=== PATIENT | male | born 1960 | race Caucasian/White ===

== ENCOUNTER 2018-02-16 19:20 | Inpatient (IN) | payer BC ==
[~2018-02-16] VITALS: Ht 188 cm; Wt 116.3 kg
[2018-02-16 20:30] VITALS: BP 100/55; RESP 18
[2018-02-16 20:45] VITALS: BP 111/67; RESP 18
[2018-02-16 21:15] VITALS: Ht 188 cm; Wt 116.3 kg
--- NOTE | 2018-02-16 22:09 | HP ---
Date/Time of Note Date/Time of Note DATE: 02/16/18 TIME: 22:09 Assessment/Plan VTE Prophylaxis Pharmacological prophylaxis: heparin Assessment/Plan Hospital Course This is a 57-year-old male being admitted to the [facility] floor for: #1 left lower extremity cellulitis: Vancomycin IV per pharmacy, at the transfer facility patient did have a white blood cell count of 17.8. Will check an ESR level. #2 left great toe metatarsal wound: Wound does not appear to be draining. At the current time will obtain x-rays. Consider podiatry consultation. #3 diabetes mellitus: We will check a hemoglobin A1c, insulin sliding scale #4 obesity: We will check hemoglobin A1c, lipid panel, TSH #5 DVT GI prophylaxis: Heparin, no GI prophylaxis indicated Further treatment strategy will be implemented as per the clinical course. HPI/ROS Admit Date/Time Admit Date/Time Feb 16, 2018 at 20:38 Hx of Present Illness Chief complaint: Left foot swelling redness times 4 days This is a 57-year-old male who was transferred from an outside facility with complaints of left foot swelling and redness times 4 days. Please note and H&P was not provided in the transfer documentation nor was there any imaging studies provided. Patient reports that for the last 4 days approximately he has noticed left foot swelling and redness. He denies any fevers. He also reports that he has a wound on his left foot below his great toe which has been going on for approximately 1 month. He denies any drainage from the wound. He reports that he takes basaglar insulin as needed and not on a daily basis. Pertinent laboratory findings from transfer facility: White blood cell count 17.8, BUN 27/creatinine 1.58 Allergies: Ceftriaxone Medications: See ANGELINA BENSON Const: As per HPI Eyes : No pain discharge or redness or change in visual acuity ENT: No pain, sore throat, congestion, congestion, dysphagia or discharge Respiratory: No shortness of breath, cough, sputum, wheezing, or pleuritic pain Cardiovascular: No chest pain, palpitation, PND, or edema GI : no change in appetite, abdominal pain, nausea, vomiting, diarrhea, constipation, or change in the color his stool Genitourinary: No dysuria, hematuria, flank pain , discharge or CVA tenderness Musculoskeletal: As per HPI Skin: As per HPI Neuro: No headache, dizziness, syncope, seizure, focal weakness Endocrine: No polyuria, polydipsia, temperature intolerance Psych: No hallucination, depression, anxiety or suicidal ideation PMH/Family/Social Past Medical History Diabetes mellitus Coded Allergies: ceftriaxone (Verified Allergy, Mild, 02/16/18) Past Surgical History Right second toe amputation Family History Significant Family History: no pertinent family hx Social History Alcohol Use: none Smoking Status: Never smoker Drug Use: none Exam/Review of Systems Exam Exam General: Patient is currently lying in bed in no acute distress HEENT: Atraumatic, normocephalic. The pupils are equal, round and reactive. Extraocular motor are intact Neck: Supple with full range of motion. No rigidity or meningismus Chest: Nontender Lungs: Clear to auscultation bilaterally no crackles rales or wheezing Heart: Normal S1-S2, Regular rhythm and rate. No murmur, S3, or S4 Abdomen: Soft , nontender, nondistended , bowel sounds are present. No guarding no rebound tenderness , No masses or organomegaly. No costovertebral temporal angle mass Extremities: Normal to inspection, no edema no cyanosis, right second toe amputation,left great toe metatarsal wound, not draining nontender Skin: Left foot swelling erythema and redness noted of the anterior foot, lines of demarcation drawn from transfer facility, left great toe metatarsal wound, not draining nontender Neurologic: Normal mental status, speech normal, cranial nerves II through XII are intact, motor and sensory are intact, no focal weakness GREGOR LO Feb 16, 2018 22:09
[2018-02-16] MEDS ORDERED: GLUCAGON 1 MG INJ IM PRN (22:30)
[2018-02-16] MEDS ORDERED: DEXTROSE 50% 50 ML SYRINGE IV PRN ×2 (22:30)
[2018-02-16] MEDS ORDERED: DOCUSATE SODIUM 100 MG CAP PO PRN (22:30)
[2018-02-16] MEDS ORDERED: GLUCOSE GEL 15 GRAM TUBE PO PRN ×2 (22:30)
[2018-02-16] MEDS ORDERED: VANCOMYCIN IV PER PHARMACY XX SCH (22:30)
[2018-02-16] MEDS ORDERED: GLUCOSE GEL 15 GRAM TUBE BUCCAL PRN (22:30)
[2018-02-16] MEDS ORDERED: NACL 0.9% 3 ML SYG IV SCH (22:30)
[2018-02-16] MEDS ORDERED: BISACODYL (EC) 5 MG TAB PO PRN (22:30)
[2018-02-16] MEDS ORDERED: ONDANSETRON 4 MG INJ IV PRN (22:30)
[2018-02-16] MEDS: HEPARIN 5,000 UNIT/1 ML VIAL SC SCH (22:48)
[2018-02-16] MEDS: HYDROCODONE/APAP (5/325) TAB PO PRN (22:49)
--- NOTE | 2018-02-16 23:38 | NUR ---
VANCO PER RX PROTOCOL: DAY #1 S/O: 57 YO MALE W/ DM, (R) FOOT CELLULITIS AFEB SCR/BUN = 1.82/35 WBC = 10.2 A/P: SCR ELEVATED: VANCO 2GM LD X 1 DOSE TONIGHT. NO FURTHER VANCO 2/2 ELEVATED SCR. RANDOM VANCO LEVEL WHEN APPROPRIATE TO CHECK VANCO CLEARANCE. WILL CONTINUE TO FOLLOW.
[2018-02-17] MEDS ORDERED: VANCOMYCIN 2 GM in SOD CHLORIDE 0.9% 500 ML IVPB SCH (01:00)
[2018-02-17 01:20] VITALS: BP 99/64; PULSE 73; RESP 18
[2018-02-17 02:00] VITALS: BP 101/66; PULSE 71; RESP 18
[2018-02-17] MEDS ORDERED: ACCU-CHEK XX SCH (02:00)
[2018-02-17] MEDS ORDERED: PENDING SANTYL ORDER FOR WOUND CARE XX PRN (04:30)
[2018-02-17] MEDS ORDERED: COLLAGENASE 5 GM (UD JAR) TOP PRN (05:00)
[2018-02-17] MEDS: HEPARIN 5,000 UNIT/1 ML VIAL SC SCH ×2 (06:09→20:38)
[2018-02-17 07:52] VITALS: BP 118/56; PULSE 98; RESP 18
[2018-02-17] MEDS: INSULIN ASPART [NOVOLOG] 3 ML PEN SC SCH ×4 (08:06→20:34)
--- NOTE | 2018-02-17 08:48 | PN ---
Date/Time of Note Date/Time of Note DATE: 02/17/18 TIME: 08:48 Assessment/Plan VTE Prophylaxis Risk score (from Ns)>0 risk: 3 SCD applied (from Ns): Yes Pharmacological prophylaxis: LMWH Lines/Catheters IV Catheter Type (from Nrs): Saline Lock Urinary Cath still in place: No Assessment/Plan Assessment/Plan 1. Left lower extremity cellulitis - Continue on Vancomycin IV and monitor for improvement 2. Left great toe metatarsal wound - Not draining but states noticed clear discharge - Xray results noted 3. Diabetes Mellitus - A1 noted - started on lantus qhs and will adjust as needed - ISS and accuchecks 4. ALESSANDRO on CKD - Will start on IVF and avoid nephrotoxic agents - Renal US negative for chronic disease or obstruction - If no improvement, will consult nephrology 5. Disposition - Continue monitoring for improvement of ALESSANDRO. Will continue on antibiotics for foot wound Result Diagram: 02/17/18 0532 02/17/18 0532 Results 24hrs Laboratory Tests Test 02/16/18 22:25 02/17/18 04:50 02/17/18 05:32 02/17/18 08:03 White Blood 10.2 9.8 Count Red Blood Count 3.74 L 3.64 L Hemoglobin 11.6 L 11.3 L Hematocrit 33.8 L 33.1 L Mean Corpuscular 90.4 90.9 Volume Mean Corpuscular 31.0 31.0 Hemoglobin Mean Corpuscular 34.3 34.1 Hemoglobin Jenniffer nt Red Cell 12.3 12.3 Distribution Width Platelet Count 306 301 Mean Platelet 9.7 9.7 Volume Immature 0.400 0.500 H Granulocytes % Neutrophils % 91.3 H 92.9 H Lymphocytes % 4.7 L 3.2 L Monocytes % 2.8 1.6 Eosinophils % 0.7 1.7 Basophils % 0.1 0.1 Nucleated Red 0.0 0.0 Blood Cells % Immature 0.040 H 0.050 H Granulocytes # Neutrophils # 9.3 H 9.1 H Lymphocytes # 0.5 L 0.3 L Monocytes # 0.3 0.2 L Eosinophils # 0.1 0.2 Basophils # 0.0 0.0 Nucleated Red 0.0 0.0 Blood Cells # Erythrocyte 70 H Sedimentation Rate Sodium Level 138 137 Potassium Level 3.9 3.9 Chloride Level 106 108 Carbon Dioxide 16 L 16 L Level Anion Gap 16 H 13 Blood Urea 35 H 44 H Nitrogen Creatinine 1.82 H 1.96 H Est Glomerular 39 L 35 L Filtrat Rate mL/min Glucose Level 252 H 308 H Calcium Level 8.9 8.2 L Urine Color SUSAN Urine Clarity CLOUDY A Urine pH 5.0 Urine Specific 1.019 [place] Urine Ketones NEGATIVE Urine Nitrite NEGATIVE Urine Bilirubin NEGATIVE Urine 2+ H Urobilinogen Urine Leukocyte 1+ H Esterase Urine 1 Microscopic RBC Urine 13 H Microscopic WBC Urine Squamous FEW Epithelial Cells Urine Bacteria FEW A Urine Hemoglobin NEGATIVE Urine Glucose 1+ H Urine Total 2+ H Protein Hemoglobin A1c 9.4 H Magnesium Level 1.6 L Total Bilirubin 0.3 Direct Bilirubin 0.00 Indirect 0.3 Bilirubin Aspartate Amino 56 H Transf (AST/SGOT ) Alanine 91 H Aminotransferase (ALT/SGPT) Alkaline 151 H Phosphatase Total Protein 6.0 L Albumin 2.9 L Globulin 3.10 Albumin/Globulin 0.93 Ratio Triglycerides 143 Level Cholesterol 130 Level LDL Cholesterol, 82 Calculated HDL Cholesterol 19 L Cholesterol/HDL 6.8 Ratio Thyroid 0.432 L Stimulating Hormone (TSH) Bedside Glucose 284 H Subjective 24 Hr Interval Summary Free Text/Dictation Patient states pain is well controlled. Discussed renal function and denies having previous history of renal failure. Exam/Review of Systems Vital Signs Vitals Vital Signs Date Temp Pulse Resp B/P (MAP) Pulse Ox O2 O2 Flow FiO2 Time Delivery Rate 02/17/18 99.0 98 18 118/56 95 07:52 (76) Intake and Output 02/16/18 02/16/18 02/17/18 1515:00 23:00 07:00 IntakeIntake Total 120 ml BalanceBalance 120 ml Exam General: No acute distress. awake and answering questions appropriately Neck: Supple Chest: Nontender Lungs: Clear to auscultation bilaterally no crackles rales or wheezing Heart: Normal S1-S2, Regular rhythm and rate. No murmur, S3, or S4 Abdomen: Soft , nontender, nondistended , bowel sounds are present. No guarding no rebound tenderness Extremities: edema left lower extremity Skin: left foot swelling, left great toe metatarsal wound, not draining nontender Medications Medications Current Medications IV Flush (NS 3 ml) 3 ml PER PROTOCOL IV ; Start 02/16/18 at 22:30 Ondansetron HCl (Zofran Inj) 4 mg Q6H PRN IV NAUSEA AND/OR VOMITING; Start 02/16/18 at 22:30 Acetaminophen (Tylenol Tab) 650 mg Q6H PRN PO PAIN LEVEL 1-3 OR FEVER; Start 02/16/18 at 22:30 Acetaminophen/ Hydrocodone Bitart ([place] (5/325)) 1 tab Q6H PRN PO MODERATE PAIN LEVEL 4-6 Last administered on 02/16/18at 22:49; Admin Dose 1 TAB; Start 02/16/18 at 22:30 Docusate Sodium (Colace) 100 mg Q12H PRN PO CONSTIPATION; Start 02/16/18 at 22:30 Bisacodyl (Dulcolax) 5 mg DAILY PRN PO CONSTIPATION; Start 02/16/18 at 22:30 Heparin Sodium (Porcine) (Heparin (5000 Units/1ml)) 5,000 unit Q8 SC Last administered on 02/17/18at 06:09; Admin Dose 5,000 UNIT; Start 02/16/18 at 22:30 Vancomycin HCl (Vanco Iv Per Pharmacy) VANCOMYCIN PER PHARMACY PER PROTOCOL XX ; Start 02/16/18 at 22:30 Diagnostic Test (Pha) (Accu-Chek) 1 ea 02 XX ; Start 02/17/18 at 02:00 Insulin Aspart (Novolog Insulin Pen) NOVOLOG *MILD* ALGORITHM WITH MEALS BEDTIME SC Last administered on 02/17/18at 08:06; Admin Dose 4 UNIT; Start 02/17/18 at 08:00 Miscellaneous Information 1 ea NOTE XX ; Start 02/16/18 at 22:30 Glucose (Glutose) 15 gm Q15M PRN PO DECREASED GLUCOSE; Start 02/16/18 at 22:30 Glucose (Glutose) 22.5 gm Q15M PRN PO DECREASED GLUCOSE; Start 02/16/18 at 22:30 Dextrose (D50w Syringe) 25 ml Q15M PRN IV DECREASED GLUCOSE; Start 02/16/18 at 22:30 Dextrose (D50w Syringe) 50 ml Q15M PRN IV DECREASED GLUCOSE; Start 02/16/18 at 22:30 Glucagon (Glucagen) 1 mg Q15M PRN IM DECREASED GLUCOSE; Start 02/16/18 at 22:30 Glucose (Glutose) 15 gm Q15M PRN BUCCAL DECREASED GLUCOSE; Start 12/24/18 at 22:30 Influenza Virus Vaccine Quadrival (Fluzone) 0.5 ml ONCE ONCE IM* ; Start 02/17/18 at 09:00; Stop 02/17/18 at 09:01 Miscellaneous Information (Pending Santyl Order For Wound Care) This patient zimmerman... PRN PRN XX Stage 3/4 wound ; Start 02/17/18 at 04:30 Collagenase (Santyl) 1 applic DAILY TOP ; Start 02/17/18 at 09:00 Collagenase (Santyl) 1 applic PRN PRN TOP WHEN SOILED; Start 02/17/18 at 05:00 Magnesium Oxide (Mag-Ox 400) 400 mg ONCE ONCE PO ; Start 02/17/18 at 09:00; Stop 02/17/18 at 09:01; Status UNKATIE SANTIAGO MD Feb 17, 2018 08:48
[2018-02-17] MEDS ORDERED: MAGNESIUM OXIDE 400 MG TAB PO ONE (09:00)
[2018-02-17] MEDS: COLLAGENASE 5 GM (UD JAR) TOP SCH (09:28)
[2018-02-17] MEDS: SOD CHLORIDE 0.9% 1,000 ML IV SCH ×2 (09:30→20:17)
[2018-02-17 14:32] VITALS: BP 90/57; PULSE 109; RESP 16
--- NOTE | 2018-02-17 15:44 | CONS ---
Date/Time of Note Date/Time of Note DATE: 02/17/18 TIME: 15:44 Assessment/Plan Assessment/Plan Additional Assessment/Plan 1) Left foot diabetic ulcer 2) Cellulitis 3) DM2 with peripheral neuropathy 4) LLE edema 5) Obesity Plan: Consent was obtained and performed excisional debridement of skin/subQ/m uscle/fascia tissue of the left diabetic foot ulcer using a scalpel blade, potato picker and scissors. Less than 20cm2 area of debridement was performed. Necrotic tissue, fibrotic tissue, hyperkeratotic tissue was removed. 2mL of purulence was expressed. Copious irrigation at the ulcer site. Wound cultures were obtained. Recommend daily dakins irrigation then apply 4x4 betadine gauze, kerlix and jennifer wrap. Continue with IV abx per recommendations. Recommend offloading with pillows. Non-invasive arterial studies reviewed. X-rays reviewed no soft tissue emphysema appreciated. Medical decisions, treatment, and plan coordinated with Dr. Perez. Consultation Date/Type/Reason Admit Date/Time Feb 16, 2018 at 20:38 Hx of Present Illness 57 y/o diabetic M patient presents to the floor with left foot ulceration which has been present for over a month but has worsened in the past 6 days. Patient had attempted to manage it himself but noticed it was not improving. He noticed increased swelling, redness, and drainage. Patient relates the wound caused by ill fitting shoes. Patient denies f/c/n/v no chest pain or shortness of breath. ROS Const: As per HPI Eyes : No pain discharge or redness or change in visual acuity ENT: No pain, sore throat, congestion, congestion, dysphagia or discharge Respiratory: No shortness of breath, cough, sputum, wheezing, or pleuritic pain Cardiovascular: No chest pain, palpitation, PND, or edema GI : no change in appetite, abdominal pain, nausea, vomiting, diarrhea, constipation, or change in the color his stool Genitourinary: No dysuria, hematuria, flank pain , discharge or CVA tenderness Musculoskeletal: As per HPI Skin: As per HPI Neuro: No headache, dizziness, syncope, seizure, focal weakness Endocrine: No polyuria, polydipsia, temperature intolerance Psych: No hallucination, depression, anxiety or suicidal ideation Past Medical History DM Medications Current Medications IV Flush (NS 3 ml) 3 ml PER PROTOCOL IV ; Start 02/16/18 at 22:30 Ondansetron HCl (Zofran Inj) 4 mg Q6H PRN IV NAUSEA AND/OR VOMITING; Start 02/16/18 at 22:30 Acetaminophen (Tylenol Tab) 650 mg Q6H PRN PO PAIN LEVEL 1-3 OR FEVER; Start 02/16/18 at 22:30 Acetaminophen/ Hydrocodone Bitart ([place] (5/325)) 1 tab Q6H PRN PO MODERATE PAIN LEVEL 4-6 Last administered on 02/16/18at 22:49; Admin Dose 1 TAB; Start 02/16/18 at 22:30 Docusate Sodium (Colace) 100 mg Q12H PRN PO CONSTIPATION; Start 02/16/18 at 22:30 Bisacodyl (Dulcolax) 5 mg DAILY PRN PO CONSTIPATION; Start 02/16/18 at 22:30 Vancomycin HCl (Vanco Iv Per Pharmacy) VANCOMYCIN PER PHARMACY PER PROTOCOL XX ; Start 02/16/18 at 22:30 Insulin Aspart (Novolog Insulin Pen) NOVOLOG *MILD* ALGORITHM WITH MEALS BEDTIME SC Last administered on 02/17/18at 12:13; Admin Dose 7 UNIT; Start 02/17/18 at 08:00 Miscellaneous Information 1 ea NOTE XX ; Start 02/16/18 at 22:30 Glucose (Glutose) 15 gm Q15M PRN PO DECREASED GLUCOSE; Start 02/16/18 at 22:30 Glucose (Glutose) 22.5 gm Q15M PRN PO DECREASED GLUCOSE; Start 02/16/18 at 22:30 Dextrose (D50w Syringe) 25 ml Q15M PRN IV DECREASED GLUCOSE; Start 02/16/18 at 22:30 Dextrose (D50w Syringe) 50 ml Q15M PRN IV DECREASED GLUCOSE; Start 02/16/18 at 22:30 Glucagon (Glucagen) 1 mg Q15M PRN IM DECREASED GLUCOSE; Start 02/16/18 at 22:30 Glucose (Glutose) 15 gm Q15M PRN BUCCAL DECREASED GLUCOSE; Start 02/16/18 at 22:30 Miscellaneous Information (Pending Santyl Order For Wound Care) This patient zimmerman... PRN PRN XX Stage 3/4 wound ; Start 02/17/18 at 04:30 Collagenase (Santyl) 1 applic DAILY TOP Last administered on 02/17/18at 09:28; Admin Dose 1 APPLIC; Start 02/17/18 at 09:00 Collagenase (Santyl) 1 applic PRN PRN TOP WHEN SOILED; Start 02/17/18 at 05:00 Heparin Sodium (Porcine) (Heparin (5000 Units/1ml)) 5,000 unit Q12 SC ; Start 02/17/18 at 21:00 Sodium Chloride 1,000 ml @ 100 mls/hr Q10H IV Last administered on 02/17/18at 09:30; Admin Dose 100 MLS/HR; Start 02/17/18 at 09:00 Insulin Glargine (Lantus) 23 units QHS SC ; Start 02/17/18 at 21:00 Allergies: Coded Allergies: ceftriaxone (Verified Allergy, Mild, 02/16/18) Past Surgical History right 2nd digit amputation Family History Significant Family History: no pertinent family hx Social History Alcohol Use: none Smoking Status: Never smoker Drug Use: none Exam/Review of Systems Vital Signs Vitals Vital Signs Date Temp Pulse Resp B/P (MAP) Pulse Ox O2 O2 Flow FiO2 Time Delivery Rate 02/17/18 99.3 109 16 90/57 (68) 97 14:32 Intake and Output 02/16/18 02/16/18 02/17/18 1515:00 23:00 07:00 IntakeIntake Total 120 ml BalanceBalance 120 ml Exam DP/PT pulses palpable Absent protective sensations 2+ pitting edema to left lower extremity Left 1st MPJ ulceration with necrotic wound base and maceration and hyperkeratotic tissue noted. Measuring 2 x 2 x 1.5cm. There is purulence expressed at the ulcer site. The wound probes to joint capsule and laterally. There is surrounding erythema. Left medial 2nd digit site appreciated a partial thickness wound measuring 0.4 x 0.4 x 0.1 with surrounding HPK and maceration appreciated. 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 Arterial studies IMPRESSION: 1. No sonographic evidence for hemodynamically significant arterial stenosis or occlusion in the bilateral lower extremities. 2. Left dorsalis pedis artery was not evaluated due to overlying bandage. 3. Normal bilateral ankle brachial indices. Medications Medications Current Medications IV Flush (NS 3 ml) 3 ml PER PROTOCOL IV ; Start 02/16/18 at 22:30 Ondansetron HCl (Zofran Inj) 4 mg Q6H PRN IV NAUSEA AND/OR VOMITING; Start 02/16/18 at 22:30 Acetaminophen (Tylenol Tab) 650 mg Q6H PRN PO PAIN LEVEL 1-3 OR FEVER; Start 02/16/18 at 22:30 Acetaminophen/ Hydrocodone Bitart ([place] (5/325)) 1 tab Q6H PRN PO MODERATE PAIN LEVEL 4-6 Last administered on 02/16/18at 22:49; Admin Dose 1 TAB; Start 02/16/18 at 22:30 Docusate Sodium (Colace) 100 mg Q12H PRN PO CONSTIPATION; Start 02/16/18 at 22:30 Bisacodyl (Dulcolax) 5 mg DAILY PRN PO CONSTIPATION; Start 02/16/18 at 22:30 Vancomycin HCl (Vanco Iv Per Pharmacy) VANCOMYCIN PER PHARMACY PER PROTOCOL XX ; Start 02/16/18 at 22:30 Insulin Aspart (Novolog Insulin Pen) NOVOLOG *MILD* ALGORITHM WITH MEALS BEDTIME SC Last administered on 02/17/18at 12:13; Admin Dose 7 UNIT; Start 02/17/18 at 08:00 Miscellaneous Information 1 ea NOTE XX ; Start 02/16/18 at 22:30 Glucose (Glutose) 15 gm Q15M PRN PO DECREASED GLUCOSE; Start 02/16/18 at 22:30 Glucose (Glutose) 22.5 gm Q15M PRN PO DECREASED GLUCOSE; Start 02/16/18 at 22:30 Dextrose (D50w Syringe) 25 ml Q15M PRN IV DECREASED GLUCOSE; Start 02/16/18 at 22:30 Dextrose (D50w Syringe) 50 ml Q15M PRN IV DECREASED GLUCOSE; Start 02/16/18 at 22:30 Glucagon (Glucagen) 1 mg Q15M PRN IM DECREASED GLUCOSE; Start 02/16/18 at 22:30 Glucose (Glutose) 15 gm Q15M PRN BUCCAL DECREASED GLUCOSE; Start 02/16/18 at 22:30 Miscellaneous Information (Pending Santyl Order For Wound Care) This patient h a... PRN PRN XX Stage 3/4 wound ; Start 02/17/18 at 04:30 Collagenase (Santyl) 1 applic DAILY TOP Last administered on 02/17/18at 09:28; Admin Dose 1 APPLIC; Start 02/17/18 at 09:00 Collagenase (Santyl) 1 applic PRN PRN TOP WHEN SOILED; Start 02/17/18 at 05:00 Heparin Sodium (Porcine) (Heparin (5000 Units/1ml)) 5,000 unit Q12 SC ; Start 02/17/18 at 21:00 Sodium Chloride 1,000 ml @ 100 mls/hr Q10H IV Last administered on 02/17/18at 09:30; Admin Dose 100 MLS/HR; Start 02/17/18 at 09:00 Insulin Glargine (Lantus) 23 units QHS SC ; Start 02/17/18 at 21:00 NIMISHA HENNING DPM Feb 17, 2018 15:44
--- NOTE | 2018-02-17 16:02 | NUR ---
RN Notes: Patient remains alert and oriented, noted with temp running 99.3 and pulse >90 also blood sugar >350 Dr. Rodriguez aware. No acute distress noted, denies pain/discomfort, no sob noted. Dr. Botson came and explained to pt regarding planned for wound debridement on his left foot, pt verbalized understanding and signed consent. MD did left foot wound debridement, tolerated well, wound culture send and wound care ordered. covered with gauze with Betadine Kerlix dressing and jennifer wrap. Unable to adm. FLU Vaccine this time due to temp >99.0. Hourly rounding done, call light within reach, bed alarm on. Will continue to monitor until the end of the shift.
[2018-02-17] MEDS: GUAIFENESIN 20 MG/ML 5ML CUP PO PRN (18:13)
[2018-02-17 19:33] VITALS: BP 101/50; PULSE 114; RESP 18
[2018-02-17] MEDS: ACETAMINOPHEN 325 MG TAB PO PRN (20:16)
[2018-02-17] MEDS ORDERED: INSULIN GLARGINE [LANTus] (100 UNITS/ML) SYG SC SCH (21:00)
[2018-02-18 02:00] VITALS: BP 117/64; PULSE 99; RESP 20
[2018-02-18] MEDS: GUAIFENESIN 20 MG/ML 5ML CUP PO PRN (02:43)
[2018-02-18] MEDS: SOD CHLORIDE 0.9% 1,000 ML IV SCH (06:14)
--- NOTE | 2018-02-18 07:39 | NUR ---
1915 Pt received aaox4, oriented to oncoming nurse and [facility] safety protocol including active bed alarm & hourly rounding. Pt verbalized understanding, denied further needs at this time. Pt denies the presence of pain. 2100 All scheduled medications administered w/o difficulty, bloodsugar 368 Dr. Eason contacted and made aware, orders to administer a total of 5 units of novolog in addition to 25 units of scheduled lantus. Nursing will continue to monitor. 0000 Pt resting comfortably in bed, denies needs at this time. 0230 BS 306 [id number] No significant changes throughout the night, Pt resting comfortably in bed utilizes urinal. No BM. Vitals signs stable, will endorse to morning shift for continuity of care.
[2018-02-18 07:52] VITALS: BP 125/84; PULSE 103; RESP 16
[2018-02-18] MEDS: INSULIN ASPART [NOVOLOG] 3 ML PEN SC SCH ×4 (07:56→20:16)
--- NOTE | 2018-02-18 08:35 | PN ---
Date/Time of Note Date/Time of Note DATE: 02/18/18 TIME: 08:35 Assessment/Plan VTE Prophylaxis Risk score (from Ns)>0 risk: 3 SCD applied (from Ns): Yes Pharmacological prophylaxis: LMWH Lines/Catheters IV Catheter Type (from Nrsg): Peripheral IV Urinary Cath still in place: No Assessment/Plan Assessment/Plan 1. Left lower extremity cellulitis - ID consultation placed for antibiotic recommendations - Continue on broad spectrum antibiotics at this time. 2. Left great toe metatarsal wound s/p debridement 02/17 - Podiatry on board and appreciate consultation. Continue offloading left foot while in bed. - Cultures sent given presence of purulent drainage - Xray results noted 3. Diabetes Mellitus - A1 noted - started on Lantus qhs and will adjust as needed - ISS and accuchecks 4. ALESSANDRO on CKD- improving - will avoid nephrotoxic agents and monitor renal function - Renal US negative for chronic disease or obstruction 5. Disposition - Will need to await final cultures to determine which antibiotics needed at time of discharge Result Diagram: 02/17/18 0532 02/18/18 0519 Results 24hrs Laboratory Tests Test 02/17/18 12:09 02/17/18 17:11 02/17/18 20:27 02/18/18 02:46 Bedside Glucose 382 H 310 H 368 H 306 H Test 02/18/18 05:19 02/18/18 07:54 Sodium Level 139 Potassium Level 3.8 Chloride Level 113 H Carbon Dioxide 16 L Level Anion Gap 10 Blood Urea 37 H Nitrogen Creatinine 1.43 H Est Glomerular 51 L Filtrat Rate mL/min Glucose Level 285 H Calcium Level 8.1 L Magnesium Level 1.8 Total Bilirubin 0.2 Direct Bilirubin 0.00 Indirect 0.2 Bilirubin Aspartate Amino 30 Transf (AST/SGOT ) Alanine 78 H Aminotransferase (ALT/SGPT) Alkaline 184 H Phosphatase Total Protein 5.9 L Albumin 2.9 L Globulin 3.00 Albumin/Globulin 0.96 Ratio Random 8.0 Vancomycin Level Bedside Glucose 296 H Subjective 24 Hr Interval Summary Free Text/Dictation Patient complaining of nonproductive cough and current antitussive not helping. Tolerating debridement of left foot yesterday. Discussed needing better control of DM. States takes insulin at home and will need to obtain med rec. Exam/Review of Systems Vital Signs Vitals Vital Signs Date Temp Pulse Resp B/P (MAP) Pulse Ox O2 O2 Flow FiO2 Time Delivery Rate 02/18/18 98.7 103 16 125/84 93 07:52 (98) Intake and Output 02/17/18 02/17/18 02/18/18 1414:59 22:59 06:59 IntakeIntake Total 60 ml 2400 ml 200 ml OutputOutput Total 300 ml 1800 ml 1150 ml BalanceBalance -240 ml 600 ml -950 ml Exam General: No acute distress. awake and answering questions appropriately Neck: Supple Lungs: Clear to auscultation bilaterally no crackles rales or wheezing Heart: Normal S1-S2, Regular rhythm and rate. No murmur, S3, or S4 Abdomen: Soft , nontender, nondistended , bowel sounds are present. No guarding no rebound tenderness Extremities: edema left lower extremity with warmth. wrapped in kerlix with no discharge or drainage appreciated Medications Medications Current Medications IV Flush (NS 3 ml) 3 ml PER PROTOCOL IV ; Start 02/16/18 at 22:30 Ondansetron HCl (Zofran Inj) 4 mg Q6H PRN IV NAUSEA AND/OR VOMITING; Start 02/16/18 at 22:30 Acetaminophen (Tylenol Tab) 650 mg Q6H PRN PO PAIN LEVEL 1-3 OR FEVER Last administered on 02/17/18at 20:16; Admin Dose 650 MG; Start 02/16/18 at 22:30 Acetaminophen/ Hydrocodone Bitart ([place] (5/325)) 1 tab Q6H PRN PO MODERATE PAIN LEVEL 4-6 Last administered on 02/16/18at 22:49; Admin Dose 1 TAB; Start 02/16/18 at 22:30 Docusate Sodium (Colace) 100 mg Q12H PRN PO CONSTIPATION; Start 02/16/18 at 22:30 Bisacodyl (Dulcolax) 5 mg DAILY PRN PO CONSTIPATION; Start 02/16/18 at 22:30 Vancomycin HCl (Vanco Iv Per Pharmacy) VANCOMYCIN PER PHARMACY PER PROTOCOL XX ; Start 02/16/18 at 22:30 Insulin Aspart (Novolog Insulin Pen) NOVOLOG *MILD* ALGORITHM WITH MEALS BEDTIME SC Last administered on 02/18/18at 07:56; Admin Dose 4 UNIT; Start 02/17/18 at 08:00 Miscellaneous Information 1 ea NOTE XX ; Start 02/16/18 at 22:30 Glucose (Glutose) 15 gm Q15M PRN PO DECREASED GLUCOSE; Start 02/16/18 at 22:30 Glucose (Glutose) 22.5 gm Q15M PRN PO DECREASED GLUCOSE; Start 02/16/18 at 22:30 Dextrose (D50w Syringe) 25 ml Q15M PRN IV DECREASED GLUCOSE; Start 02/16/18 at 22:30 Dextrose (D50w Syringe) 50 ml Q15M PRN IV DECREASED GLUCOSE; Start 02/16/18 at 22:30 Glucagon (Glucagen) 1 mg Q15M PRN IM DECREASED GLUCOSE; Start 02/16/18 at 22:30 Glucose (Glutose) 15 gm Q15M PRN BUCCAL DECREASED GLUCOSE; Start 02/16/18 at 22:30 Miscellaneous Information (Pending Santyl Order For Wound Care) This patient zimmerman... PRN PRN XX Stage 3/4 wound ; Start 02/17/18 at 04:30 Collagenase (Santyl) 1 applic DAILY TOP Last administered on 02/17/18at 09:28; Admin Dose 1 APPLIC; Start 02/17/18 at 09:00 Collagenase (Santyl) 1 applic PRN PRN TOP WHEN SOILED; Start 02/17/18 at 05:00 Heparin Sodium (Porcine) (Heparin (5000 Units/1ml)) 5,000 unit Q12 SC Last administered on 02/17/18at 20:38; Admin Dose 5,000 UNIT; Start 02/17/18 at 21:00 Sodium Chloride 1,000 ml @ 100 mls/hr Q10H IV Last administered on 02/18/18at 06:14; Admin Dose 100 MLS/HR; Start 02/17/18 at 09:00 Insulin Glargine (Lantus) 23 units QHS SC Last administered on 02/17/18at 20:30; Admin Dose 23 UNITS; Start 02/17/18 at 21:00 Sodium Hypochlorite (Dakin'S (Dilute 40)) 1 applic DAILY IRR ; Start 02/18/18 at 09:00 Guaifenesin (Robitussin Liquid Cup) 100 mg Q4H PRN PO COUGH Last administered on 02/18/18at 02:43; Admin Dose 100 MG; Start 02/17/18 at 18:00 KATIE RUTLEDGE MD Feb 18, 2018 08:35
[2018-02-18] MEDS ORDERED: LEVOFLOXACIN 750MG/D5W (PMX) 150 ML IVPB SCH (09:00)
[2018-02-18] MEDS: HEPARIN 5,000 UNIT/1 ML VIAL SC SCH ×2 (09:05→20:17)
[2018-02-18] MEDS: COLLAGENASE 5 GM (UD JAR) TOP SCH (09:05)
--- NOTE | 2018-02-18 10:59 | NUR ---
RX NOTE RE: VANCOMYCIN DAY#3 OF VANCOMYCIN PER RX BUN/SCR: 37/1.43 TMAX: 98.8 ALLERGIES: ROCEPHIN VANCO RANDOM: 8 RENAL FUNCTION IMPROVING. DOSE VANCOMYCIN 1GM IV Q12HR. PHARMACY TO FOLLOW
[2018-02-18] MEDS: VANCOMYCIN 1 GM 250 ML IVPB SCH ×2 (11:11→22:52)
[2018-02-18] MEDS: SODIUM HYPOCHLORITE (1/40) 1 APPLIC BTL IRR SCH (11:11)
--- NOTE | 2018-02-18 12:57 | CONS ---
DATE OF ADMISSION: 02/16/2018 DATE OF CONSULTATION: 02/18/2018 TYPE OF CONSULTATION: Infectious disease. REASON FOR CONSULTATION: Antibiotic management. HISTORY OF PRESENT ILLNESS: You Park is a 57-year-old male admitted on 2017 with left lower extremity cellulitis and diabetic foot wound and is being seen for antibiotic ma nagement. The patient was transferred from an outside hospital with complaints of left foot swelling and redness 4 days prior to admission. He reports that for the last 4 days prior to admission he no ticed left foot swelling and redness. Denies fevers. He also reports that he has a wound on his lef t foot below his great toe which has been going on for approximately 1 month. He denies any drainage from the wound. He takes insulin as needed, not on a daily basis. On admission, his white count wa s 10.2, H and H 11.6 and 33.8, platelet count of 306,000. On 02/17/2018, his white count was 9.8. H is MRSA screening is in process. An x-ray of the foot shows soft tissue injury, underlying 1st metat arsal of the left foot medially; otherwise unremarkable images of the left foot. There is no sonogra phic evidence for hemodynamically significant arterial stenosis. Left dorsalis pedis artery was not evaluated due to overlying bandage. The patient was seen by Dr. Boston and he noted left foot sanjeev betic ulcer, cellulitis, diabetes with peripheral neuropathy, left lower extremity edema, obesity. T he patient had debridement of skin and subcutaneous tissue, muscle, fascia of the left diabetic foot. Necrotic tissue and fibrotic tissue and hyperkeratotic tissue were removed. A 2 mL of purulence wa s expressed. Copious irrigation at the ulcer site. Wound cultures were obtained. We recommended da camille Dakin's irrigation and 4 x 4 Betadine gauze, Kerlix and Adrien wrap to the wound. PAST MEDICAL HISTORY: Operations as outlined. FAMILY HISTORY: Noncontributory. SOCIAL HISTORY: He does not smoke, drink or abuse drugs. ALLERGIES: CEFTRIAXONE. PAST SURGICAL HISTORY: Right 2nd toe amputation. MEDICATIONS: Per chart. REVIEW OF SYSTEMS: Noncontributory. PHYSICAL EXAMINATION: GENERAL: The patient is awake, responsive, lying in bed in no acute distress. VITAL SIGNS: Stable. He is afebrile. SKIN: Without generalized rash. HEENT: Within normal limits. NECK: Supple. LYMPH NODES: None palpable. CHEST: Decreased breath sounds at the bases. HEART: Without murmur or gallop. ABDOMEN: Soft, nontender without organosplenomegaly or masses. EXTREMITIES: There is a right 2nd toe amputation, left great toe metatarsal wound not draining or te nder at the present time. RECTAL AND GENITAL: Deferred. NEUROLOGIC: No focal neurological abnormality. IMPRESSION AND PLAN: The patient is with diabetic foot ulcer. Continue on vancomycin and Levaquin. I will dictate my findings to the hospitalist and to Dr. Boston and Dr. Perez. Dictated By: MANE LEE MD, JD/LUCIEN Conf#: [id number] DID#: [id number] CC: KATIE RUTLEDGE MD; ALEX FARLEY MD;*EndCC*
--- NOTE | 2018-02-18 14:30 | PN ---
Date/Time of Note Date/Time of Note DATE: 02/18/18 TIME: 14:29 Assessment/Plan VTE Prophylaxis Risk score (from Nsg)>0 risk: 5 SCD applied (from Nsg): Yes Pharmacological prophylaxis: heparin Lines/Catheters IV Catheter Type (from Nrsg): Peripheral IV Urinary Cath still in place: No Assessment/Plan Hospital Course 57 y/o diabetic M patient presents to the floor with left foot ulceration which has been present for over a month but has worsened in the past 6 days. Patient had attempted to manage it himself but noticed it was not improving. He noticed increased swelling, redness, and drainage. Patient relates the wound caused by ill fitting shoes. Patient denies f/c/n/v no chest pain or shortness of breath. Assessment/Plan 1) Left foot diabetic ulcer 2) Cellulitis 3) DM2 with peripheral neuropathy 4) LLE edema 5) Obesity Plan: excisional debridement of skin/subQ/muscle/fascia tissue of the left diabetic foot ulcer using a scalpel blade, rock picker and scissors. Less than 20cm2 area of debridement was performed. Fibrotic tissue, hyperkeratotic tissue was removed. scant purulence noted. Copious irrigation at the ulcer site. Wound cultures sh owing mixed gram neg organisms. Recommend daily dakins irrigation then apply 4x4 betadine gauze, kerlix and jennifer wrap. Continue with IV abx per recommendations. Recommend offloading with pillows. X-rays reviewed no soft tissue emphysema appreciated. MRI reviewed with soft tissue swelling and no d efined abscess formation. Concern for cyanotic appearance of left hallux. Repeat non-invasive studies as they could not visualize the DP artery and recommend vascular consult. Medical decisions, treatment, and plan coordinated with Dr. Perez. Result Diagram: 02/17/18 0532 02/18/18 0519 Results 24hrs Laboratory Tests Test 02/17/18 17:11 02/17/18 20:27 02/18/18 02:46 02/18/18 05:19 Bedside Glucose 310 H 368 H 306 H Erythrocyte 63 H Sedimentation Rate Sodium Level 139 Potassium Level 3.8 Chloride Level 113 H Carbon Dioxide 16 L Level Anion Gap 10 Blood Urea 37 H Nitrogen Creatinine 1.43 H Est Glomerular 51 L Filtrat Rate mL/min Glucose Level 285 H Calcium Level 8.1 L Magnesium Level 1.8 Total Bilirubin 0.2 Direct Bilirubin 0.00 Indirect 0.2 Bilirubin Aspartate Amino 30 Transf (AST/SGOT ) Alanine 78 H Aminotransferase (ALT/SGPT) Alkaline 184 H Phosphatase C-Reactive 20.8 H Protein Total Protein 5.9 L Albumin 2.9 L Globulin 3.00 Albumin/Globulin 0.96 Ratio Random 8.0 Vancomycin Level Test 02/18/18 07:54 02/18/18 12:55 Bedside Glucose 296 H 341 H Subjective 24 Hr Interval Summary Free Text/Dictation No acute events overnight. Exam/Review of Systems Vital Signs Vitals Vital Signs Date Temp Pulse Resp B/P (MAP) Pulse Ox O2 O2 Flow FiO2 Time Delivery Rate 02/18/18 98.7 103 16 125/84 93 07:52 (98) Intake and Output 02/17/18 02/17/18 02/18/18 1515:00 23:00 07:00 IntakeIntake Total 60 ml 2400 ml 200 ml OutputOutput Total 300 ml 1800 ml 1150 ml BalanceBalance -240 ml 600 ml -950 ml Exam DP/PT pulses palpable Absent protective sensations 2+ pitting edema to left lower extremity Left 1st MPJ ulceration with necrotic wound base and maceration and hyperkeratotic tissue noted. Measuring 2 x 2 x 1.5cm. There is purulence expressed at the ulcer site. The wound probes to joint capsule and laterally. There is surrounding erythema. There is cyanosis noted to the L hallux Left medial 2nd digit site appreciated a partial thickness wound measuring 0.4 x 0.4 x 0.1 with surrounding HPK and maceration appreciated. 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 MRI L foot IMPRESSION: 1. Focal soft tissue ulceration along the plantar medial aspect of the hallux sesamoid articulation with associated soft tissue sinus tract that terminates and fluid at the base of the medial sesamoid. There is no MR evidence of organizing soft tissue abscess. The fluid collection abuts the plantar medial c ortex of the medial sesamoid however there is no MR evidence of osteomyelitis. 2. Near circumferential significant soft tissue inflammation about the forefoot predominating on the plantar medial aspect of the level of the first MTP joint. 3. Mild marrow edema signal of the medial head of the first metatarsal. Findings are likely related to degenerative changes and are associated with mild thickening of the medial capsule ligament. Non-invasive arterial studies IMPRESSION: 1. No sonographic evidence for hemodynamically significant arterial stenosis or occlusion in the bilateral lower extremities. 2. Left dorsalis pedis artery was not evaluated due to overlying bandage. 3. Normal bilateral ankle brachial indices. Foot X-ray IMPRESSION: 1. Soft tissue injury overlying the first metatarsal phalangeal joint medially. 2. Otherwise unremarkable images of the left foot. Medications Medications Current Medications IV Flush (NS 3 ml) 3 ml PER PROTOCOL IV ; Start 02/16/18 at 22:30 Ondansetron HCl (Zofran Inj) 4 mg Q6H PRN IV NAUSEA AND/OR VOMITING; Start 02/16/18 at 22:30 Acetaminophen (Tylenol Tab) 650 mg Q6H PRN PO PAIN LEVEL 1-3 OR FEVER Last administered on 02/17/18at 20:16; Admin Dose 650 MG; Start 02/16/18 at 22:30 Acetaminophen/ Hydrocodone Bitart ([place] (5/325)) 1 tab Q6H PRN PO MODERATE PAIN LEVEL 4-6 Last administered on 02/16/18at 22:49; Admin Dose 1 TAB; Start 02/16/18 at 22:30 Docusate Sodium (Colace) 100 mg Q12H PRN PO CONSTIPATION; Start 02/16/18 at 22:30 Bisacodyl (Dulcolax) 5 mg DAILY PRN PO CONSTIPATION; Start 02/16/18 at 22:30 Vancomycin HCl (Vanco Iv Per Pharmacy) VANCOMYCIN PER PHARMACY PER PROTOCOL XX ; Start 02/16/18 at 22:30 Insulin Aspart (Novolog Insulin Pen) NOVOLOG *MILD* ALGORITHM WITH MEALS BEDTIME SC Last administered on 02/18/18at 12:57; Admin Dose 5 UNIT; Start 02/17/18 at 08:00 Miscellaneous Information 1 ea NOTE XX ; Start 02/16/18 at 22:30 Glucose (Glutose) 15 gm Q15M PRN PO DECREASED GLUCOSE; Start 02/16/18 at 22:30 Glucose (Glutose) 22.5 gm Q15M PRN PO DECREASED GLUCOSE; Start 02/16/18 at 22:30 Dextrose (D50w Syringe) 25 ml Q15M PRN IV DECREASED GLUCOSE; Start 02/16/18 at 22:30 Dextrose (D50w Syringe) 50 ml Q15M PRN IV DECREASED GLUCOSE; Start 02/16/18 at 22:30 Glucagon (Glucagen) 1 mg Q15M PRN IM DECREASED GLUCOSE; Start 02/16/18 at 22:30 Glucose (Glutose) 15 gm Q15M PRN BUCCAL DECREASED GLUCOSE; Start 02/16/18 at 22:30 Miscellaneous Information (Pending Santyl Order For Wound Care) This patient zimmerman... PRN PRN XX Stage 3/4 wound ; Start 02/17/18 at 04:30 Collagenase (Santyl) 1 applic DAILY TOP Last administered on 02/18/18at 09:05; Admin Dose 1 APPLIC; Start 02/17/18 at 09:00 Collagenase (Santyl) 1 applic PRN PRN TOP WHEN SOILED; Start 02/17/18 at 05:00 Heparin Sodium (Porcine) (Heparin (5000 Units/1ml)) 5,000 unit Q12 SC Last administered on 02/18/18at 09:05; Admin Dose 5,000 UNIT; Start 02/17/18 at 21:00 Sodium Hypochlorite (Dakin'S (Dilute )) 1 applic DAILY IRR Last ad ministered on 02/18/18at 11:11; Admin Dose 1 APPLIC; Start 02/18/18 at 09:00 Levofloxacin/ Dextrose 150 ml @ 100 mls/hr Q48H IVPB Last administered on 02/18/18at 09:05; Admin Dose 100 MLS/HR; Start 02/18/18 at 09:00 Vancomycin HCl 250 ml @ 125 mls/hr Q12H IVPB Last administered on 02/18/18at 1 1:11; Admin Dose 125 MLS/HR; Start 02/18/18 at 11:00 Guaifenesin/ Dextromethorphan (Robitussin Dm Liquid Cup) 10 ml Q4H PRN PO cough; Start 02/18/18 at 12:00 Insulin Glargine (Lantus) 40 units QHS SC ; Start 02/18/18 at 21:00 NIMISHA HENNING DPM Feb 18, 2018 14:30
[2018-02-18 14:38] VITALS: BP 109/58; PULSE 97; RESP 16
--- NOTE | 2018-02-18 15:59 | NUR ---
WOUND CARE CONSULTATION NOTE: Patient is being followed by DPM, Dr. Mick Boston for diabetic foot wounds. Please follow treatment recommendations per MD. coach tour driver signing off on this case. Please contact the Wound Care Dept for any additional encounters Thank you Suzette Martinez, RN, MSN, CCRN, [facility]
[2018-02-18] MEDS: GUAIFENESIN/DM 5ML CUP PO PRN ×2 (17:30→22:39)
--- NOTE | 2018-02-18 19:06 | NUR ---
END OF SHIFT NOTE Left foot dressing changed by Dr. Boston. Clean, dry and intact. Left foot raised on leg elevator. Blood glucose high during shift. Lantus adjusted per MD. Urinal at bedside. Denied pain. PT tomorrow to eval pt ambulation status. Bed in lowest position and call light wtihin reach.
[2018-02-18] MEDS: ACETAMINOPHEN 325 MG TAB PO PRN (20:06)
[2018-02-18 20:13] VITALS: BP 138/75; PULSE 118; RESP 17
[2018-02-18] MEDS ORDERED: INSULIN GLARGINE [LANTus] (100 UNITS/ML) SYG SC SCH (21:00)
[2018-02-18] MEDS ORDERED: LEVALBUTEROL (NEB) 1.25 MG/0.5 ML AMP HHN PRN (21:00)
[2018-02-18 22:44] VITALS: PULSE 102
[2018-02-19 02:00] VITALS: BP 140/75; PULSE 104; RESP 20
[2018-02-19] MEDS: LEVALBUTEROL (NEB) 1.25 MG/0.5 ML AMP HHN SCH ×6 (02:11→21:34)
[2018-02-19] MEDS: INSULIN ASPART [NOVOLOG] 3 ML PEN SC SCH ×5 (02:47→21:06)
[2018-02-19] MEDS: GUAIFENESIN/DM 5ML CUP PO PRN ×2 (02:48→23:28)
[2018-02-19] MEDS: HEPARIN 5,000 UNIT/1 ML VIAL SC SCH ×2 (08:25→21:07)
[2018-02-19] MEDS: POLYETHYLENE GLYCOL 17 GM PACKET PO SCH (08:25)
[2018-02-19] MEDS: DOCUSATE SODIUM 100 MG CAP PO SCH ×2 (08:26→21:12)
--- NOTE | 2018-02-19 08:33 | NUR ---
191 Pt received aaox4. Pt oriented to night coordinator nurse and reminded of [facility] safety protocols including an active bed alarm and hourly rounding. Pt verbalized understanding. 1952 RN notified of T 101.9 & pulse rate of 118. Cooling measures activated. 2014 Tylenol administered for fever. Blood sugar 396. Novolog coverage administered per protocol as well as long acting Lantus. Dr. Eason notified @ 2014; Due to recent increase in Lantus no further orders for coverage given by doctor. Additionally, nurse noted difficulty breathing and shortness of breath, and intermittent coughing upon assessment. Upon questioning, pt verbalized having chest tightness and nonproductive cough. Breath sounds diminished throughout. Dr. Eason notified increased pulse rate, elevated temperature, and difficulty breathing sp02 96% on RA @ 2014 orders received for xopenex Q4 PRN and stat chest Xray. 2241 Rt assessed pt. Xopenex order edited to scheduled Q4 as per order. 02 2L via N/C prn ordered. 0 Pt reports chest tightness relief. Incentive spirometer given to pt and educated on how and when to use it. Achieved 2500 on meter. 0200 No BM since 02/13 colace prn and dulcolax prn administered pt educated on purpose. Dr. Eason made aware. Ordered recieved for 200mg colace BID and miralax 17gm once daily. 0230 Blood sugar 320, Dr Eason made aware orders given to administer 6 units novolog now. Administered novolog and robitussin for cough. 0400 Pt stable denies pain at this time nursing will continue to monitor. 0700 No further changes throughout the night. Nursing will endorse to day shift for continued monitoring and to ensure continuity of care. 0700 No significant changes throughout the night. Nursing will endorse to night coordinator for continued monitoring and to ensure continuity of care.
[2018-02-19] MEDS: COLLAGENASE 5 GM (UD JAR) TOP SCH ×2 (08:36→09:00)
--- NOTE | 2018-02-19 08:42 | PN ---
Date/Time of Note Date/Time of Note DATE: 02/19/18 TIME: 08:42 Assessment/Plan VTE Prophylaxis Risk score (from Ns)>0 risk: 6 SCD applied (from Ns): Yes Pharmacological prophylaxis: LMWH Lines/Catheters IV Catheter Type (from Nrs): Peripheral IV Urinary Cath still in place: No Assessment/Plan Assessment/Plan 1. Left lower extremity cellulitis - Continue current antibiotics and supportive care. Still with warmth but no new rash or lesion appreciated 2. Left great toe metatarsal wound s/p debridement 02/17 - Podiatry on board and appreciate consultation. Continue offloading left foot while in bed. - Cultures noted and awaiting sensitivities. Discussed with ID plan of care and may need short course of antibiotics after discharge. Will discuss with podia try - Xray results noted 3. Diabetes Mellitus - A1 noted - Continued on Lantus 60 units which is his home dose - Unsure names of 3 PO diabetic medications that he is on at home - ISS and accuchecks 4. ALESSANDRO on CKD- resolving - will avoid nephrotoxic agents and monitor renal function - Renal US negative for chronic disease or obstruction 5. Disposition - Patient febrile last night and will need to remain afebrile for 24 hours prior to discharge - Awaiting final culture results and sensitivities Result Diagram: 02/19/18 0609 02/19/18 0609 Results 24hrs Laboratory Tests Test 02/18/18 12:55 02/18/18 17:26 02/18/18 20:09 02/19/18 02:27 Bedside Glucose 341 H 313 H 396 H 320 H Test 02/19/18 06:09 02/19/18 07:57 White Blood 12.9 #H Count Red Blood Count 3.37 L Hemoglobin 10.4 L Hematocrit 30.6 L Mean Corpuscular 90.8 Volume Mean Corpuscular 30.9 Hemoglobin Mean Corpuscular 34.0 Hemoglobin Jenniffer nt Red Cell 12.5 Distribution Width Platelet Count 326 Mean Platelet 9.8 Volume Immature 0.500 H Granulocytes % Neutrophils % 80.9 H Lymphocytes % 9.8 L Monocytes % 6.3 Eosinophils % 2.3 Basophils % 0.2 Nucleated Red 0.0 Blood Cells % Immature 0.070 H Granulocytes # Neutrophils # 10.4 H Lymphocytes # 1.3 Monocytes # 0.8 Eosinophils # 0.3 Basophils # 0.0 Nucleated Red 0.0 Blood Cells # Sodium Level 139 Potassium Level 3.8 Chloride Level 111 H Carbon Dioxide 13 L Level Anion Gap 15 H Blood Urea 27 H Nitrogen Creatinine 1.17 Glucose Level 327 H Calcium Level 8.4 Phosphorus Level 2.6 Magnesium Level 1.7 Albumin 2.9 L Bedside Glucose 294 H Subjective 24 Hr Interval Summary Free Text/Dictation Patient states he's feeling better and denies any new issues. States he takes 3 medications at home for his diabetes in addition to Lantus 60units at night but unsure names. No acute overnight events. Exam/Review of Systems Vital Signs Vitals Vital Signs Date Temp Pulse Resp B/P (MAP) Pulse Ox O2 O2 Flow FiO2 Time Delivery Rate 02/19/18 102 20 100 Nasal 2.0 05:27 Cannula 02/19/18 98.5 140/75 02:00 (96) 02/18/18 21 22:56 Intake and Output 02/18/18 02/18/18 02/19/18 1515:00 23:00 07:00 IntakeIntake Total 1160 ml 500 ml 480 ml OutputOutput Total 300 ml 1345 ml 1600 ml BalanceBalance 860 ml -845 ml -1120 ml Exam General: No acute distress. awake and answering questions appropriately Neck: Supple Lungs: Clear to auscultation bilaterally no crackles rales or wheezing Heart: Normal S1-S2, Regular rhythm and rate. No murmur, S3, or S4 Abdomen: Soft , nontender, nondistended , bowel sounds are present. No guarding no rebound tenderness Extremities: warmth left leg below knee. L ankle to foot wrapped in kerlix with no discharge or drainage appreciated Medications Medications Current Medications IV Flush (NS 3 ml) 3 ml PER PROTOCOL IV ; Start 02/16/18 at 22:30 Ondansetron HCl (Zofran Inj) 4 mg Q6H PRN IV NAUSEA AND/OR VOMITING; Start 02/16/18 at 22:30 Acetaminophen (Tylenol Tab) 650 mg Q6H PRN PO PAIN LEVEL 1-3 OR FEVER Last administered on 02/18/18at 20:06; Admin Dose 650 MG; Start 02/16/18 at 22:30 Acetaminophen/ Hydrocodone Bitart ([place] (5/325)) 1 tab Q6H PRN PO MODERATE PAIN LEVEL 4-6 Last administered on 02/16/18at 22:49; Admin Dose 1 TAB; Start 02/16/18 at 22:30 Docusate Sodium (Colace) 100 mg Q12H PRN PO CONSTIPATION Last administered on 02/19/18at 02:22; Admin Dose 100 MG; Start 02/16/18 at 22:30 Bisacodyl (Dulcolax) 5 mg DAILY PRN PO CONSTIPATION Last administered on at 02:23; Admin Dose 5 MG; Start 02/16/18 at 22:30 Vancomycin HCl (Vanco Iv Per Pharmacy) VANCOMYCIN PER PHARMACY PER PROTOCOL XX ; Start 02/16/18 at 22:30 Insulin Aspart (Novolog Insulin Pen) NOVOLOG *MILD* ALGORITHM WITH MEALS BEDTIME SC Last administered on 02/19/18at 08:22; Admin Dose 4 UNIT; Start 02/17/18 at 08:00 Miscellaneous Information 1 ea NOTE XX ; Start 02/16/18 at 22:30 Glucose (Glutose) 15 gm Q15M PRN PO DECREASED GLUCOSE; Start 02/16/18 at 22:30 Glucose (Glutose) 22.5 gm Q15M PRN PO DECREASED GLUCOSE; Start 02/16/18 at 22:30 Dextrose (D50w Syringe) 25 ml Q15M PRN IV DECREASED GLUCOSE; Start 02/16/18 at 22:30 Dextrose (D50w Syringe) 50 ml Q15M PRN IV DECREASED GLUCOSE; Start 02/16/18 at 22:30 Glucagon (Glucagen) 1 mg Q15M PRN IM DECREASED GLUCOSE; Start 02/16/18 at 22:30 Glucose (Glutose) 15 gm Q15M PRN BUCCAL DECREASED GLUCOSE; Start 02/16/18 at 22:30 Miscellaneous Information (Pending Santyl Order For Wound Care) This patient zimmerman... PRN PRN XX Stage 3/4 wound ; Start 02/17/18 at 04:30 Collagenase (Santyl) 1 applic DAILY TOP Last administered on 02/19/18at 08:36; Admin Dose 1 APPLIC; Start 02/17/18 at 09:00 Collagenase (Santyl) 1 applic PRN PRN TOP WHEN SOILED; Start 02/17/18 at 05:00 Heparin Sodium (Porcine) (Heparin (5000 Units/1ml)) 5,000 unit Q12 SC Last administered on 02/19/18 08:25; Admin Dose 5,000 UNIT; Start 02/17/18 at 21:00 Sodium Hypochlorite (Dakin'S (Dilute 140)) 1 applic DAILY IRR Last administered on 02/18/18 11:11; Admin Dose 1 APPLIC; Start 02/18/18 at 09:00 Vancomycin HCl 250 ml @ 125 mls/hr Q12H IVPB Last administered on 02/18/18 22:52; Admin Dose 125 MLS/HR; Start 02/18/18 at 11:00 Guaifenesin/ Dextromethorphan (Robitussin Dm Liquid Cup) 10 ml Q4H PRN PO cough Last administered on 02/19/18 02:48; Admin Dose 10 ML; Start 02/18/18 at 12:00 Insulin Glargine (Lantus) 40 units QHS SC Last administered on 02/18/18 20:16; Admin Dose 40 UNITS; Start 02/18/18 at 21:00 Levofloxacin/ Dextrose 150 ml @ 100 mls/hr Q48H IVPB ; Start 02/20/18 at 09:00 Levalbuterol (Xopenex Neb) 1.25 mg Q4H RESP THERAPY HHN Last administered on 02/19/18 05:24; Admin Dose 1.25 MG; Start 02/19/18 at 01:00 Docusate Sodium (Colace) 200 mg BID PO Last administered on 02/19/18 08:26; Admin Dose 200 MG; Start 02/19/18 at 09:00 Polyethylene Glycol (Miralax) 17 gm DAILY PO Last administered on 02/19/18 08:25; Admin Dose 17 GM; Start 02/19/18 at 09:00 KATIE RUTLEDGE MD Feb 19, 2018 08:42
[2018-02-19 08:47] VITALS: BP 135/76; PULSE 105; RESP 18
[2018-02-19] MEDS: SODIUM HYPOCHLORITE (1/40) 1 APPLIC BTL IRR SCH (10:23)
[2018-02-19] MEDS ORDERED: LEVOFLOXACIN 750MG/D5W (PMX) 150 ML IVPB SCH ×2 (11:00→13:00)
[2018-02-19] MEDS: VANCOMYCIN 1 GM 250 ML IVPB SCH (11:51)
--- NOTE | 2018-02-19 12:14 | NUR ---
PT Evaluation note: S: HPI per MD note:57 y/o diabetic M patient presents to the floor with left foot ulceration which has been present for over a month but has worsened in the past 6 days. Patient had attempted to manage it himself but noticed it was not improving. He noticed increased swelling, redness, and drainage. Patient relates the wound caused by ill fitting shoes. Patient denies f/c/n/v no chest pain or shortness of breath. O: PREC: WBAT LLE, fall prec. PLOF: Patient was independent in all ADL and ambulation without AD, lives alone in apt unit, 1st floor with no steps to enter, pt doesn't owned any DME, no family members/friends to assist pt at home when needed. order received for PT consult, Cleared by RN in [facility] to proceed, Pt agreeable to participate, minor c/o L foot pain only with weight bearing CLOF: Patient educ that he can do heel weight bearing LLE if unable to tolerate weight on whole foot. Patient SBA for bed mobility, min on transfers and ambulation using FWW, only tolerated about 20 feet gait distance limited by pain. Steady balance with walker. Cleared to ambulate with nursing to restroom using FWW and with assist for balance and safety. A: Patient ruthie benefit from HHPT f/u with HH aide/support VERSUS no further therapy needed upon DC - pending progress, will update as pt progresses. P: Cont PT and progress as able.
--- NOTE | 2018-02-19 12:40 | NUR ---
Accucheck done- 475, patient denied experiencing any s/s of hyperglycemia. Accucheck reassessed, 415. reactor technician available at the bedside to draw scheduled labs ordered and stat glucose ordered to be done at that time. Dr Rodriguez informed and as per Md she will order an additional 20units of Lantus to be given now. Primary RN Anastasia informed. Patient left resting comfortably in bed, call wright within reach.
[2018-02-19] MEDS ORDERED: INSULIN GLARGINE [LANTus] (100 UNITS/ML) SYG SC STA (13:02)
[2018-02-19] MEDS: ACETAMINOPHEN 325 MG TAB PO PRN ×2 (14:27→23:22)
--- NOTE | 2018-02-19 14:57 | CONS ---
Date/Time of Note Date/Time of Note DATE: 02/19/18 TIME: 14:56 Assessment/Plan Assessment/Plan Hospital Course Patient is awake in no distress, T-max 101.9 WBC 12.9 platelets 326 neutrophils 80.9. ESR 74 BUN 27 creatinine 1.17 Microbiology: Blood culture negative MRSA swab negative, wound culture growing multiple bacteria, final sensitivities pending Antimicrobials: Levofloxacin vancomycin Physical examination this is a obese well-developed middle-aged man who is awake in no distress. Head atraumatic normocephalic. Neck is supple. Chest rise symmetrical breath sounds clear. Heart: S1-S2. Abdomen obese soft bowel sounds present. Extremities with left foot swelling, dressing intact Assessment: 1. Systemic inflammatory response syndrome 2. Left foot cellulitis, status post I&D 3. Uncontrolled diabetes 4. Obesity 5. Allergy: Rocephin Plan: We will change levofloxacin to meropenem, continue vancomycin, await for final cultures and follow podiatry recommendations. Anticipate treating patients with IV antibiotics after discharge for at least [address] [place] Result Diagram: 02/19/18 0609 02/19/18 1225 Results 24hrs Laboratory Tests Test 02/18/18 17:26 02/18/18 20:09 02/19/18 02:27 02/19/18 06:09 Bedside Glucose 313 H 396 H 320 H White Blood 12.9 #H Count Red Blood Count 3.37 L Hemoglobin 10.4 L Hematocrit 30.6 L Mean Corpuscular 90.8 Volume Mean Corpuscular 30.9 Hemoglobin Mean Corpuscular 34.0 Hemoglobin Jenniffer nt Red Cell 12.5 Distribution Width Platelet Count 326 Mean Platelet 9.8 Volume Immature 0.500 H Granulocytes % Neutrophils % 80.9 H Lymphocytes % 9.8 L Monocytes % 6.3 Eosinophils % 2.3 Basophils % 0.2 Nucleated Red 0.0 Blood Cells % Immature 0.070 H Granulocytes # Neutrophils # 10.4 H Lymphocytes # 1.3 Monocytes # 0.8 Eosinophils # 0.3 Basophils # 0.0 Nucleated Red 0.0 Blood Cells # Sodium Level 139 Potassium Level 3.8 Chloride Level 111 H Carbon Dioxide 13 L Level Anion Gap 15 H Blood Urea 27 H Nitrogen Creatinine 1.17 Glucose Level 327 H Calcium Level 8.4 Phosphorus Level 2.6 Magnesium Level 1.7 Albumin 2.9 L Test 02/19/18 07:57 12/27/18 12:17 02/19/18 12:24 02/19/18 12:25 Bedside Glucose 294 H 415 *H Erythrocyte 74 H Sedimentation Rate Lactic Acid 1.2 Level C-Reactive 22.0 H Protein Glucose Level 443 *H Test 02/19/18 13:55 Bedside Glucose 474 *H Consultation Date/Type/Reason Admit Date/Time Feb 16, 2018 at 20:38 Initial Consult Date Type of Consult ID Exam/Review of Systems Vital Signs Vitals Vital Signs Date Temp Pulse Resp B/P (MAP) Pulse Ox O2 O2 Flow FiO2 Time Delivery Rate 02/19/18 2.0 14:49 02/19/18 101.1 14:27 02/19/18 96 18 98 21 13:50 02/19/18 135/76 08:47 (95) 02/19/18 Nasal 05:27 Cannula Intake and Output 02/18/18 02/18/18 02/19/18 1515:00 23:00 07:00 IntakeIntake Total 1160 ml 500 ml 480 ml OutputOutput Total 300 ml 1345 ml 1600 ml BalanceBalance 860 ml -845 ml -1120 ml Medications Medications Current Medications IV Flush (NS 3 ml) 3 ml PER PROTOCOL IV ; Start 02/16/18 at 22:30 Ondansetron HCl (Zofran Inj) 4 mg Q6H PRN IV NAUSEA AND/OR VOMITING; Start 02/16/18 at 22:30 Acetaminophen (Tylenol Tab) 650 mg Q6H PRN PO PAIN LEVEL 1-3 OR FEVER Last administered on 02/19/18at 14:27; Admin Dose 650 MG; Start 02/16/18 at 22:30 Acetaminophen/ Hydrocodone Bitart ([place] (5/325)) 1 tab Q6H PRN PO MODERATE PAIN LEVEL 4-6 Last administered on 02/16/18at 22:49; Admin Dose 1 TAB; Start 02/16/18 at 22:30 Docusate Sodium (Colace) 100 mg Q12H PRN PO CONSTIPATION Last administered on 02/19/18at 02:22; Admin Dose 100 MG; Start 02/16/18 at 22:30 Bisacodyl (Dulcolax) 5 mg DAILY PRN PO CONSTIPATION Last administered on 02/19/18at 02:23; Admin Dose 5 MG; Start 02/16/18 at 22:30 Vancomycin HCl (Vanco Iv Per Pharmacy) VANCOMYCIN PER PHARMACY PER PROTOCOL XX ; Start 02/16/18 at 22:30 Insulin Aspart (Novolog Insulin Pen) NOVOLOG *MILD* ALGORITHM WITH MEALS BEDTIME SC Last administered on 02/19/18at 12:47; Admin Dose 7 UNIT; Start 02/17/18 at 08:00 Miscellaneous Information 1 ea NOTE XX ; Start 02/16/18 at 22:30 Glucose (Glutose) 15 gm Q15M PRN PO DECREASED GLUCOSE; Start 02/16/18 at 22:30 Glucose (Glutose) 22.5 gm Q15M PRN PO DECREASED GLUCOSE; Start 02/16/18 at 22:30 Dextrose (D50w Syringe) 25 ml Q15M PRN IV DECREASED GLUCOSE; Start 02/16/18 at 22:30 Dextrose (D50w Syringe) 50 ml Q15M PRN IV DECREASED GLUCOSE; Start 02/16/18 at 22:30 Glucagon (Glucagen) 1 mg Q15M PRN IM DECREASED GLUCOSE; Start 02/16/18 at 22:30 Glucose (Glutose) 15 gm Q15M PRN BUCCAL DECREASED GLUCOSE; Start 02/16/18 at 22:30 Miscellaneous Information (Pending Santyl Order For Wound Care) This patient zimmerman... PRN PRN XX Stage 3/4 wound ; Start 02/17/18 at 04:30 Collagenase (Santyl) 1 applic DAILY TOP Last administered on 02/18/18at 09:05; Admin Dose 1 APPLIC; Start 02/17/18 at 09:00 Collagenase (Santyl) 1 applic PRN PRN TOP WHEN SOILED; Start 02/17/18 at 05:00 Heparin Sodium (Porcine) (Heparin (5000 Units/1ml)) 5,000 unit Q12 SC Last administered on 02/19/18at 08:25; Admin Dose 5,000 UNIT; Start 02/17/18 at 21:00 Sodium Hypochlorite (Dakin'S (Dilute )) 1 applic DAILY IRR Last administered on 02/19/18at 10:23; Admin Dose 1 APPLIC; Start 02/18/18 at 09:00 Vancomycin HCl 250 ml @ 125 mls/hr Q12H IVPB Last administered on 02/19/18at 11:51; Admin Dose 125 MLS/HR; Start 02/18/18 at 11:00 Guaifenesin/ Dextromethorphan (Robitussin Dm Liquid Cup) 10 ml Q4H PRN PO cough Last administered on 02/19/18at 02:48; Admin Dose 10 ML; Start 02/18/18 at 12:00 Levalbuterol (Xopenex Neb) 1.25 mg Q4H RESP THERAPY HHN Last administered on 02/19/18at 13:50; Admin Dose 1.25 MG; Start 02/19/18 at 01:00 Docusate Sodium (Colace) 200 mg BID PO Last administered on 02/19/18at 08:26; Admin Dose 200 MG; Start 02/19/18 at 09:00 Polyethylene Glycol (Miralax) 17 gm DAILY PO Last administered on 02/19/18at 08:25; Admin Dose 17 GM; Start 02/19/18 at 09:00 Insulin Glargine (Lantus) 60 units QHS SC ; Start 02/19/18 at 21:00 Levofloxacin/ Dextrose 150 ml @ 100 mls/hr Q24H IVPB Last administered on 02/19/18at 14:28; Admin Dose 100 MLS/HR; Start 02/19/18 at 13:00 Miscellaneous Information (*Rx Drug Level Order Reminder*) VANCOMYCIN TROUGH AT 2200 ONCE ONCE XX ; Start 02/19/18 at 22:00; Stop 02/19/18 at 22:01 KITTY DUMONT NP Feb 19, 2018 14:57
[2018-02-19 15:02] VITALS: BP 136/65; PULSE 117; RESP 18
--- NOTE | 2018-02-19 15:18 | NUR ---
Pharmacy called to verify the documented allergy of Ceftriaxone, I spoke with the patient and according to him he has no allergies and does not know why that was placed. I spoke with pharmacy and allergy removed as per pt and pharmacy request.
[2018-02-19] MEDS: MEROPENEM 1 GM/50ML(PMX) 50 ML IVPB SCH ×2 (16:12→21:14)
[2018-02-19] MEDS ORDERED: LACTULOSE 30ML CUP PO ONE (16:30)
--- NOTE | 2018-02-19 18:44 | NUR ---
EOSS: Tylenol administered for temp 101.1. Temp decreased to 100.6 after 30 mins. Blood cultures and chest xray performed on 02/18. MD Rodriguez notified of temp. Urine culture ordered. Blood sugar >400 at lunch and at dinner. Blood sugars were verified with a second accucheck and by lab draw. Dr. Rodriguez notified both times, lantus 20 units ordered after lunch, no new orders after high BG at dinner time. Pt did not require Nasal cannula during shift, saturations were >97% on RA. Dressing change was done per MD order. Pt tolerated well. Pt educated on diabetic foot ulcers and proper care of feet with neuropathy. Allevyn applied to both heels. Pt encouraged to float heels, sit higher in bed so feet aren't touching bottom bed rail, and turn q2. Pt verbalized understanding of the rationale. Pt had a bowel movement. Pt walked in room with PT. pt cleared to walk to bathroom w/ staff member and walker. Pt continued to receive IV abx. Bed alarm on, call light within reach, pt denies further needs at this time.
[2018-02-19] MEDS ORDERED: LACTULOSE 30ML CUP PO PRN (19:00)
[2018-02-19 19:34] VITALS: BP 122/58; PULSE 114; RESP 18
[2018-02-19] MEDS: INSULIN GLARGINE [LANTus] (100 UNITS/ML) SYG SC SCH (21:05)
--- NOTE | 2018-02-19 21:37 | PN ---
Date/Time of Note Date/Time of Note DATE: 02/19/18 TIME: 21:34 Assessment/Plan VTE Prophylaxis Risk score (from Nsg)>0 risk: 4 Pharmacological prophylaxis: heparin Lines/Catheters IV Catheter Type (from Nrsg): Peripheral IV Urinary Cath still in place: No Assessment/Plan Hospital Course 57 y/o diabetic M patient presents to the floor with left foot ulceration which has been present for over a month but has worsened in the past 6 days. Patient had attempted to manage it himself but noticed it was not improving. He noticed increased swelling, redness, and drainage. Patient relates the wound caused by ill fitting shoes. Patient denies f/c/n/v no chest pain or shortness of breath. Assessment/Plan 1) Left foot diabetic ulcer 2) Cellulitis 3) abscess L foot 4) DM2 with peripheral neuropathy 5) LLE edema 6) Obesity Plan: Further incision and driange performed at medial left foot wound site and dorsal lateral L hallux site. 3-4mL of purulence was expressed. Copious dakins and betadine irrigation was used at the incision sites. Betadine 1/4inch packing placed into the wound sites. Recommend TID dressing changes. Wound cultures showing mixed gram neg organisms and enterococcus. Continue with IV abx per recommendations. Recommend offloading with pillows. CT scan ordered of left lower extremity. Concern for cyanotic appearance of left hallux. Repeat non-invasive arterial exams showed normal triphasic flow throughout the left lower extremity arterial system. The left posterior tibial artery brachial index is 1.2 and left dorsalis pedis ankle brachial index is 1.2. Medical decisions, treatment, and plan coordinated with Dr. Perez. Result Diagram: 02/19/18 0609 02/19/18 1811 Results 24hrs Laboratory Tests Test 02/19/18 02:27 02/19/18 06:09 02/19/18 07:57 02/19/18 12:17 Bedside Glucose 320 H 294 H 415 *H White Blood 12.9 #H Count Red Blood Count 3.37 L Hemoglobin 10.4 L Hematocrit 30.6 L Mean Corpuscular 90.8 Volume Mean Corpuscular 30.9 Hemoglobin Mean Corpuscular 34.0 Hemoglobin Jenniffer nt Red Cell 12.5 Distribution Width Platelet Count 326 Mean Platelet 9.8 Volume Immature 0.500 H Granulocytes % Neutrophils % 80.9 H Lymphocytes % 9.8 L Monocytes % 6.3 Eosinophils % 2.3 Basophils % 0.2 Nucleated Red 0.0 Blood Cells % Immature 0.070 H Granulocytes # Neutrophils # 10.4 H Lymphocytes # 1.3 Monocytes # 0.8 Eosinophils # 0.3 Basophils # 0.0 Nucleated Red 0.0 Blood Cells # Sodium Level 139 Potassium Level 3.8 Chloride Level 111 H Carbon Dioxide 13 L Level Anion Gap 15 H Blood Urea 27 H Nitrogen Creatinine 1.17 Glucose Level 327 H Calcium Level 8.4 Phosphorus Level 2.6 Magnesium Level 1.7 Albumin 2.9 L Test 02/19/18 12:24 02/19/18 12:25 02/19/18 13:55 02/19/18 17:27 Erythrocyte 74 H Sedimentation Rate Lactic Acid 1.2 Level C-Reactive 22.0 H Protein Glucose Level 443 *H Bedside Glucose 474 *H 422 *H Test 02/19/18 17:34 02/19/18 18:11 02/19/18 21:00 Bedside Glucose 411 *H 340 H Glucose Level 411 *H Subjective 24 Hr Interval Summary Free Text/Dictation Patient noted to spike fevers and there is elevated white count. Exam/Review of Systems Vital Signs Vitals Vital Signs Date Temp Pulse Resp B/P (MAP) Pulse Ox O2 O2 Flow FiO2 Time Delivery Rate 02/19/18 99.1 114 18 122/58 95 19:34 (79) 02/19/18 21 17:48 02/19/18 Room Air 15:02 02/19/18 2.0 14:49 Intake and Output 02/18/18 02/18/18 02/19/18 1515:00 23:00 07:00 IntakeIntake Total 1160 ml 500 ml 480 ml OutputOutput Total 300 ml 1345 ml 1600 ml BalanceBalance 860 ml -845 ml -1120 ml Exam Epidermalysis noted to the left medial forefoot region Medial ankle and leg erythema noted with increased warmth DP/PT pulses palpable Absent protective sensations 2+ pitting edema to left lower extremity Left 1st MPJ ulceration with necrotic wound base and maceration and hyperkeratotic tissue noted. Measuring 2 x 2 x 1.5cm. There is purulence expressed at the ulcer site. The wound probes to joint capsule and laterally. There is surrounding erythema. There is cyanosis noted to the L hallux Left medial 2nd digit site appreciated a partial thickness wound measuring 0.4 x 0.4 x 0.1 with surrounding HPK and maceration appreciated. 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 MRI L foot IMPRESSION: 1. Focal soft tissue ulceration along the plantar medial aspect of the hallux sesamoid articulation with associated soft tissue sinus tract that terminates and fluid at the base of the medial sesamoid. There is no MR evidence of organizing soft tissue abscess. The fluid collection abuts the plantar medial cortex of the medial sesamoid however there is no MR evidence of osteomyelitis. 2. Near circumferential significant soft tissue inflammation about the forefoot predominating on the plantar medial aspect of the level of the first MTP joint. 3. Mild marrow edema signal of the medial head of the first metatarsal. Findings are likely related to degenerative changes and are associated with mild thickening of the medial capsule ligament. Non-invasive arterial studies IMPRESSION: 1. No sonographic evidence for hemodynamically significant arterial stenosis or occlusion in the bilateral lower extremities. 2. Left dorsalis pedis artery was not evaluated due to overlying bandage. 3. Normal bilateral ankle brachial indices. There is normal triphasic flow throughout the left lower extremity arterial system. The left posterior tibial artery brachial index is 1.2 and left dorsalis pedis ankle brachial index is 1.2. Foot X-ray IMPRESSION: 1. Soft tissue injury overlying the first metatarsal phalangeal joint medially. 2. Otherwise unremarkable images of the left foot. Medications Medications Current Medications IV Flush (NS 3 ml) 3 ml PER PROTOCOL IV ; Start 02/16/18 at 22:30 Ondansetron HCl (Zofran Inj) 4 mg Q6H PRN IV NAUSEA AND/OR VOMITING; Start 02/16/18 at 22:30 Acetaminophen (Tylenol Tab) 650 mg Q6H PRN PO PAIN LEVEL 1-3 OR FEVER Last administered on 02/19/18at 14:27; Admin Dose 650 MG; Start 02/16/18 at 22:30 Acetaminophen/ Hydrocodone Bitart ([place] (5/325)) 1 tab Q6H PRN PO MODERATE PAIN LEVEL 4-6 Last administered on 02/16/18at 22:49; Admin Dose 1 TAB; Start 02/16/18 at 22:30 Docusate Sodium (Colace) 100 mg Q12H PRN PO CONSTIPATION Last administered on 02/19/18at 02:22; Admin Dose 100 MG; Start 02/16/18 at 22:30 Bisacodyl (Dulcolax) 5 mg DAILY PRN PO CONSTIPATION Last administered on 02/19/18at 02:23; Admin Dose 5 MG; Start 02/16/18 at 22:30 Vancomycin HCl (Vanco Iv Per Pharmacy) VANCOMYCIN PER PHARMACY PER PROTOCOL XX ; Start 02/16/18 at 22:30 Insulin Aspart (Novolog Insulin Pen) NOVOLOG *MILD* ALGORITHM WITH MEALS BEDTIME SC Last administered on 02/19/18at 21:06; Admin Dose 4 UNIT; Start at 08:00 Miscellaneous Information 1 ea NOTE XX ; Start 02/16/18 at 22:30 Glucose (Glutose) 15 gm Q15M PRN PO DECREASED GLUCOSE; Start 02/16/18 at 22:30 Glucose (Glutose) 22.5 gm Q15M PRN PO DECREASED GLUCOSE; Start 02/16/18 at 22:30 Dextrose (D50w Syringe) 25 ml Q15M PRN IV DECREASED GLUCOSE; Start 02/16/18 at 22:30 Dextrose (D50w Syringe) 50 ml Q15M PRN IV DECREASED GLUCOSE; Start 02/16/18 at 22:30 Glucagon (Glucagen) 1 mg Q15M PRN IM DECREASED GLUCOSE; Start 02/16/18 at 22:3 0 Glucose (Glutose) 15 gm Q15M PRN BUCCAL DECREASED GLUCOSE; Start 02/16/18 at 22:30 Miscellaneous Information (Pending Santyl Order For Wound Care) This patient zimmerman... PRN PRN XX Stage 3/4 wound ; Start 02/17/18 at 04:30 Collagenase (Santyl) 1 applic DAILY TOP Last administered on 02/18/18at 09:05; Admin Dose 1 APPLIC; Start 02/17/18 at 09:00 Collagenase (Santyl) 1 applic PRN PRN TOP WHEN SOILED; Start 02/17/18 at 05:00 Heparin Sodium (Porcine) (Heparin (5000 Units/1ml)) 5,000 unit Q12 SC Last administered on 02/19/18at 21:07; Admin Dose 5,000 UNIT; Start 02/17/18 at 21:00 Sodium Hypochlorite (Dakin'S (Dilute )) 1 applic DAILY IRR Last administered on 02/19/18 10:23; Admin Dose 1 APPLIC; Start 02/18/18 at 09:00 Vancomycin HCl 250 ml @ 125 mls/hr Q12H IVPB Last administered on 02/19/18 11:51; Admin Dose 125 MLS/HR; Start 02/18/18 at 11:00 Guaifenesin/ Dextromethorphan (Robitussin Dm Liquid Cup) 10 ml Q4H PRN PO cough Last administered on 02/19/18 02:48; Admin Dose 10 ML; Start 02/18/18 at 12:00 Levalbuterol (Xopenex Neb) 1.25 mg Q4H RESP THERAPY HHN Last administered on 02/19/18 17:48; Admin Dose 1.25 MG; Start 02/19/18 at 01:00 Docusate Sodium (Colace) 200 mg BID PO Last administered on 02/19/18 21:12; Admin Dose 200 MG; Start 02/19/18 at 09:00 Polyethylene Glycol (Miralax) 17 gm DAILY PO Last administered on 02/19/18 08:25; Admin Dose 17 GM; Start 02/19/18 at 09:00 Insulin Glargine (Lantus) 60 units QHS SC Last administered on 02/19/18 21:05; Admin Dose 60 UNITS; Start 02/19/18 at 21:00 Miscellaneous Information (*Rx Drug Level Order Reminder*) VANCOMYCIN TROUGH AT 2200 ONCE ONCE XX ; Start 02/19/18 at 22:00; Stop 02/19/18 at 22:01 Meropenem/Sodium Chloride 50 ml @ 100 mls/hr Q12 IVPB Last administered on 02/19/18 21:14; Admin Dose 100 MLS/HR; Start 02/19/18 at 15:00 Lactulose (Enulose) 20 gm ONCE PRN PO constipation; Start 02/19/18 at 19:00; Stop 02/20/18 at 18:59 NIMISHA HENNING DPM Feb 19, 2018 21:36
[2018-02-19] MEDS: VANCOMYCIN 1.25 GM in SOD CHLORIDE 0.9% 250 ML IVPB SCH (23:35)
[2018-02-20] VITALS (19 sets, daily range): BP systolic 118–160; BP diastolic 60–130; PULSE 86–102; RESP 18–25
[2018-02-20] MEDS: LEVALBUTEROL (NEB) 1.25 MG/0.5 ML AMP HHN SCH ×6 (01:22→20:07)
--- NOTE | 2018-02-20 03:39 | NUR ---
Patient's BG 316. Dr. Eason notified, ordered to give 2 units of novolog x1.
[2018-02-20] MEDS ORDERED: INSULIN ASPART [NOVOLOG] 3 ML PEN SC ONE (04:00)
--- NOTE | 2018-02-20 06:37 | NUR ---
1915 Pt received aaox4. 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 Pt verbalized understanding and denies further needs at this time. Nursing will continue to monitor. 1999 Dr. Boston arrived to debride L foot wound. As per Dr. Boston wound dressing order <Irrigate with dakins, pack with 1/4 idoform, cover with betadine 4x4 dressings and kerlix to be change 3 TIMES DAILY starting on 02/20/[address] scan L Leg ordered. Dr Boston aware of elevated WBC, elevated heart rate, and temperature x3 days. Pt denies pain, states he "can't really feel debridement." 2100 Scheduled medications administered w/o difficulty including 60 units Lantus and 4 units coverage as per sliding scale protocol for blood sugar of 340 Dr kristel, no further orders. 2300 T 100.6 tylenol and cooling measures administered. Robitussin administered for cough as per pt request. 0[address] Eason ordered 1x order 2 units novolog for BS 216. Administered. 0400 [address] complete 0600 No significant change, nursing will continue to monitor and endorse to morning shift including temperature monitoring to ensure pt safety and continuity of care.
[2018-02-20] MEDS: INSULIN ASPART [NOVOLOG] 3 ML PEN SC SCH ×4 (08:00→22:03)
--- NOTE | 2018-02-20 08:00 | NUR ---
DR HENNING ROUNDED AND HAD EXPLAINED TO PATIENT PLAN FOR LEFT FOOT WOUND I&D TODAY.MAINTAINED ON NPO
[2018-02-20] MEDS ORDERED: LEVOFLOXACIN 750MG/D5W (PMX) 150 ML IVPB SCH (09:00)
[2018-02-20] MEDS: POLYETHYLENE GLYCOL 17 GM PACKET PO SCH (09:00)
[2018-02-20] MEDS: COLLAGENASE 5 GM (UD JAR) TOP SCH (09:00)
[2018-02-20] MEDS: DOCUSATE SODIUM 100 MG CAP PO SCH ×2 (09:00→21:45)
[2018-02-20] MEDS: HEPARIN 5,000 UNIT/1 ML VIAL SC SCH ×2 (09:00→22:02)
[2018-02-20] MEDS: MEROPENEM 1 GM/50ML(PMX) 50 ML IVPB SCH ×2 (09:04→21:45)
[2018-02-20] MEDS: SODIUM HYPOCHLORITE (1/40) 1 APPLIC BTL IRR SCH (09:08)
[2018-02-20] MEDS: ACETAMINOPHEN 325 MG TAB PO PRN (09:29)
--- NOTE | 2018-02-20 09:30 | NUR ---
DRESSING CHANGE DONE ON LEFT FOOT WOUND .VERIFIED WITH DR HENNING GRADER MEAT THAT HE SCHEDULED THE PATIENT FOR I& D OF LEFT FOOT TODAY AFTER 5 PM AND TO HOLD HEPARIN DUE AT 0900.PATIENT IS AWARE .
--- NOTE | 2018-02-20 09:42 | NUR ---
PT NOTE Therapy day number 2 Subjective Denies pain Pain Scale FACES Pain Intensity 0 (0-10) Patient Stated Goal for Pain Relief 0 (0-10) Pain Level Comment no c/o pain pre-tx Pre Treatment Vital Signs Stable Yes Exercise Assessment Label Bilat Lower Extremity Exercise Type Active ROM Additional Exercise Comments BLE heel slides, ankle PF/DF/sup/pron, Hip ER/IR, bed mobility tr with BR Exercise Start Time 09:42 Exercise End Time 10:12 Total Exercise Time 30 min (8-127) Post Treatment Pain Intensity 0 0-10 Total Treament Time 30 min (8-127) Total Minutes 30 Total Units 2 PT Technical Record Comment PT NOTE S: Pt agreeable to limited PT in bed only with max encouragement, stating he is fatigued 2/2 NPO. Cleared for PT per FERNANDA Morris. O: Pt received semifowler in bed, alert and appropriate. Performed thera ex and bed mobility per tech record above with ModA, VC/TC for hand placement and sequencing. Pt positioned for comfort post-tc with call light and needs in reach, bed alarm armed, in no apparent acute distress. A: Pt nathan limited tx fairly, limited by fatigue P: Cont POC
[2018-02-20] MEDS: VANCOMYCIN 1.25 GM in SOD CHLORIDE 0.9% 250 ML IVPB SCH ×2 (11:09→23:18)
--- NOTE | 2018-02-20 12:24 | NUR ---
Vancomycin per Rx Vancomycin trough = 9.6 SCr 1.17 Change Vancomycin to 1.25 gm IV q12h
--- NOTE | 2018-02-20 13:05 | NUR ---
SS Note: Consult SW received order to meet with pt. Per order, pt left truck parked at [facility]. He is worried of the cost he is incurring everyday. Also patients states is in [place] but does not want her to know he is in the hospital. SW met with pt at bedside to provide support, assess above mentioned concerns, and link pt to appropriate resources as needed. The patient is a 57-year-old male who was transferred from [facility]. Pt awake, alert, and oriented x4. Pt very pleasant and appeared to be coping appropriately at the time of interview. Pt reported he is but . Pt has 6 adult children. Pt reported he is having financial issues with his family and has not spoken to them for about 1 year. Pt stated he does not want family including his to know he is hospitalized. Pt does not wish to assign anyone as a surrogate decision maker/spokesperson at this time. Pt confirmed address on facesheet and stated he lives with a friend. 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 Normally, pt drives and is independent with all ADL's. Denied use of DME. Pt has [employer] insurance and stated he has a PCP. Pt requesting assistance with transportation back to [place]. From a social work standpoint pt can be provided a taxi voucher to facility where he was transferred from Address: [address] [place] [id number]. Taxi voucher to be provided at d/c. SW contacted [facility] and spoke with their security regarding assistance with parking. Security instructed for pt to press lost ticket on machine and will only cost him $10. SW relayed information to pt and he verbalized understanding. SW assessed for other needs, which were denied at this time. SW remains available for f/u as needed.
--- NOTE | 2018-02-20 15:03 | CONS ---
Date/Time of Note Date/Time of Note DATE: 02/20/18 TIME: 15:02 Assessment/Plan Assessment/Plan Hospital Course Patient is still with low-grade fevers. T-max 99.9 this morning he is sleeping in no distress WBC 12.9 platelets 310 neutrophils 80.8 BUN 23 creatinine 1.17 Microbiology: Wound culture growing multiple bacteria, final sensitivities pending Antimicrobials: Merrem vancomycin Physical examination this is a obese well-developed middle-aged man who is awake in no distress. Head atraumatic normocephalic. Neck is supple. Chest rise symmetrical breath sounds clear. Heart: S1-S2. Abdomen obese soft bowel sounds present. Extremities with left foot swelling, dressing intact Assessment: 1. Systemic inflammatory response syndrome 2. Left foot cellulitis/abscess, status post I&D 3. Uncontrolled diabetes 4. Obesity 5. Allergy: Rocephin Plan: Remains stable, continue antibiotics, await for final cultures, wound care per podiatry recommendations. Anticipate treating patients with IV antibiotics after discharge for at least [address] Boston Result Diagram: 02/20/18 0500 02/20/18 0500 Results 24hrs Laboratory Tests Test 02/19/18 17:27 02/19/18 17:34 02/19/18 18:11 02/19/18 21:00 Bedside Glucose 422 *H 411 *H 340 H Glucose Level 411 *H Test 02/19/18 22:10 02/20/18 02:25 02/20/18 03:36 02/20/18 05:00 Lactic Acid 1.0 Level Vancomycin Level 9.6 L Trough Bedside Glucose 300 H 316 H White Blood 12.9 H Count Red Blood Count 3.19 L Hemoglobin 9.8 L Hematocrit 28.6 L Mean Corpuscular 89.7 Volume Mean Corpuscular 30.7 Hemoglobin Mean Corpuscular 34.3 Hemoglobin Jenniffer nt Red Cell 12.2 Distribution Width Platelet Count 310 Mean Platelet 9.5 Volume Immature 0.700 H Granulocytes % Neutrophils % 80.8 H Lymphocytes % 9.0 L Monocytes % 7.2 Eosinophils % 2.2 Basophils % 0.1 Nucleated Red 0.0 Blood Cells % Immature 0.090 H Granulocytes # Neutrophils # 10.5 H Lymphocytes # 1.2 Monocytes # 0.9 Eosinophils # 0.3 Basophils # 0.0 Nucleated Red 0.0 Blood Cells # Erythrocyte 102 H Sedimentation Rate Sodium Level 137 Potassium Level 3.6 Chloride Level 111 H Carbon Dioxide 16 L Level Anion Gap 10 # Blood Urea 23 H Nitrogen Creatinine 1.17 Glucose Level 276 #H Calcium Level 8.8 Phosphorus Level 2.5 Magnesium Level 1.8 C-Reactive 23.6 H Protein Albumin 2.8 L Test 02/20/18 08:08 02/20/18 11:47 Bedside Glucose 264 H 247 H Consultation Date/Type/Reason Admit Date/Time Feb 16, 2018 at 20:38 Initial Consult Date Type of Consult ID Exam/Review of Systems Vital Signs Vitals Vital Signs Date Temp Pulse Resp B/P (MAP) Pulse Ox O2 O2 Flow FiO2 Time Delivery Rate 02/20/18 99.3 96 18 137/75 95 Room Air 14:15 (95) 02/20/18 21 08:03 02/19/18 2.0 21:00 Intake and Output 02/19/18 02/19/18 02/20/18 1414:59 22:59 06:59 IntakeIntake Total 970 ml 740 ml OutputOutput Total 850 ml 150 ml BalanceBalance 120 ml 590 ml Medications Medications Current Medications IV Flush (NS 3 ml) 3 ml PER PROTOCOL IV ; Start 02/16/18 at 22:30 Ondansetron HCl (Zofran Inj) 4 mg Q6H PRN IV NAUSEA AND/OR VOMITING; Start 02/16/18 at 22:30 Acetaminophen (Tylenol Tab) 650 mg Q6H PRN PO PAIN LEVEL 1-3 OR FEVER Last administered on 02/20/18at 09:29; Admin Dose 650 MG; Start 02/16/18 at 22:30 Acetaminophen/ Hydrocodone Bitart ([place] (5/325)) 1 tab Q6H PRN PO MODERATE PAIN LEVEL 4-6 Last administered on 02/16/18at 22:49; Admin Dose 1 TAB; Start 02/16/18 at 22:30 Docusate Sodium (Colace) 100 mg Q12H PRN PO CONSTIPATION Last administered on 02/19/18at 02:22; Admin Dose 100 MG; Start 02/16/18 at 22:30 Bisacodyl (Dulcolax) 5 mg DAILY PRN PO CONSTIPATION Last administered on 02/19/18at 02:23; Admin Dose 5 MG; Start 02/16/18 at 22:30 Vancomycin HCl (Vanco Iv Per Pharmacy) VANCOMYCIN PER PHARMACY PER PROTOCOL XX ; Start 02/16/18 at 22:30 Insulin Aspart (Novolog Insulin Pen) NOVOLOG *MILD* ALGORITHM WITH MEALS BEDTIME SC Last administered on 02/20/18at 11:49; Admin Dose 3 UNIT; Start 02/17/18 at 08:00 Miscellaneous Information 1 ea NOTE XX ; Start 02/16/18 at 22:30 Glucose (Glutose) 15 gm Q15M PRN PO DECREASED GLUCOSE; Start 02/16/18 at 22:30 Glucose (Glutose) 22.5 gm Q15M PRN PO DECREASED GLUCOSE; Start 02/16/18 at 22:30 Dextrose (D50w Syringe) 25 ml Q15M PRN IV DECREASED GLUCOSE; Start 02/16/18 at 22:30 Dextrose (D50w Syringe) 50 ml Q15M PRN IV DECREASED GLUCOSE; Start 02/16/18 at 22:30 Glucagon (Glucagen) 1 mg Q15M PRN IM DECREASED GLUCOSE; Start 02/16/18 at 22:30 Glucose (Glutose) 15 gm Q15M PRN BUCCAL DECREASED GLUCOSE; Start 02/16/18 at 22:30 Miscellaneous Information (Pending Santyl Order For Wound Care) This patient zimmerman... PRN PRN XX Stage 3/4 wound ; Start 02/17/18 at 04:30 Collagenase (Santyl) 1 applic DAILY TOP Last administered on 02/18/18at 09:05; Admin Dose 1 APPLIC; Start 02/17/18 at 09:00 Collagenase (Santyl) 1 applic PRN PRN TOP WHEN SOILED; Start 02/17/18 at 05:00 Heparin Sodium (Porcine) (Heparin (5000 Units/1ml)) 5,000 unit Q12 SC Last administered on 02/19/18at 21:07; Admin Dose 5,000 UNIT; Start 02/17/18 at 21:00 Sodium Hypochlorite (Dakin'S (Dilute 1/40)) 1 applic DAILY IRR Last administered on 02/20/18at 09:08; Admin Dose 1 APPLIC; Start 02/18/18 at 09:00 Guaifenesin/ Dextromethorphan (Robitussin Dm Liquid Cup) 10 ml Q4H PRN PO cough Last administered on 02/19/18at 23:28; Admin Dose 10 ML; Start 02/18/18 at 12:00 Levalbuterol (Xopenex Neb) 1.25 mg Q4H RESP THERAPY HHN Last administered on 02/20/18 08:03; Admin Dose 1.25 MG; Start 02/19/18 at 01:00 Docusate Sodium (Colace) 200 mg BID PO Last administered on 02/19/18at 21:12; Admin Dose 200 MG; Start 02/19/18 at 09:00 Polyethylene Glycol (Miralax) 17 gm DAILY PO Last administered on 02/19/18 08:25; Admin Dose 17 GM; Start 02/19/18 at 09:00 Insulin Glargine (Lantus) 60 units QHS SC Last administered on 02/19/18at 21:05; Admin Dose 60 UNITS; Start 02/19/18 at 21:00 Meropenem/Sodium Chloride 50 ml @ 100 mls/hr Q12 IVPB Last administered on 09:04; Admin Dose 100 MLS/HR; Start 02/19/18 at 15:00 Lactulose (Enulose) 20 gm ONCE PRN PO constipation; Start 02/19/18 at 19:00; Stop 02/20/18 at 18:59 Vancomycin HCl 1.25 gm/Sodium Chloride 250 ml @ 83.333 mls/ hr Q12H IVPB Last administered on 02/20/18 11:09; Admin Dose 83.333 MLS/HR; Start 02/19/18 at 23:00 KITTY DUMONT NP Feb 20, 2018 15:03
--- NOTE | 2018-02-20 15:29 | NUR ---
Nutrition Notes Open wound - Recommend vitamin C 500mg daily, zinc 220mg daily X 10days, MVI daily. Will be sending Seth BID. Thank you!
[2018-02-20] MEDS: ASCORBIC ACID 500 MG TAB PO SCH (16:00)
[2018-02-20] MEDS: MULTIVITAMINS THERAPEUTIC TAB PO SCH (16:00)
[2018-02-20] MEDS: ZINC SULFATE 220 MG CAP PO SCH (16:00)
--- NOTE | 2018-02-20 16:13 | PN ---
Date/Time of Note Date/Time of Note DATE: 02/20/18 TIME: 16:04 Assessment/Plan VTE Prophylaxis Risk score (from Ns)>0 risk: 3 SCD applied (from Ns): Yes Pharmacological prophylaxis: LMWH Lines/Catheters IV Catheter Type (from Nrs): Saline Lock Urinary Cath still in place: No Assessment/Plan Assessment/Plan 1. Left great toe metatarsal wound s/p debridement 02/17 - Podiatry on board and appreciate consultation. Continue offloading left foot while in bed. - Cultures noted. ID on board and appreciate recommendations. Will need to continue on 2 weeks of IV antibiotics after discharge. - Xray results noted 2. Diabetes Mellitus - A1 noted - Continued on Lantus 60 units which is his home dose - on 3 PO medications at home as well - ISS and accuchecks 3. ALESSANDRO- resolved - Renal function appears at baseline - will avoid nephrotoxic agents - Renal US negative for chronic disease or obstruction 4. Sepsis secondary diabetic foot ulcer - Patient last fever was 2100 last night. Will need to remain afebrile for at least 24 hours prior to discharge - ID on board and appreciate recommendations - WBC still elevated 5. Disposition - Patient febrile again last night with Tmax 100.6 and will need to remain afebrile for 24 hours prior to discharge - Will consult CM for assistance with home IV antibiotic arrangements Result Diagram: 02/20/18 0500 02/20/18 0500 Results 24hrs Laboratory Tests Test 02/19/18 17:27 02/19/18 17:34 02/19/18 18:11 02/19/18 21:00 Bedside Glucose 422 *H 411 *H 340 H Glucose Level 411 *H Test 02/19/18 22:10 02/20/18 02:25 02/20/18 03:36 02/20/18 05:00 Lactic Acid 1.0 Level Vancomycin Level 9.6 L Trough Bedside Glucose 300 H 316 H White Blood 12.9 H Count Red Blood Count 3.19 L Hemoglobin 9.8 L Hematocrit 28.6 L Mean Corpuscular 89.7 Volume Mean Corpuscular 30.7 Hemoglobin Mean Corpuscular 34.3 Hemoglobin Jenniffer nt Red Cell 12.2 Distribution Width Platelet Count 310 Mean Platelet 9.5 Volume Immature 0.700 H Granulocytes % Neutrophils % 80.8 H Lymphocytes % 9.0 L Monocytes % 7.2 Eosinophils % 2.2 Basophils % 0.1 Nucleated Red 0.0 Blood Cells % Immature 0.090 H Granulocytes # Neutrophils # 10.5 H Lymphocytes # 1.2 Monocytes # 0.9 Eosinophils # 0.3 Basophils # 0.0 Nucleated Red 0.0 Blood Cells # Erythrocyte 102 H Sedimentation Rate Sodium Level 137 Potassium Level 3.6 Chloride Level 111 H Carbon Dioxide 16 L Level Anion Gap 10 # Blood Urea 23 H Nitrogen Creatinine 1.17 Glucose Level 276 #H Calcium Level 8.8 Phosphorus Level 2.5 Magnesium Level 1.8 C-Reactive 23.6 H Protein Albumin 2.8 L Test 02/20/18 08:08 02/20/18 11:47 Bedside Glucose 264 H 247 H Subjective 24 Hr Interval Summary Free Text/Dictation Patient states he's feeling okay and denies any fevers this am. No acute overnight events. Exam/Review of Systems Vital Signs Vitals Vital Signs Date Temp Pulse Resp B/P (MAP) Pulse Ox O2 O2 Flow FiO2 Time Delivery Rate 02/20/18 99.3 96 18 137/75 95 Room Air 14:15 (95) 02/20/18 21 08:03 02/19/18 2.0 21:00 Intake and Output 02/19/18 02/19/18 02/20/18 1515:00 23:00 07:00 IntakeIntake Total 970 ml 740 ml OutputOutput Total 850 ml 150 ml BalanceBalance 120 ml 590 ml Exam General: No acute distress. awake and answering questions appropriately Neck: Supple Lungs: Clear to auscultation bilaterally no crackles rales or wheezing Heart: Normal S1-S2, Regular rhythm and rate. No murmur, S3, or S4 Abdomen: Soft , nontender, nondistended , bowel sounds are present. No guarding no rebound tenderness Extremities: left foot with serosanguineous drainage on dressing, mild swelling of toes. Medications Medications Current Medications IV Flush (NS 3 ml) 3 ml PER PROTOCOL IV ; Start 02/16/18 at 22:30 Ondansetron HCl (Zofran Inj) 4 mg Q6H PRN IV NAUSEA AND/OR VOMITING; Start 02/16/18 at 22:30 Acetaminophen (Tylenol Tab) 650 mg Q6H PRN PO PAIN LEVEL 1-3 OR FEVER Last administered on 02/20/18at 09:29; Admin Dose 650 MG; Start 02/16/18 at 22:30 Acetaminophen/ Hydrocodone Bitart ([place] (5/325)) 1 tab Q6H PRN PO MODERATE PAIN LEVEL 4-6 Last administered on 02/16/18at 22:49; Admin Dose 1 TAB; Start 02/16/18 at 22:30 Docusate Sodium (Colace) 100 mg Q12H PRN PO CONSTIPATION Last administered on 02/19/18at 02:22; Admin Dose 100 MG; Start 02/16/18 at 22:30 Bisacodyl (Dulcolax) 5 mg DAILY PRN PO CONSTIPATION Last administered on 02/19/18at 02:23; Admin Dose 5 MG; Start 02/16/18 at 22:30 Vancomycin HCl (Vanco Iv Per Pharmacy) VANCOMYCIN PER PHARMACY PER PROTOCOL XX ; Start 02/16/18 at 22:30 Insulin Aspart (Novolog Insulin Pen) NOVOLOG *MILD* ALGORITHM WITH MEALS BEDTIM E SC Last administered on 02/20/18at 11:49; Admin Dose 3 UNIT; Start 02/17/18 at 08:00 Miscellaneous Information 1 ea NOTE XX ; Start 02/16/18 at 22:30 Glucose (Glutose) 15 gm Q15M PRN PO DECREASED GLUCOSE; Start 02/16/18 at 22:30 Glucose (Glutose) 22.5 gm Q15M PRN PO DECREASED GLUCOSE; Start 02/16/18 at 22:30 Dextrose (D50w Syringe) 25 ml Q15M PRN IV DECREASED GLUCOSE; Start 02/16/18 at 22:30 Dextrose (D50w Syringe) 50 ml Q15M PRN IV DECREASED GLUCOSE; Start 02/16/18 at 22:30 Glucagon (Glucagen) 1 mg Q15M PRN IM DECREASED GLUCOSE; Start 02/16/18 at 22:30 Glucose (Glutose) 15 gm Q15M PRN BUCCAL DECREASED GLUCOSE; Start 02/16/18 at 22:30 Miscellaneous Information (Pending Santyl Order For Wound Care) This patient zimmerman... PRN PRN XX Stage 3/4 wound ; Start 02/17/18 at 04:30 Collagenase (Santyl) 1 applic DAILY TOP Last administered on 02/18/18at 09:05; Admin Dose 1 APPLIC; Start 02/17/18 at 09:00 Collagenase (Santyl) 1 applic PRN PRN TOP WHEN SOILED; Start 02/17/18 at 05:00 Heparin Sodium (Porcine) (Heparin (5000 Units/1ml)) 5,000 unit Q12 SC Last administered on 02/19/18 21:07; Admin Dose 5,000 UNIT; Start 02/17/18 at 21:00 Sodium Hypochlorite (Dakin'S (Dilute 40)) 1 applic DAILY IRR Last administered on 02/20/18 09:08; Admin Dose 1 APPLIC; Start 02/18/18 at 09:00 Guaifenesin/ Dextromethorphan (Robitussin Dm Liquid Cup) 10 ml Q4H PRN PO cough Last administered on 02/19/18 23:28; Admin Dose 10 ML; Start 02/18/18 at 12:00 Levalbuterol (Xopenex Neb) 1.25 mg Q4H RESP THERAPY HHN Last administered on 02/20/18 08:03; Admin Dose 1.25 MG; Start 02/19/18 at 01:00 Docusate Sodium (Colace) 200 mg BID PO Last administered on 02/19/18 21:12; Admin Dose 200 MG; Start 02/19/18 at 09:00 Polyethylene Glycol (Miralax) 17 gm DAILY PO Last administered on 02/19/18 08:25; Admin Dose 17 GM; Start 02/19/18 at 09:00 Insulin Glargine (Lantus) 60 units QHS SC Last administered on 02/19/18 21:05; Admin Dose 60 UNITS; Start 02/19/18 at 21:00 Meropenem/Sodium Chloride 50 ml @ 100 mls/hr Q12 IVPB Last administered on 02/20/18 09:04; Admin Dose 100 MLS/HR; Start 02/19/18 at 15:00 Lactulose (Enulose) 20 gm ONCE PRN PO constipation; Start 02/19/18 at 19:00; Stop 02/20/18 at 18:59 Vancomycin HCl 1.25 gm/Sodium Chloride 250 ml @ 83.333 mls/ hr Q12H IVPB Last administered on 02/20/18 11:09; Admin Dose 83.333 MLS/HR; Start 02/19/18 at 23:00 KATIE RUTLEDGE MD Feb 20, 2018 16:13
--- NOTE | 2018-02-20 16:42 | PREAC ---
Date/Time of Note Date/Time of Note DATE: 02/20/18 TIME: 16:42 Anesthesia Eval and Record Evaluation Time Pre-Procedure Interview DATE: 02/20/18 TIME: 16:42 Age 57 Sex male NPO: 8 hrs Preoperative diagnosis Left great toe metatarsal wound Planned procedure left foot wound debridement Past Medical History Past Medical History: Includes Endo: Diabetes Renal: CKD GI: Obesity Heme: Anemia Surgery & Anesthesia Issues No known issue Meds Anticoagulation: No Beta Celeste within 24 hr: No Reason Beta Celeste not given: Pt. not on B-Celeste Current Medications IV Flush (NS 3 ml) 3 ml PER PROTOCOL IV ; Start 02/16/18 at 22:30 Ondansetron HCl (Zofran Inj) 4 mg Q6H PRN IV NAUSEA AND/OR VOMITING; Start 02/16/18 at 22:30 Acetaminophen (Tylenol Tab) 650 mg Q6H PRN PO PAIN LEVEL 1-3 OR FEVER Last administered on 02/20/18at 09:29; Admin Dose 650 MG; Start 02/16/18 at 22:30 Acetaminophen/ Hydrocodone Bitart ([place] (5/325)) 1 tab Q6H PRN PO MODERATE PAIN LEVEL 4-6 Last administered on 02/16/18at 22:49; Admin Dose 1 TAB; Start 02/16/18 at 22:30 Docusate Sodium (Colace) 100 mg Q12H PRN PO CONSTIPATION Last administered on 02/19/18at 02:22; Admin Dose 100 MG; Start 02/16/18 at 22:30 Bisacodyl (Dulcolax) 5 mg DAILY PRN PO CONSTIPATION Last administered on 02/19/18at 02:23; Admin Dose 5 MG; Start 02/16/18 at 22:30 Vancomycin HCl (Vanco Iv Per Pharmacy) VANCOMYCIN PER PHARMACY PER PROTOCOL XX ; Start 02/16/18 at 22:30 Insulin Aspart (Novolog Insulin Pen) NOVOLOG *MILD* ALGORITHM WITH MEALS BEDTIME SC Last administered on 02/20/18at 11:49; Admin Dose 3 UNIT; Start 02/17/18 at 08:00 Miscellaneous Information 1 ea NOTE XX ; Start 02/16/18 at 22:30 Glucose (Glutose) 15 gm Q15M PRN PO DECREASED GLUCOSE; Start 02/16/18 at 22:30 Glucose (Glutose) 22.5 gm Q15M PRN PO DECREASED GLUCOSE; Start 02/16/18 at 22:30 Dextrose (D50w Syringe) 25 ml Q15M PRN IV DECREASED GLUCOSE; Start 02/16/18 at 22:30 Dextrose (D50w Syringe) 50 ml Q15M PRN IV DECREASED GLUCOSE; Start 02/16/18 at 22:30 Glucagon (Glucagen) 1 mg Q15M PRN IM DECREASED GLUCOSE; Start 02/16/18 at 22:30 Glucose (Glutose) 15 gm Q15M PRN BUCCAL DECREASED GLUCOSE; Start 02/16/18 at 22:30 Miscellaneous Information (Pending Santyl Order For Wound Care) This patient zimmerman. .. PRN PRN XX Stage 3/4 wound ; Start 02/17/18 at 04:30 Collagenase (Santyl) 1 applic DAILY TOP Last administered on 02/18/18at 09:05; Admin Dose 1 APPLIC; Start 02/17/18 at 09:00 Collagenase (Santyl) 1 applic PRN PRN TOP WHEN SOILED; Start 02/17/18 at 05:00 Heparin Sodium (Porcine) (Heparin (5000 Units/1ml)) 5,000 unit Q12 SC Last administered on 02/19/18at 21:07; Admin Dose 5,000 UNIT; Start 02/17/18 at 21:00 Sodium Hypochlorite (Dakin'S (Dilute 1/40)) 1 applic DAILY IRR Last adminis tered on 02/20/18at 09:08; Admin Dose 1 APPLIC; Start 02/18/18 at 09:00 Guaifenesin/ Dextromethorphan (Robitussin Dm Liquid Cup) 10 ml Q4H PRN PO cough Last administered on 02/19/18at 23:28; Admin Dose 10 ML; Start 02/18/18 at 12:00 Levalbuterol (Xopenex Neb) 1.25 mg Q4H RESP THERAPY HHN Last administered on 02/20/18at 08:03; Admin Dose 1.25 MG; Start 02/19/18 at 01:00 Docusate Sodium (Colace) 200 mg BID PO Last administered on 02/19/18at 21:12; Admin Dose 200 MG; Start 02/19/18 at 09:00 Polyethylene Glycol (Miralax) 17 gm DAILY PO Last administered on 02/19/18at 08:25; Admin Dose 17 GM; Start 02/19/18 at 09:00 Insulin Glargine (Lantus) 60 units QHS SC Last administered on 02/19/18at 21:05; Admin Dose 60 UNITS; Start 02/19/18 at 21:00 Meropenem/Sodium Chloride 50 ml @ 100 mls/hr Q12 IVPB Last administered on 02/20/18at 09:04; Admin Dose 100 MLS/HR; Start 02/19/18 at 15:00 Lactulose (Enulose) 20 gm ONCE PRN PO constipation; Start 02/19/18 at 19:00; Stop 02/20/18 at 18:59 Vancomycin HCl 1.25 gm/Sodium Chloride 250 ml @ 83.333 mls/ hr Q12H IVPB Last administered on 02/20/18at 11:09; Admin Dose 83.333 MLS/HR; Start 02/19/18 at 23:00 Ascorbic Acid (Vitamin C) 500 mg DAILY PO ; Start 02/20/18 at 16:00 Zinc Sulfate (Zinc Sulfate) 220 mg DAILY PO ; Start 02/20/18 at 16:00; Stop 03/03/18 at 15:59 Multivitamins Therapeutic (Theragran) 1 tab DAILY PO ; Start 02/20/18 at 16:00 Meds reviewed: Yes Allergies Coded Allergies: No Known Allergy (Unverified , 02/19/18) Allergies Reviewed: Yes Labs/Studies Labs Reviewed: Reviewed by anesthesiologist Result Diagram: 02/20/18 0500 02/20/18 0500 Laboratory Tests 02/20/18 05:00 test: N/A Pre-procedure Exam Last vitals Vital Signs Date Temp Pulse Resp B/P (MAP) Pulse Ox O2 O2 Flow FiO2 Time Delivery Rate 02/20/18 99.3 96 18 137/75 95 Room Air 14:15 (95) 02/20/18 21 08:03 02/19/18 2.0 21:00 Airway: Adequate mouth opening, Adequate thyromental dist Mallampati: Mallampati II Teeth: Normal Lung: Normal Heart: Normal ASA Physical Status ASA physical status: 3 Emergency: None Planned Anesthetic General/MAC: Mask (vs. ), LMA Planned Pain Management Parenteral pain med, Local by surgeon Pre-operative Attestations Prior to commencing anesthesia and surgery, the patient was re-evaluated, there was verification of: *The patient's identity *The results of appropriate recent lab work and preoperative vital signs *The above evaluation not changing prior to induction *Anesthetic plan, risk benefits, alternative and complications discussed with patient/family; questions answered; patient/family understands, accepts and wishes to proceed. JENNIFER BROUSSARD MD Feb 20, 2018 16:42
--- NOTE | 2018-02-20 16:55 | PN ---
Date/Time of Note Date/Time of Note DATE: 02/20/18 TIME: 16:55 Assessment/Plan VTE Prophylaxis Risk score (from Nsg)>0 risk: 3 SCD applied (from Nsg): Yes Pharmacological prophylaxis: heparin Lines/Catheters IV Catheter Type (from Nrsg): Saline Lock Urinary Cath still in place: No Assessment/Plan Hospital Course 57 y/o diabetic M patient presents to the floor with left foot ulceration which has been present for over a month but has worsened in the past 6 days. Patient had attempted to manage it himself but noticed it was not improving. He noticed increased swelling, redness, and drainage. Patient relates the wound caused by ill fitting shoes. Patient denies f/c/n/v no chest pain or shortness of breath. Assessment/Plan 1) Left foot diabetic ulcer 2) Cellulitis 3) abscess L foot 4) DM2 with peripheral neuropathy 5) LLE edema 6) Obesity Plan: OR debridement scheduled today. Copious dakins and betadine irrigation was used at the incision sites. Betadine 1/4inch packing placed into the wound sites. Recommend BID dressing changes. Wound cultures showing mixed gram neg organisms and enterococcus. Continue with IV abx per recommendations. Recommend offloading with pillows. CT scan ordered of left lower extremity. Concern for cyanotic appearance of left hallux. Repeat non-invasive arterial exams showed normal triphasic flow throughout the left lower extremity arterial system. The left posterior tibial artery brachial index is 1.2 and left dorsalis pedis ankle brachial index is 1.2. Medical decisions, treatment, and plan coordinated with Dr. Perez. Result Diagram: 02/20/18 0500 02/20/18 0500 Results 24hrs Laboratory Tests Test 02/19/18 17:27 02/19/18 17:34 02/19/18 18:11 02/19/18 21:00 Bedside Glucose 422 *H 411 *H 340 H Glucose Level 411 *H Test 02/19/18 22:10 02/20/18 02:25 02/20/18 03:36 02/20/18 05:00 Lactic Acid 1.0 Level Vancomycin Level 9.6 L Trough Bedside Glucose 300 H 316 H White Blood 12.9 H Count Red Blood Count 3.19 L Hemoglobin 9.8 L Hematocrit 28.6 L Mean Corpuscular 89.7 Volume Mean Corpuscular 30.7 Hemoglobin Mean Corpuscular 34.3 Hemoglobin Jenniffer nt Red Cell 12.2 Distribution Width Platelet Count 310 Mean Platelet 9.5 Volume Immature 0.700 H Granulocytes % Neutrophils % 80.8 H Lymphocytes % 9.0 L Monocytes % 7.2 Eosinophils % 2.2 Basophils % 0.1 Nucleated Red 0.0 Blood Cells % Immature 0.090 H Granulocytes # Neutrophils # 10.5 H Lymphocytes # 1.2 Monocytes # 0.9 Eosinophils # 0.3 Basophils # 0.0 Nucleated Red 0.0 Blood Cells # Erythrocyte 102 H Sedimentation Rate Sodium Level 137 Potassium Level 3.6 Chloride Level 111 H Carbon Dioxide 16 L Level Anion Gap 10 # Blood Urea 23 H Nitrogen Creatinine 1.17 Glucose Level 276 #H Calcium Level 8.8 Phosphorus Level 2.5 Magnesium Level 1.8 C-Reactive 23.6 H Protein Albumin 2.8 L Test 02/20/18 08:08 02/20/18 11:47 Bedside Glucose 264 H 247 H Subjective 24 Hr Interval Summary Free Text/Dictation No acute events overnight. Exam/Review of Systems Vital Signs Vitals Vital Signs Date Temp Pulse Resp B/P (MAP) Pulse Ox O2 O2 Flow FiO2 Time Delivery Rate 02/20/18 99.3 96 18 137/75 95 Room Air 14:15 (95) 02/20/18 21 08:03 02/19/18 2.0 21:00 Intake and Output 02/19/18 02/19/18 02/20/18 1515:00 23:00 07:00 IntakeIntake Total 970 ml 740 ml OutputOutput Total 850 ml 150 ml BalanceBalance 120 ml 590 ml Exam Epidermalysis noted to the left medial forefoot region Medial ankle and leg erythema noted with increased warmth DP/PT pulses palpable Absent protective sensations 2+ pitting edema to left lower extremity Left 1st MPJ ulceration with necrotic wound base and maceration and hyperkeratotic tissue noted. Measuring 2 x 2 x 1.5cm. There is purulence expressed at the ulcer site. The wound probes to joint capsule and laterally. There is surrounding erythema. There is cyanosis noted to the L hallux Left medial 2nd digit site appreciated a partial thickness wound measuring 0.4 x 0.4 x 0.1 with surrounding HPK and maceration appreciated. 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 MRI L foot IMPRESSION: 1. Focal soft tissue ulceration along the plantar medial aspect of the hallux sesamoid articulation with associated soft tissue sinus tract that terminates and fluid at the base of the medial sesamoid. There is no MR evidence of organizing soft tissue abscess. The fluid collection abuts the plantar medial cortex of the medial sesamoid however there is no MR evidence of osteomyelitis. 2. Near circumferential significant soft tissue inflammation about the forefoot predominating on the plantar medial aspect of the level of the first MTP joint. 3. Mild marrow edema signal of the medial head of the first metatarsal. Findings are likely related to degenerative changes and are associated with mild thickening of the medial capsule ligament. Non-invasive arterial studies IMPRESSION: 1. No sonographic evidence for hemodynamically significant arterial stenosis or occlusion in the bilateral lower extremities. 2. Left dorsalis pedis artery was not evaluated due to overlying bandage. 3. Normal bilateral ankle brachial indices. There is normal triphasic flow throughout the left lower extremity arterial system. The left posterior tibial artery brachial index is 1.2 and left dorsalis pedis ankle brachial index is 1.2. Foot X-ray IMPRESSION: 1. Soft tissue injury overlying the first metatarsal phalangeal joint medially. 2. Otherwise unremarkable images of the left foot. CT IMPRESSION: Redemonstration of left foot cellulitis with more focal soft tissue thickening noted adjacent to the first digit. No discrete collections are identified. Soft tissue gas and postsurgical packing material is noted surrounding the left first digit. Suggestion of subtle sclerosis involving the adjacent sesamoid bone medially raising the possibility for new osteitis/osteomyelitis and should be correlated with repeat MRI as warranted. Incidental note is also made of a subacute appearing fracture through the posterior medial tibial plateau. Findings are superimposed on the background of tricompartmental joint osteoarthrosis. Medications Medications Current Medications IV Flush (NS 3 ml) 3 ml PER PROTOCOL IV ; Start 02/16/18 at 22:30 Ondansetron HCl (Zofran Inj) 4 mg Q6H PRN IV NAUSEA AND/OR VOMITING; Start 02/16/18 at 22:30 Acetaminophen (Tylenol Tab) 650 mg Q6H PRN PO PAIN LEVEL 1-3 OR FEVER Last administered on 02/20/18at 09:29; Admin Dose 650 MG; Start 02/16/18 at 22:30 Acetaminophen/ Hydrocodone Bitart ([place] (5/325)) 1 tab Q6H PRN PO MODERATE PAIN LEVEL 4-6 Last administered on 02/16/18at 22:49; Admin Dose 1 TAB; Start 02/16/18 at 22:30 Docusate Sodium (Colace) 100 mg Q12H PRN PO CONSTIPATION Last administered on 02/19/18at 02:22; Admin Dose 100 MG; Start 02/16/18 at 22:30 Bisacodyl (Dulcolax) 5 mg DAILY PRN PO CONSTIPATION Last administered on 02/19/18at 02:23; Admin Dose 5 MG; Start 02/16/18 at 22:30 Vancomycin HCl (Vanco Iv Per Pharmacy) VANCOMYCIN PER PHARMACY PER PROTOCOL XX ; Start 02/16/18 at 22:30 Insulin Aspart (Novolog Insulin Pen) NOVOLOG *MILD* ALGORITHM WITH MEALS BEDTIME SC Last administered on 02/20/18at 11:49; Admin Dose 3 UNIT; Start 02/17/18 at 08:00 Miscellaneous Information 1 ea NOTE XX ; Start 02/16/18 at 22:30 Glucose (Glutose) 15 gm Q15M PRN PO DECREASED GLUCOSE; Start 02/16/18 at 22:30 Glucose (Glutose) 22.5 gm Q15M PRN PO DECREASED GLUCOSE; Start 02/16/18 at 22:30 Dextrose (D50w Syringe) 25 ml Q15M PRN IV DECREASED GLUCOSE; Start 02/16/18 at 22:30 Dextrose (D50w Syringe) 50 ml Q15M PRN IV DECREASED GLUCOSE; Start 02/16/18 at 22:30 Glucagon (Glucagen) 1 mg Q15M PRN IM DECREASED GLUCOSE; Start 02/16/18 at 22:30 Glucose (Glutose) 15 gm Q15M PRN BUCCAL DECREASED GLUCOSE; Start 02/16/18 at 22:30 Miscellaneous Information (Pending Santyl Order For Wound Care) This patient zimmerman... PRN PRN XX Stage 3/4 wound ; Start 02/17/18 at 04:30 Collagenase (Santyl) 1 applic DAILY TOP Last administered on 02/18/18at 09:05; Admin Dose 1 APPLIC; Start 02/17/18 at 09:00 Collagenase (Santyl) 1 applic PRN PRN TOP WHEN SOILED; Start 02/17/18 at 05:00 Heparin Sodium (Porcine) (Heparin (5000 Units/1ml)) 5,000 unit Q12 SC Last administered on 02/19/18 21:07; Admin Dose 5,000 UNIT; Start 02/17/18 at 21:00 Sodium Hypochlorite (Dakin'S (Dilute )) 1 applic DAILY IRR Last administered on 02/20/18 09:08; Admin Dose 1 APPLIC; Start 02/18/18 at 09:00 Guaifenesin/ Dextromethorphan (Robitussin Dm Liquid Cup) 10 ml Q4H PRN PO cough Last administered on 02/19/18 23:28; Admin Dose 10 ML; Start 02/18/18 at 12:00 Levalbuterol (Xopenex Neb) 1.25 mg Q4H RESP THERAPY HHN Last administered on 02/20/18 08:03; Admin Dose 1.25 MG; Start 02/19/18 at 01:00 Docusate Sodium (Colace) 200 mg BID PO Last administered on 02/19/18 21:12; Admin Dose 200 MG; Start 02/19/18 at 09:00 Polyethylene Glycol (Miralax) 17 gm DAILY PO Last administered on 02/19/18 08:25; Admin Dose 17 GM; Start 02/19/18 at 09:00 Insulin Glargine (Lantus) 60 units QHS SC Last administered on 02/19/18 21: 05; Admin Dose 60 UNITS; Start 02/19/18 at 21:00 Meropenem/Sodium Chloride 50 ml @ 100 mls/hr Q12 IVPB Last administered on 02/20/18at 09:04; Admin Dose 100 MLS/HR; Start 02/19/18 at 15:00 Lactulose (Enulose) 20 gm ONCE PRN PO constipation; Start 02/19/18 at 19:00; Stop 02/20/18 at 18:59 Vancomycin HCl 1.25 gm/Sodium Chloride 250 ml @ 83.333 mls/ hr Q12H IVPB Last administered on 02/20/18 11:09; Admin Dose 83.333 MLS/HR; Start 02/19/18 at 23:00 Ascorbic Acid (Vitamin C) 500 mg DAILY PO ; Start 02/20/18 at 16:00 Zinc Sulfate (Zinc Sulfate) 220 mg DAILY PO ; Start 02/20/18 at 16:00; Stop 03/03/18 at 15:59 Multivitamins Therapeutic (Theragran) 1 tab DAILY PO ; Start 02/20/18 at 16:00 NIMISHA HENNING DPM Feb 20, 2018 16:55
--- NOTE | 2018-02-20 17:06 | NUR ---
PATIENT LEFT TO PREOP.VS RECORDED
[2018-02-20] MEDS ORDERED: BACITRACIN 50000 UNITS INJ ONE (17:11)
[2018-02-20] MEDS ORDERED: POLYMYXIN B 500000 UNIT INJ ONE (17:14)
[2018-02-20] MEDS ORDERED: LIDOCAINE 2% (SDV) 5 ML INJ ONE (17:28)
[2018-02-20] MEDS ORDERED: FENTAnyl 50 MCG/ML VIAL ONE (17:28)
[2018-02-20] MEDS ORDERED: PROPOFOL 20 ML ONE (17:28)
[2018-02-20] MEDS ORDERED: MIDAZOLAM 1 MG/ML 2 ML INJ ONE (17:28)
[2018-02-20] MEDS ORDERED: LIDOCAINE 1% (MPF) 30 ML INJ ONE (17:35)
[2018-02-20] MEDS ORDERED: POLYMYXIN/BACITRACIN 1L IRRIG ONE (17:44)
[2018-02-20] MEDS ORDERED: PROCHLORPERAZINE 10 MG INJ IV PRN (18:00)
[2018-02-20] MEDS ORDERED: DIPHENHYDRAMINE 50 MG INJ IV PRN (18:00)
[2018-02-20] MEDS ORDERED: FENTAnyl 50 MCG/ML VIAL IV PRN (18:00)
[2018-02-20] MEDS ORDERED: ONDANSETRON 4 MG INJ IV PRN (18:00)
[2018-02-20] MEDS ORDERED: HYDROmorphONE 1 MG/5 ML IV SYRINGE IV PRN ×2 (18:00)
[2018-02-20] MEDS ORDERED: MEPERIDINE 25 MG INJ IV PRN (18:00)
--- NOTE | 2018-02-20 18:19 | HPN ---
Date/Time of Note Date/Time of Note DATE: 02/20/18 TIME: 18:19 Interval H&P Admission Note Pt. seen H&P reviewed: No system changes NIMISHA HENNING DPM Feb 20, 2018 18:19
--- NOTE | 2018-02-20 18:21 | NUR ---
PACU PT AWAKE ALERT ROOM AIR NO C/O PAIN OR RESP DISTRESS VS STABLE RT HAND 20 BON IV ACCESS SITE CLEAR LT FOOT DSSG DRY INTACT
--- NOTE | 2018-02-20 18:24 | SIPON ---
Date/Time of Note Date/Time of Note DATE: 02/20/18 TIME: 18:24 Operative Report Preoperative Diagnosis 1) Left foot diabetic ulcer 2) Cellulitis 3) abscess L foot 4) DM2 with peripheral neuropathy 5) LLE edema Postoperative Diagnosis 1) Left foot diabetic ulcer 2) Cellulitis 3) abscess L foot 4) DM2 with peripheral neuropathy 5) LLE edema Operation/Procedure Performed Left foot wound debridement Surgeon see signature line behavioral health assistant none Anesthesia: moderate sedation Estimated blood loss: 0 - 10 ml's Transfusion Required none Specimen left foot wound culture Grafts/Implants none Complications none NIMISHA HENNING DPM Feb 20, 2018 18:24
--- NOTE | 2018-02-20 18:27 | PAC ---
Date/Time of Note Date/Time of Note DATE: 02/20/18 TIME: 18:26 Post-Anesthesia Notes Post-Anesthesia Note Last documented vital signs Vital Signs Date Temp Pulse Resp B/P (MAP) Pulse Ox O2 O2 Flow FiO2 Time Delivery Rate 02/20/18 99.2 18:22 02/20/18 95 18 119/72 97 Room Air 17:05 (88) 02/20/18 21 08:03 02/19/18 2.0 21:00 Activity: WNL Respiratory function: WNL Cardiovascular function: WNL Mental status: Baseline Pain reasonably controlled: Yes Hydration appropriate: Yes Nausea/Vomiting absent: Yes Comments BP: 138/80 HR: 93 RR: 18 T: 99.2 SaO2: 96% JENNIFER GAVIN MD Feb 20, 2018 18:27
--- NOTE | 2018-02-20 18:36 | OPR ---
Date/Time of Note Date/Time of Note DATE: 02/20/18 TIME: 18:36 Operative Report Preoperative Diagnosis 1) Left foot diabetic ulcer 2) Cellulitis 3) abscess L foot 4) DM2 with peripheral neuropathy 5) LLE edema Postoperative Diagnosis 1) Left foot diabetic ulcer 2) Cellulitis 3) abscess L foot 4) DM2 with peripheral neuropathy 5) LLE edema Operation/Procedure Performed Left foot excisional debridement Surgeon see signature line Acute Care Registered Nurse none Anesthesia Type: moderate sedation Estimated Blood Loss: 0 - 10 ml's Transfusion none Specimen left foot wound culture Grafts/Implants none Complications none Indications 57 y/o diabetic male patient with an infected ulcer which was presented to the floors for worsening presentation. Bedsides debridement were performed but no significant improvement. Discussed with the patient that OR excisional debridement and irrigation would be necessary. Patient is amenable to the procedure. All of the patient's questions and concerns were addressed no promises or guarantees were given. Procedure Description Patient was brought into the OR and placed on the OR table in the supine position. The left lower extremity was scrubbed, prepped, and draped in the usual aseptic manner. A formal timeout was conducted. Attention was then directed to the left foot where two previous incision sites were made to address the ulcer site. The medial aspect of the 1st MPJ ulcer incision was extended and the wound was dilated and 2-3mL of purulence was expressed. The ulcer site was 5 x 2 x 2.0cm, excisional debridement of skin/subQ/muscle/tendon/fascia using a pickup and scissor. Necrotic tissue, purulence, and fibrotic tissue was removed. Next attention was directed to the dorsal lateral aspect of the hallux where the previous incision site was extended distally and proximally. The wound site was dilated and excisional debridement of skin/subQ/muscle/tendon/fascia using a pickup and scissor. Necrotic tissue, purulence, and fibrotic tissue was removed. 20cm2 of area was debrided. Approximately total of 2-3ml of purulence was r emoved. Copious pulse irrigation was used with antibiotic infused saline. Wound cultures were obtained. Wound sites were dressed with quarter inch iodoform packing, betadine gauze, kerlix and dry sterile dressings. Patient was transferred to the PACU with vital signs stable and neurovascular status intact. NIMISHA HENNING DPM Feb 20, 2018 18:36
--- NOTE | 2018-02-20 19:08 | NUR ---
IN FROM PACU,FULLY AWAKE,NOTED WITH POST OP DRESSING ON LEFT FOOT CDI . ELEVATED LEFT FOOT WITH PILLOW AND APPLIED WARM BLANKET ON LEFT FOOT .VS CHECKED AND RECORDED
[2018-02-20] MEDS: INSULIN GLARGINE [LANTus] (100 UNITS/ML) SYG SC SCH (22:03)
[2018-02-21] MEDS: LEVALBUTEROL (NEB) 1.25 MG/0.5 ML AMP HHN SCH ×7 (01:00→20:05)
[2018-02-21 02:00] VITALS: BP 124/68; PULSE 106; RESP 17
--- NOTE | 2018-02-21 06:00 | NUR ---
RECEIVED PT S/P OF LEFT FOOT DEBRIDEMENT. VS MONITORED. DENIES PAIN. NO ACUTE DISTRESS NOTED. DINNER GIVEN. BS CHECKED. ALL DUE MEDS GIVEN. NEEDS ATTENDED. KEEP LEFT FOOT ELEVATED ON PILLOW, COVERED WITH WARM BLANKET. DRESSING ON LEFT FOOT IS DRY AND INTACT. PT SLEPT WELL DURING THE SHIFT. HOURLY ROUND MADE. CALL LIGHT AND TABLE ARE WITHIN REACH.
[2018-02-21 07:35] VITALS: BP 114/60; PULSE 91; RESP 16
[2018-02-21] MEDS: INSULIN ASPART [NOVOLOG] 3 ML PEN SC SCH ×5 (07:59→20:35)
[2018-02-21] MEDS: MEROPENEM 1 GM/50ML(PMX) 50 ML IVPB SCH ×2 (08:51→20:40)
[2018-02-21] MEDS: MULTIVITAMINS THERAPEUTIC TAB PO SCH (08:52)
[2018-02-21] MEDS: ASCORBIC ACID 500 MG TAB PO SCH (08:52)
[2018-02-21] MEDS: ZINC SULFATE 220 MG CAP PO SCH (08:52)
--- NOTE | 2018-02-21 08:56 | PN ---
Date/Time of Note Date/Time of Note DATE: 02/21/18 TIME: 08:56 Assessment/Plan VTE Prophylaxis Risk score (from Ns)>0 risk: 4 SCD applied (from Ns): Yes Pharmacological prophylaxis: LMWH Lines/Catheters IV Catheter Type (from Nrs): Peripheral IV Urinary Cath still in place: No Assessment/Plan Assessment/Plan 1. Left great toe metatarsal wound s/p debridement 02/17 and 02/20 - Podiatry on board and appreciate consultation. Continue offloading left foot while in bed. - Cultures noted. ID on board and appreciate recommendations. Will need to continue on IV antibiotics after discharge. CT scan concerning for early developing OM and will obtain MRI to determine length of antibiotics - Xray results noted - wound cx noted 2. Diabetes Mellitus - A1 noted - Continued on Lantus 60 units which is his home dose - started on Glipizide BID and will monitor for improvement in control. Will add Novolog 5 with meals as well. - on 3 PO medications at home as well - ISS and accuchecks 3. ALESSANDRO- resolved - Renal function appears at baseline - will avoid nephrotoxic agents - Renal US negative for chronic disease or obstruction 4. Sepsis secondary diabetic foot ulcer - Remains afebrile and will need to assess for early OM seen on CT scan - ID on board and appreciate recommendations - WBC still elevated 5. Disposition - MRI pending to assess for early osteo seen on CT scan to determine duration of antibiotics Result Diagram: 02/21/18 0533 02/21/18 0533 Results 24hrs Laboratory Tests Test 02/20/18 11:47 02/20/18 17:23 02/20/18 21:44 02/21/18 02:12 Bedside Glucose 247 H 189 248 H 221 H Test 02/21/18 05:33 02/21/18 07:58 White Blood 12.1 H Count Red Blood Count 3.21 L Hemoglobin 9.9 L Hematocrit 28.7 L Mean Corpuscular 89.4 Volume Mean Corpuscular 30.8 Hemoglobin Mean Corpuscular 34.5 Hemoglobin Jenniffer nt Red Cell 12.4 Distribution Width Platelet Count 376 # Mean Platelet 9.4 Volume Immature 1.000 H Granulocytes % Neutrophils % 74.5 Lymphocytes % 14.5 L Monocytes % 6.8 Eosinophils % 3.0 Basophils % 0.2 Nucleated Red 0.0 Blood Cells % Immature 0.120 H Granulocytes # Neutrophils # 9.0 H Lymphocytes # 1.8 Monocytes # 0.8 Eosinophils # 0.4 Basophils # 0.0 Nucleated Red 0.0 Blood Cells # Sodium Level 140 Potassium Level 3.9 Chloride Level 112 H Carbon Dioxide 18 L Level Anion Gap 10 Blood Urea 25 H Nitrogen Creatinine 1.12 Glucose Level 208 Calcium Level 8.7 Phosphorus Level 2.3 L Magnesium Level 1.8 Albumin 2.7 L Bedside Glucose 205 Subjective 24 Hr Interval Summary Free Text/Dictation Patient underwent surgical intervention yesterday and states hes doing well today. Denies any fevers or new issues. Exam/Review of Systems Vital Signs Vitals Vital Signs Date Temp Pulse Resp B/P (MAP) Pulse Ox O2 O2 Flow FiO2 Time Delivery Rate 02/21/18 98.3 91 16 114/60 97 Room Air 07:35 (78) 02/21/18 21 05:15 02/19/18 2.0 21:00 Intake and Output 02/20/18 02/20/18 02/21/18 1515:00 23:00 07:00 IntakeIntake Total 300 ml 350 ml 1250 ml OutputOutput Total 1350 ml 5 ml 900 ml BalanceBalance -1050 ml 345 ml 350 ml Exam General: No acute distress. awake and answering questions appropriately Neck: Supple Lungs: Clear to auscultation bilaterally no crackles rales or wheezing Heart: Normal S1-S2, Regular rhythm and rate. No murmur, S3, or S4 Abdomen: Soft , nontender, nondistended , bowel sounds are present. No guarding no rebound tenderness Extremities: left foot dressing in place, no discharge appreciated. Medications Medications Current Medications IV Flush (NS 3 ml) 3 ml PER PROTOCOL IV ; Start 02/16/18 at 22:30 Ondansetron HCl (Zofran Inj) 4 mg Q6H PRN IV NAUSEA AND/OR VOMITING; Start 02/16/18 at 22:30 Acetaminophen (Tylenol Tab) 650 mg Q6H PRN PO PAIN LEVEL 1-3 OR FEVER Last administered on 02/20/18at 09:29; Admin Dose 650 MG; Start 02/16/18 at 22:30 Acetaminophen/ Hydrocodone Bitart ([place] (5/325)) 1 tab Q6H PRN PO MODERATE PAIN LEVEL 4-6 Last administered on 02/16/18at 22:49; Admin Dose 1 TAB; Start 02/16/18 at 22:30 Docusate Sodium (Colace) 100 mg Q12H PRN PO CONSTIPATION Last administered on 02/19/18at 02:22; Admin Dose 100 MG; Start 02/16/18 at 22:30 Bisacodyl (Dulcolax) 5 mg DAILY PRN PO CONSTIPATION Last administered on at 02:23; Admin Dose 5 MG; Start 02/16/18 at 22:30 Vancomycin HCl (Vanco Iv Per Pharmacy) VANCOMYCIN PER PHARMACY PER PROTOCOL XX ; Start 02/16/18 at 22:30 Insulin Aspart (Novolog Insulin Pen) NOVOLOG *MILD* ALGORITHM WITH MEALS BEDTIME SC Last administered on 02/21/18at 07:59; Admin Dose 2 UNIT; Start 02/17/18 at 08:00 Miscellaneous Information 1 ea NOTE XX ; Start 02/16/18 at 22:30 Glucose (Glutose) 15 gm Q15M PRN PO DECREASED GLUCOSE; Start 02/16/18 at 22:30 Glucose (Glutose) 22.5 gm Q15M PRN PO DECREASED GLUCOSE; Start 02/16/18 at 22:30 Dextrose (D50w Syringe) 25 ml Q15M PRN IV DECREASED GLUCOSE; Start 02/16/18 at 22:30 Dextrose (D50w Syringe) 50 ml Q15M PRN IV DECREASED GLUCOSE; Start 02/16/18 at 22:30 Glucagon (Glucagen) 1 mg Q15M PRN IM DECREASED GLUCOSE; Start 02/16/18 at 22:30 Glucose (Glutose) 15 gm Q15M PRN BUCCAL DECREASED GLUCOSE; Start 02/16/18 at 22:30 Miscellaneous Information (Pending Santyl Order For Wound Care) This patient zimmerman... PRN PRN XX Stage 3/4 wound ; Start 02/17/18 at 04:30 Collagenase (Santyl) 1 applic DAILY TOP Last administered on 02/18/18at 09:05; Admin Dose 1 APPLIC; Start 02/17/18 at 09:00 Collagenase (Santyl) 1 applic PRN PRN TOP WHEN SOILED; Start 02/17/18 at 05:00 Heparin Sodium (Porcine) (Heparin (5000 Units/1ml)) 5,000 unit Q12 SC Last administered on 02/20/18at 22:02; Admin Dose 5,000 UNIT; Start 02/17/18 at 21:00 Sodium Hypochlorite ([place]'S (Dilute 40)) 1 applic DAILY IRR Last administered on 02/20/18 09:08; Admin Dose 1 APPLIC; Start 02/18/18 at 09:00 Guaifenesin/ Dextromethorphan (Robitussin Dm Liquid Cup) 10 ml Q4H PRN PO cough Last administered on 02/19/18 23:28; Admin Dose 10 ML; Start 02/18/18 at 12:00 Levalbuterol (Xopenex Neb) 1.25 mg Q4H RESP THERAPY HHN Last administered on 05:14; Admin Dose 1.25 MG; Start 02/19/18 at 01:00 Docusate Sodium (Colace) 200 mg BID PO Last administered on 02/20/18 21:45; Admin Dose 200 MG; Start 02/19/18 at 09:00 Polyethylene Glycol (Miralax) 17 gm DAILY PO Last administered on 02/19/18 08:25; Admin Dose 17 GM; Start 02/19/18 at 09:00 Insulin Glargine (Lantus) 60 units QHS SC Last administered on 02/20/18 22:03; Admin Dose 60 UNITS; Start 02/19/18 at 21:00 Meropenem/Sodium Chloride 50 ml @ 100 mls/hr Q12 IVPB Last administered on 02/20/18 21:45; Admin Dose 100 MLS/HR; Start 02/19/18 at 15:00 Vancomycin HCl 1.25 gm/Sodium Chloride 250 ml @ 83.333 mls/ hr Q12H IVPB Last administered on 02/20/18 23:18; Admin Dose 83.333 MLS/HR; Start 02/19/18 at 23:00 Ascorbic Acid (Vitamin C) 500 mg DAILY PO ; Start 02/20/18 at 16:00 Zinc Sulfate (Zinc Sulfate) 220 mg DAILY PO ; Start 02/20/18 at 16:00; Stop 03/03/18 at 15:59 Multivitamins Therapeutic (Theragran) 1 tab DAILY PO ; Start 02/20/18 at 16:00 KATIE RUTLEDGE MD Feb 21, 2018 08:56
[2018-02-21] MEDS: HEPARIN 5,000 UNIT/1 ML VIAL SC SCH ×2 (08:58→20:38)
[2018-02-21] MEDS: DOCUSATE SODIUM 100 MG CAP PO SCH ×3 (09:00→20:40)
[2018-02-21] MEDS: POLYETHYLENE GLYCOL 17 GM PACKET PO SCH ×2 (09:00→15:59)
[2018-02-21] MEDS ORDERED: POTASSIUM PHOSPHATE 20 MEQ in SOD CHLORIDE 0.9% 250 ML IVPB ONE (09:00)
[2018-02-21] MEDS: SODIUM HYPOCHLORITE (1/40) 1 APPLIC BTL IRR SCH (09:04)
[2018-02-21] MEDS: COLLAGENASE 5 GM (UD JAR) TOP SCH (09:04)
[2018-02-21] MEDS: VANCOMYCIN 1.25 GM in SOD CHLORIDE 0.9% 250 ML IVPB SCH ×2 (10:32→22:37)
--- NOTE | 2018-02-21 12:28 | NUR ---
unable to give k-phos due to still vancomycin running.will give later as soon as erikao.finished
[2018-02-21 14:02] VITALS: BP 145/80; PULSE 91; RESP 16
--- NOTE | 2018-02-21 14:39 | NUR ---
patient went down to mri via [facility] with stable condition.
[2018-02-21] MEDS: GUAIFENESIN/DM 5ML CUP PO PRN (15:55)
--- NOTE | 2018-02-21 15:56 | CONS ---
Date/Time of Note Date/Time of Note DATE: 02/21/18 TIME: 15:56 Assessment/Plan Assessment/Plan Hospital Course ID PROGRESS NOTE CURRENT ABX: DAY # => Vanco IV + Merrem 02/21/18 0533 02/21/18 0533 24H INTERVAL SUMMARY * Resting comfortable, awakens, No new issues, VSS, NAD, no complaints * POD#1 -> s/p 02/20/18 I&D Left Foot MICRO * 02/20/18 left foot I&D WOUND CULTURE Preliminary Organism 1 GRAM NEGATIVE RAFITA QUANTITY SCANT GROWTH * 02/19/18 uRINE CX (-) * 02/18/18 BCX (-) * 02/17/18 LEFT FOOT WOUND CX WOUND CULTURE Final Organism 1 ESCHERICHIA COLI QUANTITY 2+ Organism 2 PROTEUS MIRABILIS QUANTITY 2+ Organism 3 ENTEROCOCCUS SPECIES QUANTITY ISOLATED FROM BROTH ONLY Organism 4 KLEBSIELLA PNEUMONIAE QUANTITY 1+ E COLI P. MIRAB ENT SPS M.I.C. RX M.I.C. RX M.I.C. RX --------- --- --------- --- --------- --- AMPICILLIN >=32 R >=32 R <=2 S CEFAZOLIN R CEFOTAXIME S S CIPROFLOXACIN <=0.25 S <=0.25 S GENTAMICIN <=1 S <=1 S LEVOFLOXACIN <=0.12 S <=0.12 S PENICILLIN-G 8 S VANCOMYCIN 2 S TOBRAMYCIN <=1 S <=1 S TRIMETHOPRIM/SULFAMETHOXAZOLE >=320 R <=20 S PIPERACILLIN/TAZOBACTAM K PNEUMO M.I.C. RX --------- --- AMPICILLIN CEFAZOLIN I CEFOTAXIME S CIPROFLOXACIN <=0.25 S GENTAMICIN <=1 S LEVOFLOXACIN <=0.12 S PENICILLIN-G VANCOMYCIN TOBRAMYCIN <=1 S TRIMETHOPRIM/SULFAMETHOXAZOLE <=20 S PIPERACILLIN/TAZOBACTAM <=4 S PHYSICAL EXAMINATION: GENERAL: Afebrile, VSS, HEENT: AT, NC, anicteric NECK: Supple, trach CHEST: Equal chest rise bilaterally, without dyspnea on observation HEART: Pulse RRR ABDOMEN: Soft / NT EXTREMITIES: Warm, dry left foot DSG C/D/I SKIN: No rash, no diaphoresis ID ASSESSMENT 57 yo M admit with: 1. Systemic inflammatory response syndrome 2. Left foot cellulitis/abscess, status post I&D 3. Uncontrolled diabetes 4. Obesity (-)MRSA Nares ABX ALLERGIES: ?Ceftriaxone ? INVASIVES: PIV CURRENT ABX: DAY ===> Vanco IV + Merrem s/p ID RECOMMENDATIONS/PLAN: Continue current ABX f/u on final ID pending Result Diagram: 02/21/18 0533 02/21/18 0533 Results 24hrs Laboratory Tests Test 02/20/18 17:23 02/20/18 21:44 02/21/18 02:12 02/21/18 05:31 Bedside Glucose 189 248 H 221 H Erythrocyte 71 H Sedimentation Rate C-Reactive 19.9 H Protein Test 02/21/18 05:33 02/21/18 07:58 02/21/18 12:23 White Blood 12.1 H Count Red Blood Count 3.21 L Hemoglobin 9.9 L Hematocrit 28.7 L Mean Corpuscular 89.4 Volume Mean Corpuscular 30.8 Hemoglobin Mean Corpuscular 34.5 Hemoglobin Jenniffer nt Red Cell 12.4 Distribution Width Platelet Count 376 # Mean Platelet 9.4 Volume Immature 1.000 H Granulocytes % Neutrophils % 74.5 Lymphocytes % 14.5 L Monocytes % 6.8 Eosinophils % 3.0 Basophils % 0.2 Nucleated Red 0.0 Blood Cells % Immature 0.120 H Granulocytes # Neutrophils # 9.0 H Lymphocytes # 1.8 Monocytes # 0.8 Eosinophils # 0.4 Basophils # 0.0 Nucleated Red 0.0 Blood Cells # Sodium Level 140 Potassium Level 3.9 Chloride Level 112 H Carbon Dioxide 18 L Level Anion Gap 10 Blood Urea 25 H Nitrogen Creatinine 1.12 Glucose Level 208 Calcium Level 8.7 Phosphorus Level 2.3 L Magnesium Level 1.8 Albumin 2.7 L Bedside Glucose 205 263 H Consultation Date/Type/Reason Admit Date/Time Feb 16, 2018 at 20:38 Initial Consult Date Exam/Review of Systems Vital Signs Vitals Vital Signs Date Temp Pulse Resp B/P (MAP) Pulse Ox O2 O2 Flow FiO2 Time Delivery Rate 02/21/18 97.9 91 16 145/80 96 Room Air 14:02 (101) 02/21/18 21 09:12 02/19/18 2.0 21:00 Intake and Output 02/20/18 02/20/18 02/21/18 1515:00 23:00 07:00 IntakeIntake Total 300 ml 350 ml 1250 ml OutputOutput Total 1350 ml 5 ml 900 ml BalanceBalance -1050 ml 345 ml 350 ml Medications Medications Current Medications IV Flush (NS 3 ml) 3 ml PER PROTOCOL IV ; Start 02/16/18 at 22:30 Ondansetron HCl (Zofran Inj) 4 mg Q6H PRN IV NAUSEA AND/OR VOMITING; Start 02/16/18 at 22:30 Acetaminophen (Tylenol Tab) 650 mg Q6H PRN PO PAIN LEVEL 1-3 OR FEVER Last administered on 02/20/18at 09:29; Admin Dose 650 MG; Start 02/16/18 at 22:30 Acetaminophen/ Hydrocodone Bitart ([place] (5/325)) 1 tab Q6H PRN PO MODERATE PAIN LEVEL 4-6 Last administered on 02/16/18at 22:49; Admin Dose 1 TAB; Start 02/16/18 at 22:30 Docusate Sodium (Colace) 100 mg Q12H PRN PO CONSTIPATION Last administered on 02/19/18at 02:22; Admin Dose 100 MG; Start 02/16/18 at 22:30 Bisacodyl (Dulcolax) 5 mg DAILY PRN PO CONSTIPATION Last administered on 02/19/18at 02:23; Admin Dose 5 MG; Start 02/16/18 at 22:30 Vancomycin HCl (Vanco Iv Per Pharmacy) VANCOMYCIN PER PHARMACY PER PROTOCOL XX ; Start 02/16/18 at 22:30 Insulin Aspart (Novolog Insulin Pen) NOVOLOG *MILD* ALGORITHM WITH MEALS BEDTIME SC Last administered on 02/21/18at 12:25; Admin Dose 4 UNIT; Start 02/17/18 at 08:00 Miscellaneous Information 1 ea NOTE XX ; Start 02/16/18 at 22:30 Glucose (Glutose) 15 gm Q15M PRN PO DECREASED GLUCOSE; Start 02/16/18 at 22:30 Glucose (Glutose) 22.5 gm Q15M PRN PO DECREASED GLUCOSE; Start 02/16/18 at 22:30 Dextrose (D50w Syringe) 25 ml Q15M PRN IV DECREASED GLUCOSE; Start 02/16/18 at 22:30 Dextrose (D50w Syringe) 50 ml Q15M PRN IV DECREASED GLUCOSE; Start 02/16/18 at 22:30 Glucagon (Glucagen) 1 mg Q15M PRN IM DECREASED GLUCOSE; Start 02/16/18 at 2 2:30 Glucose (Glutose) 15 gm Q15M PRN BUCCAL DECREASED GLUCOSE; Start 02/16/18 at 22:30 Miscellaneous Information (Pending Santyl Order For Wound Care) This patient zimmerman... PRN PRN XX Stage 3/4 wound ; Start 02/17/18 at 04:30 Collagenase (Santyl) 1 applic DAILY TOP Last administered on 02/21/18at 09:04; Admin Dose 1 APPLIC; Start 02/17/18 at 09:00 Collagenase (Santyl) 1 applic PRN PRN TOP WHEN SOILED; Start 02/17/18 at 05:00 Heparin Sodium (Porcine) (Heparin (5000 Units/1ml)) 5,000 unit Q12 SC Last administered on 02/21/18at 08:58; Admin Dose 5,000 UNIT; Start 02/17/18 at 21:00 Sodium Hypochlorite (Dakin'S (Dilute 1/40)) 1 applic DAILY IRR Last administered on 02/21/18at 09:04; Admin Dose 1 APPLIC; Start 02/18/18 at 09:00 Guaifenesin/ Dextromethorphan (Robitussin Dm Liquid Cup) 10 ml Q4H PRN PO cough Last administered on 02/21/18at 15:55; Admin Dose 10 ML; Start 02/18/18 at 12:00 Levalbuterol (Xopenex Neb) 1.25 mg Q4H RESP THERAPY HHN Last administered on 02/21/18at 09:06; Admin Dose 1.25 MG; Start 02/19/18 at 01:00 Docusate Sodium (Colace) 200 mg BID PO Last administered on 02/20/18at 21:45; Admin Dose 200 MG; Start 02/19/18 at 09:00 Polyethylene Glycol (Miralax) 17 gm DAILY PO Last administered on 02/19/18at 08:25; Admin Dose 17 GM; Start 02/19/18 at 09:00 Insulin Glargine (Lantus) 60 units QHS SC Last administered on 02/20/18at 22:03; Admin Dose 60 UNITS; Start 02/19/18 at 21:00 Meropenem/Sodium Chloride 50 ml @ 100 mls/hr Q12 IVPB Last administered on 02/21/18at 08:51; Admin Dose 100 MLS/HR; Start 02/19/18 at 15:00 Vancomycin HCl 1.25 gm/Sodium Chloride 250 ml @ 83.333 mls/ hr Q12H IVPB Last administered on 02/21/18at 10:32; Admin Dose 83.333 MLS/HR; Start 02/19/18 at 23:00 Ascorbic Acid (Vitamin C) 500 mg DAILY PO Last administered on 02/21/18 08:52; Admin Dose 500 MG; Start 02/20/18 at 16:00 Zinc Sulfate (Zinc Sulfate) 220 mg DAILY PO Last administered on 02/21/18 08:52; Admin Dose 220 MG; Start 02/20/18 at 16:00; Stop 03/03/18 at 15:59 Multivitamins Therapeutic (Theragran) 1 tab DAILY PO Last administered on 02/21/18at 08:52; Admin Dose 1 TAB; Start 02/20/18 at 16:00 Miscellaneous Information (*Rx Drug Level Order Reminder*) VANC TROUGH @ 1,000 ONCE ONCE XX ; Start 02/22/18 at 10:00; Stop 02/22/18 at 10:01 Glipizide (Glucotrol) 5 mg AC BREAKFAST DINNER PO ; Start 02/21/18 at 17:35 Insulin Aspart (Novolog Insulin Pen) 5 unit WITH MEALS SC ; Start 02/21/18 at 17:35 VENU NORIEGA NP Feb 21, 2018 15:56
--- NOTE | 2018-02-21 15:57 | NUR ---
patient came from the mri with stable condition.patient refused to take stool softner as ordered.
[2018-02-21] MEDS: glipiZIDE 5 MG TAB PO SCH (17:25)
--- NOTE | 2018-02-21 17:57 | PN ---
Date/Time of Note Date/Time of Note DATE: 02/21/18 TIME: 17:57 Assessment/Plan VTE Prophylaxis Risk score (from Nsg)>0 risk: 1 SCD applied (from Nsg): Yes Pharmacological prophylaxis: heparin Lines/Catheters IV Catheter Type (from Nrsg): Saline Lock Urinary Cath still in place: No Assessment/Plan Hospital Course 57 y/o diabetic M patient presents to the floor with left foot ulceration which has been present for over a month but has worsened in the past 6 days. Patient had attempted to manage it himself but noticed it was not improving. He noticed increased swelling, redness, and drainage. Patient relates the wound caused by ill fitting shoes. Patient denies f/c/n/v no chest pain or shortness of breath. Assessment/Plan 1) Left foot diabetic ulcer s/p excisional debridement (DOS: 02/20/18) 2) Cellulitis 3) abscess L foot 4) DM2 with peripheral neuropathy 5) LLE edema 6) Obesity Plan: Excisional debridement of subQ/tendon/adipose tissue. Copious dakins and betadine irrigation was used at the incision sites. Betadine 1/4inch packing placed into the wound sites. Recommend BID dressing changes. Wound cultures showing mixed gram neg organisms and enterococcus. Intra op Cx showing gram neg rods. Continue with IV abx per recommendations. Recommend offloading with pillows. Continue with warm blankets to the foot. Medical decisions, treatment, and plan coordinated with Dr. Peerz. Result Diagram: 02/21/18 0533 02/21/18 0533 Results 24hrs Laboratory Tests Test 02/20/18 21:44 02/21/18 02:12 02/21/18 05:31 02/21/18 05:33 Bedside Glucose 248 H 221 H Erythrocyte 71 H Sedimentation Rate C-Reactive 19.9 H Protein White Blood 12.1 H Count Red Blood Count 3.21 L Hemoglobin 9.9 L Hematocrit 28.7 L Mean Corpuscular 89.4 Volume Mean Corpuscular 30.8 Hemoglobin Mean Corpuscular 34.5 Hemoglobin Jenniffer nt Red Cell 12.4 Distribution Width Platelet Count 376 # Mean Platelet 9.4 Volume Immature 1.000 H Granulocytes % Neutrophils % 74.5 Lymphocytes % 14.5 L Monocytes % 6.8 Eosinophils % 3.0 Basophils % 0.2 Nucleated Red 0.0 Blood Cells % Immature 0.120 H Granulocytes # Neutrophils # 9.0 H Lymphocytes # 1.8 Monocytes # 0.8 Eosinophils # 0.4 Basophils # 0.0 Nucleated Red 0.0 Blood Cells # Sodium Level 140 Potassium Level 3.9 Chloride Level 112 H Carbon Dioxide 18 L Level Anion Gap 10 Blood Urea 25 H Nitrogen Creatinine 1.12 Glucose Level 208 Calcium Level 8.7 Phosphorus Level 2.3 L Magnesium Level 1.8 Albumin 2.7 L Test 02/21/18 07:58 02/21/18 12:23 02/21/18 17:24 Bedside Glucose 205 263 H 278 H Subjective 24 Hr Interval Summary Free Text/Dictation No acute events overnight Exam/Review of Systems Vital Signs Vitals Vital Signs Date Temp Pulse Resp B/P (MAP) Pulse Ox O2 O2 Flow FiO2 Time Delivery Rate 02/21/18 86 20 96 21 16:28 02/21/18 97.9 145/80 Room Air 14:02 (101) 02/19/18 2.0 21:00 Intake and Output 02/20/18 02/20/18 02/21/18 1515:00 23:00 07:00 IntakeIntake Total 300 ml 350 ml 1250 ml OutputOutput Total 1350 ml 5 ml 900 ml BalanceBalance -1050 ml 345 ml 350 ml Exam Epidermalysis noted to the left medial forefoot region Medial ankle and leg erythema noted with increased warmth DP/PT pulses palpable Absent protective sensations 2+ pitting edema to left lower extremity Left 1st MPJ ulceration with fibro granular wound base Measuring 5 x 2 x 2.0cm. Dorsal lateral hallux ulcer measuring 3.2 x 1.1 x 2.0cm. The wounds communicate with each other No purulence appreciated at the ulcer site. The wound probes to joint capsule and laterally. There is surrounding erythema. There is cyanosis noted to the L hallux Left medial 2nd digit site appreciated a partial thickness wound showing signs of epithelialization Right foot 2nd digit amputation appreciated Muscle strength 5/5 in all compartments of the foot. MRI L foot IMPRESSION: 1. Focal soft tissue ulceration along the plantar medial aspect of the hallux sesamoid articulation with associated soft tissue sinus tract that terminates and fluid at the base of the medial sesamoid. There is no MR evidence of orga nizing soft tissue abscess. The fluid collection abuts the plantar medial cortex of the medial sesamoid however there is no MR evidence of osteomyelitis. 2. Near circumferential significant soft tissue inflammation about the forefoot predominating on the plantar medial aspect of the level of the first MTP joint. 3. Mild marrow edema signal of the medial head of the first metatarsal. Findings are likely related to degenerative changes and are associated with mild thickening of the medial capsule ligament. Non-invasive arterial studies IMPRESSION: 1. No sonographic evidence for hemodynamically significant arterial stenosis or occlusion in the bilateral lower extremities. 2. Left dorsalis pedis artery was not evaluated due to overlying bandage. 3. Normal bilateral ankle brachial indices. There is normal triphasic flow throughout the left lower extremity arterial system. The left posterior tibial artery brachial index is 1.2 and left dorsalis pedis ankle brachial index is 1.2. Foot X-ray IMPRESSION: 1. Soft tissue injury overlying the first metatarsal phalangeal joint medially. 2. Otherwise unremarkable images of the left foot. CT IMPRESSION: Redemonstration of left foot cellulitis with more focal soft tissue thickening noted adjacent to the first digit. No discrete collections are identified. Soft tissue gas and postsurgical packing material is noted surrounding the left first digit. Suggestion of subtle sclerosis involving the adjacent sesamoid bone medially raising the possibility for new osteitis/osteomyelitis and should be correlated with repeat MRI as warranted. Incidental note is also made of a subacute appearing fracture through the posterior medial tibial plateau. Findings are superimposed on the background of tricompartmental joint osteoarthrosis. Medications Medications Current Medications IV Flush (NS 3 ml) 3 ml PER PROTOCOL IV ; Start 02/16/18 at 22:30 Ondansetron HCl (Zofran Inj) 4 mg Q6H PRN IV NAUSEA AND/OR VOMITING; Start 02/16/18 at 22:30 Acetaminophen (Tylenol Tab) 650 mg Q6H PRN PO PAIN LEVEL 1-3 OR FEVER Last administered on 02/20/18at 09:29; Admin Dose 650 MG; Start 02/16/18 at 22:30 Acetaminophen/ Hydrocodone Bitart ([place] (5/325)) 1 tab Q6H PRN PO MODERATE PAIN LEVEL 4-6 Last administered on 02/16/18at 22:49; Admin Dose 1 TAB; Start 02/16/18 at 22:30 Docusate Sodium (Colace) 100 mg Q12H PRN PO CONSTIPATION Last administered on 02/19/18at 02:22; Admin Dose 100 MG; Start 02/16/18 at 22:30 Bisacodyl (Dulcolax) 5 mg DAILY PRN PO CONSTIPATION Last administered on 02/19/18at 02:23; Admin Dose 5 MG; Start 02/16/18 at 22:30 Vancomycin HCl (Vanco Iv Per Pharmacy) VANCOMYCIN PER PHARMACY PER PROTOCOL XX ; Start 02/16/18 at 22:30 Insulin Aspart (Novolog Insulin Pen) NOVOLOG *MILD* ALGORITHM WITH MEALS BEDTIME SC Last administered on 02/21/18at 17:26; Admin Dose 4 UNIT; Start at 08:00 Miscellaneous Information 1 ea NOTE XX ; Start 02/16/18 at 22:30 Glucose (Glutose) 15 gm Q15M PRN PO DECREASED GLUCOSE; Start 02/16/18 at 22:30 Glucose (Glutose) 22.5 gm Q15M PRN PO DECREASED GLUCOSE; Start 02/16/18 at 22:30 Dextrose (D50w Syringe) 25 ml Q15M PRN IV DECREASED GLUCOSE; Start 02/16/18 at 22:30 Dextrose (D50w Syringe) 50 ml Q15M PRN IV DECREASED GLUCOSE; Start 02/16/18 at 22:30 Glucagon (Glucagen) 1 mg Q15M PRN IM DECREASED GLUCOSE; Start 02/16/18 at 22:3 0 Glucose (Glutose) 15 gm Q15M PRN BUCCAL DECREASED GLUCOSE; Start 02/16/18 at 22:30 Miscellaneous Information (Pending Santyl Order For Wound Care) This patient zimmerman... PRN PRN XX Stage 3/4 wound ; Start 02/17/18 at 04:30 Collagenase (Santyl) 1 applic DAILY TOP Last administered on 02/21/18at 09:04; Admin Dose 1 APPLIC; Start 02/17/18 at 09:00 Collagenase (Santyl) 1 applic PRN PRN TOP WHEN SOILED; Start 02/17/18 at 05:00 Heparin Sodium (Porcine) (Heparin (5000 Units/1ml)) 5,000 unit Q12 SC Last administered on 02/21/18at 08:58; Admin Dose 5,000 UNIT; Start 02/17/18 at 21:00 Sodium Hypochlorite (Dakin'S (Dilute )) 1 applic DAILY IRR Last administered on 02/21/18 09:04; Admin Dose 1 APPLIC; Start 02/18/18 at 09:00 Guaifenesin/ Dextromethorphan (Robitussin Dm Liquid Cup) 10 ml Q4H PRN PO cough Last administered on 02/21/18 15:55; Admin Dose 10 ML; Start 02/18/18 at 12: 00 Levalbuterol (Xopenex Neb) 1.25 mg Q4H RESP THERAPY HHN Last administered on 02/21/18 16:27; Admin Dose 1.25 MG; Start 02/19/18 at 01:00 Docusate Sodium (Colace) 200 mg BID PO Last administered on 02/20/18 21:45; Admin Dose 200 MG; Start 02/19/18 at 09:00 Polyethylene Glycol (Miralax) 17 gm DAILY PO Last administered on 02/19/18 08:25; Admin Dose 17 GM; Start 02/19/18 at 09:00 Insulin Glargine (Lantus) 60 units QHS SC Last administered on 02/20/18 22:03; Admin Dose 60 UNITS; Start 02/19/18 at 21:00 Meropenem/Sodium Chloride 50 ml @ 100 mls/hr Q12 IVPB Last administered on 02/21/18 08:51; Admin Dose 100 MLS/HR; Start 02/19/18 at 15:00 Vancomycin HCl 1.25 gm/Sodium Chloride 250 ml @ 83.333 mls/ hr Q12H IVPB Last administered on 02/21/18 10:32; Admin Dose 83.333 MLS/HR; Start 02/19/18 at 23:00 Ascorbic Acid (Vitamin C) 500 mg DAILY PO Last administered on 02/21/18 08:52; Admin Dose 500 MG; Start 02/20/18 at 16:00 Zinc Sulfate (Zinc Sulfate) 220 mg DAILY PO Last administered on 02/21/18 08:52; Admin Dose 220 MG; Start 02/20/18 at 16:00; Stop 03/03/18 at 15:59 Multivitamins Therapeutic (Theragran) 1 tab DAILY PO Last administered on 02/21/18 08:52; Admin Dose 1 TAB; Start 02/20/18 at 16:00 Miscellaneous Information (*Rx Drug Level Order Reminder*) VANC TROUGH @ 1,000 ONCE ONCE XX ; Start 02/22/18 at 10:00; Stop 02/22/18 at 10:01 Glipizide (Glucotrol) 5 mg AC BREAKFAST DINNER PO Last administered on 02/21/18at 17:25; Admin Dose 5 MG; Start 02/21/18 at 17:35 Insulin Aspart (Novolog Insulin Pen) 5 unit WITH MEALS SC Last administered on 02/21/18at 17:27; Admin Dose 5 UNIT; Start 02/21/18 at 17:35 NIMISHA HENNING DPM Feb 21, 2018 17:57
--- NOTE | 2018-02-21 18:41 | NUR ---
all needs met.no acute events. came and did the dressing change today .call light within reach.bed alarm on.he is resting comfortably in bed.
[2018-02-21 20:00] VITALS: BP 151/76; PULSE 90; RESP 18
[2018-02-21] MEDS: INSULIN GLARGINE [LANTus] (100 UNITS/ML) SYG SC SCH (20:40)
--- NOTE | 2018-02-21 21:00 | NUR ---
pt denies pain, due meds given as ordered. attempted to schedule pt's wound care and pt verbalized not wanting to have wound care tonight since pt reports it was done twice today. explained this RN needs to do the wound care tomorrow compensation director and attempted to schedule wound care between 0400 to 0630. pt refused the said times, states "its too early" and wants his wound care at around 0900. blood sugar at hs was 271, lantus 60 units and novolog insulin per SS was given. pt was given string cheese for hs snack. blood sugar improved to 118 at 0230. pt stable with needs attended to and anticpated. will continue to monitor and will endorse to next shift.
[2018-02-22] MEDS: LEVALBUTEROL (NEB) 1.25 MG/0.5 ML AMP HHN SCH ×6 (01:10→20:24)
[2018-02-22 02:00] VITALS: BP 123/58; PULSE 96; RESP 18
[2018-02-22] MEDS: glipiZIDE 5 MG TAB PO SCH ×2 (07:50→17:35)
[2018-02-22] MEDS: INSULIN ASPART [NOVOLOG] 3 ML PEN SC SCH ×7 (07:52→21:00)
[2018-02-22] MEDS: MEROPENEM 1 GM/50ML(PMX) 50 ML IVPB SCH ×2 (08:36→20:45)
[2018-02-22] MEDS: ZINC SULFATE 220 MG CAP PO SCH (08:36)
[2018-02-22] MEDS: ASCORBIC ACID 500 MG TAB PO SCH (08:36)
[2018-02-22] MEDS: DOCUSATE SODIUM 100 MG CAP PO SCH ×2 (08:36→20:45)
[2018-02-22] MEDS: MULTIVITAMINS THERAPEUTIC TAB PO SCH (08:36)
[2018-02-22] MEDS: POLYETHYLENE GLYCOL 17 GM PACKET PO SCH (08:36)
[2018-02-22] MEDS: HEPARIN 5,000 UNIT/1 ML VIAL SC SCH ×2 (08:37→20:46)
[2018-02-22 08:42] VITALS: BP 143/77; PULSE 91; RESP 17
[2018-02-22] MEDS: SODIUM HYPOCHLORITE (1/40) 1 APPLIC BTL IRR SCH ×2 (08:49→21:00)
--- NOTE | 2018-02-22 08:59 | PN ---
Date/Time of Note Date/Time of Note DATE: 02/22/18 TIME: 08:59 Assessment/Plan VTE Prophylaxis Risk score (from Ns)>0 risk: 2 SCD applied (from Ns): Yes Pharmacological prophylaxis: LMWH Lines/Catheters IV Catheter Type (from Nrs): Saline Lock Urinary Cath still in place: No Assessment/Plan Assessment/Plan 1. Left great toe metatarsal wound s/p debridement 02/17 and 02/20 - Podiatry on board and appreciate consultation. Continue offloading left foot while in bed. BID dressing changes - Cultures noted. ID on board and appreciate recommendations. Will need to continue on IV antibiotics after discharge. - Repeat MRI negative for OM - Xray results noted - wound cx noted 2. Diabetes Mellitus - A1 noted - Continued on Lantus 60 units which is his home dose. - Novolog and Glipizide on board as well - on 3 PO medications at home as well - ISS and accuchecks 3. ALESSANDRO- resolved - Renal function appears at baseline - will avoid nephrotoxic agents - Renal US negative for chronic disease or obstruction 4. Sepsis secondary diabetic foot ulcer - Remains afebrile and will need to assess for early OM seen on CT scan - ID on board and appreciate recommendations - WBC trending down and remains afebrile 5. Disposition - Awaiting final antibiotic recommendations from ID and clearance for d/c from podiatry - Patient worried about going home with IV antibiotics since lives alone Result Diagram: 02/22/18 0438 02/22/18 0438 Results 24hrs Laboratory Tests Test 02/21/18 12:23 02/21/18 17:24 02/21/18 20:33 02/22/18 02:40 Bedside Glucose 263 H 278 H 271 H 118 Test 02/22/18 04:38 02/22/18 07:48 White Blood 11.5 H Count Red Blood Count 3.16 L Hemoglobin 9.6 L Hematocrit 28.2 L Mean Corpuscular 89.2 Volume Mean Corpuscular 30.4 Hemoglobin Mean Corpuscular 34.0 Hemoglobin Jenniffer nt Red Cell 12.3 Distribution Width Platelet Count 385 Mean Platelet 9.3 Volume Immature 1.800 H Granulocytes % Neutrophils % 70.9 Lymphocytes % 18.8 Monocytes % 5.6 Eosinophils % 2.6 Basophils % 0.3 Nucleated Red 0.0 Blood Cells % Immature 0.210 H Granulocytes # Neutrophils # 8.2 H Lymphocytes # 2.2 Monocytes # 0.6 Eosinophils # 0.3 Basophils # 0.0 Nucleated Red 0.0 Blood Cells # Sodium Level 137 Potassium Level 3.8 Chloride Level 114 H Carbon Dioxide 19 L Level Anion Gap 4 L Blood Urea 25 H Nitrogen Creatinine 1.02 Glucose Level 100 # Calcium Level 8.7 Phosphorus Level 3.0 Magnesium Level 1.9 Albumin 2.6 L Bedside Glucose 109 Subjective 24 Hr Interval Summary Free Text/Dictation Patients feeling better and denies any new issues. Asking about wound closure and instructed to discuss with podiatry. Exam/Review of Systems Vital Signs Vitals Vital Signs Date Temp Pulse Resp B/P (MAP) Pulse Ox O2 O2 Flow FiO2 Time Delivery Rate 02/22/18 99.5 91 17 143/77 93 Room Air 08:42 (99) 02/22/18 21 04:55 02/19/18 2.0 21:00 Intake and Output 02/21/18 02/21/18 02/22/18 1414:59 22:59 06:59 IntakeIntake Total 850 ml 664.5455 ml 250 ml OutputOutput Total 750 ml 300 ml 700 ml BalanceBalance 100 ml 364.5455 ml -450 ml Exam General: No acute distress. awake and answering questions appropriately Neck: Supple Lungs: Clear to auscultation bilaterally no crackles rales or wheezing Heart: Normal S1-S2, Regular rhythm and rate. No murmur, S3, or S4 Abdomen: Soft , nontender, nondistended , bowel sounds are present. No guarding no rebound tenderness Extremities: left foot dressing in place, no discharge appreciated. Medications Medications Current Medications IV Flush (NS 3 ml) 3 ml PER PROTOCOL IV ; Start 02/16/18 at 22:30 Ondansetron HCl (Zofran Inj) 4 mg Q6H PRN IV NAUSEA AND/OR VOMITING; Start 02/16/18 at 22:30 Acetaminophen (Tylenol Tab) 650 mg Q6H PRN PO PAIN LEVEL 1-3 OR FEVER Last administered on 02/20/18at 09:29; Admin Dose 650 MG; Start 02/16/18 at 22:30 Acetaminophen/ Hydrocodone Bitart ([place] (5/325)) 1 tab Q6H PRN PO MODERATE PAIN LEVEL 4-6 Last administered on 02/16/18at 22:49; Admin Dose 1 TAB; Start 02/16/18 at 22:30 Docusate Sodium (Colace) 100 mg Q12H PRN PO CONSTIPATION Last administered on 02/19/18at 02:22; Admin Dose 100 MG; Start 02/16/18 at 22:30 Bisacodyl (Dulcolax) 5 mg DAILY PRN PO CONSTIPATION Last administered on 02/19/18at 02:23; Admin Dose 5 MG; Start 02/16/18 at 22:30 Vancomycin HCl (Vanco Iv Per Pharmacy) VANCOMYCIN PER PHARMACY PER PROTOCOL XX ; Start 02/16/18 at 22:30 Insulin Aspart (Novolog Insulin Pen) NOVOLOG *MILD* ALGORITHM WITH MEALS BEDTIME SC Last administered on 02/21/18at 20:35; Admin Dose 3 UNIT; Start 02/17/18 at 08:00 Miscellaneous Information 1 ea NOTE XX ; Start 02/16/18 at 22:30 Glucose (Glutose) 15 gm Q15M PRN PO DECREASED GLUCOSE; Start 02/16/18 at 22:30 Glucose (Glutose) 22.5 gm Q15M PRN PO DECREASED GLUCOSE; Start 02/16/18 at 22:30 Dextrose (D50w Syringe) 25 ml Q15M PRN IV DECREASED GLUCOSE; Start 02/16/18 at 22:30 Dextrose (D50w Syringe) 50 ml Q15M PRN IV DECREASED GLUCOSE; Start 02/16/18 at 22:30 Glucagon (Glucagen) 1 mg Q15M PRN IM DECREASED GLUCOSE; Start 02/16/18 at 22:30 Glucose (Glutose) 15 gm Q15M PRN BUCCAL DECREASED GLUCOSE; Start 02/16/18 at 22:30 Miscellaneous Information (Pending Santyl Order For Wound Care) This patient zimmerman... PRN PRN XX Stage 3/4 wound ; Start 02/17/18 at 04:30 Collagenase (Santyl) 1 applic DAILY TOP Last administered on 02/21/18at 09:04; Admin Dose 1 APPLIC; Start 02/17/18 at 09:00 Collagenase (Santyl) 1 applic PRN PRN TOP WHEN SOILED; Start 02/17/18 at 05:00 Heparin Sodium (Porcine) (Heparin (5000 Units/1ml)) 5,000 unit Q12 SC Last administered on 02/22/18at 08:37; Admin Dose 5,000 UNIT; Start 02/17/18 at 21:00 Sodium Hypochlorite (Dakin'S (Dilute 40)) 1 applic DAILY IRR Last administered on 02/22/18 08:49; Admin Dose 1 APPLIC; Start 02/18/18 at 09:00 Guaifenesin/ Dextromethorphan (Robitussin Dm Liquid Cup) 10 ml Q4H PRN PO cough Last administered on 02/21/18 15:55; Admin Dose 10 ML; Start 02/18/18 at 12:00 Levalbuterol (Xopenex Neb) 1.25 mg Q4H RESP THERAPY HHN Last administered on 02/22/18 04:55; Admin Dose 1.25 MG; Start 02/19/18 at 01:00 Docusate Sodium (Colace) 200 mg BID PO Last administered on 02/22/18 08:36; Admin Dose 200 MG; Start 02/19/18 at 09:00 Polyethylene Glycol (Miralax) 17 gm DAILY PO Last administered on 02/22/18 08:36; Admin Dose 17 GM; Start 02/19/18 at 09:00 Insulin Glargine (Lantus) 60 units QHS SC Last administered on 02/21/18 20:40; Admin Dose 60 UNITS; Start 02/19/18 at 21:00 Meropenem/Sodium Chloride 50 ml @ 100 mls/hr Q12 IVPB Last administered on 02/22/18 08:36; Admin Dose 100 MLS/HR; Start 02/19/18 at 15:00 Vancomycin HCl 1.25 gm/Sodium Chloride 250 ml @ 83.333 mls/ hr Q12H IVPB Last administered on 02/21/18 22:37; Admin Dose 83.333 MLS/HR; Start 02/19/18 at 23:00 Ascorbic Acid (Vitamin C) 500 mg DAILY PO Last administered on 02/22/18 08:36; Admin Dose 500 MG; Start 02/20/18 at 16:00 Zinc Sulfate (Zinc Sulfate) 220 mg DAILY PO Last administered on 02/22/18 08:36; Admin Dose 220 MG; Start 02/20/18 at 16:00; Stop 03/03/18 at 15:59 Multivitamins Therapeutic (Theragran) 1 tab DAILY PO Last administered on 02/22/18at 08:36; Admin Dose 1 TAB; Start 02/20/18 at 16:00 Miscellaneous Information (*Rx Drug Level Order Reminder*) VANC TROUGH @ 1,000 ONCE ONCE XX ; Start 02/22/18 at 10:00; Stop 02/22/18 at 10:01 Glipizide (Glucotrol) 5 mg AC BREAKFAST DINNER PO Last administered on 02/22/18at 07:50; Admin Dose 5 MG; Start 02/21/18 at 17:35 Insulin Aspart (Novolog Insulin Pen) 5 unit WITH MEALS SC Last administered on 02/22/18at 07:52; Admin Dose 5 UNIT; Start 02/21/18 at 17:35 KATIE RUTLEDGE MD Feb 22, 2018 08:59
[2018-02-22] MEDS: COLLAGENASE 5 GM (UD JAR) TOP SCH (09:00)
[2018-02-22] MEDS: VANCOMYCIN 1.25 GM in SOD CHLORIDE 0.9% 250 ML IVPB SCH ×2 (11:40→23:10)
--- NOTE | 2018-02-22 15:09 | CONS ---
Date/Time of Note Date/Time of Note DATE: 02/22/18 TIME: 15:00 Assessment/Plan Assessment/Plan Hospital Course ID PROGRESS NOTE CURRENT ABX: DAY # => Vanco IV + Merrem 02/22/188 02/22/18 0438 24H INTERVAL SUMMARY * Resting comfortable, awakens, No new issues, VSS, NAD, no complaints * POD#2 -> s/p 02/20/18 I&D Left Foot -- (-)AFB, (-)Fungal to date * 02/20/18 WOUND CULTURE Preliminary Organism 1 ESCHERICHIA COLI QUANTITY SCANT GROWTH E COLI M.I.C. RX --------- --- AMPICILLIN >=32 R CEFAZOLIN R CEFOTAXIME S CIPROFLOXAC <=0.25 S GENTAMICIN <=1 S LEVOFLOXACIN <=0.12 S TOBRAMYCIN <=1 S TRIMETHOPRIM/SULFAMETHOXAZOLE >=320 R MICRO * 02/20/18 left foot I&D see above * 02/19/18 uRINE CX (-) * 02/18/18 BCX (-) * 02/17/18 LEFT FOOT WOUND CX WOUND CULTURE Final Organism 1 ESCHERICHIA COLI QUANTITY 2+ Organism 2 PROTEUS MIRABILIS QUANTITY 2+ Organism 3 ENTEROCOCCUS SPECIES QUANTITY ISOLATED FROM BROTH ONLY Organism 4 KLEBSIELLA PNEUMONIAE QUANTITY 1+ E COLI P. MIRAB ENT SPS M.I.C. RX M.I.C. RX M.I.C. RX --------- --- --------- --- --------- --- AMPICILLIN >=32 R >=32 R <=2 S CEFAZOLIN R CEFOTAXIME S S CIPROFLOXACIN <=0.25 S <=0.25 S GENTAMICIN <=1 S <=1 S LEVOFLOXACIN <=0.12 S <=0.12 S PENICILLIN-G 8 S VANCOMYCIN 2 S TOBRAMYCIN <=1 S <=1 S TRIMETHOPRIM/SULFAMETHOXAZOLE >=320 R <=20 S PIPERACILLIN/TAZOBACTAM K PNEUMO M.I.C. RX --------- --- AMPICILLIN CEFAZOLIN I CEFOTAXIME S CIPROFLOXACIN <=0.25 S GENTAMICIN <=1 S LEVOFLOXACIN <=0.12 S PENICILLIN-G VANCOMYCIN TOBRAMYCIN <=1 S TRIMETHOPRIM/SULFAMETHOXAZOLE <=20 S PIPERACILLIN/TAZOBACTAM <=4 S ------- PHYSICAL EXAMINATION: GENERAL: Afebrile, VSS, HEENT: AT, NC, anicteric NECK: Supple, trach CHEST: Equal chest rise bilaterally, without dyspnea on observation HEART: Pulse RRR ABDOMEN: Soft / NT EXTREMITIES: Warm, dry left foot DSG C/D/I SKIN: No rash, no diaphoresis ID ASSESSMENT 57 yo M admit with: 1. Systemic inflammatory response syndrome 2. Left foot cellulitis/abscess, status post I&D * no MR evidence of osteomyelitis. 3. Uncontrolled diabetes 4. Obesity (-)MRSA Nares ABX ALLERGIES: ?Ceftriaxone ? INVASIVES: PIV CURRENT ABX: DAY ===> Vanco IV + Merrem s/p ID RECOMMENDATIONS/PLAN: Continue current ABX IV FINAL Micro growing E.Coli sensitive to Quinolones Await final recommendations from DPM -- does DPM recommend PO ABX switch? Result Diagram: 02/22/18 0438 02/22/18 0438 Results 24hrs Laboratory Tests Test 02/21/18 17:24 02/21/18 20:33 02/22/18 02:40 02/22/18 04:38 Bedside Glucose 278 H 271 H 118 White Blood 11.5 H Count Red Blood Count 3.16 L Hemoglobin 9.6 L Hematocrit 28.2 L Mean Corpuscular 89.2 Volume Mean Corpuscular 30.4 Hemoglobin Mean Corpuscular 34.0 Hemoglobin Jenniffer nt Red Cell 12.3 Distribution Width Platelet Count 385 Mean Platelet 9.3 Volume Immature 1.800 H Granulocytes % Neutrophils % 70.9 Lymphocytes % 18.8 Monocytes % 5.6 Eosinophils % 2.6 Basophils % 0.3 Nucleated Red 0.0 Blood Cells % Immature 0.210 H Granulocytes # Neutrophils # 8.2 H Lymphocytes # 2.2 Monocytes # 0.6 Eosinophils # 0.3 Basophils # 0.0 Nucleated Red 0.0 Blood Cells # Sodium Level 137 Potassium Level 3.8 Chloride Level 114 H Carbon Dioxide 19 L Level Anion Gap 4 L Blood Urea 25 H Nitrogen Creatinine 1.02 Glucose Level 100 # Calcium Level 8.7 Phosphorus Level 3.0 Magnesium Level 1.9 Albumin 2.6 L Test 02/22/18 07:48 02/22/18 09:57 02/22/18 11:44 Bedside Glucose 109 160 Vancomycin Level 14.4 Trough Consultation Date/Type/Reason Admit Date/Time Feb 16, 2018 at 20:38 Initial Consult Date Exam/Review of Systems Vital Signs Vitals Vital Signs Date Temp Pulse Resp B/P (MAP) Pulse Ox O2 O2 Flow FiO2 Time Delivery Rate 02/22/18 88 18 95 21 12:45 02/22/18 99.5 143/77 Room Air 08:42 (99) 02/19/18 2.0 21:00 Intake and Output 02/21/18 02/21/18 02/22/18 1515:00 23:00 07:00 IntakeIntake Total 850 ml 664.5455 ml 250 ml OutputOutput Total 750 ml 300 ml 700 ml BalanceBalance 100 ml 364.5455 ml -450 ml Medications Medications Current Medications IV Flush (NS 3 ml) 3 ml PER PROTOCOL IV ; Start 02/16/18 at 22:30 Ondansetron HCl (Zofran Inj) 4 mg Q6H PRN IV NAUSEA AND/OR VOMITING; Start 02/16/18 at 22:30 Acetaminophen (Tylenol Tab) 650 mg Q6H PRN PO PAIN LEVEL 1-3 OR FEVER Last administered on 02/20/18at 09:29; Admin Dose 650 MG; Start 02/16/18 at 22:30 Acetaminophen/ Hydrocodone Bitart ([place] (5/325)) 1 tab Q6H PRN PO MODERATE PAIN LEVEL 4-6 Last administered on 02/16/18at 22:49; Admin Dose 1 TAB; Start 02/16/18 at 22:30 Docusate Sodium (Colace) 100 mg Q12H PRN PO CONSTIPATION Last administered on 02/19/18at 02:22; Admin Dose 100 MG; Start 02/16/18 at 22:30 Bisacodyl (Dulcolax) 5 mg DAILY PRN PO CONSTIPATION Last administered on 02/19/18at 02:23; Admin Dose 5 MG; Start 02/16/18 at 22:30 Vancomycin HCl (Vanco Iv Per Pharmacy) VANCOMYCIN PER PHARMACY PER PROTOCOL XX ; Start 02/16/18 at 22:30 Insulin Aspart (Novolog Insulin Pen) NOVOLOG *MILD* ALGORITHM WITH MEALS BEDTIME SC Last administered on 02/22/18at 11:48; Admin Dose 1 UNIT; Start 02/17/18 at 08:00 Miscellaneous Information 1 ea NOTE XX ; Start 02/16/18 at 22:30 Glucose (Glutose) 15 gm Q15M PRN PO DECREASED GLUCOSE; Start 02/16/18 at 22:30 Glucose (Glutose) 22.5 gm Q15M PRN PO DECREASED GLUCOSE; Start 02/16/18 at 22:30 Dextrose (D50w Syringe) 25 ml Q15M PRN IV DECREASED GLUCOSE; Start 02/16/18 at 22:30 Dextrose (D50w Syringe) 50 ml Q15M PRN IV DECREASED GLUCOSE; Start 02/16/18 at 22:30 Glucagon (Glucagen) 1 mg Q15M PRN IM DECREASED GLUCOSE; Start 02/16/18 at 22:30 Glucose (Glutose) 15 gm Q15M PRN BUCCAL DECREASED GLUCOSE; Start 02/16/18 at 22:30 Miscellaneous Information (Pending Santyl Order For Wound Care) This patient zimmerman... PRN PRN XX Stage 3/4 wound ; Start 02/17/18 at 04:30 Collagenase (Santyl) 1 applic DAILY TOP Last administered on 02/21/18at 09:04; Admin Dose 1 APPLIC; Start 02/17/18 at 09:00 Collagenase (Santyl) 1 applic PRN PRN TOP WHEN SOILED; Start 02/17/18 at 05:00 Heparin Sodium (Porcine) (Heparin (5000 Units/1ml)) 5,000 unit Q12 SC Last administered on 02/22/18at 08:37; Admin Dose 5,000 UNIT; Start 02/17/18 at 21:00 Sodium Hypochlorite (Dakin'S (Dilute 40)) 1 applic DAILY IRR Last administered on 02/22/18at 08:49; Admin Dose 1 APPLIC; Start 02/18/18 at 09:00 Guaifenesin/ Dextromethorphan (Robitussin Dm Liquid Cup) 10 ml Q4H PRN PO cough Last administered on 02/21/18 15:55; Admin Dose 10 ML; Start 02/18/18 at 12:00 Levalbuterol (Xopenex Neb) 1.25 mg Q4H RESP THERAPY HHN Last administered on 02/22/18 12:43; Admin Dose 1.25 MG; Start 02/19/18 at 01:00 Docusate Sodium (Colace) 200 mg BID PO Last administered on 02/22/18 08:36; Admin Dose 200 MG; Start 02/19/18 at 09:00 Polyethylene Glycol (Miralax) 17 gm DAILY PO Last administered on 02/22/18 0 8:36; Admin Dose 17 GM; Start 02/19/18 at 09:00 Insulin Glargine (Lantus) 60 units QHS SC Last administered on 02/21/18 20:40; Admin Dose 60 UNITS; Start 02/19/18 at 21:00 Meropenem/Sodium Chloride 50 ml @ 100 mls/hr Q12 IVPB Last administered on 02/22/18 08:36; Admin Dose 100 MLS/HR; Start 02/19/18 at 15:00 Vancomycin HCl 1.25 gm/Sodium Chloride 250 ml @ 83.333 mls/ hr Q12H IVPB Last administered on 02/22/18 11:40; Admin Dose 83.333 MLS/HR; Start 02/19/18 at 23:00 Ascorbic Acid (Vitamin C) 500 mg DAILY PO Last administered on 02/22/18 08:36; Admin Dose 500 MG; Start 02/20/18 at 16:00 Zinc Sulfate (Zinc Sulfate) 220 mg DAILY PO Last administered on 02/22/18 08:36; Admin Dose 220 MG; Start 02/20/18 at 16:00; Stop 03/03/18 at 15:59 Multivitamins Therapeutic (Theragran) 1 tab DAILY PO Last administered on 02/22/18 08:36; Admin Dose 1 TAB; Start 02/20/18 at 16:00 Glipizide (Glucotrol) 5 mg AC BREAKFAST DINNER PO Last administered on 02/22/18 07:50; Admin Dose 5 MG; Start 02/21/18 at 17:35 Insulin Aspart (Novolog Insulin Pen) 5 unit WITH MEALS SC Last administered on 12/30/18at 11:48; Admin Dose 5 UNIT; Start 02/21/18 at 17:35 VENU NORIEGA NP Feb 22, 2018 15:09
[2018-02-22 15:13] VITALS: BP 144/78; PULSE 98; RESP 17
--- NOTE | 2018-02-22 18:45 | NUR ---
all needs met.no acute events.call light within reach.bed alarm on.he is resting comfortably in bed.
[2018-02-22 20:00] VITALS: BP 110/65; PULSE 97; RESP 21
[2018-02-22] MEDS: GUAIFENESIN/DM 5ML CUP PO PRN (20:44)
[2018-02-22] MEDS: INSULIN GLARGINE [LANTus] (100 UNITS/ML) SYG SC SCH (20:58)
[2018-02-23] MEDS: LEVALBUTEROL (NEB) 1.25 MG/0.5 ML AMP HHN SCH ×6 (00:27→20:59)
[2018-02-23 01:43] VITALS: BP 133/73; PULSE 87; RESP 20
--- NOTE | 2018-02-23 06:47 | NUR ---
End of shift Report: Awake on bed in comfortable position. NO sob. No resp distress. AFEBRILE. s/p Left foot wound debridement, dressing changed as ordered. dry and intact. Left ft elevated with pillows with warm blanket. Denies pain/discomfort. On cont ATB Therapy well-nathan, No A/R noted. No s/sx hypo/hyperglycemia. Lantus 60 units SC given as ordered. Novolog SC per sliding scale give. Provided 1 yogurt to pt as requested. NO acute events overnight. Needs attended and anticipated. Call light within reach. Will continue to monitor pt. Will endorse accordingly.
[2018-02-23 08:00] VITALS: BP 133/69; PULSE 100; RESP 18
[2018-02-23] MEDS: INSULIN ASPART [NOVOLOG] 3 ML PEN SC SCH ×7 (08:00→20:57)
[2018-02-23] MEDS: HEPARIN 5,000 UNIT/1 ML VIAL SC SCH ×2 (08:11→20:54)
[2018-02-23] MEDS: ZINC SULFATE 220 MG CAP PO SCH (08:11)
[2018-02-23] MEDS: POLYETHYLENE GLYCOL 17 GM PACKET PO SCH (08:12)
[2018-02-23] MEDS: MEROPENEM 1 GM/50ML(PMX) 50 ML IVPB SCH ×2 (08:12→20:48)
[2018-02-23] MEDS: MULTIVITAMINS THERAPEUTIC TAB PO SCH (08:12)
[2018-02-23] MEDS: DOCUSATE SODIUM 100 MG CAP PO SCH ×2 (08:12→20:48)
[2018-02-23] MEDS: ASCORBIC ACID 500 MG TAB PO SCH (08:12)
[2018-02-23] MEDS: COLLAGENASE 5 GM (UD JAR) TOP SCH (08:12)
[2018-02-23] MEDS: glipiZIDE 5 MG TAB PO SCH ×2 (08:15→17:17)
[2018-02-23] MEDS: SODIUM HYPOCHLORITE (1/40) 1 APPLIC BTL IRR SCH ×2 (08:26→23:42)
[2018-02-23] MEDS: VANCOMYCIN 1.25 GM in SOD CHLORIDE 0.9% 250 ML IVPB SCH ×2 (12:28→22:41)
--- NOTE | 2018-02-23 12:31 | CONS ---
Date/Time of Note Date/Time of Note DATE: 02/23/18 TIME: 12:25 Assessment/Plan Assessment/Plan Hospital Course ID PROGRESS NOTE CURRENT ABX: DAY # => Vanco IV + Merrem 02/23/18 0512 02/23/18 0512 24H INTERVAL SUMMARY * Resting comfortable, awakens, No new issues, VSS, NAD, no complaints * POD#3 -> s/p 02/20/18 I&D Left Foot -- (-)AFB, (-)Fungal to date * 02/20/18 WOUND CULTURE Preliminary Organism 1 ESCHERICHIA COLI QUANTITY SCANT GROWTH Organism 2 GRAM NEGATIVE RAFITA QUANTITY SCANT GROWTH E COLI M.I.C. RX --------- --- AMPICILLIN >=32 R CEFAZOLIN R CEFOTAXIME S CIPROFLOXACIN <=0.25 S GENTAMICIN <=1 S LEVOFLOXACIN <=0.12 S TOBRAMYCIN <=1 S TRIMETHOPRIM/SULFAMETHOXAZOLE >=320 R MICRO * 02/20/18 left foot I&D see above * 02/19/18 uRINE CX (-) * 02/18/18 BCX (-) * 02/17/18 LEFT FOOT WOUND CX WOUND CULTURE Final Organism 1 ESCHERICHIA COLI QUANTITY 2+ Organism 2 PROTEUS MIRABILIS QUANTITY 2+ Organism 3 ENTEROCOCCUS SPECIES QUANTITY ISOLATED FROM BROTH ONLY Organism 4 KLEBSIELLA PNEUMONIAE QUANTITY 1+ E COLI P. MIRAB ENT SPS M.I.C. RX M.I.C. RX M.I.C. RX --------- --- --------- --- --------- --- AMPICILLIN >=32 R >=32 R <=2 S CEFAZOLIN R CEFOTAXIME S S CIPROFLOXACIN <=0.25 S <=0.25 S GENTAMICIN <=1 S <=1 S LEVOFLOXACIN <=0.12 S <=0.12 S PENICILLIN-G 8 S VANCOMYCIN 2 S TOBRAMYCIN <=1 S <=1 S TRIMETHOPRIM/SULFAMETHOXAZOLE >=320 R <=20 S PIPERACILLIN/TAZOBACTAM K PNEUMO M.I.C. RX --------- --- AMPICILLIN CEFAZOLIN I CEFOTAXIME S CIPROFLOXACIN <=0.25 S GENTAMICIN <=1 S LEVOFLOXACIN <=0.12 S PENICILLIN-G VANCOMYCIN TOBRAMYCIN <=1 S TRIMETHOPRIM/SULFAMETHOXAZOLE <=20 S PIPERACILLIN/TAZOBACTAM <=4 S PHYSICAL EXAMINATION: GENERAL: Afebrile, VSS, HEENT: AT, NC, anicteric NECK: Supple, trach CHEST: Equal chest rise bilaterally, without dyspnea on observation HEART: Pulse RRR ABDOMEN: Soft / NT EXTREMITIES: Warm, dry left foot DSG C/D/I SKIN: No rash, no diaphoresis ID ASSESSMENT 57 yo M admit with: 1. Systemic inflammatory response syndrome 2. Left foot cellulitis/abscess, * No MR evidence of osteomyelitis. * status post I&D POD#3 -> s/p 02/20/18 I&D Left Foot -- (-)AFB, (-)Fungal to date * 02/20/18 WOUND CULTURE Preliminary Organism 1 ESCHERICHIA COLI QUANTITY SCANT GROWTH Organism 2 GRAM NEGATIVE RAFITA QUANTITY SCANT GROWTH 3. Uncontrolled diabetes 4. Obesity (-)MRSA Nares ABX ALLERGIES: ?Ceftriaxone ? INVASIVES: PIV CURRENT ABX: DAY ===> Vanco IV + Merrem s/p ID RECOMMENDATIONS/PLAN: Continue current ABX IV -- 02/20/18 WOUND CULTURE Preliminary Organism 1 ESCHERICHIA COLI QUANTITY SCANT GROWTH Organism 2 GRAM NEGATIVE RAFITA QUANTITY SCANT GROWTH Await final recommendations from DPM -- does DPM recommend PO ABX switch? * Anticipate home with IV Ertapenem pending confirmation of final wound Cx I&D sensitivities Result Diagram: 02/23/18 0502/23/1812 Results 24hrs Laboratory Tests Test 02/22/18 17:34 02/22/18 20:49 02/23/18 02:18 02/23/18 05:12 Bedside Glucose 167 234 H 140 White Blood 11.5 H Count Red Blood Count 3.36 L Hemoglobin 10.3 L Hematocrit 29.9 L Mean Corpuscular 89.0 Volume Mean Corpuscular 30.7 Hemoglobin Mean Corpuscular 34.4 Hemoglobin Jenniffer nt Red Cell 12.2 Distribution Width Platelet Count 412 Mean Platelet 9.3 Volume Immature 2.300 H Granulocytes % Neutrophils % 66.1 Segmented 77 Neutrophils % (Manual) Band Neutrophils 3 % (Manual) Lymphocytes % 22.3 Lymphocytes % 13 L (Manual) Reactive 1 H Lymphocytes % (Manual) Monocytes % 6.4 Monocytes % 2 (Manual) Eosinophils % 2.5 Eosinophils % 1 (Manual) Basophils % 0.4 Basophils % 1 (Manual) Myelocytes % 2 H (Manual) Nucleated Red 0.0 Blood Cells % Immature 0.260 H Granulocytes # Neutrophils # 7.6 H Neutrophils # 8.9 H (Manual) Band Neutrophils 0.3 # Lymphocytes 1.4 (Manual) Lymphocytes # 2.6 Reactive 0.1 H Lymphocytes # Monocytes # 0.7 Monocytes # 0.2 L (Manual) Eosinophils # 0.3 Basophils # 0.1 Basophils # 0.1 H (Manual) Myelocytes # 0.2 H Nucleated Red 0.0 Blood Cells # Platelet NORMAL Estimate Giant Platelets 2 H Anisocytosis 1+ Sodium Level 137 Potassium Level 3.7 Chloride Level 111 H Carbon Dioxide 20 L Level Anion Gap 6 Blood Urea 24 H Nitrogen Creatinine 1.00 Glucose Level 113 Calcium Level 8.6 Phosphorus Level 3.3 Magnesium Level 2.0 Albumin 2.7 L Test 02/23/18 07:50 Bedside Glucose 109 Consultation Date/Type/Reason Admit Date/Time Feb 16, 2018 at 20:38 Initial Consult Date Exam/Review of Systems Vital Signs Vitals Vital Signs Date Temp Pulse Resp B/P (MAP) Pulse Ox O2 O2 Flow FiO2 Time Delivery Rate 02/23/18 94 20 96 21 09:20 02/23/18 98.6 133/69 08:00 (90) 02/22/18 Room Air 15:13 02/19/18 2.0 21:00 Intake and Output 02/22/18 02/22/18 02/23/18 1515:00 23:00 07:00 IntakeIntake Total 800 ml 150 ml 490 ml OutputOutput Total 1300 ml 700 ml BalanceBalance -500 ml 150 ml -210 ml Medications Medications Current Medications IV Flush (NS 3 ml) 3 ml PER PROTOCOL IV ; Start 02/16/18 at 22:30 Ondansetron HCl (Zofran Inj) 4 mg Q6H PRN IV NAUSEA AND/OR VOMITING; Start 02/16/18 at 22:30 Acetaminophen (Tylenol Tab) 650 mg Q6H PRN PO PAIN LEVEL 1-3 OR FEVER Last administered on 02/20/18at 09:29; Admin Dose 650 MG; Start 02/16/18 at 22:30 Acetaminophen/ Hydrocodone Bitart ([place] (5/325)) 1 tab Q6H PRN PO MODERATE PAIN LEVEL 4-6 Last administered on 02/16/18at 22:49; Admin Dose 1 TAB; Start 02/16/18 at 22:30 Docusate Sodium (Colace) 100 mg Q12H PRN PO CONSTIPATION Last administered on 02/19/18at 02:22; Admin Dose 100 MG; Start 02/16/18 at 22:30 Bisacodyl (Dulcolax) 5 mg DAILY PRN PO CONSTIPATION Last administered on 02/19at 02:23; Admin Dose 5 MG; Start 02/16/18 at 22:30 Vancomycin HCl (Vanco Iv Per Pharmacy) VANCOMYCIN PER PHARMACY PER PROTOCOL XX ; Start 02/16/18 at 22:30 Insulin Aspart (Novolog Insulin Pen) NOVOLOG *MILD* ALGORITHM WITH MEALS BEDTIME SC Last administered on 02/22/18at 21:00; Admin Dose 2 UNIT; Start 02/17/18 at 08:00 Miscellaneous Information 1 ea NOTE XX ; Start 02/16/18 at 22:30 Glucose (Glutose) 15 gm Q15M PRN PO DECREASED GLUCOSE; Start 02/16/18 at 22:30 Glucose (Glutose) 22.5 gm Q15M PRN PO DECREASED GLUCOSE; Start 02/16/18 at 22:30 Dextrose (D50w Syringe) 25 ml Q15M PRN IV DECREASED GLUCOSE; Start 02/16/18 at 22:30 Dextrose (D50w Syringe) 50 ml Q15M PRN IV DECREASED GLUCOSE; Start 02/16/18 at 22:30 Glucagon (Glucagen) 1 mg Q15M PRN IM DECREASED GLUCOSE; Start 02/16/18 at 22:30 Glucose (Glutose) 15 gm Q15M PRN BUCCAL DECREASED GLUCOSE; Start 02/16/18 at 22:30 Miscellaneous Information (Pending Santyl Order For Wound Care) This patient zimmerman... PRN PRN XX Stage 3/4 wound ; Start 02/17/18 at 04:30 Collagenase (Santyl) 1 applic DAILY TOP Last administered on 02/23/18 08:12; Admin Dose 1 APPLIC; Start 02/17/18 at 09:00 Collagenase (Santyl) 1 applic PRN PRN TOP WHEN SOILED; Start 02/17/18 at 05:00 Heparin Sodium (Porcine) (Heparin (5000 Units/1ml)) 5,000 unit Q12 SC Last administered on 02/23/18 08:11; Admin Dose 5,000 UNIT; Start 02/17/18 at 2 1:00 Guaifenesin/ Dextromethorphan (Robitussin Dm Liquid Cup) 10 ml Q4H PRN PO cough Last administered on 02/22/18 20:44; Admin Dose 10 ML; Start 02/18/18 at 12:00 Levalbuterol (Xopenex Neb) 1.25 mg Q4H RESP THERAPY HHN Last administered on 02/23/18 09:20; Admin Dose 1.25 MG; Start 02/19/18 at 01:00 Docusate Sodium (Colace) 200 mg BID PO Last administered on 02/23/18 08:12; Admin Dose 200 MG; Start 02/19/18 at 09:00 Polyethylene Glycol (Miralax) 17 gm DAILY PO Last administered on 02/23/18 08:12; Admin Dose 17 GM; Start 02/19/18 at 09:00 Insulin Glargine (Lantus) 60 units QHS SC Last administered on 02/22/18 20:58; Admin Dose 60 UNITS; Start 02/19/18 at 21:00 Meropenem/Sodium Chloride 50 ml @ 100 mls/hr Q12 IVPB Last administered on 02/23/18 08:12; Admin Dose 100 MLS/HR; Start 02/19/18 at 15:00 Vancomycin HCl 1.25 gm/Sodium Chloride 250 ml @ 83.333 mls/ hr Q12H IVPB Last administered on 02/22/18 23:10; Admin Dose 83.333 MLS/HR; Start 02/19/18 at 23:00 Ascorbic Acid (Vitamin C) 500 mg DAILY PO Last administered on 02/23/18 08:12; Admin Dose 500 MG; Start 02/20/18 at 16:00 Zinc Sulfate (Zinc Sulfate) 220 mg DAILY PO Last administered on 02/23/18 08:11; Admin Dose 220 MG; Start 02/20/18 at 16:00; Stop 03/03/18 at 15:59 Multivitamins Therapeutic (Theragran) 1 tab DAILY PO Last administered on 02/23/18 08:12; Admin Dose 1 TAB; Start 02/20/18 at 16:00 Glipizide (Glucotrol) 5 mg AC BREAKFAST DINNER PO Last administered on 02/23/18 08:15; Admin Dose 5 MG; Start 02/21/18 at 17:35 Insulin Aspart (Novolog Insulin Pen) 5 unit WITH MEALS SC Last administered on 02/23/18 08:23; Admin Dose 5 UNIT; Start 02/21/18 at 17:35 Sodium Hypochlorite (Dakin'S (Dilute )) 1 applic BID IRR Last administered on 02/23/18 08:26; Admin Dose 1 APPLIC; Start 02/22/18 at 21:00 VENU NORIEGA NP Feb 23, 2018 12:31
--- NOTE | 2018-02-23 13:01 | PN ---
Date/Time of Note Date/Time of Note DATE: 02/23/18 TIME: 13:00 Objective Vitals Vital Signs Date Temp Pulse Resp B/P (MAP) Pulse Ox O2 O2 Flow FiO2 Time Delivery Rate 02/23/18 94 20 96 21 09:20 02/23/18 98.6 133/69 08:00 (90) 02/22/18 Room Air 15:13 02/19/18 2.0 21:00 Intake and Output 02/22/18 02/22/18 02/23/18 1414:59 22:59 06:59 IntakeIntake Total 550 ml 400 ml 490 ml OutputOutput Total 1300 ml 700 ml BalanceBalance -750 ml 400 ml -210 ml Results Result Diagram: 02/23/18 0512 02/23/18 0512 Medications Medications Current Medications IV Flush (NS 3 ml) 3 ml PER PROTOCOL IV ; Start 02/16/18 at 22:30 Ondansetron HCl (Zofran Inj) 4 mg Q6H PRN IV NAUSEA AND/OR VOMITING; Start 02/16/18 at 22:30 Acetaminophen (Tylenol Tab) 650 mg Q6H PRN PO PAIN LEVEL 1-3 OR FEVER Last administered on 02/20/18at 09:29; Admin Dose 650 MG; Start 02/16/18 at 22:30 Acetaminophen/ Hydrocodone Bitart ([place] (5/325)) 1 tab Q6H PRN PO MODERATE PAIN LEVEL 4-6 Last administered on 02/16/18at 22:49; Admin Dose 1 TAB; Start 02/16/18 at 22:30 Docusate Sodium (Colace) 100 mg Q12H PRN PO CONSTIPATION Last administered on 02/19/18at 02:22; Admin Dose 100 MG; Start 02/16/18 at 22:30 Bisacodyl (Dulcolax) 5 mg DAILY PRN PO CONSTIPATION Last administered on 02/19/18at 02:23; Admin Dose 5 MG; Start 02/16/18 at 22:30 Vancomycin HCl (Vanco Iv Per Pharmacy) VANCOMYCIN PER PHARMACY PER PROTOCOL XX ; Start 02/16/18 at 22:30 Insulin Aspart (Novolog Insulin Pen) NOVOLOG *MILD* ALGORITHM WITH MEALS BEDTIME SC Last administered on 02/23/18at 12:30; Admin Dose 1 UNIT; Start 02/17/18 at 08:00 Miscellaneous Information 1 ea NOTE XX ; Start 02/16/18 at 22:30 Glucose (Glutose) 15 gm Q15M PRN PO DECREASED GLUCOSE; Start 02/16/18 at 22:30 Glucose (Glutose) 22.5 gm Q15M PRN PO DECREASED GLUCOSE; Start 02/16/18 at 22:30 Dextrose (D50w Syringe) 25 ml Q15M PRN IV DECREASED GLUCOSE; Start 02/16/18 at 22:30 Dextrose (D50w Syringe) 50 ml Q15M PRN IV DECREASED GLUCOSE; Start 02/16/18 at 22:30 Glucagon (Glucagen) 1 mg Q15M PRN IM DECREASED GLUCOSE; Start 02/16/18 at 22:30 Glucose (Glutose) 15 gm Q15M PRN BUCCAL DECREASED GLUCOSE; Start 02/16/18 at 22:30 Miscellaneous Information (Pending Santyl Order For Wound Care) This patient zimmerman... PRN PRN XX Stage 3/4 wound ; Start 02/17/18 at 04:30 Collagenase (Santyl) 1 applic DAILY TOP Last administered on 02/23/18at 08:12; Admin Dose 1 APPLIC; Start 02/17/18 at 09:00 Collagenase (Santyl) 1 applic PRN PRN TOP WHEN SOILED; Start 02/17/18 at 05:00 Heparin Sodium (Porcine) (Heparin (5000 Units/1ml)) 5,000 unit Q12 SC Last administered on 02/23/18at 08:11; Admin Dose 5,000 UNIT; Start 02/17/18 at 21:00 Guaifenesin/ Dextromethorphan (Robitussin Dm Liquid Cup) 10 ml Q4H PRN PO cough Last administered on 02/22/18at 20:44; Admin Dose 10 ML; Start 02/18/18 at 12:00 Levalbuterol (Xopenex Neb) 1.25 mg Q4H RESP THERAPY HHN Last administered on 02/23/18at 09:20; Admin Dose 1.25 MG; Start 02/19/18 at 01:00 Docusate Sodium (Colace) 200 mg BID PO Last administered on 02/23/18at 08:12; Admin Dose 200 MG; Start 02/19/18 at 09:00 Polyethylene Glycol (Miralax) 17 gm DAILY PO Last administered on 02/23/18 08:12; Admin Dose 17 GM; Start 02/19/18 at 09:00 Insulin Glargine (Lantus) 60 units QHS SC Last administered on 02/22/18 20:58; Admin Dose 60 UNITS; Start 02/19/18 at 21:00 Meropenem/Sodium Chloride 50 ml @ 100 mls/hr Q12 IVPB Last administered on 02/23/18 08:12; Admin Dose 100 MLS/HR; Start 02/19/18 at 15:00 Vancomycin HCl 1.25 gm/Sodium Chloride 250 ml @ 83.333 mls/ hr Q12H IVPB Last administered on 02/23/18 12:28; Admin Dose 83.333 MLS/HR; Start 02/19/18 at 23:00 Ascorbic Acid (Vitamin C) 500 mg DAILY PO Last administered on 02/23/18 08:12; Admin Dose 500 MG; Start 02/20/18 at 16:00 Zinc Sulfate (Zinc Sulfate) 220 mg DAILY PO Last administered on 02/23/18 08:11; Admin Dose 220 MG; Start 02/20/18 at 16:00; Stop 03/03/18 at 15:59 Multivitamins Therapeutic (Theragran) 1 tab DAILY PO Last administered on 02/23/18 08:12; Admin Dose 1 TAB; Start 02/20/18 at 16:00 Glipizide (Glucotrol) 5 mg AC BREAKFAST DINNER PO Last administered on 02/23/18 08:15; Admin Dose 5 MG; Start 02/21/18 at 17:35 Insulin Aspart (Novolog Insulin Pen) 5 unit WITH MEALS SC Last administered on 02/23/18 12:29; Admin Dose 5 UNIT; Start 02/21/18 at 17:35 Sodium Hypochlorite (Dakin'S (Dilute 140)) 1 applic BID IRR Last administered on 02/23/18 08:26; Admin Dose 1 APPLIC; Start 02/22/18 at 21:00 VTE Prophylaxis Risk score (from Nsg)>0 risk: 1 SCD applied (from Nsg): Yes Lines/Catheters IV Catheter Type: Juarez in Place: No Assessment/Plan Hospital Course Subjective Patient at baseline, no acute complaints, some leg pain but patient states he feels well Objective Physical exam General: Patient is laying in bed and answers questions appropriately Mentation: Patient is alert and oriented 4, Head: Normocephalic atraumatic Eyes: EOMI, pupils reactive to light Neck: Supple, nontender, midline Respiratory: Clear to auscultation bilaterally Cardiovascular: regular rate, no obvious murmurs Gastrointestinal: non-tender to palpation, bowel sounds heard. 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: Moves all extremities spontaneously Skin: Left foot bandaged, CDI Assessment/Plan 1. Left great toe metatarsal wound s/p debridement 02/17 and 02/20 - Podiatry on board and appreciate consultation. Continue offloading left foot while in bed. BID dressing changes - Cultures noted. ID on board and appreciate recommendations. Will need to continue on IV antibiotics after discharge. - Repeat MRI negative for OM - Xray results noted - wound cx noted 2. Diabetes Mellitus - A1 noted - Continued on Lantus 60 units which is his home dose. - Novolog and Glipizide on board as well - on 3 PO medications at home as well - ISS and accuchecks 3. ALESSANDRO- resolved - Renal function appears at baseline - will avoid nephrotoxic agents - Renal US negative for chronic disease or obstruction 4. Sepsis secondary diabetic foot ulcer - Remains afebrile and will need to assess for early OM seen on CT scan - ID on board and appreciate recommendations - WBC trending down and remains afebrile 5. Disposition - Awaiting final antibiotic recommendations from ID and clearance for d/c from p odiatry - Patient worried about going home with IV antibiotics since lives alone, ID to use a single daily dose abx so we can get nursing to do it. JANELL YOO Feb 23, 2018 13:00
[2018-02-23 14:00] VITALS: BP 129/70; PULSE 86; RESP 18
--- NOTE | 2018-02-23 14:54 | NUR ---
PT NOTE Therapy day number 3 Subjective Denies pain Pain Scale FACES Pain Intensity 0 (0-10) Patient Stated Goal for Pain Relief 0 (0-10) Pain Level Comment denies pain Pre Treatment Vital Signs Stable Yes Exercise Assessment Label Bilat Lower Extremity Exercise Type Active ROM Additional Exercise Comments BLE heels slides,AP Exercise Start Time 13:55 Exercise End Time 14:05 Total Exercise Time 10 min (8-127) Transfer Training Start Time 14:05 Supine to Sit Supervised Transfer Sit to Stand Ability Stand by Assist Bed Mobility Sit to Supine Supervised Sitting Tolerance 15 min Additional Mobility Comments FWW STS, pt will benefit from post-op shoe for OOB Transfer Training End Time 14:20 Total Transfer Training Time 15 min (8-127) Gait Training Start Time 14:20 Gait Assist Levels Stand by Assist Assistive Devices Front Wheel Walker Ambulation Distance 200 feet Additional Gait Comments antalgic, steady step to, flexed/increased up trap activ/improved w/ VC Gait Training End Time 14:33 Total Gait Training Treatment Time 13 min (8-127) Weight Bearing Assessment Label Left Lower Extremity Weight Bearing Status Weight Bearing as Nathan Static Sitting Balance Good Dynamic Sitting Balance Good Standing Static Balance Fair plus Dynamic Standing Balance Fair plus Additional Balance Assessments Comments with FWW Safety Judgement Fair Activity Tolerance Fair Equipment Present IV pump Post Treatment Pain Intensity 0 0-10 Additional Post Treatment Comment See Below Total Treament Time 38 min (8-127) Total Minutes 38 Total Units 3 PT Technical Record Comment PT NOTE S: Pt agreeable to PT, cleared for PT per FERNANDA Valenzuela O: Pt received semifowler in bed, alert and oriented, in no apparent distress. Performed thera ex , transfer tr and gait trainng per tech record above with supervised to SBA using FWW. Pt c/o "little "dizzy with sup>sit and sit to stand, resolved with BTB. Pt ed for sitting up during meals to maintain tolerance for upright positioning. Discussed post-op shoe for LLE with FERNANDA Valeznuela and COLBY Jones, COLBY Jones ordered from central supply. Pt BTB and postioned for comfort post-tx with call light and needs in reach, bed alarm armed, pt with LLE wedge for elevation. Pt ed for LLE elevated throughout day and during PM. A: Pt nathan tx fairly, limited by fatigue, denies pain with gait tr. P: Cont POC
--- NOTE | 2018-02-23 18:29 | NUR ---
POD #3 left foot incision/ debridement w/ routine wound dressing changed done. On antibiotic tx IVPB for left foot wound infection no ad verse side effects fluids encouraged. Chem blood sugar check ranges 109-198 no s/s of hypo/hyperglycemia, no sob , no acute distress and VS within range. Will continue POC.
[2018-02-23 20:00] VITALS: BP 125/74; PULSE 90; RESP 18
[2018-02-23] MEDS: INSULIN GLARGINE [LANTus] (100 UNITS/ML) SYG SC SCH (20:56)
[2018-02-24] MEDS: LEVALBUTEROL (NEB) 1.25 MG/0.5 ML AMP HHN SCH ×6 (00:36→20:43)
[2018-02-24 01:30] VITALS: BP 130/79; PULSE 95; RESP 20
--- NOTE | 2018-02-24 06:21 | NUR ---
End of shift Report: Sleeping on bed. Afebrile. No sob. No resp distress. Breathing treatment as ordered nathan well. S/P left ft wound debridement (02-20-18), dressing done as ordered, dry and intact. Denies pain. Lantus 60 units SQ administered last night, Novolog 2 unit SC given per sliding scale. Needs attended and anticipated. Awaiting final recommendation from ID, awaiting final wound culture and sensitivity and clearance for DC from podiatry.Call light within reach. Will endorse accordingly.
[2018-02-24] MEDS: COLLAGENASE 5 GM (UD JAR) TOP SCH (08:10)
[2018-02-24] MEDS: ZINC SULFATE 220 MG CAP PO SCH (08:10)
[2018-02-24] MEDS: ASCORBIC ACID 500 MG TAB PO SCH (08:10)
[2018-02-24] MEDS: DOCUSATE SODIUM 100 MG CAP PO SCH ×2 (08:10→20:47)
[2018-02-24] MEDS: MEROPENEM 1 GM/50ML(PMX) 50 ML IVPB SCH ×3 (08:11→20:47)
[2018-02-24] MEDS: POLYETHYLENE GLYCOL 17 GM PACKET PO SCH ×2 (08:11→08:24)
[2018-02-24] MEDS: glipiZIDE 5 MG TAB PO SCH ×2 (08:11→17:18)
[2018-02-24] MEDS: MULTIVITAMINS THERAPEUTIC TAB PO SCH (08:11)
[2018-02-24] MEDS: INSULIN ASPART [NOVOLOG] 3 ML PEN SC SCH ×7 (08:12→21:21)
[2018-02-24] MEDS: HEPARIN 5,000 UNIT/1 ML VIAL SC SCH ×2 (08:13→21:18)
[2018-02-24] MEDS: SODIUM HYPOCHLORITE (1/40) 1 APPLIC BTL IRR SCH ×2 (08:15→21:22)
[2018-02-24 08:26] VITALS: BP 123/75; PULSE 89; RESP 19
[2018-02-24] MEDS: VANCOMYCIN 1.25 GM in SOD CHLORIDE 0.9% 250 ML IVPB SCH ×2 (11:43→23:22)
[2018-02-24] MEDS: ACETAMINOPHEN 325 MG TAB PO PRN (12:03)
--- NOTE | 2018-02-24 12:51 | PN ---
Date/Time of Note Date/Time of Note DATE: 02/24/18 TIME: 12:51 Objective Vitals Vital Signs Date Temp Pulse Resp B/P (MAP) Pulse Ox O2 O2 Flow FiO2 Time Delivery Rate 02/24/18 98.0 12:03 02/24/18 92 18 97 21 09:33 02/24/18 123/75 08:26 (91) 02/22/18 Room Air 15:13 Intake and Output 02/23/18 02/23/18 02/24/18 1414:59 22:59 06:59 IntakeIntake Total 400 ml 820 ml 1050 ml OutputOutput Total 300 ml 300 ml 2500 ml BalanceBalance 100 ml 520 ml -1450 ml Results Result Diagram: 02/24/18 0630 02/24/18 0630 Medications Medications Current Medications IV Flush (NS 3 ml) 3 ml PER PROTOCOL IV ; Start 02/16/18 at 22:30 Ondansetron HCl (Zofran Inj) 4 mg Q6H PRN IV NAUSEA AND/OR VOMITING; Start 02/16/18 at 22:30 Acetaminophen (Tylenol Tab) 650 mg Q6H PRN PO PAIN LEVEL 1-3 OR FEVER Last adm inistered on 02/24/18at 12:03; Admin Dose 650 MG; Start 02/16/18 at 22:30 Acetaminophen/ Hydrocodone Bitart ([place] (5/325)) 1 tab Q6H PRN PO MODERATE PAIN LEVEL 4-6 Last administered on 02/16/18at 22:49; Admin Dose 1 TAB; Start 02/16/18 at 22:30 Docusate Sodium (Colace) 100 mg Q12H PRN PO CONSTIPATION Last administered on 02/19/18at 02:22; Admin Dose 100 MG; Start 02/16/18 at 22:30 Bisacodyl (Dulcolax) 5 mg DAILY PRN PO CONSTIPATION Last administered on 02/19/18at 02:23; Admin Dose 5 MG; Start 02/16/18 at 22:30 Vancomycin HCl (Vanco Iv Per Pharmacy) VANCOMYCIN PER PHARMACY PER PROTOCOL XX ; Start 02/16/18 at 22:30 Insulin Aspart (Novolog Insulin Pen) NOVOLOG *MILD* ALGORITHM WITH MEALS BEDTIME SC Last administered on 02/24/18at 11:54; Admin Dose 3 UNIT; Start 02/17/18 at 08:00 Miscellaneous Information 1 ea NOTE XX ; Start 02/16/18 at 22:30 Glucose (Glutose) 15 gm Q15M PRN PO DECREASED GLUCOSE; Start 02/16/18 at 22:30 Glucose (Glutose) 22.5 gm Q15M PRN PO DECREASED GLUCOSE; Start 02/16/18 at 22:30 Dextrose (D50w Syringe) 25 ml Q15M PRN IV DECREASED GLUCOSE; Start 02/16/18 at 22:30 Dextrose (D50w Syringe) 50 ml Q15M PRN IV DECREASED GLUCOSE; Start 02/16/18 at 22:30 Glucagon (Glucagen) 1 mg Q15M PRN IM DECREASED GLUCOSE; Start 02/16/18 at 22:30 Glucose (Glutose) 15 gm Q15M PRN BUCCAL DECREASED GLUCOSE; Start 02/16/18 at 22:30 Miscellaneous Information (Pending Santyl Order For Wound Care) This patient zimmerman... PRN PRN XX Stage 3/4 wound ; Start 02/17/18 at 04:30 Collagenase (Santyl) 1 applic DAILY TOP Last administered on 02/24/18 08:10; Admin Dose 1 APPLIC; Start 02/17/18 at 09:00 Collagenase (Santyl) 1 applic PRN PRN TOP WHEN SOILED; Start 02/17/18 at 05:00 Heparin Sodium (Porcine) (Heparin (5000 Units/1ml)) 5,000 unit Q12 SC Last administered on 02/24/18 08:13; Admin Dose 5,000 UNIT; Start 02/17/18 at 21:00 Guaifenesin/ Dextromethorphan (Robitussin Dm Liquid Cup) 10 ml Q4H PRN PO cough Last administered on 02/22/18at 20:44; Admin Dose 10 ML; Start 02/18/18 at 12:00 Levalbuterol (Xopenex Neb) 1.25 mg Q4H RESP THERAPY HHN Last administered on 02/24/18 09:32; Admin Dose 1.25 MG; Start 02/19/18 at 01:00 Docusate Sodium (Colace) 200 mg BID PO Last administered on 02/24/18 08:10; Admin Dose 200 MG; Start 02/19/18 at 09:00 Polyethylene Glycol (Miralax) 17 gm DAILY PO Last administered on 02/23/18 08:12; Admin Dose 17 GM; Start 02/19/18 at 09:00 Insulin Glargine (Lantus) 60 units QHS SC Last administered on 02/23/18 20:56; Admin Dose 60 UNITS; Start 02/19/18 at 21:00 Meropenem/Sodium Chloride 50 ml @ 100 mls/hr Q12 IVPB Last administered on 02/24/18 10:02; Admin Dose 100 MLS/HR; Start 02/19/18 at 15:00 Vancomycin HCl 1.25 gm/Sodium Chloride 250 ml @ 83.333 mls/ hr Q12H IVPB Last administered on 02/24/18 11:43; Admin Dose 83.333 MLS/HR; Start 02/19/18 at 23:00 Ascorbic Acid (Vitamin C) 500 mg DAILY PO Last administered on 02/24/18 08:10; Admin Dose 500 MG; Start 02/20/18 at 16:00 Zinc Sulfate (Zinc Sulfate) 220 mg DAILY PO Last administered on 02/24/18 08:10; Admin Dose 220 MG; Start 02/20/18 at 16:00; Stop 03/03/18 at 15:59 Multivitamins Therapeutic (Theragran) 1 tab DAILY PO Last administered on 08:11; Admin Dose 1 TAB; Start 02/20/18 at 16:00 Glipizide (Glucotrol) 5 mg AC BREAKFAST DINNER PO Last administered on 02/24/18 08:11; Admin Dose 5 MG; Start 02/21/18 at 17:35 Sodium Hypochlorite (Dakin'S (Dilute )) 1 applic BID IRR Last administered on 02/24/18 08:15; Admin Dose 1 APPLIC; Start 02/22/18 at 21:00 Insulin Aspart (Novolog Insulin Pen) 7 unit WITH MEALS SC Last administered on 02/24/18 11:53; Admin Dose 7 UNIT; Start 02/24/18 at 11:30 VTE Prophylaxis Risk score (from Nsg)>0 risk: 3 SCD applied (from Nsg): Yes Lines/Catheters IV Catheter Type: Juarez in Place: No Assessment/Plan Hospital Course Subjective Patient at baseline, no acute complaints, some leg pain but patient states he feels well Objective Physical exam General: Patient is laying in bed and answers questions appropriately Mentation: Patient is alert and oriented 4, Head: Normocephalic atraumatic Eyes: EOMI, pupils reactive to light Neck: Supple, nontender, midline Respiratory: Clear to auscultation bilaterally Cardiovascular: regular rate, no obvious murmurs Gastrointestinal: non-tender to palpation, bowel sounds heard. 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: Moves all extremities spontaneously Skin: Left foot bandaged, CDI Assessment/Plan 1. Left great toe metatarsal wound s/p debridement 02/17 and 02/20 - Podiatry on board and appreciate consultation. Continue offloading left foot while in bed. BID dressing changes - Cultures noted. ID on board and appreciate recommendations. Will need to continue on IV antibiotics after discharge. - Repeat MRI negative for OM - Xray results noted - wound cx noted 2. Diabetes Mellitus - A1 noted - Continued on Lantus 60 units which is his home dose. - Novolog and Glipizide on board as well - on 3 PO medications at home as well - ISS and accuchecks 3. ALESSANDRO- resolved - Renal function appears at baseline - will avoid nephrotoxic agents - Renal US negative for chronic disease or obstruction 4. Sepsis secondary diabetic foot ulcer - Remains afebrile and will need to assess for early OM seen on CT scan - ID on board and appreciate recommendations - WBC trending down and remains afebrile 5. Disposition - Awaiting final antibiotic recommendations from ID and clearance for d/c from podiatry - Patient worried about going home with IV antibiotics since lives alone, ID to use a single daily dose abx so we can get nursing to do it. JANELL YOO Feb 24, 2018 12:51
--- NOTE | 2018-02-24 14:40 | NUR ---
PT NOTE [facility] Patient: You Santana : 1960 Age/Sex: 57/M Unit#: [id number] Room/Bed: 225A User: Lauren Delgadillo PTA Date: 02/24/18 14:15 Type: PT Technical Record Therapy day number 4 Subjective Denies pain Pain Scale NUMERIC Pain Intensity 0 (0-10) Patient Stated Goal for Pain Relief 0 (0-10) Pain Level Comment denied pain Transfer Training Start Time 14:15 Supine to Sit Supervised Transfer Sit to Stand Ability Supervised Additional Mobility Comments HOB elevated, STS with FWW, left sitting in shower room Transfer Training End Time 14:25 Total Transfer Training Time 10 min (8-127) Patient uses wheelchair Not Applicable Gait Training Start Time 14:26 Gait Assist Levels Stand by Assist Assistive Devices Front Wheel Walker Ambulation Distance 200 feet Additional Gait Comments reciprocal gait, slight antalgic, VCs for forward gaze Gait Training End Time 14:40 Total Gait Training Treatment Time 14 min (8-127) Weight Bearing Assessment Label Left Lower Extremity Weight Bearing Status Weight Bearing as Leann Static Sitting Balance Good Dynamic Sitting Balance Good Standing Static Balance Good Dynamic Standing Balance Fair plus Additional Balance Assessments Comments with FWW Safety Judgement Fair Activity Tolerance Good Equipment Present IV pump Additional Equipment Present post op shoe Post Treatment Pain Intensity 0 0-10 Additional Post Treatment Comment see PT note Total Treament Time 24 min (8-127) Total Minutes 24 Total Units 2 PT Technical Record Comment PT NOTE S: "I want to take a shower." Agreed to skilled PT. Informed RN of pt request; RECEIVING TELLER notified. Cleared by FERNANDA Henderson. O: Receieved awake in L sidelying. See tech record for assist levels. Transfered to EOB with HOB elevated, used BR. Dep A to miguel post op shoe. STS with FWW. Gait training with FWW, reciprocal gait, slight antalgic, downward gaze with VCs to encourage fwd gaze, no LOB. Assisted to bench in shower room; informed RECEIVING TELLER pt ready for shower. Left in shower room with RECEIVING TELLER at side. A: Pt leann tx well. No complaints of pain throughout. Improved STS transfer assist level. P: Continue with POC.
[2018-02-24 15:02] VITALS: BP 113/55; PULSE 89; RESP 18
[2018-02-24] MEDS: GUAIFENESIN/DM 5ML CUP PO PRN (16:34)
--- NOTE | 2018-02-24 18:24 | CONS ---
Date/Time of Note Date/Time of Note DATE: 02/24/18 TIME: 18:16 Assessment/Plan Assessment/Plan Hospital Course ID PROGRESS NOTE CURRENT ABX: DAY # => Vanco IV + Merrem 02/24/18 0630 02/24/18 0630 24H INTERVAL SUMMARY * Resting comfortable, awakens, No new issues, VSS, NAD, no complaints * POD#4-> s/p 02/20/18 I&D Left Foot -- (-)AFB, (-)Fungal to date * 02/20/18 WOUND CULTURE WOUND CULTURE Final Organism 1 ESCHERICHIA COLI QUANTITY SCANT GROWTH Organism 2 PROTEUS MIRABILIS QUANTITY SCANT GROWTH E COLI P. MIRAB M.I.C. RX M.I.C. RX --------- --- --------- --- AMPICILLIN >=32 R >=32 R CEFAZOLIN R I CEFOTAXIME S S CIPROFLOXACIN <=0.25 S <=0.25 S GENTAMICIN <=1 S <=1 S LEVOFLOXACIN <=0.12 S <=0.12 S TOBRAMYCIN <=1 S <=1 S TRIMETHOPRIM/SULFAMETHOXAZOLE >=320 R <=20 S MICRO * 02/20/18 left foot I&D see above * 02/19/18 uRINE CX (-) * 02/18/18 BCX (-) * 02/17/18 LEFT FOOT WOUND CX WOUND CULTURE Final Organism 1 ESCHERICHIA COLI QUANTITY 2+ Organism 2 PROTEUS MIRABILIS QUANTITY 2+ Organism 3 ENTEROCOCCUS SPECIES QUANTITY ISOLATED FROM BROTH ONLY Organism 4 KLEBSIELLA PNEUMONIAE QUANTITY 1+ E COLI P. MIRAB ENT SPS M.I.C. RX M.I.C. RX M.I.C. RX --------- --- --------- --- --------- --- AMPICILLIN >=32 R >=32 R <=2 S CEFAZOLIN R CEFOTAXIME S S CIPROFLOXACIN <=0.25 S <=0.25 S GENTAMICIN <=1 S <=1 S LEVOFLOXACIN <=0.12 S <=0.12 S PENICILLIN-G 8 S VANCOMYCIN 2 S TOBRAMYCIN <=1 S <=1 S TRIMETHOPRIM/SULFAMETHOXAZOLE >=320 R <=20 S PIPERACILLIN/TAZOBACTAM K PNEUMO M.I.C. RX --------- --- AMPICILLIN CEFAZOLIN I CEFOTAXIME S CIPROFLOXACIN <=0.25 S GENTAMICIN <=1 S LEVOFLOXACIN <=0.12 S PENICILLIN-G VANCOMYCIN TOBRAMYCIN <=1 S TRIMETHOPRIM/SULFAMETHOXAZOLE <=20 S PIPERACILLIN/TAZOBACTAM <=4 S PHYSICAL EXAMINATION: GENERAL: Afebrile, VSS, HEENT: AT, NC, anicteric NECK: Supple, trach CHEST: Equal chest rise bilaterally, without dyspnea on observation HEART: Pulse RRR ABDOMEN: Soft / NT EXTREMITIES: Warm, dry left foot DSG C/D/I SKIN: No rash, no diaphoresis ID ASSESSMENT 57 yo M admit with: 1. Systemic inflammatory response syndrome 2. Left foot cellulitis/abscess, * No MR evidence of osteomyelitis. * status post I&D POD#4-> s/p 02/20/18 I&D Left Foot -- (-)AFB, (-)Fungal to date * 02/20/18 WOUND CULTURE WOUND CULTURE Final Organism 1 ESCHERICHIA COLI QUANTITY SCANT GROWTH Organism 2 PROTEUS MIRABILIS QUANTITY SCANT GROWTH 3. Uncontrolled diabetes 4. Obesity (-)MRSA Nares ABX ALLERGIES: ?Ceftriaxone ? INVASIVES: PIV CURRENT ABX: DAY ===> Vanco IV + Merrem s/p ID RECOMMENDATIONS/PLAN: 1. DC Vanco IV -- DC Merrem when cleared for DC 2. Start Ertapenem to be decided by primary per DC plan - Give single dose Ertapenem tomorrow prior to DC home FINAL DISCHARGE TO IV ABX RECOMMENDATIONS * May DC home to wound care and Ertapenem 1 GM IVPB daily until last day 03/12/18 -- to complete 21 days from debridement * Must follow up with OP APC Result Diagram: 02/24/18 0630 02/24/18 0630 Results 24hrs Laboratory Tests Test 02/23/18 20:47 02/24/18 02:15 02/24/18 06:30 02/24/18 07:54 Bedside Glucose 239 H 280 H 195 White Blood Count 11.4 H Red Blood Count 3.28 L Hemoglobin 10.1 L Hematocrit 29.7 L Mean Corpuscular 90.5 Volume Mean Corpuscular 30.8 Hemoglobin Mean Corpuscular 34.0 Hemoglobin Concent Red Cell Distribution 12.1 Width Platelet Count 436 H Mean Platelet Volume 9.3 Immature Granulocytes 3.500 H % Neutrophils % 65.0 Lymphocytes % 21.4 Monocytes % 6.2 Eosinophils % 3.4 Basophils % 0.5 Nucleated Red Blood 0.0 Cells % Immature Granulocytes 0.400 H # Neutrophils # 7.4 Lymphocytes # 2.4 Monocytes # 0.7 Eosinophils # 0.4 Basophils # 0.1 Nucleated Red Blood 0.0 Cells # Sodium Level 135 Potassium Level 3.8 Chloride Level 109 Carbon Dioxide Level 19 L Anion Gap 7 Blood Urea Nitrogen 28 H Creatinine 0.95 Est Glomerular Filtrat > 60 Rate mL/min Glucose Level 200 Calcium Level 8.7 Phosphorus Level 3.6 Magnesium Level 2.0 Test 02/24/18 11:47 02/24/18 17:16 Bedside Glucose 245 H 223 H Consultation Date/Type/Reason Admit Date/Time Feb 16, 2018 at 20:38 Initial Consult Date Exam/Review of Systems Vital Signs Vitals Vital Signs Date Temp Pulse Resp B/P (MAP) Pulse Ox O2 O2 Flow FiO2 Time Delivery Rate 02/24/18 85 20 93 21 17:45 02/24/18 98.2 113/55 15:02 (74) 02/22/18 Room Air 15:13 Intake and Output 02/23/18 02/23/18 02/24/18 1515:00 23:00 07:00 IntakeIntake Total 400 ml 820 ml 1050 ml OutputOutput Total 300 ml 300 ml 2500 ml BalanceBalance 100 ml 520 ml -1450 ml Medications Medications Current Medications IV Flush (NS 3 ml) 3 ml PER PROTOCOL IV ; Start 02/16/18 at 22:30 Ondansetron HCl (Zofran Inj) 4 mg Q6H PRN IV NAUSEA AND/OR VOMITING; Start 02/16/18 at 22:30 Acetaminophen (Tylenol Tab) 650 mg Q6H PRN PO PAIN LEVEL 1-3 OR FEVER Last administered on 02/24/18 12:03; Admin Dose 650 MG; Start 02/16/18 at 22:30 Acetaminophen/ Hydrocodone Bitart ([place] (5/325)) 1 tab Q6H PRN PO MODERATE PAIN LEVEL 4-6 Last administered on 02/16/18at 22:49; Admin Dose 1 TAB; Start 02/16/18 at 22:30 Docusate Sodium (Colace) 100 mg Q12H PRN PO CONSTIPATION Last administered on 02/19/18at 02:22; Admin Dose 100 MG; Start 02/16/18 at 22:30 Bisacodyl (Dulcolax) 5 mg DAILY PRN PO CONSTIPATION Last administered on 02/19/18at 02:23; Admin Dose 5 MG; Start 02/16/18 at 22:30 Vancomycin HCl (Vanco Iv Per Pharmacy) VANCOMYCIN PER PHARMACY PER PROTOCOL XX ; Start 02/16/18 at 22:30 Insulin Aspart (Novolog Insulin Pen) NOVOLOG *MILD* ALGORITHM WITH MEALS BEDTIME SC Last administered on 02/24/18 17:20; Admin Dose 3 UNIT; Start 02/17/18 at 08:00 Miscellaneous Information 1 ea NOTE XX ; Start 02/16/18 at 22:30 Glucose (Glutose) 15 gm Q15M PRN PO DECREASED GLUCOSE; Start 02/16/18 at 22:30 Glucose (Glutose) 22.5 gm Q15M PRN PO DECREASED GLUCOSE; Start 02/16/18 at 22:30 Dextrose (D50w Syringe) 25 ml Q15M PRN IV DECREASED GLUCOSE; Start 02/16/18 at 22:30 Dextrose (D50w Syringe) 50 ml Q15M PRN IV DECREASED GLUCOSE; Start 02/16/18 at 22:30 Glucagon (Glucagen) 1 mg Q15M PRN IM DECREASED GLUCOSE; Start 02/16/18 at 22:30 Glucose (Glutose) 15 gm Q15M PRN BUCCAL DECREASED GLUCOSE; Start 02/16/18 at 22:30 Miscellaneous Information (Pending Santyl Order For Wound Care) This patient zimmerman... PRN PRN XX Stage 3/4 wound ; Start 02/17/18 at 04:30 Collagenase (Santyl) 1 applic DAILY TOP Last administered on 02/24/18 08:10; Admin Dose 1 APPLIC; Start 02/17/18 at 09:00 Collagenase (Santyl) 1 applic PRN PRN TOP WHEN SOILED; Start 02/17/18 at 05:00 Heparin Sodium (Porcine) (Heparin (5000 Units/1ml)) 5,000 unit Q12 SC Last administered on 02/24/18 08:13; Admin Dose 5,000 UNIT; Start 02/17/18 at 21:00 Guaifenesin/ Dextromethorphan (Robitussin Dm Liquid Cup) 10 ml Q4H PRN PO cough Last administered on 02/24/18 16:34; Admin Dose 10 ML; Start 02/18/18 at 12:00 Levalbuterol (Xopenex Neb) 1.25 mg Q4H RESP THERAPY HHN Last administered on 02/24/18 17:41; Admin Dose 1.25 MG; Start 02/19/18 at 01:00 Docusate Sodium (Colace) 200 mg BID PO Last administered on 02/24/18 08:10; Admin Dose 200 MG; Start 02/19/18 at 09:00 Polyethylene Glycol (Miralax) 17 gm DAILY PO Last administered on 02/23/18 08:12; Admin Dose 17 GM; Start 02/19/18 at 09:00 Insulin Glargine (Lantus) 60 units QHS SC Last administered on 02/23/18 20:56; Admin Dose 60 UNITS; Start 02/19/18 at 21:00 Meropenem/Sodium Chloride 50 ml @ 100 mls/hr Q12 IVPB Last administered on 02/24/18 10:02; Admin Dose 100 MLS/HR; Start 02/19/18 at 15:00 Vancomycin HCl 1.25 gm/Sodium Chloride 250 ml @ 83.333 mls/ hr Q12H IVPB Last administered on 02/24/18 11:43; Admin Dose 83.333 MLS/HR; Start 02/19/18 at 23:00 Ascorbic Acid (Vitamin C) 500 mg DAILY PO Last administered on 02/24/18 08:10; Admin Dose 500 MG; Start 02/20/18 at 16:00 Zinc Sulfate (Zinc Sulfate) 220 mg DAILY PO Last administered on 02/24/18 08:10; Admin Dose 220 MG; Start 12/28/18 at 16:00; Stop 03/03/18 at 15:59 Multivitamins Therapeutic (Theragran) 1 tab DAILY PO Last administered on 02/24/18at 08:11; Admin Dose 1 TAB; Start 02/20/18 at 16:00 Glipizide (Glucotrol) 5 mg AC BREAKFAST DINNER PO Last administered on 02/24/18 17:18; Admin Dose 5 MG; Start 02/21/18 at 17:35 Sodium Hypochlorite (Dakin'S (Dilute )) 1 applic BID IRR Last administered on 02/24/18at 08:15; Admin Dose 1 APPLIC; Start 02/22/18 at 21:00 Insulin Aspart (Novolog Insulin Pen) 7 unit WITH MEALS SC Last administered on 02/24/18 17:20; Admin Dose 7 UNIT; Start 02/24/18 at 11:30 VENU NORIEGA NP Feb 24, 2018 18:24
--- NOTE | 2018-02-24 18:47 | NUR ---
NURSE NOTES: patient alert and oriented x 4, able to make needs known remained stable throughout the shift with no acute changes noted. No SOB or distress. Medicated with Robitussin for cough PRN as ordered, breathing treatment provided by RT as scheduled. Performed blood sugar checks as scheduled. All due medications were given, tolerated well. Wound care treatment done as ordered. Assessed and reassessed for pain, medicated with Tylenol for mild pain, stated relief. Safety precaution observed, hourly rounding done, bed alarm and bed brakes on for safety. call light and telephone within reach at all times. will continue to monitor. Will endorse accordingly to next shift for continuity of care.
[2018-02-24 20:00] VITALS: BP 108/56; PULSE 94; RESP 18
--- NOTE | 2018-02-24 20:00 | NUR ---
DR. WAITE CAME AND DID THE LEFT FOOT DRESSING CHANGE DONE . PATIENT TOLERATED WELL . DENIES ANY PAIN / DISCOMFORT . WILL CONTINUE TO MONITOR .
[2018-02-24] MEDS: INSULIN GLARGINE [LANTus] (100 UNITS/ML) SYG SC SCH (21:18)
[2018-02-25] MEDS: LEVALBUTEROL (NEB) 1.25 MG/0.5 ML AMP HHN SCH ×6 (00:20→20:18)
[2018-02-25 02:00] VITALS: BP 122/66; PULSE 93; RESP 19
[2018-02-25] MEDS: INSULIN ASPART [NOVOLOG] 3 ML PEN SC SCH ×7 (08:04→20:39)
[2018-02-25] MEDS: HEPARIN 5,000 UNIT/1 ML VIAL SC SCH ×2 (08:06→20:38)
[2018-02-25] MEDS: DOCUSATE SODIUM 100 MG CAP PO SCH ×2 (08:10→20:47)
[2018-02-25] MEDS: ASCORBIC ACID 500 MG TAB PO SCH (08:10)
[2018-02-25] MEDS: ZINC SULFATE 220 MG CAP PO SCH (08:11)
[2018-02-25] MEDS: MULTIVITAMINS THERAPEUTIC TAB PO SCH (08:11)
[2018-02-25] MEDS: glipiZIDE 5 MG TAB PO SCH ×2 (08:11→17:15)
[2018-02-25] MEDS: SODIUM HYPOCHLORITE (1/40) 1 APPLIC BTL IRR SCH ×2 (08:11→20:37)
[2018-02-25] MEDS: POLYETHYLENE GLYCOL 17 GM PACKET PO SCH (08:11)
[2018-02-25] MEDS: COLLAGENASE 5 GM (UD JAR) TOP SCH (08:11)
[2018-02-25] MEDS: MEROPENEM 1 GM/50ML(PMX) 50 ML IVPB SCH (08:12)
[2018-02-25 08:13] VITALS: BP 106/53; PULSE 77; RESP 18
[2018-02-25] MEDS ORDERED: LIDOCAINE 1% (MPF) 5 ML VIAL SC ONE (09:00)
--- NOTE | 2018-02-25 10:00 | CONS ---
Date/Time of Note Date/Time of Note DATE: 02/25/18 TIME: 09:53 Consult Date/Type/Reason Admit Date/Time Feb 16, 2018 at 20:38 Initial Consult Date Type of Consultation: Podiatry Reason for Consultation 1) Left foot diabetic ulcer 2) Cellulitis 3) DM2 with peripheral neuropathy 4) LLE edema 5) Obesity Subjective Pt s/p debridement- has opening packing of ulceration. Ecoli/ Proteus. No pain reported. On Ertapenem. Color toe improving. Objective Vital Signs Date Temp Pulse Resp B/P (MAP) Pulse Ox O2 O2 Flow FiO2 Time Delivery Rate 02/25/18 98.4 77 18 106/53 95 Room Air 08:13 (70) 02/24/18 21 20:44 Intake and Output 02/24/18 02/24/18 02/25/18 1515:00 23:00 07:00 IntakeIntake Total 540 ml 490 ml 250 ml OutputOutput Total 400 ml 1275 ml BalanceBalance 540 ml 90 ml -1025 ml Results/Medications Result Diagram: 02/25/18 0550 02/25/18 0550 Results 24 hrs Laboratory Tests Test 02/24/18 11:47 02/24/18 17:16 02/24/18 21:15 02/25/18 05:50 Bedside Glucose 245 H 223 H 271 H White Blood Count 11.4 H Red Blood Count 3.38 L Hemoglobin 10.3 L Hematocrit 30.3 L Mean Corpuscular Volume 89.6 Mean Corpuscular 30.5 Hemoglobin Mean Corpuscular 34.0 Hemoglobin Concent Red Cell Distribution 12.0 Width Platelet Count 483 H Mean Platelet Volume 9.5 Immature Granulocytes % 3.700 H Neutrophils % 65.9 Lymphocytes % 20.0 Monocytes % 6.3 Eosinophils % 3.6 Basophils % 0.5 Nucleated Red Blood 0.0 Cells % Immature Granulocytes # 0.420 H Neutrophils # 7.5 Lymphocytes # 2.3 Monocytes # 0.7 Eosinophils # 0.4 Basophils # 0.1 Nucleated Red Blood 0.0 Cells # Sodium Level 138 Potassium Level 4.3 Chloride Level 108 Carbon Dioxide Level 19 L Anion Gap 11 Blood Urea Nitrogen 30 H Creatinine 1.07 Est Glomerular Filtrat > 60 Rate mL/min Glucose Level 266 H Calcium Level 9.0 Phosphorus Level 3.7 Magnesium Level 2.0 Test 02/25/18 07:59 Bedside Glucose 220 Medications Current Medications IV Flush (NS 3 ml) 3 ml PER PROTOCOL IV ; Start 02/16/18 at 22:30 Ondansetron HCl (Zofran Inj) 4 mg Q6H PRN IV NAUSEA AND/OR VOMITING; Start 02/16/18 at 22:30 Acetaminophen (Tylenol Tab) 650 mg Q6H PRN PO PAIN LEVEL 1-3 OR FEVER Last administered on 02/24/18at 12:03; Admin Dose 650 MG; Start 02/16/18 at 22:30 Acetaminophen/ Hydrocodone Bitart ([place] (5/325)) 1 tab Q6H PRN PO MODERATE PAIN LEVEL 4-6 Last administered on 02/16/18at 22:49; Admin Dose 1 TAB; Start 02/16/18 at 22:30 Docusate Sodium (Colace) 100 mg Q12H PRN PO CONSTIPATION Last administered on 02/19/18at 02:22; Admin Dose 100 MG; Start 02/16/18 at 22:30 Bisacodyl (Dulcolax) 5 mg DAILY PRN PO CONSTIPATION Last administered on 02/19/18at 02:23; Admin Dose 5 MG; Start 02/16/18 at 22:30 Vancomycin HCl (Vanco Iv Per Pharmacy) VANCOMYCIN PER PHARMACY PER PROTOCOL XX ; Start 02/16/18 at 22:30 Insulin Aspart (Novolog Insulin Pen) NOVOLOG *MILD* ALGORITHM WITH MEALS BEDTIME SC Last administered on 02/25/18 08:05; Admin Dose 2 UNIT; Start 02/17/18 at 08:00 Miscellaneous Information 1 ea NOTE XX ; Start 02/16/18 at 22:30 Glucose (Glutose) 15 gm Q15M PRN PO DECREASED GLUCOSE; Start 02/16/18 at 22:30 Glucose (Glutose) 22.5 gm Q15M PRN PO DECREASED GLUCOSE; Start 02/16/18 at 22:30 Dextrose (D50w Syringe) 25 ml Q15M PRN IV DECREASED GLUCOSE; Start 02/16/18 at 22:30 Dextrose (D50w Syringe) 50 ml Q15M PRN IV DECREASED GLUCOSE; Start 02/16/18 at 22:30 Glucagon (Glucagen) 1 mg Q15M PRN IM DECREASED GLUCOSE; Start 02/16/18 at 22:30 Glucose (Glutose) 15 gm Q15M PRN BUCCAL DECREASED GLUCOSE; Start 02/16/18 at 22:30 Miscellaneous Information (Pending Santyl Order For Wound Care) This patient zimmerman... PRN PRN XX Stage 3/4 wound ; Start 02/17/18 at 04:30 Collagenase (Santyl) 1 applic DAILY TOP Last administered on 02/25/18 08:11; Admin Dose 1 APPLIC; Start 02/17/18 at 09:00 Collagenase (Santyl) 1 applic PRN PRN TOP WHEN SOILED; Start 02/17/18 at 05:00 Heparin Sodium (Porcine) (Heparin (5000 Units/1ml)) 5,000 unit Q12 SC Last a dministered on 02/25/18 08:06; Admin Dose 5,000 UNIT; Start 02/17/18 at 21:00 Guaifenesin/ Dextromethorphan (Robitussin Dm Liquid Cup) 10 ml Q4H PRN PO cough Last administered on 02/24/18 16:34; Admin Dose 10 ML; Start 02/18/18 at 12:00 Levalbuterol (Xopenex Neb) 1.25 mg Q4H RESP THERAPY HHN Last administered on 02/24/18 20:43; Admin Dose 1.25 MG; Start 02/19/18 at 01:00 Docusate Sodium (Colace) 200 mg BID PO Last administered on 02/25/18 08:10; Admin Dose 200 MG; Start 02/19/18 at 09:00 Polyethylene Glycol (Miralax) 17 gm DAILY PO Last administered on 02/23/18at 08:12; Admin Dose 17 GM; Start 02/19/18 at 09:00 Insulin Glargine (Lantus) 60 units QHS SC Last administered on 02/24/18 21:18; Admin Dose 60 UNITS; Start 02/19/18 at 21:00 Meropenem/Sodium Chloride 50 ml @ 100 mls/hr Q12 IVPB Last administered on 02/25/18 08:12; Admin Dose 100 MLS/HR; Start 02/19/18 at 15:00 Vancomycin HCl 1.25 gm/Sodium Chloride 250 ml @ 83.333 mls/ hr Q12H IVPB Last administered on 02/24/18 23:22; Admin Dose 83.333 MLS/HR; Start 02/19/18 at 23:00 Ascorbic Acid (Vitamin C) 500 mg DAILY PO Last administered on 02/25/18 08:10; Admin Dose 500 MG; Start 02/20/18 at 16:00 Zinc Sulfate (Zinc Sulfate) 220 mg DAILY PO Last administered on 02/25/18 08:11; Admin Dose 220 MG; Start 02/20/18 at 16:00; Stop 03/03/18 at 15:59 Multivitamins Therapeutic (Theragran) 1 tab DAILY PO Last administered on 02/25/18 08:11; Admin Dose 1 TAB; Start 02/20/18 at 16:00 Glipizide (Glucotrol) 5 mg AC BREAKFAST DINNER PO Last administered on 02/25/18 08:11; Admin Dose 5 MG; Start 02/21/18 at 17:35 Sodium Hypochlorite (Dakin'S (Dilute )) 1 applic BID IRR Last administered on 02/25/18 08:11; Admin Dose 1 APPLIC; Start 02/22/18 at 21:00 Insulin Aspart (Novolog Insulin Pen) 7 unit WITH MEALS SC Last administered on 02/25/18 08:04; Admin Dose 7 UNIT; Start 02/24/18 at 11:30 Assessment/Plan Chief Complaint/Hosp Course 1) Left foot diabetic ulcer 2) Cellulitis 3) DM2 with peripheral neuropathy 4) LLE edema 5) Obesity Additional Assessment/Plan Improved appearance but purulence still present from plantar wound. Copious wound irrigation with saline. Cont. open packing. May need NPWT once acute infection resolved. Appreciate ID recs. Pt education on followup care and tight glycemic control. RACHELLE WAITE DPM Feb 25, 2018 10:00
[2018-02-25] MEDS: VANCOMYCIN 1.25 GM in SOD CHLORIDE 0.9% 250 ML IVPB SCH ×2 (11:17→11:37)
--- NOTE | 2018-02-25 11:32 | NUR ---
CM NOTES CM CONSULT FOR HOME HEALTH WOUND CARE AND ABX IV . CALLED [facility] SPOKE TO JAIRO ALVAREZ . ORDER, PROGRESS NOTES, WOUND EVAL AND FACE SHEET FAXED TO [facility] # [phone] . . CM TO F/U
--- NOTE | 2018-02-25 12:56 | PN ---
Date/Time of Note Date/Time of Note DATE: 02/25/18 TIME: 12:54 Objective Vitals Vital Signs Date Temp Pulse Resp B/P (MAP) Pulse Ox O2 O2 Flow FiO2 Time Delivery Rate 02/25/18 82 18 95 21 12:47 02/25/18 98.4 106/53 Room Air 08:13 (70) Intake and Output 02/24/18 02/24/18 02/25/18 1515:00 23:00 07:00 IntakeIntake Total 540 ml 490 ml 250 ml OutputOutput Total 400 ml 1275 ml BalanceBalance 540 ml 90 ml -1025 ml Results Result Diagram: 02/25/18 0550 02/25/18 0550 Medications Medications Current Medications IV Flush (NS 3 ml) 3 ml PER PROTOCOL IV ; Start 02/16/18 at 22:30 Ondansetron HCl (Zofran Inj) 4 mg Q6H PRN IV NAUSEA AND/OR VOMITING; Start 02/16/18 at 22:30 Acetaminophen (Tylenol Tab) 650 mg Q6H PRN PO PAIN LEVEL 1-3 OR FEVER Last administered on 02/24/18at 12:03; Admin Dose 650 MG; Start 02/16/18 at 22:30 Acetaminophen/ Hydrocodone Bitart ([place] (5/325)) 1 tab Q6H PRN PO MODERATE PAIN LEVEL 4-6 Last administered on 02/16/18at 22:49; Admin Dose 1 TAB; Start 02/16/18 at 22:30 Docusate Sodium (Colace) 100 mg Q12H PRN PO CONSTIPATION Last administered on 02/19/18at 02:22; Admin Dose 100 MG; Start 02/16/18 at 22:30 Bisacodyl (Dulcolax) 5 mg DAILY PRN PO CONSTIPATION Last administered on 02/19/18at 02:23; Admin Dose 5 MG; Start 02/16/18 at 22:30 Vancomycin HCl (Vanco Iv Per Pharmacy) VANCOMYCIN PER PHARMACY PER PROTOCOL XX ; Start 02/16/18 at 22:30 Insulin Aspart (Novolog Insulin Pen) NOVOLOG *MILD* ALGORITHM WITH MEALS BEDTIME SC Last administered on 02/25/18at 12:02; Admin Dose 2 UNIT; Start 02/17/18 at 08:00 Miscellaneous Information 1 ea NOTE XX ; Start 12/24/18 at 22:30 Glucose (Glutose) 15 gm Q15M PRN PO DECREASED GLUCOSE; Start 02/16/18 at 22:30 Glucose (Glutose) 22.5 gm Q15M PRN PO DECREASED GLUCOSE; Start 02/16/18 at 22:30 Dextrose (D50w Syringe) 25 ml Q15M PRN IV DECREASED GLUCOSE; Start 02/16/18 at 22:30 Dextrose (D50w Syringe) 50 ml Q15M PRN IV DECREASED GLUCOSE; Start 02/16/18 at 22:30 Glucagon (Glucagen) 1 mg Q15M PRN IM DECREASED GLUCOSE; Start 02/16/18 at 22:30 Glucose (Glutose) 15 gm Q15M PRN BUCCAL DECREASED GLUCOSE; Start 02/16/18 at 22:30 Miscellaneous Information (Pending Santyl Order For Wound Care) This patient zimmerman... PRN PRN XX Stage 3/4 wound ; Start 02/17/18 at 04:30 Collagenase (Santyl) 1 applic DAILY TOP Last administered on 02/25/18 08:11; Admin Dose 1 APPLIC; Start 02/17/18 at 09:00 Collagenase (Santyl) 1 applic PRN PRN TOP WHEN SOILED; Start 02/17/18 at 05:00 Heparin Sodium (Porcine) (Heparin (5000 Units/1ml)) 5,000 unit Q12 SC Last administered on 02/25/18 08:06; Admin Dose 5,000 UNIT; Start 02/17/18 at 21:00 Guaifenesin/ Dextromethorphan (Robitussin Dm Liquid Cup) 10 ml Q4H PRN PO cough Last administered on 02/24/18 16:34; Admin Dose 10 ML; Start 02/18/18 at 12:00 Levalbuterol (Xopenex Neb) 1.25 mg Q4H RESP THERAPY HHN Last administered on 02/25/18 12:47; Admin Dose 1.25 MG; Start 02/19/18 at 01:00 Docusate Sodium (Colace) 200 mg BID PO Last administered on 02/25/18 08:10; Admin Dose 200 MG; Start 02/19/18 at 09:00 Polyethylene Glycol (Miralax) 17 gm DAILY PO Last administered on 02/23/18at 08:12; Admin Dose 17 GM; Start 02/19/18 at 09:00 Insulin Glargine (Lantus) 60 units QHS SC Last administered on 02/24/18 21:18; Admin Dose 60 UNITS; Start 02/19/18 at 21:00 Meropenem/Sodium Chloride 50 ml @ 100 mls/hr Q12 IVPB Last administered on 02/25/18 08:12; Admin Dose 100 MLS/HR; Start 02/19/18 at 15:00 Vancomycin HCl 1.25 gm/Sodium Chloride 250 ml @ 83.333 mls/ hr Q12H IVPB Last administered on 02/25/18 11:37; Admin Dose 83.333 MLS/HR; Start 02/19/18 at 23:00 Ascorbic Acid (Vitamin C) 500 mg DAILY PO Last administered on 02/25/18 08:10; Admin Dose 500 MG; Start 02/20/18 at 16:00 Zinc Sulfate (Zinc Sulfate) 220 mg DAILY PO Last administered on 02/25/18 08:11; Admin Dose 220 MG; Start 02/20/18 at 16:00; Stop 03/03/18 at 15:59 Multivitamins Therapeutic (Theragran) 1 tab DAILY PO Last administered on 02/25/18 08:11; Admin Dose 1 TAB; Start 02/20/18 at 16:00 Glipizide (Glucotrol) 5 mg AC BREAKFAST DINNER PO Last administered on 02/25/18 08:11; Admin Dose 5 MG; Start 02/21/18 at 17:35 Sodium Hypochlorite (Dakin'S (Dilute 40)) 1 applic BID IRR Last administered on 02/25/18 08:11; Admin Dose 1 APPLIC; Start 02/22/18 at 21:00 Insulin Aspart (Novolog Insulin Pen) 7 unit WITH MEALS SC Last administered on 02/25/18 12:01; Admin Dose 7 UNIT; Start 02/24/18 at 11:30 VTE Prophylaxis Risk score (from Nsg)>0 risk: 3 SCD applied (from Nsg): Yes Lines/Catheters IV Catheter Type: Juarez in Place: No Assessment/Plan Hospital Course Subjective Patient at baseline, no acute complaints, some leg pain but patient states he feels well Objective Physical exam General: Patient is laying in bed and answers questions appropriately Mentation: Patient is alert and oriented 4, Head: Normocephalic atraumatic Eyes: EOMI, pupils reactive to light Neck: Supple, nontender, midline Respiratory: Clear to auscultation bilaterally Cardiovascular: regular rate, no obvious murmurs Gastrointestinal: non-tender to palpation, bowel sounds heard. 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: Moves all extremities spontaneously Skin: Left foot bandaged, CDI Assessment/Plan 1. Left great toe metatarsal wound s/p debridement 02/17 and 02/20 - Podiatry on board and appreciate consultation. Continue offloading left foot while in bed. BID dressing changes - Cultures noted. ID on board and appreciate recommendations. Will need to continue on IV antibiotics after discharge. - Repeat MRI negative for OM - Xray results noted - wound cx noted 2. Diabetes Mellitus - A1 noted - Continued on Lantus 60 units which is his home dose. - Novolog and Glipizide on board as well - on 3 PO medications at home as well - ISS and accuchecks 3. ALESSANDRO- resolved - Renal function appears at baseline - will avoid nephrotoxic agents - Renal US negative for chronic disease or obstruction 4. Sepsis secondary diabetic foot ulcer - Remains afebrile and will need to assess for early OM seen on CT scan - ID on board and appreciate recommendations - WBC trending down and remains afebrile 5. Disposition - pending approval of wound care/ IV abx/HHPT/FWW/PICC line placed before DC, likely tomorrow JANELL YOO Feb 25, 2018 12:56
--- NOTE | 2018-02-25 14:20 | PN ---
Date/Time of Note Date/Time of Note DATE: 02/25/18 TIME: 14:20 Assessment/Plan VTE Prophylaxis Risk score (from Nsg)>0 risk: 3 SCD applied (from Nsg): Yes Pharmacological prophylaxis: heparin Lines/Catheters IV Catheter Type (from Nrsg): Urinary Cath still in place: No Assessment/Plan Hospital Course 57 y/o diabetic M patient presents to the floor with left foot ulceration which has been present for over a month but has worsened in the past 6 days. Patient had attempted to manage it himself but noticed it was not improving. He noticed increased swelling, redness, and drainage. Patient relates the wound caused by ill fitting shoes. Patient denies f/c/n/v no chest pain or shortness of breath. Assessment/Plan 1) Left foot diabetic ulcer s/p excisional debridement (DOS: 02/20/18) 2) Cellulitis 3) abscess L foot 4) DM2 with peripheral neuropathy 5) LLE edema 6) Obesity Plan: Copious dakins and betadine irrigation was used at the incision sites. Betadine 1/4inch packing placed into the wound sites. Recommend BID dressing changes. Wound cultures showing mixed gram neg organisms and enterococcus. Intra op Cx showing e. coli and proteus mirabilis. Continue with IV abx per recommendations. Recommend offloading with pillows. Continue with warm blankets to the foot. Recommend PICC line abx and will need daily dressing changes with home health or SNF placement. Medical decisions, treatment, and plan coordinated with Dr. Perez. Result Diagram: 02/25/18 0550 02/25/18 0550 Results 24hrs Laboratory Tests Test 02/24/18 17:16 02/24/18 21:15 02/25/18 05:47 02/25/18 05:50 Bedside Glucose 223 H 271 H Erythrocyte 73 H Sedimentation Rate C-Reactive Protein 6.1 H White Blood Count 11.4 H Red Blood Count 3.38 L Hemoglobin 10.3 L Hematocrit 30.3 L Mean Corpuscular Volume 89.6 Mean Corpuscular 30.5 Hemoglobin Mean Corpuscular 34.0 Hemoglobin Concent Red Cell Distribution 12.0 Width Platelet Count 483 H Mean Platelet Volume 9.5 Immature Granulocytes % 3.700 H Neutrophils % 65.9 Lymphocytes % 20.0 Monocytes % 6.3 Eosinophils % 3.6 Basophils % 0.5 Nucleated Red Blood 0.0 Cells % Immature Granulocytes # 0.420 H Neutrophils # 7.5 Lymphocytes # 2.3 Monocytes # 0.7 Eosinophils # 0.4 Basophils # 0.1 Nucleated Red Blood 0.0 Cells # Sodium Level 138 Potassium Level 4.3 Chloride Level 108 Carbon Dioxide Level 19 L Anion Gap 11 Blood Urea Nitrogen 30 H Creatinine 1.07 Est Glomerular Filtrat > 60 Rate mL/min Glucose Level 266 H Calcium Level 9.0 Phosphorus Level 3.7 Magnesium Level 2.0 Test 02/25/18 07:59 02/25/18 11:57 Bedside Glucose 220 219 Subjective 24 Hr Interval Summary Free Text/Dictation No acute events overnight Exam/Review of Systems Vital Signs Vitals Vital Signs Date Temp Pulse Resp B/P (MAP) Pulse Ox O2 O2 Flow FiO2 Time Delivery Rate 02/25/18 82 18 95 21 12:47 02/25/18 98.4 106/53 Room Air 08:13 (70) Intake and Output 02/24/18 02/24/18 02/25/18 1515:00 23:00 07:00 IntakeIntake Total 540 ml 490 ml 250 ml OutputOutput Total 400 ml 1275 ml BalanceBalance 540 ml 90 ml -1025 ml Exam decreased epidermalysis noted to the left forefoot region Medial ankle and leg erythema decreased DP/PT pulses palpable Absent protective sensations 2+ pitting edema to left lower extremity Left 1st MPJ ulceration with fibro granular wound base Measuring 5 x 2 x 2.0cm. Dorsal lateral hallux ulcer measuring 3.2 x 1.1 x 2.0cm. The wounds communicate with each other minimal purulence appreciated at the ulcer site. The wound probes to joint capsule, tibial sesamoid and laterally. There is surrounding erythema. There is no cyanosis noted to the L hallux Left medial 2nd digit site appreciated a partial thickness wound showing signs of epithelialization Right foot 2nd digit amputation appreciated Muscle strength 5/5 in all compartments of the foot. MRI L foot IMPRESSION: 1. Focal soft tissue ulceration along the plantar medial aspect of the hallux sesamoid articulation with associated soft tissue sinus tract that terminates and fluid at the base of the medial sesamoid. There is no MR evidence of organizing soft tissue abscess. The fluid collection abuts the plantar medial cortex of the medial sesamoid however there is no MR evidence of osteomyelitis. 2. Near circumferential significant soft tissue inflammation about the forefoot predominating on the plantar medial aspect of the level of the first MTP joint. 3. Mild marrow edema signal of the medial head of the first metatarsal. Findings are likely related to degenerative changes and are associated with mild thickening of the medial capsule ligament. Non-invasive arterial studies IMPRESSION: 1. No sonographic evidence for hemodynamically significant arterial stenosis or occlusion in the bilateral lower extremities. 2. Left dorsalis pedis artery was not evaluated due to overlying bandage. 3. Normal bilateral ankle brachial indices. There is normal triphasic flow throughout the left lower extremity arterial system. The left posterior tibial artery brachial index is 1.2 and left dorsalis pedis ankle brachial index is 1.2. Foot X-ray IMPRESSION: 1. Soft tissue injury overlying the first metatarsal phalangeal joint medially. 2. Otherwise unremarkable images of the left foot. CT IMPRESSION: Redemonstration of left foot cellulitis with more focal soft tissue thickening noted adjacent to the first digit. No discrete collections are identified. Soft tissue gas and postsurgical packing material is noted surrounding the left first digit. Suggestion of subtle sclerosis involving the adjacent sesamoid bone medially raising the possibility for new osteitis/osteomyelitis and should be correlated with repeat MRI as warranted. Incidental note is also made of a subacute appearing fracture through the posterior medial tibial plateau. Findings are superimposed on the background of tricompartmental joint osteoarthrosis. Medications Medications Current Medications IV Flush (NS 3 ml) 3 ml PER PROTOCOL IV ; Start 02/16/18 at 22:30 Ondansetron HCl (Zofran Inj) 4 mg Q6H PRN IV NAUSEA AND/OR VOMITING; Start 02/16/18 at 22:30 Acetaminophen (Tylenol Tab) 650 mg Q6H PRN PO PAIN LEVEL 1-3 OR FEVER Last administered on 02/24/18at 12:03; Admin Dose 650 MG; Start 02/16/18 at 22:30 Acetaminophen/ Hydrocodone Bitart ([place] (5/325)) 1 tab Q6H PRN PO MODERATE PAIN LEVEL 4-6 Last administered on 02/16/18at 22:49; Admin Dose 1 TAB; Start 02/16/18 at 22:30 Docusate Sodium (Colace) 100 mg Q12H PRN PO CONSTIPATION Last administered on 02/19/18at 02:22; Admin Dose 100 MG; Start 02/16/18 at 22:30 Bisacodyl (Dulcolax) 5 mg DAILY PRN PO CONSTIPATION Last administered on 02/19/18at 02:23; Admin Dose 5 MG; Start 02/16/18 at 22:30 Vancomycin HCl (Vanco Iv Per Pharmacy) VANCOMYCIN PER PHARMACY PER PROTOCOL XX ; Start 02/16/18 at 22:30 Insulin Aspart (Novolog Insulin Pen) NOVOLOG *MILD* ALGORITHM WITH MEALS BEDTIME SC Last administered on 02/25/18 12:02; Admin Dose 2 UNIT; Start 02/17/18 at 08:00 Miscellaneous Information 1 ea NOTE XX ; Start 02/16/18 at 22:30 Glucose (Glutose) 15 gm Q15M PRN PO DECREASED GLUCOSE; Start 02/16/18 at 22:30 Glucose (Glutose) 22.5 gm Q15M PRN PO DECREASED GLUCOSE; Start 02/16/18 at 22:30 Dextrose (D50w Syringe) 25 ml Q15M PRN IV DECREASED GLUCOSE; Start 02/16/18 at 22:30 Dextrose (D50w Syringe) 50 ml Q15M PRN IV DECREASED GLUCOSE; Start 02/16/18 at 22:30 Glucagon (Glucagen) 1 mg Q15M PRN IM DECREASED GLUCOSE; Start 02/16/18 at 22:30 Glucose (Glutose) 15 gm Q15M PRN BUCCAL DECREASED GLUCOSE; Start 02/16/18 at 22:30 Miscellaneous Information (Pending Santyl Order For Wound Care) This patient zimmerman... PRN PRN XX Stage 3/4 wound ; Start 02/17/18 at 04:30 Collagenase (Santyl) 1 applic DAILY TOP Last administered on 02/25/18 08:11; Admin Dose 1 APPLIC; Start 02/17/18 at 09:00 Collagenase (Santyl) 1 applic PRN PRN TOP WHEN SOILED; Start 02/17/18 at 05:00 Heparin Sodium (Porcine) (Heparin (5000 Units/1ml)) 5,000 unit Q12 SC Last administered on 02/25/18 08:06; Admin Dose 5,000 UNIT; Start 02/17/18 at 21:00 Guaifenesin/ Dextromethorphan (Robitussin Dm Liquid Cup) 10 ml Q4H PRN PO cough Last administered on 02/24/18 16:34; Admin Dose 10 ML; Start 02/18/18 at 12:00 Levalbuterol (Xopenex Neb) 1.25 mg Q4H RESP THERAPY HHN Last administered on 02/25/18 12:47; Admin Dose 1.25 MG; Start 02/19/18 at 01:00 Docusate Sodium (Colace) 200 mg BID PO Last administered on 02/25/18 08:10; Admin Dose 200 MG; Start 02/19/18 at 09:00 Polyethylene Glycol (Miralax) 17 gm DAILY PO Last administered on 02/23/18 08:12; Admin Dose 17 GM; Start 02/19/18 at 09:00 Insulin Glargine (Lantus) 60 units QHS SC Last administered on 02/24/18 21:18; Admin Dose 60 UNITS; Start 02/19/18 at 21:00 Meropenem/Sodium Chloride 50 ml @ 100 mls/hr Q12 IVPB Last administered on 02/25/18 08:12; Admin Dose 100 MLS/HR; Start 02/19/18 at 15:00 Vancomycin HCl 1.25 gm/Sodium Chloride 250 ml @ 83.333 mls/ hr Q12H IVPB Last administered on 02/25/18 11:37; Admin Dose 83.333 MLS/HR; Start 02/19/18 at 23:00 Ascorbic Acid (Vitamin C) 500 mg DAILY PO Last administered on 02/25/18 08:10; Admin Dose 500 MG; Start 02/20/18 at 16:00 Zinc Sulfate (Zinc Sulfate) 220 mg DAILY PO Last administered on 02/25/18 08:11; Admin Dose 220 MG; Start 02/20/18 at 16:00; Stop 03/03/18 at 15:59 Multivitamins Therapeutic (Theragran) 1 tab DAILY PO Last administered on 02/25/18 08:11; Admin Dose 1 TAB; Start 02/20/18 at 16:00 Glipizide (Glucotrol) 5 mg AC BREAKFAST DINNER PO Last administered on 02/25/18 08:11; Admin Dose 5 MG; Start 02/21/18 at 17:35 Sodium Hypochlorite (Dakin'S (Dilute )) 1 applic BID IRR Last administered on 1/2/19at 08:11; Admin Dose 1 APPLIC; Start 02/22/18 at 21:00 Insulin Aspart (Novolog Insulin Pen) 7 unit WITH MEALS SC Last administered on 02/25/18at 12:01; Admin Dose 7 UNIT; Start 02/24/18 at 11:30 NIMISHA HENNING DPM Feb 25, 2018 14:20
--- NOTE | 2018-02-25 14:39 | NUR ---
[facility] Patient: Yuo Santana : 1960 Age/Sex: 57/M Unit#: [id number] Room/Bed: [facility] User: Olu Jackman PTA Date: 02/25/18 10:00 Type: PT Technical Record Therapy day number 5 Subjective Current complaint of pain Pain Scale NUMERIC Pain Intensity 5 (0-10) Patient Stated Goal for Pain Relief 0 (0-10) Pain Level Comment L FOOT Pre Treatment Vital Signs Stable Yes Exercise Assessment Label Bilat Lower Extremity Exercise Type Active ROM Additional Exercise Comments ALL PLANES Exercise Start Time 09:50 Exercise End Time 10:00 Total Exercise Time 10 min (8-127) Weight Bearing Assessment Label Left Lower Extremity Weight Bearing Status Weight Bearing as Leann Post Treatment Pain Intensity 5 0-10 Total Treament Time 10 min (8-127) Total Minutes 10 Total Units 1 PT Technical Record Comment PT notes: patient only agreed to theraex in supine due to increase fatigability today;will follow up next treatment schedule.
[2018-02-25 14:44] VITALS: BP 110/60; PULSE 78; RESP 18
--- NOTE | 2018-02-25 15:21 | CONS ---
Date/Time of Note Date/Time of Note DATE: 02/25/18 TIME: 15:17 Assessment/Plan Assessment/Plan Hospital Course No acute changes patient is alert feels better looks comfortable, no fevers overnight WBC 11.4 platelets 483 no shift no bands BUN 30 creatinine 1.07 Microbiology: Cultures of the fluid growing E. coli Proteus mirabilis and enterococcus and Klebsiella pneumoniae Antimicrobials: Vancomycin meropenem Physical examination this is a obese well-developed middle-aged man who is awake in no distress. Head atraumatic normocephalic. Neck is supple. Chest rise symmetrical breath sounds clear. Heart: S1-S2. Abdomen obese soft bowel sounds present. Extremities with left foot dressing intact Assessment: 1. Systemic inflammatory response syndrome 2. Left foot cellulitis/abscess, status post I&D 3. Uncontrolled diabetes 4. Obesity 5. Allergy: Rocephin Plan: Patient is doing better, fevers resolving, we will will change antibiotics to oral Levaquin and daptomycin for enterococcal coverage, continue local wound care per podiatry, consider PICC line placement Result Diagram: 02/25/18 0550 02/25/18 0550 Results 24hrs Laboratory Tests Test 02/24/18 17:16 02/24/18 21:15 02/25/18 05:47 02/25/18 05:50 Bedside Glucose 223 H 271 H Erythrocyte 73 H Sedimentation Rate C-Reactive Protein 6.1 H White Blood Count 11.4 H Red Blood Count 3.38 L Hemoglobin 10.3 L Hematocrit 30.3 L Mean Corpuscular Volume 89.6 Mean Corpuscular 30.5 Hemoglobin Mean Corpuscular 34.0 Hemoglobin Concent Red Cell Distribution 12.0 Width Platelet Count 483 H Mean Platelet Volume 9.5 Immature Granulocytes % 3.700 H Neutrophils % 65.9 Lymphocytes % 20.0 Monocytes % 6.3 Eosinophils % 3.6 Basophils % 0.5 Nucleated Red Blood 0.0 Cells % Immature Granulocytes # 0.420 H Neutrophils # 7.5 Lymphocytes # 2.3 Monocytes # 0.7 Eosinophils # 0.4 Basophils # 0.1 Nucleated Red Blood 0.0 Cells # Sodium Level 138 Potassium Level 4.3 Chloride Level 108 Carbon Dioxide Level 19 L Anion Gap 11 Blood Urea Nitrogen 30 H Creatinine 1.07 Est Glomerular Filtrat > 60 Rate mL/min Glucose Level 266 H Calcium Level 9.0 Phosphorus Level 3.7 Magnesium Level 2.0 Test 02/25/18 07:59 02/25/18 11:57 Bedside Glucose 220 219 Consultation Date/Type/Reason Admit Date/Time Feb 16, 2018 at 20:38 Initial Consult Date Type of Consult ID Exam/Review of Systems Vital Signs Vitals Vital Signs Date Temp Pulse Resp B/P (MAP) Pulse Ox O2 O2 Flow FiO2 Time Delivery Rate 02/25/18 98.2 78 18 110/60 95 Room Air 14:44 (77) 02/25/18 21 12:47 Intake and Output 02/24/18 02/24/18 02/25/18 1414:59 22:59 06:59 IntakeIntake Total 540 ml 490 ml 250 ml OutputOutput Total 400 ml 1275 ml BalanceBalance 540 ml 90 ml -1025 ml Medications Medications Current Medications IV Flush (NS 3 ml) 3 ml PER PROTOCOL IV ; Start 02/16/18 at 22:30 Ondansetron HCl (Zofran Inj) 4 mg Q6H PRN IV NAUSEA AND/OR VOMITING; Start 02/16/18 at 22:30 Acetaminophen (Tylenol Tab) 650 mg Q6H PRN PO PAIN LEVEL 1-3 OR FEVER Last a dministered on 02/24/18at 12:03; Admin Dose 650 MG; Start 02/16/18 at 22:30 Acetaminophen/ Hydrocodone Bitart ([place] (5/325)) 1 tab Q6H PRN PO MODERATE PAIN LEVEL 4-6 Last administered on 02/16/18at 22:49; Admin Dose 1 TAB; Start 02/16/18 at 22:30 Docusate Sodium (Colace) 100 mg Q12H PRN PO CONSTIPATION Last administered on 02/19/18at 02:22; Admin Dose 100 MG; Start 02/16/18 at 22:30 Bisacodyl (Dulcolax) 5 mg DAILY PRN PO CONSTIPATION Last administered on 02/19/18at 02:23; Admin Dose 5 MG; Start 02/16/18 at 22:30 Vancomycin HCl (Vanco Iv Per Pharmacy) VANCOMYCIN PER PHARMACY PER PROTOCOL XX ; Start 02/16/18 at 22:30 Insulin Aspart (Novolog Insulin Pen) NOVOLOG *MILD* ALGORITHM WITH MEALS BEDTIME SC Last administered on 02/25/18at 12:02; Admin Dose 2 UNIT; Start 02/17/18 at 08:00 Miscellaneous Information 1 ea NOTE XX ; Start 02/16/18 at 22:30 Glucose (Glutose) 15 gm Q15M PRN PO DECREASED GLUCOSE; Start 02/16/18 at 22:30 Glucose (Glutose) 22.5 gm Q15M PRN PO DECREASED GLUCOSE; Start 02/16/18 at 22:30 Dextrose (D50w Syringe) 25 ml Q15M PRN IV DECREASED GLUCOSE; Start 02/16/18 at 22:30 Dextrose (D50w Syringe) 50 ml Q15M PRN IV DECREASED GLUCOSE; Start 02/16/18 at 22:30 Glucagon (Glucagen) 1 mg Q15M PRN IM DECREASED GLUCOSE; Start 02/16/18 at 22:30 Glucose (Glutose) 15 gm Q15M PRN BUCCAL DECREASED GLUCOSE; Start 02/16/18 at 22:30 Miscellaneous Information (Pending Santyl Order For Wound Care) This patient zimmerman... PRN PRN XX Stage 3/4 wound ; Start 02/17/18 at 04:30 Collagenase (Santyl) 1 applic DAILY TOP Last administered on 02/25/18 08:11; Admin Dose 1 APPLIC; Start 02/17/18 at 09:00 Collagenase (Santyl) 1 applic PRN PRN TOP WHEN SOILED; Start 02/17/18 at 05:00 Heparin Sodium (Porcine) (Heparin (5000 Units/1ml)) 5,000 unit Q12 SC Last administered on 02/25/18 08:06; Admin Dose 5,000 UNIT; Start 02/17/18 at 21:00 Guaifenesin/ Dextromethorphan (Robitussin Dm Liquid Cup) 10 ml Q4H PRN PO cough Last administered on 02/24/18 16:34; Admin Dose 10 ML; Start 02/18/18 at 12:00 Levalbuterol (Xopenex Neb) 1.25 mg Q4H RESP THERAPY HHN Last administered on 02/25/18 12:47; Admin Dose 1.25 MG; Start 02/19/18 at 01:00 Docusate Sodium (Colace) 200 mg BID PO Last administered on 02/25/18 08:10; Admin Dose 200 MG; Start 02/19/18 at 09:00 Polyethylene Glycol (Miralax) 17 gm DAILY PO Last administered on 02/23/18 08:12; Admin Dose 17 GM; Start 02/19/18 at 09:00 Insulin Glargine (Lantus) 60 units QHS SC Last administered on 02/24/18 21:18; Admin Dose 60 UNITS; Start 02/19/18 at 21:00 Meropenem/Sodium Chloride 50 ml @ 100 mls/hr Q12 IVPB Last administered on 02/25/18 08:12; Admin Dose 100 MLS/HR; Start 02/19/18 at 15:00 Vancomycin HCl 1.25 gm/Sodium Chloride 250 ml @ 83.333 mls/ hr Q12H IVPB Last administered on 02/25/18 11:37; Admin Dose 83.333 MLS/HR; Start 02/19/18 at 23:00 Ascorbic Acid (Vitamin C) 500 mg DAILY PO Last administered on 02/25/18 08:10; Admin Dose 500 MG; Start 02/20/18 at 16:00 Zinc Sulfate (Zinc Sulfate) 220 mg DAILY PO Last administered on 02/25/18 08:11; Admin Dose 220 MG; Start 02/20/18 at 16:00; Stop 03/03/18 at 15:59 Multivitamins Therapeutic (Theragran) 1 tab DAILY PO Last administered on 08:11; Admin Dose 1 TAB; Start 02/20/18 at 16:00 Glipizide (Glucotrol) 5 mg AC BREAKFAST DINNER PO Last administered on 02/25/18 08:11; Admin Dose 5 MG; Start 02/21/18 at 17:35 Sodium Hypochlorite (Dakin'S (Dilute )) 1 applic BID IRR Last administered on 02/25/18 08:11; Admin Dose 1 APPLIC; Start 02/22/18 at 21:00 Insulin Aspart (Novolog Insulin Pen) 7 unit WITH MEALS SC Last administered on 02/25/18 12:01; Admin Dose 7 UNIT; Start 02/24/18 at 11:30 KITTY DUMONT NP Feb 25, 2018 15:21
--- NOTE | 2018-02-25 16:45 | NUR ---
PICC Insertion. Received order in the Radiology Department for peripherally inserted central catheter (PICC) insertion at bedside. Orders verified and history reviewed. Patient awake, alert, oriented x 4. States he has had a PICC in the past at another facility. Procedure reviewed, patient agreed to proceed. Signed consent on chart for PICC. Mid-COMPA circumference 36.5cm. LUE prepped with chlorhexidene, then maximum barrier drape applied. Xylocaine 1% given SC at the intended insertion site. Left brachial vein accessed with 21G needle. 5 FR double lumen Arrow Power PICC, Lot#[id number], Product #[id number], inserted into brachial vein after trimming catheter down to 46cm, using U/S guidance and sterile technique. Brisk blood return from both ports. CXR performed; tip verbally confirmed by in lower 1/3 SVC with 43cm internal and 3cm out. All wires removed and accounted for. Sterile dressing applied. Patient tolerated procedure well.
--- NOTE | 2018-02-25 17:43 | NUR ---
NURSE NOTES: patient alert and oriented x 4, able to make needs known remained stable throughout the shift with no acute changes noted. No SOB or distress. Performed blood sugar checks as scheduled. All due medications were given, tolerated well. seen and examined by Dr. Ludy MD did the wound care treatment. Assessed for pain, denies any pain or discomforts. PICC line inserted, patient tolerated well. No bleeding noted. Safety precautions observed, hourly rounding done, bed alarm and bed brakes on for safety. call light and telephone within reach at all times. will continue to monitor. Will endorse accordingly to next shift for continuity of care.
[2018-02-25] MEDS: DAPTOMYCIN 700 MG in SOD CHLORIDE 0.9% 100 ML IVPB SCH (17:55)
[2018-02-25] MEDS: HYDROCODONE/APAP (5/325) TAB PO PRN (19:13)
[2018-02-25 20:00] VITALS: BP 129/68; PULSE 84; RESP 20
[2018-02-25] MEDS: INSULIN GLARGINE [LANTus] (100 UNITS/ML) SYG SC SCH (20:38)
[2018-02-26] MEDS: LEVALBUTEROL (NEB) 1.25 MG/0.5 ML AMP HHN SCH ×5 (01:52→16:52)
[2018-02-26 02:00] VITALS: BP 118/61; PULSE 82; RESP 18
[2018-02-26] MEDS ORDERED: LEVOFLOXACIN 750 MG TABLET PO SCH (06:00)
--- NOTE | 2018-02-26 06:19 | NUR ---
Pt VS are stable and pt afebrile. Pt denied having pain during shift. No acute changes or s/s of respiratory distress during shift. BG checked ACHS and BG is WNL. Dressings changed as ordered. Hourly rounding provided. Fall precautions observed with call light within reach. Pt planned to get d/c with HH; will endorse continuity of care to oncoming nurse. Addendum: 02/26/18 at 0641 by PRADEEP PAN RN PICC line is patent with brisk blood return.
[2018-02-26 07:35] VITALS: BP 105/56; PULSE 79; RESP 16
[2018-02-26] MEDS: INSULIN ASPART [NOVOLOG] 3 ML PEN SC SCH ×6 (08:01→17:36)
[2018-02-26] MEDS: glipiZIDE 5 MG TAB PO SCH ×2 (08:02→17:34)
[2018-02-26] MEDS: COLLAGENASE 5 GM (UD JAR) TOP SCH (09:00)
[2018-02-26] MEDS: DOCUSATE SODIUM 100 MG CAP PO SCH (09:00)
[2018-02-26] MEDS: POLYETHYLENE GLYCOL 17 GM PACKET PO SCH (09:00)
[2018-02-26] MEDS: SODIUM HYPOCHLORITE (1/40) 1 APPLIC BTL IRR SCH (09:25)
[2018-02-26] MEDS: MULTIVITAMINS THERAPEUTIC TAB PO SCH (09:25)
[2018-02-26] MEDS: ASCORBIC ACID 500 MG TAB PO SCH (09:25)
[2018-02-26] MEDS: ZINC SULFATE 220 MG CAP PO SCH (09:25)
[2018-02-26] MEDS: HEPARIN 5,000 UNIT/1 ML VIAL SC SCH (09:30)
--- NOTE | 2018-02-26 10:00 | NUR ---
Notified rn case manager hospice regarding the new antibiotics orders and home health.she said''ok i am working with that''notified her regarding the patient's truck park in [place] where.she spoke with the patient regarding this and patient has to arrange the transportation for the truck.
[2018-02-26] MEDS: ACETAMINOPHEN 325 MG TAB PO PRN (10:18)
--- NOTE | 2018-02-26 10:45 | NUR ---
PT NOTE FERNANDA [place] cleared pt for PT. Attempted to see pt however pt refused. Educated pt on benefits and importance of PT and despite max encouragement from this therapist, pt continued to refuse. Stated, "I'm waiting for the nurse assistant maintenance manager. I don't want to do anything right now. I don't want to walk." Will f/u if time permits
[2018-02-26] MEDS ORDERED: ZINC220C5 PO (10:50)
[2018-02-26] MEDS ORDERED: MULTI PO (10:50)
[2018-02-26] MEDS ORDERED: DOCU-216 PO (10:50)
[2018-02-26] MEDS ORDERED: ASC500 PO (10:50)
[2018-02-26] MEDS ORDERED: LEVO750T25 PO (10:50)
--- NOTE | 2018-02-26 11:03 | PDOCDIS ---
Discharge Instructions CONDITION [id number] Patient Condition: [id number] Stable HOME CARE INSTRUCTIONS: [id number] Special Diet: Cykjn1n [facility] ACTIVITY: [id number] Activity Restrictions: [id number] Avoid heavy lifting Keep Limb Elevated Taxaj3At Bathing Restrictions: [id number] Shower FOLLOW UP/APPOINTMENTS Follow-up Plan 1. Please follow up with Dr. Mick Boston, at the [facility] clinic within 1 week 2. Please do not put pressure on your left foot 3. Take all medications as directed 4. Continue all other home medications for diabetes JANELL YOO Feb 26, 2018 11:03
--- NOTE | 2018-02-26 11:07 | DS ---
Date/Time of Note Date/Time of Note DATE: 02/26/18 TIME: 11:06 Discharge Summary Admission/Discharge Info Admit Date/Time Feb 16, 2018 at 20:38 Discharge Date/Time Hospital Course Patient is a male with a past medical history significant for diabetes mellitus and diabetic foot ulcer who originally presented to [facility] for foot wound and subsequently underwent debridement by podiatry. Patient did well however infectious disease also saw patient and patient was monitored on IV antibiotics. Patient is stable at this time and although has difficulty ambulating since there is no weight supposed to be on his left foot, patient refuses alf facility and states that he would like to go home with home health instead. Patient will be arranged with home health IV antibiotics as well as oral antibiotics per ID recommendations, as well as home health wound care per podiatry recommendations,, as well as home health physical therapy. Patient will also be provided with a front wheel walker. Patient will be given prescription for his antibiotics and PICC line was placed for his IV antibiotics as well. Patient is to continue his current regimen at home for his diabetes and to follow-up with his primary care provider in order to more adeq uately adjust his insulin and patient will also make an appointment with podiatry within 1 week, information including phone number for the office of podiatry was given to patient at bedside before discharge. Discharge diagnosis Left great toe metatarsal wound, status post debridement Diabetes mellitus Acute kidney injury, resolved Sepsis Diabetic foot ulcer Home Meds Active Scripts Multivitamins* (Theragran*) 1 Tab Tab, 1 TAB PO DAILY for 30 Days, #30 TAB Prov:JANELL YOO 02/26/18 Ascorbic Acid (Vitamin C) 500 Mg Tab, 500 MG PO DAILY for 30 Days, #30 TAB Prov:JANELL YOO 02/26/18 Zinc Sulfate* (Zinc Sulfate*) 220 Mg Cap, 220 MG PO DAILY for 30 Days, #30 CAP Prov:JANELL YOO 02/26/18 Levofloxacin* (Levaquin*) 750 Mg Tablet, 750 MG PO DAILY for 14 Days, #14 TAB Prov:JANELL YOO 02/26/18 Follow-up Plan 1. Please follow up with Dr. Mick Boston, at the [facility] clinic within 1 week 2. Please do not put pressure on your left foot 3. Take all medications as directed 4. Continue all other home medications for diabetes Primary Care Provider Not On Staff Doctor Time spent on discharge: > 30 minutes Pending Labs Laboratory Tests Test 02/25/18 11:57 02/25/18 17:08 02/25/18 20:35 02/26/18 06:54 Bedside 219 143 180 Glucose mg/dL (70-220) mg/dL (70-220) mg/dL (70-220) Erythrocyte 75 Sedimentation mm/Hr (0-20) Rate Test 02/26/18 06:57 02/26/18 07:59 White Blood 9.9 Count 10^3/ul (4.8-10 .8) Red Blood 3.35 Count 10^6/ul (4.70-6 .10) Hemoglobin 10.2 g/dl (14.0-18.0 ) Hematocrit 30.6 % (42.0-52.0) Mean 91.3 Corpuscular fl (82.0-101.0) Volume Mean 30.4 Corpuscular pg (29.0-33.0) Hemoglobin Mean 33.3 Corpuscular g/dl (32.0-37.0 Hemoglobin Conc ) ent Red Cell 11.9 Distribution % (11.5-14.5) Width Platelet Count 473 10^3/UL (140-41 5) Mean Platelet 9.3 Volume fl (7.4-10.4) Immature 2.800 Granulocytes % % (0.001-0.429) Neutrophils % 65.1 % (39.0-77.0) Lymphocytes % 21.3 % (15.0-51.0) Monocytes % 6.6 % (0.0-11.0) Eosinophils % 3.5 % (0.0-7.0) Basophils % 0.7 % (0.0-2.0) Nucleated Red 0.0 Blood Cells % /100WBC (0.0-0. 0) Immature 0.280 Granulocytes # 10^3/ul (0.0-0. 031) Neutrophils # 6.4 10^3/ul (1.6-7. 5) Lymphocytes # 2.1 10^3/ul (0.8-2. 9) Monocytes # 0.7 10^3/ul (0.3-0. 9) Eosinophils # 0.3 10^3/ul (0.0-0. 5) Basophils # 0.1 10^3/ul (0.0-0. 1) Nucleated Red 0.0 Blood Cells # 10^3/ul (0.0-0. 0) Sodium Level 139 mmol/L (135-144 ) Potassium 3.8 Level mmol/L (3.5-5.1 ) Chloride Level 106 mmol/L (97-110) Carbon Dioxide 21 Level mmol/L (21-31) Anion Gap 12 (5-13) Blood Urea 31 mg/dl (7-20) Nitrogen Creatinine 0.91 mg/dl (0.61-1.2 4) Est Glomerular > 60 Filtrat mL/min (>60) Rate mL/min Glucose Level 148 mg/dl (70-220) Calcium Level 9.2 mg/dl (8.4-10.2 ) Magnesium 2.0 Level mg/dl (1.7-2.5) Total 0.0 Bilirubin mg/dl (0.2-1.3) Direct 0.00 Bilirubin mg/dl (0.00-0.2 0) Indirect 0.0 Bilirubin mg/dl (0-1.1) Aspartate Amino 43 IU/L (15-46) Transf (AST/SGO T) Alanine 91 IU/L (13-69) Aminotransferas e (ALT/SGPT) Alkaline 176 Phosphatase IU/L (42-121) Creatine 40 Kinase IU/L (23-200) C-Reactive 4.7 Protein mg/dl (0.0-0.9) Total Protein 6.5 g/dl (6.1-8.1) Albumin 3.0 g/dl (3.3-4.9) Globulin 3.50 g/dl (1.3-3.2) Albumin/Globuli 0.85 n Ratio Bedside 141 Glucose mg/dL (70-220) JANELL YOO Feb 26, 2018 11:07
--- NOTE | 2018-02-26 13:31 | NUR ---
RD Notes: Received consult for pt in regards to pt's concerns that they are not getting enough food on their meal trays. Visited pt's room, pt asleep, attempted to wake pt, but they did not respond. Pt's current diet order is Carbohydrate control (double portions of protein and vegetables OK'd).Noted that pt has d/c orders, but if pt remains at the hospital till tomorrow, will attempt to revisit pt tomorrow.
--- NOTE | 2018-02-26 14:03 | PN ---
Date/Time of Note Date/Time of Note DATE: 02/26/18 TIME: 14:03 Assessment/Plan VTE Prophylaxis Risk score (from Nsg)>0 risk: 1 SCD applied (from Nsg): Yes Pharmacological prophylaxis: heparin Lines/Catheters IV Catheter Type (from Nrsg): PICC Line Central line still needed: Yes Urinary Cath still in place: No Assessment/Plan Hospital Course 57 y/o diabetic M patient presents to the floor with left foot ulceration which has been present for over a month but has worsened in the past 6 days. Patient had attempted to manage it himself but noticed it was not improving. He noticed increased swelling, redness, and drainage. Patient relates the wound caused by ill fitting shoes. Patient denies f/c/n/v no chest pain or shortness of breath. Assessment/Plan 1) Left foot diabetic ulcer s/p excisional debridement (DOS: 02/20/18) 2) Cellulitis - improved 3) abscess L foot - improved 4) DM2 with peripheral neuropathy 5) LLE edema 6) Obesity Plan: Copious dakins and betadine irrigation at the incision sites. Betadine 1/4inch packing placed into the wound sites. Recommend BID dressing changes. Wound cultures showing polymicrobial. Intra op Cx showing e. coli and proteus mirabilis. Continue with IV abx per recommendations. Recommend offloading with pillows. Continue with warm blankets to the foot. Recommend PICC line abx and will need daily dressing changes with home health or SNF placement. Recommend non weight bearing to left foot with use of walker. Medical decisions, treatment, and plan coordinated with Dr. Perez. Result Diagram: 02/26/18 0657 02/26/18 0657 Results 24hrs Laboratory Tests Test 02/25/18 17:08 02/25/18 20:35 02/26/18 06:54 02/26/18 06:57 Bedside Glucose 143 180 Erythrocyte 75 H Sedimentation Rate White Blood Count 9.9 Red Blood Count 3.35 L Hemoglobin 10.2 L Hematocrit 30.6 L Mean Corpuscular Volume 91.3 Mean Corpuscular 30.4 Hemoglobin Mean Corpuscular 33.3 Hemoglobin Concent Red Cell Distribution 11.9 Width Platelet Count 473 H Mean Platelet Volume 9.3 Immature Granulocytes % 2.800 H Neutrophils % 65.1 Lymphocytes % 21.3 Monocytes % 6.6 Eosinophils % 3.5 Basophils % 0.7 Nucleated Red Blood 0.0 Cells % Immature Granulocytes # 0.280 H Neutrophils # 6.4 Lymphocytes # 2.1 Monocytes # 0.7 Eosinophils # 0.3 Basophils # 0.1 Nucleated Red Blood 0.0 Cells # Sodium Level 139 Potassium Level 3.8 Chloride Level 106 Carbon Dioxide Level 21 Anion Gap 12 Blood Urea Nitrogen 31 H Creatinine 0.91 Est Glomerular Filtrat > 60 Rate mL/min Glucose Level 148 # Calcium Level 9.2 Magnesium Level 2.0 Total Bilirubin 0.0 L Direct Bilirubin 0.00 Indirect Bilirubin 0.0 Aspartate Amino 43 Transf (AST/SGOT) Alanine 91 H Aminotransferase (ALT/SG PT) Alkaline Phosphatase 176 H Creatine Kinase 40 C-Reactive Protein 4.7 H Total Protein 6.5 Albumin 3.0 L Globulin 3.50 H Albumin/Globulin Ratio 0.85 Test 02/26/18 07:59 02/26/18 12:00 Bedside Glucose 141 261 H Subjective 24 Hr Interval Summary Free Text/Dictation No acute events overnight Exam/Review of Systems Vital Signs Vitals Vital Signs Date Temp Pulse Resp B/P (MAP) Pulse Ox O2 O2 Flow FiO2 Time Delivery Rate 02/26/18 82 18 96 21 12:48 02/26/18 98.1 105/56 Room Air 07:35 (72) Intake and Output 02/25/18 02/25/18 02/26/18 1515:00 23:00 07:00 IntakeIntake Total 3680 ml 400 ml OutputOutput Total 1150 ml 900 ml 600 ml BalanceBalance 2530 ml -500 ml -600 ml Exam decreased epidermalysis noted to the left forefoot region Medial ankle and leg erythema decreased DP/PT pulses palpable Absent protective sensations 2+ pitting edema to left lower extremity Left 1st MPJ ulceration with fibro granular wound base Measuring 5 x 2 x 2.0cm. Dorsal lateral hallux ulcer measuring 3.2 x 1.1 x 2.0cm. The wounds communicate with each other minimal purulence appreciated at the ulcer site. The wound probes to joint capsule, tibial sesamoid and laterally. There is surrounding erythema. There is no cyanosis noted to the L hallux Left medial 2nd digit site appreciated a partial thickness wound showing signs of epithelialization Right foot 2nd digit amputation appreciated Muscle strength 5/5 in all compartments of the foot. MRI L foot IMPRESSION: 1. Focal soft tissue ulceration along the plantar medial aspect of the hallux sesamoid articulation with associated soft tissue sinus tract that terminates and fluid at the base of the medial sesamoid. There is no MR evidence of organizing soft tissue abscess. The fluid collection abuts the plantar medial cortex of the medial sesamoid however there is no MR evidence of osteomyelitis. 2. Near circumferential significant soft tissue inflammation about the forefoot predominating on the plantar medial aspect of the level of the first MTP joint. 3. Mild marrow edema signal of the medial head of the first metatarsal. Findin gs are likely related to degenerative changes and are associated with mild thickening of the medial capsule ligament. Non-invasive arterial studies IMPRESSION: 1. No sonographic evidence for hemodynamically significant arterial stenosis or occlusion in the bilateral lower extremities. 2. Left dorsalis pedis artery was not evaluated due to overlying bandage. 3. Normal bilateral ankle brachial indices. There is normal triphasic flow throughout the left lower extremity arterial system. The left posterior tibial artery brachial index is 1.2 and left dorsalis pedis ankle brachial index is 1.2. Foot X-ray IMPRESSION: 1. Soft tissue injury overlying the first metatarsal phalangeal joint medially. 2. Otherwise unremarkable images of the left foot. CT IMPRESSION: Redemonstration of left foot cellulitis with more focal soft tissue thickening noted adjacent to the first digit. No discrete collections are identified. Soft tissue gas and postsurgical packing material is noted surrounding the left first digit. Suggestion of subtle sclerosis involving the adjacent sesamoid bone medially raising the possibility for new osteitis/osteomyelitis and should be correlated with repeat MRI as warranted. Incidental note is also made of a subacute appearing fracture through the posterior medial tibial plateau. Findings are superimposed on the background of tricompartmental joint osteoarthrosis. Medications Medications Current Medications IV Flush (NS 3 ml) 3 ml PER PROTOCOL IV ; Start 02/16/18 at 22:30 Ondansetron HCl (Zofran Inj) 4 mg Q6H PRN IV NAUSEA AND/OR VOMITING; Start 02/16/18 at 22:30 Acetaminophen (Tylenol Tab) 650 mg Q6H PRN PO PAIN LEVEL 1-3 OR FEVER Last administered on 02/26/18at 10:18; Admin Dose 650 MG; Start 02/16/18 at 22:30 Acetaminophen/ Hydrocodone Bitart ([place] (5/325)) 1 tab Q6H PRN PO MODERATE PA IN LEVEL 4-6 Last administered on 02/25/18 19:13; Admin Dose 1 TAB; Start 02/16/18 at 22:30 Docusate Sodium (Colace) 100 mg Q12H PRN PO CONSTIPATION Last administered on 02/19/18 02:22; Admin Dose 100 MG; Start 02/16/18 at 22:30 Bisacodyl (Dulcolax) 5 mg DAILY PRN PO CONSTIPATION Last administered on 02/19/18at 02:23; Admin Dose 5 MG; Start 02/16/18 at 22:30 Insulin Aspart (Novolog Insulin Pen) NOVOLOG *MILD* ALGORITHM WITH MEALS BEDTIME SC Last administered on 02/26/18 12:06; Admin Dose 4 UNIT; Start 02/17/18 at 08:00 Miscellaneous Information 1 ea NOTE XX ; Start 02/16/18 at 22:30 Glucose (Glutose) 15 gm Q15M PRN PO DECREASED GLUCOSE; Start 02/16/18 at 22:30 Glucose (Glutose) 22.5 gm Q15M PRN PO DECREASED GLUCOSE; Start 02/16/18 at 22:30 Dextrose (D50w Syringe) 25 ml Q15M PRN IV DECREASED GLUCOSE; Start 02/16/18 at 22:30 Dextrose (D50w Syringe) 50 ml Q15M PRN IV DECREASED GLUCOSE; Start 02/16/18 at 22:30 Glucagon (Glucagen) 1 mg Q15M PRN IM DECREASED GLUCOSE; Start 02/16/18 at 22:30 Glucose (Glutose) 15 gm Q15M PRN BUCCAL DECREASED GLUCOSE; Start 02/16/18 at 22:30 Miscellaneous Information (Pending Santyl Order For Wound Care) This patient zimmerman... PRN PRN XX Stage 3/4 wound ; Start 02/17/18 at 04:30 Collagenase (Santyl) 1 applic DAILY TOP Last administered on 02/25/18 08:11; Admin Dose 1 APPLIC; Start 02/17/18 at 09:00 Collagenase (Santyl) 1 applic PRN PRN TOP WHEN SOILED; Start 02/17/18 at 05:00 Heparin Sodium (Porcine) (Heparin (5000 Units/1ml)) 5,000 unit Q12 SC Last administered on 02/26/18 09:30; Admin Dose 5,000 UNIT; Start 02/17/18 at 21:00 Guaifenesin/ Dextromethorphan (Robitussin Dm Liquid Cup) 10 ml Q4H PRN PO cough Last administered on 02/24/18 16:34; Admin Dose 10 ML; Start 02/18/18 at 12:00 Levalbuterol (Xopenex Neb) 1.25 mg Q4H RESP THERAPY HHN Last administered on 02/26/18 12:48; Admin Dose 1.25 MG; Start 02/19/18 at 01:00 Docusate Sodium (Colace) 200 mg BID PO Last administered on 02/25/18 08:10; Admin Dose 200 MG; Start 02/19/18 at 09:00 Polyethylene Glycol (Miralax) 17 gm DAILY PO Last administered on 02/23/18 08:12; Admin Dose 17 GM; Start 02/19/18 at 09:00 Insulin Glargine (Lantus) 60 units QHS SC Last administered on 02/25/18 20:38; Admin Dose 60 UNITS; Start 02/19/18 at 21:00 Ascorbic Acid (Vitamin C) 500 mg DAILY PO Last administered on 02/26/18 09:25; Admin Dose 500 MG; Start 02/20/18 at 16:00 Zinc Sulfate (Zinc Sulfate) 220 mg DAILY PO Last administered on 02/26/18 09:25; Admin Dose 220 MG; Start 02/20/18 at 16:00; Stop 03/03/18 at 15:59 Multivitamins Therapeutic (Theragran) 1 tab DAILY PO Last administered on 02/26/18 09:25; Admin Dose 1 TAB; Start 02/20/18 at 16:00 Glipizide (Glucotrol) 5 mg AC BREAKFAST DINNER PO Last administered on 02/26/18 08:02; Admin Dose 5 MG; Start 02/21/18 at 17:35 Sodium Hypochlorite (Dakin'S (Dilute )) 1 applic BID IRR Last administered on 02/26/18 09:25; Admin Dose 1 APPLIC; Start 02/22/18 at 21:00 Insulin Aspart (Novolog Insulin Pen) 7 unit WITH MEALS SC Last administered on 02/26/18 12:06; Admin Dose 7 UNIT; Start 02/24/18 at 11:30 Daptomycin 700 mg/ Sodium Chloride 100 ml @ 200 mls/hr Q24H IVPB Last administered on 02/25/18at 17:55; Admin Dose 200 MLS/HR; Start 02/25/18 at 18:00 Levofloxacin (Levaquin) 750 mg DAILY@06 PO Last administered on 02/26/18at 05:24; Admin Dose 750 MG; Start 02/26/18 at 06:00 IV Flush (NS 10 ml) 10 ml PRN PRN IV IV PROTOCOL; Start 02/25/18 at 17:30 NIMISHA HENNING DPM Feb 26, 2018 14:03
[2018-02-26 14:20] VITALS: BP 109/55; PULSE 89; RESP 16
--- NOTE | 2018-02-26 14:46 | NUR ---
JAIRO NOTE HOME HEALTH REFERRAL. ROCAEL FROM [facility] ARRANGED IV ABX AND HOME HEALTH WITH [facility], PHARMACIST FROM [facility] CALLED CONFIRMED DC. ANEESH MEDINA WILL START CARE TOMORROW FOR IV ABX, HOME HEALTH PT, WOUND CARE [facility] # [phone] DWIGHT TORREZ Addendum: 02/26/18 at 1602 by DWIGHT BAUM CM FWW GIVEN TO PATIENT. Addendum: 02/27/18 at 1322 by DWIGHT BAUM CM JAIRO NOTES 13:00 PM RECEIVED A CALL FROM PATIENT CONCERNED ABOUT WHAT TIME HIS IV MEDICATION WILL ARRIVED TO HIS HOME AND ALSO THE NURSE. CALLED [facility] STATED THAT THE [employer]OOF[employer]ER IS ON THE WAY TO HIS HOUSE AND [facility] WILL CALL HIM PRIOR TO VISIT. CALLED PATIENT BACK, INFORMED OF ABOVE NOTES , VERBALIZED UNDERSTANDING. DWIGHT GILL X [phone]
--- NOTE | 2018-02-26 15:10 | CONS ---
Date/Time of Note Date/Time of Note DATE: 02/26/18 TIME: 15:09 Assessment/Plan Assessment/Plan Hospital Course No acute changes, looks comfortable, no fevers Microbiology: Cultures of the fluid growing E. coli Proteus mirabilis and enterococcus and Klebsiella pneumoniae Antimicrobials: Daptomycin, oral Levaquin Physical examination this is a obese well-developed middle-aged man who is awake in no distress. Head atraumatic normocephalic. Neck is supple. Chest rise symmetrical breath sounds clear. Heart: S1-S2. Abdomen obese soft bowel sounds present. Extremities with left foot dressing intact Assessment: 1. Systemic inflammatory response syndrome 2. Left foot cellulitis/abscess, status post I&D 3. Uncontrolled diabetes 4. Obesity 5. Allergy: Rocephin Plan: Patient is doing better, continue antibiotics for another 2 weeks, follow podiatry recommendations Result Diagram: 02/26/18 0657 02/26/18 0657 Results 24hrs Laboratory Tests Test 02/25/18 17:08 02/25/18 20:35 02/26/18 06:54 02/26/18 06:57 Bedside Glucose 143 180 Erythrocyte 75 H Sedimentation Rate White Blood Count 9.9 Red Blood Count 3.35 L Hemoglobin 10.2 L Hematocrit 30.6 L Mean Corpuscular Volume 91.3 Mean Corpuscular 30.4 Hemoglobin Mean Corpuscular 33.3 Hemoglobin Concent Red Cell Distribution 11.9 Width Platelet Count 473 H Mean Platelet Volume 9.3 Immature Granulocytes % 2.800 H Neutrophils % 65.1 Lymphocytes % 21.3 Monocytes % 6.6 Eosinophils % 3.5 Basophils % 0.7 Nucleated Red Blood 0.0 Cells % Immature Granulocytes # 0.280 H Neutrophils # 6.4 Lymphocytes # 2.1 Monocytes # 0.7 Eosinophils # 0.3 Basophils # 0.1 Nucleated Red Blood 0.0 Cells # Sodium Level 139 Potassium Level 3.8 Chloride Level 106 Carbon Dioxide Level 21 Anion Gap 12 Blood Urea Nitrogen 31 H Creatinine 0.91 Est Glomerular Filtrat > 60 Rate mL/min Glucose Level 148 # Calcium Level 9.2 Magnesium Level 2.0 Total Bilirubin 0.0 L Direct Bilirubin 0.00 Indirect Bilirubin 0.0 Aspartate Amino 43 Transf (AST/SGOT) Alanine 91 H Aminotransferase (ALT/SG PT) Alkaline Phosphatase 176 H Creatine Kinase 40 C-Reactive Protein 4.7 H Total Protein 6.5 Albumin 3.0 L Globulin 3.50 H Albumin/Globulin Ratio 0.85 Test 02/26/18 07:59 02/26/18 12:00 Bedside Glucose 141 261 H Consultation Date/Type/Reason Admit Date/Time Feb 16, 2018 at 20:38 Initial Consult Date Type of Consult ID Exam/Review of Systems Vital Signs Vitals Vital Signs Date Temp Pulse Resp B/P (MAP) Pulse Ox O2 O2 Flow FiO2 Time Delivery Rate 02/26/18 98.2 89 16 109/55 97 Room Air 14:20 (73) 02/26/18 21 12:48 Intake and Output 02/25/18 02/25/18 02/26/18 1515:00 23:00 07:00 IntakeIntake Total 3680 ml 400 ml OutputOutput Total 1150 ml 900 ml 600 ml BalanceBalance 2530 ml -500 ml -600 ml Medications Medications Current Medications IV Flush (NS 3 ml) 3 ml PER PROTOCOL IV ; Start 02/16/18 at 22:30 Ondansetron HCl (Zofran Inj) 4 mg Q6H PRN IV NAUSEA AND/OR VOMITING; Start 02/16/18 at 22:30 Acetaminophen (Tylenol Tab) 650 mg Q6H PRN PO PAIN LEVEL 1-3 OR FEVER Last administered on 02/26/18 10:18; Admin Dose 650 MG; Start 02/16/18 at 22:30 Acetaminophen/ Hydrocodone Bitart ([place] (5/325)) 1 tab Q6H PRN PO MODERATE PAIN LEVEL 4-6 Last administered on 02/25/18at 19:13; Admin Dose 1 TAB; Start 02/16/18 at 22:30 Docusate Sodium (Colace) 100 mg Q12H PRN PO CONSTIPATION Last administered on 02/19/18at 02:22; Admin Dose 100 MG; Start 02/16/18 at 22:30 Bisacodyl (Dulcolax) 5 mg DAILY PRN PO CONSTIPATION Last administered on 02/19/18at 02:23; Admin Dose 5 MG; Start 02/16/18 at 22:30 Insulin Aspart (Novolog Insulin Pen) NOVOLOG *MILD* ALGORITHM WITH MEALS BEDTIME SC Last administered on 02/26/18 12:06; Admin Dose 4 UNIT; Start 02/17/18 at 08:00 Miscellaneous Information 1 ea NOTE XX ; Start 02/16/18 at 22:30 Glucose (Glutose) 15 gm Q15M PRN PO DECREASED GLUCOSE; Start 02/16/18 at 22:30 Glucose (Glutose) 22.5 gm Q15M PRN PO DECREASED GLUCOSE; Start 02/16/18 at 22:30 Dextrose (D50w Syringe) 25 ml Q15M PRN IV DECREASED GLUCOSE; Start 02/16/18 at 22:30 Dextrose (D50w Syringe) 50 ml Q15M PRN IV DECREASED GLUCOSE; Start 02/16/18 at 22:30 Glucagon (Glucagen) 1 mg Q15M PRN IM DECREASED GLUCOSE; Start 02/16/18 at 22:30 Glucose (Glutose) 15 gm Q15M PRN BUCCAL DECREASED GLUCOSE; Start 02/16/18 at 22:30 Miscellaneous Information (Pending Santyl Order For Wound Care) This patient zimmerman... PRN PRN XX Stage 3/4 wound ; Start 02/17/18 at 04:30 Collagenase (Santyl) 1 applic DAILY TOP Last administered on 02/25/18 08:11; Admin Dose 1 APPLIC; Start 02/17/18 at 09:00 Collagenase (Santyl) 1 applic PRN PRN TOP WHEN SOILED; Start 02/17/18 at 05:00 Heparin Sodium (Porcine) (Heparin (5000 Units/1ml)) 5,000 unit Q12 SC Last administered on 02/26/18 09:30; Admin Dose 5,000 UNIT; Start 02/17/18 at 21:00 Guaifenesin/ Dextromethorphan (Robitussin Dm Liquid Cup) 10 ml Q4H PRN PO cough Last administered on 02/24/18 16:34; Admin Dose 10 ML; Start 02/18/18 at 12:00 Levalbuterol (Xopenex Neb) 1.25 mg Q4H RESP THERAPY HHN Last administered on 02/26/18 12:48; Admin Dose 1.25 MG; Start 02/19/18 at 01:00 Docusate Sodium (Colace) 200 mg BID PO Last administered on 02/25/18 08:10; Admin Dose 200 MG; Start 02/19/18 at 09:00 Polyethylene Glycol (Miralax) 17 gm DAILY PO Last administered on 02/23/18at 08:12; Admin Dose 17 GM; Start 02/19/18 at 09:00 Insulin Glargine (Lantus) 60 units QHS SC Last administered on 02/25/18 20:38; Admin Dose 60 UNITS; Start 02/19/18 at 21:00 Ascorbic Acid (Vitamin C) 500 mg DAILY PO Last administered on 02/26/18 09:25; Admin Dose 500 MG; Start 02/20/18 at 16:00 Zinc Sulfate (Zinc Sulfate) 220 mg DAILY PO Last administered on 02/26/18 09:25; Admin Dose 220 MG; Start 02/20/18 at 16:00; Stop 03/03/18 at 15:59 Multivitamins Therapeutic (Theragran) 1 tab DAILY PO Last administered on 02/26/18 09:25; Admin Dose 1 TAB; Start 02/20/18 at 16:00 Glipizide (Glucotrol) 5 mg AC BREAKFAST DINNER PO Last administered on 02/26/18 08:02; Admin Dose 5 MG; Start 02/21/18 at 17:35 Sodium Hypochlorite (Dakin'S (Dilute )) 1 applic BID IRR Last administered on 02/26/18 09:25; Admin Dose 1 APPLIC; Start 02/22/18 at 21:00 Insulin Aspart (Novolog Insulin Pen) 7 unit WITH MEALS SC Last administered on 02/26/18 12:06; Admin Dose 7 UNIT; Start 02/24/18 at 11:30 Daptomycin 700 mg/ Sodium Chloride 100 ml @ 200 mls/hr Q24H IVPB Last administered on 02/25/18 17:55; Admin Dose 200 MLS/HR; Start 02/25/18 at 18:00 Levofloxacin (Levaquin) 750 mg DAILY@06 PO Last administered on 02/26/18 05:24; Admin Dose 750 MG; Start 02/26/18 at 06:00 IV Flush (NS 10 ml) 10 ml PRN PRN IV IV PROTOCOL; Start 02/25/18 at 17:30 KITTY DUMONT NP Feb 26, 2018 15:10
--- NOTE | 2018-02-26 16:00 | NUR ---
rn field case manager said that patient can go home any time today after the antibiotics dose .home health arranged for iv antibiotics,picc line care,and wound care as ordered.
--- NOTE | 2018-02-26 16:39 | NUR ---
said that ''i spoke with the patient regarding his home medication including the diabetics tablets,he can continue those meds at home''notified the patient regarding this .he said''ok i have those medication at home,i don't remember the name,i will continue to take''
--- NOTE | 2018-02-26 16:47 | NUR ---
patient received the fww as ordered.
[2018-02-26] MEDS: DAPTOMYCIN 700 MG in SOD CHLORIDE 0.9% 100 ML IVPB SCH (17:12)
--- NOTE | 2018-02-26 17:54 | NUR ---
gave all the prescription,health summary and discharge instruction as ordered.patient verbalized understanding.dc'd the hep lock.keep the picc line for iv antibitics.flushed the lines with normal saline.good blood return.gave extra dressing supplied for wound care at home(home health arranged).patient is eating dinner and getting last dose of antibiotics at this time.arranged the taxi woucher as reqested.
--- NOTE | 2018-02-26 18:50 | NUR ---
ARRANGED THE TAXI AND PATIENT LEFT THE FLOOR WITH STABLE CONDITION VIA WHEEL CHAIR.HE TOOK HIS ALL THE BELONGINS INCLUDING THE NEW WALKER.
== END 2018-02-26 18:47 | disposition home health service (06) | DRG 981 ==
LOC: PP2 20:38
PROVIDERS: ADMIT Internal Medicine; ATTEND Internal Medicine
PROC: 0KBW0ZZ Excision of Left Foot Muscle, Open Approach (ICD-10-PCS; 2018-02-17)
PROC: 0Y9N0ZZ Drainage of Left Foot, Open Approach (ICD-10-PCS; 2018-02-19)
PROC: 0LBW0ZZ Excision of Left Foot Tendon, Open Approach (ICD-10-PCS; 2018-02-20)
PROC: 0KBW0ZZ Excision of Left Foot Muscle, Open Approach (ICD-10-PCS; principal; 2018-02-20 17:00)
PROC: 02HV33Z Insertion of Infusion Device into Superior Vena Cava, Percutaneous Approach (ICD-10-PCS; 2018-02-25)
DX: E11.621 Type 2 diabetes mellitus with foot ulcer (principal); A41.9 Sepsis, unspecified organism; L03.116 Cellulitis of left lower limb; L02.612 Cutaneous abscess of left foot; N17.9 Acute kidney failure, unspecified; I12.9 Hypertensive chronic kidney disease with stage 1 through stage 4 chronic kidney disease, or unspecified chronic kidney disease; E11.22 Type 2 diabetes mellitus with diabetic chronic kidney disease; N18.9 Chronic kidney disease, unspecified; E11.42 Type 2 diabetes mellitus with diabetic polyneuropathy; E11.65 Type 2 diabetes mellitus with hyperglycemia; E66.9 Obesity, unspecified; Z68.32 Body mass index [BMI] 32.0-32.9, adult
CPT/HCPCS: 36569; 71045; 73700; 73718; 76775; 76937; 80048; 80053; 80061; 80069; 80202; 81001; 82550; 82947; 82962; 83036; 83605; 83735; 84100; 84443; 85025; 85651; 86140; 87040; 87070; 87081; 87086; 87102; 87116; 90686; 93922; 94640; 94664; 97110; 97116; 97161; 97530; J1644; J1815; J1956; J2185; J2250; J3010; J3370; J7030; J7040; J7050

== ENCOUNTER 2018-04-29 13:52 | Inpatient (IN) | payer BC ==
[~2018-04-29] VITALS: Ht 188 cm; Wt 108.6 kg
[~2018-04-29 13:52] MED LIST: ASC500 PO; LEVO750T25 PO; MULTI PO; ZINC220C5 PO
[2018-04-29] MEDS ORDERED: CEFEPIME 2GM/50 ML (PMX) 50 ML IVPB STA (15:51)
[2018-04-29] MEDS ORDERED: VANCOMYCIN 1 GM (PMX) 250 ML IVPB ONE (16:00)
[2018-04-29] MEDS ORDERED: FLUC200T52 PO (16:05)
[2018-04-29] MEDS ORDERED: LEVO750T8 PO (16:05)
[2018-04-29] MEDS ORDERED: INSU100I33 SC (16:06)
[2018-04-29] MEDS ORDERED: SIMV20TA PO (16:06)
[2018-04-29] MEDS ORDERED: IBUP-1544 PO (16:07)
[2018-04-29] MEDS ORDERED: GLIP10TA14 PO (16:07)
[2018-04-29] MEDS ORDERED: LISI-471 PO (16:08)
[2018-04-29] MEDS ORDERED: SOD CHLORIDE 0.9% 1,000 ML IV STA (18:11)
[2018-04-29] MEDS ORDERED: SOD CHLORIDE 0.9% 1,000 ML IV SCH (18:17)
--- NOTE | 2018-04-29 18:17 | ERD ---
ER Documentation Chief Complaint Chief Complaint L foot diabetic wound x2.5mo worsening; stated fever at home HPI This is a 57-year-old male who was sent by his wound care nurse because of increasing erythema to his left foot. The patient is a diabetic and has severe loss of tissue due to coalescing ulcers to the bottom of his foot in between his toes with multiple packings. He said his dorsum of the foot started to get red yesterday and the nurse came back out today and it spread several inches beyond the black line that she had drawn to louise the erythema. He said the nurse said he had a fever by touching his forehead but he was afebrile here and did not receive any Tylenol or Motrin. He says the foot does not really hurt. No GI symptoms or other. ROS All systems reviewed and are negative except as per history of present illness. Medications Home Meds Reported Medications Lisinopril* (Lisinopril*) 20 Mg Tablet, 20 MG PO DAILY, #30 TAB 04/29/18 Glipizide* (Glipizide*) 10 Mg Tablet, 10 MG PO AC BREAKFAST DINNER, TAB 04/29/18 Ibuprofen* (Ibuprofen*) 800 Mg Tablet, 800 MG PO Q6H PRN for PAIN, TAB 04/29/18 Insulin Glargine,Hum.rec.anlog (Kayla Feliciano U-100) 100 Unit/1 Ml Insuln.pen, UNIT SC SLIDING SCALE, EA 04/29/18 Simvastatin* (Zocor*) 20 Mg Tablet, 20 MG PO QHS, #30 TAB 04/29/18 Fluconazole* (Fluconazole*) 200 Mg Tablet, 400 MG PO DAILY, TAB 04/29/18 Levofloxacin* (Levofloxacin*) 750 Mg Tablet, 750 MG PO DAILY, TAB 04/29/18 Discontinued Scripts Multivitamins* (Theragran*) 1 Tab Tab, 1 TAB PO DAILY for 30 Days, #30 TAB Prov:JANELL YOO 02/26/18 Ascorbic Acid (Vitamin C) 500 Mg Tab, 500 MG PO DAILY for 30 Days, #30 TAB Prov:JAENLL YOO 02/26/18 Zinc Sulfate* (Zinc Sulfate*) 220 Mg Cap, 220 MG PO DAILY for 30 Days, #30 CAP Prov:JANELL YOO 02/26/18 Levofloxacin* (Levaquin*) 750 Mg Tablet, 750 MG PO DAILY for 14 Days, #14 TAB Prov:JANELL YOO 02/26/18 Allergies Allergies: Coded Allergies: No Known Allergy (Unverified , 04/29/18) PMhx/Soc History of Surgery: Yes (2014, amputation right 2nd toe ) Anesthesia Reaction: No Hx 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 Disorder: No Hx Respiratory Disorders: No Hx Cardiac Disorders: Yes Hx Psychiatric Problems: No Hx Miscellaneous Medical Probl: Yes (DM) Hx Alcohol Use: No Hx Substance Use: No Hx Tobacco Use: No Smoking Status: Never smoker FmHx Family History: No coronary disease Physical Exam Vitals Vital Signs Date Temp Pulse Resp B/P (MAP) Pulse Ox O2 O2 Flow FiO2 Time Delivery Rate 04/29/18 98.0 92 16 146/68 100 14:06 (94) Physical Exam Const: Well-developed, well-nourished Head: Atraumatic, normocephalic Eyes: Normal Conjunctiva, PERRLA, EOMI, normal sclera, no nystagmus ENT: Normal External Ears, Nose and Mouth, moist mucus membranes. Neck: Full range of motion. No meningismus, no lymphadenopathy. Resp: Clear to auscultation bilaterally, no wheezing, rhonchi, rales Cardio: Regular rate and rhythm, no murmurs, S1 S2 present Abd: Soft, non tender x 4, non distended. Normal bowel sounds, no guarding or rebound, no pulsitile abdominal masses or bruits Skin: No petechiae or rashes, no ecchymosis , no maculopapular rash Back: No midline or flank tenderness Ext: No cyanosis, or edema, FROM x 4, the right foot has severe loss of tissue to the bottom of the foot at the metatarsal phalanges there is multiple packings around the great toe and the pad of the foot as well as the plantar surface there is a slight malodorous nose there is a erythema to the dorsum of the foot with some mild swelling neurovascularly intact x 4 Neur: Awake and alert, STR 5/5 x 4, sensation intact x 4, no focal findings, cerebellum intact Psych: Normal Mood and Affect Result Diagram: 04/29/18 1615 04/29/18 1615 Results 24 hrs Laboratory Tests Test 04/29/18 16:15 White Blood Count 18.3 10^3/ul Red Blood Count 3.90 10^6/ul Hemoglobin 11.0 g/dl Hematocrit 33.7 % Mean Corpuscular Volume 86.4 fl Mean Corpuscular Hemoglobin 28.2 pg Mean Corpuscular Hemoglobin Concent 32.6 g/dl Red Cell Distribution Width 13.9 % Platelet Count 417 10^3/UL Mean Platelet Volume 9.2 fl Immature Granulocytes % 0.700 % Neutrophils % 83.4 % Lymphocytes % 8.9 % Monocytes % 5.8 % Eosinophils % 0.9 % Basophils % 0.3 % Nucleated Red Blood Cells % 0.0 /100WBC Immature Granulocytes # 0.120 10^3/ul Neutrophils # 15.2 10^3/ul Lymphocytes # 1.6 10^3/ul Monocytes # 1.1 10^3/ul Eosinophils # 0.2 10^3/ul Basophils # 0.1 10^3/ul Nucleated Red Blood Cells # 0.0 10^3/ul Sodium Level 140 mmol/L Potassium Level 4.7 mmol/L Chloride Level 119 mmol/L Carbon Dioxide Level 7 mmol/L Anion Gap 14 Blood Urea Nitrogen 85 mg/dl Creatinine 2.23 mg/dl Est Glomerular Filtrat Rate mL/min 31 mL/min Glucose Level 206 mg/dl Calcium Level 10.3 mg/dl Total Bilirubin 0.0 mg/dl Direct Bilirubin 0.00 mg/dl Indirect Bilirubin 0.0 mg/dl Aspartate Amino Transf (AST/SGOT) 12 IU/L Alanine Aminotransferase (ALT/SGPT) 17 IU/L Alkaline Phosphatase 79 IU/L Total Protein 8.0 g/dl Albumin 3.8 g/dl Globulin 4.20 g/dl Albumin/Globulin Ratio 0.90 Current Medications Medications Dose Sig/Zheng Start Time Status Last (Trade) Ordered Route PRN Stop Time Admin Dose Reason Admin Cefepime HCl 50 ml @ ONCE STAT 04/29/18 DC 04/29/18 100 mls/hr IVPB 15:51 04/29/18 16:14 16:20 Vancomycin 250 ml @ ONCE ONCE 04/29/18 DC 04/29/18 HCl 125 mls/hr IVPB 16:00 04/29/18 16:14 17:59 Procedures/MDM Ordering MD: TREMAYNE CUNHA DO Location: E/R Room/Bed: PROCEDURE: XR Left Foot. CLINICAL INDICATION: osteo wound infection TECHNIQUE: AP, lateral and oblique views of the left foot was obtained. The images were reviewed on a PACS workstation. COMPARISON: DR GONZALEZ 02/17/2018 FINDINGS: Extensive erosive changes of the great toe distal and proximal phalanges. There are also erosive changes centered at the second and possibly third MTP joints involving the bases of the proximal phalanges and distal metatarsal heads. Prominent forefoot soft tissue swelling with air. No acute abnormality of the remainder of the foot. IMPRESSION: Findings consistent with osteomyelitis at the great toe proximal and distal phalanges, the second proximal phalanx and distal metatarsal, and possibly the third proximal phalanx and distal metatarsal. RPTAT: XX Physician Jaylin Date Time Electronically viewed and signed by Cleopatra Borden Physician on 04/29/2018 16:43 RF/ CC: TREMAYNE CUNHA DO [id number] Patient has osteomyelitis on his x-ray had blood cultures then was given vancomycin and cefepime IV. Also has severe prerenal azotemia with elevated white blood count with acidosis, blood sugars 206. The patient is clinically very well-appearing does not reflec t these laboratory evaluations. Will admit to panel he will need to be admitted for osteomyelitis and IV fluids and correction of his electrolytes. He does not meet sepsis criteria Departure Diagnosis: Primary Impression: Osteomyelitis Osteomyelitis type: unspecified type Osteomyelitis location: foot Laterality: left Qualified Codes: M86.9 - Osteomyelitis, unspecified Additional Impression: RTA (renal tubular acidosis) Condition: Stable TREMAYNE CUNHA DO Apr 29, 2018 18:17
[2018-04-29] MEDS ORDERED: ONDANSETRON 4 MG INJ IV PRN (18:30)
[2018-04-29] MEDS ORDERED: ACETAMINOPHEN 325 MG TAB PO PRN (18:30)
--- NOTE | 2018-04-29 18:58 | HP ---
Date/Time of Note Date/Time of Note DATE: 04/29/18 TIME: 18:43 Assessment/Plan VTE Prophylaxis Pharmacological prophylaxis: heparin Lines/Catheters IV Catheter Type (from Nrs): Saline Lock Assessment/Plan Hospital Course 57 yo male with DMII, PAD recently treated with 2 months of abx for OM who presents again with continued OM and inflamation of foot concerning for abscess. Also with ALESSANDRO and severe metabolic acidosis ALESSANDRO with metabolic acidosis: - Presumably related to ibuprofen use with RTA type 1. Urine lytes - Trend with fluids - Hold NSAIDs - Renal consult - Bicarbonate administration - Fluid challenge OM of foot and concern for SSTI: - MRI of foot - Has just completed course of dapto/levaquin/fluconazole. Will defer further abx to ID who has been consulted - Podiatry consulted for surgical management DMII: - Basal/bolus insulin Result Diagram: 04/29/18 1615 04/29/18 1615 Results 24hrs Laboratory Tests Test 04/29/18 16:15 White Blood Count 18.3 #H Red Blood Count 3.90 L Hemoglobin 11.0 L Hematocrit 33.7 L Mean Corpuscular Volume 86.4 Mean Corpuscular Hemoglobin 28.2 L Mean Corpuscular Hemoglobin Concent 32.6 Red Cell Distribution Width 13.9 Platelet Count 417 H Mean Platelet Volume 9.2 Immature Granulocytes % 0.700 H Neutrophils % 83.4 H Lymphocytes % 8.9 L Monocytes % 5.8 Eosinophils % 0.9 Basophils % 0.3 Nucleated Red Blood Cells % 0.0 Immature Granulocytes # 0.120 H Neutrophils # 15.2 H Lymphocytes # 1.6 Monocytes # 1.1 H Eosinophils # 0.2 Basophils # 0.1 Nucleated Red Blood Cells # 0.0 Sodium Level 140 Potassium Level 4.7 Chloride Level 119 H Carbon Dioxide Level 7 *L Anion Gap 14 H Blood Urea Nitrogen 85 H Creatinine 2.23 H Est Glomerular Filtrat Rate mL/min 31 L Glucose Level 206 Calcium Level 10.3 H Total Bilirubin 0.0 L Direct Bilirubin 0.00 Indirect Bilirubin 0.0 Aspartate Amino Transf (AST/SGOT) 12 L Alanine Aminotransferase (ALT/SGPT) 17 Alkaline Phosphatase 79 Total Protein 8.0 Albumin 3.8 Globulin 4.20 H Albumin/Globulin Ratio 0.90 HPI/ROS Admit Date/Time Admit Date/Time Hx of Present Illness 57 yo male with h/o DMII and PAD with h/o OM with inflammed L foot Patient recently admitted for OM of affected foot. Underwent debridement. Discharge to complete 6 weeks of IV abx (dapto) and levaquin PO. Seen in [facility] and continued on levaquin and fluconazole. Continues on these now. Over past two days foot has become acutely painful and inflamed for which he presents today. Found to be in renal failure. Admits to taking NSAIDs everyday at least once. Normal urine amount. No LUTS. ROS Constitutional: no complaints, improved Eyes: no complaints ENT: no complaints Respiratory: no complaints Cardiovascular: no complaints Gastrointestinal: no complaints Genitourinary: no complaints Musculoskeletal: no complaints Skin: no complaints Neurologic: no complaints Endocrine: no complaints Lymphatic: no complaints Psychological: no complaints, nl mood/affect Immunologic: no complaints PMH/Family/Social Past Medical History Medical History: diabetes Medications Current Medications Sodium Chloride 1,000 ml @ 1,000 mls/hr Q1H STAT IV Last administered on 04/29/18at 18:25; Admin Dose 1,000 MLS/HR; Start 04/29/18 at 18:11; Stop 04/29/18 at 19:10 Sodium Chloride 1,000 ml @ 80 mls/hr [id number] IV ; Start 04/29/18 at 18:17; Stop 04/30/18 at 06:46 Ondansetron HCl (Zofran Inj) 4 mg BRIDGE ORDER PRN IV NAUSEA/VOMITING; Start 04/29/18 at 18:30; Stop 04/30/18 at 18:29 Acetaminophen (Tylenol Tab) 650 mg ER BRIDGE PRN PO .MILD PAIN 1-3 OR TEMP; Start 04/29/18 at 18:30; Stop 04/30/18 at 18:29 Coded Allergies: No Known Allergy (Unverified , 04/29/18) Past Surgical History Past Surgical Hx: no surgical history Family History Significant Family History: no pertinent family hx Social History Alcohol Use: none Smoking Status: Never smoker Drug Use: none Exam/Review of Systems Vital Signs Vitals Vital Signs Date Temp Pulse Resp B/P (MAP) Pulse Ox O2 O2 Flow FiO2 Time Delivery Rate 04/29/18 98.0 92 16 146/68 100 14:06 (94) Exam Exam Well appearing, no distress RRR CTAB Soft nt nd L foot swollen, tender, inflamed. Large ulceration over lateral side of great toe. Macerated toes TRU LANIER MD Apr 29, 2018 18:58
[2018-04-29] MEDS ORDERED: NACL 0.9% 3 ML SYG IV SCH (19:00)
[2018-04-29] MEDS ORDERED: NA BICARBONATE 8.4% 50 ML SYG IV ONE (19:00)
[2018-04-29] MEDS ORDERED: VANCOMYCIN IV PER PHARMACY XX SCH (19:30)
[2018-04-29] MEDS: VANCOMYCIN 1 GM 250 ML IVPB ONE ×2 (19:30→22:27)
[2018-04-29 20:54] VITALS: BP 125/68; PULSE 88; RESP 20
[2018-04-29 21:00] VITALS: Ht 188 cm; Wt 108.6 kg
[2018-04-29] MEDS: HYDROCODONE/APAP (5/325) TAB PO PRN (21:03)
--- NOTE | 2018-04-29 21:52 | CONS ---
Assessment/Plan Assessment/Plan Assessment/Plan (Daily) Left foot diabetic ulcer Left foot osteomyelitis Left foot cellulitis DM2 with peripheral neuropathy ALESSNADRO Plan: Consent was obtained for bedside excisional debridement of left foot skin/subQ/muscle/fascia of diabetic ulcer sites using a scalpel and pickup/scissors. Biofilm, fibrotic tissue, and purulence was removed from the ulcer sites. Greater than 20cm2 of area was debrided. Wound Cultures obtained. Copious irrigation of wound sites. Betadine 4x4 gauze, kerlix and jennifer wrap dressings to ulceration sites, and betadine 4x4 gauze in between toes. Offload heels with pillows. X-rays reviewed with noted signs of osteomyelitis, recommend ID consult for abx recommendations. Previous cultures showed VRE, e.coli and yuliana albicans. IV abx and antifungal therapy initiated. Non invasive arterial studies and MRI pending. Patient will likely need further OR debridement and will coordinate a time. Continue with daily dressing changes. Consultation Date/Type/Reason Admit Date/Time Date/Time of Note DATE: 04/29/18 TIME: 21:52 Hx of Present Illness 57 y/o diabetic male who was being followed in outpatient wound clinic had completed his course of IV daptomycin/levofloxacin and oral fluconazole, presents to the floor with worsening ulceration of the left foot. Patient noted in past 2 days there was increased drainage, swelling, and redness to the left foot ulceration sites. Patient had felt fevers, but in the ER was afebrile. Patient reports 3/10 dull pain to the left foot and is non-radiating. Patient has been seen by his home health nurse who had recommended to report to the emergency room. ROS Constitutional: no complaints, improved Eyes: no complaints ENT: no complaints Respiratory: no complaints Cardiovascular: no complaints Gastrointestinal: no complaints Genitourinary: no complaints Musculoskeletal: no complaints Skin: no complaints Neurologic: no complaints Endocrine: no complaints Lymphatic: no complaints Psychological: no complaints, nl mood/affect Immunologic: no complaints Past Medical History Medical History: diabetes Home Meds Reported Medications Lisinopril* (Lisinopril*) 20 Mg Tablet, 20 MG PO DAILY, #30 TAB 04/29/18 Glipizide* (Glipizide*) 10 Mg Tablet, 10 MG PO AC BREAKFAST DINNER, TAB 04/29/18 Ibuprofen* (Ibuprofen*) 800 Mg Tablet, 800 MG PO Q6H PRN for PAIN, TAB 04/29/18 Insulin Glargine,Hum.rec.anlog (Drewaglpao Mader[place]ith U-100) 100 Unit/1 Ml Insuln.pen, UNIT SC SLIDING SCALE, EA 04/29/18 Simvastatin* (Zocor*) 20 Mg Tablet, 20 MG PO QHS, #30 TAB 04/29/18 Fluconazole* (Fluconazole*) 200 Mg Tablet, 400 MG PO DAILY, TAB 04/29/18 Levofloxacin* (Levofloxacin*) 750 Mg Tablet, 750 MG PO DAILY, TAB 04/29/18 Discontinued Scripts Multivitamins* (Theragran*) 1 Tab Tab, 1 TAB PO DAILY for 30 Days, #30 TAB Prov:JANELL YOO 02/26/18 Ascorbic Acid (Vitamin C) 500 Mg Tab, 500 MG PO DAILY for 30 Days, #30 TAB Prov:JANELL YOO 02/26/18 Zinc Sulfate* (Zinc Sulfate*) 220 Mg Cap, 220 MG PO DAILY for 30 Days, #30 CAP Prov:JANELL YOO 02/26/18 Levofloxacin* (Levaquin*) 750 Mg Tablet, 750 MG PO DAILY for 14 Days, #14 TAB Prov:JANELL YOO 02/26/18 Medications Current Medications Sodium Chloride 1,000 ml @ 80 mls/hr [id number] IV ; Start 04/29/18 at 18:17; Stop 04/30/18 at 06:46 Ondansetron HCl (Zofran Inj) 4 mg BRIDGE ORDER PRN IV NAUSEA/VOMITING; Start 04/29/18 at 18:30; Stop 04/30/18 at 18:29 Acetaminophen (Tylenol Tab) 650 mg ER BRIDGE PRN PO .MILD PAIN 1-3 OR TEMP; Start 04/29/18 at 18:30; Stop 04/30/18 at 18:29 IV Flush (NS 3 ml) 3 ml PER PROTOCOL IV ; Start 04/29/18 at 19:00 Acetaminophen/ Hydrocodone Bitart ([place] (5/325)) 2 tab Q6H PRN PO .SEVERE PAIN 7-10 Last administered on 04/29/18at 21:03; Admin Dose 2 TAB; Start 04/29/18 at 19:00 Heparin Sodium (Porcine) (Heparin (5000 Units/1ml)) 5,000 unit Q12 SC ; Start 04/29/18 at 21:00 Vancomycin HCl (Vanco Iv Per Pharmacy) VANCOMYCIN PER PHARMACY PER PROTOCOL XX ; Start 04/29/18 at 19:30 Vancomycin HCl 1.75 gm/Sodium Chloride 500 ml @ 125 mls/hr Q24H IVPB ; Start 04/30/18 at 16:00 Allergies: Coded Allergies: No Known Allergy (Unverified , 04/29/18) Past Surgical History Previous foot debridements Family History Significant Family History: no pertinent family hx Social History Alcohol Use: none Smoking Status: Never smoker Drug Use: none Exam/Review of Systems Exam Vitals Vital Signs Date Temp Pulse Resp B/P (MAP) Pulse Ox O2 O2 Flow FiO2 Time Delivery Rate 04/29/18 97.6 88 20 125/68 100 20:54 (87) 04/29/18 Room Air 18:43 Exam DP/PT pulses palpable Absent protective sensations Left plantar hallux ulceration mixed fibrotic and granular wound base 4 x 2 x 1.5cm which probes to bone and communicates with dorsal hallux ulceration site 2 x 1 x 1.5cm. There is surrounding erythema and maceration noted to the forefoot area. Purulent drainage appreciated to the left hallux ulceration sites There are ulcerations between the lesser digits on the medial and lateral aspects of digits 2-4 mixed fibrotic and granular wound base 0.2 x 0.2 x 0.2cm and interdigital maceration appreciated. There is deep tissue injury noted to the left 5th digit with maceration noted. Ulceration noted to the medial aspect of the 5th digit 0.4 x 0.3 x 0.1cm Muscle strength 5/5 in all compartments of the foot. Foot X-ray IMPRESSION: Findings consistent with osteomyelitis at the great toe proximal and distal phalanges, the second proximal phalanx and distal metatarsal, and possibly the third proximal phalanx and distal metatarsal. Results Result Diagram: 04/29/18 1615 04/29/18 1615 Results 24hrs Laboratory Tests Test 04/29/18 16:15 04/29/18 20:09 White Blood Count 18.3 #H Red Blood Count 3.90 L Hemoglobin 11.0 L Hematocrit 33.7 L Mean Corpuscular Volume 86.4 Mean Corpuscular Hemoglobin 28.2 L Mean Corpuscular Hemoglobin Concent 32.6 Red Cell Distribution Width 13.9 Platelet Count 417 H Mean Platelet Volume 9.2 Immature Granulocytes % 0.700 H Neutrophils % 83.4 H Lymphocytes % 8.9 L Monocytes % 5.8 Eosinophils % 0.9 Basophils % 0.3 Nucleated Red Blood Cells % 0.0 Immature Granulocytes # 0.120 H Neutrophils # 15.2 H Lymphocytes # 1.6 Monocytes # 1.1 H Eosinophils # 0.2 Basophils # 0.1 Nucleated Red Blood Cells # 0.0 Erythrocyte Sedimentation Rate 90 H Sodium Level 140 Potassium Level 4.7 Chloride Level 119 H Carbon Dioxide Level 7 *L Anion Gap 14 H Blood Urea Nitrogen 85 H Creatinine 2.23 H Est Glomerular Filtrat Rate mL/min 31 L Glucose Level 206 Calcium Level 10.3 H Total Bilirubin 0.0 L Direct Bilirubin 0.00 Indirect Bilirubin 0.0 Aspartate Amino Transf (AST/SGOT) 12 L Alanine Aminotransferase (ALT/SGPT) 17 Alkaline Phosphatase 79 C-Reactive Protein 15.7 H Total Protein 8.0 Albumin 3.8 Globulin 4.20 H Albumin/Globulin Ratio 0.90 Bedside Glucose 144 Medications Medication Current Medications Sodium Chloride 1,000 ml @ 80 mls/hr [id number] IV ; Start 04/29/18 at 18:17; Stop 04/30/18 at 06:46 Ondansetron HCl (Zofran Inj) 4 mg BRIDGE ORDER PRN IV NAUSEA/VOMITING; Start 04/29/18 at 18:30; Stop 04/30/18 at 18:29 Acetaminophen (Tylenol Tab) 650 mg ER BRIDGE PRN PO .MILD PAIN 1-3 OR TEMP; Start 04/29/18 at 18:30; Stop 04/30/18 at 18:29 IV Flush (NS 3 ml) 3 ml PER PROTOCOL IV ; Start 04/29/18 at 19:00 Acetaminophen/ Hydrocodone Bitart ([place] (5/325)) 2 tab Q6H PRN PO .SEVERE PAIN 7-10 Last administered on 04/29/18at 21:03; Admin Dose 2 TAB; Start 04/29/18 at 19:00 Heparin Sodium (Porcine) (Heparin (5000 Units/1ml)) 5,000 unit Q12 SC ; Start 04/29/18 at 21:00 Vancomycin HCl (Vanco Iv Per Pharmacy) VANCOMYCIN PER PHARMACY PER PROTOCOL XX ; Start 04/29/18 at 19:30 Vancomycin HCl 1.75 gm/Sodium Chloride 500 ml @ 125 mls/hr Q24H IVPB ; Start 04/30/18 at 16:00 NIMISHA HENNING DPM Apr 29, 2018 21:52
[2018-04-29] MEDS: HEPARIN 5,000 UNIT/1 ML VIAL SC SCH (22:26)
[2018-04-29] MEDS: LEVOFLOXACIN 500MG/D5W (PMX) 100 ML IVPB SCH (22:48)
[2018-04-29] MEDS: FLUCONAZOLE 200 MG TAB PO SCH (23:38)
[2018-04-30 02:54] VITALS: BP 109/64; PULSE 78; RESP 20
[2018-04-30] MEDS ORDERED: VANCOMYCIN HCL 1.25 GM in SOD CHLORIDE 0.9% 250 ML IVPB SCH (04:00)
[2018-04-30] MEDS: ONDANSETRON 4 MG INJ IV PRN ×3 (05:06→17:19)
[2018-04-30 08:00] VITALS: BP 111/61; PULSE 77; RESP 20
[2018-04-30] MEDS: FLUCONAZOLE 200 MG TAB PO SCH (08:20)
[2018-04-30] MEDS: HEPARIN 5,000 UNIT/1 ML VIAL SC SCH ×2 (08:22→20:12)
--- NOTE | 2018-04-30 10:05 | CONS ---
DATE OF ADMISSION: 04/29/2018 DATE OF CONSULTATION: 04/30/2018 TYPE OF CONSULTATION: Nephrology. REASON FOR CONSULTATION: Acute kidney injury. PHYSICIAN REQUESTING CONSULTATION: Dr. Mancini. HISTORY OF PRESENT ILLNESS: This is a 57-year-old male with a past medical history of diabetes, hist ory of peripheral vascular disease, history of chronic kidney disease with previous baseline creatini ne around 1 to 1.2 mg/dL, who presents to [facility] for evaluation of the inflamma tion and pain of his left foot. The patient recently underwent debridement of his left foot. The pa omid was on IV antibiotic therapy. He was then followed up by the Am[facility] Prevention [facility]. The patient, however, states over the last couple days, he has been having increased pain in his lower ex tremities. The patient has been taking multiple NSAIDs daily for pain control. As a result of worse charlene pain, patient came to the emergency room for evaluation. Upon arrival, patient had laboratory d sohail drawn, which showed a white count 18.3, hemoglobin 11, BUN 85, creatinine 2.23. The patient was given IV fluids, IV antibiotics and admitted to med/surg for evaluation. In terms of the patient's renal history, the patient has had previous baseline creatinines ranging fr om 1.0 to 1.4 mg/dL. On admission, the patient has creatinine of 2.23 mg/dL, which is improved to 1. 88 mg/dL. The patient states that his urinary output has been adequate. He denies any rashes, froth y urine, any hematuria. PAST MEDICAL HISTORY: History of diabetes, history of chronic kidney disease. PAST SURGICAL HISTORY: Status post amputation of right toe. FAMILY HISTORY: No family history of kidney disease. SOCIAL HISTORY: He does not drink, smoke or do drugs. MEDICATIONS: The patient's medications have been reviewed. REVIEW OF SYSTEMS: A 14-point review of systems was conducted. Pertinent positives stated in HPI, o therwise negative. PHYSICAL EXAMINATION: VITAL SIGNS: Blood pressure is 111/61, respirations 20, pulse 77, temperature 98.8. HEENT: Head is normocephalic. NECK: Supple. HEART: Regular rate. LUNGS: Show diminished breath sounds at the base. ABDOMEN: Soft, nontender to palpation. No rebound or guarding. EXTREMITIES: Negative for clubbing, cyanosis. Positive edema and swelling in the left leg with dres sing clean, dry, and intact. DERMATOLOGIC: No rashes. MUSCULOSKELETAL: No joint effusion. NEUROLOGIC: No focal deficit. MEDICATIONS: The patient's medications have been reviewed. LABORATORY DATA: Shows sodium 142, potassium 4.0, chloride 124, bicarbonate 8, BUN 83, creatinine 1. 88. Hemoglobin A1c is 9.2. White count 10.5, hemoglobin 10.2, platelet count is 386. Urinalysis sh ows proteinuria and positive pyuria, no hematuria. IMAGING STUDIES: Reviewed. ASSESSMENT AND PLAN: This is a 57-year-old male who presents with: 1. Nonoliguric acute kidney injury with previous baseline creatinine of around 1.0 to 1.5 mg/dL. Et iology of current acute kidney injury is multifactorial, possibly due to acute tubular necrosis due t o NSAID use, hemodynamics, other possibilities such as interstitial nephritis is a consideration. Pl an at this point is to do a full evaluation. We will repeat a UA with microanalysis, check urine tamera ctrolytes. We would recommend to continue gentle IV hydration. Agree with bicarbonate drip. We wou ld otherwise continue current treatment plans, supportive care, renally dose all medicines. 2. Hyperchloremic metabolic acidosis. Etiology is possibly multifactorial secondary to acute kidney injury, possible renal tubular acidosis in the setting of NSAID use is a consideration, i.e., RTA ty pe 1. The possibility of a proximal RTA is also a consideration. Plan is to do a full evaluation. We will check a UA with microanalysis. Check urinary pH. We will check a urinary anion gap. Agree with bicarbonate drip. We will monitor closely. 3. Anemia. Continue to monitor hemoglobin and hematocrit levels. 4. Mineral bone disorder, monitor calcium and phosphorus levels. 5. Osteomyelitis of the patient's foot. Continue current medical management, continue antibiotic th erapy. Follow up with podiatry. 6. Diabetes. Continue current insulin regimen. Thank you, Dr. Mancini, for this interesting consult. It will be a pleasure to follow the patient wi th you throughout the hospital course. Dictated By: JACQUI DURÁN DO NR/NTS Conf#: [id number] DID#: [id number] CC: TRU MANCINI MD; KATHERINE DYER MD; JACQUI DURÁN DO;*EndCC*
[2018-04-30] MEDS: SODIUM BICARBONATE (IV ADD) 150 MEQ in DEXTROSE 5% 1,000 ML IV SCH ×4 (11:06→23:50)
--- NOTE | 2018-04-30 11:54 | PN ---
Date/Time of Note Date/Time of Note DATE: 04/30/18 TIME: 11:33 Assessment/Plan VTE [place]axis [place] [facility] [place]: 8 [place] [facility] [place] Yes Pharmacological prophylaxis: heparin Lines/Catheters IV Catheter Type (from [facility]): Peripheral IV Urinary Cath still in place: No Assessment/Plan Assessment/Plan 1. Left foot infection with osteomyelitis, s/p bedside debridement, arranging for surgical debridement, on antibiotics with vancomycin, levaquin and diflucan, follow up with mill helper 2. Nonoliguric acute kidney injury with previous baseline creatinine of around 1.0 to 1.5 mg/dL. Etiology of current acute kidney injury is multifactorial, prob ATN, IVF, follow up with nephrology 3. Hyperchloremic metabolic acidosis. Etiology is possibly multifactorial secondary to acute kidney injury, possible renal tubular acidosis in the setting of NSAID use is a consideration, follow up with nephrology 4. Anemia. chronic, continue to monitor hemoglobin and hematocrit levels. 5. Diabetes. Continue current insulin regimen. 6. DVT prophylaxis: heparin Result Diagram: 04/30/18 0448 04/30/18 0448 Results 24hrs Laboratory Tests Test 04/29/18 16:05 04/29/18 16:15 04/29/18 20:09 04/30/18 04:48 Hemoglobin A1c 9.0 H 9.2 H White Blood Count 18.3 #H 10.5 # Red Blood Count 3.90 L 3.67 L Hemoglobin 11.0 L 10.2 L Hematocrit 33.7 L 31.4 L Mean Corpuscular 86.4 85.6 Volume Mean Corpuscular 28.2 L 27.8 L Hemoglobin Mean Corpuscular 32.6 32.5 Hemoglobin Concent Red Cell 13.9 13.9 Distribution Width Platelet Count 417 H 386 Mean Platelet 9.2 9.5 Volume Immature 0.700 H 0.400 Granulocytes % Neutrophils % 83.4 H 87.4 H Lymphocytes % 8.9 L 7.5 L Monocytes % 5.8 2.2 Eosinophils % 0.9 2.3 Basophils % 0.3 0.2 Nucleated Red 0.0 0.0 Blood Cells % Immature 0.120 H 0.040 H Granulocytes # Neutrophils # 15.2 H 9.2 H Lymphocytes # 1.6 0.8 Monocytes # 1.1 H 0.2 L Eosinophils # 0.2 0.2 Basophils # 0.1 0.0 Nucleated Red 0.0 0.0 Blood Cells # Erythrocyte 90 H Sedimentation Rate Sodium Level 140 142 Potassium Level 4.7 4.0 Chloride Level 119 H 124 H Carbon Dioxide 7 *L 8 *L Level Anion Gap 14 H 10 Blood Urea 85 H 83 H Nitrogen Creatinine 2.23 H 1.88 H Est Glomerular 31 L 37 L Filtrat Rate mL/min Glucose Level 206 99 # Calcium Level 10.3 H 9.9 Total Bilirubin 0.0 L 0.0 L Direct Bilirubin 0.00 0.00 Indirect Bilirubin 0.0 0.0 Aspartate Amino 12 L 16 Transf (AST/SGOT) Alanine 17 19 Aminotransferase ( ALT/SGPT) Alkaline 79 70 Phosphatase C-Reactive Protein 15.7 H Total Protein 8.0 6.9 # Albumin 3.8 3.2 L Globulin 4.20 H 3.70 H Albumin/Globulin 0.90 0.86 Ratio Bedside Glucose 144 Test 04/30/18 07:30 04/30/18 07:53 04/30/18 08:53 Urine Color YELLOW Urine Clarity CLEAR Urine pH 6.0 Urine Specific 1.015 [place] Urine Ketones NEGATIVE Urine Nitrite NEGATIVE Urine Bilirubin NEGATIVE Urine Urobilinogen NEGATIVE Urine Leukocyte NEGATIVE Esterase Urine Microscopic 0 RBC Urine Microscopic 1 WBC Urine Bacteria FEW A Urine Hemoglobin NEGATIVE Urine Random 77.28 Creatinine Urine Random 51 Sodium Urine Random 50.9 Potassium Urine Glucose NEGATIVE Urine Total 68.0 H Protein Bedside Glucose 86 Blood Gas Specimen Blood arterial Source Arterial Blood 04/30/2018 9:10:06 Date Drawn AM Arterial Blood pH 7.231 *L (Temp corrected) Arterial Blood 18.8 L pCO2 (Temp correct) Arterial Blood pO2 113.9 H (Temp corrected) Arterial Blood 7.7 *L HCO3 Arterial Blood -17.8 L Base Excess Arterial Blood 97.4 Oxygen Saturation Yang Test ACCEPTAB Arterial Blood Gas Left Radial Puncture Site Arterial 0.2 Blood Carboxyhemog lobin Arterial Blood 0.4 Methemoglobin Blood Gas A-a O2 13.3 Differential Oxyhemoglobin 96.8 Percent Blood Gas 37.0 Temperature Blood Gas Modality ROOM AIR FiO2 21.0 Blood Gas Critical CSILVEO RN Value Read Back Blood Gas Notified TM Whom Blood Gas Notified 04/30/2018 9:19:38 Time AM Subjective 24 Hr Interval Summary Free Text/Dictation left foot pain, afebrile Exam/Review of Systems Exam Vitals Vital Signs Date Temp Pulse Resp B/P (MAP) Pulse Ox O2 O2 Flow FiO2 Time Delivery Rate 04/30/18 98.8 77 20 111/61 96 08:00 (78) 04/29/18 Room Air 18:43 Intake and Output 04/29/18 04/29/18 04/30/18 1515:00 23:00 07:00 IntakeIntake Total 300 ml 480 ml BalanceBalance 300 ml 480 ml Constitutional: alert, oriented, well developed Psych: no complaints, nl mood/affect Head: normocephalic, atraumatic Eyes: nl conjunctiva, EOMI, nl lids ENMT: nl external ears & nose, nl lips & teeth, nl nasal mucosa & septum Neck: supple, non-tender Respiratory: clear to auscultation, normal air movement; No congested cough, No crackles/rales, No diminished breath sounds, No intercostal retraction, No labored breathing, No respirations, No tactile fremitus, No wheezing, No other Cardiovascular: regular rate and rhythm, nl pulses; No bruits, No diastolic murmur, No edema, No gallop, No irregular rhythm, No jugular venous distention (JVD), No murmurs/extra sounds, No rub, No systolic murmur, No S3, No S4, No other Gastrointestinal: soft, nl liver, spleen, non-tender; No ascites, No bowel sounds, No distended, No firm, No hepatomegaly, No mass, No rebound or guarding, No splenomegaly, No surgical scars, No tender, No other Extremities: other (left foot wounds) 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: ORDER BOOKER II-XII intact, nl mental status, nl speech, nl strength Results Results 24hrs Laboratory Tests Test 04/29/18 16:05 04/29/18 16:15 04/29/18 20:09 04/30/18 04:48 Hemoglobin A1c 9.0 H 9.2 H White Blood Count 18.3 #H 10.5 # Red Blood Count 3.90 L 3.67 L Hemoglobin 11.0 L 10.2 L Hematocrit 33.7 L 31.4 L Mean Corpuscular 86.4 85.6 Volume Mean Corpuscular 28.2 L 27.8 L Hemoglobin Mean Corpuscular 32.6 32.5 Hemoglobin Concent Red Cell 13.9 13.9 Distribution Width Platelet Count 417 H 386 Mean Platelet 9.2 9.5 Volume Immature 0.700 H 0.400 Granulocytes % Neutrophils % 83.4 H 87.4 H Lymphocytes % 8.9 L 7.5 L Monocytes % 5.8 2.2 Eosinophils % 0.9 2.3 Basophils % 0.3 0.2 Nucleated Red 0.0 0.0 Blood Cells % Immature 0.120 H 0.040 H Granulocytes # Neutrophils # 15.2 H 9.2 H Lymphocytes # 1.6 0.8 Monocytes # 1.1 H 0.2 L Eosinophils # 0.2 0.2 Basophils # 0.1 0.0 Nucleated Red 0.0 0.0 Blood Cells # Erythrocyte 90 H Sedimentation Rate Sodium Level 140 142 Potassium Level 4.7 4.0 Chloride Level 119 H 124 H Carbon Dioxide 7 *L 8 *L Level Anion Gap 14 H 10 Blood Urea 85 H 83 H Nitrogen Creatinine 2.23 H 1.88 H Est Glomerular 31 L 37 L Filtrat Rate mL/min Glucose Level 206 99 # Calcium Level 10.3 H 9.9 Total Bilirubin 0.0 L 0.0 L Direct Bilirubin 0.00 0.00 Indirect Bilirubin 0.0 0.0 Aspartate Amino 12 L 16 Transf (AST/SGOT) Alanine 17 19 Aminotransferase ( ALT/SGPT) Alkaline 79 70 Phosphatase C-Reactive Protein 15.7 H Total Protein 8.0 6.9 # Albumin 3.8 3.2 L Globulin 4.20 H 3.70 H Albumin/Globulin 0.90 0.86 Ratio Bedside Glucose 144 Test 04/30/18 07:30 04/30/18 07:53 04/30/18 08:53 Urine Color YELLOW Urine Clarity CLEAR Urine pH 6.0 Urine Specific 1.015 [place] Urine Ketones NEGATIVE Urine Nitrite NEGATIVE Urine Bilirubin NEGATIVE Urine Urobilinogen NEGATIVE Urine Leukocyte NEGATIVE Esterase Urine Microscopic 0 RBC Urine Microscopic 1 WBC Urine Bacteria FEW A Urine Hemoglobin NEGATIVE Urine Random 77.28 Creatinine Urine Random 51 Sodium Urine Random 50.9 Potassium Urine Glucose NEGATIVE Urine Total 68.0 H Protein Bedside Glucose 86 Blood Gas Specimen Blood arterial Source Arterial Blood 04/30/2018 9:10:06 Date Drawn AM Arterial Blood pH 7.231 *L (Temp corrected) Arterial Blood 18.8 L pCO2 (Temp correct) Arterial Blood pO2 113.9 H (Temp corrected) Arterial Blood 7.7 *L HCO3 Arterial Blood -17.8 L Base Excess Arterial Blood 97.4 Oxygen Saturation Yang Test ACCEPTAB Arterial Blood Gas Left Radial Puncture Site Arterial 0.2 Blood Carboxyhemog lobin Arterial Blood 0.4 Methemoglobin Blood Gas A-a O2 13.3 Differential Oxyhemoglobin 96.8 Percent Blood Gas 37.0 Temperature Blood Gas Modality ROOM AIR FiO2 21.0 Blood Gas Critical CSILVEO RN Value Read Back Blood Gas Notified TM Whom Blood Gas Notified 04/30/2018 9:19:38 Time AM Medications Medication Current Medications IV Flush (NS 3 ml) 3 ml PER PROTOCOL IV ; Start 04/29/18 at 19:00 Acetaminophen/ Hydrocodone Bitart ([place] (5/325)) 2 tab Q6H PRN PO .SEVERE PAIN 7-10 Last administered on 04/29/18 21:03; Admin Dose 2 TAB; Start 04/29/18 at 19:00 Heparin Sodium (Porcine) (Heparin (5000 Units/1ml)) 5,000 unit Q12 SC Last administered on 04/30/18 08:22; Admin Dose 5,000 UNIT; Start 04/29/18 at 21:00 Fluconazole (Diflucan) 200 mg DAILY PO Last administered on 04/30/18 08:20; Admin Dose 200 MG; Start 04/29/18 at 22:00 Levofloxacin/ Dextrose 100 ml @ 100 mls/hr Q24H IVPB Last administered on 04/29/18 22:48; Admin Dose 100 MLS/HR; Start 04/29/18 at 22:00 Ondansetron HCl (Zofran Inj) 4 mg Q4H PRN IV NAUSEA AND/OR VOMITING Last administered on 04/30/18 05:06; Admin Dose 4 MG; Start 04/30/18 at 05:00 Sodium Bicarbonate 150 meq/Dextrose 1,000 ml @ 150 mls/hr Q6H40M IV Last administered on 04/30/18 11:06; Admin Dose 150 MLS/HR; Start 04/30/18 at 10:30 Insulin Glargine (Lantus) 16 units DAILY@2000 SC ; Start 04/30/18 at 20:00 Insulin Aspart (Novolog Insulin Pen) 5 unit WITH MEALS SC ; Start 04/30/18 at 11:30 Insulin Aspart (Novolog Insulin Pen) NOVOLOG *MILD* ALGORITHM WITH MEALS BEDT AMY MS ; Start 04/30/18 at 12:00 KATHERINE DYER MD Apr 30, 2018 11:44
[2018-04-30] MEDS: INSULIN ASPART [NOVOLOG] 3 ML PEN SC SCH ×5 (12:44→20:11)
[2018-04-30 14:00] VITALS: BP 120/64; PULSE 84; RESP 20
[2018-04-30] MEDS: SODIUM HYPOCHLORITE (1/40) 1 APPLIC BTL IRR SCH (15:02)
--- NOTE | 2018-04-30 15:12 | CONS ---
DATE OF ADMISSION: 04/29/2018 DATE OF CONSULTATION: 04/30/2018 TYPE OF CONSULTATION: Infectious disease. REQUESTING PHYSICIAN: Jaiden Mancini MD Thank you Dr. Mancini for this consultation. HISTORY OF PRESENT ILLNESS: This is a well-nourished, well-developed, middle- aged man with a history of left foot diabetic ulceration and osteomyelitis with wound culture on 04/02/2018 grew E. coli, VRE and Elisabeth albicans. The patient was seen by our service on previous admission and was discharged on antibiotics. He was readmitted with worsening wound on his left foot and being seen by Dr. Boston in podiatry consultation. VITAL SIGNS: The patient came with a temperature of 98, pulse 92, respirations 16, blood pressure 146/68, saturation 100%. LABORATORY DATA: WBC 18.3, H and H of 11 and 33.7, platelets 417, neutrophils 83.4. Sodium 140, CO2 of 7, BUN 85, creatinine 2.23. Hemoglobin A1c of 9. C- reactive protein 15.7. MICROBIOLOGY: No cultures done. DIAGNOSTIC DATA: X-ray of the foot revealed osteomyelitis at the great toe, proximal and distal phalanges. Extremity arterial study revealed no evidence of significant arterial stenosis in the right lower extremity. ANTIMICROBIALS: The patient was started on: 1. Levofloxacin. 2. Fluconazole. 3. Vancomycin. 4. He also got a dose of cefepime. His white blood cell count today went down to 10.5, neutrophils went up to 87.4. BUN 83, creatinine 1.88, carbon dioxide 8. PAST MEDICAL HISTORY: Significant for chronic left diabetic foot ulceration with history of right 2nd toe amputation and diabetic neuropathy, history of chronic kidney disease, status post acute renal failure, history of sepsis related diabetic foot ulceration. ALLERGIES: ROCEPHIN. SOCIAL HISTORY: No smoking, alcohol or illicits. REVIEW OF SYSTEMS: As per history of present illness. PHYSICAL EXAMINATION: GENERAL: This is a well-developed, well-nourished, middle-aged man who is awake, in no distress. HEENT: Head is atraumatic, normocephalic. NECK: Supple. CHEST: Rise symmetrical. Breath sounds diminished to bases. HEART: S1, S2. ABDOMEN: Soft. Bowel tones are present. EXTREMITIES: With left foot dressing intact. DIAGNOSTIC IMPRESSION: This is an obese, well developed, middle-aged man with uncontrolled diabetes, who was admitted with worsening wound on his left foot and osteomyelitis. We will start him on daptomycin to cover vancomycin-resistant Enterococcus. Continue levofloxacin and fluconazole. Follow podiatry recommendations and consider PICC line placement for long-term IV antibiotics. The patient is also supposed to have MRI of the foot that is pending. I discussed with Dr. Terry Lee. Dictated By: KITTY DUMONT SHERIFF DETECTIVE for TERRY LEE MD NI/NTS Conf#: [id number] DID#: [id number] CC: JACQUI DURÁN DO; JAIDEN MANCINI MD; KATHERINE DYER MD;*EndCC* MTDD
[2018-04-30] MEDS ORDERED: VANCOMYCIN HCL 1.75 GM in SOD CHLORIDE 0.9% 500 ML IVPB SCH (16:00)
[2018-04-30] MEDS: DAPTOMYCIN 650 MG in SOD CHLORIDE 0.9% 100 ML IVPB SCH (16:27)
--- NOTE | 2018-04-30 19:45 | CONS ---
Assessment/Plan Assessment/Plan Assessment/Plan (Daily) Left foot diabetic ulcer Left foot osteomyelitis Left foot cellulitis DTI left foot DM2 with peripheral neuropathy ALESSANDRO Plan: Wound Cultures obtained. Copious irrigation of wound sites. Betadine 4x4 gauze, and 1/4in iodoform packing, kerlix and jennifer wrap dressings to ulceration sites, and betadine 4x4 gauze in between toes. Offload heels with pillows. X- rays reviewed with noted signs of osteomyelitis. IV abx and antifungal therapy per ID recommendations. Previous cultures showed VRE, e.coli and yuliana albicans. Non invasive arterial studies reviewed and recommend vascular evaluation. MRI images reviewed and appreciate signs of osteomyelitis, per nurse tech patient was unable to tolerate complete MRI exam and no sagittal views are available. Patient will need further OR debridement and will coordinate a time. Continue with daily dressing changes. Consultation Date/Type/Reason Admit Date/Time Apr 29, 2018 at 18:18 Initial Consult Date Date/Time of Note DATE: 04/30/18 TIME: 19:45 24 HR Interval Summary Free Text/Dictation No acute events overnight. Exam/Review of Systems Exam Vitals Vital Signs Date Temp Pulse Resp B/P (MAP) Pulse Ox O2 O2 Flow FiO2 Time Delivery Rate 04/30/18 97.8 84 20 120/64 98 14:00 (82) 04/29/18 Room Air 18:43 Intake and Output 04/29/18 04/29/18 04/30/18 1515:00 23:00 07:00 IntakeIntake Total 300 ml 480 ml BalanceBalance 300 ml 480 ml Exam DP/PT pulses palpable Absent protective sensations Left plantar hallux ulceration mixed fibrotic and granular wound base 4 x 2 x 1.5cm which probes to bone and communicates with dorsal hallux ulceration site 2 x 1 x 1.5cm. There is surrounding erythema and maceration noted to the forefoot area. Purulent drainage appreciated to the left hallux ulceration sites There are ulcerations between the lesser digits on the medial and lateral as pects of digits 2-4 mixed fibrotic and granular wound base 0.2 x 0.2 x 0.2cm and interdigital maceration appreciated. There is deep tissue injury noted to the left 5th digit with maceration noted. Ulceration noted to the medial aspect of the 5th digit 0.4 x 0.3 x 0.1cm Muscle strength 5/5 in all compartments of the foot. Foot X-ray IMPRESSION: Findings consistent with osteomyelitis at the great toe proximal and distal phalanges, the second proximal phalanx and distal metatarsal, and possibly the third proximal phalanx and distal metatarsal. Non invasive arterial studies IMPRESSION: No evidence of a significant arterial stenosis in the right lower extremity. Change from triphasic to monophasic waveforms in the left popliteal artery cons istent with a significant stenosis between the distal left superficial femoral artery and popliteal artery. Results Result Diagram: 04/30/18 0448 04/30/18 0448 Results 24hrs Laboratory Tests Test 04/29/18 20:09 04/30/18 04:48 04/30/18 07:30 04/30/18 07:53 Bedside Glucose 144 86 White Blood Count 10.5 # Red Blood Count 3.67 L Hemoglobin 10.2 L Hematocrit 31.4 L Mean Corpuscular 85.6 Volume Mean Corpuscular 27.8 L Hemoglobin Mean Corpuscular 32.5 Hemoglobin Concent Red Cell 13.9 Distribution Width Platelet Count 386 Mean Platelet 9.5 Volume Immature 0.400 Granulocytes % Neutrophils % 87.4 H Lymphocytes % 7.5 L Monocytes % 2.2 Eosinophils % 2.3 Basophils % 0.2 Nucleated Red 0.0 Blood Cells % Immature 0.040 H Granulocytes # Neutrophils # 9.2 H Lymphocytes # 0.8 Monocytes # 0.2 L Eosinophils # 0.2 Basophils # 0.0 Nucleated Red 0.0 Blood Cells # Sodium Level 142 Potassium Level 4.0 Chloride Level 124 H Carbon Dioxide 8 *L Level Anion Gap 10 Blood Urea 83 H Nitrogen Creatinine 1.88 H Est Glomerular 37 L Filtrat Rate mL/min Glucose Level 99 # Hemoglobin A1c 9.2 H Calcium Level 9.9 Total Bilirubin 0.0 L Direct Bilirubin 0.00 Indirect Bilirubin 0.0 Aspartate Amino 16 Transf (AST/SGOT) Alanine 19 Aminotransferase ( ALT/SGPT) Alkaline 70 Phosphatase Total Protein 6.9 # Albumin 3.2 L Globulin 3.70 H Albumin/Globulin 0.86 Ratio Urine Color YELLOW Urine Clarity CLEAR Urine pH 6.0 Urine Specific 1.015 [place] Urine Ketones NEGATIVE Urine Nitrite NEGATIVE Urine Bilirubin NEGATIVE Urine Urobilinogen NEGATIVE Urine Leukocyte NEGATIVE Esterase Urine Microscopic 0 RBC Urine Microscopic 1 WBC Urine Bacteria FEW A Urine Hemoglobin NEGATIVE Urine Random 77.28 Creatinine Urine Random 51 Sodium Urine Random 50.9 Potassium Urine Glucose NEGATIVE Urine Total 68.0 H Protein Test 04/30/18 08:53 04/30/18 12:18 04/30/18 14:43 04/30/18 17:16 Blood Gas Specimen Blood arterial Source Arterial Blood 04/30/2018 9:10:06 Date Drawn AM Arterial Blood pH 7.231 *L (Temp corrected) Arterial Blood 18.8 L pCO2 (Temp correct) Arterial Blood pO2 113.9 H (Temp corrected) Arterial Blood 7.7 *L HCO3 Arterial Blood -17.8 L Base Excess Arterial Blood 97.4 Oxygen Saturation Yang Test ACCEPTAB Arterial Blood Gas Left Radial Puncture Site Arterial 0.2 Blood Carboxyhemog lobin Arterial Blood 0.4 Methemoglobin Blood Gas A-a O2 13.3 Differential Oxyhemoglobin 96.8 Percent Blood Gas 37.0 Temperature Blood Gas Modality ROOM AIR FiO2 21.0 Blood Gas Critical CSILVEO RN Value Read Back Blood Gas Notified TM Whom Blood Gas Notified 04/30/2018 9:19:38 Time AM Bedside Glucose 153 205 Erythrocyte 72 H Sedimentation Rate C-Reactive Protein 19.6 H Medications Medication Current Medications IV Flush (NS 3 ml) 3 ml PER PROTOCOL IV ; Start 04/29/18 at 19:00 Acetaminophen/ Hydrocodone Bitart ([place] (5/325)) 2 tab Q6H PRN PO .SEVERE PAIN 7-10 Last administered on 04/29/18 21:03; Admin Dose 2 TAB; Start 04/29/18 at 19:00 Heparin Sodium (Porcine) (Heparin (5000 Units/1ml)) 5,000 unit Q12 SC Last administered on 04/30/18 08:22; Admin Dose 5,000 UNIT; Start 04/29/18 at 21:00 Fluconazole (Diflucan) 200 mg DAILY PO Last administered on 04/30/18 08:20; Admin Dose 200 MG; Start 04/29/18 at 22:00 Levofloxacin/ Dextrose 100 ml @ 100 mls/hr Q24H IVPB Last administered on 04/29/18 22:48; Admin Dose 100 MLS/HR; Start 04/29/18 at 22:00 Ondansetron HCl (Zofran Inj) 4 mg Q4H PRN IV NAUSEA AND/OR VOMITING Last administered on 04/30/18 17:19; Admin Dose 4 MG; Start 04/30/18 at 05:00 Sodium Bicarbonate 150 meq/Dextrose 1,000 ml @ 150 mls/hr Q6H40M IV Last administered on 04/30/18 18:53; Admin Dose 150 MLS/HR; Start 04/30/18 at 10:30 Insulin Glargine (Lantus) 16 units DAILY@2000 SC ; Start 04/30/18 at 20:00 Insulin Aspart (Novolog Insulin Pen) 5 unit WITH MEALS SC Last administered on 04/30/18 17:21; Admin Dose 5 UNIT; Start 04/30/18 at 11:30 Insulin Aspart (Novolog Insulin Pen) NOVOLOG *MILD* ALGORITHM WITH MEALS BEDTIME SC Last administered on 04/30/18 17:21; Admin Dose 2 UNIT; Start 04/30/18 at 12:00 Sodium Hypochlorite (Dakin'S (Dilute 140)) 1 applic DAILY IRR Last administered on 04/30/18 15:02; Admin Dose 1 APPLIC; Start 04/30/18 at 15:00 Daptomycin 650 mg/ Sodium Chloride 100 ml @ 200 mls/hr Q24H IVPB Last administered on 04/30/18 16:27; Admin Dose 200 MLS/HR; Start 04/30/18 at 16:00 NIMISHA HENNING DPM Apr 30, 2018 19:45
[2018-04-30] MEDS: HYDROCODONE/APAP (5/325) TAB PO PRN (19:53)
[2018-04-30] MEDS: INSULIN GLARGINE [LANTus] (100 UNITS/ML) SYG SC SCH (20:10)
[2018-04-30 20:21] VITALS: BP 128/75; PULSE 102; RESP 18
[2018-04-30] MEDS: ALBUTEROL/IPRATROPIUM (NEB) 3 ML AMP HHN PRN (20:23)
[2018-04-30] MEDS: LEVOFLOXACIN 500MG/D5W (PMX) 100 ML IVPB SCH (23:12)
[2018-05-01] VITALS (16 sets, daily range): BP systolic 93–132; BP diastolic 54–75; PULSE 84–99; RESP 12–22
[2018-05-01] MEDS: INSULIN ASPART [NOVOLOG] 3 ML PEN SC SCH ×4 (07:35→21:09)
[2018-05-01] MEDS: HEPARIN 5,000 UNIT/1 ML VIAL SC SCH ×2 (08:52→20:59)
[2018-05-01] MEDS: FLUCONAZOLE 200 MG TAB PO SCH (08:57)
[2018-05-01] MEDS: Insulin NOVOLOG SS MILD Algorithm (NPO/TPN/ENTERAL FEEDS) SC SCH ×2 (08:58→13:05)
[2018-05-01] MEDS: SODIUM HYPOCHLORITE (1/40) 1 APPLIC BTL IRR SCH (09:00)
[2018-05-01] MEDS ORDERED: INSULIN ASPART [NOVOLOG] 3 ML PEN SC SCH (09:00)
[2018-05-01] MEDS: SODIUM BICARBONATE (IV ADD) 150 MEQ in DEXTROSE 5% 1,000 ML IV SCH ×3 (09:33→19:01)
[2018-05-01] MEDS: ALBUTEROL/IPRATROPIUM (NEB) 3 ML AMP HHN PRN (09:37)
--- NOTE | 2018-05-01 09:47 | PN ---
DATE: 05/01/2018 SUBJECTIVE: The patient is stable, no events overnight. OBJECTIVE: VITAL SIGNS: Blood pressure is 129/64, respiration 18, pulse 89, temperature 98.5. HEENT: Head is normocephalic. NECK: Supple. HEART: Regular rate. LUNGS: Show diminished breath sounds at base. ABDOMEN: Soft, nontender to palpation without rebound or guarding. EXTREMITIES: Negative for clubbing, cyanosis. Trace edema. DERMATOLOGIC: No rashes. MUSCULOSKELETAL: No joint effusions. NEUROLOGIC: No change in exam. MEDICATIONS: Reviewed. LABORATORY DATA: Shows sodium 143, potassium 3.3, chloride 117, BUN 50, creatinine 1.32, bicarbonate 15, white count 10.5, hemoglobin 10.2, platelet count is 386. Urinalysis was bland. The patient zimmerman s a FENa rate of 1%, protein creatinine ratio approximately 800 mg per gram of creatinine. The patie nt's urinary pH is 6.0. ASSESSMENT AND PLAN: 1. Nonoliguric acute kidney injury with previous baseline creatinine of 1.0 to 1.5 mg/dL. Etiology of acute kidney injury was multifactorial, likely secondary to hemodynamics, possible NSAID use. The patient's urinalysis was reviewed -- bland, no active sediment. The patient has nonglomerular prote inuria. FENa greater than 1%. The patient's renal function has been improving with IV fluids. At t his point, will continue current IV fluids. We will continue current treatment plans, supportive car e, renally dose all meds. 2. Hyperchloremic metabolic acidosis. Etiology is multifactorial, likely secondary to acute kidney injury, with possible RTA secondary to NSAID use. The patient's evaluation is ongoing. Urinary anio n gap has been ordered and pending. The patient's bicarbonate levels have improved on bicarbonate dr tavares. Will continue. Anticipate possible change to Bicitra therapy. We will monitor closely. 3. Anemia. Monitor hemoglobin and hematocrit levels. 4. Mineral bone disorder, monitor calcium and phosphorus levels. 5. Osteomyelitis. Continue current medical management. Follow up with podiatry, antibiotic therapy . 6. Diabetes. Continue current insulin regimen. Dictated By: JACQUI CAIN/LUCIEN Conf#: [id number] DID#: [id number]
[2018-05-01] MEDS: ONDANSETRON 4 MG INJ IV PRN (11:42)
[2018-05-01] MEDS: HYDROCODONE/APAP (5/325) TAB PO PRN (11:42)
--- NOTE | 2018-05-01 12:33 | PN ---
Date/Time of Note Date/Time of Note DATE: 05/01/18 TIME: 12:07 Assessment/Plan VTE [place] [facility] [place]: 8 SCD applied (from Ns): Yes Pharmacological prophylaxis: heparin Lines/Catheters IV C[facility]ter Type (from [facility] Peripheral IV Urinary Cath still in place: No Assessment/Plan Assessment/Plan 1. Left foot infection with osteomyelitis, s/p bedside debridement, on antibiotics with vancomycin, levaquin and diflucan, arranging for surgical debridement today 2. Nonoliguric acute kidney injury with previous baseline creatinine of around 1.0 to 1.5 mg/dL. Etiology of current acute kidney injury is multifactorial, prob ATN, IVF, follow up with nephrology 3. Hyperchloremic metabolic acidosis. Etiology is possibly multifactorial secondary to acute kidney injury, possible renal tubular acidosis in the setting of NSAID use is a consideration, follow up with nephrology 4. Anemia. chronic, continue to monitor hemoglobin and hematocrit levels. 5. Diabetes. Continue current insulin regimen. 6. DVT prophylaxis: heparin 7. Hypokalemia, KCL 8. Epigastric pain and nausea, protonix and zofran prn Result Diagram: 04/30/18 0448 05/01/18 0506 Results 24hrs Laboratory Tests Test 04/30/18 12:18 04/30/18 14:43 04/30/18 17:16 04/30/18 20:08 Bedside Glucose 153 205 205 Erythrocyte 72 H Sedimentation Rate C-Reactive Protein 19.6 H Test 05/01/18 01:00 05/01/18 02:32 05/01/18 05:06 05/01/18 08:55 Urine Color YELLOW Urine Clarity CLEAR Urine pH 6.0 Urine Specific [place] 1.016 Urine Ketones NEGATIVE Urine Nitrite NEGATIVE Urine Bilirubin NEGATIVE Urine Urobilinogen NEGATIVE Urine Leukocyte Esterase NEGATIVE Urine Hemoglobin NEGATIVE Urine Glucose NEGATIVE Urine Total Protein NEGATIVE Bedside Glucose 244 H 206 Sodium Level 143 Potassium Level 3.3 L Chloride Level 117 H Carbon Dioxide Level 15 L Anion Gap 11 Blood Urea Nitrogen 50 #H Creatinine 1.32 H Est Glomerular Filtrat 56 L Rate mL/min Glucose Level 204 # Calcium Level 9.5 Subjective 24 Hr Interval Summary Free Text/Dictation epigastric pain and nausea Exam/Review of Systems Exam Vitals Vital Signs Date Temp Pulse Resp B/P (MAP) Pulse Ox O2 O2 Flow FiO2 Time Delivery Rate 05/01/18 69 16 97 21 09:39 05/01/18 98.5 129/64 08:10 (85) 04/29/18 Room Air 18:43 Intake and Output 04/30/18 04/30/18 05/01/18 1515:00 23:00 07:00 IntakeIntake Total 950 ml 1570 ml OutputOutput Total 750 ml 550 ml 825 ml BalanceBalance 200 ml 1020 ml -825 ml Constitutional: alert, oriented, well developed Psych: no complaints, nl mood/affect Head: normocephalic, atraumatic Eyes: nl conjunctiva, EOMI, nl lids ENMT: nl external ears & nose, nl lips & teeth, nl nasal mucosa & septum Neck: supple, non-tender Respiratory: clear to auscultation, normal air movement; No congested cough, No crackles/rales, No diminished breath sounds, No intercostal retraction, No labored breathing, No respirations, No tactile fremitus, No wheezing, No other Cardiovascular: regular rate and rhythm, nl pulses; No bruits, No diastolic murmur, No edema, No gallop, No irregular rhythm, No jugular venous distention (JVD), No murmurs/extra sounds, No rub, No systolic murmur, No S3, No S4, No other Gastrointestinal: soft, nl liver, spleen, non-tender; No ascites, No bowel sounds, No distended, No firm, No hepatomegaly, No mass, No rebound or guarding, No splenomegaly, No surgical scars, No tender, No other Extremities: other (left foot wound) 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: MORTGAGE LOAN COORDINATOR II-XII intact, nl mental status, nl speech, nl strength Results Results 24hrs Laboratory Tests Test 04/30/18 12:18 04/30/18 14:43 04/30/18 17:16 04/30/18 20:08 Bedside Glucose 153 205 205 Erythrocyte 72 H Sedimentation Rate C-Reactive Protein 19.6 H Test 05/01/18 01:00 05/01/18 02:32 05/01/18 05:06 05/01/18 08:55 Urine Color YELLOW Urine Clarity CLEAR Urine pH 6.0 Urine Specific [place] 1.016 Urine Ketones NEGATIVE Urine Nitrite NEGATIVE Urine Bilirubin NEGATIVE Urine Urobilinogen NEGATIVE Urine Leukocyte Esterase NEGATIVE Urine Hemoglobin NEGATIVE Urine Glucose NEGATIVE Urine Total Protein NEGATIVE Bedside Glucose 244 H 206 Sodium Level 143 Potassium Level 3.3 L Chloride Level 117 H Carbon Dioxide Level 15 L Anion Gap 11 Blood Urea Nitrogen 50 #H Creatinine 1.32 H Est Glomerular Filtrat 56 L Rate mL/min Glucose Level 204 # Calcium Level 9.5 Medications Medication Current Medications IV Flush (NS 3 ml) 3 ml PER PROTOCOL IV ; Start 04/29/18 at 19:00 Acetaminophen/ Hydrocodone Bitart ([place] (5/325)) 2 tab Q6H PRN PO .SEVERE PAIN 7-10 Last administered on 05/01/18 11:42; Admin Dose 2 TAB; Start 04/29/18 at 19:00 Heparin Sodium (Porcine) (Heparin (5000 Units/1ml)) 5,000 unit Q12 SC Last administered on 04/30/18 20:12; Admin Dose 5,000 UNIT; Start 04/29/18 at 21:00 Fluconazole (Diflucan) 200 mg DAILY PO Last administered on 05/01/18 08:57; Admin Dose 200 MG; Start 04/29/18 at 22:00 Levofloxacin/ Dextrose 100 ml @ 100 mls/hr Q24H IVPB Last administered on 23:12; Admin Dose 100 MLS/HR; Start 04/29/18 at 22:00 Ondansetron HCl (Zofran Inj) 4 mg Q4H PRN IV NAUSEA AND/OR VOMITING Last administered on 05/01/18 11:42; Admin Dose 4 MG; Start 04/30/18 at 05:00 Sodium Bicarbonate 150 meq/Dextrose 1,000 ml @ 150 mls/hr Q6H40M IV Last administered on 05/01/18 09:33; Admin Dose 150 MLS/HR; Start 04/30/18 at 10:30 Insulin Glargine (Lantus) 16 units DAILY@2000 SC Last administered on 04/30/18 20:10; Admin Dose 16 UNITS; Start 04/30/18 at 20:00 Insulin Aspart (Novolog Insulin Pen) 5 unit WITH MEALS SC Last administered on 04/30/18 17:21; Admin Dose 5 UNIT; Start 04/30/18 at 11:30 Sodium Hypochlorite (Dakin'S (Dilute )) 1 applic DAILY IRR Last ad ministered on 05/01/18 09:00; Admin Dose 1 APPLIC; Start 04/30/18 at 15:00 Daptomycin 650 mg/ Sodium Chloride 100 ml @ 200 mls/hr Q24H IVPB Last administered on 04/30/18 16:27; Admin Dose 200 MLS/HR; Start 04/30/18 at 16:00 Albuterol/ Ipratropium (Duoneb) 3 ml Q4H RESP THERAPY PRN HHN SHORTNESS OF BREATH Last administered on 05/01/18 09:37; Admin Dose 3 ML; Start 04/30/18 at 20:00 Insulin Aspart (Novolog Insulin Pen) (Adult SC Insulin - Mild Algorithm)... Q4 SC Last administered on 05/01/18 08:58; Admin Dose 2 UNIT; Start 05/01/18 at 09:00 KATHERINE DYER MD May 01, 2018 12:17
[2018-05-01] MEDS: PANTOPRAZOLE 40 MG INJ IV SCH (13:03)
[2018-05-01] MEDS ORDERED: POTASSIUM CHLORIDE 100 ML IVPB ONE (14:00)
--- NOTE | 2018-05-01 14:00 | CONS ---
Assessment/Plan Assessment/Plan Assessment/Plan (Daily) Left foot diabetic ulcer Left foot osteomyelitis Left foot cellulitis DTI left foot DM2 with peripheral neuropathy ALESSANDRO Plan: Addressed all of patient's questions and concerns regarding OR debridement this afternoon. Patient to be kept NPO and consent prepared. Wound Cultures obtained. Copious irrigation of wound sites. Betadine 4x4 gauze, and 1/4in iodoform packing, kerlix and jennifer wrap dressings to ulceration sites, and betadine 4x4 gauze in between toes. Offload heels with pillows. X-rays reviewed with noted signs of osteomyelitis. IV abx and antifungal therapy per ID recommendations. Previous cultures showed VRE, e.coli and yuliana albicans. Non invasive arterial studies reviewed and recommend vascular evaluation. MRI images reviewed and appreciate signs of osteomyelitis, per geotechnical intern patient was unable to tolerate complete MRI exam and no sagittal views are available. Patient will need further OR debridement and will coordinate a time. Continue with daily dressing changes. Consultation Date/Type/Reason Admit Date/Time Apr 29, 2018 at 18:18 Initial Consult Date Date/Time of Note DATE: 05/01/18 TIME: 14:00 24 HR Interval Summary Free Text/Dictation No acute events overnight. Exam/Review of Systems Exam Vitals Vital Signs Date Temp Pulse Resp B/P (MAP) Pulse Ox O2 O2 Flow FiO2 Time Delivery Rate 05/01/18 69 16 97 21 09:39 05/01/18 98.5 129/64 08:10 (85) 04/29/18 Room Air 18:43 Intake and Output 04/30/18 04/30/18 05/01/18 1414:59 22:59 06:59 IntakeIntake Total 950 ml 1570 ml OutputOutput Total 750 ml 550 ml 825 ml BalanceBalance 200 ml 1020 ml -825 ml Exam Dressings clean dry and intact no strikethrough appreciated, no proximal streaking Foot X-ray IMPRESSION: Findings consistent with osteomyelitis at the great toe proximal and distal phalanges, the second proximal phalanx and distal metatarsal, and possibly the third proximal phalanx and distal metatarsal. Non invasive arterial studies IMPRESSION: No evidence of a significant arterial stenosis in the right lower extremity. Change from triphasic to monophasic waveforms in the left popliteal artery consistent with a significant stenosis between the distal left superficial femor al artery and popliteal artery. Results Result Diagram: 04/30/18 0448 05/01/18 0506 Results 24hrs Laboratory Tests Test 04/30/18 14:43 04/30/18 17:16 04/30/18 20:08 05/01/18 01:00 Erythrocyte 72 H Sedimentation Rate C-Reactive Protein 19.6 H Bedside Glucose 205 205 Urine Color YELLOW Urine Clarity CLEAR Urine pH 6.0 Urine Specific [place] 1.016 Urine Ketones NEGATIVE Urine Nitrite NEGATIVE Urine Bilirubin NEGATIVE Urine Urobilinogen NEGATIVE Urine Leukocyte Esterase NEGATIVE Urine Hemoglobin NEGATIVE Urine Glucose NEGATIVE Urine Total Protein NEGATIVE Test 05/01/18 02:32 05/01/18 05:06 05/01/18 08:55 05/01/18 13:02 Bedside Glucose 244 H 206 258 H Sodium Level 143 Potassium Level 3.3 L Chloride Level 117 H Carbon Dioxide Level 15 L Anion Gap 11 Blood Urea Nitrogen 50 #H Creatinine 1.32 H Est Glomerular Filtrat 56 L Rate mL/min Glucose Level 204 # Calcium Level 9.5 Medications Medication Current Medications IV Flush (NS 3 ml) 3 ml PER PROTOCOL IV ; Start 04/29/18 at 19:00 Acetaminophen/ Hydrocodone Bitart ([place] (5/325)) 2 tab Q6H PRN PO .SEVERE PAIN 7-10 Last administered on 05/01/18 11:42; Admin Dose 2 TAB; Start 04/29/18 at 19:00 Heparin Sodium (Porcine) (Heparin (5000 Units/1ml)) 5,000 unit Q12 SC Last administered on 04/30/18 20:12; Admin Dose 5,000 UNIT; Start 04/29/18 at 21:00 Fluconazole (Diflucan) 200 mg DAILY PO Last administered on 05/01/18 08:57; Admin Dose 200 MG; Start 04/29/18 at 22:00 Levofloxacin/ Dextrose 100 ml @ 100 mls/hr Q24H IVPB Last administered on 04/30/18 23:12; Admin Dose 100 MLS/HR; Start 04/29/18 at 22:00 Ondansetron HCl (Zofran Inj) 4 mg Q4H PRN IV NAUSEA AND/OR VOMITING Last administered on 05/01/18 11:42; Admin Dose 4 MG; Start 04/30/18 at 05:00 Sodium Bicarbonate 150 meq/Dextrose 1,000 ml @ 150 mls/hr Q6H40M IV Last administered on 05/01/18 09:33; Admin Dose 150 MLS/HR; Start 04/30/18 at 10:30 Insulin Glargine (Lantus) 16 units DAILY@2000 SC Last administered on 04/30/18 20:10; Admin Dose 16 UNITS; Start 04/30/18 at 20:00 Insulin Aspart (Novolog Insulin Pen) 5 unit WITH MEALS SC Last administered on 04/30/18 17:21; Admin Dose 5 UNIT; Start 04/30/18 at 11:30 Sodium Hypochlorite (Dakin'S (Dilute )) 1 applic DAILY IRR Last administered on 05/01/18 09:00; Admin Dose 1 APPLIC; Start 04/30/18 at 15:00 Daptomycin 650 mg/ Sodium Chloride 100 ml @ 200 mls/hr Q24H IVPB Last administered on 04/30/18 16:27; Admin Dose 200 MLS/HR; Start 04/30/18 at 16:00 Albuterol/ Ipratropium (Duoneb) 3 ml Q4H RESP THERAPY PRN HHN SHORTNESS OF BREATH Last administered on 05/01/18 09:37; Admin Dose 3 ML; Start 04/30/18 at 20:00 Insulin Aspart (Novolog Insulin Pen) (Adult SC Insulin - Mild Algorithm)... Q4 SC Last administered on 05/01/18 13:05; Admin Dose 3 UNIT; Start 05/01/18 at 09:00 Potassium Chloride 100 ml @ 50 mls/hr ONCE ONCE IVPB ; Start 05/01/18 at 14:00; Stop 05/01/18 at 15:59 Pantoprazole (Protonix Iv) 40 mg DAILY@06 IV Last administered on 05/01/18 13:03; Admin Dose 40 MG; Start 05/01/18 at 13:00 NIMISHA HENNING DPM May 01, 2018 14:00
--- NOTE | 2018-05-01 14:51 | CONS ---
Assessment/Plan Assessment/Plan Hospital Course (Demo Recall) No acute changes overnight patient is alert looks comfortable afebrile. ESR today 80 no CBC, BUN 50 creatinine 1.32 Microbiology: Blood cultures remain negative. Wound culture growing gram-ne gative rods preliminary, previously grew VRE Elisabeth albicans and E. coli Antimicrobials: Daptomycin, Levaquin, fluconazole PHYSICAL EXAMINATION: GENERAL: This is a well-developed, well-nourished, middle-aged man who is awake, in no distress. HEENT: Head is atraumatic, normocephalic. NECK: Supple. CHEST: Rise symmetrical. Breath sounds diminished to bases. HEART: S1, S2. ABDOMEN: Soft. Bowel tones are present. EXTREMITIES: With left foot dressing intact. Assessment: 1. 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 Diabetes 3. Obesity 4. Acute possibly on chronic kidney disease Plan: Patient remains stable, continue on current antibiotics, continue local wound care per podiatry recommendations Consultation Date/Type/Reason Admit Date/Time Apr 29, 2018 at 18:18 Initial Consult Date Type of Consult id Date/Time of Note DATE: 05/01/18 TIME: 14:51 Exam/Review of Systems Exam Vitals Vital Signs Date Temp Pulse Resp B/P (MAP) Pulse Ox O2 O2 Flow FiO2 Time Delivery Rate 05/01/18 69 16 97 21 09:39 05/01/18 98.5 129/64 08:10 (85) 04/29/18 Room Air 18:43 Intake and Output 04/30/18 04/30/18 05/01/18 1414:59 22:59 06:59 IntakeIntake Total 950 ml 1570 ml OutputOutput Total 750 ml 550 ml 825 ml BalanceBalance 200 ml 1020 ml -825 ml Results Result Diagram: 04/30/18 0448 05/01/18 0506 Results 24hrs Laboratory Tests Test 04/30/18 17:16 04/30/18 20:08 05/01/18 01:00 05/01/18 02:32 Bedside Glucose 205 205 244 H Urine Color YELLOW Urine Clarity CLEAR Urine pH 6.0 Urine Specific [place] 1.016 Urine Ketones NEGATIVE Urine Nitrite NEGATIVE Urine Bilirubin NEGATIVE Urine Urobilinogen NEGATIVE Urine Leukocyte Esterase NEGATIVE Urine Hemoglobin NEGATIVE Urine Glucose NEGATIVE Urine Total Protein NEGATIVE Test 05/01/18 05:06 05/01/18 08:55 05/01/18 13:02 Erythrocyte 80.0 H Sedimentation Rate Sodium Level 143 Potassium Level 3.3 L Chloride Level 117 H Carbon Dioxide Level 15 L Anion Gap 11 Blood Urea Nitrogen 50 #H Creatinine 1.32 H Est Glomerular Filtrat 56 L Rate mL/min Glucose Level 204 # Calcium Level 9.5 Bedside Glucose 206 258 H Medications Medication Current Medications IV Flush (NS 3 ml) 3 ml PER PROTOCOL IV ; Start 04/29/18 at 19:00 Acetaminophen/ Hydrocodone Bitart ([place] (5/325)) 2 tab Q6H PRN PO .SEVERE PAIN 7-10 Last administered on 05/01/18 11:42; Admin Dose 2 TAB; Start 04/29/18 at 19:00 Heparin Sodium (Porcine) (Heparin (5000 Units/1ml)) 5,000 unit Q12 SC Last administered on 04/30/18 20:12; Admin Dose 5,000 UNIT; Start 04/29/18 at 21:00 Fluconazole (Diflucan) 200 mg DAILY PO Last administered on 05/01/18 08:57; Admin Dose 200 MG; Start 04/29/18 at 22:00 Levofloxacin/ Dextrose 100 ml @ 100 mls/hr Q24H IVPB Last administered on 04/30/18 23:12; Admin Dose 100 MLS/HR; Start 04/29/18 at 22:00 Ondansetron HCl (Zofran Inj) 4 mg Q4H PRN IV NAUSEA AND/OR VOMITING Last administered on 05/01/18 11:42; Admin Dose 4 MG; Start 04/30/18 at 05:00 Sodium Bicarbonate 150 meq/Dextrose 1,000 ml @ 150 mls/hr Q6H40M IV Last administered on 05/01/18 09:33; Admin Dose 150 MLS/HR; Start 04/30/18 at 10:30 Insulin Glargine (Lantus) 16 units DAILY@2000 SC Last administered on 04/30/18 20:10; Admin Dose 16 UNITS; Start 04/30/18 at 20:00 Insulin Aspart (Novolog Insulin Pen) 5 unit WITH MEALS SC Last administered on 04/30/18 17:21; Admin Dose 5 UNIT; Start 04/30/18 at 11:30 Sodium Hypochlorite (Dakin'S (Dilute 1/40)) 1 applic DAILY IRR Last administered on 05/01/18 09:00; Admin Dose 1 APPLIC; Start 04/30/18 at 15:00 Daptomycin 650 mg/ Sodium Chloride 100 ml @ 200 mls/hr Q24H IVPB Last administered on 04/30/18 16:27; Admin Dose 200 MLS/HR; Start 04/30/18 at 16:00 Albuterol/ Ipratropium (Duoneb) 3 ml Q4H RESP THERAPY PRN HHN SHORTNESS OF BREATH Last administered on 05/01/18 09:37; Admin Dose 3 ML; Start 04/30/18 at 20:00 Insulin Aspart (Novolog Insulin Pen) (Adult SC Insulin - Mild Algorithm)... Q4 SC Last administered on 05/01/18 13:05; Admin Dose 3 UNIT; Start 05/01/18 at 09:00 Potassium Chloride 100 ml @ 50 mls/hr ONCE ONCE IVPB Last administered on 05/01/18 14:09; Admin Dose 50 MLS/HR; Start 05/01/18 at 14:00; Stop 05/01/18 at 15:59 Pantoprazole (Protonix Iv) 40 mg DAILY@06 IV Last administered on 05/01/18 13:03; Admin Dose 40 MG; Start 05/01/18 at 13:00 KITYT DUMONT NP May 01, 2018 14:51
[2018-05-01] MEDS ORDERED: SODIUM CL BACTERIOSTATIC 30 ML INJ ONE (15:37)
[2018-05-01] MEDS ORDERED: LIDOCAINE 1% (MPF) 30 ML INJ ONE (15:37)
[2018-05-01] MEDS ORDERED: POLYMYXIN B 500000 UNIT INJ ONE (15:37)
[2018-05-01] MEDS ORDERED: GENTAMICIN 80 MG INJ ONE (15:38)
[2018-05-01] MEDS ORDERED: BACITRACIN 50000 UNITS INJ ONE (15:40)
--- NOTE | 2018-05-01 15:50 | HPN ---
Date/Time of Note Date/Time of Note DATE: 05/01/18 TIME: 15:50 Interval H&P Admission Note Pt. seen H&P reviewed: No system changes NIMISHA HENNING DPM May 01, 2018 15:50
[2018-05-01] MEDS: DAPTOMYCIN 650 MG in SOD CHLORIDE 0.9% 100 ML IVPB SCH (16:00)
--- NOTE | 2018-05-01 16:07 | PREAC ---
Date/Time of Note Date/Time of Note DATE: 05/01/18 TIME: 16:06 Anesthesia Eval and Record Evaluation Time Pre-Procedure Interview DATE: 05/01/18 TIME: 16:06 Age 57 Sex male NPO: 8 hrs Preoperative diagnosis left foot debridement Planned procedure Left diabetic foot ulcer and osteomyelitis Past Medical History Past Medical History: Includes Cardio: Other (peripheral arterial disease) Endo: Diabetes Renal: ALESSANDRO, CKD GI: Obesity Heme: Anemia Surgery & Anesthesia Issues No known issue Meds Anticoagulation: No Beta Celeste within 24 hr: No Reason Beta Celeste not given: Pt. not on B-Celeste Reported Medications Lisinopril* (Lisinopril*) 20 Mg Tablet, 20 MG PO DAILY, #30 TAB 04/29/18 Glipizide* (Glipizide*) 10 Mg Tablet, 10 MG PO AC BREAKFAST DINNER, TAB 04/29/18 Ibuprofen* (Ibuprofen*) 800 Mg Tablet, 800 MG PO Q6H PRN for PAIN, TAB 04/29/18 Insulin Glargine,Hum.rec.anlog (Kayla Feliciano U-100) 100 Unit/1 Ml Insuln.pen, UNIT SC SLIDING SCALE, EA 04/29/18 Simvastatin* (Zocor*) 20 Mg Tablet, 20 MG PO QHS, #30 TAB 04/29/18 Fluconazole* (Fluconazole*) 200 Mg Tablet, 400 MG PO DAILY, TAB 04/29/18 Levofloxacin* (Levofloxacin*) 750 Mg Tablet, 750 MG PO DAILY, TAB 04/29/18 Discontinued Scripts Multivitamins* (Theragran*) 1 Tab Tab, 1 TAB PO DAILY for 30 Days, #30 TAB Prov:JANELL YOO 02/26/18 Ascorbic Acid (Vitamin C) 500 Mg Tab, 500 MG PO DAILY for 30 Days, #30 TAB Prov:JANELL YOO 02/26/18 Zinc Sulfate* (Zinc Sulfate*) 220 Mg Cap, 220 MG PO DAILY for 30 Days, #30 CAP Prov:JANELL YOO 02/26/18 Levofloxacin* (Levaquin*) 750 Mg Tablet, 750 MG PO DAILY for 14 Days, #14 TAB Prov:JANELL YOO 02/26/18 Current Medications IV Flush (NS 3 ml) 3 ml PER PROTOCOL IV ; Start 04/29/18 at 19:00 Acetaminophen/ Hydrocodone Bitart ([place] (5/325)) 2 tab Q6H PRN PO .SEVERE PAIN 7-10 Last administered on 05/01/18 11:42; Admin Dose 2 TAB; Start 04/29/18 at 19:00 Heparin Sodium (Porcine) (Heparin (5000 Units/1ml)) 5,000 unit Q12 SC Last administered on 04/30/18 20:12; Admin Dose 5,000 UNIT; Start 04/29/18 at 21:00 Fluconazole (Diflucan) 200 mg DAILY PO Last administered on 05/01/18 08:57; Admin Dose 200 MG; Start 04/29/18 at 22:00 Levofloxacin/ Dextrose 100 ml @ 100 mls/hr Q24H IVPB Last administered on 04/30/18 23:12; Admin Dose 100 MLS/HR; Start 04/29/18 at 22:00 Ondansetron HCl (Zofran Inj) 4 mg Q4H PRN IV NAUSEA AND/OR VOMITING Last administered on 05/01/18 11:42; Admin Dose 4 MG; Start 04/30/18 at 05:00 Sodium Bicarbonate 150 meq/Dextrose 1,000 ml @ 150 mls/hr Q6H40M IV Last administered on 05/01/18 09:33; Admin Dose 150 MLS/HR; Start 04/30/18 at 10:30 Insulin Glargine (Lantus) 16 units DAILY@2000 SC Last administered on 04/30/18 20:10; Admin Dose 16 UNITS; Start 04/30/18 at 20:00 Insulin Aspart (Novolog Insulin Pen) 5 unit WITH MEALS SC Last administered on 04/30/18 17:21; Admin Dose 5 UNIT; Start 04/30/18 at 11:30 Sodium Hypochlorite (Dakin'S (Dilute 40)) 1 applic DAILY IRR Last adminis tered on 05/01/18 09:00; Admin Dose 1 APPLIC; Start 04/30/18 at 15:00 Daptomycin 650 mg/ Sodium Chloride 100 ml @ 200 mls/hr Q24H IVPB Last administered on 04/30/18 16:27; Admin Dose 200 MLS/HR; Start 04/30/18 at 16:00 Albuterol/ Ipratropium (Duoneb) 3 ml Q4H RESP THERAPY PRN HHN SHORTNESS OF BREATH Last administered on 05/01/18at 09:37; Admin Dose 3 ML; Start 04/30/18 at 20:00 Insulin Aspart (Novolog Insulin Pen) (Adult SC Insulin - Mild Algorithm)... Q4 SC Last administered on 05/01/18at 13:05; Admin Dose 3 UNIT; Start 05/01/18 at 09:00 Pantoprazole (Protonix Iv) 40 mg DAILY@06 IV Last administered on 05/01/18at 13:03; Admin Dose 40 MG; Start 05/01/18 at 13:00 Meds reviewed: Yes Allergies Coded Allergies: No Known Allergy (Unverified , 04/29/18) Allergies Reviewed: Yes Labs/Studies Labs Reviewed: Reviewed by anesthesiologist Result Diagram: 04/30/18 0448 05/01/18 0506 Laboratory Tests 05/01/18 05:06 test: N/A Pre-procedure Exam Last vitals Vital Signs Date Temp Pulse Resp B/P (MAP) Pulse Ox O2 O2 Flow FiO2 Time Delivery Rate 05/01/18 69 16 97 21 09:39 05/01/18 98.5 129/64 08:10 (85) 04/29/18 Room Air 18:43 Airway: Adequate mouth opening, Adequate thyromental dist Mallampati: Mallampati II Teeth: Normal Lung: Normal Heart: Normal ASA Physical Status ASA physical status: 3 Emergency: None Planned Anesthetic General/MAC: Mask (vs. ), LMA Planned Pain Management Parenteral pain med Pre-operative Attestations Prior to commencing anesthesia and surgery, the patient was re-evaluated, there was verification of: *The patient's identity *The results of appropriate recent lab work and preoperative vital signs *The above evaluation not changing prior to induction *Anesthetic plan, risk benefits, alternative and complications discussed with patient/family; questions answered; patient/family understands, accepts and wishes to proceed. JENNIFER BROUSSARD MD May 01, 2018 16:07
[2018-05-01] MEDS ORDERED: PROPOFOL 20 ML ONE (16:19)
[2018-05-01] MEDS ORDERED: LIDOCAINE 2% (SDV) 5 ML INJ ONE (16:19)
[2018-05-01] MEDS ORDERED: MIDAZOLAM 1 MG/ML 2 ML INJ ONE (16:21)
[2018-05-01] MEDS ORDERED: FENTAnyl 50 MCG/ML VIAL ONE (16:21)
[2018-05-01] MEDS ORDERED: METOCLOPRAMIDE 10 MG INJ ONE (16:22)
[2018-05-01] MEDS ORDERED: DIPHENHYDRAMINE 50 MG INJ IV PRN (16:30)
[2018-05-01] MEDS ORDERED: LABETALOL HCL 20MG INJ IV PRN (16:30)
[2018-05-01] MEDS ORDERED: ONDANSETRON 4 MG INJ IV PRN (16:30)
[2018-05-01] MEDS ORDERED: HYDROmorphONE 1 MG/5 ML IV SYRINGE IV PRN (16:30)
[2018-05-01] MEDS ORDERED: MEPERIDINE 25 MG INJ IV PRN (16:30)
[2018-05-01] MEDS ORDERED: hydrALAzine 20 MG INJ IV PRN (16:30)
[2018-05-01] MEDS ORDERED: PROCHLORPERAZINE 10 MG INJ IV PRN (16:30)
[2018-05-01] MEDS ORDERED: FENTAnyl 50 MCG/ML VIAL IV PRN (16:30)
[2018-05-01] MEDS ORDERED: EPHEDrine SULFATE 50 MG/5 ML SYG IV PRN (16:30)
[2018-05-01] MEDS ORDERED: PHENYLephrine (100 MCG/ML) 5ML SYG ONE ×2 (16:50→17:20)
[2018-05-01] MEDS ORDERED: ONDANSETRON 4 MG INJ ONE (16:58)
[2018-05-01] MEDS ORDERED: FAMOTIDINE 20 MG INJ ONE (16:59)
--- NOTE | 2018-05-01 18:05 | SIPON ---
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
--- NOTE | 2018-05-01 18:09 | OPR ---
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 Patient had failed conservative therapy and local wound care and is now opting for surgical intervention. Discussed with the patient that he is at risk of digit amputations due to the severity of the ulcerations. Addressed all of patient's questions and concerns no promises or guarantees were given. Procedure Description Patient was brought into the OR and placed on the OR table in the supine position. The left lower extremity was scrubbed, prepped, and draped in the usual aseptic manner. A formal time out was conducted. Attention was directed to the ulceration sites of the left foot: Left plantar hallux ulceration mixed fibrotic and granular wound base 4 x 2 x 1.5cm which probes to bone and communicates with dorsal hallux ulceration site 2 x 1 x 1.5cm. There is surrounding erythema and maceration noted to the forefoot area. Purulent drainage appreciated to the left hallux ulceration sites approximately 2-3mL There are ulcerations between the lesser digits on the medial and lateral aspects of digits 2-4 mixed fibrotic and granular wound base 0.2 x 0.2 x 0.2cm and interdigital maceration appreciated. There is deep tissue injury noted to the left 5th digit with maceration noted and necrotic changes. Ulceration noted to the medial aspect of the 5th digit 0.4 x 0.3 x 0.1cm which is fibrotic and probes to bone. Excisional debridement of skin/subQ/muscle fascia was performed at each ulceration site with curette and scalpel. Necrotic, fibrotic, and biofilm tissue was removed. A firm tissue was noted to the left hallux site and was sent for pathology specimen. There was also copious antibiotic saline infuse pulse lavage irrigation. Post lavage cultures were obtained. Less then 20cm2 of are was debrided. Polymixin and bacitracin antibiotic powder was placed into the wound sites with a gentamicin antibiotic cement spacer. Iodoform packing was placed into the wound sites and 4x4 betadine gauze, kerlix and jennifer wrap was applied to the left foot. Patient was transferred to the PACU with vital signs stable and neurovascular status intact. MICK HENNING DPM May 01, 2018 18:09
--- NOTE | 2018-05-01 18:09 | PAC ---
Date/Time of Note Date/Time of Note DATE: 05/01/18 TIME: 18:08 Post-Anesthesia Notes Post-Anesthesia Note Last documented vital signs Vital Signs Date Temp Pulse Resp B/P (MAP) Pulse Ox O2 O2 Flow FiO2 Time Delivery Rate 05/01/18 98 90 18 103/66 100 17:54 (78) 05/01/18 98.0 17:43 05/01/18 21 09:39 Activity: WNL Respiratory function: WNL Cardiovascular function: WNL Mental status: Baseline Pain reasonably controlled: Yes Hydration appropriate: Yes Nausea/Vomiting absent: Yes JENNIFER BROUSSARD MD May 01, 2018 18:09
[2018-05-01] MEDS: INSULIN GLARGINE [LANTus] (100 UNITS/ML) SYG SC SCH (20:12)
[2018-05-01] MEDS: LEVOFLOXACIN 500MG/D5W (PMX) 100 ML IVPB SCH (21:38)
[2018-05-02] MEDS: SODIUM BICARBONATE (IV ADD) 150 MEQ in DEXTROSE 5% 1,000 ML IV SCH (00:33)
[2018-05-02 02:22] VITALS: BP 121/52; PULSE 102; RESP 18
[2018-05-02] MEDS: PANTOPRAZOLE 40 MG INJ IV SCH (06:15)
[2018-05-02 08:29] VITALS: BP 123/71; PULSE 101; RESP 18
[2018-05-02] MEDS ORDERED: POTASSIUM CHLORIDE (SR) 20 MEQ TAB PO STA ×2 (08:44→15:16)
[2018-05-02] MEDS: SODIUM HYPOCHLORITE (1/40) 1 APPLIC BTL IRR SCH (08:45)
[2018-05-02] MEDS: ONDANSETRON 4 MG INJ IV PRN (08:49)
[2018-05-02] MEDS: FLUCONAZOLE 200 MG TAB PO SCH (08:49)
[2018-05-02] MEDS: HEPARIN 5,000 UNIT/1 ML VIAL SC SCH ×2 (08:52→20:35)
[2018-05-02] MEDS: INSULIN ASPART [NOVOLOG] 3 ML PEN SC SCH ×7 (08:54→20:34)
[2018-05-02] MEDS ORDERED: MAGNESIUM SULFATE 2 GM/50 ML 50 ML IVPB ONE (09:00)
--- NOTE | 2018-05-02 11:35 | PN ---
DATE: 05/02/2018 SUBJECTIVE: The patient is stable. No events overnight. No fevers, chills, nausea, vomiting. OBJECTIVE: VITAL SIGNS: Blood pressure is 123/71, respiration 18, pulse 101, temperature 98.3. HEENT: Head is normocephalic. NECK: Supple. HEART: Regular rate. LUNGS: Show diminished breath sounds at the base. ABDOMEN: Soft, nontender to palpation without rebound or guarding. EXTREMITIES: Negative for clubbing, cyanosis, no edema. DERMATOLOGIC: No rashes. MUSCULOSKELETAL: Negative. MUSCULOSKELETAL: Positive wounds. NEUROLOGIC: No change in exam. MEDICATIONS: Reviewed. LABORATORY DATA: Shows sodium 141, potassium 3.1, BUN 29, creatinine 1.15, glucose 292, magnesium 1. 5. White count 14.2, hemoglobin 8.9, platelet count is 332. ASSESSMENT AND PLAN: 1. Nonoliguric acute kidney injury with previous baseline creatinine of 1.0 to 1.5 mg/dL. Etiology of acute kidney injury is multifactorial, likely secondary to hemodynamics. The patient's renal func tion has improved with IV fluids. At this point, will discontinue IV hydration, monitor renal functi on closely. 2. Hyperchloremic metabolic acidosis. Etiology may be multifactorial secondary to acute kidney inju ry, possible RTA. The patient is currently on bicarbonate drip. Will discontinue. Monitor bicarbon ate levels. 3. Anemia. Monitor H and H levels. 4. Mineral bone disorder. Monitor calcium and phosphorus levels. 5. Osteomyelitis. Continue current medical management. Follow up with podiatry. 6. Diabetes. Continue current insulin regimen. 7. Hypokalemia, hypomagnesemia. Continue to monitor and replete. Dictated By: JACQUI DURÁN DO NR/NTS Conf#: [id number] DID#: [id number] CC: TRU LANIER MD;*End*
[2018-05-02 14:52] VITALS: BP 110/55; PULSE 98; RESP 20
--- NOTE | 2018-05-02 15:18 | PN ---
Date/Time of Note Date/Time of Note DATE: 05/02/18 TIME: 15:14 Assessment/Plan VTE Prophylaxis Risk score (from [facility] [place]0 risk: 8 SCD applied (from [facility] [place] Yes Pharmacological prophylaxis: heparin Lines/Catheters IV Catheter Type (from [facility]): Peripheral IV Urinary Cath still in place: No Assessment/Plan Problems: (1) Osteomyelitis Status: Acute Comment: Is status post debridement and on antibiotics. Going to be a difficult situation as he is already gone through 2-month course of antibiotics and promptly needed to be admitted. I suspect he will need a much more formalized surgical debridement. Qualifiers: Osteomyelitis type: unspecified type Osteomyelitis location: foot Late rality: left Qualified Codes: M86.9 - Osteomyelitis, unspecified (2) Diabetes mellitus type 2 in obese Status: Chronic Comment: His diabetic control is inadequate. I will try and tighten this up to help with the patient's overall status (3) Acute hypokalemia Status: Acute Comment: Replace (4) Hypomagnesemia Status: Acute Comment: Replace (5) Acute kidney injury (nontraumatic) Status: Resolved Comment: Back to baseline (6) Essential hypertension Status: Chronic Comment: Adequate control (7) Hyperlipidemia associated with type 2 diabetes mellitus Status: Chronic Comment: On statin therapy Result Diagram: 05/02/18 0527 05/02/18526 Results 24hrs Laboratory Tests Test 05/01/18 16:07 05/01/18 17:46 05/01/18 20:09 05/01/18 21:05 Bedside Glucose 225 H 209 181 196 Test 05/02/18 05:27 05/02/18 08:44 05/02/18 11:47 White Blood Count 14.2 #H Red Blood Count 3.14 L Hemoglobin 8.9 L Hematocrit 26.6 L Mean Corpuscular Volume 84.7 Mean Corpuscular 28.3 L Hemoglobin Mean Corpuscular 33.5 Hemoglobin Concent Red Cell Distribution 14.0 Width Platelet Count 332 Mean Platelet Volume 9.5 Immature Granulocytes % 0.500 H Neutrophils % 83.8 H Lymphocytes % 8.7 L Monocytes % 6.3 Eosinophils % 0.5 Basophils % 0.2 Nucleated Red Blood 0.0 Cells % Immature Granulocytes # 0.070 H Neutrophils # 11.9 H Lymphocytes # 1.2 Monocytes # 0.9 Eosinophils # 0.1 Basophils # 0.0 Nucleated Red Blood 0.0 Cells # Sodium Level 141 Potassium Level 3.1 L Chloride Level 109 Carbon Dioxide Level 21 Anion Gap 11 Blood Urea Nitrogen 29 #H Creatinine 1.15 Est Glomerular Filtrat > 60 Rate mL/min Glucose Level 292 H Calcium Level 8.8 Phosphorus Level 3.1 Magnesium Level 1.5 L Creatine Kinase 341 H Bedside Glucose 334 H 293 H Subjective 24 Hr Interval Summary Free Text/Dictation She reports he has a little bit of shortness of breath and a cough Constitutional: no complaints Respiratory: cough Cardiovascular: no complaints Gastrointestinal: no complaints Genitourinary: no complaints Exam/Review of Systems Exam Vitals Vital Signs Date Temp Pulse Resp B/P (MAP) Pulse Ox O2 O2 Flow FiO2 Time Delivery Rate 05/02/18 98.3 98 20 110/55 97 Room Air 14:52 (73) 05/01/18 8.0 18:09 05/01/18 21 09:39 Intake and Output 05/01/18 05/01/18 05/02/18 1414:59 22:59 06:59 IntakeIntake Total 1200 ml 2350 ml OutputOutput Total 10 ml 1600 ml BalanceBalance 1190 ml 750 ml Constitutional: alert, oriented Respiratory: clear to auscultation, normal air movement Cardiovascular: regular rate and rhythm, nl pulses Gastrointestinal: soft, nl liver, spleen, non-tender Results Results 24hrs Laboratory Tests Test 05/01/18 16:07 05/01/18 17:46 05/01/18 20:09 05/01/18 21:05 Bedside Glucose 225 H 209 181 196 Test 05/02/18 05:27 05/02/18 08:44 05/02/18 11:47 White Blood Count 14.2 #H Red Blood Count 3.14 L Hemoglobin 8.9 L Hematocrit 26.6 L Mean Corpuscular Volume 84.7 Mean Corpuscular 28.3 L Hemoglobin Mean Corpuscular 33.5 Hemoglobin Concent Red Cell Distribution 14.0 Width Platelet Count 332 Mean Platelet Volume 9.5 Immature Granulocytes % 0.500 H Neutrophils % 83.8 H Lymphocytes % 8.7 L Monocytes % 6.3 Eosinophils % 0.5 Basophils % 0.2 Nucleated Red Blood 0.0 Cells % Immature Granulocytes # 0.070 H Neutrophils # 11.9 H Lymphocytes # 1.2 Monocytes # 0.9 Eosinophils # 0.1 Basophils # 0.0 Nucleated Red Blood 0.0 Cells # Sodium Level 141 Potassium Level 3.1 L Chloride Level 109 Carbon Dioxide Level 21 Anion Gap 11 Blood Urea Nitrogen 29 #H Creatinine 1.15 Est Glomerular Filtrat > 60 Rate mL/min Glucose Level 292 H Calcium Level 8.8 Phosphorus Level 3.1 Magnesium Level 1.5 L Creatine Kinase 341 H Bedside Glucose 334 H 293 H Medications Medication Current Medications IV Flush (NS 3 ml) 3 ml PER PROTOCOL IV ; Start 04/29/18 at 19:00 Acetaminophen/ Hydrocodone Bitart ([place] (5/325)) 2 tab Q6H PRN PO .SEVERE PAIN 7-10 Last administered on 05/01/18 11:42; Admin Dose 2 TAB; Start 04/29/18 at 19:00 Heparin Sodium (Porcine) (Heparin (5000 Units/1ml)) 5,000 unit Q12 SC Last administered on 05/02/18 08:52; Admin Dose 5,000 UNIT; Start 04/29/18 at 21:00 Fluconazole (Diflucan) 200 mg DAILY PO Last administered on 05/02/18 08:49; Admin Dose 200 MG; Start 04/29/18 at 22:00 Levofloxacin/ Dextrose 100 ml @ 100 mls/hr Q24H IVPB Last administered on 05/01/18 21:38; Admin Dose 100 MLS/HR; Start 04/29/18 at 22:00 Ondansetron HCl (Zofran Inj) 4 mg Q4H PRN IV NAUSEA AND/OR VOMITING Last administered on 05/02/18 08:49; Admin Dose 4 MG; Start 04/30/18 at 05:00 Insulin Glargine (Lantus) 16 units DAILY@2000 SC Last administered on 05/01/18 20:12; Admin Dose 16 UNITS; Start 04/30/18 at 20:00 Insulin Aspart (Novolog Insulin Pen) 5 unit WITH MEALS SC Last administered on 05/02/18 11:48; Admin Dose 5 UNIT; Start 04/30/18 at 11:30 Sodium Hypochlorite (Dakin'S (Dilute )) 1 applic DAILY IRR Last administered on 05/01/18 09:00; Admin Dose 1 APPLIC; Start 04/30/18 at 15:00 Daptomycin 650 mg/ Sodium Chloride 100 ml @ 200 mls/hr Q24H IVPB Last administered on 04/30/18 16:27; Admin Dose 200 MLS/HR; Start 04/30/18 at 16:00 Albuterol/ Ipratropium (Duoneb) 3 ml Q4H RESP THERAPY PRN HHN SHORTNESS OF BREATH Last administered on 05/01/18 09:37; Admin Dose 3 ML; Start 04/30/18 at 20:00 Pantoprazole (Protonix Iv) 40 mg DAILY@06 IV Last administered on 05/02/18 06:15; Admin Dose 40 MG; Start 05/01/18 at 13:00 Insulin Aspart (Novolog Insulin Pen) NOVOLOG *MILD* ALGORITHM WITH MEALS BEDTIME SC Last administered on 05/02/18 11:49; Admin Dose 4 UNIT; Start 05/01/18 at 21:00 MARIAH WALKER MD May 02, 2018 15:18
[2018-05-02] MEDS ORDERED: MAGNESIUM SULFATE 3 GM in DEXTROSE 5% 100 ML IVPB ONE (16:00)
[2018-05-02] MEDS: DAPTOMYCIN 650 MG in SOD CHLORIDE 0.9% 100 ML IVPB SCH (16:33)
--- NOTE | 2018-05-02 16:57 | CONS ---
Consultation Date/Type/Reason Admit Date/Time Apr 29, 2018 at 18:18 Initial Consult Date SUBJECTIVE: Pt is awake, alert, afebrile. VS: stable T: 98.3 LABS: REviewed. WBC- 14.2 -Increased. Microbiology: Blood cultures remain negative. Wound culture growing gram- negative rods preliminary, previously grew VRE Elisabeth albicans and E. coli Lt foot wound culture: GRAM STAIN Final POLYMORPH. LEUKOCYTE 1+ GRAM POSITIVE COCCI 1+ GRAM POSITIVE RODS 1+ GRAM NEGATIVE RODS 1+ WOUND CULTURE Preliminary Organism 1 ESCHERICHIA COLI QUANTITY 2+ Organism 2 ENTEROCOCCUS SPECIES QUANTITY 3+ Organism 3 DIPTHEROIDS QUANTITY 3+ E COLI M.I.C. RX --------- --- AMPICILLIN 4 S CEFAZOLIN R CEFOTAXIME S CIPROFLOXACIN >=4 R GENTAMICIN <=1 S LEVOFLOXACIN >=8 R TOBRAMYCIN <=1 S TRIMETHOPRIM/SULFAMETHOXAZOLE <=20 S BLOOD CULTURE Preliminary NO GROWTH AFTER 3 DAYS Antimicrobials: Daptomycin, Levaquin, fluconazole PHYSICAL EXAMINATION: GENERAL: This is a well-developed, well-nourished, middle-aged man who is awake, in no distress. HEENT: Head is atraumatic, normocephalic. NECK: Supple. CHEST: Rise symmetrical. Breath sounds diminished to bases. HEART: S1, S2. ABDOMEN: Soft. Bowel tones are present. EXTREMITIES: With left foot dressing intact. Assessment: 1. 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 Diabetes 3. Obesity 4. Acute possibly on chronic kidney disease Plan: Patient is stable. S/P Left foot excisional debridement and Application of antibiotic spacer yesterday. Will D/C Levaquin and start Rocephin IV. Continue local wound care per podiatry recommendations. Date/Time of Note DATE: 05/02/18 TIME: 16:52 Exam/Review of Systems Exam Vitals Vital Signs Date Temp Pulse Resp B/P (MAP) Pulse Ox O2 O2 Flow FiO2 Time Delivery Rate 05/02/18 98.3 98 20 110/55 97 Room Air 14:52 (73) 05/01/18 8.0 18:09 05/01/18 21 09:39 Intake and Output 05/01/18 05/01/18 05/02/18 1515:00 23:00 07:00 IntakeIntake Total 1200 ml 2350 ml OutputOutput Total 10 ml 1600 ml BalanceBalance 1190 ml 750 ml Results Result Diagram: 05/02/18 0505/02/18526 Results 24hrs Laboratory Tests Test 05/01/18 17:46 05/01/18 20:09 05/01/18 21:05 05/02/18 05:27 Bedside Glucose 209 181 196 White Blood Count 14.2 #H Red Blood Count 3.14 L Hemoglobin 8.9 L Hematocrit 26.6 L Mean Corpuscular Volume 84.7 Mean Corpuscular 28.3 L Hemoglobin Mean Corpuscular 33.5 Hemoglobin Concent Red Cell Distribution 14.0 Width Platelet Count 332 Mean Platelet Volume 9.5 Immature Granulocytes % 0.500 H Neutrophils % 83.8 H Lymphocytes % 8.7 L Monocytes % 6.3 Eosinophils % 0.5 Basophils % 0.2 Nucleated Red Blood 0.0 Cells % Immature Granulocytes # 0.070 H Neutrophils # 11.9 H Lymphocytes # 1.2 Monocytes # 0.9 Eosinophils # 0.1 Basophils # 0.0 Nucleated Red Blood 0.0 Cells # Sodium Level 141 Potassium Level 3.1 L Chloride Level 109 Carbon Dioxide Level 21 Anion Gap 11 Blood Urea Nitrogen 29 #H Creatinine 1.15 Est Glomerular Filtrat > 60 Rate mL/min Glucose Level 292 H Calcium Level 8.8 Phosphorus Level 3.1 Magnesium Level 1.5 L Creatine Kinase 341 H Test 05/02/18 08:44 05/02/18 11:47 05/02/18 15:40 Bedside Glucose 334 H 293 H C-Reactive Protein 26.6 H Medications Medication Current Medications IV Flush (NS 3 ml) 3 ml PER PROTOCOL IV ; Start 04/29/18 at 19:00 Acetaminophen/ Hydrocodone Bitart ([place] (5/325)) 2 tab Q6H PRN PO .SEVERE PAIN 7-10 Last administered on 05/01/18at 11:42; Admin Dose 2 TAB; Start 04/29/18 at 19:00 Heparin Sodium (Porcine) (Heparin (5000 Units/1ml)) 5,000 unit Q12 SC Last administered on 05/02/18at 08:52; Admin Dose 5,000 UNIT; Start 04/29/18 at 21:00 Fluconazole (Diflucan) 200 mg DAILY PO Last administered on 05/02/18at 08:49; Admin Dose 200 MG; Start 04/29/18 at 22:00 Levofloxacin/ Dextrose 100 ml @ 100 mls/hr Q24H IVPB Last administered on 05/01/18 21:38; Admin Dose 100 MLS/HR; Start 04/29/18 at 22:00 Ondansetron HCl (Zofran Inj) 4 mg Q4H PRN IV NAUSEA AND/OR VOMITING Last administered on 05/02/18 08:49; Admin Dose 4 MG; Start 04/30/18 at 05:00 Insulin Glargine (Lantus) 16 units DAILY@2000 SC Last administered on 05/01/18 20:12; Admin Dose 16 UNITS; Start 04/30/18 at 20:00 Insulin Aspart (Novolog Insulin Pen) 5 unit WITH MEALS SC Last administered on 05/02/18 11:48; Admin Dose 5 UNIT; Start 04/30/18 at 11:30 Sodium Hypochlorite (Dakin'S (Dilute )) 1 applic DAILY IRR Last administered on 05/01/18 09:00; Admin Dose 1 APPLIC; Start 04/30/18 at 15:00 Daptomycin 650 mg/ Sodium Chloride 100 ml @ 200 mls/hr Q24H IVPB Last administered on 05/02/18 16:33; Admin Dose 200 MLS/HR; Start 04/30/18 at 16:00 Albuterol/ Ipratropium (Duoneb) 3 ml Q4H RESP THERAPY PRN HHN SHORTNESS OF BREATH Last administered on 05/01/18 09:37; Admin Dose 3 ML; Start 04/30/18 at 20:00 Pantoprazole (Protonix Iv) 40 mg DAILY@06 IV Last administered on 05/02/18 06:15; Admin Dose 40 MG; Start 05/01/18 at 13:00 Insulin Aspart (Novolog Insulin Pen) NOVOLOG *MILD* ALGORITHM WITH MEALS BEDTIME SC Last administered on 05/02/18 11:49; Admin Dose 4 UNIT; Start 05/01/18 at 21:00 Magnesium Sulfate 3 gm/Dextrose 106 ml @ 35.333 mls/ hr ONCE ONCE IVPB ; Start 05/02/18 at 16:00; Stop 05/02/18 at 18:59 SARAI JOHN May 02, 2018 16:57
[2018-05-02] MEDS: CEFTRIAXONE 1 GM/50 ML (PMX) 50 ML IVPB SCH (17:36)
--- NOTE | 2018-05-02 18:28 | CONS ---
Assessment/Plan Assessment/Plan Assessment/Plan (Daily) Left foot diabetic ulcer Left foot osteomyelitis Left foot cellulitis DTI left foot DM2 with peripheral neuropathy ALESSANDRO Plan: Dressings were changed and to be keep clean dry and intact. Intra op cultures and pathology pending. Currently showing e.coli, enteroccocus species, and corynebacterium. Offload heels with pillows. X-rays and MRI reviewed with noted signs of osteomyelitis. IV abx and antifungal therapy per ID recommendations. Previous cultures showed VRE, e.coli and yuliana albicans. Non invasive arterial studies reviewed and recommend vascular evaluation. Per photonics engineering technologist patient was unable to tolerate complete MRI exam and no sagittal views are available. Discussed with patient possibility of TMA if wounds do not improve. Also discussed further IV PICC line abx and outpatient HBO therapy. Patient wants to pursue abx, local wound care and HBO therapy. Consultation Date/Type/Reason Admit Date/Time Apr 29, 2018 at 18:18 Initial Consult Date Date/Time of Note DATE: 05/02/18 TIME: 18:28 24 HR Interval Summary Free Text/Dictation No acute events overnight. Exam/Review of Systems Exam Vitals Vital Signs Date Temp Pulse Resp B/P (MAP) Pulse Ox O2 O2 Flow FiO2 Time Delivery Rate 05/02/18 98.3 98 20 110/55 97 Room Air 14:52 (73) 05/01/18 8.0 18:09 05/01/18 21 09:39 Intake and Output 05/01/18 05/01/18 05/02/18 1515:00 23:00 07:00 IntakeIntake Total 1200 ml 2350 ml OutputOutput Total 10 ml 1600 ml BalanceBalance 1190 ml 750 ml Exam DP/PT pulses palpable Absent protective sensations Left plantar hallux ulceration mixed fibrotic and granular wound base 4 x 2 x 1.5cm which probes to bone and communicates with dorsal hallux ulceration site 2 x 1 x 1.5cm. There is surrounding erythema and maceration noted to the forefoot area. Purulent drainage appreciated to the left hallux ulceration sites There are ulcerations between the lesser digits on the medial and lateral aspects of digits 2-4 mixed fibrotic and granular wound base 0.2 x 0.2 x 0.2cm and interdigital maceration appreciated. There is deep tissue injury noted to the left 5th digit with maceration noted. Ulceration noted to the medial aspect of the 5th digit 0.4 x 0.3 x 0.1cm Muscle strength 5/5 in all compartments of the foot. Foot X-ray IMPRESSION: Findings consistent with osteomyelitis at the great toe proximal and distal phalanges, the second proximal phalanx and distal metatarsal, and possibly the third proximal phalanx and distal metatarsal. Non invasive arterial studies IMPRESSION: No evidence of a significant arterial stenosis in the right lower extremity. Change from triphasic to monophasic waveforms in the left popliteal artery consistent with a significant stenosis between the distal left superficial femoral artery and popliteal artery. Results Result Diagram: 05/02/1852605/02/18526 Results 24hrs Laboratory Tests Test 05/01/18 20:09 05/01/18 21:05 05/02/18 05:27 05/02/18 08:44 Bedside Glucose 181 196 334 H White Blood Count 14.2 #H Red Blood Count 3.14 L Hemoglobin 8.9 L Hematocrit 26.6 L Mean Corpuscular Volume 84.7 Mean Corpuscular 28.3 L Hemoglobin Mean Corpuscular 33.5 Hemoglobin Concent Red Cell Distribution 14.0 Width Platelet Count 332 Mean Platelet Volume 9.5 Immature Granulocytes % 0.500 H Neutrophils % 83.8 H Lymphocytes % 8.7 L Monocytes % 6.3 Eosinophils % 0.5 Basophils % 0.2 Nucleated Red Blood 0.0 Cells % Immature Granulocytes # 0.070 H Neutrophils # 11.9 H Lymphocytes # 1.2 Monocytes # 0.9 Eosinophils # 0.1 Basophils # 0.0 Nucleated Red Blood 0.0 Cells # Sodium Level 141 Potassium Level 3.1 L Chloride Level 109 Carbon Dioxide Level 21 Anion Gap 11 Blood Urea Nitrogen 29 #H Creatinine 1.15 Est Glomerular Filtrat > 60 Rate mL/min Glucose Level 292 H Calcium Level 8.8 Phosphorus Level 3.1 Magnesium Level 1.5 L Creatine Kinase 341 H Test 05/02/18 11:47 05/02/18 15:40 05/02/18 17:27 Bedside Glucose 293 H 301 H Erythrocyte 85 H Sedimentation Rate C-Reactive Protein 26.6 H Medications Medication Current Medications IV Flush (NS 3 ml) 3 ml PER PROTOCOL IV ; Start 04/29/18 at 19:00 Acetaminophen/ Hydrocodone Bitart ([place] (5/325)) 2 tab Q6H PRN PO .SEVERE PAIN 7-10 Last administered on 05/01/18 11:42; Admin Dose 2 TAB; Start 04/29/18 at 19:00 Heparin Sodium (Porcine) (Heparin (5000 Units/1ml)) 5,000 unit Q12 SC Last administered on 05/02/18 08:52; Admin Dose 5,000 UNIT; Start 04/29/18 at 21:00 Fluconazole (Diflucan) 200 mg DAILY PO Last administered on 05/02/18 08:49; Admin Dose 200 MG; Start 04/29/18 at 22:00 Levofloxacin/ Dextrose 100 ml @ 100 mls/hr Q24H IVPB Last administered on 05/01/18 21:38; Admin Dose 100 MLS/HR; Start 04/29/18 at 22:00 Ondansetron HCl (Zofran Inj) 4 mg Q4H PRN IV NAUSEA AND/OR VOMITING Last admini stered on 05/02/18 08:49; Admin Dose 4 MG; Start 04/30/18 at 05:00 Insulin Glargine (Lantus) 16 units DAILY@2000 SC Last administered on 05/01/18 20:12; Admin Dose 16 UNITS; Start 04/30/18 at 20:00 Insulin Aspart (Novolog Insulin Pen) 5 unit WITH MEALS SC Last administered on 05/02/18 11:48; Admin Dose 5 UNIT; Start 04/30/18 at 11:30 Sodium Hypochlorite (Dakin'S (Dilute 40)) 1 applic DAILY IRR Last administered on 05/01/18 09:00; Admin Dose 1 APPLIC; Start 04/30/18 at 15:00 Daptomycin 650 mg/ Sodium Chloride 100 ml @ 200 mls/hr Q24H IVPB Last administered on 04/30/18 16:27; Admin Dose 200 MLS/HR; Start 04/30/18 at 16:00 Albuterol/ Ipratropium (Duoneb) 3 ml Q4H RESP THERAPY PRN HHN SHORTNESS OF BREATH Last administered on 05/01/18 09:37; Admin Dose 3 ML; Start 04/30/18 at 20:00 Pantoprazole (Protonix Iv) 40 mg DAILY@06 IV Last administered on 05/02/18 06:15; Admin Dose 40 MG; Start 05/01/18 at 13:00 Insulin Aspart (Novolog Insulin Pen) NOVOLOG *MILD* ALGORITHM WITH MEALS BEDTIME SC Last administered on 05/02/18at 11:49; Admin Dose 4 UNIT; Start 05/01/18 at 21:00 Potassium Chloride (Klor-Con 20) 40 meq ONCE STAT PO ; Start 05/02/18 at 15:16; Stop 05/02/18 at 15:17; Status UNV Magnesium Sulfate 3 gm/Dextrose 106 ml @ 35.333 mls/ hr ONCE ONCE IVPB ; Start 05/02/18 at 15:30; Stop 05/02/18 at 18:29; Status UNV NIMISHA HENNING DPM May 02, 2018 18:28
[2018-05-02 20:00] VITALS: BP 141/63; PULSE 100; RESP 18
[2018-05-02] MEDS ORDERED: DOCUSATE SODIUM 100 MG CAP PO ONE (20:26)
[2018-05-02] MEDS ORDERED: POLYETHYLENE GLYCOL 17 GM PACKET ONE (20:26)
[2018-05-02] MEDS: INSULIN GLARGINE [LANTus] (100 UNITS/ML) SYG SC SCH (20:34)
[2018-05-02] MEDS: ZYVOX 600 MG TAB PO SCH (20:35)
[2018-05-02] MEDS: DOCUSATE SODIUM 100 MG CAP PO SCH (20:35)
[2018-05-02] MEDS: POLYETHYLENE GLYCOL 17 GM PACKET PO SCH (20:35)
[2018-05-03 02:00] VITALS: BP 106/53; PULSE 63; RESP 18
[2018-05-03] MEDS ORDERED: INSULIN ASPART [NOVOLOG] 3 ML PEN SC ONE ×2 (04:00→21:30)
[2018-05-03] MEDS: PANTOPRAZOLE 40 MG INJ IV SCH (05:43)
[2018-05-03] MEDS: SODIUM HYPOCHLORITE (1/40) 1 APPLIC BTL IRR SCH (07:54)
[2018-05-03] MEDS: INSULIN ASPART [NOVOLOG] 3 ML PEN SC SCH ×7 (07:57→20:48)
[2018-05-03] MEDS: HEPARIN 5,000 UNIT/1 ML VIAL SC SCH ×2 (07:58→20:47)
[2018-05-03] MEDS: FLUCONAZOLE 200 MG TAB PO SCH (08:00)
[2018-05-03] MEDS: DOCUSATE SODIUM 100 MG CAP PO SCH ×2 (08:00→20:45)
[2018-05-03] MEDS: POLYETHYLENE GLYCOL 17 GM PACKET PO SCH (08:00)
[2018-05-03] MEDS: ZYVOX 600 MG TAB PO SCH ×2 (08:00→20:48)
[2018-05-03 08:34] VITALS: BP 129/68; PULSE 90; RESP 17
[2018-05-03] MEDS ORDERED: NEUTRA-PHOS 250 MG PACKET PO ONE (09:30)
--- NOTE | 2018-05-03 09:55 | PN ---
DATE: 05/03/2018 SUBJECTIVE: The patient is stable. No events overnight. OBJECTIVE: VITAL SIGNS: Blood pressure is 129/68, pulse 90, respirations 17, temperature 99.3. HEENT: Head is normocephalic. NECK: Supple. HEART: Regular rate. LUNGS: Show diminished breath sounds at the base. ABDOMEN: Soft, nontender to palpation without rebound or guarding. EXTREMITIES: Negative for clubbing, cyanosis, edema. DERMATOLOGIC: No rashes. MUSCULOSKELETAL: No joint effusion. NEUROLOGIC: No change in exam. MEDICATIONS: Reviewed. LABORATORY DATA: Shows a BMP within normal limits. Phosphorus 2.3. ASSESSMENT AND PLAN: 1. Nonoliguric acute kidney injury with previous baseline creatinine of 1.0 mg/dL. Etiology of acut e kidney injury is secondary to hemodynamics, NSAID use. The patient's renal function has improved, currently at baseline. Continue current treatment plan, supportive care, renally dose all meds. 2. Hyperchloremic metabolic acidosis. Etiology is secondary to acute kidney injury. The patient is status post bicarbonate drip. Will continue to monitor. 3. Anemia. Monitor hemoglobin and hematocrit levels. 4. Mineral bone disorder. Monitor calcium and phosphorus levels. 5. Osteomyelitis. Continue current medical management. Follow up podiatry. 6. Diabetes. Continue current insulin regimen. 7. Hypokalemia, hypomagnesemia, improved. 8. Hypophosphatemia. Will replete with sodium phosphate. Dictated By: JACQUI DURÁN DO NR/NTS Conf#: [id number] DID#: [id number] CC: TRU LANIER MD;*EndCC*
--- NOTE | 2018-05-03 12:56 | CONS ---
Consultation Date/Type/Reason Admit Date/Time Apr 29, 2018 at 18:18 Initial Consult Date SUBJECTIVE: Pt is awake, alert, afebrile. VS: stable T: 98.3 LABS: REviewed. WBC- 14.4 -Increased. CK is 341 today Microbiology: Blood cultures remain negative. Wound culture growing gram- negative rods preliminary, previously grew VRE Elisabeth albicans and E. coli Lt foot wound culture: GRAM STAIN Final POLYMORPH. LEUKOCYTE 1+ GRAM POSITIVE COCCI 1+ GRAM POSITIVE RODS 1+ GRAM NEGATIVE RODS 1+ WOUND CULTURE Preliminary Organism 1 ESCHERICHIA COLI QUANTITY 2+ Organism 2 ENTEROCOCCUS SPECIES QUANTITY 3+ Organism 3 DIPTHEROIDS QUANTITY 3+ E COLI M.I.C. RX --------- --- AMPICILLIN 4 S CEFAZOLIN R CEFOTAXIME S CIPROFLOXACIN >=4 R GENTAMICIN <=1 S LEVOFLOXACIN >=8 R TOBRAMYCIN <=1 S TRIMETHOPRIM/SULFAMETHOXAZOLE <=20 S BLOOD CULTURE Preliminary NO GROWTH AFTER 3 DAYS Antimicrobials: Daptomycin, Rocephin, fluconazole PHYSICAL EXAMINATION: GENERAL: This is a well-developed, well-nourished, middle-aged man who is awake, in no distress. HEENT: Head is atraumatic, normocephalic. NECK: Supple. CHEST: Rise symmetrical. Breath sounds diminished to bases. HEART: S1, S2. ABDOMEN: Soft. Bowel tones are present. EXTREMITIES: With left foot dressing intact. Assessment: 1. 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 Diabetes 3. Obesity 4. Acute possibly on chronic kidney disease Plan: Patient is stable. S/P Left foot excisional debridement and Application of antibiotic spacer yesterday. D/C Dapto and start IV Zyvox due to elevated Creati ne Kinase 341. Continue local wound care per podiatry recommendations. Date/Time of Note DATE: 05/03/18 TIME: 12:51 Exam/Review of Systems Exam Vitals Vital Signs Date Temp Pulse Resp B/P (MAP) Pulse Ox O2 O2 Flow FiO2 Time Delivery Rate 05/03/18 99.3 90 17 129/68 98 Room Air 08:34 (88) 05/01/18 8.0 18:09 05/01/18 21 09:39 Intake and Output 05/02/18 05/02/18 05/03/18 1515:00 23:00 07:00 IntakeIntake Total 920 ml 515.333 ml OutputOutput Total 700 ml 725 ml 1000 ml BalanceBalance 220 ml -209.667 ml -1000 ml Results Result Diagram: 05/03/1852605/03/18526 Results 24hrs Laboratory Tests Test 05/02/18 15:40 05/02/18 17:27 05/02/18 20:31 05/03/18 02:03 Erythrocyte 85 H Sedimentation Rate C-Reactive Protein 26.6 H Bedside Glucose 301 H 300 H 305 H Test 05/03/18 04:11 05/03/18 05:27 05/03/18 05:42 05/03/18 07:54 Bedside Glucose 296 H 293 H 271 H White Blood Count 14.4 H Red Blood Count 3.00 L Hemoglobin 8.5 L Hematocrit 25.7 L Mean Corpuscular 85.7 Volume Mean Corpuscular 28.3 L Hemoglobin Mean Corpuscular 33.1 Hemoglobin Concent Red Cell 13.5 Distribution Width Platelet Count 312 Mean Platelet Volume 9.1 Immature 0.800 H Granulocytes % Neutrophils % 80.8 H Lymphocytes % 10.5 L Monocytes % 6.1 Eosinophils % 1.5 Basophils % 0.3 Nucleated Red Blood 0.0 Cells % Immature 0.110 H Granulocytes # Neutrophils # 11.7 H Lymphocytes # 1.5 Monocytes # 0.9 Eosinophils # 0.2 Basophils # 0.0 Nucleated Red Blood 0.0 Cells # Sodium Level 139 Potassium Level 3.6 Chloride Level 107 Carbon Dioxide Level 22 Anion Gap 10 Blood Urea Nitrogen 20 Creatinine 0.98 Est Glomerular > 60 Filtrat Rate mL/min Glucose Level 292 H Calcium Level 8.7 Phosphorus Level 2.3 L Magnesium Level 2.4 Test 05/03/18 11:28 Bedside Glucose 321 H Medications Medication Current Medications IV Flush (NS 3 ml) 3 ml PER PROTOCOL IV ; Start 04/29/18 at 19:00 Acetaminophen/ Hydrocodone Bitart ([place] (5/325)) 2 tab Q6H PRN PO .SEVERE PAIN 7-10 Last administered on 05/01/18at 11:42; Admin Dose 2 TAB; Start 04/29/18 at 19:00 Heparin Sodium (Porcine) (Heparin (5000 Units/1ml)) 5,000 unit Q12 SC Last administered on 05/03/18at 07:58; Admin Dose 5,000 UNIT; Start 04/29/18 at 21:00 Fluconazole (Diflucan) 200 mg DAILY PO Last administered on 05/03/18 08:00; Admin Dose 200 MG; Start 04/29/18 at 22:00 Ondansetron HCl (Zofran Inj) 4 mg Q4H PRN IV NAUSEA AND/OR VOMITING Last administered on 05/02/18 08:49; Admin Dose 4 MG; Start 04/30/18 at 05:00 Insulin Glargine (Lantus) 16 units DAILY@2000 SC Last administered on 05/02/18 20:34; Admin Dose 16 UNITS; Start 04/30/18 at 20:00 Insulin Aspart (Novolog Insulin Pen) 5 unit WITH MEALS SC Last administered on 05/03/18 12:19; Admin Dose 5 UNIT; Start 04/30/18 at 11:30 Sodium Hypochlorite (Dakin'S (Dilute 40)) 1 applic DAILY IRR Last adm inistered on 05/01/18 09:00; Admin Dose 1 APPLIC; Start 04/30/18 at 15:00 Albuterol/ Ipratropium (Duoneb) 3 ml Q4H RESP THERAPY PRN HHN SHORTNESS OF BREATH Last administered on 05/01/18 09:37; Admin Dose 3 ML; Start 04/30/18 at 20:00 Pantoprazole (Protonix Iv) 40 mg DAILY@06 IV Last administered on 05/03/18 05:43; Admin Dose 40 MG; Start 05/01/18 at 13:00 Insulin Aspart (Novolog Insulin Pen) NOVOLOG *MILD* ALGORITHM WITH MEALS BEDTIME SC Last administered on 05/03/18 12:19; Admin Dose 5 UNIT; Start 05/01/18 at 21:00 Ceftriaxone Sodium 50 ml @ 100 mls/hr Q24H IVPB Last administered on 05/02/18 17:36; Admin Dose 100 MLS/HR; Start 05/02/18 at 17:30 Linezolid (Zyvox) 600 mg BID PO Last administered on 05/03/18 08:00; Admin Dose 600 MG; Start 05/02/18 at 21:00 Docusate Sodium (Colace) 100 mg BID PO Last administered on 05/03/18 08:00; Admin Dose 100 MG; Start 05/02/18 at 21:00 Polyethylene Glycol (Miralax) 17 gm DAILY PO Last administered on 05/03/18at 08:00; Admin Dose 17 GM; Start 05/02/18 at 20:30 SARAI JOHN May 03, 2018 12:56
--- NOTE | 2018-05-03 14:05 | PN ---
Date/Time of Note Date/Time of Note DATE: 05/03/18 TIME: 14:03 Assessment/Plan VTE Prophylaxis Risk score (from [facility])>0 risk: 9 SCD applied (from [facility]): Yes Pharmacological prophylaxis: heparin Lines/Catheters IV Catheter Type (from [facility]): [place] Urinary Cath still in place: No Assessment/Plan Problems: (1) Osteomyelitis Status: Acute Comment: He is receiving a PICC line in preparation for home IV antibiotic therapy Qualifiers: Osteomyelitis type: unspecified type Osteomyelitis location: foot Laterality: left Qualified Codes: M86.9 - Osteomyelitis, unspecified (2) Diabetes mellitus type 2 in obese Status: Chronic Comment: His control needs some work. This would actually be an appropriate place to use metformin. This will not be an issue with his electrolytes based on the information available (3) Hyperlipidemia associated with type 2 diabetes mellitus Status: Chronic Comment: Continue with statin (4) Essential hypertension Status: Chronic Comment: Well-controlled Result Diagram: 05/03/18 0527 05/03/18 0527 Results 24hrs Laboratory Tests Test 05/02/18 15:40 05/02/18 17:27 05/02/18 20:31 05/03/18 02:03 Erythrocyte 85 H Sedimentation Rate C-Reactive Protein 26.6 H Bedside Glucose 301 H 300 H 305 H Test 05/03/18 04:11 05/03/18 05:27 05/03/18 05:42 05/03/18 07:54 Bedside Glucose 296 H 293 H 271 H White Blood Count 14.4 H Red Blood Count 3.00 L Hemoglobin 8.5 L Hematocrit 25.7 L Mean Corpuscular 85.7 Volume Mean Corpuscular 28.3 L Hemoglobin Mean Corpuscular 33.1 Hemoglobin Concent Red Cell 13.5 Distribution Width Platelet Count 312 Mean Platelet Volume 9.1 Immature 0.800 H Granulocytes % Neutrophils % 80.8 H Lymphocytes % 10.5 L Monocytes % 6.1 Eosinophils % 1.5 Basophils % 0.3 Nucleated Red Blood 0.0 Cells % Immature 0.110 H Granulocytes # Neutrophils # 11.7 H Lymphocytes # 1.5 Monocytes # 0.9 Eosinophils # 0.2 Basophils # 0.0 Nucleated Red Blood 0.0 Cells # Sodium Level 139 Potassium Level 3.6 Chloride Level 107 Carbon Dioxide Level 22 Anion Gap 10 Blood Urea Nitrogen 20 Creatinine 0.98 Est Glomerular > 60 Filtrat Rate mL/min Glucose Level 292 H Calcium Level 8.7 Phosphorus Level 2.3 L Magnesium Level 2.4 Test 05/03/18 11:28 Bedside Glucose 321 H Subjective 24 Hr Interval Summary Free Text/Dictation Patient reports he is feeling okay today. He reports he had previously been on metformin but that was stopped by the clinic doctor. He has no idea why was stopped and denied any type of GI symptoms. He has normal renal function Constitutional: no complaints Respiratory: no complaints Cardiovascular: no complaints Exam/Review of Systems Exam Vitals Vital Signs Date Temp Pulse Resp B/P (MAP) Pulse Ox O2 O2 Flow FiO2 Time Delivery Rate 05/03/18 99.3 90 17 129/68 98 Room Air 08:34 (88) 05/01/18 8.0 18:09 05/01/18 21 09:39 Intake and Output 05/02/18 05/02/18 05/03/18 1414:59 22:59 06:59 IntakeIntake Total 920 ml 515.333 ml OutputOutput Total 700 ml 725 ml 1000 ml BalanceBalance 220 ml -209.667 ml -1000 ml Constitutional: alert, oriented Respiratory: clear to auscultation, normal air movement Cardiovascular: regular rate and rhythm, nl pulses Gastrointestinal: soft, nl liver, spleen, non-tender Extremities: other (Left extremity bandaged) Results Results 24hrs Laboratory Tests Test 05/02/18 15:40 05/02/18 17:27 05/02/18 20:31 05/03/18 02:03 Erythrocyte 85 H Sedimentation Rate C-Reactive Protein 26.6 H Bedside Glucose 301 H 300 H 305 H Test 05/03/18 04:11 05/03/18 05:27 05/03/18 05:42 05/03/18 07:54 Bedside Glucose 296 H 293 H 271 H White Blood Count 14.4 H Red Blood Count 3.00 L Hemoglobin 8.5 L Hematocrit 25.7 L Mean Corpuscular 85.7 Volume Mean Corpuscular 28.3 L Hemoglobin Mean Corpuscular 33.1 Hemoglobin Concent Red Cell 13.5 Distribution Width Platelet Count 312 Mean Platelet Volume 9.1 Immature 0.800 H Granulocytes % Neutrophils % 80.8 H Lymphocytes % 10.5 L Monocytes % 6.1 Eosinophils % 1.5 Basophils % 0.3 Nucleated Red Blood 0.0 Cells % Immature 0.110 H Granulocytes # Neutrophils # 11.7 H Lymphocytes # 1.5 Monocytes # 0.9 Eosinophils # 0.2 Basophils # 0.0 Nucleated Red Blood 0.0 Cells # Sodium Level 139 Potassium Level 3.6 Chloride Level 107 Carbon Dioxide Level 22 Anion Gap 10 Blood Urea Nitrogen 20 Creatinine 0.98 Est Glomerular > 60 Filtrat Rate mL/min Glucose Level 292 H Calcium Level 8.7 Phosphorus Level 2.3 L Magnesium Level 2.4 Test 05/03/18 11:28 Bedside Glucose 321 H Medications Medication Current Medications IV Flush (NS 3 ml) 3 ml PER PROTOCOL IV ; Start 04/29/18 at 19:00 Acetaminophen/ Hydrocodone Bitart ([place] (5/325)) 2 tab Q6H PRN PO .SEVERE PAIN 7-10 Last administered on 05/01/18 11:42; Admin Dose 2 TAB; Start 04/29/18 at 19:00 Heparin Sodium (Porcine) (Heparin (5000 Units/1ml)) 5,000 unit Q12 SC Last administered on 05/03/18 07:58; Admin Dose 5,000 UNIT; Start 04/29/18 at 21:00 Fluconazole (Diflucan) 200 mg DAILY PO Last administered on 05/03/18 08:00; Admin Dose 200 MG; Start 04/29/18 at 22:00 Ondansetron HCl (Zofran Inj) 4 mg Q4H PRN IV NAUSEA AND/OR VOMITING Last administered on 05/02/18 08:49; Admin Dose 4 MG; Start 04/30/18 at 05:00 Insulin Glargine (Lantus) 16 units DAILY@2000 SC Last administered on 05/02/18 20:34; Admin Dose 16 UNITS; Start 04/30/18 at 20:00 Insulin Aspart (Novolog Insulin Pen) 5 unit WITH MEALS SC Last administered on 05/03/18 12:19; Admin Dose 5 UNIT; Start 04/30/18 at 11:30 Sodium Hypochlorite (Dakin'S (Dilute )) 1 applic DAILY IRR Last administered on 05/01/18 09:00; Admin Dose 1 APPLIC; Start 04/30/18 at 15:00 Albuterol/ Ipratropium (Duoneb) 3 ml Q4H RESP THERAPY PRN HHN SHORTNESS OF BREATH Last administered on 05/01/18 09:37; Admin Dose 3 ML; Start 04/30/18 at 20:00 Pantoprazole (Protonix Iv) 40 mg DAILY@06 IV Last administered on 05/03/18 05:43; Admin Dose 40 MG; Start 05/01/18 at 13:00 Insulin Aspart (Novolog Insulin Pen) NOVOLOG *MILD* ALGORITHM WITH MEALS BEDTIME SC Last administered on 05/03/18 12:19; Admin Dose 5 UNIT; Start 05/01/18 at 21:00 Ceftriaxone Sodium 50 ml @ 100 mls/hr Q24H IVPB Last administered on 05/02/18 17:36; Admin Dose 100 MLS/HR; Start 05/02/18 at 17:30 Linezolid (Zyvox) 600 mg BID PO Last administered on 05/03/18 08:00; Admin Dose 600 MG; Start 05/02/18 at 21:00 Docusate Sodium (Colace) 100 mg BID PO Last administered on 05/03/18 08:00; Admin Dose 100 MG; Start 05/02/18 at 21:00 Polyethylene Glycol (Miralax) 17 gm DAILY PO Last administered on 05/03/18 08:00; Admin Dose 17 GM; Start 05/02/18 at 20:30 MARIAH WALKER MD May 03, 2018 14:05
[2018-05-03] MEDS ORDERED: GLUCOSE GEL 15 GRAM TUBE BUCCAL PRN (14:30)
[2018-05-03] MEDS ORDERED: GLUCAGON 1 MG INJ IM PRN (14:30)
[2018-05-03] MEDS ORDERED: DEXTROSE 50% 50 ML SYRINGE IV PRN ×2 (14:30)
[2018-05-03] MEDS ORDERED: GLUCOSE GEL 15 GRAM TUBE PO PRN ×2 (14:30)
[2018-05-03 15:06] VITALS: BP 116/65; PULSE 87; RESP 17
[2018-05-03] MEDS: CEFTRIAXONE 1 GM/50 ML (PMX) 50 ML IVPB SCH (16:09)
[2018-05-03] MEDS: ACCU-CHEK XX SCH ×2 (17:21→21:00)
[2018-05-03] MEDS: metFORMIN 500 MG TAB PO SCH (17:28)
[2018-05-03 20:20] VITALS: BP 121/61; PULSE 92; RESP 18
[2018-05-03] MEDS: INSULIN GLARGINE [LANTus] (100 UNITS/ML) SYG SC SCH (20:44)
[2018-05-04 02:21] VITALS: BP 130/69; PULSE 89; RESP 18
[2018-05-04] MEDS ORDERED: INSULIN ASPART [NOVOLOG] 3 ML PEN SC ONE (06:00)
[2018-05-04] MEDS: PANTOPRAZOLE 40 MG INJ IV SCH (06:07)
[2018-05-04] MEDS: ACCU-CHEK XX SCH ×4 (07:30→20:55)
[2018-05-04] MEDS: INSULIN ASPART [NOVOLOG] 3 ML PEN SC SCH ×7 (07:35→21:11)
[2018-05-04 08:22] VITALS: BP 125/62; PULSE 87; RESP 17
[2018-05-04] MEDS: FLUCONAZOLE 200 MG TAB PO SCH (08:34)
[2018-05-04] MEDS: ZYVOX 600 MG TAB PO SCH ×2 (08:34→20:42)
[2018-05-04] MEDS: metFORMIN 500 MG TAB PO SCH ×2 (08:34→18:13)
[2018-05-04] MEDS: SODIUM HYPOCHLORITE (1/40) 1 APPLIC BTL IRR SCH (09:00)
[2018-05-04] MEDS: POLYETHYLENE GLYCOL 17 GM PACKET PO SCH (09:00)
[2018-05-04] MEDS: DOCUSATE SODIUM 100 MG CAP PO SCH ×2 (09:00→20:42)
--- NOTE | 2018-05-04 10:09 | PN ---
DATE: 05/04/2018 SUBJECTIVE: The patient is stable, no events overnight. No fevers, chills, nausea, or vomiting. OBJECTIVE: VITAL SIGNS: Blood pressure is 125/62, respirations 17, pulse 87, temperature 99.7. HEENT: Head is normocephalic. NECK: Supple. HEART: Regular rate. LUNGS: Show diminished breath sounds at the base. ABDOMEN: Soft, nontender to palpation without rebound or guarding. EXTREMITIES: Negative for clubbing, cyanosis. Trace edema. DERMATOLOGIC: No rashes. MUSCULOSKELETAL: No joint effusion. NEUROLOGIC: No change in exam. MEDICATIONS: Reviewed. LABORATORY DATA: Reviewed. ASSESSMENT AND PLAN: 1. Nonoliguric acute kidney injury with previous baseline creatinine of 1.0 mg/dL. Etiology of acut e kidney injury is secondary to hemodynamics, NSAID use. Renal function is currently improved. Cont inue current treatment plan, supportive care, renally dose all medicines. 2. Metabolic acidosis secondary to acute kidney injury, resolved. The patient is status post bicarb graham drip. 3. Anemia. Monitor hemoglobin and hematocrit levels. 4. Mineral bone disorder, monitor calcium and phosphorus levels. 5. Osteomyelitis. Continue current medical management. Follow up with podiatry. 6. Diabetes. Continue current insulin regimen. 7. Hypokalemia and hypomagnesemia, improved. Dictated By: JACQUI DURÁN DO NR/NTS Conf#: [id number] DID#: [id number] CC: TRU LANIER MD; KATHERINE DYER MD; JACQUI DURÁN DO;*EndCC*
--- NOTE | 2018-05-04 12:02 | CONS ---
DATE OF ADMISSION: 04/29/2018 DATE OF CONSULTATION: 05/04/2018 REFERRING PHYSICIAN: Dr. Rachelle Waite. REASON FOR CONSULTATION: Evaluate left foot diabetic ulcer, necrotizing infection. HISTORY OF PRESENT ILLNESS: This is a 57-year-old diabetic gentleman admitted with left foot infecti on. He has had some acute renal failure associated with it. He has been using ibuprofen. He was ta miguel angel to the OR by Dr. Boston over the weekend and debrided and arterial study done. It did show mo nophasic waveforms in all the tibial vessels. His kidney function is returning to normal. MEDICATIONS: Consist of: 1. Insulin. 2. Metformin. 3. Zyvox. 4. Colace. 5. Ceftriaxone. 6. Pantoprazole 7. Albuterol. 8. Dakin. 9. Zofran. 10. Subcutaneous heparin. SOCIAL HISTORY is a nonsmoker. He does not drink or use any illicit drugs. FAMILY HISTORY: Noncontributory. Has not had any surgery prior to this admission. REVIEW OF SYSTEMS: He currently denies any chest pain, shortness of breath, nausea, vomiting, diarrh ea. No fever, no chills, no recent weight gain or weight loss. No abdominal or back pain. PHYSICAL EXAMINATION GENERAL: He is a middle-aged gentleman. He speaks U[place]. He is afebrile. VITAL SIGNS: His blood pressure 125/62, heart rate 87, respiratory rate is 17, 96% sat on room air. NECK: He has 2+ carotid, radial and brachial pulses bilaterally. LUNGS: Clear. HEART: Regular rate and rhythm. ABDOMEN: Soft, nontender, nondistended. EXTREMITIES: He has 2+ femoral and popliteal pulses bilaterally. I do not feel DP or PT pulses in e ither foot. The left is wrapped up. He has some bloody serous drainage coming from the left foot. I did not unwrap it. LABS: His white count has come down from 18 to 13. His creatinine came in was 2.2. It has come radha n to 1 today. It is still trending down. He is on appropriate IV antibiotics. His arterial duplex tibial disease. I am going to schedule him for an angiogram on Friday and let his kidneys recover a little bit more before we proceed. I discussed that with him and he is agreeable. Dictated By: ALEX MILLER/LUCIEN Conf#: [id number] DID#: [id number] CC: JACQUI DURÁN DO; MARIAH WALKER MD; RACHELLE WAITE DPM; TRU LANIER MD;*EndCC*
--- NOTE | 2018-05-04 12:59 | CONS ---
Assessment/Plan Assessment/Plan Hospital Course (Demo Recall) Patient is awake talking on the phone looks comfortable he feels better. WBC 13.5 with neutrophils 80.7. ESR 100. BUN 20 creatinine 0.98. Microbiology: Left foot wound culture growing VRE resistant to ampicillin, E. coli and Corynebacterium species Antimicrobials: Zyvox Rocephin fluconazole Antimicrobials: Daptomycin, Levaquin, fluconazole PHYSICAL EXAMINATION: GENERAL: This is a well-developed, well-nourished, middle-aged man who is awake, in no distress. HEENT: Head is atraumatic, normocephalic. NECK: Supple. CHEST: Rise symmetrical. Breath sounds diminished to bases. HEART: S1, S2. ABDOMEN: Soft. Bowel tones are present. EXTREMITIES: With left foot dressing intact. Assessment: 1. 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 Diabetes 3. Obesity 4. Acute possibly on chronic kidney disease Plan: Patient remains stable, daptomycin was discontinued secondary to elevated CK, continue local wound care per podiatry recommendations. Patient will require long-term IV antibiotics Consultation Date/Type/Reason Admit Date/Time Apr 29, 2018 at 18:18 Initial Consult Date Type of Consult id Date/Time of Note DATE: 05/04/18 TIME: 12:58 Exam/Review of Systems Exam Vitals Vital Signs Date Temp Pulse Resp B/P (MAP) Pulse Ox O2 O2 Flow FiO2 Time Delivery Rate 05/04/18 99.7 87 17 125/62 96 Room Air 08:22 (83) 05/01/18 8.0 18:09 05/01/18 21 09:39 Intake and Output 05/03/18 05/03/18 05/04/18 1414:59 22:59 06:59 IntakeIntake Total 670 ml 500 ml OutputOutput Total 400 ml 200 ml 1000 ml BalanceBalance -400 ml 470 ml -500 ml Results Result Diagram: 05/04/18 1105 05/03/18 0527 Results 24hrs Laboratory Tests Test 05/03/18 17:21 05/03/18 18:36 05/03/18 20:42 05/04/18 05:28 Bedside Glucose 362 H 329 H 268 H Erythrocyte 90 H Sedimentation Rate Test 05/04/18 08:06 05/04/18 11:05 05/04/18 12:25 Bedside Glucose 256 H 254 H White Blood Count 13.5 H Red Blood Count 3.15 L Hemoglobin 8.7 L Hematocrit 26.9 L Mean Corpuscular 85.4 Volume Mean Corpuscular 27.6 L Hemoglobin Mean Corpuscular 32.3 Hemoglobin Concent Red Cell 13.2 Distribution Width Platelet Count 327 Mean Platelet Volume 8.9 Immature 0.500 H Granulocytes % Neutrophils % 80.7 H Lymphocytes % 10.5 L Monocytes % 5.7 Eosinophils % 2.3 Basophils % 0.3 Nucleated Red Blood 0.0 Cells % Immature 0.070 H Granulocytes # Neutrophils # 10.9 H Lymphocytes # 1.4 Monocytes # 0.8 Eosinophils # 0.3 Basophils # 0.0 Nucleated Red Blood 0.0 Cells # Erythrocyte 100 H Sedimentation Rate C-Reactive Protein 22.5 H Medications Medication Current Medications IV Flush (NS 3 ml) 3 ml PER PROTOCOL IV ; Start 04/29/18 at 19:00 Acetaminophen/ Hydrocodone Bitart ([place] (5/325)) 2 tab Q6H PRN PO .SEVERE PAIN 7-10 Last administered on 05/01/18 11:42; Admin Dose 2 TAB; Start 04/29/18 at 19:00 Heparin Sodium (Porcine) (Heparin (5000 Units/1ml)) 5,000 unit Q12 SC Last administered on 05/03/18 20:47; Admin Dose 5,000 UNIT; Start 04/29/18 at 21:00 Fluconazole (Diflucan) 200 mg DAILY PO Last administered on 05/04/18 08:34; Admin Dose 200 MG; Start 04/29/18 at 22:00 Ondansetron HCl (Zofran Inj) 4 mg Q4H PRN IV NAUSEA AND/OR VOMITING Last administered on 05/02/18 08:49; Admin Dose 4 MG; Start 04/30/18 at 05:00 Insulin Glargine (Lantus) 16 units DAILY@2000 SC Last administered on 05/03/18 20:44; Admin Dose 16 UNITS; Start 04/30/18 at 20:00 Insulin Aspart (Novolog Insulin Pen) 5 unit WITH MEALS SC Last administered on 05/04/18 12:28; Admin Dose 5 UNIT; Start 04/30/18 at 11:30 Sodium Hypochlorite (Dakin'S (Dilute )) 1 applic DAILY IRR Last administered on 05/01/18 09:00; Admin Dose 1 APPLIC; Start 04/30/18 at 15:00 Albuterol/ Ipratropium (Duoneb) 3 ml Q4H RESP THERAPY PRN HHN SHORTNESS OF BREATH Last administered on 05/01/18 09:37; Admin Dose 3 ML; Start 04/30/18 at 20:00 Pantoprazole (Protonix Iv) 40 mg DAILY@06 IV Last administered on 05/04/18 06:07; Admin Dose 40 MG; Start 05/01/18 at 13:00 Ceftriaxone Sodium 50 ml @ 100 mls/hr Q24H IVPB Last administered on 05/03/18 16:09; Admin Dose 100 MLS/HR; Start 05/02/18 at 17:30 Linezolid (Zyvox) 600 mg BID PO Last administered on 05/04/18 08:34; Admin Dose 600 MG; Start 05/02/18 at 21:00 Docusate Sodium (Colace) 100 mg BID PO Last administered on 05/03/18 20:45; Admin Dose 100 MG; Start 05/02/18 at 21:00 Polyethylene Glycol (Miralax) 17 gm DAILY PO Last administered on 05/03/18 08:00; Admin Dose 17 GM; Start 05/02/18 at 20:30 Metformin HCl (Glucophage) 500 mg BID WITH MEALS PO Last administered on 05/04/18 08:34; Admin Dose 500 MG; Start 05/03/18 at 18:05 Diagnostic Test (Pha) (Accu-Chek) 1 ea AC MEALS AND BEDTIME XX ; Start 05/03/18 at 17:35 Miscellaneous Information 1 ea NOTE XX ; Start 05/03/18 at 14:30 Glucose (Glutose) 15 gm Q15M PRN PO DECREASED GLUCOSE; Start 05/03/18 at 14:30 Glucose (Glutose) 22.5 gm Q15M PRN PO DECREASED GLUCOSE; Start 05/03/18 at 14:30 Dextrose (D50w Syringe) 25 ml Q15M PRN IV DECREASED GLUCOSE; Start 05/03/18 at 14:30 Dextrose (D50w Syringe) 50 ml Q15M PRN IV DECREASED GLUCOSE; Start 05/03/18 at 14:30 Glucagon (Glucagen) 1 mg Q15M PRN IM DECREASED GLUCOSE; Start 05/03/18 at 14:30 Glucose (Glutose) 15 gm Q15M PRN BUCCAL DECREASED GLUCOSE; Start 05/03/18 at 14:30 Insulin Aspart (Novolog Insulin Pen) NOVOLOG *MILD* ALGORI... Q4 SC Last ad ministered on 05/04/18at 12:29; Admin Dose 3 UNIT; Start 05/04/18 at 09:00 KITTY DUMONT NP May 04, 2018 12:59
[2018-05-04 14:40] VITALS: BP 124/65; PULSE 85; RESP 17
[2018-05-04] MEDS: HEPARIN 5,000 UNIT/1 ML VIAL SC SCH ×2 (15:06→20:48)
--- NOTE | 2018-05-04 15:07 | PN ---
Date/Time of Note Date/Time of Note DATE: 05/04/18 TIME: 15:06 Assessment/Plan VTE Prophylaxis Risk score (from Ns)>0 risk: 5 SCD applied (from Ns): Yes Pharmacological prophylaxis: heparin Lines/Catheters IV Catheter Type (from Nrs): Saline Lock Urinary Cath still in place: No Assessment/Plan Hospital Course SUBJECTIVE: Lying in bed. No acute distress. Having low-grade fevers. OBJECTIVE: Vital signs-see below PHYSICAL EXAM: Constitutional: Well-developed, adequately built, lying in bed comfortably. Psych: nl mood/affect, no complaints Head: atraumatic, normocephalic Eyes: nl conjunctiva, nl sclera ENMT: mucosa pink and moist, nl external ears & nose Neck: non-tender, supple Respiratory: clear to auscultation, normal air movement Cardiovascular: nl pulses, regular rate and rhythm Gastrointestinal: non-tender, soft, bowel sounds active in all 4 quadrants. Musculoskeletal/extremities:Right foot covered w/dressing-draiange noted outside. motor strength equal bilaterally, no focal deficit. Normal pulses,no cyanosis, no edema. 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: Alert oriented 3,nl speech, nl strength Skin: nl turgor ASSESSMENT/PLAN: 57-year-old male with diabetes, PAD, who was recently treated with 2 months of antibiotic for left foot osteomyelitis, here with worsening l eft foot infection/OM to have also acute kidney injury. 1.Infected left foot w/Osteomyelitis -management per Podiatry=> patient with no significant improvement, he had completed a full course of IV antibiotic with broad-spectrum agents. He is currently being restarted on all broad-spectrum agents. TMA option discussed, for which patient is not receptive at this time and wanted to treat medically further with long-term IV antibiotics, hyperbaric oxygen therapy as outpatient, wound care... -wc grew polymicrobials=>abx per ID -wound care 2.sepsis 2/2 #1 -treatment as above 3.DMII -Needs more control of sugar. Will increase Lantus and pre-meal insulin. Continue Accu-Cheks and sliding scale. -Diabetic education 4. Dyslipidemia -On statin 5. Peripheral arterial disease. -Plan is LE angiogram on Friday by vascular team. -Continue to optimize neurovascular status with antihypertensives to keep blood pressure ~140/90, diet, nutrition, exercise, blood glucose control -Hold off antiplatelet in light of possible need for further TMA if wound does not improve. 5. Acute kidney injury, secondary to hemodynamics with sepsis -Resolved. Renal function back to normal. DVT prophylaxis: Heparin PUD prophylaxis: Protonix CODE STATUS: Full code Diet: Carbohydrate controlled. Disposition: Continue current management. Follow-up podiatry recommendations. Patient was seen in collaboration with Dr. Walters. Result Diagram: 05/04/18 1105 05/03/18 0527 Results 24hrs Laboratory Tests Test 05/03/18 17:21 05/03/18 18:36 05/03/18 20:42 05/04/18 05:28 Bedside Glucose 362 H 329 H 268 H Erythrocyte 90 H Sedimentation Rate Test 05/04/18 08:06 05/04/18 11:05 05/04/18 12:25 Bedside Glucose 256 H 254 H White Blood Count 13.5 H Red Blood Count 3.15 L Hemoglobin 8.7 L Hematocrit 26.9 L Mean Corpuscular 85.4 Volume Mean Corpuscular 27.6 L Hemoglobin Mean Corpuscular 32.3 Hemoglobin Concent Red Cell 13.2 Distribution Width Platelet Count 327 Mean Platelet Volume 8.9 Immature 0.500 H Granulocytes % Neutrophils % 80.7 H Lymphocytes % 10.5 L Monocytes % 5.7 Eosinophils % 2.3 Basophils % 0.3 Nucleated Red Blood 0.0 Cells % Immature 0.070 H Granulocytes # Neutrophils # 10.9 H Lymphocytes # 1.4 Monocytes # 0.8 Eosinophils # 0.3 Basophils # 0.0 Nucleated Red Blood 0.0 Cells # Erythrocyte 100 H Sedimentation Rate C-Reactive Protein 22.5 H Exam/Review of Systems Exam Vitals Vital Signs Date Temp Pulse Resp B/P (MAP) Pulse Ox O2 O2 Flow FiO2 Time Delivery Rate 05/04/18 98.7 85 17 124/65 97 Room Air 14:40 (84) 05/01/18 8.0 18:09 05/01/18 21 09:39 Intake and Output 05/03/18 05/03/18 05/04/18 1515:00 23:00 07:00 IntakeIntake Total 670 ml 500 ml OutputOutput Total 400 ml 200 ml 1000 ml BalanceBalance -400 ml 470 ml -500 ml Results Results 24hrs Laboratory Tests Test 05/03/18 17:21 05/03/18 18:36 05/03/18 20:42 05/04/18 05:28 Bedside Glucose 362 H 329 H 268 H Erythrocyte 90 H Sedimentation Rate Test 05/04/18 08:06 05/04/18 11:05 05/04/18 12:25 Bedside Glucose 256 H 254 H White Blood Count 13.5 H Red Blood Count 3.15 L Hemoglobin 8.7 L Hematocrit 26.9 L Mean Corpuscular 85.4 Volume Mean Corpuscular 27.6 L Hemoglobin Mean Corpuscular 32.3 Hemoglobin Concent Red Cell 13.2 Distribution Width Platelet Count 327 Mean Platelet Volume 8.9 Immature 0.500 H Granulocytes % Neutrophils % 80.7 H Lymphocytes % 10.5 L Monocytes % 5.7 Eosinophils % 2.3 Basophils % 0.3 Nucleated Red Blood 0.0 Cells % Immature 0.070 H Granulocytes # Neutrophils # 10.9 H Lymphocytes # 1.4 Monocytes # 0.8 Eosinophils # 0.3 Basophils # 0.0 Nucleated Red Blood 0.0 Cells # Erythrocyte 100 H Sedimentation Rate C-Reactive Protein 22.5 H Medications Medication Current Medications IV Flush (NS 3 ml) 3 ml PER PROTOCOL IV ; Start 04/29/18 at 19:00 Acetaminophen/ Hydrocodone Bitart ([place] (5/325)) 2 tab Q6H PRN PO .SEVERE PAIN 7-10 Last administered on 05/01/18 11:42; Admin Dose 2 TAB; Start 04/29/18 at 19:00 Heparin Sodium (Porcine) (Heparin (5000 Units/1ml)) 5,000 unit Q12 SC Last administered on 05/03/18 20:47; Admin Dose 5,000 UNIT; Start 04/29/18 at 21:00 Fluconazole (Diflucan) 200 mg DAILY PO Last administered on 05/04/18 08:34; Admin Dose 200 MG; Start 04/29/18 at 22:00 Ondansetron HCl (Zofran Inj) 4 mg Q4H PRN IV NAUSEA AND/OR VOMITING Last administered on 05/02/18 08:49; Admin Dose 4 MG; Start 04/30/18 at 05:00 Sodium Hypochlorite (Dakin'S (Dilute )) 1 applic DAILY IRR Last administered on 05/01/18 09:00; Admin Dose 1 APPLIC; Start 04/30/18 at 15:00 Albuterol/ Ipratropium (Duoneb) 3 ml Q4H RESP THERAPY PRN HHN SHORTNESS OF BREATH Last administered on 05/01/18at 09:37; Admin Dose 3 ML; Start 04/30/18 at 20:00 Pantoprazole (Protonix Iv) 40 mg DAILY@06 IV Last administered on 05/04/18at 06:07; Admin Dose 40 MG; Start 05/01/18 at 13:00 Ceftriaxone Sodium 50 ml @ 100 mls/hr Q24H IVPB Last administered on 05/03/18at 16:09; Admin Dose 100 MLS/HR; Start 05/02/18 at 17:30 Linezolid (Zyvox) 600 mg BID PO Last administered on 05/04/18at 08:34; Admin Dose 600 MG; Start 05/02/18 at 21:00 Docusate Sodium (Colace) 100 mg BID PO Last administered on 05/03/18at 20:45; Admin Dose 100 MG; Start 05/02/18 at 21:00 Polyethylene Glycol (Miralax) 17 gm DAILY PO Last administered on 05/03/18at 08:00; Admin Dose 17 GM; Start 05/02/18 at 20:30 Metformin HCl (Glucophage) 500 mg BID WITH MEALS PO Last administered on 05/04/18at 08:34; Admin Dose 500 MG; Start 05/03/18 at 18:05 Diagnostic Test (Pha) (Accu-Chek) 1 ea AC MEALS AND BEDTIME XX ; Start 05/03/18 at 17:35 Miscellaneous Information 1 ea NOTE XX ; Start 05/03/18 at 14:30 Glucose (Glutose) 15 gm Q15M PRN PO DECREASED GLUCOSE; Start 05/03/18 at 14:30 Glucose (Glutose) 22.5 gm Q15M PRN PO DECREASED GLUCOSE; Start 05/03/18 at 14:30 Dextrose (D50w Syringe) 25 ml Q15M PRN IV DECREASED GLUCOSE; Start 05/03/18 at 14:30 Dextrose (D50w Syringe) 50 ml Q15M PRN IV DECREASED GLUCOSE; Start 05/03/18 at 14:30 Glucagon (Glucagen) 1 mg Q15M PRN IM DECREASED GLUCOSE; Start 05/03/18 at 14:30 Glucose (Glutose) 15 gm Q15M PRN BUCCAL DECREASED GLUCOSE; Start 05/03/18 at 14:30 Insulin Aspart (Novolog Insulin Pen) NOVOLOG *MILD* ALGORI... Q4 SC Last administered on 05/04/18at 12:29; Admin Dose 3 UNIT; Start 05/04/18 at 09:00 Insulin Aspart (Novolog Insulin Pen) 10 unit WITH MEALS SC ; Start 05/04/18 at 17:35; Status UNV Insulin Glargine (Lantus) 33 units DAILY@2000 SC ; Start 05/04/18 at 20:00; Status LORETTAV ENEDELIA WILKINS NP May 04, 2018 15:07
[2018-05-04] MEDS: ALBUTEROL/IPRATROPIUM (NEB) 3 ML AMP HHN PRN (17:15)
[2018-05-04] MEDS: CEFTRIAXONE 1 GM/50 ML (PMX) 50 ML IVPB SCH (18:13)
[2018-05-04 19:35] VITALS: BP 112/55; PULSE 99; RESP 20
[2018-05-04] MEDS: INSULIN GLARGINE [LANTus] (100 UNITS/ML) SYG SC SCH (20:48)
[2018-05-05] MEDS: INSULIN ASPART [NOVOLOG] 3 ML PEN SC SCH ×9 (01:35→21:00)
[2018-05-05 01:58] VITALS: BP 113/60; PULSE 84; RESP 20
[2018-05-05] MEDS: PANTOPRAZOLE 40 MG INJ IV SCH (06:56)
[2018-05-05] MEDS: ACCU-CHEK XX SCH ×4 (07:30→21:00)
[2018-05-05 08:01] VITALS: BP 119/60; PULSE 82; RESP 19
[2018-05-05] MEDS: ZYVOX 600 MG TAB PO SCH ×2 (08:17→21:10)
[2018-05-05] MEDS: FLUCONAZOLE 200 MG TAB PO SCH (08:17)
[2018-05-05] MEDS: metFORMIN 500 MG TAB PO SCH ×2 (08:17→17:21)
[2018-05-05] MEDS: DOCUSATE SODIUM 100 MG CAP PO SCH ×2 (08:20→21:10)
[2018-05-05] MEDS: POLYETHYLENE GLYCOL 17 GM PACKET PO SCH (08:20)
[2018-05-05] MEDS: HEPARIN 5,000 UNIT/1 ML VIAL SC SCH ×2 (08:20→21:00)
[2018-05-05] MEDS: SODIUM HYPOCHLORITE (1/40) 1 APPLIC BTL IRR SCH (08:24)
--- NOTE | 2018-05-05 08:56 | PN ---
DATE: 05/05/2018 SUBJECTIVE: The patient is stable, no events overnight. OBJECTIVE: VITAL SIGNS: Blood pressure is 119/60, respiration 19, pulse 82, temperature 98.2. HEENT: Head is normocephalic. NECK: Supple. HEART: Regular rate. LUNGS: Show diminished breath sounds at base. ABDOMEN: Soft, nontender to palpation without rebound or guarding. EXTREMITIES: Negative for clubbing, cyanosis, no edema. DERMATOLOGIC: No rashes. MUSCULOSKELETAL: No joint effusion. NEUROLOGIC: No change in exam. MEDICATIONS: The patient's medications have been reviewed. LABORATORY DATA: Has been reviewed. ASSESSMENT AND PLAN: 1. Nonoliguric acute kidney injury with a previous baseline creatinine 1.0 mg/dL. The patient's kay ology of acute kidney injury secondary to hemodynamics, NSAIDs. Renal function returned back to norm al. 2. Metabolic acidosis, resolved. 3. Anemia. Monitor hemoglobin and hematocrit levels. 4. Mineral bone disorder. Monitor calcium and phosphatase levels. 5. Osteomyelitis of the lower extremities. The patient is status post debridement. Continue to mon itor. Follow up with surgery. Continue wound care. 6. Diabetes. Continue current insulin regimen. 7. Electrolyte abnormality improved. We will sign off. Please reconsult as needed. Dictated By: JACQUI DURÁN DO NR/NTS Conf#: [id number] DID#: [id number] CC: TRU LANIER MD;*EndCC*
--- NOTE | 2018-05-05 12:15 | CONS ---
Assessment/Plan Assessment/Plan Assessment/Plan (Daily) Left foot diabetic ulcer Left foot osteomyelitis Left foot cellulitis Left 5th digit gangrene DM2 with peripheral neuropathy ALESSANDRO Plan: Dressings were changed and to be keep clean dry and intact. Intra op cultures showing VRE and pathology showing gangrenous tissue. Previous cultures showing e.coli, enteroccocus species, and corynebacterium. Offload heels with pillows. X-rays and MRI reviewed with noted signs of osteomyelitis. IV abx and antifungal therapy per ID recommendations. Cultures on previous hospitalization showed VRE, e.coli and yuliana albicans. Non invasive arterial studies reviewed and angiogram planned for Friday. Per diesel maintenance technician patient was unable to tolerate complete MRI exam and no sagittal views are available. Discussed with patient possibility of TMA if wounds do not improve. Patient refusing TMA at this time. Discussed further OR debridement Friday05/08/18 Consultation Date/Type/Reason Admit Date/Time Apr 29, 2018 at 18:18 Initial Consult Date Date/Time of Note DATE: 05/05/18 TIME: 12:15 24 HR Interval Summary Free Text/Dictation No acute events overnight. Exam/Review of Systems Exam Vitals Vital Signs Date Temp Pulse Resp B/P (MAP) Pulse Ox O2 O2 Flow FiO2 Time Delivery Rate 05/05/18 98.2 82 19 119/60 94 Room Air 08:01 (79) 05/04/18 21 17:16 05/01/18 8.0 18:09 Intake and Output 05/04/18 05/04/18 05/05/18 1515:00 23:00 07:00 IntakeIntake Total 500 ml 200 ml OutputOutput Total 225 ml 200 ml 400 ml BalanceBalance 275 ml 0 ml -400 ml Exam DP/PT pulses palpable Absent protective sensations Left plantar hallux ulceration mixed fibrotic and granular wound base 4 x 2 x 1.5cm which probes to bone and communicates with dorsal hallux ulceration site 2 x 1 x 1.5cm. There is surrounding erythema and maceration noted to the forefoot area. Purulent drainage appreciated to the left hallux ulceration sites There are ulcerations between the lesser digits on the medial and lateral aspects of digits 2-4 mixed fibrotic and granular wound base 0.2 x 0.2 x 0.2cm and interdigital maceration appreciated. There is dry gangrene to left 5th digit with maceration noted. Muscle strength 5/5 in all compartments of the foot. Foot X-ray IMPRESSION: Findings consistent with osteomyelitis at the great toe proximal and distal phalanges, the second proximal phalanx and distal metatarsal, and possibly the third proximal phalanx and distal metatarsal. Non invasive arterial studies IMPRESSION: No evidence of a significant arterial stenosis in the right lower extremity. Change from triphasic to monophasic waveforms in the left popliteal artery consistent with a significant stenosis between the distal left superficial femoral artery and popliteal artery. Pathology Left foot tissue: -- Gangrenous necrosis of skin and subcutaneous tissue. -- No bone is microscopically identified. -- There is no evidence of malignancy. Results Result Diagram: 05/05/18 0548 05/05/18 0548 Results 24hrs Laboratory Tests Test 05/04/18 12:25 05/04/18 17:40 05/04/18 20:39 05/05/18 01:30 Bedside Glucose 254 H 274 H 258 H 203 Test 05/05/18 05:45 05/05/18 05:48 05/05/18 06:53 05/05/18 08:11 Erythrocyte 109 H Sedimentation Rate C-Reactive Protein 20.6 H White Blood Count 10.7 # Red Blood Count 3.19 L Hemoglobin 8.9 L Hematocrit 27.4 L Mean Corpuscular 85.9 Volume Mean Corpuscular 27.9 L Hemoglobin Mean Corpuscular 32.5 Hemoglobin Concent Red Cell 13.1 Distribution Width Platelet Count 349 Mean Platelet Volume 8.9 Immature 0.700 H Granulocytes % Neutrophils % 70.7 Lymphocytes % 19.1 Monocytes % 5.6 Eosinophils % 3.4 Basophils % 0.5 Nucleated Red Blood 0.0 Cells % Immature 0.070 H Granulocytes # Neutrophils # 7.6 H Lymphocytes # 2.0 Monocytes # 0.6 Eosinophils # 0.4 Basophils # 0.1 Nucleated Red Blood 0.0 Cells # Sodium Level 137 Potassium Level 3.8 Chloride Level 103 Carbon Dioxide Level 21 Anion Gap 13 Blood Urea Nitrogen 19 Creatinine 0.94 Est Glomerular > 60 Filtrat Rate mL/min Glucose Level 189 Calcium Level 8.9 Phosphorus Level 2.8 Magnesium Level 1.9 Bedside Glucose 186 186 Medications Medication Current Medications IV Flush (NS 3 ml) 3 ml PER PROTOCOL IV ; Start 04/29/18 at 19:00 Acetaminophen/ Hydrocodone Bitart ([place] (5/325)) 2 tab Q6H PRN PO .SEVERE PAIN 7-10 Last administered on 05/01/18 11:42; Admin Dose 2 TAB; Start 04/29/18 at 19:00 Heparin Sodium (Porcine) (Heparin (5000 Units/1ml)) 5,000 unit Q12 SC Last administered on 05/05/18 08:20; Admin Dose 5,000 UNIT; Start 04/29/18 at 21:00 Fluconazole (Diflucan) 200 mg DAILY PO Last administered on 05/05/18 08:17; Admin Dose 200 MG; Start 04/29/18 at 22:00 Ondansetron HCl (Zofran Inj) 4 mg Q4H PRN IV NAUSEA AND/OR VOMITING Last administered on 05/02/18 08:49; Admin Dose 4 MG; Start 04/30/18 at 05:00 Sodium Hypochlorite (Dakin'S (Dilute )) 1 applic DAILY IRR Last administered on 05/05/18 08:24; Admin Dose 1 APPLIC; Start 04/30/18 at 15:00 Albuterol/ Ipratropium (Duoneb) 3 ml Q4H RESP THERAPY PRN HHN SHORTNESS OF BREATH Last administered on 05/04/18 17:15; Admin Dose 3 ML; Start 04/30/18 at 20:00 Pantoprazole (Protonix Iv) 40 mg DAILY@06 IV Last administered on 05/05/18 06:56; Admin Dose 40 MG; Start 05/01/18 at 13:00 Ceftriaxone Sodium 50 ml @ 100 mls/hr Q24H IVPB Last administered on 05/04/18 18:13; Admin Dose 100 MLS/HR; Start 05/02/18 at 17:30 Linezolid (Zyvox) 600 mg BID PO Last administered on 05/05/18 08:17; Admin Dose 600 MG; Start 05/02/18 at 21:00 Docusate Sodium (Colace) 100 mg BID PO Last administered on 05/04/18 20:42; Admin Dose 100 MG; Start 05/02/18 at 21:00 Polyethylene Glycol (Miralax) 17 gm DAILY PO Last administered on 05/03/18 08:00; Admin Dose 17 GM; Start 05/02/18 at 20:30 Metformin HCl (Glucophage) 500 mg BID WITH MEALS PO Last administered on 05/05/18at 08:17; Admin Dose 500 MG; Start 05/03/18 at 18:05 Diagnostic Test (Pha) (Accu-Chek) 1 ea AC MEALS AND BEDTIME XX ; Start 05/03/18 at 17:35 Miscellaneous Information 1 ea NOTE XX ; Start 05/03/18 at 14:30 Glucose (Glutose) 15 gm Q15M PRN PO DECREASED GLUCOSE; Start 05/03/18 at 14:30 Glucose (Glutose) 22.5 gm Q15M PRN PO DECREASED GLUCOSE; Start 05/03/18 at 14:30 Dextrose (D50w Syringe) 25 ml Q15M PRN IV DECREASED GLUCOSE; Start 05/03/18 at 14:30 Dextrose (D50w Syringe) 50 ml Q15M PRN IV DECREASED GLUCOSE; Start 05/03/18 at 14:30 Glucagon (Glucagen) 1 mg Q15M PRN IM DECREASED GLUCOSE; Start 05/03/18 at 14:30 Glucose (Glutose) 15 gm Q15M PRN BUCCAL DECREASED GLUCOSE; Start 05/03/18 at 14:30 Insulin Aspart (Novolog Insulin Pen) 10 unit WITH MEALS SC Last administered on 05/05/18at 08:19; Admin Dose 10 UNIT; Start 05/04/18 at 17:35 Insulin Glargine (Lantus) 33 units DAILY@2000 SC Last administered on 05/04/18at 20:48; Admin Dose 33 UNITS; Start 05/04/18 at 20:00 Diagnostic Test (Pha) (Accu-Chek) 1 ea 02 XX ; Start 05/06/18 at 02:00 Insulin Aspart (Novolog Insulin Pen) NOVOLOG *MILD* ALGORITHM WITH MEALS BEDTIM E SC ; Start 05/05/18 at 12:00 NIMISHA HENNING DPM May 05, 2018 12:15
--- NOTE | 2018-05-05 13:06 | CONS ---
Assessment/Plan Assessment/Plan Hospital Course (Demo Recall) No events, looks comfortable, no fevers Microbiology: Left foot wound culture growing VRE resistant to ampicillin, E. coli and Corynebacterium species Antimicrobials: Zyvox Rocephin fluconazole PHYSICAL EXAMINATION: GENERAL: This is a well-developed, well-nourished, middle-aged man who is awake, in no distress. HEENT: Head is atraumatic, normocephalic. NECK: Supple. CHEST: Rise symmetrical. Breath sounds diminished to bases. HEART: S1, S2. ABDOMEN: Soft. Bowel tones are present. EXTREMITIES: With left foot dressing intact. Assessment: 1. 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 Diabetes 3. Obesity 4. Acute possibly on chronic kidney disease Plan: Remains stable, daptomycin was discontinued secondary to elevated CK, continue local wound care per podiatry recommendations. Patient will require 6-8 weeks of current abx DW Dr [place] Consultation Date/Type/Reason Admit Date/Time Apr 29, 2018 at 18:18 Initial Consult Date Type of Consult id Date/Time of Note DATE: 05/05/18 TIME: 13:05 Exam/Review of Systems Exam Vitals Vital Signs Date Temp Pulse Resp B/P (MAP) Pulse Ox O2 O2 Flow FiO2 Time Delivery Rate 05/05/18 98.2 82 19 119/60 94 Room Air 08:01 (79) 05/04/18 21 17:16 05/01/18 8.0 18:09 Intake and Output 05/04/18 05/04/18 05/05/18 1515:00 23:00 07:00 IntakeIntake Total 500 ml 200 ml OutputOutput Total 225 ml 200 ml 400 ml BalanceBalance 275 ml 0 ml -400 ml Results Result Diagram: 05/05/18 0548 05/05/18 0548 Results 24hrs Laboratory Tests Test 05/04/18 17:40 05/04/18 20:39 05/05/18 01:30 05/05/18 05:45 Bedside Glucose 274 H 258 H 203 Erythrocyte 109 H Sedimentation Rate C-Reactive Protein 20.6 H Test 05/05/18 05:48 05/05/18 06:53 05/05/18 08:11 05/05/18 12:17 White Blood Count 10.7 # Red Blood Count 3.19 L Hemoglobin 8.9 L Hematocrit 27.4 L Mean Corpuscular 85.9 Volume Mean Corpuscular 27.9 L Hemoglobin Mean Corpuscular 32.5 Hemoglobin Concent Red Cell 13.1 Distribution Width Platelet Count 349 Mean Platelet Volume 8.9 Immature 0.700 H Granulocytes % Neutrophils % 70.7 Lymphocytes % 19.1 Monocytes % 5.6 Eosinophils % 3.4 Basophils % 0.5 Nucleated Red Blood 0.0 Cells % Immature 0.070 H Granulocytes # Neutrophils # 7.6 H Lymphocytes # 2.0 Monocytes # 0.6 Eosinophils # 0.4 Basophils # 0.1 Nucleated Red Blood 0.0 Cells # Sodium Level 137 Potassium Level 3.8 Chloride Level 103 Carbon Dioxide Level 21 Anion Gap 13 Blood Urea Nitrogen 19 Creatinine 0.94 Est Glomerular > 60 Filtrat Rate mL/min Glucose Level 189 Calcium Level 8.9 Phosphorus Level 2.8 Magnesium Level 1.9 Bedside Glucose 186 186 183 Medications Medication Current Medications IV Flush (NS 3 ml) 3 ml PER PROTOCOL IV ; Start 04/29/18 at 19:00 Acetaminophen/ Hydrocodone Bitart ([place] (5/325)) 2 tab Q6H PRN PO .SEVERE PAIN 7-10 Last administered on 05/01/18 11:42; Admin Dose 2 TAB; Start 04/29/18 at 19:00 Heparin Sodium (Porcine) (Heparin (5000 Units/1ml)) 5,000 unit Q12 SC Last ad ministered on 05/05/18 08:20; Admin Dose 5,000 UNIT; Start 04/29/18 at 21:00 Fluconazole (Diflucan) 200 mg DAILY PO Last administered on 05/05/18 08:17; Admin Dose 200 MG; Start 04/29/18 at 22:00 Ondansetron HCl (Zofran Inj) 4 mg Q4H PRN IV NAUSEA AND/OR VOMITING Last administered on 05/02/18 08:49; Admin Dose 4 MG; Start 04/30/18 at 05:00 Sodium Hypochlorite (Dakin'S (Dilute )) 1 applic DAILY IRR Last administered on 05/05/18 08:24; Admin Dose 1 APPLIC; Start 04/30/18 at 15:00 Albuterol/ Ipratropium (Duoneb) 3 ml Q4H RESP THERAPY PRN HHN SHORTNESS OF BREATH Last administered on 05/04/18at 17:15; Admin Dose 3 ML; Start 04/30/18 at 20:00 Pantoprazole (Protonix Iv) 40 mg DAILY@06 IV Last administered on 05/05/18at 06:56; Admin Dose 40 MG; Start 05/01/18 at 13:00 Ceftriaxone Sodium 50 ml @ 100 mls/hr Q24H IVPB Last administered on 05/04/18at 18:13; Admin Dose 100 MLS/HR; Start 05/02/18 at 17:30 Linezolid (Zyvox) 600 mg BID PO Last administered on 05/05/18at 08:17; Admin Dose 600 MG; Start 05/02/18 at 21:00 Docusate Sodium (Colace) 100 mg BID PO Last administered on 05/04/18at 20:42; Admin Dose 100 MG; Start 05/02/18 at 21:00 Polyethylene Glycol (Miralax) 17 gm DAILY PO Last administered on 05/03/18at 08:00; Admin Dose 17 GM; Start 05/02/18 at 20:30 Metformin HCl (Glucophage) 500 mg BID WITH MEALS PO Last administered on 05/05/18at 08:17; Admin Dose 500 MG; Start 05/03/18 at 18:05 Diagnostic Test (Pha) (Accu-Chek) 1 ea AC MEALS AND BEDTIME XX ; Start 05/03/18 at 17:35 Miscellaneous Information 1 ea NOTE XX ; Start 05/03/18 at 14:30 Glucose (Glutose) 15 gm Q15M PRN PO DECREASED GLUCOSE; Start 05/03/18 at 14:30 Glucose (Glutose) 22.5 gm Q15M PRN PO DECREASED GLUCOSE; Start 05/03/18 at 14:30 Dextrose (D50w Syringe) 25 ml Q15M PRN IV DECREASED GLUCOSE; Start 05/03/18 at 14:30 Dextrose (D50w Syringe) 50 ml Q15M PRN IV DECREASED GLUCOSE; Start 05/03/18 at 14:30 Glucagon (Glucagen) 1 mg Q15M PRN IM DECREASED GLUCOSE; Start 05/03/18 at 14:30 Glucose (Glutose) 15 gm Q15M PRN BUCCAL DECREASED GLUCOSE; Start 05/03/18 at 14:30 Insulin Aspart (Novolog Insulin Pen) 10 unit WITH MEALS SC Last administered on 05/05/18at 12:19; Admin Dose 10 UNIT; Start 05/04/18 at 17:35 Insulin Glargine (Lantus) 33 units DAILY@2000 SC Last administered on 05/04/18at 20:48; Admin Dose 33 UNITS; Start 05/04/18 at 20:00 Diagnostic Test (Pha) (Accu-Chek) 1 ea 02 XX ; Start 05/06/18 at 02:00 Insulin Aspart (Novolog Insulin Pen) NOVOLOG *MILD* ALGORITHM WITH MEALS BEDTIME SC Last administered on 05/05/18at 12:20; Admin Dose 2 UNIT; Start 05/05/18 at 12:00 KITTY DUMONT NP May 05, 2018 13:06
[2018-05-05 14:00] VITALS: BP 107/60; PULSE 89; RESP 18
--- NOTE | 2018-05-05 16:30 | PN ---
Date/Time of Note Date/Time of Note DATE: 05/05/18 TIME: 16:22 Assessment/Plan VTE Prophylaxis Risk score (from Ns)>0 risk: 6 SCD applied (from Ns): Yes Pharmacological prophylaxis: heparin Lines/Catheters IV Catheter Type (from Nrsg): Saline Lock Urinary Cath still in place: No Assessment/Plan Assessment/Plan 1. Left foot infection with osteomyelitis, s/p debridement, continue wound care and keep antibiotics(rocephin, zyvox and diflucan) for 6-8 weeks per ID 2. PVD, angiography tomorrow 3. Nonoliguric acute kidney injury, resolved 4. Hyperchloremic metabolic acidosis. resolved 5. Diabetes. Continue current insulin regimen. 6. Dyslipidemia, on statin 7. DVT prophylaxis: heparin Result Diagram: 05/05/18 0548 05/05/18 0548 Results 24hrs Laboratory Tests Test 05/04/18 17:40 05/04/18 20:39 05/05/18 01:30 05/05/18 05:45 Bedside Glucose 274 H 258 H 203 Erythrocyte 109 H Sedimentation Rate C-Reactive Protein 20.6 H Test 05/05/18 05:48 05/05/18 06:53 05/05/18 08:11 05/05/18 12:17 White Blood Count 10.7 # Red Blood Count 3.19 L Hemoglobin 8.9 L Hematocrit 27.4 L Mean Corpuscular 85.9 Volume Mean Corpuscular 27.9 L Hemoglobin Mean Corpuscular 32.5 Hemoglobin Concent Red Cell 13.1 Distribution Width Platelet Count 349 Mean Platelet Volume 8.9 Immature 0.700 H Granulocytes % Neutrophils % 70.7 Lymphocytes % 19.1 Monocytes % 5.6 Eosinophils % 3.4 Basophils % 0.5 Nucleated Red Blood 0.0 Cells % Immature 0.070 H Granulocytes # Neutrophils # 7.6 H Lymphocytes # 2.0 Monocytes # 0.6 Eosinophils # 0.4 Basophils # 0.1 Nucleated Red Blood 0.0 Cells # Sodium Level 137 Potassium Level 3.8 Chloride Level 103 Carbon Dioxide Level 21 Anion Gap 13 Blood Urea Nitrogen 19 Creatinine 0.94 Est Glomerular > 60 Filtrat Rate mL/min Glucose Level 189 Calcium Level 8.9 Phosphorus Level 2.8 Magnesium Level 1.9 Bedside Glucose 186 186 183 Subjective 24 Hr Interval Summary Free Text/Dictation pain is controlled no fever Exam/Review of Systems Exam Vitals Vital Signs Date Temp Pulse Resp B/P (MAP) Pulse Ox O2 O2 Flow FiO2 Time Delivery Rate 05/05/18 98.0 89 18 107/60 95 Room Air 14:00 (76) 05/04/18 21 17:16 05/01/18 8.0 18:09 Intake and Output 05/04/18 05/04/18 05/05/18 1515:00 23:00 07:00 IntakeIntake Total 500 ml 200 ml OutputOutput Total 225 ml 200 ml 400 ml BalanceBalance 275 ml 0 ml -400 ml Constitutional: alert, oriented, well developed, obese Psych: no complaints, nl mood/affect Head: normocephalic, atraumatic Eyes: nl conjunctiva, EOMI, nl lids, PERRL ENMT: nl external ears & nose, nl lips & teeth, nl nasal mucosa & septum Neck: supple, non-tender Respiratory: clear to auscultation, normal air movement; No congested cough, No crackles/rales, No diminished breath sounds, No intercostal retraction, No labored breathing, No respirations, No tactile fremitus, No wheezing, No other Cardiovascular: regular rate and rhythm, nl pulses; No bruits, No diastolic murmur, No edema, No gallop, No irregular rhythm, No jugular venous distention (JVD), No murmurs/extra sounds, No rub, No systolic murmur, No S3, No S4, No other Gastrointestinal: soft, nl liver, spleen, non-tender Extremities: other (left foot wound) 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-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, nl mental status, nl speech, nl strength Results Results 24hrs Laboratory Tests Test 05/04/18 17:40 05/04/18 20:39 05/05/18 01:30 05/05/18 05:45 Bedside Glucose 274 H 258 H 203 Erythrocyte 109 H Sedimentation Rate C-Reactive Protein 20.6 H Test 05/05/18 05:48 05/05/18 06:53 05/05/18 08:11 05/05/18 12:17 White Blood Count 10.7 # Red Blood Count 3.19 L Hemoglobin 8.9 L Hematocrit 27.4 L Mean Corpuscular 85.9 Volume Mean Corpuscular 27.9 L Hemoglobin Mean Corpuscular 32.5 Hemoglobin Concent Red Cell 13.1 Distribution Width Platelet Count 349 Mean Platelet Volume 8.9 Immature 0.700 H Granulocytes % Neutrophils % 70.7 Lymphocytes % 19.1 Monocytes % 5.6 Eosinophils % 3.4 Basophils % 0.5 Nucleated Red Blood 0.0 Cells % Immature 0.070 H Granulocytes # Neutrophils # 7.6 H Lymphocytes # 2.0 Monocytes # 0.6 Eosinophils # 0.4 Basophils # 0.1 Nucleated Red Blood 0.0 Cells # Sodium Level 137 Potassium Level 3.8 Chloride Level 103 Carbon Dioxide Level 21 Anion Gap 13 Blood Urea Nitrogen 19 Creatinine 0.94 Est Glomerular > 60 Filtrat Rate mL/min Glucose Level 189 Calcium Level 8.9 Phosphorus Level 2.8 Magnesium Level 1.9 Bedside Glucose 186 186 183 Medications Medication Current Medications IV Flush (NS 3 ml) 3 ml PER PROTOCOL IV ; Start 04/29/18 at 19:00 Acetaminophen/ Hydrocodone Bitart ([place] (5/325)) 2 tab Q6H PRN PO .SEVERE PAIN 7-10 Last administered on 05/01/18 11:42; Admin Dose 2 TAB; Start 04/29/18 at 19:00 Heparin Sodium (Porcine) (Heparin (5000 Units/1ml)) 5,000 unit Q12 SC Last ad ministered on 05/05/18 08:20; Admin Dose 5,000 UNIT; Start 04/29/18 at 21:00 Fluconazole (Diflucan) 200 mg DAILY PO Last administered on 05/05/18 08:17; Admin Dose 200 MG; Start 04/29/18 at 22:00 Ondansetron HCl (Zofran Inj) 4 mg Q4H PRN IV NAUSEA AND/OR VOMITING Last administered on 05/02/18 08:49; Admin Dose 4 MG; Start 04/30/18 at 05:00 Sodium Hypochlorite (Dakin'S (Dilute )) 1 applic DAILY IRR Last administered on 05/05/18 08:24; Admin Dose 1 APPLIC; Start 04/30/18 at 15:00 Albuterol/ Ipratropium (Duoneb) 3 ml Q4H RESP THERAPY PRN HHN SHORTNESS OF BREATH Last administered on 05/04/18 17:15; Admin Dose 3 ML; Start 04/30/18 at 20:00 Pantoprazole (Protonix Iv) 40 mg DAILY@06 IV Last administered on 05/05/18at 06:56; Admin Dose 40 MG; Start 05/01/18 at 13:00 Ceftriaxone Sodium 50 ml @ 100 mls/hr Q24H IVPB Last administered on 05/04/18at 18:13; Admin Dose 100 MLS/HR; Start 05/02/18 at 17:30 Linezolid (Zyvox) 600 mg BID PO Last administered on 05/05/18at 08:17; Admin Dose 600 MG; Start 05/02/18 at 21:00 Docusate Sodium (Colace) 100 mg BID PO Last administered on 05/04/18at 20:42; Admin Dose 100 MG; Start 05/02/18 at 21:00 Polyethylene Glycol (Miralax) 17 gm DAILY PO Last administered on 05/03/18at 08:00; Admin Dose 17 GM; Start 05/02/18 at 20:30 Metformin HCl (Glucophage) 500 mg BID WITH MEALS PO Last administered on 05/05/18at 08:17; Admin Dose 500 MG; Start 05/03/18 at 18:05 Diagnostic Test (Pha) (Accu-Chek) 1 ea AC MEALS AND BEDTIME XX ; Start 05/03/18 at 17:35 Miscellaneous Information 1 ea NOTE XX ; Start 05/03/18 at 14:30 Glucose (Glutose) 15 gm Q15M PRN PO DECREASED GLUCOSE; Start 05/03/18 at 14:30 Glucose (Glutose) 22.5 gm Q15M PRN PO DECREASED GLUCOSE; Start 05/03/18 at 14:30 Dextrose (D50w Syringe) 25 ml Q15M PRN IV DECREASED GLUCOSE; Start 05/03/18 at 14:30 Dextrose (D50w Syringe) 50 ml Q15M PRN IV DECREASED GLUCOSE; Start 05/03/18 at 14:30 Glucagon (Glucagen) 1 mg Q15M PRN IM DECREASED GLUCOSE; Start 05/03/18 at 14:30 Glucose (Glutose) 15 gm Q15M PRN BUCCAL DECREASED GLUCOSE; Start 05/03/18 at 14:30 Insulin Aspart (Novolog Insulin Pen) 10 unit WITH MEALS SC Last administered on 05/05/18at 12:19; Admin Dose 10 UNIT; Start 05/04/18 at 17:35 Insulin Glargine (Lantus) 33 units DAILY@2000 SC Last administered on 05/04/18at 20:48; Admin Dose 33 UNITS; Start 05/04/18 at 20:00 Diagnostic Test (Pha) (Accu-Chek) 1 ea 02 XX ; Start 05/06/18 at 02:00 Insulin Aspart (Novolog Insulin Pen) NOVOLOG *MILD* ALGORITHM WITH MEALS BEDTIME SC Last administered on 05/05/18at 12:20; Admin Dose 2 UNIT; Start 05/05/18 at 12:00 KATHERINE DYER MD May 05, 2018 16:30
[2018-05-05] MEDS: CEFTRIAXONE 1 GM/50 ML (PMX) 50 ML IVPB SCH (17:20)
[2018-05-05 19:34] VITALS: BP 95/54; PULSE 85; RESP 18
[2018-05-05] MEDS: INSULIN GLARGINE [LANTus] (100 UNITS/ML) SYG SC SCH (21:14)
[2018-05-06] VITALS (11 sets, daily range): BP systolic 101–113; BP diastolic 50–72; PULSE 72–80; RESP 13–20
[2018-05-06] MEDS: ONDANSETRON 4 MG INJ IV PRN (00:37)
[2018-05-06] MEDS: INSULIN ASPART [NOVOLOG] 3 ML PEN SC SCH ×9 (01:47→21:00)
[2018-05-06] MEDS ORDERED: ACCU-CHEK XX SCH (02:00)
[2018-05-06] MEDS: PANTOPRAZOLE 40 MG INJ IV SCH (05:59)
[2018-05-06] MEDS: metFORMIN 500 MG TAB PO SCH ×2 (08:00→17:38)
[2018-05-06] MEDS: ACCU-CHEK XX SCH ×4 (08:06→21:00)
[2018-05-06] MEDS: ZYVOX 600 MG TAB PO SCH ×2 (08:07→21:42)
[2018-05-06] MEDS: FLUCONAZOLE 200 MG TAB PO SCH (08:07)
[2018-05-06] MEDS: DOCUSATE SODIUM 100 MG CAP PO SCH ×2 (08:07→21:42)
[2018-05-06] MEDS: POLYETHYLENE GLYCOL 17 GM PACKET PO SCH (08:07)
[2018-05-06] MEDS: HEPARIN 5,000 UNIT/1 ML VIAL SC SCH ×2 (08:08→21:42)
[2018-05-06] MEDS ORDERED: IODIXANOL LOCM 100 ML BTL ONE (12:35)
[2018-05-06] MEDS ORDERED: LIDOCAINE 1% (MDV) 20 ML INJ ONE (12:35)
[2018-05-06] MEDS ORDERED: SOD CHLORIDE 0.9% 500 ML ONE (12:36)
[2018-05-06] MEDS ORDERED: FENTAnyl 50 MCG/ML VIAL ONE (12:36)
[2018-05-06] MEDS ORDERED: MIDAZOLAM 1 MG/ML 2 ML INJ ONE (12:36)
--- NOTE | 2018-05-06 13:00 | SIPON ---
Date/Time of Note Date/Time of Note DATE: 05/06/18 TIME: 12:59 Operative Report Preoperative Diagnosis L foot gangrene Postoperative Diagnosis same Operation/Procedure Performed aortogram, LLE runoff - normal study with 3 vessel runoff into the foot Surgeon see signature line assisted living assistant none Anesthesia: moderate sedation Estimated blood loss: minimal Transfusion Required none Specimen none Grafts/Implants none Complications none ALEX ROE MD May 06, 2018 13:00
--- NOTE | 2018-05-06 13:29 | PN ---
Date/Time of Note Date/Time of Note DATE: 05/06/18 TIME: 13:27 Assessment/Plan VTE Prophylaxis Risk score (from Ns)>0 risk: 5 SCD applied (from Ns): Yes Pharmacological prophylaxis: heparin Lines/Catheters IV Catheter Type (from Nrsg): Saline Lock Urinary Cath still in place: No Assessment/Plan Assessment/Plan 1. Left foot infection with osteomyelitis, s/p debridement, continue wound care and keep antibiotics(rocephin, zyvox and diflucan) for 6-8 weeks per ID 2. PVD, s/p angiography, ?normal 3. Nonoliguric acute kidney injury, resolved 4. Hyperchloremic metabolic acidosis. resolved 5. Diabetes. Continue current insulin regimen. 6. Dyslipidemia, on statin 7. DVT prophylaxis: heparin 8. Case management for D/C planning Result Diagram: 05/05/1848 05/05/1848 Results 24hrs Laboratory Tests Test 05/05/18 17:19 05/05/18 21:09 05/06/18 00:39 05/06/18 01:46 Bedside Glucose 211 135 176 210 Test 05/06/18 05:55 05/06/18 08:05 05/06/18 11:32 Bedside Glucose 156 163 Erythrocyte 90 H Sedimentation Rate C-Reactive Protein 15.8 H Subjective 24 Hr Interval Summary Free Text/Dictation pain is controlled, afebrile Exam/Review of Systems Exam Vitals Vital Signs Date Temp Pulse Resp B/P (MAP) Pulse Ox O2 O2 Flow FiO2 Time Delivery Rate 05/06/18 98.2 78 18 101/56 92 Room Air 07:45 (71) 05/04/18 21 17:16 Intake and Output 05/05/18 05/05/18 05/06/18 1515:00 23:00 07:00 IntakeIntake Total 1150 ml OutputOutput Total 350 ml 1150 ml 201 ml BalanceBalance -350 ml 0 ml -201 ml Constitutional: alert, oriented, well developed Psych: no complaints, nl mood/affect Head: normocephalic, atraumatic Eyes: nl conjunctiva, EOMI, nl lids, PERRL ENMT: nl external ears & nose, nl lips & teeth, nl nasal mucosa & septum Neck: supple, non-tender Respiratory: clear to auscultation, normal air movement; No congested cough, No crackles/rales, No diminished breath sounds, No intercostal retraction, No labored breathing, No respirations, No tactile fremitus, No wheezing, No other Cardiovascular: regular rate and rhythm, nl pulses; No bruits, No diastolic murmur, No edema, No gallop, No irregular rhythm, No jugular venous distention (JVD), No murmurs/extra sounds, No rub, No systolic murmur, No S3, No S4, No other Gastrointestinal: soft, nl liver, spleen, non-tender Extremities: other (left foot wound) 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: 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 DIRECTOR 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-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, nl mental status, nl speech, nl strength Results Results 24hrs Laboratory Tests Test 05/05/18 17:19 05/05/18 21:09 05/06/18 00:39 05/06/18 01:46 Bedside Glucose 211 135 176 210 Test 05/06/18 05:55 05/06/18 08:05 05/06/18 11:32 Bedside Glucose 156 163 Erythrocyte 90 H Sedimentation Rate C-Reactive Protein 15.8 H Medications Medication Current Medications IV Flush (NS 3 ml) 3 ml PER PROTOCOL IV ; Start 04/29/18 at 19:00 Acetaminophen/ Hydrocodone Bitart ([place] (5/325)) 2 tab Q6H PRN PO .SEVERE PAIN 7-10 Last administered on 05/01/18 11:42; Admin Dose 2 TAB; Start 04/29/18 at 19:00 Heparin Sodium (Porcine) (Heparin (5000 Units/1ml)) 5,000 unit Q12 SC Last administered on 05/05/18 08:20; Admin Dose 5,000 UNIT; Start 04/29/18 at 21:00 Fluconazole (Diflucan) 200 mg DAILY PO Last administered on 05/05/18 08:17; Admin Dose 200 MG; Start 04/29/18 at 22:00 Ondansetron HCl (Zofran Inj) 4 mg Q4H PRN IV NAUSEA AND/OR VOMITING Last administered on 05/06/18 00:37; Admin Dose 4 MG; Start 04/30/18 at 05:00 Sodium Hypochlorite (Dakin'S (Dilute 1/40)) 1 applic DAILY IRR Last administered on 05/05/18 08:24; Admin Dose 1 APPLIC; Start 04/30/18 at 15:00 Albuterol/ Ipratropium (Duoneb) 3 ml Q4H RESP THERAPY PRN HHN SHORTNESS OF BREATH Last administered on 05/04/18 17:15; Admin Dose 3 ML; Start 04/30/18 at 20:00 Pantoprazole (Protonix Iv) 40 mg DAILY@06 IV Last administered on 05/06/18 05:59; Admin Dose 40 MG; Start 05/01/18 at 13:00 Ceftriaxone Sodium 50 ml @ 100 mls/hr Q24H IVPB Last administered on 05/05/18 17:20; Admin Dose 100 MLS/HR; Start 05/02/18 at 17:30 Linezolid (Zyvox) 600 mg BID PO Last administered on 05/05/18 21:10; Admin Dose 600 MG; Start 05/02/18 at 21:00 Docusate Sodium (Colace) 100 mg BID PO Last administered on 05/05/18 21:10; Admin Dose 100 MG; Start 05/02/18 at 21:00 Polyethylene Glycol (Miralax) 17 gm DAILY PO Last administered on 05/03/18 08:00; Admin Dose 17 GM; Start 05/02/18 at 20:30 Metformin HCl (Glucophage) 500 mg BID WITH MEALS PO Last administered on 05/05/18 17:21; Admin Dose 500 MG; Start 05/03/18 at 18:05 Diagnostic Test (Pha) (Accu-Chek) 1 ea AC MEALS AND BEDTIME XX Last administered on 05/06/18 08:06; Admin Dose 1 EA; Start 05/03/18 at 17:35 Miscellaneous Information 1 ea NOTE XX ; Start 05/03/18 at 14:30 Glucose (Glutose) 15 gm Q15M PRN PO DECREASED GLUCOSE; Start 05/03/18 at 14:30 Glucose (Glutose) 22.5 gm Q15M PRN PO DECREASED GLUCOSE; Start 05/03/18 at 14:30 Dextrose (D50w Syringe) 25 ml Q15M PRN IV DECREASED GLUCOSE; Start 05/03/18 at 14:30 Dextrose (D50w Syringe) 50 ml Q15M PRN IV DECREASED GLUCOSE; Start 05/03/18 at 14:30 Glucagon (Glucagen) 1 mg Q15M PRN IM DECREASED GLUCOSE; Start 05/03/18 at 14:30 Glucose (Glutose) 15 gm Q15M PRN BUCCAL DECREASED GLUCOSE; Start 05/03/18 at 14:30 Insulin Aspart (Novolog Insulin Pen) 10 unit WITH MEALS SC Last administered on 05/05/18at 17:26; Admin Dose 10 UNIT; Start 05/04/18 at 17:35 Insulin Glargine (Lantus) 33 units DAILY@2000 SC Last administered on 05/05/18at 21:14; Admin Dose 33 UNITS; Start 05/04/18 at 20:00 Insulin Aspart (Novolog Insulin Pen) NOVOLOG *MILD* ALGORI... Q4 SC Last admi nistered on 05/06/18at 08:14; Admin Dose 1 UNIT; Start 05/06/18 at 01:00 KATHERINE DYER MD May 06, 2018 13:29
--- NOTE | 2018-05-06 14:09 | CONS ---
Assessment/Plan Assessment/Plan Hospital Course (Demo Recall) No acute changes overnight patient looks comfortable afebrile no labs today CRP this morning elevated at 15.8 Wound culture grew VRE E. coli Corynebacterium species and Bacteroides fragilis Antimicrobials: Zyvox Rocephin, fluconazole PHYSICAL EXAMINATION: GENERAL: This is a well-developed, well-nourished, middle-aged man who is awake, in no distress. HEENT: Head is atraumatic, normocephalic. NECK: Supple. CHEST: Rise symmetrical. Breath sounds diminished to bases. HEART: S1, S2. ABDOMEN: Soft. Bowel tones are present. EXTREMITIES: With left foot dressing intact. Assessment: 1. 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 Diabetes 3. Obesity 4. Acute possibly on chronic kidney disease Plan: Remains stable, daptomycin was discontinued secondary to elevated CK, but will add Flagyl to cover anaerobes, continue local wound care per podiatry recommendations. Patient will require 6-8 weeks of current abx Consultation Date/Type/Reason Admit Date/Time Apr 29, 2018 at 18:18 Initial Consult Date Type of Consult id Date/Time of Note DATE: 05/06/18 TIME: 14:09 Exam/Review of Systems Exam Vitals Vital Signs Date Temp Pulse Resp B/P (MAP) Pulse Ox O2 O2 Flow FiO2 Time Delivery Rate 05/06/18 74 20 111/68 96 Room Air 13:56 (82) 05/06/18 98.0 13:28 05/04/18 21 17:16 Intake and Output 05/05/18 05/05/18 05/06/18 1515:00 23:00 07:00 IntakeIntake Total 1150 ml OutputOutput Total 350 ml 1150 ml 201 ml BalanceBalance -350 ml 0 ml -201 ml Results Result Diagram: 05/05/18 0548 05/05/18 0548 Results 24hrs Laboratory Tests Test 05/05/18 17:19 05/05/18 21:09 05/06/18 00:39 05/06/18 01:46 Bedside Glucose 211 135 176 210 Test 05/06/18 05:55 05/06/18 08:05 05/06/18 11:32 Bedside Glucose 156 163 Erythrocyte 90 H Sedimentation Rate C-Reactive Protein 15.8 H Medications Medication Current Medications IV Flush (NS 3 ml) 3 ml PER PROTOCOL IV ; Start 04/29/18 at 19:00 Acetaminophen/ Hydrocodone Bitart ([place] (5/325)) 2 tab Q6H PRN PO .SEVERE PAIN 7-10 Last administered on 05/01/18 11:42; Admin Dose 2 TAB; Start 04/29/18 at 19:00 Heparin Sodium (Porcine) (Heparin (5000 Units/1ml)) 5,000 unit Q12 SC Last administered on 05/05/18 08:20; Admin Dose 5,000 UNIT; Start 04/29/18 at 21:00 Fluconazole (Diflucan) 200 mg DAILY PO Last administered on 05/05/18 08:17; Admin Dose 200 MG; Start 04/29/18 at 22:00 Ondansetron HCl (Zofran Inj) 4 mg Q4H PRN IV NAUSEA AND/OR VOMITING Last administered on 05/06/18 00:37; Admin Dose 4 MG; Start 04/30/18 at 05:00 Sodium Hypochlorite (Dakin'S (Dilute 40)) 1 applic DAILY IRR Last administered on 05/05/18 08:24; Admin Dose 1 APPLIC; Start 04/30/18 at 15:00 Albuterol/ Ipratropium (Duoneb) 3 ml Q4H RESP THERAPY PRN HHN SHORTNESS OF BREATH Last administered on 05/04/18 17:15; Admin Dose 3 ML; Start 04/30/18 at 20:00 Pantoprazole (Protonix Iv) 40 mg DAILY@06 IV Last administered on 05/06/18 05:59; Admin Dose 40 MG; Start 05/01/18 at 13:00 Ceftriaxone Sodium 50 ml @ 100 mls/hr Q24H IVPB Last administered on 05/05/18 17:20; Admin Dose 100 MLS/HR; Start 05/02/18 at 17:30 Linezolid (Zyvox) 600 mg BID PO Last administered on 05/05/18 21:10; Admin Dose 600 MG; Start 05/02/18 at 21:00 Docusate Sodium (Colace) 100 mg BID PO Last administered on 05/05/18 21:10; Admin Dose 100 MG; Start 05/02/18 at 21:00 Polyethylene Glycol (Miralax) 17 gm DAILY PO Last administered on 05/03/18 08:00; Admin Dose 17 GM; Start 05/02/18 at 20:30 Metformin HCl (Glucophage) 500 mg BID WITH MEALS PO Last administered on 05/05/18 17:21; Admin Dose 500 MG; Start 05/03/18 at 18:05 Diagnostic Test (Pha) (Accu-Chek) 1 ea AC MEALS AND BEDTIME XX Last administered on 05/06/18at 08:06; Admin Dose 1 EA; Start 05/03/18 at 17:35 Miscellaneous Information 1 ea NOTE XX ; Start 05/03/18 at 14:30 Glucose (Glutose) 15 gm Q15M PRN PO DECREASED GLUCOSE; Start 05/03/18 at 14:30 Glucose (Glutose) 22.5 gm Q15M PRN PO DECREASED GLUCOSE; Start 05/03/18 at 14:30 Dextrose (D50w Syringe) 25 ml Q15M PRN IV DECREASED GLUCOSE; Start 05/03/18 at 14:30 Dextrose (D50w Syringe) 50 ml Q15M PRN IV DECREASED GLUCOSE; Start 05/03/18 at 14:30 Glucagon (Glucagen) 1 mg Q15M PRN IM DECREASED GLUCOSE; Start 05/03/18 at 14:30 Glucose (Glutose) 15 gm Q15M PRN BUCCAL DECREASED GLUCOSE; Start 05/03/18 at 14:30 Insulin Aspart (Novolog Insulin Pen) 10 unit WITH MEALS SC Last administered on 05/05/18at 17:26; Admin Dose 10 UNIT; Start 05/04/18 at 17:35 Insulin Glargine (Lantus) 33 units DAILY@2000 SC Last administered on 05/05/18at 21:14; Admin Dose 33 UNITS; Start 05/04/18 at 20:00 Insulin Aspart (Novolog Insulin Pen) NOVOLOG *MILD* ALGORI... Q4 SC Last administered on 05/06/18at 08:14; Admin Dose 1 UNIT; Start 05/06/18 at 01:00 KITTY DUMONT NP May 06, 2018 14:09
--- NOTE | 2018-05-06 14:49 | OPR ---
DATE OF OPERATION: 05/06/2018 PREOPERATIVE DIAGNOSIS: Left foot gangrene. POSTOPERATIVE DIAGNOSIS: Left foot gangrene. PROCEDURE PERFORMED: Aortogram with left lower extremity runoff. SURGEON: Alex Ramos MD ANESTHESIA: Local with sedation. ESTIMATED BLOOD LOSS: Minimal. COMPLICATIONS: No intraprocedural complications. INDICATIONS: A 57-year-old diabetic hypertensive gentleman. He has a necrotizing infection in the l eft foot. He had an abnormal left lower extremity arterial duplex and I brought him in today for ang iogram and possible intervention to maximize perfusion to the foot for wound healing. DESCRIPTION OF PROCEDURE: The patient was brought to the warehouse laborer, placed on the table in supine pos ition. Right groin was prepped and draped in the usual sterile fashion. I began by infiltrating ove r the right common femoral artery using 10 mL of 1% Xylocaine. I used ultrasound to identify the rig ht common femoral artery. I then entered the artery under ultrasound guidance with a micropuncture n eedle. An 0.018 wire was inserted through the needle into the artery, then a micropuncture sheath wa s advanced over the wire into the artery. I then advanced an 0.035 Bentson wire up and into the abdo janina aorta. I exchanged the micropuncture sheath for a 5-[place] sheath over wire, advanced rim cath eter into the infrarenal aorta and did an aortogram. I used an 0.035 Advantage wire and the rim cath eter to go up and over the bifurcation. I advanced the catheter down into the left SFA and then did runoff down the left lower extremity. FINDINGS OF ANGIOGRAPHY: The infrarenal aorta is totally normal. It is widely patent. Both common external and internal iliac arteries are widely patent. The left common, superficial and profunda fe moral artery is normal in caliber. No disease whatsoever. Left popliteal artery is widely patent. There is 3-vessel runoff below the knee, but the anterior and posterior tibials both go down across t he ankle and then into the foot. There is a good pedal arch. Peroneal dissipates in the distal calf , but this is normal. IMPRESSION: Normal left aortogram and left lower extremity runoff. There are no signs of any arteri al disease. Catheters, sheaths and wires were removed then manual compression was used to achieve he mostasis in the right groin. He was then transferred to the PACU in stable condition. He tolerated the procedure well without any complications. Dictated By: ALEX MILLER/LUCIEN Conf#: [id number] DID#: [id number] CC: JACQUI DURÁN DO; RACHELLE PRICEM; ENEDELIA WILKINS CARTOGRAPHIC DESIGNER; TRU LANIER MD; NIMISHA Charlton PM; KATHERINE DYER MD;*EndCC*
[2018-05-06] MEDS: metroNIDAZOLE 500 MG TAB PO SCH ×2 (17:38→23:40)
[2018-05-06] MEDS: CEFTRIAXONE 1 GM/50 ML (PMX) 50 ML IVPB SCH (17:38)
[2018-05-06] MEDS: SODIUM HYPOCHLORITE (1/40) 1 APPLIC BTL IRR SCH (17:39)
[2018-05-06] MEDS: INSULIN GLARGINE [LANTus] (100 UNITS/ML) SYG SC SCH (21:41)
[2018-05-07 02:08] VITALS: BP 104/55; PULSE 84; RESP 16
[2018-05-07] MEDS: PANTOPRAZOLE (EC) 40 MG TAB PO SCH (05:40)
[2018-05-07] MEDS: metroNIDAZOLE 500 MG TAB PO SCH ×3 (05:40→17:49)
--- NOTE | 2018-05-07 07:55 | PREAC ---
Date/Time of Note Date/Time of Note DATE: 05/07/18 TIME: 07:53 Anesthesia Eval and Record Evaluation Time Pre-Procedure Interview DATE: 05/07/18 TIME: 07:53 Age 57 Sex male NPO: 8 hrs Preoperative diagnosis osteomyelitis. Planned procedure LEFT FOOT DEBRIDEMENT Past Medical History Past Medical History: Includes Cardio: HTN, Other (periperhal arterial disease) Endo: Diabetes Renal: ALESSANDRO, CKD GI: Obesity Heme: Anemia Surgery & Anesthesia Issues No known issue Meds Anticoagulation: No Beta Celeste within 24 hr: No Reason Beta Celeste not given: Pt. not on B-Celeste Reported Medications Lisinopril* (Lisinopril*) 20 Mg Tablet, 20 MG PO DAILY, #30 TAB 04/29/18 Glipizide* (Glipizide*) 10 Mg Tablet, 10 MG PO AC BREAKFAST DINNER, TAB 04/29/18 Ibuprofen* (Ibuprofen*) 800 Mg Tablet, 800 MG PO Q6H PRN for PAIN, TAB 04/29/18 Insulin Glargine,Hum.rec.anlog (Kayla Feliciano U-100) 100 Unit/1 Ml Insuln.pen, UNIT SC SLIDING SCALE, EA 04/29/18 Simvastatin* (Zocor*) 20 Mg Tablet, 20 MG PO QHS, #30 TAB 04/29/18 Fluconazole* (Fluconazole*) 200 Mg Tablet, 400 MG PO DAILY, TAB 04/29/18 Levofloxacin* (Levofloxacin*) 750 Mg Tablet, 750 MG PO DAILY, TAB 04/29/18 Current Medications IV Flush (NS 3 ml) 3 ml PER PROTOCOL IV ; Start 04/29/18 at 19:00 Acetaminophen/ Hydrocodone Bitart ([place] (5/325)) 2 tab Q6H PRN PO .SEVERE PAIN 7-10 Last administered on 05/01/18at 11:42; Admin Dose 2 TAB; Start 04/29/18 at 19:00 Heparin Sodium (Porcine) (Heparin (5000 Units/1ml)) 5,000 unit Q12 SC Last administered on 05/06/18at 21:42; Admin Dose 5,000 UNIT; Start 04/29/18 at 21:00 Ondansetron HCl (Zofran Inj) 4 mg Q4H PRN IV NAUSEA AND/OR VOMITING Last administered on 05/06/18at 00:37; Admin Dose 4 MG; Start 04/30/18 at 05:00 Sodium Hypochlorite (Dakin'S (Dilute )) 1 applic DAILY IRR Last administered on 05/06/18 17:39; Admin Dose 1 APPLIC; Start 04/30/18 at 15:00 Albuterol/ Ipratropium (Duoneb) 3 ml Q4H RESP THERAPY PRN HHN SHORTNESS OF BREATH Last administered on 05/04/18 17:15; Admin Dose 3 ML; Start 04/30/18 at 20:00 Ceftriaxone Sodium 50 ml @ 100 mls/hr Q24H IVPB Last administered on 05/06/18 17:38; Admin Dose 100 MLS/HR; Start 05/02/18 at 17:30 Linezolid (Zyvox) 600 mg BID PO Last administered on 05/06/18 21:42; Admin Dose 600 MG; Start 05/02/18 at 21:00 Docusate Sodium (Colace) 100 mg BID PO Last administered on 05/06/18 21:42; Admin Dose 100 MG; Start 05/02/18 at 21:00 Polyethylene Glycol (Miralax) 17 gm DAILY PO Last administered on 05/03/18 08:00; Admin Dose 17 GM; Start 05/02/18 at 20:30 Metformin HCl (Glucophage) 500 mg BID WITH MEALS PO Last administered on 05/06/18 17:38; Admin Dose 500 MG; Start 05/03/18 at 18:05 Diagnostic Test (Pha) (Accu-Chek) 1 ea AC MEALS AND BEDTIME XX Last administered on 05/06/18 21:00; Admin Dose 1 EA; Start 05/03/18 at 17:35 Miscellaneous Information 1 ea NOTE XX ; Start 05/03/18 at 14:30 Glucose (Glutose) 15 gm Q15M PRN PO DECREASED GLUCOSE; Start 05/03/18 at 14:30 Glucose (Glutose) 22.5 gm Q15M PRN PO DECREASED GLUCOSE; Start 05/03/18 at 14:30 Dextrose (D50w Syringe) 25 ml Q15M PRN IV DECREASED GLUCOSE; Start 05/03/18 at 14:30 Dextrose (D50w Syringe) 50 ml Q15M PRN IV DECREASED GLUCOSE; Start 05/03/18 at 14:30 Glucagon (Glucagen) 1 mg Q15M PRN IM DECREASED GLUCOSE; Start 05/03/18 at 14:30 Glucose (Glutose) 15 gm Q15M PRN BUCCAL DECREASED GLUCOSE; Start 05/03/18 at 14:30 Insulin Aspart (Novolog Insulin Pen) 10 unit WITH MEALS SC Last administered on 05/06/18at 17:42; Admin Dose 10 UNIT; Start 05/04/18 at 17:35 Insulin Glargine (Lantus) 33 units DAILY@2000 SC Last administered on 05/06/18at 21:41; Admin Dose 33 UNITS; Start 05/04/18 at 20:00 Metronidazole (Flagyl) 500 mg Q6 PO Last administered on 05/07/18at 05:40; Admin Dose 500 MG; Start 05/06/18 at 18:00 Pantoprazole (Protonix Tab) 40 mg DAILY@06 PO Last administered on 05/07/18at 05:40; Admin Dose 40 MG; Start 05/07/18 at 06:00 Insulin Aspart (Novolog Insulin Pen) NOVOLOG *MILD* ALGORITHM WITH MEALS BEDTIME SC ; Start 05/07/18 at 08:00 Meds reviewed: Yes Allergies Coded Allergies: No Known Allergy (Unverified , 04/29/18) Allergies Reviewed: Yes Labs/Studies Labs Reviewed: Reviewed by anesthesiologist Result Diagram: 05/07/18 0616 05/07/18 0615 Laboratory Tests 05/07/18 06:15 05/07/18 06:16 test: N/A Studies: CXR (Mild Cardiomegaly.) Pre-procedure Exam Last vitals Vital Signs Date Temp Pulse Resp B/P (MAP) Pulse Ox O2 O2 Flow FiO2 Time Delivery Rate 05/07/18 98.8 84 16 104/55 96 02:08 (71) 05/06/18 Room Air 14:30 05/04/18 21 17:16 Airway: Adequate mouth opening, Adequate thyromental dist Mallampati: Mallampati II Teeth: Normal Lung: Normal Heart: Normal ASA Physical Status ASA physical status: 3 Emergency: None Planned Anesthetic General/MAC: ETT Pre-operative Attestations Prior to commencing anesthesia and surgery, the patient was re-evaluated, there was verification of: *The patient's identity *The results of appropriate recent lab work and preoperative vital signs *The above evaluation not changing prior to induction *Anesthetic plan, risk benefits, alternative and complications discussed with patient/family; questions answered; patient/family understands, accepts and wishes to proceed. MATEUS SHIN May 07, 2018 07:55
[2018-05-07] MEDS: INSULIN ASPART [NOVOLOG] 3 ML PEN SC SCH ×7 (08:00→21:00)
[2018-05-07] MEDS: ACCU-CHEK XX SCH ×4 (08:17→21:00)
[2018-05-07 08:26] VITALS: BP 104/54; PULSE 77; RESP 18
[2018-05-07] MEDS: HEPARIN 5,000 UNIT/1 ML VIAL SC SCH ×2 (08:26→20:42)
[2018-05-07] MEDS: metFORMIN 500 MG TAB PO SCH ×2 (08:27→17:49)
[2018-05-07] MEDS: POLYETHYLENE GLYCOL 17 GM PACKET PO SCH ×3 (08:27→08:51)
[2018-05-07] MEDS: ZYVOX 600 MG TAB PO SCH ×2 (08:27→20:39)
[2018-05-07] MEDS: DOCUSATE SODIUM 100 MG CAP PO SCH ×2 (08:27→20:39)
[2018-05-07] MEDS: SODIUM HYPOCHLORITE (1/40) 1 APPLIC BTL IRR SCH (09:02)
[2018-05-07 14:02] VITALS: BP 113/67; PULSE 80; RESP 18
--- NOTE | 2018-05-07 14:08 | CONS ---
Assessment/Plan Assessment/Plan Assessment/Plan (Daily) Left foot diabetic ulcer Left foot osteomyelitis Left foot cellulitis Left 5th digit gangrene DM2 with peripheral neuropathy ALESSANDRO - resolved Plan: Dressings were changed and to be keep clean dry and intact. Intra op cultures showing VRE and pathology showing gangrenous tissue. Previous cultures showing e.coli, enteroccocus species, and corynebacterium. Offload heels with pillows. X-rays and MRI reviewed with noted signs of osteomyelitis. IV abx and antifungal therapy per ID recommendations. Cultures on previous hospitalization showed VRE, e.coli and uyliana albicans. Patient underwent angiogram and was noted to have 3 vessel run-off to the left lower extremity and without disease. Discussed with patient possibility of TMA if wounds do not improve. Patient refusing TMA at this time. Discussed further OR debridement Friday05/08/18. Prepare consent and NPO after midnight tonight. Consultation Date/Type/Reason Admit Date/Time Apr 29, 2018 at 18:18 Initial Consult Date Date/Time of Note DATE: 05/07/18 TIME: 14:07 24 HR Interval Summary Free Text/Dictation No acute events overnight. Exam/Review of Systems Exam Vitals Vital Signs Date Temp Pulse Resp B/P (MAP) Pulse Ox O2 O2 Flow FiO2 Time Delivery Rate 05/07/18 98.0 80 18 113/67 98 Room Air 14:02 (82) 05/04/18 21 17:16 Intake and Output 05/06/18 05/06/18 05/07/18 1515:00 23:00 07:00 IntakeIntake Total 450 ml OutputOutput Total 500 ml 510 ml BalanceBalance -50 ml -510 ml Exam Exam DP/PT pulses palpable Absent protective sensations Left plantar hallux ulceration mixed fibrotic and granular wound base 4 x 2 x 1.5cm which probes to bone and communicates with dorsal hallux ulceration site 2 x 1 x 1.5cm. There is surrounding erythema and maceration noted to the forefoot area. Purulent drainage appreciated to the left hallux ulceration sites There are ulcerations between the lesser digits on the medial and lateral aspects of digits 2-4 mixed fibrotic and granular wound base 0.2 x 0.2 x 0.2cm and interdigital maceration appreciated. There is dry gangrene to left 5th digit with maceration noted. Muscle strength 5/5 in all compartments of the foot. Foot X-ray IMPRESSION: Findings consistent with osteomyelitis at the great toe proximal and distal phalanges, the second proximal phalanx and distal metatarsal, and possibly the third proximal phalanx and distal metatarsal. Non invasive arterial studies IMPRESSION: No evidence of a significant arterial stenosis in the right lower extremity. Change from triphasic to monophasic waveforms in the left popliteal artery consistent with a significant stenosis between the distal left superficial femoral artery and popliteal artery. Pathology Left foot tissue: -- Gangrenous necrosis of skin and subcutaneous tissue. -- No bone is microscopically identified. -- There is no evidence of malignancy. Results Result Diagram: 05/07/18 0616 05/07/18 0615 Results 24hrs Laboratory Tests Test 05/06/18 17:29 05/06/18 21:37 05/07/18 06:15 05/07/18 06:16 Bedside Glucose 115 119 Sodium Level 137 Potassium Level 4.0 Chloride Level 106 Carbon Dioxide Level 20 L Anion Gap 11 Blood Urea Nitrogen 19 Creatinine 1.03 Est Glomerular > 60 Filtrat Rate mL/min Glucose Level 120 Calcium Level 9.1 White Blood Count 10.0 Red Blood Count 3.32 L Hemoglobin 9.2 L Hematocrit 28.5 L Mean Corpuscular 85.8 Volume Mean Corpuscular 27.7 L Hemoglobin Mean Corpuscular 32.3 Hemoglobin Concent Red Cell 13.1 Distribution Width Platelet Count 337 Mean Platelet Volume 8.8 Immature 0.800 H Granulocytes % Neutrophils % 70.5 Lymphocytes % 18.9 Monocytes % 6.3 Eosinophils % 3.0 Basophils % 0.5 Nucleated Red Blood 0.0 Cells % Immature 0.080 H Granulocytes # Neutrophils # 7.1 Lymphocytes # 1.9 Monocytes # 0.6 Eosinophils # 0.3 Basophils # 0.1 Nucleated Red Blood 0.0 Cells # Test 05/07/18 08:05 05/07/18 12:20 Bedside Glucose 123 132 Medications Medication Current Medications IV Flush (NS 3 ml) 3 ml PER PROTOCOL IV ; Start 04/29/18 at 19:00 Acetaminophen/ Hydrocodone Bitart ([place] (5/325)) 2 tab Q6H PRN PO .SEVERE PAIN 7-10 Last administered on 05/01/18at 11:42; Admin Dose 2 TAB; Start 04/29/18 at 19:00 Heparin Sodium (Porcine) (Heparin (5000 Units/1ml)) 5,000 unit Q12 SC Last administered on 05/07/18 08:26; Admin Dose 5,000 UNIT; Start 04/29/18 at 21:00 Ondansetron HCl (Zofran Inj) 4 mg Q4H PRN IV NAUSEA AND/OR VOMITING Last administered on 05/06/18 00:37; Admin Dose 4 MG; Start 04/30/18 at 05:00 Sodium Hypochlorite (Dakin'S (Dilute )) 1 applic DAILY IRR Last administered on 05/07/18 09:02; Admin Dose 1 APPLIC; Start 04/30/18 at 15:00 Albuterol/ Ipratropium (Duoneb) 3 ml Q4H RESP THERAPY PRN HHN SHORTNESS OF BREATH Last administered on 05/04/18 17:15; Admin Dose 3 ML; Start 04/30/18 at 20:00 Ceftriaxone Sodium 50 ml @ 100 mls/hr Q24H IVPB Last administered on 05/06/18 17:38; Admin Dose 100 MLS/HR; Start 05/02/18 at 17:30 Linezolid (Zyvox) 600 mg BID PO Last administered on 05/07/18 08:27; Admin Dose 600 MG; Start 05/02/18 at 21:00 Docusate Sodium (Colace) 100 mg BID PO Last administered on 05/07/18 08:27; Admin Dose 100 MG; Start 05/02/18 at 21:00 Polyethylene Glycol (Miralax) 17 gm DAILY PO Last administered on 05/03/18 08:00; Admin Dose 17 GM; Start 05/02/18 at 20:30 Metformin HCl (Glucophage) 500 mg BID WITH MEALS PO Last administered on 05/07/18 08:27; Admin Dose 500 MG; Start 05/03/18 at 18:05 Diagnostic Test (Pha) (Accu-Chek) 1 ea AC MEALS AND BEDTIME XX Last administered on 05/07/18 12:21; Admin Dose 1 EA; Start 05/03/18 at 17:35 Miscellaneous Information 1 ea NOTE XX ; Start 05/03/18 at 14:30 Glucose (Glutose) 15 gm Q15M PRN PO DECREASED GLUCOSE; Start 05/03/18 at 14:30 Glucose (Glutose) 22.5 gm Q15M PRN PO DECREASED GLUCOSE; Start 05/03/18 at 14:30 Dextrose (D50w Syringe) 25 ml Q15M PRN IV DECREASED GLUCOSE; Start 05/03/18 at 14:30 Dextrose (D50w Syringe) 50 ml Q15M PRN IV DECREASED GLUCOSE; Start 05/03/18 at 14:30 Glucagon (Glucagen) 1 mg Q15M PRN IM DECREASED GLUCOSE; Start 05/03/18 at 14:30 Glucose (Glutose) 15 gm Q15M PRN BUCCAL DECREASED GLUCOSE; Start 05/03/18 at 14:30 Insulin Aspart (Novolog Insulin Pen) 10 unit WITH MEALS SC Last administered on 05/07/18at 12:21; Admin Dose 10 UNIT; Start 05/04/18 at 17:35 Insulin Glargine (Lantus) 33 units DAILY@2000 SC Last administered on 05/06/18at 21:41; Admin Dose 33 UNITS; Start 05/04/18 at 20:00 Metronidazole (Flagyl) 500 mg Q6 PO Last administered on 05/07/18at 12:21; Admin Dose 500 MG; Start 05/06/18 at 18:00 Pantoprazole (Protonix Tab) 40 mg DAILY@06 PO Last administered on 05/07/18at 05:40; Admin Dose 40 MG; Start 05/07/18 at 06:00 Insulin Aspart (Novolog Insulin Pen) NOVOLOG *MILD* ALGORITHM WITH MEALS BEDTIME SC ; Start 05/07/18 at 08:00 NIMISHA HENNING DPM May 07, 2018 14:08
--- NOTE | 2018-05-07 15:20 | PN ---
Date/Time of Note Date/Time of Note DATE: 05/07/18 TIME: 15:17 Assessment/Plan VTE Prophylaxis Risk score (from Ns)>0 risk: 7 SCD applied (from Ns): Yes Pharmacological prophylaxis: heparin Lines/Catheters IV [facility]from [facility] [place] Urinary Cath still in place: No Assessment/Plan Assessment/Plan 1. Left foot infection with osteomyelitis, s/p debridement, continue wound care and keep antibiotics(rocephin, zyvox and diflucan) for 6-8 weeks per ID, surgical I&D tomorrow 2. Acute kidney injury, resolved 4. Hyperchloremic metabolic acidosis. resolved 5. Diabetes. Continue current insulin regimen. 6. Dyslipidemia, on statin 7. DVT prophylaxis: heparin Result Diagram: 05/07/18 0616 05/07/18 0615 Results 24hrs Laboratory Tests Test 05/06/18 17:29 05/06/18 21:37 05/07/18 06:15 05/07/18 06:16 Bedside Glucose 115 119 Sodium Level 137 Potassium Level 4.0 Chloride Level 106 Carbon Dioxide Level 20 L Anion Gap 11 Blood Urea Nitrogen 19 Creatinine 1.03 Est Glomerular > 60 Filtrat Rate mL/min Glucose Level 120 Calcium Level 9.1 White Blood Count 10.0 Red Blood Count 3.32 L Hemoglobin 9.2 L Hematocrit 28.5 L Mean Corpuscular 85.8 Volume Mean Corpuscular 27.7 L Hemoglobin Mean Corpuscular 32.3 Hemoglobin Concent Red Cell 13.1 Distribution Width Platelet Count 337 Mean Platelet Volume 8.8 Immature 0.800 H Granulocytes % Neutrophils % 70.5 Lymphocytes % 18.9 Monocytes % 6.3 Eosinophils % 3.0 Basophils % 0.5 Nucleated Red Blood 0.0 Cells % Immature 0.080 H Granulocytes # Neutrophils # 7.1 Lymphocytes # 1.9 Monocytes # 0.6 Eosinophils # 0.3 Basophils # 0.1 Nucleated Red Blood 0.0 Cells # Test 05/07/18 08:05 05/07/18 12:20 Bedside Glucose 123 132 Subjective 24 Hr Interval Summary Free Text/Dictation mechanism assembler's note is reviewed. no fever Exam/Review of Systems Exam Vitals Vital Signs Date Temp Pulse Resp B/P (MAP) Pulse Ox O2 O2 Flow FiO2 Time Delivery Rate 05/07/18 98.0 80 18 113/67 98 Room Air 14:02 (82) 05/04/18 21 17:16 Intake and Output 05/06/18 05/06/18 05/07/18 1414:59 22:59 06:59 IntakeIntake Total 450 ml OutputOutput Total 500 ml 510 ml BalanceBalance -50 ml -510 ml Constitutional: alert, oriented, well developed Psych: no complaints, nl mood/affect Head: normocephalic, atraumatic Eyes: nl conjunctiva, EOMI, nl lids ENMT: nl external ears & nose, nl lips & teeth, nl nasal mucosa & septum Neck: supple, non-tender Respiratory: clear to auscultation, normal air movement; No congested cough, No crackles/rales, No diminished breath sounds, No intercostal retraction, No labored breathing, No respirations, No tactile fremitus, No wheezing, No other Cardiovascular: regular rate and rhythm, nl pulses; No bruits, No diastolic murmur, No edema, No gallop, No irregular rhythm, No jugular venous distention (JVD), No murmurs/extra sounds, No rub, No systolic murmur, No S3, No S4, No other Gastrointestinal: soft, nl liver, spleen, non-tender Extremities: other (left foot wound) 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: [employer]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 II-XII intact, nl mental status, nl speech, nl strength Results Results 24hrs Laboratory Tests Test 05/06/18 17:29 05/06/18 21:37 05/07/18 06:15 05/07/18 06:16 Bedside Glucose 115 119 Sodium Level 137 Potassium Level 4.0 Chloride Level 106 Carbon Dioxide Level 20 L Anion Gap 11 Blood Urea Nitrogen 19 Creatinine 1.03 Est Glomerular > 60 Filtrat Rate mL/min Glucose Level 120 Calcium Level 9.1 White Blood Count 10.0 Red Blood Count 3.32 L Hemoglobin 9.2 L Hematocrit 28.5 L Mean Corpuscular 85.8 Volume Mean Corpuscular 27.7 L Hemoglobin Mean Corpuscular 32.3 Hemoglobin Concent Red Cell 13.1 Distribution Width Platelet Count 337 Mean Platelet Volume 8.8 Immature 0.800 H Granulocytes % Neutrophils % 70.5 Lymphocytes % 18.9 Monocytes % 6.3 Eosinophils % 3.0 Basophils % 0.5 Nucleated Red Blood 0.0 Cells % Immature 0.080 H Granulocytes # Neutrophils # 7.1 Lymphocytes # 1.9 Monocytes # 0.6 Eosinophils # 0.3 Basophils # 0.1 Nucleated Red Blood 0.0 Cells # Test 05/07/18 08:05 05/07/18 12:20 Bedside Glucose 123 132 Medications Medication Current Medications IV Flush (NS 3 ml) 3 ml PER PROTOCOL IV ; Start 04/29/18 at 19:00 Acetaminophen/ Hydrocodone Bitart ([place] (5/325)) 2 tab Q6H PRN PO .SEVERE PAIN 7-10 Last administered on 05/01/18 11:42; Admin Dose 2 TAB; Start 04/29/18 at 19:00 Heparin Sodium (Porcine) (Heparin (5000 Units/1ml)) 5,000 unit Q12 SC Last a dministered on 05/07/18 08:26; Admin Dose 5,000 UNIT; Start 04/29/18 at 21:00 Ondansetron HCl (Zofran Inj) 4 mg Q4H PRN IV NAUSEA AND/OR VOMITING Last administered on 05/06/18 00:37; Admin Dose 4 MG; Start 04/30/18 at 05:00 Sodium Hypochlorite (Dakin'S (Dilute 140)) 1 applic DAILY IRR Last admini stered on 05/07/18 09:02; Admin Dose 1 APPLIC; Start 04/30/18 at 15:00 Albuterol/ Ipratropium (Duoneb) 3 ml Q4H RESP THERAPY PRN HHN SHORTNESS OF BREATH Last administered on 05/04/18 17:15; Admin Dose 3 ML; Start 04/30/18 at 20:00 Ceftriaxone Sodium 50 ml @ 100 mls/hr Q24H IVPB Last administered on 05/06/18 17:38; Admin Dose 100 MLS/HR; Start 05/02/18 at 17:30 Linezolid (Zyvox) 600 mg BID PO Last administered on 05/07/18 08:27; Admin Dose 600 MG; Start 05/02/18 at 21:00 Docusate Sodium (Colace) 100 mg BID PO Last administered on 05/07/18 08:27; Admin Dose 100 MG; Start 05/02/18 at 21:00 Polyethylene Glycol (Miralax) 17 gm DAILY PO Last administered on 3/10/19at 08:00; Admin Dose 17 GM; Start 05/02/18 at 20:30 Metformin HCl (Glucophage) 500 mg BID WITH MEALS PO Last administered on 08:27; Admin Dose 500 MG; Start 05/03/18 at 18:05 Diagnostic Test (Pha) (Accu-Chek) 1 ea AC MEALS AND BEDTIME XX Last administered on 05/07/18 12:21; Admin Dose 1 EA; Start 05/03/18 at 17:35 Miscellaneous Information 1 ea NOTE XX ; Start 05/03/18 at 14:30 Glucose (Glutose) 15 gm Q15M PRN PO DECREASED GLUCOSE; Start 05/03/18 at 14:30 Glucose (Glutose) 22.5 gm Q15M PRN PO DECREASED GLUCOSE; Start 05/03/18 at 14:30 Dextrose (D50w Syringe) 25 ml Q15M PRN IV DECREASED GLUCOSE; Start 05/03/18 at 14:30 Dextrose (D50w Syringe) 50 ml Q15M PRN IV DECREASED GLUCOSE; Start 05/03/18 at 14:30 Glucagon (Glucagen) 1 mg Q15M PRN IM DECREASED GLUCOSE; Start 05/03/18 at 14:30 Glucose (Glutose) 15 gm Q15M PRN BUCCAL DECREASED GLUCOSE; Start 05/03/18 at 14:30 Insulin Aspart (Novolog Insulin Pen) 10 unit WITH MEALS SC Last administered on 05/07/18 12:21; Admin Dose 10 UNIT; Start 05/04/18 at 17:35 Insulin Glargine (Lantus) 33 units DAILY@2000 SC Last administered on 05/06/18 21:41; Admin Dose 33 UNITS; Start 05/04/18 at 20:00 Metronidazole (Flagyl) 500 mg Q6 PO Last administered on 05/07/18 12:21; Admin Dose 500 MG; Start 05/06/18 at 18:00 Pantoprazole (Protonix Tab) 40 mg DAILY@06 PO Last administered on 05/07/18 05:40; Admin Dose 40 MG; Start 05/07/18 at 06:00 Insulin Aspart (Novolog Insulin Pen) NOVOLOG *MILD* ALGORITHM WITH MEALS BEDTIME SC ; Start 05/07/18 at 08:00 KATHERINE DYER MD May 07, 2018 15:20
--- NOTE | 2018-05-07 16:39 | CONS ---
Assessment/Plan Assessment/Plan Hospital Course (Demo Recall) No acute changes overnight, alert, feels good Wound culture grew VRE E. coli Corynebacterium species and Bacteroides fragilis Antimicrobials: Zyvox Rocephin, Flagyl PHYSICAL EXAMINATION: GENERAL: This is a well-developed, well-nourished, middle-aged man who is awake, in no distress. HEENT: Head is atraumatic, normocephalic. NECK: Supple. CHEST: Rise symmetrical. Breath sounds diminished to bases. HEART: S1, S2. ABDOMEN: Soft. Bowel tones are present. EXTREMITIES: With left foot dressing intact. Assessment: 1. 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 Diabetes 3. Obesity 4. Acute possibly on chronic kidney disease Plan: Remains stable, daptomycin was discontinued secondary to elevated CK, continue local wound care per podiatry recommendations. Patient will require 6-8 weeks of current abx Consultation Date/Type/Reason Admit Date/Time Apr 29, 2018 at 18:18 Initial Consult Date Type of Consult id Date/Time of Note DATE: 05/07/18 TIME: 16:37 Exam/Review of Systems Exam Vitals Vital Signs Date Temp Pulse Resp B/P (MAP) Pulse Ox O2 O2 Flow FiO2 Time Delivery Rate 05/07/18 98.0 80 18 113/67 98 Room Air 14:02 (82) 05/04/18 21 17:16 Intake and Output 05/06/18 05/06/18 05/07/18 1414:59 22:59 06:59 IntakeIntake Total 450 ml OutputOutput Total 500 ml 510 ml BalanceBalance -50 ml -510 ml Results Result Diagram: 05/07/18 0616 05/07/18 0615 Results 24hrs Laboratory Tests Test 05/06/18 17:29 05/06/18 21:37 05/07/18 06:15 05/07/18 06:16 Bedside Glucose 115 119 Sodium Level 137 Potassium Level 4.0 Chloride Level 106 Carbon Dioxide Level 20 L Anion Gap 11 Blood Urea Nitrogen 19 Creatinine 1.03 Est Glomerular > 60 Filtrat Rate mL/min Glucose Level 120 Calcium Level 9.1 White Blood Count 10.0 Red Blood Count 3.32 L Hemoglobin 9.2 L Hematocrit 28.5 L Mean Corpuscular 85.8 Volume Mean Corpuscular 27.7 L Hemoglobin Mean Corpuscular 32.3 Hemoglobin Concent Red Cell 13.1 Distribution Width Platelet Count 337 Mean Platelet Volume 8.8 Immature 0.800 H Granulocytes % Neutrophils % 70.5 Lymphocytes % 18.9 Monocytes % 6.3 Eosinophils % 3.0 Basophils % 0.5 Nucleated Red Blood 0.0 Cells % Immature 0.080 H Granulocytes # Neutrophils # 7.1 Lymphocytes # 1.9 Monocytes # 0.6 Eosinophils # 0.3 Basophils # 0.1 Nucleated Red Blood 0.0 Cells # Test 05/07/18 08:05 05/07/18 12:20 Bedside Glucose 123 132 Medications Medication Current Medications IV Flush (NS 3 ml) 3 ml PER PROTOCOL IV ; Start 04/29/18 at 19:00 Acetaminophen/ Hydrocodone Bitart ([place] (5/325)) 2 tab Q6H PRN PO .SEVERE PAIN 7-10 Last administered on 05/01/18 11:42; Admin Dose 2 TAB; Start 04/29/18 at 19:00 Heparin Sodium (Porcine) (Heparin (5000 Units/1ml)) 5,000 unit Q12 SC Last administered on 05/07/18 08:26; Admin Dose 5,000 UNIT; Start 04/29/18 at 21:00 Ondansetron HCl (Zofran Inj) 4 mg Q4H PRN IV NAUSEA AND/OR VOMITING Last administered on 05/06/18 00:37; Admin Dose 4 MG; Start 04/30/18 at 05:00 Sodium Hypochlorite (Dakin'S (Dilute )) 1 applic DAILY IRR Last administered on 05/07/18 09:02; Admin Dose 1 APPLIC; Start 04/30/18 at 15:00 Albuterol/ Ipratropium (Duoneb) 3 ml Q4H RESP THERAPY PRN HHN SHORTNESS OF BREATH Last administered on 05/04/18 17:15; Admin Dose 3 ML; Start 04/30/18 at 20:00 Ceftriaxone Sodium 50 ml @ 100 mls/hr Q24H IVPB Last administered on 05/06/18 17:38; Admin Dose 100 MLS/HR; Start 05/02/18 at 17:30 Linezolid (Zyvox) 600 mg BID PO Last administered on 05/07/18 08:27; Admin Dos e 600 MG; Start 05/02/18 at 21:00 Docusate Sodium (Colace) 100 mg BID PO Last administered on 05/07/18 08:27; Admin Dose 100 MG; Start 05/02/18 at 21:00 Polyethylene Glycol (Miralax) 17 gm DAILY PO Last administered on 05/03/18 08:00; Admin Dose 17 GM; Start 05/02/18 at 20:30 Metformin HCl (Glucophage) 500 mg BID WITH MEALS PO Last administered on 05/07/18 08:27; Admin Dose 500 MG; Start 05/03/18 at 18:05 Diagnostic Test (Pha) (Accu-Chek) 1 ea AC MEALS AND BEDTIME XX Last administered on 05/07/18 12:21; Admin Dose 1 EA; Start 05/03/18 at 17:35 Miscellaneous Information 1 ea NOTE XX ; Start 05/03/18 at 14:30 Glucose (Glutose) 15 gm Q15M PRN PO DECREASED GLUCOSE; Start 05/03/18 at 14:30 Glucose (Glutose) 22.5 gm Q15M PRN PO DECREASED GLUCOSE; Start 05/03/18 at 14:30 Dextrose (D50w Syringe) 25 ml Q15M PRN IV DECREASED GLUCOSE; Start 05/03/18 at 14:30 Dextrose (D50w Syringe) 50 ml Q15M PRN IV DECREASED GLUCOSE; Start 05/03/18 at 14:30 Glucagon (Glucagen) 1 mg Q15M PRN IM DECREASED GLUCOSE; Start 05/03/18 at 14:30 Glucose (Glutose) 15 gm Q15M PRN BUCCAL DECREASED GLUCOSE; Start 05/03/18 at 14:30 Insulin Aspart (Novolog Insulin Pen) 10 unit WITH MEALS SC Last administered on 05/07/18 12:21; Admin Dose 10 UNIT; Start 05/04/18 at 17:35 Insulin Glargine (Lantus) 33 units DAILY@2000 SC Last administered on 05/06/18 21:41; Admin Dose 33 UNITS; Start 05/04/18 at 20:00 Metronidazole (Flagyl) 500 mg Q6 PO Last administered on 05/07/18 12:21; Admin Dose 500 MG; Start 05/06/18 at 18:00 Pantoprazole (Protonix Tab) 40 mg DAILY@06 PO Last administered on 3/14/19at 05:40; Admin Dose 40 MG; Start 05/07/18 at 06:00 Insulin Aspart (Novolog Insulin Pen) NOVOLOG *MILD* ALGORITHM WITH MEALS BEDTIME SC ; Start 05/07/18 at 08:00 KITTY DUMONT NP May 07, 2018 16:39
[2018-05-07] MEDS: CEFTRIAXONE 1 GM/50 ML (PMX) 50 ML IVPB SCH (18:14)
[2018-05-07] MEDS ORDERED: LIDOCAINE 1% (MPF) 5 ML VIAL SC ONE (19:00)
[2018-05-07 20:00] VITALS: BP 103/62; PULSE 85; RESP 18
[2018-05-07] MEDS: INSULIN GLARGINE [LANTus] (100 UNITS/ML) SYG SC SCH (20:43)
[2018-05-07] MEDS ORDERED: ZOLPIDEM 5 MG TAB PO ONE (22:00)
[2018-05-08] VITALS (19 sets, daily range): BP systolic 85–115; BP diastolic 46–72; PULSE 78–99; RESP 15–22
[2018-05-08] MEDS: metroNIDAZOLE 500 MG TAB PO SCH ×5 (00:41→23:08)
[2018-05-08] MEDS: PANTOPRAZOLE (EC) 40 MG TAB PO SCH (06:57)
[2018-05-08] MEDS: ACCU-CHEK XX SCH ×4 (07:30→21:00)
[2018-05-08] MEDS: INSULIN ASPART [NOVOLOG] 3 ML PEN SC SCH ×7 (07:35→21:00)
[2018-05-08] MEDS: metFORMIN 500 MG TAB PO SCH ×2 (08:00→17:13)
[2018-05-08] MEDS: DOCUSATE SODIUM 100 MG CAP PO SCH ×2 (08:38→21:58)
[2018-05-08] MEDS: POLYETHYLENE GLYCOL 17 GM PACKET PO SCH (08:39)
[2018-05-08] MEDS: HEPARIN 5,000 UNIT/1 ML VIAL SC SCH ×2 (08:39→21:00)
[2018-05-08] MEDS: ZYVOX 600 MG TAB PO SCH ×2 (09:00→21:58)
[2018-05-08] MEDS: SODIUM HYPOCHLORITE (1/40) 1 APPLIC BTL IRR SCH (09:00)
--- NOTE | 2018-05-08 12:55 | PN ---
Date/Time of Note Date/Time of Note DATE: 05/08/18 TIME: 12:53 Assessment/Plan VTE Prophylaxis Risk score (from Ns)>0 risk: 8 SCD applied (from Ns): Yes Pharmacological prophylaxis: heparin Lines/Catheters IV Catheter Type (from [facility]): [place] Urinary Cath still in place: No Assessment/Plan Assessment/Plan 1. Left foot infection with osteomyelitis, s/p debridement, continue wound care and keep antibiotics(rocephin, zyvox and diflucan) for 6-8 weeks per ID, declines amputation, surgical I&D 05/08/2018 2. Acute kidney injury, resolved 4. Hyperchloremic metabolic acidosis. resolved 5. Diabetes. Continue current insulin regimen. 6. Dyslipidemia, on statin 7. DVT prophylaxis: heparin Result Diagram: 05/07/18 0616 05/08/18 0608 Results 24hrs Laboratory Tests Test 05/07/18 17:48 05/07/18 20:38 05/08/18 06:04 05/08/18 06:08 Bedside Glucose 112 92 Erythrocyte 110 H Sedimentation Rate C-Reactive Protein 8.7 H Prothrombin Time 14.3 Prothrombin Time 1.1 Ratio INR International 1.10 Normalized Ratio Sodium Level 134 L Potassium Level 3.9 Chloride Level 104 Carbon Dioxide Level 20 L Anion Gap 10 Blood Urea Nitrogen 24 H Creatinine 1.14 Est Glomerular > 60 Filtrat Rate mL/min Glucose Level 108 Calcium Level 9.0 Test 05/08/18 08:35 05/08/18 12:49 Bedside Glucose 115 120 Subjective 24 Hr Interval Summary Free Text/Dictation afebrile Exam/Review of Systems Exam Vitals Vital Signs Date Temp Pulse Resp B/P (MAP) Pulse Ox O2 O2 Flow FiO2 Time Delivery Rate 05/08/18 78 105/67 10:13 (80) 05/08/18 98.2 18 98 09:12 05/07/18 Room Air 14:02 05/04/18 21 17:16 Intake and Output 05/07/18 05/07/18 05/08/18 1515:00 23:00 07:00 IntakeIntake Total 720 ml 290 ml OutputOutput Total 500 ml 575 ml 500 ml BalanceBalance 220 ml -285 ml -500 ml Constitutional: alert, oriented, well developed Psych: no complaints, nl mood/affect Head: normocephalic, atraumatic Eyes: nl conjunctiva, EOMI, nl lids, PERRL ENMT: nl external ears & nose, nl lips & teeth, nl nasal mucosa & septum Neck: supple, non-tender Respiratory: clear to auscultation, normal air movement; No congested cough, No crackles/rales, No diminished breath sounds, No intercostal retraction, No labored breathing, No respirations, No tactile fremitus, No wheezing, No other Cardiovascular: regular rate and rhythm, nl pulses; No bruits, No diastolic murmur, No edema, No gallop, No irregular rhythm, No jugular venous distention (JVD), No murmurs/extra sounds, No rub, No systolic murmur, No S3, No S4, No other Gastrointestinal: soft, nl liver, spleen, non-tender Musculoskeletal: nl extremities to inspection Extremities: normal pulses, other (left foot wound) 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: PATENT SOLICITOR II-XII intact, nl mental status, nl speech, nl strength Results Results 24hrs Laboratory Tests Test 05/07/18 17:48 05/07/18 20:38 05/08/18 06:04 05/08/18 06:08 Bedside Glucose 112 92 Erythrocyte 110 H Sedimentation Rate C-Reactive Protein 8.7 H Prothrombin Time 14.3 Prothrombin Time 1.1 Ratio INR International 1.10 Normalized Ratio Sodium Level 134 L Potassium Level 3.9 Chloride Level 104 Carbon Dioxide Level 20 L Anion Gap 10 Blood Urea Nitrogen 24 H Creatinine 1.14 Est Glomerular > 60 Filtrat Rate mL/min Glucose Level 108 Calcium Level 9.0 Test 05/08/18 08:35 05/08/18 12:49 Bedside Glucose 115 120 Medications Medication Current Medications IV Flush (NS 3 ml) 3 ml PER PROTOCOL IV ; Start 04/29/18 at 19:00 Acetaminophen/ Hydrocodone Bitart ([place] (5/325)) 2 tab Q6H PRN PO .SEVERE PAIN 7-10 Last administered on 05/01/18at 11:42; Admin Dose 2 TAB; Start 04/29/18 at 19:00 Heparin Sodium (Porcine) (Heparin (5000 Units/1ml)) 5,000 unit Q12 SC Last administered on 05/07/18at 20:42; Admin Dose 5,000 UNIT; Start 04/29/18 at 21:00 Ondansetron HCl (Zofran Inj) 4 mg Q4H PRN IV NAUSEA AND/OR VOMITING Last administered on 05/06/18 00:37; Admin Dose 4 MG; Start 04/30/18 at 05:00 Sodium Hypochlorite (Dakin'S (Dilute )) 1 applic DAILY IRR Last administered on 05/07/18 09:02; Admin Dose 1 APPLIC; Start 04/30/18 at 15:00 Albuterol/ Ipratropium (Duoneb) 3 ml Q4H RESP THERAPY PRN HHN SHORTNESS OF BREATH Last administered on 05/04/18 17:15; Admin Dose 3 ML; Start 04/30/18 at 20:00 Ceftriaxone Sodium 50 ml @ 100 mls/hr Q24H IVPB Last administered on 05/07/18 18:14; Admin Dose 100 MLS/HR; Start 05/02/18 at 17:30 Linezolid (Zyvox) 600 mg BID PO Last administered on 05/07/18 20:39; Admin Dose 600 MG; Start 05/02/18 at 21:00 Docusate Sodium (Colace) 100 mg BID PO Last administered on 05/07/18 20:39; Admin Dose 100 MG; Start 05/02/18 at 21:00 Polyethylene Glycol (Miralax) 17 gm DAILY PO Last administered on 05/03/18 08:00; Admin Dose 17 GM; Start 05/02/18 at 20:30 Metformin HCl (Glucophage) 500 mg BID WITH MEALS PO Last administered on 05/07/18 17:49; Admin Dose 500 MG; Start 05/03/18 at 18:05 Diagnostic Test (Pha) (Accu-Chek) 1 ea AC MEALS AND BEDTIME XX Last adminis tered on 05/08/18 07:30; Admin Dose 1 EA; Start 05/03/18 at 17:35 Miscellaneous Information 1 ea NOTE XX ; Start 05/03/18 at 14:30 Glucose (Glutose) 15 gm Q15M PRN PO DECREASED GLUCOSE; Start 05/03/18 at 14:30 Glucose (Glutose) 22.5 gm Q15M PRN PO DECREASED GLUCOSE; Start 05/03/18 at 14:30 Dextrose (D50w Syringe) 25 ml Q15M PRN IV DECREASED GLUCOSE; Start 05/03/18 at 14:30 Dextrose (D50w Syringe) 50 ml Q15M PRN IV DECREASED GLUCOSE; Start 05/03/18 at 14:30 Glucagon (Glucagen) 1 mg Q15M PRN IM DECREASED GLUCOSE; Start 05/03/18 at 14:30 Glucose (Glutose) 15 gm Q15M PRN BUCCAL DECREASED GLUCOSE; Start 05/03/18 at 14:30 Insulin Aspart (Novolog Insulin Pen) 10 unit WITH MEALS SC Last administered on 05/07/18at 17:50; Admin Dose 10 UNIT; Start 05/04/18 at 17:35 Insulin Glargine (Lantus) 33 units DAILY@2000 SC Last administered on 05/07/18at 20:43; Admin Dose 33 UNITS; Start 05/04/18 at 20:00 Metronidazole (Flagyl) 500 mg Q6 PO Last administered on 05/08/18at 06:56; Admin Dose 500 MG; Start 05/06/18 at 18:00 Pantoprazole (Protonix Tab) 40 mg DAILY@06 PO Last administered on 05/08/18at 06:57; Admin Dose 40 MG; Start 05/07/18 at 06:00 Insulin Aspart (Novolog Insulin Pen) NOVOLOG *MILD* ALGORI... Q4 SC ; Start 05/08/18 at 09:00 KATHERINE DYER MD May 08, 2018 12:55
[2018-05-08] MEDS: ONDANSETRON 4 MG INJ IV PRN (13:06)
--- NOTE | 2018-05-08 15:13 | CONS ---
Assessment/Plan Assessment/Plan Hospital Course (Demo Recall) No acute changes overnight, alert, feels good Wound culture grew VRE E. coli Corynebacterium species and Bacteroides fragilis Antimicrobials: Zyvox Rocephin, Flagyl PHYSICAL EXAMINATION: GENERAL: This is a well-developed, well-nourished, middle-aged man who is awake, in no distress. HEENT: Head is atraumatic, normocephalic. NECK: Supple. CHEST: Rise symmetrical. Breath sounds diminished to bases. HEART: S1, S2. ABDOMEN: Soft. Bowel tones are present. EXTREMITIES: With left foot dressing intact. Assessment: 1. 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 Diabetes 3. Obesity 4. Acute possibly on chronic kidney disease Plan: Remains stable, daptomycin was discontinued secondary to elevated CK, continue local wound care per podiatry recommendations. Patient will require 6-8 weeks of current abx Consultation Date/Type/Reason Admit Date/Time Apr 29, 2018 at 18:18 Initial Consult Date Type of Consult id Date/Time of Note DATE: 05/08/18 TIME: 15:12 Exam/Review of Systems Exam Vitals Vital Signs Date Temp Pulse Resp B/P (MAP) Pulse Ox O2 O2 Flow FiO2 Time Delivery Rate 05/08/18 98.1 89 18 92/46 (61) 97 Room Air 14:42 05/04/18 21 17:16 Intake and Output 05/07/18 05/07/18 05/08/18 1515:00 23:00 07:00 IntakeIntake Total 720 ml 290 ml OutputOutput Total 500 ml 575 ml 500 ml BalanceBalance 220 ml -285 ml -500 ml Results Result Diagram: 05/07/18 0616 05/08/18 0608 Results 24hrs Laboratory Tests Test 05/07/18 17:48 05/07/18 20:38 05/08/18 06:04 05/08/18 06:08 Bedside Glucose 112 92 Erythrocyte 110 H Sedimentation Rate C-Reactive Protein 8.7 H Prothrombin Time 14.3 Prothrombin Time 1.1 Ratio INR International 1.10 Normalized Ratio Sodium Level 134 L Potassium Level 3.9 Chloride Level 104 Carbon Dioxide Level 20 L Anion Gap 10 Blood Urea Nitrogen 24 H Creatinine 1.14 Est Glomerular > 60 Filtrat Rate mL/min Glucose Level 108 Calcium Level 9.0 Test 05/08/18 08:35 05/08/18 12:49 Bedside Glucose 115 120 Medications Medication Current Medications IV Flush (NS 3 ml) 3 ml PER PROTOCOL IV ; Start 04/29/18 at 19:00 Acetaminophen/ Hydrocodone Bitart ([place] (5/325)) 2 tab Q6H PRN PO .SEVERE PAIN 7-10 Last administered on 05/01/18 11:42; Admin Dose 2 TAB; Start 04/29/18 at 19:00 Heparin Sodium (Porcine) (Heparin (5000 Units/1ml)) 5,000 unit Q12 SC Last administered on 05/07/18 20:42; Admin Dose 5,000 UNIT; Start 04/29/18 at 21:00 Ondansetron HCl (Zofran Inj) 4 mg Q4H PRN IV NAUSEA AND/OR VOMITING Last administered on 05/08/18 13:06; Admin Dose 4 MG; Start 04/30/18 at 05:00 Sodium Hypochlorite (Dakin'S (Dilute 40)) 1 applic DAILY IRR Last administered on 05/07/18 09:02; Admin Dose 1 APPLIC; Start 04/30/18 at 15:00 Albuterol/ Ipratropium (Duoneb) 3 ml Q4H RESP THERAPY PRN HHN SHORTNESS OF BREATH Last administered on 05/04/18 17:15; Admin Dose 3 ML; Start 04/30/18 at 20:00 Ceftriaxone Sodium 50 ml @ 100 mls/hr Q24H IVPB Last administered on 05/07/18 18:14; Admin Dose 100 MLS/HR; Start 05/02/18 at 17:30 Linezolid (Zyvox) 600 mg BID PO Last administered on 05/07/18 20:39; Admin Dose 600 MG; Start 05/02/18 at 21:00 Docusate Sodium (Colace) 100 mg BID PO Last administered on 05/07/18 20:39; Admin Dose 100 MG; Start 05/02/18 at 21:00 Polyethylene Glycol (Miralax) 17 gm DAILY PO Last administered on 05/03/18 08:00; Admin Dose 17 GM; Start 05/02/18 at 20:30 Metformin HCl (Glucophage) 500 mg BID WITH MEALS PO Last administered on 3/14/19at 17:49; Admin Dose 500 MG; Start 05/03/18 at 18:05 Diagnostic Test (Pha) (Accu-Chek) 1 ea AC MEALS AND BEDTIME XX Last administered on 05/08/18at 07:30; Admin Dose 1 EA; Start 05/03/18 at 17:35 Miscellaneous Information 1 ea NOTE XX ; Start 05/03/18 at 14:30 Glucose (Glutose) 15 gm Q15M PRN PO DECREASED GLUCOSE; Start 05/03/18 at 14:30 Glucose (Glutose) 22.5 gm Q15M PRN PO DECREASED GLUCOSE; Start 05/03/18 at 14:30 Dextrose (D50w Syringe) 25 ml Q15M PRN IV DECREASED GLUCOSE; Start 05/03/18 at 14:30 Dextrose (D50w Syringe) 50 ml Q15M PRN IV DECREASED GLUCOSE; Start 05/03/18 at 14:30 Glucagon (Glucagen) 1 mg Q15M PRN IM DECREASED GLUCOSE; Start 05/03/18 at 14:30 Glucose (Glutose) 15 gm Q15M PRN BUCCAL DECREASED GLUCOSE; Start 05/03/18 at 14:30 Insulin Aspart (Novolog Insulin Pen) 10 unit WITH MEALS SC Last administered on 05/07/18at 17:50; Admin Dose 10 UNIT; Start 05/04/18 at 17:35 Insulin Glargine (Lantus) 33 units DAILY@2000 SC Last administered on 05/07/18at 20:43; Admin Dose 33 UNITS; Start 05/04/18 at 20:00 Metronidazole (Flagyl) 500 mg Q6 PO Last administered on 05/08/18at 06:56; Admin Dose 500 MG; Start 05/06/18 at 18:00 Pantoprazole (Protonix Tab) 40 mg DAILY@06 PO Last administered on 05/08/18at 06:57; Admin Dose 40 MG; Start 05/07/18 at 06:00 Insulin Aspart (Novolog Insulin Pen) NOVOLOG *MILD* ALGORI... Q4 SC ; Start 05/08/18 at 09:00 KITTY DUMONT NP May 08, 2018 15:13
[2018-05-08] MEDS: CEFTRIAXONE 1 GM/50 ML (PMX) 50 ML IVPB SCH (17:19)
--- NOTE | 2018-05-08 17:52 | PREAC ---
Date/Time of Note Date/Time of Note DATE: 05/08/18 TIME: 17:49 Anesthesia Eval and Record Evaluation Time Pre-Procedure Interview DATE: 05/08/18 TIME: 17:49 Age 57 Sex male NPO: 8 hrs Preoperative diagnosis Diabetic Left Foot and Osteomyelitis Planned procedure I & D of Left Foot and Arthrodesis, 5 the finger Amputation Past Medical History Past Medical History: Includes Cardio: HTN Endo: Diabetes Heme: Anemia Surgery & Anesthesia Issues No known issue Meds Anticoagulation: No Beta Celeste within 24 hr: No Reason Beta Celeste not given: Pt. not on B-Celeste Reported Medications Lisinopril* (Lisinopril*) 20 Mg Tablet, 20 MG PO DAILY, #30 TAB 04/29/18 Glipizide* (Glipizide*) 10 Mg Tablet, 10 MG PO AC BREAKFAST DINNER, TAB 04/29/18 Ibuprofen* (Ibuprofen*) 800 Mg Tablet, 800 MG PO Q6H PRN for PAIN, TAB 04/29/18 Insulin Glargine,Hum.rec.anlog (Kayla Feliciano U-100) 100 Unit/1 Ml Insuln.pen, UNIT SC SLIDING SCALE, EA 04/29/18 Simvastatin* (Zocor*) 20 Mg Tablet, 20 MG PO QHS, #30 TAB 04/29/18 Fluconazole* (Fluconazole*) 200 Mg Tablet, 400 MG PO DAILY, TAB 04/29/18 Levofloxacin* (Levofloxacin*) 750 Mg Tablet, 750 MG PO DAILY, TAB 04/29/18 Current Medications IV Flush (NS 3 ml) 3 ml PER PROTOCOL IV ; Start 04/29/18 at 19:00 Acetaminophen/ Hydrocodone Bitart ([place] (5/325)) 2 tab Q6H PRN PO .SEVERE PAIN 7-10 Last administered on 05/01/18at 11:42; Admin Dose 2 TAB; Start 04/29/18 at 19:00 Heparin Sodium (Porcine) (Heparin (5000 Units/1ml)) 5,000 unit Q12 SC Last administered on 05/07/18at 20:42; Admin Dose 5,000 UNIT; Start 04/29/18 at 21:00 Ondansetron HCl (Zofran Inj) 4 mg Q4H PRN IV NAUSEA AND/OR VOMITING Last administered on 05/08/18at 13:06; Admin Dose 4 MG; Start 04/30/18 at 05:00 Sodium Hypochlorite (Dakin'S (Dilute )) 1 applic DAILY IRR Last administered on 05/07/18at 09:02; Admin Dose 1 APPLIC; Start 04/30/18 at 15:00 Albuterol/ Ipratropium (Duoneb) 3 ml Q4H RESP THERAPY PRN HHN SHORTNESS OF BREATH Last administered on 05/04/18 17:15; Admin Dose 3 ML; Start 04/30/18 at 20:00 Ceftriaxone Sodium 50 ml @ 100 mls/hr Q24H IVPB Last administered on 05/08/18 17:19; Admin Dose 100 MLS/HR; Start 05/02/18 at 17:30 Linezolid (Zyvox) 600 mg BID PO Last administered on 05/07/18at 20:39; Admin Dose 600 MG; Start 05/02/18 at 21:00 Docusate Sodium (Colace) 100 mg BID PO Last administered on 05/07/18 20:39; Admin Dose 100 MG; Start 05/02/18 at 21:00 Polyethylene Glycol (Miralax) 17 gm DAILY PO Last administered on 05/03/18at 08:00; Admin Dose 17 GM; Start 05/02/18 at 20:30 Metformin HCl (Glucophage) 500 mg BID WITH MEALS PO Last administered on 05/07/18at 17:49; Admin Dose 500 MG; Start 05/03/18 at 18:05 Diagnostic Test (Pha) (Accu-Chek) 1 ea AC MEALS AND BEDTIME XX Last administered on 05/08/18at 17:13; Admin Dose 1 EA; Start 05/03/18 at 17:35 Miscellaneous Information 1 ea NOTE XX ; Start 05/03/18 at 14:30 Glucose (Glutose) 15 gm Q15M PRN PO DECREASED GLUCOSE; Start 05/03/18 at 14:30 Glucose (Glutose) 22.5 gm Q15M PRN PO DECREASED GLUCOSE; Start 05/03/18 at 14:30 Dextrose (D50w Syringe) 25 ml Q15M PRN IV DECREASED GLUCOSE; Start 05/03/18 at 14:30 Dextrose (D50w Syringe) 50 ml Q15M PRN IV DECREASED GLUCOSE; Start 05/03/18 at 14:30 Glucagon (Glucagen) 1 mg Q15M PRN IM DECREASED GLUCOSE; Start 05/03/18 at 14:30 Glucose (Glutose) 15 gm Q15M PRN BUCCAL DECREASED GLUCOSE; Start 05/03/18 at 14:30 Insulin Aspart (Novolog Insulin Pen) 10 unit WITH MEALS SC Last administered on 05/07/18at 17:50; Admin Dose 10 UNIT; Start 05/04/18 at 17:35 Insulin Glargine (Lantus) 33 units DAILY@2000 SC Last administered on 05/07/18at 20:43; Admin Dose 33 UNITS; Start 05/04/18 at 20:00 Metronidazole (Flagyl) 500 mg Q6 PO Last administered on 05/08/18at 06:56; Admin Dose 500 MG; Start 05/06/18 at 18:00 Pantoprazole (Protonix Tab) 40 mg DAILY@06 PO Last administered on 05/08/18at 06:57; Admin Dose 40 MG; Start 05/07/18 at 06:00 Insulin Aspart (Novolog Insulin Pen) NOVOLOG *MILD* ALGORI... Q4 SC ; Start 04/24 07/12 at 09:00 IV Flush (NS 10 ml) 10 ml PRN PRN IV IV PROTOCOL; Start 05/08/18 at 15:30 Meds reviewed: Yes Allergies Coded Allergies: No Known Allergy (Unverified , 04/29/18) Allergies Reviewed: Yes Labs/Studies Labs Reviewed: Reviewed by anesthesiologist Result Diagram: 05/07/18 0616 05/08/18 0608 Laboratory Tests 05/08/18 06:08 test: N/A Studies: ECG (n/a), CXR (n/a) Pre-procedure Exam Last vitals Vital Signs Date Temp Pulse Resp B/P (MAP) Pulse Ox O2 O2 Flow FiO2 Time Delivery Rate 05/08/18 98.1 89 18 92/46 (61) 97 Room Air 14:42 05/04/18 21 17:16 Airway: Adequate mouth opening, Adequate thyromental dist Mallampati: Mallampati II Teeth: Normal Lung: Normal Heart: Normal ASA Physical Status ASA physical status: 3 Emergency: None Planned Anesthetic General/MAC: LMA Nerve block: Femoral (left), Sciatic (left) Planned Pain Management Single shot nerve block, Parenteral pain med Pre-operative Attestations Prior to commencing anesthesia and surgery, the patient was re-evaluated, there was verification of: *The patient's identity *The results of appropriate recent lab work and preoperative vital signs *The above evaluation not changing prior to induction *Anesthetic plan, risk benefits, alternative and complications discussed with patient/family; questions answered; patient/family understands, accepts and wishes to proceed. PARISA MELCHOR MD May 08, 2018 17:52
[2018-05-08] MEDS ORDERED: PROPOFOL 100 ML ONE (17:57)
[2018-05-08] MEDS ORDERED: CEFAZOLIN 1 GM INJ ONE (17:57)
[2018-05-08] MEDS ORDERED: ROCURONIUM 50 MG INJ ONE (17:57)
--- NOTE | 2018-05-08 17:57 | HPN ---
Date/Time of Note Date/Time of Note DATE: 05/08/18 TIME: 17:57 Interval H&P Admission Note Pt. seen H&P reviewed: No system changes NIMISHA HENNING DPM May 08, 2018 17:57
[2018-05-08] MEDS ORDERED: MIDAZOLAM 1 MG/ML 2 ML INJ ONE (17:58)
[2018-05-08] MEDS ORDERED: ROPIVACAINE 0.5 % 30 ML VIAL ONE (17:58)
[2018-05-08] MEDS ORDERED: MEPERIDINE 25 MG INJ IV PRN ×2 (18:00→19:00)
[2018-05-08] MEDS ORDERED: hydrALAzine 20 MG INJ IV PRN ×2 (18:00→19:00)
[2018-05-08] MEDS ORDERED: OXYCODONE/ACETAMINOPHEN (5/325) TAB PO PRN ×3 (18:00→19:00)
[2018-05-08] MEDS ORDERED: LABETALOL HCL 20MG INJ IV PRN ×2 (18:00→19:00)
[2018-05-08] MEDS ORDERED: ONDANSETRON 4 MG INJ IV PRN ×2 (18:00→19:00)
[2018-05-08] MEDS ORDERED: HYDROmorphONE 1 MG/5 ML IV SYRINGE IV PRN ×6 (18:00→19:00)
[2018-05-08] MEDS ORDERED: EPHEDrine SULFATE 50 MG/5 ML SYG IV PRN ×2 (18:00→19:00)
[2018-05-08] MEDS ORDERED: METOCLOPRAMIDE 10 MG INJ IV PRN ×2 (18:00→19:00)
[2018-05-08] MEDS ORDERED: DIPHENHYDRAMINE 50 MG INJ IV PRN ×2 (18:00→19:00)
[2018-05-08] MEDS ORDERED: FENTAnyl 50 MCG/ML VIAL IV PRN ×6 (18:00→19:00)
[2018-05-08] MEDS ORDERED: PHENYLephrine (100 MCG/ML) 10ML SYG ONE (18:26)
[2018-05-08] MEDS ORDERED: BACITRACIN 50000 UNITS INJ ONE (18:44)
[2018-05-08] MEDS ORDERED: METOCLOPRAMIDE 10 MG INJ ONE (18:55)
[2018-05-08] MEDS ORDERED: ONDANSETRON 4 MG INJ ONE (18:55)
[2018-05-08] MEDS ORDERED: DEXAMETHASONE 4 MG/ML 5 ML INJ ONE (18:55)
[2018-05-08] MEDS ORDERED: NEOSTIGMINE 3 MG/3 ML SYRINGE ONE (19:48)
[2018-05-08] MEDS ORDERED: VANCOMYCIN 1 GM INJ ONE (19:48)
[2018-05-08] MEDS ORDERED: GLYCOPYRROLATE 0.4 MG INJ ONE (19:48)
--- NOTE | 2018-05-08 20:30 | PAC ---
Date/Time of Note Date/Time of Note DATE: 05/08/18 TIME: 20:30 Post-Anesthesia Notes Post-Anesthesia Note Last documented vital signs Vital Signs Date Temp Pulse Resp B/P (MAP) Pulse Ox O2 O2 Flow FiO2 Time Delivery Rate 05/08/18 98.1 89 18 92/46 (61) 97 Room Air 20:42 05/04/18 21 17:16 Activity: WNL Respiratory function: WNL Cardiovascular function: WNL Mental status: Baseline Pain reasonably controlled: Yes Hydration appropriate: Yes Nausea/Vomiting absent: Yes PARISA MELCHOR MD May 08, 2018 20:30
--- NOTE | 2018-05-08 20:32 | SIPON ---
Date/Time of Note Date/Time of Note DATE: 05/08/18 TIME: 20:31 Operative Report Preoperative Diagnosis Left foot diabetic ulcer Left foot osteomyelitis Left foot cellulitis Left 5th digit gangrene DM2 with peripheral neuropathy Postoperative Diagnosis Left foot diabetic ulcer Left foot osteomyelitis Left foot cellulitis Left 5th digit gangrene DM2 with peripheral neuropathy Operation/Procedure Performed Left foot excisional debridement Left 2nd metatarsal partial resection Left 5th digit amputation Left 1st MPJ pinning Application of allograft Delayed primary closure Surgeon Mick Henning DPM fitness assistant Garfield Perez DPM Anesthesia: general Estimated blood loss: 10 - 50 ml's Transfusion Required none Specimen Left 5th digit Grafts/Implants Integra bilayer allograft 45 k-wire Complications none MICK HENNING DPM May 08, 2018 20:32
--- NOTE | 2018-05-08 20:43 | OPR ---
Date/Time of Note Date/Time of Note DATE: 05/08/18 TIME: 20:43 Operative Report Preoperative Diagnosis Left foot diabetic ulcer Left foot osteomyelitis Left foot cellulitis Left 5th digit gangrene DM2 with peripheral neuropathy Postoperative Diagnosis Left foot diabetic ulcer Left foot osteomyelitis Left foot cellulitis Left 5th digit gangrene DM2 with peripheral neuropathy Operation/Procedure Performed Left foot excisional debridement Left 2nd metatarsal partial resection Left 5th digit amputation Left 1st MPJ pinning Application of allograft Application of antibiotic spacer Delayed primary closure Surgeon Mick Henning DPM Rounding And Backing Machine Operator Garfield Perez DPM Anesthesia Type: general Estimated Blood Loss: 10 - 50 ml's Transfusion none Specimen Left 5th digit Grafts/Implants Integra bilayer allograft 45 k-wire Complications none Indications 57 y/o diabetic M patient with chronic ulcerations and osteomyelitis to the left foot. Patient had failed local wound care and wound VAC therapy and there is gangrene to the left 5th digit with residual infection to the foot. Discussed with the patient that he is at risk of amputations due to the severity of the ulcerations. Addressed all of patient's questions and concerns no promises or guarantees were given. Patient is amenable to surgical intervention. Procedure Description Patient was brought into the OR and placed on the OR table in the supine position. Patient was given a pre-operative left lower extremity block by the anesthesia team. A well padded calf tourniquet was applied to the left lower extremity. The left lower extremity was scrubbed, prepped, and draped in the usual aseptic manner. Attention was directed to the left 5th digit gangrene area where the digit was disarticulated from the MPJ, there was purulent drainage appreciated approximately 2mL and was irrigated with antibiotic infused saline once it was amputated. There was residual necrotic tissue and excisional debridement of skin/subQ/muscle/fascia using a scalpel and pickup/scissors. Ulcer measurement was 2.5 x 2.5 x 0.5cm, less than 20cm2 of area was debrided. Necrotic, fibrotic and non-viable tissue was removed. Further irrigation was utilized and the 5th digit was sent for pathology specimen. Next, attention was directed to the dorsal foot ulceration site where an incision was carried out toward the 2nd metatarsal area which exposed the necrotic bone and approximately 2mL of purulence to the 2nd MPJ area. Using a sagittal saw the diseased portion of the 2nd metatarsal was resected. Further irrigation with antibiotic infused saline was used at the ulcer site. Excisional debridement of skin/subQ/muscle/fascia of the ulceration site which measured 4 x 2 x 1.5cm. Necrotic bone, non-viable tissue, and purulence was removed from the ulceration site. Less than 20cm2 of area was debrided. Copious antibiotic infuse saline irrigation was used at the surgical site. Tourniquet was inflated Focus was directed to the plantar aspect of the hallux ulceration site where excisional debridement of skin/subQ/muscle/tendon/bone was performed using a scalpel and scissor/pickup. Necrotic bone, muscle, and fibrotic tissue was removed from the ulcer site. Ulcer measurement was 5 x 2 x 1.0cm, less than 20cm2 of area was debrided. Copious irrigation with antibiotic infused saline to the ulceration site. Utilizing a wire uke driver three 0.045 k-wires were pinned across the 1st MPJ to stabilize the hallux. X-rays confirmed satisfactory alignment. Tourniquet deflated Excisional debridement of the medial and lateral aspects of digits 2-4 were performed of skin/subQ. Medial 2nd digit ulcer measured 0.3 x 0.4 x 0.1cm, lateral 2nd digit 0.4 x 0.4 x 0.1cm, medial 3rd digit measured 0.4 x 0.4 x 0.1 lateral 3rd digit measured 0.4 x 0.4 x 0.1, medial 4th digit measured 0.5 x 0.5 x 0.1cm lateral 4th digit measured 0.4 x 0.5 x 0.1cm. Fibrotic tissue and biofilm was removed from the wound sites using a curette. Less than 20cm2 of area was debrided. Using 3-0 nylon the skin edges of the surgical site of the 5th digit, dorsal foot and plantar hallux were re-approximated to facilitate a delayed primary closure, then a skin allograft was then applied and secured to the remaining portion of the ulcer sites of plantar hallux, dorsal foot and left 5th digit amputation site. Xeroform was applied to the graft sites, then an antibiotic spacer was applied to the plantar hallux and dorsal foot. Dry sterile dressings were applied and a well padded below knee short leg cast applied to the left lower extremity. Patient was transferred to PACU with vital signs stable and neurovascular status intact. MICK HENNING DPM May 08, 2018 20:43
[2018-05-08] MEDS: INSULIN GLARGINE [LANTus] (100 UNITS/ML) SYG SC SCH (21:59)
[2018-05-09] MEDS ORDERED: INSULIN ASPART [NOVOLOG] 3 ML PEN SC SCH (01:00)
[2018-05-09] MEDS: ACCU-CHEK XX SCH ×5 (01:03→20:27)
[2018-05-09 02:45] VITALS: BP 110/65; PULSE 100; RESP 18
[2018-05-09] MEDS: PANTOPRAZOLE (EC) 40 MG TAB PO SCH ×2 (05:17→08:07)
[2018-05-09] MEDS: metroNIDAZOLE 500 MG TAB PO SCH ×4 (05:17→23:43)
[2018-05-09] MEDS ORDERED: PANTOPRAZOLE 40 MG INJ IV SCH (06:00)
[2018-05-09 08:00] VITALS: BP 106/59; PULSE 90; RESP 17
[2018-05-09] MEDS: INSULIN ASPART [NOVOLOG] 3 ML PEN SC SCH ×7 (08:04→20:18)
[2018-05-09] MEDS: HEPARIN 5,000 UNIT/1 ML VIAL SC SCH ×2 (08:06→20:16)
[2018-05-09] MEDS: metFORMIN 500 MG TAB PO SCH ×2 (08:07→17:26)
[2018-05-09] MEDS: DOCUSATE SODIUM 100 MG CAP PO SCH ×2 (08:07→20:16)
[2018-05-09] MEDS: ZYVOX 600 MG TAB PO SCH ×2 (08:07→20:15)
[2018-05-09] MEDS: SODIUM HYPOCHLORITE (1/40) 1 APPLIC BTL IRR SCH (08:08)
[2018-05-09] MEDS: FLUCONAZOLE 200 MG TAB PO SCH (08:11)
[2018-05-09] MEDS: POLYETHYLENE GLYCOL 17 GM PACKET PO SCH (08:14)
--- NOTE | 2018-05-09 11:38 | PN ---
Date/Time of Note Date/Time of Note DATE: 05/09/18 TIME: 11:38 Objective Vitals Vital Signs Date Temp Pulse Resp B/P (MAP) Pulse Ox O2 O2 Flow FiO2 Time Delivery Rate 05/09/18 98.1 90 17 106/59 95 Room Air 08:00 (75) 05/09/18 2.0 04:48 Intake and Output 05/08/18 05/08/18 05/09/18 1515:00 23:00 07:00 IntakeIntake Total 850 ml OutputOutput Total 350 ml 600 ml BalanceBalance 500 ml -600 ml Results Result Diagram: 05/07/18 0616 05/09/18 0529 Medications Medications Current Medications IV Flush (NS 3 ml) 3 ml PER PROTOCOL IV ; Start 04/29/18 at 19:00 Acetaminophen/ Hydrocodone Bitart ([place] (5/325)) 2 tab Q6H PRN PO .SEVERE PAIN 7-10 Last administered on 05/01/18 11:42; Admin Dose 2 TAB; Start 04/29/18 at 19:00 Heparin Sodium (Porcine) (Heparin (5000 Units/1ml)) 5,000 unit Q12 SC Last administered on 05/09/18 08:06; Admin Dose 5,000 UNIT; Start 04/29/18 at 21:00 Ondansetron HCl (Zofran Inj) 4 mg Q4H PRN IV NAUSEA AND/OR VOMITING Last administered on 05/08/18at 13:06; Admin Dose 4 MG; Start 04/30/18 at 05:00 Sodium Hypochlorite (Dakin'S (Dilute 1/40)) 1 applic DAILY IRR Last administer ed on 05/09/18at 08:08; Admin Dose 1 APPLIC; Start 04/30/18 at 15:00 Albuterol/ Ipratropium (Duoneb) 3 ml Q4H RESP THERAPY PRN HHN SHORTNESS OF BREATH Last administered on 05/04/18 17:15; Admin Dose 3 ML; Start 04/30/18 at 20:00 Ceftriaxone Sodium 50 ml @ 100 mls/hr Q24H IVPB Last administered on 05/08/18 17:19; Admin Dose 100 MLS/HR; Start 05/02/18 at 17:30 Linezolid (Zyvox) 600 mg BID PO Last administered on 05/09/18 08:07; Admin Dose 600 MG; Start 05/02/18 at 21:00 Docusate Sodium (Colace) 100 mg BID PO Last administered on 05/09/18at 08:07; Admin Dose 100 MG; Start 05/02/18 at 21:00 Polyethylene Glycol (Miralax) 17 gm DAILY PO Last administered on 05/03/18 08:00; Admin Dose 17 GM; Start 05/02/18 at 20:30 Metformin HCl (Glucophage) 500 mg BID WITH MEALS PO Last administered on 08:07; Admin Dose 500 MG; Start 05/03/18 at 18:05 Diagnostic Test (Pha) (Accu-Chek) 1 ea AC MEALS AND BEDTIME XX Last administered on 05/09/18 08:07; Admin Dose 1 EA; Start 05/03/18 at 17:35 Miscellaneous Information 1 ea NOTE XX ; Start 05/03/18 at 14:30 Glucose (Glutose) 15 gm Q15M PRN PO DECREASED GLUCOSE; Start 05/03/18 at 14:30 Glucose (Glutose) 22.5 gm Q15M PRN PO DECREASED GLUCOSE; Start 05/03/18 at 14:30 Dextrose (D50w Syringe) 25 ml Q15M PRN IV DECREASED GLUCOSE; Start 05/03/18 at 14:30 Dextrose (D50w Syringe) 50 ml Q15M PRN IV DECREASED GLUCOSE; Start 05/03/18 at 14:30 Glucagon (Glucagen) 1 mg Q15M PRN IM DECREASED GLUCOSE; Start 05/03/18 at 14:30 Glucose (Glutose) 15 gm Q15M PRN BUCCAL DECREASED GLUCOSE; Start 05/03/18 at 14:30 Insulin Aspart (Novolog Insulin Pen) 10 unit WITH MEALS SC Last administered on 05/09/18at 08:04; Admin Dose 10 UNIT; Start 05/04/18 at 17:35 Insulin Glargine (Lantus) 33 units DAILY@2000 SC Last administered on 05/08/18at 21:59; Admin Dose 33 UNITS; Start 05/04/18 at 20:00 Metronidazole (Flagyl) 500 mg Q6 PO Last administered on 05/09/18 05:17; Admin Dose 500 MG; Start 05/06/18 at 18:00 IV Flush (NS 10 ml) 10 ml PRN PRN IV IV PROTOCOL; Start 05/08/18 at 15:30 Fluconazole (Diflucan) 200 mg DAILY PO Last administered on 05/09/18at 08:11; Admin Dose 200 MG; Start 05/09/18 at 09:00 Insulin Aspart (Novolog Insulin Pen) NOVOLOG *MILD* ALGORITHM WITH MEALS BEDTIME SC Last administered on 05/09/18at 08:05; Admin Dose 5 UNIT; Start 05/09/18 at 08:00 Diagnostic Test (Pha) (Accu-Chek) 1 ea 02 XX ; Start 05/09/18 at 02:00 Pantoprazole (Protonix Tab) 40 mg DAILY PO Last administered on 05/09/18at 08:07; Admin Dose 40 MG; Start 05/09/18 at 06:00 VTE [place] [facility] [place]: 12 [place] [facility] [place] Yes Lines/Catheters IV Catheter Type: Juarez in Place: No Assessment/Plan Hospital Course Subjective No acute changes, patient doing well after second foot surgery Objective Physical exam General: Patient is laying in bed and answers questions appropriately Mentation: Patient is alert and oriented 4, Head: Normocephalic atraumatic Eyes: EOMI, pupils reactive to light Neck: Supple, nontender, midline Respiratory: Clear to auscultation bilaterally Cardiovascular: regular rate, no obvious murmurs Gastrointestinal: non-tender to palpation, bowel sounds heard. 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: Moves all extremities spontaneously Skin: Left foot bandaged, CDI, casted Assessment and plan Left foot wound with osteomyelitis -Status post multiple debridements and surgical correction, -Patient refusing amputation per podiatry -We will need 6-8 weeks of IV antibiotics per ID -ID consulted -Podiatry recognitions appreciated Acute kidney injury -Monitor, resolved Diabetes mellitus -Insulin Dyslipidemia -Continue home meds Disposition -Patient unable to care for herself at home as he lives alone, will get a referral for rehab versus sniff placement. -Stat renal panel for electrolyte abnormalities as patient did not have any electrolyte abnormalities in the previous lab draws JANELL YOO May 09, 2018 11:38
[2018-05-09 14:16] VITALS: BP 107/58; PULSE 85; RESP 18
--- NOTE | 2018-05-09 15:34 | CONS ---
Assessment/Plan Assessment/Plan Hospital Course (Demo Recall) ID PROGRESS NOTE CURRENT ABX: DAY # Zyvox + Flagyl + Ceftriaxone + Diflucan 05/09/18 1105 05/09/18 1107 24H INTERVAL SUMMARY * Awake, alert, oriented, no fevers, doing well, family visiting, no c/o * DC planning in process DIAGNOSTIC IMAGING * 05/08/18 left foot xr: IMPRESSION: * 1. 2 K-wires are present traversing the first toe. * 2. Amputation of the second metatarsal distal diaphysis and second proximal phalanx base. * 3. Fifth toe amputation. * 4. New changes around the third metatarsal phalangeal joint and fourth metatarsal head are concerning for osteomyelitis. * 5. MRI may be helpful for further evaluation. MICRO/OTHER * 05/01/18 PATHOLOGY REPORT: Left foot tissue: -- Gangrenous necrosis of skin and subcutaneous tissue. -- No bone is microscopically identified. -- There is no evidence of malignancy. * 05/01/18 LEFT FOOT: ANAEROBIC CULTURE Final Organism 1 BACTEROIDES FRAGILIS * 05/01/18 LEFT FOOT: WOUND CULTURE Final Organism 1 VANCO RESISTANT ENTEROCOCCUS QUANTITY 1+ . MULTI DRUG RESISTANT ORGANISM VRE M.I.C. RX --------- --- AMPICILLIN >=32 R GENTAMICIN 120 S LINEZOLID 2 S PENICILLIN-G >=64 R QUINUPRISTIN/DALFOPRISTIN 1 S STREPTOMYCIN 300 S VANCOMYCIN >=32 R * 04/29/18 BCX (-) * 04/29/18: LEFT FOOT WOUND CULTURE Final Organism 1 ESCHERICHIA COLI QUANTITY 2+ Organism 2 ENTEROCOCCUS SPECIES QUANTITY 3+ Organism 3 CORYNEBACTERIUM SPECIES QUANTITY 3+ E COLI ENT SPS M.I.C. RX M.I.C. RX --------- --- --------- --- AMPICILLIN 4 S >=32 R CEFAZOLIN R CEFOTAXIME S CIPROFLOXACIN >=4 R GENTAMICIN <=1 S LEVOFLOXACIN >=8 R PENICILLIN-G >=64 R VANCOMYCIN <=0.5 S TOBRAMYCIN <=1 S TRIMETHOPRIM/SULFAMETHOXAZOLE <=20 S CORYN SPS Zone Size RX --------- --- * AMPICILLIN S * CEFAZOLIN S * CEFOTAXIME S * CEFUROXIME S * CIPROFLOXACIN R * CLINDAMYCIN S * ERYTHROMYCIN S * PENICILLIN S * VANCOMYCIN S PHYSICAL EXAMINATION: GENERAL: VSS HEENT: AT, NC, anicteric NECK: Supple, CHEST: Equal chest rise bilaterally, without dyspnea on observation HEART: Pulse RRR ABDOMEN: Soft / NT EXTREMITIES: Warm, dry -> Left foot/leg wrapped DSG C/D/I SKIN: No rash, no diaphoresis ID ASSESSMENT 57 yo M admit with: 1. 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 Diabetes 3. Obesity 4. Acute possibly on chronic kidney disease ABX ALLERGIES: KNDA INVASIVES: PIV CURRENT ABX: DAY # Zyvox + Flagyl + Ceftriaxone + Diflucan ID RECOMMENDATIONS/PLAN: 1. Continue current ABX per ID COLLEAGUE: * CEFTRIAXONE=> E.coli * FLAGYL => Bacteroides * ZYVOX=> VRE * Daptomycin was discontinued secondary to elevated CK, continue local wound care per podiatry recommendations. Patient will require 6-8 weeks of current abx * NOTED: Baseline CPK mile elevated at 341 in setting acute diabetic foot infection == likely related to myositis at sight of infection and not likely due to DAPTO. * Daptomycin remains a viable option as do not have to stop Daptomycin unless weekly monitoring of CPK rises to > 1,000 with symptoms. 2. ZYVOX prior authorization FORM on chart completed by myself today. `````````````````````````````````````````````````````````````````` REFERENCE [email or web address] Indications: CUBICIN and CUBICIN RF are indicated for the treatment of adult and pediatric patients (1 to 17 years of age) with complicated skin and skin structure infections (cSSSI) caused by susceptible isolates of the following Gram-positive bacteria: Staphylococcus aureus (including methicillin-resistant isolates), Streptococcus pyogenes, Streptococcus agalactiae, Streptococcus dysgalactiae subspecies equisimilis, and Enterococcus faecalis (vancomycin- susceptible isolates only). * Selected Important Safety Information * Myopathy and rhabdomyolysis have been reported with CUBICIN use. Monitor for muscle pain or weakness, particularly of the distal extremities. Monitor creatine phosphokinase (CPK) levels weekly and more frequently in patients with CPK elevations while on CUBICIN or CUBICIN RF treatment and in those who received recent prior or concomitant HMG-CoA reductase inhibitors. In patients with renal impairment, monitor renal function and CPK levels more than once weekly. Discontinue CUBICIN or CUBICIN RF in patients with unexplained signs and symptoms of myopathy with CPK levels >1,000 U/L (~5 ULN), and in patients without symptoms and CPK levels >2,000 U/L (=10 ULN). In addition, consider temporarily suspending agents associated with rhabdomyolysis, such as HMG-CoA reductase inhibitors. * ````````````````````````````````````````````````````` ```````````````````````````````````````````````````````````````````````````````````````````````````` ``````````` Consultation Date/Type/Reason Admit Date/Time Apr 29, 2018 at 18:18 Initial Consult Date Date/Time of Note DATE: 05/09/18 TIME: 14:51 Exam/Review of Systems Exam Vitals Vital Signs Date Temp Pulse Resp B/P (MAP) Pulse Ox O2 O2 Flow FiO2 Time Delivery Rate 05/09/18 98.0 85 18 107/58 97 Room Air 14:16 (74) 05/09/18 2.0 04:48 Intake and Output 05/08/18 05/08/18 05/09/18 1515:00 23:00 07:00 IntakeIntake Total 850 ml OutputOutput Total 350 ml 600 ml BalanceBalance 500 ml -600 ml Results Result Diagram: 05/09/18 1105 05/09/18 1107 Results 24hrs Laboratory Tests Test 05/08/18 17:04 05/08/18 21:57 05/09/18 05:29 05/09/18 07:57 Bedside Glucose 124 159 325 H Sodium Level 136 Potassium Level 5.5 H Chloride Level 108 Carbon Dioxide Level 14 L Anion Gap 14 H Blood Urea Nitrogen 29 H Creatinine 1.09 Est Glomerular > 60 Filtrat Rate mL/min Glucose Level 324 #H Calcium Level 8.8 Test 05/09/18 11:05 05/09/18 11:07 05/09/18 12:11 White Blood Count 12.9 #H Red Blood Count 3.12 L Hemoglobin 8.7 L Hematocrit 27.1 L Mean Corpuscular 86.9 Volume Mean Corpuscular 27.9 L Hemoglobin Mean Corpuscular 32.1 Hemoglobin Concent Red Cell 12.9 Distribution Width Platelet Count 332 Mean Platelet Volume 9.3 Immature 1.100 H Granulocytes % Neutrophils % 84.9 H Lymphocytes % 7.8 L Monocytes % 6.0 Eosinophils % 0.0 Basophils % 0.2 Nucleated Red Blood 0.0 Cells % Immature 0.140 H Granulocytes # Neutrophils # 11.0 H Lymphocytes # 1.0 Monocytes # 0.8 Eosinophils # 0.0 Basophils # 0.0 Nucleated Red Blood 0.0 Cells # Sodium Level 129 L Potassium Level 4.5 Chloride Level 102 Carbon Dioxide Level 16 L Anion Gap 11 Blood Urea Nitrogen 31 H Creatinine 1.18 Glucose Level 384 H Calcium Level 8.7 Phosphorus Level 3.6 Albumin 3.0 L Bedside Glucose 399 H Medications Medication Current Medications IV Flush (NS 3 ml) 3 ml PER PROTOCOL IV ; Start 04/29/18 at 19:00 Acetaminophen/ Hydrocodone Bitart ([place] (5/325)) 2 tab Q6H PRN PO .SEVERE PAIN 7-10 Last administered on 05/01/18at 11:42; Admin Dose 2 TAB; Start 04/29/18 at 19:00 Heparin Sodium (Porcine) (Heparin (5000 Units/1ml)) 5,000 unit Q12 SC Last administered on 05/09/18at 08:06; Admin Dose 5,000 UNIT; Start 04/29/18 at 21:00 Ondansetron HCl (Zofran Inj) 4 mg Q4H PRN IV NAUSEA AND/OR VOMITING Last administered on 05/08/18 13:06; Admin Dose 4 MG; Start 04/30/18 at 05:00 Sodium Hypochlorite (Dakin'S (Dilute )) 1 applic DAILY IRR Last administered on 05/09/18 08:08; Admin Dose 1 APPLIC; Start 04/30/18 at 15:00 Albuterol/ Ipratropium (Duoneb) 3 ml Q4H RESP THERAPY PRN HHN SHORTNESS OF BREATH Last administered on 05/04/18 17:15; Admin Dose 3 ML; Start 04/30/18 at 20:00 Ceftriaxone Sodium 50 ml @ 100 mls/hr Q24H IVPB Last administered on 05/08/18 17:19; Admin Dose 100 MLS/HR; Start 05/02/18 at 17:30 Linezolid (Zyvox) 600 mg BID PO Last administered on 05/09/18 08:07; Admin Dose 600 MG; Start 05/02/18 at 21:00 Docusate Sodium (Colace) 100 mg BID PO Last administered on 05/09/18 08:07; Admin Dose 100 MG; Start 05/02/18 at 21:00 Polyethylene Glycol (Miralax) 17 gm DAILY PO Last administered on 05/03/18 08:00; Admin Dose 17 GM; Start 05/02/18 at 20:30 Metformin HCl (Glucophage) 500 mg BID WITH MEALS PO Last administered on 05/09/18 08:07; Admin Dose 500 MG; Start 05/03/18 at 18:05 Diagnostic Test (Pha) (Accu-Chek) 1 ea AC MEALS AND BEDTIME XX Last administered on 05/09/18at 12:14; Admin Dose 1 EA; Start 05/03/18 at 17:35 Miscellaneous Information 1 ea NOTE XX ; Start 05/03/18 at 14:30 Glucose (Glutose) 15 gm Q15M PRN PO DECREASED GLUCOSE; Start 05/03/18 at 14:30 Glucose (Glutose) 22.5 gm Q15M PRN PO DECREASED GLUCOSE; Start 05/03/18 at 14:30 Dextrose (D50w Syringe) 25 ml Q15M PRN IV DECREASED GLUCOSE; Start 05/03/18 at 14:30 Dextrose (D50w Syringe) 50 ml Q15M PRN IV DECREASED GLUCOSE; Start 05/03/18 at 14:30 Glucagon (Glucagen) 1 mg Q15M PRN IM DECREASED GLUCOSE; Start 05/03/18 at 14:30 Glucose (Glutose) 15 gm Q15M PRN BUCCAL DECREASED GLUCOSE; Start 05/03/18 at 14:30 Insulin Aspart (Novolog Insulin Pen) 10 unit WITH MEALS SC Last administered on 05/09/18 12:13; Admin Dose 10 UNIT; Start 05/04/18 at 17:35 Insulin Glargine (Lantus) 33 units DAILY@2000 SC Last administered on 05/08/18at 21:59; Admin Dose 33 UNITS; Start 05/04/18 at 20:00 Metronidazole (Flagyl) 500 mg Q6 PO Last administered on 05/09/18at 12:14; Admin Dose 500 MG; Start 05/06/18 at 18:00 IV Flush (NS 10 ml) 10 ml PRN PRN IV IV PROTOCOL; Start 05/08/18 at 15:30 Fluconazole (Diflucan) 200 mg DAILY PO Last administered on 05/09/18 08:11; Admin Dose 200 MG; Start 05/09/18 at 09:00 Insulin Aspart (Novolog Insulin Pen) NOVOLOG *MILD* ALGORITHM WITH MEALS BEDTIME SC Last administered on 05/09/18 12:14; Admin Dose 7 UNIT; Start 05/09/18 at 08:00 Diagnostic Test (Pha) (Accu-Chek) 1 ea 02 XX ; Start 05/09/18 at 02:00 Pantoprazole (Protonix Tab) 40 mg DAILY PO Last administered on 05/09/18 08:07; Admin Dose 40 MG; Start 05/09/18 at 06:00 VENU NORIEGA NP May 09, 2018 15:20
[2018-05-09] MEDS: CEFTRIAXONE 1 GM/50 ML (PMX) 50 ML IVPB SCH (17:23)
[2018-05-09] MEDS ORDERED: SOD CHLORIDE 0.9% 1,000 ML IV SCH (19:30)
[2018-05-09 20:00] VITALS: BP 117/72; PULSE 81; RESP 18
[2018-05-09] MEDS: LINAGLIPTIN 5 MG TABLET PO SCH (20:16)
[2018-05-09] MEDS: INSULIN GLARGINE [LANTus] (100 UNITS/ML) SYG SC SCH (20:19)
[2018-05-10 02:00] VITALS: BP 100/55; PULSE 74; RESP 17
[2018-05-10] MEDS ORDERED: INSULIN ASPART [NOVOLOG] 3 ML PEN SC ONE (02:30)
[2018-05-10] MEDS ORDERED: ZOLPIDEM 5 MG TAB PO ONE (02:34)
[2018-05-10] MEDS: ACCU-CHEK XX SCH ×5 (02:35→20:56)
[2018-05-10] MEDS: metroNIDAZOLE 500 MG TAB PO SCH ×4 (06:56→23:44)
[2018-05-10] MEDS: SODIUM HYPOCHLORITE (1/40) 1 APPLIC BTL IRR SCH (08:02)
[2018-05-10 08:41] VITALS: BP 92/36; PULSE 77; RESP 18
[2018-05-10] MEDS: INSULIN ASPART [NOVOLOG] 3 ML PEN SC SCH ×7 (08:56→20:49)
[2018-05-10] MEDS: HEPARIN 5,000 UNIT/1 ML VIAL SC SCH ×2 (08:59→20:45)
[2018-05-10] MEDS: DOCUSATE SODIUM 100 MG CAP PO SCH ×2 (09:00→20:48)
[2018-05-10] MEDS: metFORMIN 500 MG TAB PO SCH ×2 (09:00→17:58)
[2018-05-10] MEDS: FLUCONAZOLE 200 MG TAB PO SCH (09:00)
[2018-05-10] MEDS: POLYETHYLENE GLYCOL 17 GM PACKET PO SCH (09:00)
[2018-05-10] MEDS: ZYVOX 600 MG TAB PO SCH ×2 (09:01→20:45)
[2018-05-10] MEDS: PANTOPRAZOLE (EC) 40 MG TAB PO SCH (09:01)
[2018-05-10] MEDS: LINAGLIPTIN 5 MG TABLET PO SCH (09:01)
[2018-05-10 09:15] VITALS: BP 97/51; PULSE 78; RESP 16
[2018-05-10] MEDS ORDERED: VITAMIN A & D 5 GM OINT PACKET TOP ONE (09:20)
--- NOTE | 2018-05-10 13:01 | PN ---
Date/Time of Note Date/Time of Note DATE: 05/10/18 TIME: 13:00 Objective Vitals Vital Signs Date Temp Pulse Resp B/P (MAP) Pulse Ox O2 O2 Flow FiO2 Time Delivery Rate 05/10/18 78 16 97/51 (66) 09:15 05/10/18 97.9 94 Room Air 08:41 05/10/18 2.0 06:46 Intake and Output 05/09/18 05/09/18 05/10/18 1414:59 22:59 06:59 IntakeIntake Total 850 ml 1110 ml OutputOutput Total 600 ml BalanceBalance 250 ml 1110 ml Results Result Diagram: 05/09/18 1105 05/10/18 0444 Medications Medications Current Medications IV Flush (NS 3 ml) 3 ml PER PROTOCOL IV ; Start 04/29/18 at 19:00 Acetaminophen/ Hydrocodone Bitart ([place] (5/325)) 2 tab Q6H PRN PO .SEVERE PAIN 7-10 Last administered on 05/01/18 11:42; Admin Dose 2 TAB; Start 04/29/18 at 19:00 Heparin Sodium (Porcine) (Heparin (5000 Units/1ml)) 5,000 unit Q12 SC Last administered on 05/10/18at 08:59; Admin Dose 5,000 UNIT; Start 04/29/18 at 21:00 Ondansetron HCl (Zofran Inj) 4 mg Q4H PRN IV NAUSEA AND/OR VOMITING Last administered on 05/08/18 13:06; Admin Dose 4 MG; Start 04/30/18 at 05:00 Sodium Hypochlorite (Dakin'S (Dilute 40)) 1 applic DAILY IRR Last administered on 05/09/18 08:08; Admin Dose 1 APPLIC; Start 04/30/18 at 15:00 Albuterol/ Ipratropium (Duoneb) 3 ml Q4H RESP THERAPY PRN HHN SHORTNESS OF BREATH Last administered on 05/04/18 17:15; Admin Dose 3 ML; Start 04/30/18 at 20:00 Ceftriaxone Sodium 50 ml @ 100 mls/hr Q24H IVPB Last administered on 05/09/18 17:23; Admin Dose 100 MLS/HR; Start 05/02/18 at 17:30 Linezolid (Zyvox) 600 mg BID PO Last administered on 05/10/18at 09:01; Admin Dose 600 MG; Start 05/02/18 at 21:00 Docusate Sodium (Colace) 100 mg BID PO Last administered on 05/10/18at 09:00; Admin Dose 100 MG; Start 05/02/18 at 21:00 Polyethylene Glycol (Miralax) 17 gm DAILY PO Last administered on 05/10/18at 09:00; Admin Dose 17 GM; Start 05/02/18 at 20:30 Diagnostic Test (Pha) (Accu-Chek) 1 ea AC MEALS AND BEDTIME XX Last administered on 05/09/18at 20:27; Admin Dose 1 EA; Start 05/03/18 at 17:35 Miscellaneous Information 1 ea NOTE XX ; Start 05/03/18 at 14:30 Glucose (Glutose) 15 gm Q15M PRN PO DECREASED GLUCOSE; Start 05/03/18 at 14:30 Glucose (Glutose) 22.5 gm Q15M PRN PO DECREASED GLUCOSE; Start 05/03/18 at 14:30 Dextrose (D50w Syringe) 25 ml Q15M PRN IV DECREASED GLUCOSE; Start 05/03/18 at 14:30 Dextrose (D50w Syringe) 50 ml Q15M PRN IV DECREASED GLUCOSE; Start 05/03/18 at 14:30 Glucagon (Glucagen) 1 mg Q15M PRN IM DECREASED GLUCOSE; Start 05/03/18 at 14:30 Glucose (Glutose) 15 gm Q15M PRN BUCCAL DECREASED GLUCOSE; Start 05/03/18 at 14:30 Metronidazole (Flagyl) 500 mg Q6 PO Last administered on 05/10/18at 12:33; Admin Dose 500 MG; Start 05/06/18 at 18:00 IV Flush (NS 10 ml) 10 ml PRN PRN IV IV PROTOCOL; Start 05/08/18 at 15:30 Fluconazole (Diflucan) 200 mg DAILY PO Last administered on 05/10/18at 09:00; Admin Dose 200 MG; Start 05/09/18 at 09:00 Insulin Aspart (Novolog Insulin Pen) NOVOLOG *MILD* ALGORITHM WITH MEALS BEDTIME SC Last administered on 05/10/18at 12:33; Admin Dose 2 UNIT; Start 05/09/18 at 08:00 Diagnostic Test (Pha) (Accu-Chek) 1 ea 02 XX Last administered on 05/10/18at 02:35; Admin Dose 1 EA; Start 05/09/18 at 02:00 Pantoprazole (Protonix Tab) 40 mg DAILY PO Last administered on 05/10/18at 09:01; Admin Dose 40 MG; Start 05/09/18 at 06:00 Metformin HCl (Glucophage) 1,000 mg BID WITH MEALS PO Last administered on 05/10/18at 09:00; Admin Dose 1,000 MG; Start 05/10/18 at 08:00 Linagliptin (Tradjenta) 5 mg DAILY PO Last administered on 05/10/18at 09:01; Ad min Dose 5 MG; Start 05/09/18 at 19:30 Insulin Aspart (Novolog Insulin Pen) 13 unit WITH MEALS SC Last administered on 05/10/18at 12:33; Admin Dose 13 UNIT; Start 05/10/18 at 11:30 Insulin Glargine (Lantus) 38 units DAILY@2000 SC ; Start 05/10/18 at 20:00 VTE Prophylaxis Risk score (from Nsg)>0 risk: 6 SCD applied (from Ns): No SCD contraindication: other Lines/Catheters IV Catheter Type: Juarez in Place: No Assessment/Plan Hospital Course Subjective No acute changes, patient doing well after second foot surgery Objective Physical exam General: Patient is laying in bed and answers questions appropriately Mentation: Patient is alert and oriented 4, Head: Normocephalic atraumatic Eyes: EOMI, pupils reactive to light Neck: Supple, nontender, midline Respiratory: Clear to auscultation bilaterally Cardiovascular: regular rate, no obvious murmurs Gastrointestinal: non-tender to palpation, bowel sounds heard. 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: Moves all extremities spontaneously Skin: Left foot bandaged, CDI, casted Assessment and plan Left foot wound with osteomyelitis -Status post multiple debridements and surgical correction, -Patient refusing amputation per podiatry -We will need 6-8 weeks of IV antibiotics per ID -ID consulted -Podiatry recognitions appreciated Acute kidney injury -Monitor, resolved Diabetes mellitus -Insulin Dyslipidemia -Continue home meds Disposition -Patient unable to care for herself at home as he lives alone, will get a referral for rehab versus snf placement. - JANELL YOO May 10, 2018 13:00
--- NOTE | 2018-05-10 14:14 | CONS ---
Assessment/Plan Assessment/Plan Hospital Course (Demo Recall) ID PROGRESS NOTE CURRENT ABX: DAY # Zyvox + Flagyl + Ceftriaxone + Diflucan 24H INTERVAL SUMMARY * Lethargic today -- fell asleep watching TV, no fevers, doing well, no c/o * DC planning in process DIAGNOSTIC IMAGING * 05/08/18 left foot xr: IMPRESSION: * 1. 2 K-wires are present traversing the first toe. * 2. Amputation of the second metatarsal distal diaphysis and second proximal phalanx base. * 3. Fifth toe amputation. * 4. New changes around the third metatarsal phalangeal joint and fourth metatarsal head are concerning for osteomyelitis. * 5. MRI may be helpful for further evaluation. MICRO/OTHER * 05/01/18 PATHOLOGY REPORT: Left foot tissue: -- Gangrenous necrosis of skin and subcutaneous tissue. -- No bone is microscopically identified. -- There is no evidence of malignancy. * 05/01/18 LEFT FOOT: ANAEROBIC CULTURE Final Organism 1 BACTEROIDES FRAGILIS * 05/01/18 LEFT FOOT: WOUND CULTURE Final Organism 1 VANCO RESISTANT ENTEROCOCCUS QUANTITY 1+ . MULTI DRUG RESISTANT ORGANISM VRE M.I.C. RX --------- --- AMPICILLIN >=32 R GENTAMICIN 120 S LINEZOLID 2 S PENICILLIN-G >=64 R QUINUPRISTIN/DALFOPRISTIN 1 S STREPTOMYCIN 300 S VANCOMYCIN >=32 R * 04/29/18 BCX (-) * 04/29/18: LEFT FOOT WOUND CULTURE Final Organism 1 ESCHERICHIA COLI QUANTITY 2+ Organism 2 ENTEROCOCCUS SPECIES QUANTITY 3+ Organism 3 CORYNEBACTERIUM SPECIES QUANTITY 3+ E COLI ENT SPS M.I.C. RX M.I.C. RX --------- --- --------- --- AMPICILLIN 4 S >=32 R CEFAZOLIN R CEFOTAXIME S CIPROFLOXACIN >=4 R GENTAMICIN <=1 S LEVOFLOXACIN >=8 R PENICILLIN-G >=64 R VANCOMYCIN <=0.5 S TOBRAMYCIN <=1 S TRIMETHOPRIM/SULFAMETHOXAZOLE <=20 S CORYN SPS Zone Size RX --------- --- * AMPICILLIN S * CEFAZOLIN S * CEFOTAXIME S * CEFUROXIME S * CIPROFLOXACIN R * CLINDAMYCIN S * ERYTHROMYCIN S * PENICILLIN S * VANCOMYCIN S PHYSICAL EXAMINATION: GENERAL: VSS HEENT: AT, NC, anicteric NECK: Supple, CHEST: Equal chest rise bilaterally, without dyspnea on observation HEART: Pulse RRR ABDOMEN: Soft / NT EXTREMITIES: Warm, dry -> Left foot/leg wrapped DSG C/D/I SKIN: No rash, no diaphoresis ID ASSESSMENT 57 yo M admit with: 1. 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 Diabetes 3. Obesity 4. Acute possibly on chronic kidney disease ABX ALLERGIES: KNDA INVASIVES: PIV CURRENT ABX: DAY # Zyvox + Flagyl + Ceftriaxone + Diflucan ID RECOMMENDATIONS/PLAN: 1. Continue current ABX per ID COLLEAGUE: * CEFTRIAXONE=> E.coli * FLAGYL => Bacteroides * ZYVOX=> VRE * Daptomycin was discontinued secondary to elevated CK, continue local wound care per podiatry recommendations. Patient will require 6-8 weeks of current abx * NOTED: Baseline CPK mile elevated at 341 in setting acute diabetic foot infection == likely related to myositis at sight of infection and not likely due to DAPTO. * Daptomycin remains a viable option as do not have to stop Daptomycin unless weekly monitoring of CPK rises to > 1,000 with symptoms. 2. ZYVOX prior authorization FORM on chart completed by myself today. `````````````````````````````````````````````````````````````````` REFERENCE [email or web address] Indications: CUBICIN and CUBICIN RF are indicated for the treatment of adult and pediatric patients (1 to 17 years of age) with complicated skin and skin structure infections (cSSSI) caused by susceptible isolates of the following Gram-positive bacteria: Staphylococcus aureus (including methicillin-resistant isolates), Streptococcus pyogenes, Streptococcus agalactiae, Streptococcus dysgalactiae subspecies equisimilis, and Enterococcus faecalis (vancomycin- susceptible isolates only). * Selected Important Safety Information * Myopathy and rhabdomyolysis have been reported with CUBICIN use. Monitor for muscle pain or weakness, particularly of the distal extremities. Monitor creat ine phosphokinase (CPK) levels weekly and more frequently in patients with CPK elevations while on CUBICIN or CUBICIN RF treatment and in those who received recent prior or concomitant HMG-CoA reductase inhibitors. In patients with renal impairment, monitor renal function and CPK levels more than once weekly. Discontinue CUBICIN or CUBICIN RF in patients with unexplained signs and symptoms of myopathy with CPK levels >1,000 U/L (~5 ULN), and in patients without symptoms and CPK levels >2,000 U/L (=10 ULN). In addition, consider temporarily suspending agents associated with rhabdomyolysis, such as HMG-CoA reductase inhibitors. * ``````````````````````````````````````````````````````````````` ```````````````````````````````````````````````````````````````````````````````````````````````````` ` Consultation Date/Type/Reason Admit Date/Time Apr 29, 2018 at 18:18 Initial Consult Date Date/Time of Note DATE: 05/10/18 TIME: 14:13 Exam/Review of Systems Exam Vitals Vital Signs Date Temp Pulse Resp B/P (MAP) Pulse Ox O2 O2 Flow FiO2 Time Delivery Rate 05/10/18 2.0 13:52 05/10/18 78 16 97/51 (66) 09:15 05/10/18 97.9 94 Room Air 08:41 Intake and Output 05/09/18 05/09/18 05/10/18 1515:00 23:00 07:00 IntakeIntake Total 850 ml 1110 ml OutputOutput Total 600 ml BalanceBalance 250 ml 1110 ml Results Result Diagram: 05/09/18 1105 05/10/18 0444 Results 24hrs Laboratory Tests Test 05/09/18 17:21 05/09/18 20:12 05/10/18 01:53 05/10/18 02:42 Bedside Glucose 329 H 266 H 317 H 306 H Test 05/10/18 04:41 05/10/18 04:44 05/10/18 08:32 05/10/18 12:25 Bedside Glucose 279 H 229 H 218 Sodium Level 131 L Potassium Level 4.0 Chloride Level 105 Carbon Dioxide Level 19 L Anion Gap 7 Blood Urea Nitrogen 32 H Creatinine 1.17 Est Glomerular > 60 Filtrat Rate mL/min Glucose Level 278 #H Calcium Level 8.4 Phosphorus Level 2.5 Magnesium Level 1.7 Medications Medication Current Medications IV Flush (NS 3 ml) 3 ml PER PROTOCOL IV ; Start 04/29/18 at 19:00 Acetaminophen/ Hydrocodone Bitart ([place] (5/325)) 2 tab Q6H PRN PO .SEVERE PAIN 7-10 Last administered on 05/01/18 11:42; Admin Dose 2 TAB; Start 04/29/18 at 19:00 Heparin Sodium (Porcine) (Heparin (5000 Units/1ml)) 5,000 unit Q12 SC Last administered on 05/10/18at 08:59; Admin Dose 5,000 UNIT; Start 04/29/18 at 21:00 Ondansetron HCl (Zofran Inj) 4 mg Q4H PRN IV NAUSEA AND/OR VOMITING Last administered on 05/08/18 13:06; Admin Dose 4 MG; Start 04/30/18 at 05:00 Sodium Hypochlorite (Dakin'S (Dilute 1/40)) 1 applic DAILY IRR Last administered on 05/09/18 08:08; Admin Dose 1 APPLIC; Start 04/30/18 at 15:00 Albuterol/ Ipratropium (Duoneb) 3 ml Q4H RESP THERAPY PRN HHN SHORTNESS OF BREATH Last administered on 05/04/18at 17:15; Admin Dose 3 ML; Start 04/30/18 at 20:00 Ceftriaxone Sodium 50 ml @ 100 mls/hr Q24H IVPB Last administered on 05/09/18at 17:23; Admin Dose 100 MLS/HR; Start 05/02/18 at 17:30 Linezolid (Zyvox) 600 mg BID PO Last administered on 05/10/18at 09:01; Admin Dose 600 MG; Start 05/02/18 at 21:00 Docusate Sodium (Colace) 100 mg BID PO Last administered on 05/10/18at 09:00; Admin Dose 100 MG; Start 05/02/18 at 21:00 Polyethylene Glycol (Miralax) 17 gm DAILY PO Last administered on 05/10/18at 09:00; Admin Dose 17 GM; Start 05/02/18 at 20:30 Diagnostic Test (Pha) (Accu-Chek) 1 ea AC MEALS AND BEDTIME XX Last administered on 05/09/18at 20:27; Admin Dose 1 EA; Start 05/03/18 at 17:35 Miscellaneous Information 1 ea NOTE XX ; Start 05/03/18 at 14:30 Glucose (Glutose) 15 gm Q15M PRN PO DECREASED GLUCOSE; Start 05/03/18 at 14:30 Glucose (Glutose) 22.5 gm Q15M PRN PO DECREASED GLUCOSE; Start 05/03/18 at 14:30 Dextrose (D50w Syringe) 25 ml Q15M PRN IV DECREASED GLUCOSE; Start 05/03/18 at 14:30 Dextrose (D50w Syringe) 50 ml Q15M PRN IV DECREASED GLUCOSE; Start 05/03/18 at 14:30 Glucagon (Glucagen) 1 mg Q15M PRN IM DECREASED GLUCOSE; Start 05/03/18 at 14:30 Glucose (Glutose) 15 gm Q15M PRN BUCCAL DECREASED GLUCOSE; Start 05/03/18 at 14:30 Metronidazole (Flagyl) 500 mg Q6 PO Last administered on 05/10/18at 12:33; Admin Dose 500 MG; Start 05/06/18 at 18:00 IV Flush (NS 10 ml) 10 ml PRN PRN IV IV PROTOCOL; Start 05/08/18 at 15:30 Fluconazole (Diflucan) 200 mg DAILY PO Last administered on 05/10/18at 09:00; Admin Dose 200 MG; Start 05/09/18 at 09:00 Insulin Aspart (Novolog Insulin Pen) NOVOLOG *MILD* ALGORITHM WITH MEALS BEDTIME SC Last administered on 05/10/18at 12:33; Admin Dose 2 UNIT; Start 05/09/18 at 08:00 Diagnostic Test (Pha) (Accu-Chek) 1 ea 02 XX Last administered on 05/10/18at 02:35; Admin Dose 1 EA; Start 05/09/18 at 02:00 Pantoprazole (Protonix Tab) 40 mg DAILY PO Last administered on 05/10/18at 09:01; Admin Dose 40 MG; Start 05/09/18 at 06:00 Metformin HCl (Glucophage) 1,000 mg BID WITH MEALS PO Last administered on 05/10/18at 09:00; Admin Dose 1,000 MG; Start 05/10/18 at 08:00 Linagliptin (Tradjenta) 5 mg DAILY PO Last administered on 05/10/18at 09:01; Admin Dose 5 MG; Start 05/09/18 at 19:30 Insulin Aspart (Novolog Insulin Pen) 13 unit WITH MEALS SC Last administered on 05/10/18at 12:33; Admin Dose 13 UNIT; Start 05/10/18 at 11:30 Insulin Glargine (Lantus) 38 units DAILY@2000 SC ; Start 05/10/18 at 20:00 VENU NORIEGA NP May 10, 2018 14:14
[2018-05-10 14:20] VITALS: BP 110/67; PULSE 82; RESP 18
[2018-05-10] MEDS: CEFTRIAXONE 1 GM/50 ML (PMX) 50 ML IVPB SCH (17:57)
[2018-05-10] MEDS ORDERED: INSULIN GLARGINE [LANTus] (100 UNITS/ML) SYG SC SCH (20:00)
[2018-05-10 20:39] VITALS: BP 92/54; PULSE 62; RESP 18
[2018-05-10] MEDS: ONDANSETRON 4 MG INJ IV PRN (23:47)
[2018-05-11] MEDS ORDERED: ZOLPIDEM 5 MG TAB PO ONE (00:30)
[2018-05-11] MEDS: ACCU-CHEK XX SCH ×5 (01:17→21:00)
[2018-05-11 02:11] VITALS: BP 118/70; PULSE 97; RESP 18
[2018-05-11] MEDS: metroNIDAZOLE 500 MG TAB PO SCH ×3 (05:57→17:26)
[2018-05-11 08:10] VITALS: BP 89/54; PULSE 74; RESP 17
[2018-05-11] MEDS: INSULIN ASPART [NOVOLOG] 3 ML PEN SC SCH ×7 (08:32→20:53)
[2018-05-11] MEDS: HEPARIN 5,000 UNIT/1 ML VIAL SC SCH ×2 (08:33→20:57)
[2018-05-11] MEDS: ZYVOX 600 MG TAB PO SCH ×2 (08:34→20:52)
[2018-05-11] MEDS: DOCUSATE SODIUM 100 MG CAP PO SCH ×2 (08:34→20:52)
[2018-05-11] MEDS: LINAGLIPTIN 5 MG TABLET PO SCH (08:34)
[2018-05-11] MEDS: FLUCONAZOLE 200 MG TAB PO SCH (08:34)
[2018-05-11] MEDS: metFORMIN 500 MG TAB PO SCH ×2 (08:35→17:26)
[2018-05-11] MEDS: PANTOPRAZOLE (EC) 40 MG TAB PO SCH (08:35)
[2018-05-11] MEDS: POLYETHYLENE GLYCOL 17 GM PACKET PO SCH ×2 (08:35→08:39)
[2018-05-11] MEDS: SODIUM HYPOCHLORITE (1/40) 1 APPLIC BTL IRR SCH (08:39)
[2018-05-11 08:43] VITALS: BP 102/62; PULSE 86
--- NOTE | 2018-05-11 09:50 | PN ---
Date/Time of Note Date/Time of Note DATE: 05/11/18 TIME: 09:50 Assessment/Plan VTE Prophylaxis Risk score (from Nsg)>0 risk: 8 SCD applied (from Nsg): Yes Pharmacological prophylaxis: LMWH Lines/Catheters IV Catheter Type (from Nrsg): PICC Line Central line still needed: Yes Urinary Cath still in place: No Assessment/Plan Assessment/Plan 1. Left foot wound with osteomyelitis - Podiatry on board and appreciate recommendations. Patient has multiple questions to ask specialist - Status post multiple debridement and surgical correction, - Patient refusing amputation per podiatry - We will need 6-8 weeks of IV antibiotics per ID - ID on board for antibiotic management 2. Diabetes mellitus - Continue Insulin, ISS and accuchecks 3. Dyslipidemia - Continue home meds 4. Disposition - SNF placement for continued IV antibiotics Result Diagram: 05/11/18 0557 05/11/18 0557 Results 24hrs Laboratory Tests Test 05/10/18 12:25 05/10/18 17:48 05/10/18 20:39 05/10/18 23:15 Bedside Glucose 218 96 81 99 Test 05/11/18 02:35 05/11/18 05:57 05/11/18 07:54 Bedside Glucose 185 146 White Blood Count 10.4 Red Blood Count 2.91 L Hemoglobin 8.2 L Hematocrit 25.7 L Mean Corpuscular 88.3 Volume Mean Corpuscular 28.2 L Hemoglobin Mean Corpuscular 31.9 L Hemoglobin Concent Red Cell 13.3 Distribution Width Platelet Count 324 Mean Platelet Volume 9.0 Immature 1.200 H Granulocytes % Neutrophils % 64.2 Lymphocytes % 25.3 Monocytes % 6.8 Eosinophils % 2.1 Basophils % 0.4 Nucleated Red Blood 0.0 Cells % Immature 0.120 H Granulocytes # Neutrophils # 6.7 Lymphocytes # 2.6 Monocytes # 0.7 Eosinophils # 0.2 Basophils # 0.0 Nucleated Red Blood 0.0 Cells # Sodium Level 137 Potassium Level 4.2 Chloride Level 107 Carbon Dioxide Level 18 L Anion Gap 12 Blood Urea Nitrogen 27 H Creatinine 1.05 Est Glomerular > 60 Filtrat Rate mL/min Glucose Level 137 # Calcium Level 8.4 Phosphorus Level 2.9 Magnesium Level 1.5 L Subjective 24 Hr Interval Summary Free Text/Dictation Patient states he was experiencing vomiting last night and concerned about the fluctuations in his sugars. Was told by his PCP he did not need ISS if sugars were under 80. Discussed home setting vs hospital controlled environment for managing sugar control. Also complains of experiencing difficulty sleeping overnight. Exam/Review of Systems Exam Vitals Vital Signs Date Temp Pulse Resp B/P (MAP) Pulse Ox O2 O2 Flow FiO2 Time Delivery Rate 05/11/18 86 102/62 08:43 (75) 05/11/18 98.3 17 96 Room Air 08:10 05/11/18 2.0 03:18 Intake and Output 05/10/18 05/10/18 05/11/18 1515:00 23:00 07:00 IntakeIntake Total 730 ml 620 ml 1480 ml OutputOutput Total 550 ml 1050 ml 700 ml BalanceBalance 180 ml -430 ml 780 ml Exam General: Patient is laying in bed and answers questions appropriately Neck: Supple, nontender, midline Respiratory: Clear to auscultation bilaterally. no wheezing Cardiovascular: regular rate and rhythm, no obvious murmurs Gastrointestinal: soft, non-tender to palpation, bowel sounds heard. 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: Moves all extremities spontaneously Skin: Left foot bandaged, CDI, casted Results Results 24hrs Laboratory Tests Test 05/10/18 12:25 05/10/18 17:48 05/10/18 20:39 05/10/18 23:15 Bedside Glucose 218 96 81 99 Test 05/11/18 02:35 05/11/18 05:57 05/11/18 07:54 Bedside Glucose 185 146 White Blood Count 10.4 Red Blood Count 2.91 L Hemoglobin 8.2 L Hematocrit 25.7 L Mean Corpuscular 88.3 Volume Mean Corpuscular 28.2 L Hemoglobin Mean Corpuscular 31.9 L Hemoglobin Concent Red Cell 13.3 Distribution Width Platelet Count 324 Mean Platelet Volume 9.0 Immature 1.200 H Granulocytes % Neutrophils % 64.2 Lymphocytes % 25.3 Monocytes % 6.8 Eosinophils % 2.1 Basophils % 0.4 Nucleated Red Blood 0.0 Cells % Immature 0.120 H Granulocytes # Neutrophils # 6.7 Lymphocytes # 2.6 Monocytes # 0.7 Eosinophils # 0.2 Basophils # 0.0 Nucleated Red Blood 0.0 Cells # Sodium Level 137 Potassium Level 4.2 Chloride Level 107 Carbon Dioxide Level 18 L Anion Gap 12 Blood Urea Nitrogen 27 H Creatinine 1.05 Est Glomerular > 60 Filtrat Rate mL/min Glucose Level 137 # Calcium Level 8.4 Phosphorus Level 2.9 Magnesium Level 1.5 L Medications Medication Current Medications IV Flush (NS 3 ml) 3 ml PER PROTOCOL IV ; Start 04/29/18 at 19:00 Acetaminophen/ Hydrocodone Bitart ([place] (5/325)) 2 tab Q6H PRN PO .SEVERE PAIN 7-10 Last administered on 05/01/18 11:42; Admin Dose 2 TAB; Start 04/29/18 at 19:00 Heparin Sodium (Porcine) (Heparin (5000 Units/1ml)) 5,000 unit Q12 SC Last administered on 05/11/18 08:33; Admin Dose 5,000 UNIT; Start 04/29/18 at 21:00 Ondansetron HCl (Zofran Inj) 4 mg Q4H PRN IV NAUSEA AND/OR VOMITING Last administered on 05/10/18 23:47; Admin Dose 4 MG; Start 04/30/18 at 05:00 Sodium Hypochlorite (Dakin'S (Dilute )) 1 applic DAILY IRR Last administered on 05/11/18 08:39; Admin Dose 1 APPLIC; Start 04/30/18 at 15:00 Albuterol/ Ipratropium (Duoneb) 3 ml Q4H RESP THERAPY PRN HHN SHORTNESS OF BREATH Last administered on 05/04/18 17:15; Admin Dose 3 ML; Start 04/30/18 at 20:00 Ceftriaxone Sodium 50 ml @ 100 mls/hr Q24H IVPB Last administered on 05/10/18 17:57; Admin Dose 100 MLS/HR; Start 05/02/18 at 17:30 Linezolid (Zyvox) 600 mg BID PO Last administered on 05/11/18 08:34; Admin Dose 600 MG; Start 05/02/18 at 21:00 Docusate Sodium (Colace) 100 mg BID PO Last administered on 05/11/18 08:34; Admin Dose 100 MG; Start 05/02/18 at 21:00 Polyethylene Glycol (Miralax) 17 gm DAILY PO Last administered on 05/10/18 09:00; Admin Dose 17 GM; Start 05/02/18 at 20:30 Diagnostic Test (Pha) (Accu-Chek) 1 ea AC MEALS AND BEDTIME XX Last administered on 05/11/18at 07:30; Admin Dose 1 EA; Start 05/03/18 at 17:35 Miscellaneous Information 1 ea NOTE XX ; Start 05/03/18 at 14:30 Glucose (Glutose) 15 gm Q15M PRN PO DECREASED GLUCOSE; Start 05/03/18 at 14:30 Glucose (Glutose) 22.5 gm Q15M PRN PO DECREASED GLUCOSE; Start 05/03/18 at 14:30 Dextrose (D50w Syringe) 25 ml Q15M PRN IV DECREASED GLUCOSE; Start 05/03/18 at 14:30 Dextrose (D50w Syringe) 50 ml Q15M PRN IV DECREASED GLUCOSE; Start 05/03/18 at 14:30 Glucagon (Glucagen) 1 mg Q15M PRN IM DECREASED GLUCOSE; Start 05/03/18 at 14:30 Glucose (Glutose) 15 gm Q15M PRN BUCCAL DECREASED GLUCOSE; Start 05/03/18 at 14:30 Metronidazole (Flagyl) 500 mg Q6 PO Last administered on 05/11/18at 05:57; Admin Dose 500 MG; Start 05/06/18 at 18:00 IV Flush (NS 10 ml) 10 ml PRN PRN IV IV PROTOCOL; Start 05/08/18 at 15:30 Fluconazole (Diflucan) 200 mg DAILY PO Last administered on 05/11/18at 08:34; Admin Dose 200 MG; Start 05/09/18 at 09:00 Insulin Aspart (Novolog Insulin Pen) NOVOLOG *MILD* ALGORITHM WITH MEALS BEDTIME SC Last administered on 05/11/18at 08:38; Admin Dose 1 UNIT; Start 05/09/18 at 08:00 Diagnostic Test (Pha) (Accu-Chek) 1 ea 02 XX Last administered on 05/10/18at 02:35; Admin Dose 1 EA; Start 05/09/18 at 02:00 Pantoprazole (Protonix Tab) 40 mg DAILY PO Last administered on 05/11/18at 08:35; Admin Dose 40 MG; Start 05/09/18 at 06:00 Metformin HCl (Glucophage) 1,000 mg BID WITH MEALS PO Last administered on 05/11/18at 08:35; Admin Dose 1,000 MG; Start 05/10/18 at 08:00 Linagliptin (Tradjenta) 5 mg DAILY PO Last administered on 05/11/18at 08:34; Admin Dose 5 MG; Start 05/09/18 at 19:30 Insulin Aspart (Novolog Insulin Pen) 13 unit WITH MEALS SC Last administered on 05/11/18at 08:32; Admin Dose 13 UNIT; Start 05/10/18 at 11:30 Insulin Glargine (Lantus) 38 units DAILY@2000 SC ; Start 05/10/18 at 20:00 Magnesium Sulfate 50 ml @ 25 mls/hr ONCE ONCE IVPB ; Start 05/11/18 at 10:30; Stop 05/11/18 at 12:29 KATIE RUTLEDGE MD May 11, 2018 09:50
[2018-05-11] MEDS ORDERED: MAGNESIUM SULFATE 2 GM/50 ML 50 ML IVPB ONE (10:30)
[2018-05-11] MEDS: LACTOBACILLUS RHAMNOSUS CAP PO SCH ×2 (11:09→17:26)
--- NOTE | 2018-05-11 13:25 | CONS ---
Assessment/Plan Assessment/Plan Hospital Course (Demo Recall) No acute changes overnight, alert, feels good Wound culture grew VRE E. coli Corynebacterium species and Bacteroides fragilis Antimicrobials: Zyvox Rocephin, Flagyl PHYSICAL EXAMINATION: GENERAL: This is a well-developed, well-nourished, middle-aged man who is awake, in no distress. HEENT: Head is atraumatic, normocephalic. NECK: Supple. CHEST: Rise symmetrical. Breath sounds diminished to bases. HEART: S1, S2. ABDOMEN: Soft. Bowel tones are present. EXTREMITIES: With left extremity in a cast Assessment: 1. 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 Diabetes 3. Obesity 4. Acute possibly on chronic kidney disease Plan: Remains stable, pending discharge arrangements on current antibiotics for 6 more weeks. We can switch patient's Zyvox to daptomycin if it is easier to arrange and monitor CK Consultation Date/Type/Reason Admit Date/Time Apr 29, 2018 at 18:18 Initial Consult Date Type of Consult id Date/Time of Note DATE: 05/11/18 TIME: 13:23 Exam/Review of Systems Exam Vitals Vital Signs Date Temp Pulse Resp B/P (MAP) Pulse Ox O2 O2 Flow FiO2 Time Delivery Rate 05/11/18 2.0 13:20 05/11/18 86 102/62 08:43 (75) 05/11/18 98.3 17 96 Room Air 08:10 Intake and Output 05/10/18 05/10/18 05/11/18 1515:00 23:00 07:00 IntakeIntake Total 730 ml 620 ml 1480 ml OutputOutput Total 550 ml 1050 ml 700 ml BalanceBalance 180 ml -430 ml 780 ml Results Result Diagram: 05/11/18 0557 05/11/18 0557 Results 24hrs Laboratory Tests Test 05/10/18 17:48 05/10/18 20:39 05/10/18 23:15 05/11/18 02:35 Bedside Glucose 96 81 99 185 Test 05/11/18 05:57 05/11/18 07:54 05/11/18 11:48 White Blood Count 10.4 Red Blood Count 2.91 L Hemoglobin 8.2 L Hematocrit 25.7 L Mean Corpuscular 88.3 Volume Mean Corpuscular 28.2 L Hemoglobin Mean Corpuscular 31.9 L Hemoglobin Concent Red Cell 13.3 Distribution Width Platelet Count 324 Mean Platelet Volume 9.0 Immature 1.200 H Granulocytes % Neutrophils % 64.2 Lymphocytes % 25.3 Monocytes % 6.8 Eosinophils % 2.1 Basophils % 0.4 Nucleated Red Blood 0.0 Cells % Immature 0.120 H Granulocytes # Neutrophils # 6.7 Lymphocytes # 2.6 Monocytes # 0.7 Eosinophils # 0.2 Basophils # 0.0 Nucleated Red Blood 0.0 Cells # Sodium Level 137 Potassium Level 4.2 Chloride Level 107 Carbon Dioxide Level 18 L Anion Gap 12 Blood Urea Nitrogen 27 H Creatinine 1.05 Est Glomerular > 60 Filtrat Rate mL/min Glucose Level 137 # Calcium Level 8.4 Phosphorus Level 2.9 Magnesium Level 1.5 L Bedside Glucose 146 151 Medications Medication Current Medications IV Flush (NS 3 ml) 3 ml PER PROTOCOL IV ; Start 04/29/18 at 19:00 Acetaminophen/ Hydrocodone Bitart ([place] (5/325)) 2 tab Q6H PRN PO .SEVERE PAIN 7-10 Last administered on 05/01/18 11:42; Admin Dose 2 TAB; Start 04/29/18 at 19:00 Heparin Sodium (Porcine) (Heparin (5000 Units/1ml)) 5,000 unit Q12 SC Last administered on 05/11/18 08:33; Admin Dose 5,000 UNIT; Start 04/29/18 at 21:00 Ondansetron HCl (Zofran Inj) 4 mg Q4H PRN IV NAUSEA AND/OR VOMITING Last administered on 05/10/18 23:47; Admin Dose 4 MG; Start 04/30/18 at 05:00 Sodium Hypochlorite (Dakin'S (Dilute )) 1 applic DAILY IRR Last administered on 05/11/18 08:39; Admin Dose 1 APPLIC; Start 04/30/18 at 15:00 Albuterol/ Ipratropium (Duoneb) 3 ml Q4H RESP THERAPY PRN HHN SHORTNESS OF BR EATH Last administered on 05/04/18 17:15; Admin Dose 3 ML; Start 04/30/18 at 20:00 Ceftriaxone Sodium 50 ml @ 100 mls/hr Q24H IVPB Last administered on 3/17/19at 17:57; Admin Dose 100 MLS/HR; Start 05/02/18 at 17:30 Linezolid (Zyvox) 600 mg BID PO Last administered on 05/11/18at 08:34; Admin Dose 600 MG; Start 05/02/18 at 21:00 Docusate Sodium (Colace) 100 mg BID PO Last administered on 05/11/18at 08:34; Admin Dose 100 MG; Start 05/02/18 at 21:00 Polyethylene Glycol (Miralax) 17 gm DAILY PO Last administered on 05/10/18at 09:00; Admin Dose 17 GM; Start 05/02/18 at 20:30 Diagnostic Test (Pha) (Accu-Chek) 1 ea AC MEALS AND BEDTIME XX Last administered on 05/11/18at 12:03; Admin Dose 1 EA; Start 05/03/18 at 17:35 Miscellaneous Information 1 ea NOTE XX ; Start 05/03/18 at 14:30 Glucose (Glutose) 15 gm Q15M PRN PO DECREASED GLUCOSE; Start 05/03/18 at 14:30 Glucose (Glutose) 22.5 gm Q15M PRN PO DECREASED GLUCOSE; Start 05/03/18 at 14:30 Dextrose (D50w Syringe) 25 ml Q15M PRN IV DECREASED GLUCOSE; Start 05/03/18 at 14:30 Dextrose (D50w Syringe) 50 ml Q15M PRN IV DECREASED GLUCOSE; Start 05/03/18 at 14:30 Glucagon (Glucagen) 1 mg Q15M PRN IM DECREASED GLUCOSE; Start 05/03/18 at 14:30 Glucose (Glutose) 15 gm Q15M PRN BUCCAL DECREASED GLUCOSE; Start 05/03/18 at 14:30 Metronidazole (Flagyl) 500 mg Q6 PO Last administered on 05/11/18at 11:10; Admin Dose 500 MG; Start 05/06/18 at 18:00 IV Flush (NS 10 ml) 10 ml PRN PRN IV IV PROTOCOL; Start 05/08/18 at 15:30 Fluconazole (Diflucan) 200 mg DAILY PO Last administered on 05/11/18at 08:34; Admin Dose 200 MG; Start 05/09/18 at 09:00 Insulin Aspart (Novolog Insulin Pen) NOVOLOG *MILD* ALGORITHM WITH MEALS BEDTIME SC Last administered on 05/11/18at 12:03; Admin Dose 1 UNIT; Start 05/09/18 at 08:00 Diagnostic Test (Pha) (Accu-Chek) 1 ea 02 XX Last administered on 05/10/18 02:35; Admin Dose 1 EA; Start 05/09/18 at 02:00 Pantoprazole (Protonix Tab) 40 mg DAILY PO Last administered on 05/11/18 08:35; Admin Dose 40 MG; Start 05/09/18 at 06:00 Metformin HCl (Glucophage) 1,000 mg BID WITH MEALS PO Last administered on 05/11/18 08:35; Admin Dose 1,000 MG; Start 05/10/18 at 08:00 Linagliptin (Tradjenta) 5 mg DAILY PO Last administered on 05/11/18 08:34; Admin Dose 5 MG; Start 05/09/18 at 19:30 Insulin Aspart (Novolog Insulin Pen) 13 unit WITH MEALS SC Last administered on 05/11/18 12:02; Admin Dose 13 UNIT; Start 05/10/18 at 11:30 Lactobacillus Acidophilus/ Rhamnosus (Culturelle) 1 cap WITH MEALS PO Last administered on 05/11/18 11:09; Admin Dose 1 CAP; Start 05/11/18 at 11:30 Trazodone HCl (Desyrel) 50 mg HS PO ; Start 05/11/18 at 21:00 Insulin Glargine (Lantus) 35 units DAILY@2000 SC ; Start 05/11/18 at 20:00 KITTY DUMONT NP May 11, 2018 13:25
[2018-05-11 14:00] VITALS: BP_SYST 162; BP_SYST 90; BP_DIAS 55; BP_DIAS 73; PULSE 73; PULSE 89; RESP 18
--- NOTE | 2018-05-11 17:13 | CONS ---
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 Non weight bearing to left lower extremity. Intra op cultures showing VRE, bacteroides fragilis and pathology showing gangrenous tissue. Previous cultures showing e.coli, enteroccocus species, and corynebacterium. Offload heels with pillows. X-rays and MRI reviewed with noted signs of osteomyelitis. IV abx and antifungal therapy per ID recommendations. Cultures on previous hospitalization showed VRE, e.coli and yuliana albicans. Patient has 3 vessel run off per vascular surgery. Patient wants to pursue limb salvage at this time. Patient is stable from podiatry stand point. Recommend PT/OT evaluation. Consultation Date/Type/Reason Admit Date/Time Apr 29, 2018 at 18:18 Initial Consult Date Date/Time of Note DATE: 05/11/18 TIME: 17:12 24 HR Interval Summary Free Text/Dictation No acute events overnight Exam/Review of Systems Exam Vitals Vital Signs Date Temp Pulse Resp B/P (MAP) Pulse Ox O2 O2 Flow FiO2 Time Delivery Rate 05/11/18 97.1 89 18 90/55 (67) 97 Room Air 14:00 05/11/18 2.0 13:20 Intake and Output 05/10/18 05/10/18 05/11/18 1414:59 22:59 06:59 IntakeIntake Total 730 ml 620 ml 1480 ml OutputOutput Total 550 ml 1050 ml 700 ml BalanceBalance 180 ml -430 ml 780 ml Exam cast clean dry and intact, no proximal streaking, no strikethrough drainage appreciated, no foul odor. Results Result Diagram: 05/11/18 0557 05/11/18 0557 Results 24hrs Laboratory Tests Test 05/10/18 17:48 05/10/18 20:39 05/10/18 23:15 05/11/18 02:35 Bedside Glucose 96 81 99 185 Test 05/11/18 05:57 05/11/18 07:54 05/11/18 11:48 05/11/18 14:19 White Blood Count 10.4 Red Blood Count 2.91 L Hemoglobin 8.2 L Hematocrit 25.7 L Mean Corpuscular 88.3 Volume Mean Corpuscular 28.2 L Hemoglobin Mean Corpuscular 31.9 L Hemoglobin Concent Red Cell 13.3 Distribution Width Platelet Count 324 Mean Platelet Volume 9.0 Immature 1.200 H Granulocytes % Neutrophils % 64.2 Lymphocytes % 25.3 Monocytes % 6.8 Eosinophils % 2.1 Basophils % 0.4 Nucleated Red Blood 0.0 Cells % Immature 0.120 H Granulocytes # Neutrophils # 6.7 Lymphocytes # 2.6 Monocytes # 0.7 Eosinophils # 0.2 Basophils # 0.0 Nucleated Red Blood 0.0 Cells # Sodium Level 137 Potassium Level 4.2 Chloride Level 107 Carbon Dioxide Level 18 L Anion Gap 12 Blood Urea Nitrogen 27 H Creatinine 1.05 Est Glomerular > 60 Filtrat Rate mL/min Glucose Level 137 # Calcium Level 8.4 Phosphorus Level 2.9 Magnesium Level 1.5 L Bedside Glucose 146 151 Erythrocyte 70 H Sedimentation Rate C-Reactive Protein 2.9 H Medications Medication Current Medications IV Flush (NS 3 ml) 3 ml PER PROTOCOL IV ; Start 04/29/18 at 19:00 Acetaminophen/ Hydrocodone Bitart ([place] (5/325)) 2 tab Q6H PRN PO .SEVERE PAIN 7-10 Last administered on 05/01/18 11:42; Admin Dose 2 TAB; Start 04/29/18 at 19:00 Heparin Sodium (Porcine) (Heparin (5000 Units/1ml)) 5,000 unit Q12 SC Last administered on 05/11/18 08:33; Admin Dose 5,000 UNIT; Start 04/29/18 at 21:00 Ondansetron HCl (Zofran Inj) 4 mg Q4H PRN IV NAUSEA AND/OR VOMITING Last administered on 05/10/18 23:47; Admin Dose 4 MG; Start 04/30/18 at 05:00 Sodium Hypochlorite (Dakin'S (Dilute )) 1 applic DAILY IRR Last administered on 05/11/18 08:39; Admin Dose 1 APPLIC; Start 04/30/18 at 15:00 Albuterol/ Ipratropium (Duoneb) 3 ml Q4H RESP THERAPY PRN HHN SHORTNESS OF BREATH Last administered on 05/04/18 17:15; Admin Dose 3 ML; Start 04/30/18 at 20:00 Ceftriaxone Sodium 50 ml @ 100 mls/hr Q24H IVPB Last administered on 05/10/18at 17:57; Admin Dose 100 MLS/HR; Start 05/02/18 at 17:30 Linezolid (Zyvox) 600 mg BID PO Last administered on 05/11/18 08:34; Admin Dose 600 MG; Start 05/02/18 at 21:00 Docusate Sodium (Colace) 100 mg BID PO Last administered on 05/11/18 08:34; Admin Dose 100 MG; Start 05/02/18 at 21:00 Polyethylene Glycol (Miralax) 17 gm DAILY PO Last administered on 05/10/18 09:00; Admin Dose 17 GM; Start 05/02/18 at 20:30 Diagnostic Test (Pha) (Accu-Chek) 1 ea AC MEALS AND BEDTIME XX Last administered on 05/11/18at 12:03; Admin Dose 1 EA; Start 05/03/18 at 17:35 Miscellaneous Information 1 ea NOTE XX ; Start 05/03/18 at 14:30 Glucose (Glutose) 15 gm Q15M PRN PO DECREASED GLUCOSE; Start 05/03/18 at 14:30 Glucose (Glutose) 22.5 gm Q15M PRN PO DECREASED GLUCOSE; Start 05/03/18 at 14:30 Dextrose (D50w Syringe) 25 ml Q15M PRN IV DECREASED GLUCOSE; Start 05/03/18 at 14:30 Dextrose (D50w Syringe) 50 ml Q15M PRN IV DECREASED GLUCOSE; Start 05/03/18 at 14:30 Glucagon (Glucagen) 1 mg Q15M PRN IM DECREASED GLUCOSE; Start 05/03/18 at 14:30 Glucose (Glutose) 15 gm Q15M PRN BUCCAL DECREASED GLUCOSE; Start 05/03/18 at 14:30 Metronidazole (Flagyl) 500 mg Q6 PO Last administered on 05/11/18at 11:10; Admin Dose 500 MG; Start 05/06/18 at 18:00 IV Flush (NS 10 ml) 10 ml PRN PRN IV IV PROTOCOL; Start 05/08/18 at 15:30 Fluconazole (Diflucan) 200 mg DAILY PO Last administered on 05/11/18at 08:34; Admin Dose 200 MG; Start 05/09/18 at 09:00 Insulin Aspart (Novolog Insulin Pen) NOVOLOG *MILD* ALGORITHM WITH MEALS BEDTIME SC Last administered on 05/11/18 12:03; Admin Dose 1 UNIT; Start 05/09/18 at 08:00 Diagnostic Test (Pha) (Accu-Chek) 1 ea 02 XX Last administered on 05/10/18 02:35; Admin Dose 1 EA; Start 05/09/18 at 02:00 Pantoprazole (Protonix Tab) 40 mg DAILY PO Last administered on 05/11/18 08:35; Admin Dose 40 MG; Start 05/09/18 at 06:00 Metformin HCl (Glucophage) 1,000 mg BID WITH MEALS PO Last administered on 05/11/18 08:35; Admin Dose 1,000 MG; Start 05/10/18 at 08:00 Linagliptin (Tradjenta) 5 mg DAILY PO Last administered on 05/11/18at 08:34; Admin Dose 5 MG; Start 05/09/18 at 19:30 Insulin Aspart (Novolog Insulin Pen) 13 unit WITH MEALS SC Last administered on 05/11/18at 12:02; Admin Dose 13 UNIT; Start 05/10/18 at 11:30 Lactobacillus Acidophilus/ Rhamnosus (Culturelle) 1 cap WITH MEALS PO Last administered on 05/11/18 11:09; Admin Dose 1 CAP; Start 05/11/18 at 11:30 Trazodone HCl (Desyrel) 50 mg HS PO ; Start 05/11/18 at 21:00 Insulin Glargine (Lantus) 35 units DAILY@2000 SC ; Start 05/11/18 at 20:00 NIMISHA HENNING DPM May 11, 2018 17:13
[2018-05-11] MEDS: CEFTRIAXONE 1 GM/50 ML (PMX) 50 ML IVPB SCH (17:27)
[2018-05-11] MEDS: INSULIN GLARGINE [LANTus] (100 UNITS/ML) SYG SC SCH (20:00)
[2018-05-11 20:21] VITALS: BP 87/52; PULSE 80; RESP 18
[2018-05-11 20:45] VITALS: BP 118/65; PULSE 82
[2018-05-11] MEDS: traZODone 50 MG TAB PO SCH (20:52)
[2018-05-12] MEDS: metroNIDAZOLE 500 MG TAB PO SCH ×4 (00:17→17:52)
[2018-05-12] MEDS: ACCU-CHEK XX SCH ×5 (01:03→21:00)
[2018-05-12 02:46] VITALS: BP 96/51; PULSE 63; RESP 16
[2018-05-12 03:37] VITALS: BP 102/60
[2018-05-12] MEDS ORDERED: PANTOPRAZOLE (EC) 40 MG TAB PO SCH (06:00)
[2018-05-12] MEDS: ONDANSETRON 4 MG INJ IV PRN ×2 (06:05→18:04)
[2018-05-12 08:00] VITALS: BP 111/76; PULSE 84; RESP 20
[2018-05-12] MEDS: INSULIN ASPART [NOVOLOG] 3 ML PEN SC SCH ×7 (08:58→21:00)
[2018-05-12] MEDS: HEPARIN 5,000 UNIT/1 ML VIAL SC SCH ×2 (08:59→21:22)
[2018-05-12] MEDS: DOCUSATE SODIUM 100 MG CAP PO SCH ×3 (09:00→21:00)
[2018-05-12] MEDS: SODIUM HYPOCHLORITE (1/40) 1 APPLIC BTL IRR SCH (09:00)
[2018-05-12] MEDS: POLYETHYLENE GLYCOL 17 GM PACKET PO SCH (09:00)
[2018-05-12] MEDS: LACTOBACILLUS RHAMNOSUS CAP PO SCH ×3 (09:01→17:52)
[2018-05-12] MEDS: PANTOPRAZOLE (EC) 40 MG TAB PO SCH (09:02)
[2018-05-12] MEDS: metFORMIN 500 MG TAB PO SCH ×2 (09:02→17:53)
[2018-05-12] MEDS: LINAGLIPTIN 5 MG TABLET PO SCH (09:02)
[2018-05-12] MEDS: ZYVOX 600 MG TAB PO SCH ×2 (09:02→21:22)
[2018-05-12] MEDS: FLUCONAZOLE 200 MG TAB PO SCH (09:02)
--- NOTE | 2018-05-12 09:16 | PN ---
Date/Time of Note Date/Time of Note DATE: 05/12/18 TIME: 09:16 Assessment/Plan VTE Prophylaxis Risk score (from Ns)>0 risk: 6 SCD applied (from [facility] [place]): No SCD contraindicated: other Pharmacological prophylaxis: LMWH Lines/Catheters IV Catheter Type (from [place]): PICC Line Central line still needed: Yes Urinary Cath still in place: No Assessment/Plan Assessment/Plan 1. Left foot wound with osteomyelitis - Podiatry on board and appreciate recommendations. Continue all care with limb salvage goal - Status post multiple debridement and surgical correction - Patient refusing amputation per podiatry - We will need antibiotics until 06/13/18 - ID on board for antibiotic management 2. Diabetes mellitus - Continue Insulin, ISS and accuchecks 3. Dyslipidemia - Continue home meds 4. Disposition - SNF placement for continued IV antibiotics Result Diagram: 05/12/18 0453 05/12/18 0453 Results 24hrs Laboratory Tests Test 05/11/18 11:48 05/11/18 14:19 05/11/18 17:22 05/11/18 20:45 Bedside Glucose 151 129 98 Erythrocyte 70 H Sedimentation Rate C-Reactive Protein 2.9 H Test 05/12/18 04:53 05/12/18 08:36 White Blood Count 7.5 # Red Blood Count 3.07 L Hemoglobin 8.5 L Hematocrit 27.1 L Mean Corpuscular 88.3 Volume Mean Corpuscular 27.7 L Hemoglobin Mean Corpuscular 31.4 L Hemoglobin Concent Red Cell 13.5 Distribution Width Platelet Count 292 Mean Platelet Volume 9.9 Immature 1.200 H Granulocytes % Neutrophils % 55.4 Lymphocytes % 32.4 Monocytes % 7.4 Eosinophils % 3.1 Basophils % 0.5 Nucleated Red Blood 0.0 Cells % Immature 0.090 H Granulocytes # Neutrophils # 4.2 Lymphocytes # 2.4 Monocytes # 0.6 Eosinophils # 0.2 Basophils # 0.0 Nucleated Red Blood 0.0 Cells # Sodium Level 136 Potassium Level 4.2 Chloride Level 106 Carbon Dioxide Level 18 L Anion Gap 12 Blood Urea Nitrogen 26 H Creatinine 0.98 Glucose Level 139 Calcium Level 8.6 Phosphorus Level 3.4 Magnesium Level 1.8 Albumin 2.9 L Bedside Glucose 181 Subjective 24 Hr Interval Summary Free Text/Dictation Patient states he's feeling better this am but states medication he gets every 6 hours if causing his insomnia. Working well with PT. Exam/Review of Systems Exam Vitals Vital Signs Date Temp Pulse Resp B/P (MAP) Pulse Ox O2 O2 Flow FiO2 Time Delivery Rate 05/12/18 97.8 84 20 111/76 98 08:00 (88) 05/11/18 Room Air 14:00 05/11/18 2.0 13:20 Intake and Output 05/11/18 05/11/18 05/12/18 1515:00 23:00 07:00 IntakeIntake Total 1150 ml 350 ml OutputOutput Total 1100 ml 400 ml 300 ml BalanceBalance 50 ml -50 ml -300 ml Exam General: Patient is laying in bed and answers questions appropriately Neck: Supple, nontender, midline Respiratory: Clear to auscultation bilaterally. no wheezing Cardiovascular: regular rate and rhythm, no obvious murmurs Gastrointestinal: soft, non-tender to palpation, bowel sounds heard. 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: Moves all extremities spontaneously Skin: Left foot bandaged, CDI, casted Results Results 24hrs Laboratory Tests Test 05/11/18 11:48 05/11/18 14:19 05/11/18 17:22 05/11/18 20:45 Bedside Glucose 151 129 98 Erythrocyte 70 H Sedimentation Rate C-Reactive Protein 2.9 H Test 05/12/18 04:53 05/12/18 08:36 White Blood Count 7.5 # Red Blood Count 3.07 L Hemoglobin 8.5 L Hematocrit 27.1 L Mean Corpuscular 88.3 Volume Mean Corpuscular 27.7 L Hemoglobin Mean Corpuscular 31.4 L Hemoglobin Concent Red Cell 13.5 Distribution Width Platelet Count 292 Mean Platelet Volume 9.9 Immature 1.200 H Granulocytes % Neutrophils % 55.4 Lymphocytes % 32.4 Monocytes % 7.4 Eosinophils % 3.1 Basophils % 0.5 Nucleated Red Blood 0.0 Cells % Immature 0.090 H Granulocytes # Neutrophils # 4.2 Lymphocytes # 2.4 Monocytes # 0.6 Eosinophils # 0.2 Basophils # 0.0 Nucleated Red Blood 0.0 Cells # Sodium Level 136 Potassium Level 4.2 Chloride Level 106 Carbon Dioxide Level 18 L Anion Gap 12 Blood Urea Nitrogen 26 H Creatinine 0.98 Glucose Level 139 Calcium Level 8.6 Phosphorus Level 3.4 Magnesium Level 1.8 Albumin 2.9 L Bedside Glucose 181 Medications Medication Current Medications IV Flush (NS 3 ml) 3 ml PER PROTOCOL IV ; Start 04/29/18 at 19:00 Acetaminophen/ Hydrocodone Bitart ([place] (5/325)) 2 tab Q6H PRN PO .SEVERE PAIN 7-10 Last administered on 05/01/18 11:42; Admin Dose 2 TAB; Start 04/29/18 at 19:00 Heparin Sodium (Porcine) (Heparin (5000 Units/1ml)) 5,000 unit Q12 SC Last administered on 05/12/18 08:59; Admin Dose 5,000 UNIT; Start 04/29/18 at 21:00 Ondansetron HCl (Zofran Inj) 4 mg Q4H PRN IV NAUSEA AND/OR VOMITING Last admin istered on 05/12/18 06:05; Admin Dose 4 MG; Start 04/30/18 at 05:00 Sodium Hypochlorite (Dakin'S (Dilute )) 1 applic DAILY IRR Last administered on 05/11/18 08:39; Admin Dose 1 APPLIC; Start 04/30/18 at 15:00 Albuterol/ Ipratropium (Duoneb) 3 ml Q4H RESP THERAPY PRN HHN SHORTNESS OF BREATH Last administered on 05/04/18 17:15; Admin Dose 3 ML; Start 04/30/18 at 20:00 Ceftriaxone Sodium 50 ml @ 100 mls/hr Q24H IVPB Last administered on 05/11/18 17:27; Admin Dose 100 MLS/HR; Start 05/02/18 at 17:30 Linezolid (Zyvox) 600 mg BID PO Last administered on 05/12/18 09:02; Admin Dose 600 MG; Start 05/02/18 at 21:00 Docusate Sodium (Colace) 100 mg BID PO Last administered on 05/12/18 09:02; Admin Dose 100 MG; Start 05/02/18 at 21:00 Polyethylene Glycol (Miralax) 17 gm DAILY PO Last administered on 05/10/18 09:00; Admin Dose 17 GM; Start 05/02/18 at 20:30 Diagnostic Test (Pha) (Accu-Chek) 1 ea AC MEALS AND BEDTIME XX Last administered on 05/11/18 17:24; Admin Dose 1 EA; Start 05/03/18 at 17:35 Miscellaneous Information 1 ea NOTE XX ; Start 05/03/18 at 14:30 Glucose (Glutose) 15 gm Q15M PRN PO DECREASED GLUCOSE; Start 05/03/18 at 14:30 Glucose (Glutose) 22.5 gm Q15M PRN PO DECREASED GLUCOSE; Start 05/03/18 at 14:30 Dextrose (D50w Syringe) 25 ml Q15M PRN IV DECREASED GLUCOSE; Start 05/03/18 at 14:30 Dextrose (D50w Syringe) 50 ml Q15M PRN IV DECREASED GLUCOSE; Start 05/03/18 at 14:30 Glucagon (Glucagen) 1 mg Q15M PRN IM DECREASED GLUCOSE; Start 05/03/18 at 14:30 Glucose (Glutose) 15 gm Q15M PRN BUCCAL DECREASED GLUCOSE; Start 05/03/18 at 14:30 Metronidazole (Flagyl) 500 mg Q6 PO Last administered on 05/12/18at 06:05; Admin Dose 500 MG; Start 05/06/18 at 18:00 IV Flush (NS 10 ml) 10 ml PRN PRN IV IV PROTOCOL; Start 05/08/18 at 15:30 Fluconazole (Diflucan) 200 mg DAILY PO Last administered on 05/12/18 09:02; Admin Dose 200 MG; Start 05/09/18 at 09:00 Insulin Aspart (Novolog Insulin Pen) NOVOLOG *MILD* ALGORITHM WITH MEALS BEDTIME SC Last administered on 05/12/18at 08:58; Admin Dose 2 UNIT; Start 05/09/18 at 08:00 Diagnostic Test (Pha) (Accu-Chek) 1 ea 02 XX Last administered on 05/10/18at 02:35; Admin Dose 1 EA; Start 05/09/18 at 02:00 Pantoprazole (Protonix Tab) 40 mg DAILY PO Last administered on 05/12/18 09:02; Admin Dose 40 MG; Start 05/09/18 at 06:00 Metformin HCl (Glucophage) 1,000 mg BID WITH MEALS PO Last administered on 05/12/18 09:02; Admin Dose 1,000 MG; Start 05/10/18 at 08:00 Linagliptin (Tradjenta) 5 mg DAILY PO Last administered on 05/12/18at 09:02; Admin Dose 5 MG; Start 05/09/18 at 19:30 Insulin Aspart (Novolog Insulin Pen) 13 unit WITH MEALS SC Last administered on 05/12/18at 08:59; Admin Dose 13 UNIT; Start 05/10/18 at 11:30 Lactobacillus Acidophilus/ Rhamnosus (Culturelle) 1 cap WITH MEALS PO Last administered on 05/12/18at 09:01; Admin Dose 1 CAP; Start 05/11/18 at 11:30 Trazodone HCl (Desyrel) 50 mg HS PO Last administered on 05/11/18at 20:52; Admin Dose 50 MG; Start 05/11/18 at 21:00 Insulin Glargine (Lantus) 35 units DAILY@2000 SC ; Start 05/11/18 at 20:00 KATIE RUTLEDGE MD May 12, 2018 09:16
[2018-05-12 14:00] VITALS: BP 106/56; PULSE 64; RESP 20
--- NOTE | 2018-05-12 14:39 | CONS ---
Assessment/Plan Assessment/Plan Hospital Course (Demo Recall) Looks comfortable, no fevers Wound culture grew VRE E. coli Corynebacterium species and Bacteroides fragilis Antimicrobials: Zyvox Rocephin, Flagyl PHYSICAL EXAMINATION: GENERAL: This is a well-developed, well-nourished, middle-aged man who is awake, in no distress. HEENT: Head is atraumatic, normocephalic. NECK: Supple. CHEST: Rise symmetrical. Breath sounds diminished to bases. HEART: S1, S2. ABDOMEN: Soft. Bowel tones are present. EXTREMITIES: With left extremity in a cast Assessment: 1. 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 Diabetes 3. Obesity 4. S/p ALESSANDRO Plan: Remains stable, pending discharge arrangements on current antibiotics for 6 weeks==> last dose June 19. We can switch patient's Zyvox to daptomycin if it is easier to arrange and monitor CK, monitor plt count Consultation Date/Type/Reason Admit Date/Time Apr 29, 2018 at 18:18 Initial Consult Date Type of Consult id Date/Time of Note DATE: 05/12/18 TIME: 14:37 Exam/Review of Systems Exam Vitals Vital Signs Date Temp Pulse Resp B/P (MAP) Pulse Ox O2 O2 Flow FiO2 Time Delivery Rate 05/12/18 97.8 84 20 111/76 98 08:00 (88) 05/11/18 Room Air 14:00 05/11/18 2.0 13:20 Intake and Output 05/11/18 05/11/18 05/12/18 1515:00 23:00 07:00 IntakeIntake Total 1150 ml 350 ml OutputOutput Total 1100 ml 400 ml 300 ml BalanceBalance 50 ml -50 ml -300 ml Results Result Diagram: 05/12/18 0453 05/12/18 0453 Results 24hrs Laboratory Tests Test 05/11/18 17:22 05/11/18 20:45 05/12/18 04:53 05/12/18 08:36 Bedside Glucose 129 98 181 White Blood Count 7.5 # Red Blood Count 3.07 L Hemoglobin 8.5 L Hematocrit 27.1 L Mean Corpuscular 88.3 Volume Mean Corpuscular 27.7 L Hemoglobin Mean Corpuscular 31.4 L Hemoglobin Concent Red Cell 13.5 Distribution Width Platelet Count 292 Mean Platelet Volume 9.9 Immature 1.200 H Granulocytes % Neutrophils % 55.4 Lymphocytes % 32.4 Monocytes % 7.4 Eosinophils % 3.1 Basophils % 0.5 Nucleated Red Blood 0.0 Cells % Immature 0.090 H Granulocytes # Neutrophils # 4.2 Lymphocytes # 2.4 Monocytes # 0.6 Eosinophils # 0.2 Basophils # 0.0 Nucleated Red Blood 0.0 Cells # Sodium Level 136 Potassium Level 4.2 Chloride Level 106 Carbon Dioxide Level 18 L Anion Gap 12 Blood Urea Nitrogen 26 H Creatinine 0.98 Glucose Level 139 Calcium Level 8.6 Phosphorus Level 3.4 Magnesium Level 1.8 Albumin 2.9 L Test 05/12/18 12:42 Bedside Glucose 178 Medications Medication Current Medications IV Flush (NS 3 ml) 3 ml PER PROTOCOL IV ; Start 04/29/18 at 19:00 Acetaminophen/ Hydrocodone Bitart ([place] (5/325)) 2 tab Q6H PRN PO .SEVERE PAIN 7-10 Last administered on 05/01/18 11:42; Admin Dose 2 TAB; Start 04/29/18 at 19:00 Heparin Sodium (Porcine) (Heparin (5000 Units/1ml)) 5,000 unit Q12 SC Last administered on 05/12/18 08:59; Admin Dose 5,000 UNIT; Start 04/29/18 at 21:00 Ondansetron HCl (Zofran Inj) 4 mg Q4H PRN IV NAUSEA AND/OR VOMITING Last administered on 05/12/18 06:05; Admin Dose 4 MG; Start 04/30/18 at 05:00 Sodium Hypochlorite (Dakin'S (Dilute )) 1 applic DAILY IRR Last administered on 05/11/18 08:39; Admin Dose 1 APPLIC; Start 04/30/18 at 15:00 Albuterol/ Ipratropium (Duoneb) 3 ml Q4H RESP THERAPY PRN HHN SHORTNESS OF BREATH Last administered on 05/04/18 17:15; Admin Dose 3 ML; Start 04/30/18 at 20:00 Ceftriaxone Sodium 50 ml @ 100 mls/hr Q24H IVPB Last administered on 05/11/18 17:27; Admin Dose 100 MLS/HR; Start 05/02/18 at 17:30 Linezolid (Zyvox) 600 mg BID PO Last administered on 05/12/18 09:02; Admin Dose 600 MG; Start 05/02/18 at 21:00 Docusate Sodium (Colace) 100 mg BID PO Last administered on 05/11/18at 20:52; Admin Dose 100 MG; Start 05/02/18 at 21:00 Polyethylene Glycol (Miralax) 17 gm DAILY PO Last administered on 05/10/18 09:00; Admin Dose 17 GM; Start 05/02/18 at 20:30 Diagnostic Test (Pha) (Accu-Chek) 1 ea AC MEALS AND BEDTIME XX Last administered on 05/11/18at 17:24; Admin Dose 1 EA; Start 05/03/18 at 17:35 Miscellaneous Information 1 ea NOTE XX ; Start 05/03/18 at 14:30 Glucose (Glutose) 15 gm Q15M PRN PO DECREASED GLUCOSE; Start 05/03/18 at 14:30 Glucose (Glutose) 22.5 gm Q15M PRN PO DECREASED GLUCOSE; Start 05/03/18 at 14:30 Dextrose (D50w Syringe) 25 ml Q15M PRN IV DECREASED GLUCOSE; Start 05/03/18 at 14:30 Dextrose (D50w Syringe) 50 ml Q15M PRN IV DECREASED GLUCOSE; Start 05/03/18 at 14:30 Glucagon (Glucagen) 1 mg Q15M PRN IM DECREASED GLUCOSE; Start 05/03/18 at 14:30 Glucose (Glutose) 15 gm Q15M PRN BUCCAL DECREASED GLUCOSE; Start 05/03/18 at 14:30 Metronidazole (Flagyl) 500 mg Q6 PO Last administered on 05/12/18at 12:56; Admin Dose 500 MG; Start 05/06/18 at 18:00 IV Flush (NS 10 ml) 10 ml PRN PRN IV IV PROTOCOL; Start 05/08/18 at 15:30 Fluconazole (Diflucan) 200 mg DAILY PO Last administered on 05/12/18 09:02; Admin Dose 200 MG; Start 05/09/18 at 09:00 Insulin Aspart (Novolog Insulin Pen) NOVOLOG *MILD* ALGORITHM WITH MEALS BEDTIME SC Last administered on 05/12/18at 12:45; Admin Dose 1 UNIT; Start 05/09/18 at 08:00 Diagnostic Test (Pha) (Accu-Chek) 1 ea 02 XX Last administered on 05/10/18at 02:35; Admin Dose 1 EA; Start 05/09/18 at 02:00 Pantoprazole (Protonix Tab) 40 mg DAILY PO Last administered on 05/12/18 09:02; Admin Dose 40 MG; Start 05/09/18 at 06:00 Metformin HCl (Glucophage) 1,000 mg BID WITH MEALS PO Last administered on 05/12/18 09:02; Admin Dose 1,000 MG; Start 05/10/18 at 08:00 Linagliptin (Tradjenta) 5 mg DAILY PO Last administered on 05/12/18 09:02; Admin Dose 5 MG; Start 05/09/18 at 19:30 Insulin Aspart (Novolog Insulin Pen) 13 unit WITH MEALS SC Last administered on 05/12/18 12:46; Admin Dose 13 UNIT; Start 05/10/18 at 11:30 Lactobacillus Acidophilus/ Rhamnosus (Culturelle) 1 cap WITH MEALS PO Last administered on 05/12/18at 12:56; Admin Dose 1 CAP; Start 05/11/18 at 11:30 Trazodone HCl (Desyrel) 50 mg HS PO Last administered on 05/11/18at 20:52; Admin Dose 50 MG; Start 05/11/18 at 21:00 Insulin Glargine (Lantus) 35 units DAILY@2000 SC ; Start 05/11/18 at 20:00 KITTY DUMONT NP May 12, 2018 14:39
[2018-05-12] MEDS: CEFTRIAXONE 1 GM/50 ML (PMX) 50 ML IVPB SCH (17:52)
[2018-05-12 20:00] VITALS: BP 92/54; PULSE 81; RESP 19
[2018-05-12] MEDS: INSULIN GLARGINE [LANTus] (100 UNITS/ML) SYG SC SCH (21:21)
[2018-05-12] MEDS: traZODone 50 MG TAB PO SCH (21:22)
[2018-05-13] MEDS: metroNIDAZOLE 500 MG TAB PO SCH ×4 (00:10→17:52)
[2018-05-13] MEDS: ACCU-CHEK XX SCH ×5 (02:00→20:32)
[2018-05-13 02:17] VITALS: BP 122/60; PULSE 83; RESP 19
[2018-05-13 08:20] VITALS: BP 109/64; PULSE 86; RESP 18
[2018-05-13] MEDS: ONDANSETRON 4 MG INJ IV PRN (08:36)
[2018-05-13] MEDS: INSULIN ASPART [NOVOLOG] 3 ML PEN SC SCH ×7 (08:38→20:32)
[2018-05-13] MEDS: metFORMIN 500 MG TAB PO SCH ×2 (08:39→17:52)
[2018-05-13] MEDS: DOCUSATE SODIUM 100 MG CAP PO SCH ×3 (09:00→20:07)
[2018-05-13] MEDS: POLYETHYLENE GLYCOL 17 GM PACKET PO SCH ×2 (09:00→09:43)
[2018-05-13] MEDS: SODIUM HYPOCHLORITE (1/40) 1 APPLIC BTL IRR SCH (09:00)
--- NOTE | 2018-05-13 09:15 | PN ---
Date/Time of Note Date/Time of Note DATE: 05/13/18 TIME: 09:14 Assessment/Plan VTE Prophylaxis Risk score (from Nsg)>0 risk: 10 SCD applied (from Nsg): Yes Pharmacological prophylaxis: LMWH Lines/Catheters IV Catheter Type (from Nrsg): PICC Line Central line still needed: Yes Urinary Cath still in place: No Assessment/Plan Assessment/Plan 1. Left foot wound with osteomyelitis- stable - Podiatry on board and appreciate recommendations. Continue all current care given request for limb salvage by patient - Status post multiple debridement and surgical correction - We will need antibiotics until 06/13/18 - ID on board for antibiotic management and appreciate consultation 2. Diabetes mellitus - Continue Insulin, ISS and accuchecks 3. Dyslipidemia - Continue home meds 4. Disposition - CM on board for SNF placement and stable for discharge once accepting facility found. patient requires IV therapy until 06/13 Result Diagram: 05/12/18 0453 05/12/18 0453 Results 24hrs Laboratory Tests Test 05/12/18 12:42 05/12/18 17:46 05/12/18 21:18 05/13/18 07:52 Bedside Glucose 178 123 124 151 Subjective 24 Hr Interval Summary Free Text/Dictation Patient states hes feeling better but still with some nausea. States his sleep pattern has improved but still having difficulty staying asleep. No acute overnight events. Exam/Review of Systems Exam Vitals Vital Signs Date Temp Pulse Resp B/P (MAP) Pulse Ox O2 O2 Flow FiO2 Time Delivery Rate 05/13/18 98.3 86 18 109/64 98 Room Air 08:20 (79) 05/11/18 2.0 13:20 Intake and Output 05/12/18 05/12/18 05/13/18 1515:00 23:00 07:00 IntakeIntake Total 1180 ml 720 ml 350 ml OutputOutput Total 800 ml 2 ml 500 ml BalanceBalance 380 ml 718 ml -150 ml Exam General: Patient is laying in bed and answers questions appropriately Neck: Supple, nontender, midline Respiratory: Clear to auscultation bilaterally. no wheezing Cardiovascular: regular rate and rhythm, no obvious murmurs Gastrointestinal: soft, non-tender to palpation, bowel sounds heard. 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: Moves all extremities spontaneously Skin: Left foot bandaged, CDI, casted Results Results 24hrs Laboratory Tests Test 05/12/18 12:42 05/12/18 17:46 05/12/18 21:18 05/13/18 07:52 Bedside Glucose 178 123 124 151 Medications Medication Current Medications IV Flush (NS 3 ml) 3 ml PER PROTOCOL IV ; Start 04/29/18 at 19:00 Acetaminophen/ Hydrocodone Bitart ([place] (5/325)) 2 tab Q6H PRN PO .SEVERE PAIN 7-10 Last administered on 05/01/18 11:42; Admin Dose 2 TAB; Start 04/29/18 at 19:00 Heparin Sodium (Porcine) (Heparin (5000 Units/1ml)) 5,000 unit Q12 SC Last administered on 05/12/18 21:22; Admin Dose 5,000 UNIT; Start 04/29/18 at 21:00 Ondansetron HCl (Zofran Inj) 4 mg Q4H PRN IV NAUSEA AND/OR VOMITING Last administered on 05/13/18 08:36; Admin Dose 4 MG; Start 04/30/18 at 05:00 Sodium Hypochlorite (Dakin'S (Dilute 40)) 1 applic DAILY IRR Last administered on 05/11/18 08:39; Admin Dose 1 APPLIC; Start 04/30/18 at 15:00 Albuterol/ Ipratropium (Duoneb) 3 ml Q4H RESP THERAPY PRN HHN SHORTNESS OF BREATH Last administered on 05/04/18 17:15; Admin Dose 3 ML; Start 04/30/18 at 20:00 Ceftriaxone Sodium 50 ml @ 100 mls/hr Q24H IVPB Last administered on 05/12/18 17:52; Admin Dose 100 MLS/HR; Start 05/02/18 at 17:30 Linezolid (Zyvox) 600 mg BID PO Last administered on 05/12/18 21:22; Admin Dose 600 MG; Start 05/02/18 at 21:00 Docusate Sodium (Colace) 100 mg BID PO Last administered on 05/11/18 20:52; Admin Dose 100 MG; Start 05/02/18 at 21:00 Polyethylene Glycol (Miralax) 17 gm DAILY PO Last administered on 05/10/18 09:00; Admin Dose 17 GM; Start 05/02/18 at 20:30 Diagnostic Test (Pha) (Accu-Chek) 1 ea AC MEALS AND BEDTIME XX Last administered on 05/11/18at 17:24; Admin Dose 1 EA; Start 05/03/18 at 17:35 Miscellaneous Information 1 ea NOTE XX ; Start 05/03/18 at 14:30 Glucose (Glutose) 15 gm Q15M PRN PO DECREASED GLUCOSE; Start 05/03/18 at 14:30 Glucose (Glutose) 22.5 gm Q15M PRN PO DECREASED GLUCOSE; Start 05/03/18 at 14:30 Dextrose (D50w Syringe) 25 ml Q15M PRN IV DECREASED GLUCOSE; Start 05/03/18 at 14:30 Dextrose (D50w Syringe) 50 ml Q15M PRN IV DECREASED GLUCOSE; Start 05/03/18 at 14:30 Glucagon (Glucagen) 1 mg Q15M PRN IM DECREASED GLUCOSE; Start 05/03/18 at 14:30 Glucose (Glutose) 15 gm Q15M PRN BUCCAL DECREASED GLUCOSE; Start 05/03/18 at 14:30 Metronidazole (Flagyl) 500 mg Q6 PO Last administered on 05/13/18at 05:28; Admin Dose 500 MG; Start 05/06/18 at 18:00 IV Flush (NS 10 ml) 10 ml PRN PRN IV IV PROTOCOL; Start 05/08/18 at 15:30 Fluconazole (Diflucan) 200 mg DAILY PO Last administered on 05/12/18at 09:02; Admin Dose 200 MG; Start 05/09/18 at 09:00 Insulin Aspart (Novolog Insulin Pen) NOVOLOG *MILD* ALGORITHM WITH MEALS BEDTIME SC Last administered on 05/13/18at 08:38; Admin Dose 1 UNIT; Start 05/09/18 at 08:00 Diagnostic Test (Pha) (Accu-Chek) 1 ea 02 XX Last administered on 05/10/18at 02:35; Admin Dose 1 EA; Start 05/09/18 at 02:00 Pantoprazole (Protonix Tab) 40 mg DAILY PO Last administered on 05/12/18at 09:02; Admin Dose 40 MG; Start 05/09/18 at 06:00 Metformin HCl (Glucophage) 1,000 mg BID WITH MEALS PO Last administered on 05/13/18at 08:39; Admin Dose 1,000 MG; Start 05/10/18 at 08:00 Linagliptin (Tradjenta) 5 mg DAILY PO Last administered on 05/12/18 09:02; Admin Dose 5 MG; Start 05/09/18 at 19:30 Insulin Aspart (Novolog Insulin Pen) 13 unit WITH MEALS SC Last administered on 05/13/18 08:39; Admin Dose 13 UNIT; Start 05/10/18 at 11:30 Lactobacillus Acidophilus/ Rhamnosus (Culturelle) 1 cap WITH MEALS PO Last administered on 05/12/18 17:52; Admin Dose 1 CAP; Start 05/11/18 at 11:30 Trazodone HCl (Desyrel) 50 mg HS PO Last administered on 05/12/18 21:22; Admin Dose 50 MG; Start 05/11/18 at 21:00 Insulin Glargine (Lantus) 35 units DAILY@2000 SC Last administered on 05/12/18 21:21; Admin Dose 35 UNITS; Start 05/11/18 at 20:00 KATIE RUTLEDGE MD May 13, 2018 09:15
[2018-05-13] MEDS: ZYVOX 600 MG TAB PO SCH ×2 (09:40→20:07)
[2018-05-13] MEDS: PANTOPRAZOLE (EC) 40 MG TAB PO SCH (09:40)
[2018-05-13] MEDS: FLUCONAZOLE 200 MG TAB PO SCH (09:41)
[2018-05-13] MEDS: LINAGLIPTIN 5 MG TABLET PO SCH (09:41)
[2018-05-13] MEDS: HEPARIN 5,000 UNIT/1 ML VIAL SC SCH ×2 (09:42→20:10)
[2018-05-13] MEDS: LACTOBACILLUS RHAMNOSUS CAP PO SCH ×3 (09:43→17:51)
--- NOTE | 2018-05-13 11:42 | CONS ---
Assessment/Plan Assessment/Plan Hospital Course (Demo Recall) Looks comfortable, no fevers Wound culture grew VRE E. coli Corynebacterium species and Bacteroides fragilis Antimicrobials: Zyvox Rocephin,Flagyl PHYSICAL EXAMINATION: GENERAL: This is a well-developed, well-nourished, middle-aged man who is awake, in no distress. HEENT: Head is atraumatic, normocephalic. NECK: Supple. CHEST: Rise symmetrical. Breath sounds diminished to bases. HEART: S1, S2. ABDOMEN: Soft. Bowel tones are present. EXTREMITIES: With left extremity in a cast Assessment: 1. Left diabetic foot ulceration with ongoing osteomyelitis and cellulitis, s/p surgical intervention 05/08/18 2. Diabetes 3. Obesity 4. S/p ALESSANDRO Plan: Remains stable, pending discharge arrangements on current antibiotics for 6 weeks==> last dose June 19. We can switch patient's Zyvox to daptomycin if it is easier to arrange and monitor CK, monitor plt count. [place] Consultation Date/Type/Reason Admit Date/Time Apr 29, 2018 at 18:18 Initial Consult Date Type of Consult id Date/Time of Note DATE: 05/13/18 TIME: 11:39 Exam/Review of Systems Exam Vitals Vital Signs Date Temp Pulse Resp B/P (MAP) Pulse Ox O2 O2 Flow FiO2 Time Delivery Rate 05/13/18 98.3 86 18 109/64 98 Room Air 08:20 (79) 05/11/18 2.0 13:20 Intake and Output 05/12/18 05/12/18 05/13/18 1515:00 23:00 07:00 IntakeIntake Total 1180 ml 720 ml 350 ml OutputOutput Total 800 ml 2 ml 500 ml BalanceBalance 380 ml 718 ml -150 ml Results Result Diagram: 05/12/18 0453 05/12/18 0453 Results 24hrs Laboratory Tests Test 05/12/18 12:42 05/12/18 17:46 05/12/18 21:18 05/13/18 07:52 Bedside Glucose 178 123 124 151 Medications Medication Current Medications IV Flush (NS 3 ml) 3 ml PER PROTOCOL IV ; Start 04/29/18 at 19:00 Acetaminophen/ Hydrocodone Bitart ([place] (5/325)) 2 tab Q6H PRN PO .SEVERE PAIN 7-10 Last administered on 05/01/18 11:42; Admin Dose 2 TAB; Start 04/29/18 at 19:00 Heparin Sodium (Porcine) (Heparin (5000 Units/1ml)) 5,000 unit Q12 SC Last administered on 05/13/18 09:42; Admin Dose 5,000 UNIT; Start 04/29/18 at 21:00 Ondansetron HCl (Zofran Inj) 4 mg Q4H PRN IV NAUSEA AND/OR VOMITING Last administered on 05/13/18 08:36; Admin Dose 4 MG; Start 04/30/18 at 05:00 Sodium Hypochlorite (Dakin'S (Dilute )) 1 applic DAILY IRR Last administered on 05/11/18 08:39; Admin Dose 1 APPLIC; Start 04/30/18 at 15:00 Albuterol/ Ipratropium (Duoneb) 3 ml Q4H RESP THERAPY PRN HHN SHORTNESS OF BREATH Last administered on 05/04/18 17:15; Admin Dose 3 ML; Start 04/30/18 at 20:00 Ceftriaxone Sodium 50 ml @ 100 mls/hr Q24H IVPB Last administered on 05/12/18 17:52; Admin Dose 100 MLS/HR; Start 05/02/18 at 17:30 Linezolid (Zyvox) 600 mg BID PO Last administered on 05/13/18 09:40; Admin Dose 600 MG; Start 05/02/18 at 21:00 Docusate Sodium (Colace) 100 mg BID PO Last administered on 05/11/18 20:52; Admin Dose 100 MG; Start 05/02/18 at 21:00 Polyethylene Glycol (Miralax) 17 gm DAILY PO Last administered on 05/10/18 0 9:00; Admin Dose 17 GM; Start 05/02/18 at 20:30 Diagnostic Test (Pha) (Accu-Chek) 1 ea AC MEALS AND BEDTIME XX Last administered on 05/13/18 07:30; Admin Dose 1 EA; Start 05/03/18 at 17:35 Miscellaneous Information 1 ea NOTE XX ; Start 05/03/18 at 14:30 Glucose (Glutose) 15 gm Q15M PRN PO DECREASED GLUCOSE; Start 05/03/18 at 14:30 Glucose (Glutose) 22.5 gm Q15M PRN PO DECREASED GLUCOSE; Start 05/03/18 at 14:30 Dextrose (D50w Syringe) 25 ml Q15M PRN IV DECREASED GLUCOSE; Start 05/03/18 at 14:30 Dextrose (D50w Syringe) 50 ml Q15M PRN IV DECREASED GLUCOSE; Start 05/03/18 at 14:30 Glucagon (Glucagen) 1 mg Q15M PRN IM DECREASED GLUCOSE; Start 05/03/18 at 14:30 Glucose (Glutose) 15 gm Q15M PRN BUCCAL DECREASED GLUCOSE; Start 05/03/18 at 14:30 Metronidazole (Flagyl) 500 mg Q6 PO Last administered on 05/13/18at 05:28; Admin Dose 500 MG; Start 05/06/18 at 18:00 IV Flush (NS 10 ml) 10 ml PRN PRN IV IV PROTOCOL; Start 05/08/18 at 15:30 Fluconazole (Diflucan) 200 mg DAILY PO Last administered on 05/13/18 09:41; Admin Dose 200 MG; Start 05/09/18 at 09:00 Insulin Aspart (Novolog Insulin Pen) NOVOLOG *MILD* ALGORITHM WITH MEALS BEDTIME SC Last administered on 05/13/18 08:38; Admin Dose 1 UNIT; Start 05/09/18 at 08:00 Diagnostic Test (Pha) (Accu-Chek) 1 ea 02 XX Last administered on 05/10/18at 02:35; Admin Dose 1 EA; Start 05/09/18 at 02:00 Pantoprazole (Protonix Tab) 40 mg DAILY PO Last administered on 05/13/18 09:40; Admin Dose 40 MG; Start 05/09/18 at 06:00 Metformin HCl (Glucophage) 1,000 mg BID WITH MEALS PO Last administered on 05/13/18 08:39; Admin Dose 1,000 MG; Start 05/10/18 at 08:00 Linagliptin (Tradjenta) 5 mg DAILY PO Last administered on 05/13/18 09:41; Admin Dose 5 MG; Start 05/09/18 at 19:30 Insulin Aspart (Novolog Insulin Pen) 13 unit WITH MEALS SC Last administered on 05/13/18at 08:39; Admin Dose 13 UNIT; Start 05/10/18 at 11:30 Lactobacillus Acidophilus/ Rhamnosus (Culturelle) 1 cap WITH MEALS PO Last administered on 05/13/18at 09:43; Admin Dose 1 CAP; Start 05/11/18 at 11:30 Trazodone HCl (Desyrel) 50 mg HS PO Last administered on 05/12/18at 21:22; Admin Dose 50 MG; Start 05/11/18 at 21:00 Insulin Glargine (Lantus) 35 units DAILY@2000 SC Last administered on 05/12/18at 21:21; Admin Dose 35 UNITS; Start 05/11/18 at 20:00 KITTY DUMONT NP May 13, 2018 11:42
[2018-05-13 14:37] VITALS: BP 87/48; PULSE 94; RESP 18
[2018-05-13] MEDS: CEFTRIAXONE 1 GM/50 ML (PMX) 50 ML IVPB SCH (17:52)
[2018-05-13] MEDS ORDERED: traZODone 50 MG TAB ONE (19:49)
[2018-05-13 20:00] VITALS: BP 125/57; PULSE 116; RESP 19
[2018-05-13] MEDS: traZODone 50 MG TAB PO SCH (20:08)
[2018-05-13] MEDS: INSULIN GLARGINE [LANTus] (100 UNITS/ML) SYG SC SCH (20:11)
[2018-05-14] MEDS: metroNIDAZOLE 500 MG TAB PO SCH ×4 (00:53→17:27)
[2018-05-14 02:00] VITALS: BP 120/58; PULSE 92; RESP 18
[2018-05-14] MEDS: ACCU-CHEK XX SCH ×5 (02:00→20:41)
[2018-05-14] MEDS: INSULIN ASPART [NOVOLOG] 3 ML PEN SC SCH ×7 (08:00→20:41)
[2018-05-14] MEDS ORDERED: SOD CHLORIDE 0.9% 500 ML IV ONE (08:00)
[2018-05-14] MEDS: ONDANSETRON 4 MG INJ IV PRN ×2 (08:26→15:20)
[2018-05-14 08:48] VITALS: BP 82/57; PULSE 87; RESP 20
[2018-05-14] MEDS: SODIUM HYPOCHLORITE (1/40) 1 APPLIC BTL IRR SCH (09:00)
[2018-05-14] MEDS: DOCUSATE SODIUM 100 MG CAP PO SCH ×2 (09:00→20:45)
[2018-05-14] MEDS: POLYETHYLENE GLYCOL 17 GM PACKET PO SCH (09:00)
[2018-05-14] MEDS: LACTOBACILLUS RHAMNOSUS CAP PO SCH ×3 (09:09→17:27)
[2018-05-14] MEDS: metFORMIN 500 MG TAB PO SCH ×2 (09:09→17:27)
[2018-05-14] MEDS: PANTOPRAZOLE (EC) 40 MG TAB PO SCH (09:09)
[2018-05-14] MEDS: LINAGLIPTIN 5 MG TABLET PO SCH (09:09)
[2018-05-14] MEDS: HEPARIN 5,000 UNIT/1 ML VIAL SC SCH ×2 (09:11→20:40)
--- NOTE | 2018-05-14 09:13 | PN ---
Date/Time of Note Date/Time of Note DATE: 05/14/18 TIME: 09:13 Assessment/Plan VTE Prophylaxis Risk score (from Ns)>0 risk: 9 SCD applied (from Nsg): Yes Pharmacological prophylaxis: LMWH Lines/Catheters IV Catheter Type (from Nrsg): PICC Line Central line still needed: Yes Urinary Cath still in place: No Assessment/Plan Assessment/Plan 1. Left foot wound with osteomyelitis- stable - Podiatry on board and appreciate recommendations. Continue all current care given request for limb salvage by patient - Status post multiple debridement and surgical correction - We will need antibiotics until 06/13/18 - ID on board for antibiotic management and appreciate consultation 2. Diabetes mellitus - Continue Insulin, ISS and accuchecks 3. Dyslipidemia - Continue home meds 4. Disposition - Patient requested to discuss placement with CM given was not happy at last SNF when had to share a room. He would rather go home with HHPT if that is the case Result Diagram: 05/14/18 0613 05/14/18 0613 Results 24hrs Laboratory Tests Test 05/13/18 11:57 05/13/18 12:03 05/13/18 17:26 05/13/18 20:06 Bedside Glucose 230 H 186 139 Lab Scanned Report REFERENCE LAB Test 05/14/18 06:13 05/14/18 08:00 White Blood Count 7.0 Red Blood Count 3.21 L Hemoglobin 9.0 L Hematocrit 28.5 L Mean Corpuscular 88.8 Volume Mean Corpuscular 28.0 L Hemoglobin Mean Corpuscular 31.6 L Hemoglobin Concent Red Cell 13.9 Distribution Width Platelet Count 375 # Mean Platelet 9.1 Volume Immature 1.400 H Granulocytes % Neutrophils % 52.2 Lymphocytes % 35.4 Monocytes % 7.3 Eosinophils % 3.0 Basophils % 0.7 Nucleated Red 0.0 Blood Cells % Immature 0.100 H Granulocytes # Neutrophils # 3.7 Lymphocytes # 2.5 Monocytes # 0.5 Eosinophils # 0.2 Basophils # 0.1 Nucleated Red 0.0 Blood Cells # Sodium Level 137 Potassium Level 4.0 Chloride Level 108 Carbon Dioxide 18 L Level Anion Gap 11 Blood Urea 22 H Nitrogen Creatinine 1.16 Glucose Level 110 Calcium Level 9.1 Phosphorus Level 4.0 Magnesium Level 1.7 Albumin 3.1 L Bedside Glucose 126 Subjective 24 Hr Interval Summary Free Text/Dictation Patient states hes feeling better and slept well after given increased dose of Trazodone. Exam/Review of Systems Exam Vitals Vital Signs Date Temp Pulse Resp B/P (MAP) Pulse Ox O2 O2 Flow FiO2 Time Delivery Rate 05/14/18 98.3 87 20 82/57 (65) 100 Room Air 08:48 05/11/18 2.0 13:20 Intake and Output 05/13/18 05/13/18 05/14/18 1515:00 23:00 07:00 IntakeIntake Total 360 ml 530 ml 400 ml OutputOutput Total 300 ml 500 ml BalanceBalance 60 ml 530 ml -100 ml Exam General: Patient is laying in bed and answers questions appropriately Neck: Supple, nontender, midline Respiratory: Clear to auscultation bilaterally. no wheezing Cardiovascular: regular rate and rhythm, no obvious murmurs Gastrointestinal: soft, non-tender to palpation, bowel sounds heard. 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: Moves all extremities spontaneously Skin: Left foot bandaged, CDI, casted Results Results 24hrs Laboratory Tests Test 05/13/18 11:57 05/13/18 12:03 05/13/18 17:26 05/13/18 20:06 Bedside Glucose 230 H 186 139 Lab Scanned Report REFERENCE LAB Test 05/14/18 06:13 05/14/18 08:00 White Blood Count 7.0 Red Blood Count 3.21 L Hemoglobin 9.0 L Hematocrit 28.5 L Mean Corpuscular 88.8 Volume Mean Corpuscular 28.0 L Hemoglobin Mean Corpuscular 31.6 L Hemoglobin Concent Red Cell 13.9 Distribution Width Platelet Count 375 # Mean Platelet 9.1 Volume Immature 1.400 H Granulocytes % Neutrophils % 52.2 Lymphocytes % 35.4 Monocytes % 7.3 Eosinophils % 3.0 Basophils % 0.7 Nucleated Red 0.0 Blood Cells % Immature 0.100 H Granulocytes # Neutrophils # 3.7 Lymphocytes # 2.5 Monocytes # 0.5 Eosinophils # 0.2 Basophils # 0.1 Nucleated Red 0.0 Blood Cells # Sodium Level 137 Potassium Level 4.0 Chloride Level 108 Carbon Dioxide 18 L Level Anion Gap 11 Blood Urea 22 H Nitrogen Creatinine 1.16 Glucose Level 110 Calcium Level 9.1 Phosphorus Level 4.0 Magnesium Level 1.7 Albumin 3.1 L Bedside Glucose 126 Medications Medication Current Medications IV Flush (NS 3 ml) 3 ml PER PROTOCOL IV ; Start 04/29/18 at 19:00 Acetaminophen/ Hydrocodone Bitart ([place] (5/325)) 2 tab Q6H PRN PO .SEVERE PAIN 7-10 Last administered on 05/01/18 11:42; Admin Dose 2 TAB; Start 04/29/18 at 19:00 Heparin Sodium (Porcine) (Heparin (5000 Units/1ml)) 5,000 unit Q12 SC Last adm inistered on 05/13/18 20:10; Admin Dose 5,000 UNIT; Start 04/29/18 at 21:00 Ondansetron HCl (Zofran Inj) 4 mg Q4H PRN IV NAUSEA AND/OR VOMITING Last administered on 05/14/18 08:26; Admin Dose 4 MG; Start 04/30/18 at 05:00 Sodium Hypochlorite ([place]akin'S (Dilute )) 1 applic DAILY IRR Last administ ered on 05/11/18 08:39; Admin Dose 1 APPLIC; Start 04/30/18 at 15:00 Albuterol/ Ipratropium (Duoneb) 3 ml Q4H RESP THERAPY PRN HHN SHORTNESS OF BREATH Last administered on 05/04/18 17:15; Admin Dose 3 ML; Start 04/30/18 at 20:00 Ceftriaxone Sodium 50 ml @ 100 mls/hr Q24H IVPB Last administered on 05/13/18 17:52; Admin Dose 100 MLS/HR; Start 05/02/18 at 17:30 Linezolid (Zyvox) 600 mg BID PO Last administered on 05/13/18 20:07; Admin Dose 600 MG; Start 05/02/18 at 21:00 Docusate Sodium (Colace) 100 mg BID PO Last administered on 05/13/18 20:07; Admin Dose 100 MG; Start 05/02/18 at 21:00 Polyethylene Glycol (Miralax) 17 gm DAILY PO Last administered on 05/10/18 09:00; Admin Dose 17 GM; Start 05/02/18 at 20:30 Diagnostic Test (Pha) (Accu-Chek) 1 ea AC MEALS AND BEDTIME XX Last administ ered on 05/14/18 08:01; Admin Dose 1 EA; Start 05/03/18 at 17:35 Miscellaneous Information 1 ea NOTE XX ; Start 05/03/18 at 14:30 Glucose (Glutose) 15 gm Q15M PRN PO DECREASED GLUCOSE; Start 05/03/18 at 14:30 Glucose (Glutose) 22.5 gm Q15M PRN PO DECREASED GLUCOSE; Start 05/03/18 at 14:30 Dextrose (D50w Syringe) 25 ml Q15M PRN IV DECREASED GLUCOSE; Start 05/03/18 at 14:30 Dextrose (D50w Syringe) 50 ml Q15M PRN IV DECREASED GLUCOSE; Start 05/03/18 at 14:30 Glucagon (Glucagen) 1 mg Q15M PRN IM DECREASED GLUCOSE; Start 05/03/18 at 14:30 Glucose (Glutose) 15 gm Q15M PRN BUCCAL DECREASED GLUCOSE; Start 05/03/18 at 14:30 Metronidazole (Flagyl) 500 mg Q6 PO Last administered on 05/14/18at 05:49; Admin Dose 500 MG; Start 05/06/18 at 18:00 IV Flush (NS 10 ml) 10 ml PRN PRN IV IV PROTOCOL; Start 05/08/18 at 15:30 Insulin Aspart (Novolog Insulin Pen) NOVOLOG *MILD* ALGORITHM WITH MEALS BED TIME SC Last administered on 05/13/18 17:31; Admin Dose 2 UNIT; Start 05/09/18 at 08:00 Diagnostic Test (Pha) (Accu-Chek) 1 ea 02 XX Last administered on 05/10/18at 02:35; Admin Dose 1 EA; Start 05/09/18 at 02:00 Pantoprazole (Protonix Tab) 40 mg DAILY PO Last administered on 05/13/18at 09:40; Admin Dose 40 MG; Start 05/09/18 at 06:00 Metformin HCl (Glucophage) 1,000 mg BID WITH MEALS PO Last administered on 05/13/18at 17:52; Admin Dose 1,000 MG; Start 05/10/18 at 08:00 Linagliptin (Tradjenta) 5 mg DAILY PO Last administered on 05/13/18at 09:41; Admin Dose 5 MG; Start 05/09/18 at 19:30 Insulin Aspart (Novolog Insulin Pen) 13 unit WITH MEALS SC Last administered on 05/14/18at 08:31; Admin Dose 13 UNIT; Start 05/10/18 at 11:30 Lactobacillus Acidophilus/ Rhamnosus (Culturelle) 1 cap WITH MEALS PO Last administered on 05/13/18at 17:51; Admin Dose 1 CAP; Start 05/11/18 at 11:30 Insulin Glargine (Lantus) 35 units DAILY@2000 SC Last administered on 05/13/18at 20:11; Admin Dose 35 UNITS; Start 05/11/18 at 20:00 Trazodone HCl (Desyrel) 100 mg HS PO Last administered on 05/13/18at 20:08; Admin Dose 100 MG; Start 05/13/18 at 21:00 KATIE RUTLEDGE MD May 14, 2018 09:13
[2018-05-14] MEDS: ZYVOX 600 MG TAB PO SCH ×2 (09:15→20:37)
[2018-05-14 09:37] VITALS: BP 126/58; PULSE 85
--- NOTE | 2018-05-14 13:56 | CONS ---
Assessment/Plan Assessment/Plan Hospital Course (Demo Recall) Looks comfortable, no fevers Wound culture grew VRE E. coli Corynebacterium species and Bacteroides fragilis Antimicrobials: Zyvox Rocephin,Flagyl PHYSICAL EXAMINATION: GENERAL: This is a well-developed, well-nourished, middle-aged man who is awake, in no distress. HEENT: Head is atraumatic, normocephalic. NECK: Supple. CHEST: Rise symmetrical. Breath sounds diminished to bases. HEART: S1, S2. ABDOMEN: Soft. Bowel tones are present. EXTREMITIES: With left extremity in a cast Assessment: 1. Left diabetic foot ulceration with ongoing osteomyelitis and cellulitis, s/p surgical intervention 05/08/18 2. Diabetes 3. Obesity 4. S/p ALESSANDRO Plan: Remains stable, pending discharge arrangements on current antibiotics for 6 weeks==> last dose June 19. We can switch patient's Zyvox to daptomycin if it is easier to arrange and monitor CK, monitor plt count. Consultation Date/Type/Reason Admit Date/Time Apr 29, 2018 at 18:18 Initial Consult Date Type of Consult id Date/Time of Note DATE: 05/14/18 TIME: 13:56 Exam/Review of Systems Exam Vitals Vital Signs Date Temp Pulse Resp B/P (MAP) Pulse Ox O2 O2 Flow FiO2 Time Delivery Rate 05/14/18 85 126/58 09:37 (80) 05/14/18 98.3 20 100 Room Air 08:48 05/11/18 2.0 13:20 Intake and Output 05/13/18 05/13/18 05/14/18 1515:00 23:00 07:00 IntakeIntake Total 360 ml 530 ml 400 ml OutputOutput Total 300 ml 500 ml BalanceBalance 60 ml 530 ml -100 ml Results Result Diagram: 05/14/18 0613 05/14/18 0613 Results 24hrs Laboratory Tests Test 05/13/18 17:26 05/13/18 20:06 05/14/18 06:13 05/14/18 08:00 Bedside Glucose 186 139 126 White Blood Count 7.0 Red Blood Count 3.21 L Hemoglobin 9.0 L Hematocrit 28.5 L Mean Corpuscular 88.8 Volume Mean Corpuscular 28.0 L Hemoglobin Mean Corpuscular 31.6 L Hemoglobin Concent Red Cell 13.9 Distribution Width Platelet Count 375 # Mean Platelet Volume 9.1 Immature 1.400 H Granulocytes % Neutrophils % 52.2 Lymphocytes % 35.4 Monocytes % 7.3 Eosinophils % 3.0 Basophils % 0.7 Nucleated Red Blood 0.0 Cells % Immature 0.100 H Granulocytes # Neutrophils # 3.7 Lymphocytes # 2.5 Monocytes # 0.5 Eosinophils # 0.2 Basophils # 0.1 Nucleated Red Blood 0.0 Cells # Sodium Level 137 Potassium Level 4.0 Chloride Level 108 Carbon Dioxide Level 18 L Anion Gap 11 Blood Urea Nitrogen 22 H Creatinine 1.16 Glucose Level 110 Calcium Level 9.1 Phosphorus Level 4.0 Magnesium Level 1.7 Albumin 3.1 L Test 05/14/18 12:11 Bedside Glucose 139 Medications Medication Current Medications IV Flush (NS 3 ml) 3 ml PER PROTOCOL IV ; Start 04/29/18 at 19:00 Acetaminophen/ Hydrocodone Bitart ([place] (5/325)) 2 tab Q6H PRN PO .SEVERE PAIN 7-10 Last administered on 05/01/18 11:42; Admin Dose 2 TAB; Start 04/29/18 at 19:00 Heparin Sodium (Porcine) (Heparin (5000 Units/1ml)) 5,000 unit Q12 SC Last administered on 05/14/18 09:11; Admin Dose 5,000 UNIT; Start 04/29/18 at 21:00 Ondansetron HCl (Zofran Inj) 4 mg Q4H PRN IV NAUSEA AND/OR VOMITING Last administered on 05/14/18 08:26; Admin Dose 4 MG; Start 04/30/18 at 05:00 Sodium Hypochlorite (Dakin'S (Dilute )) 1 applic DAILY IRR Last adm inistered on 05/11/18 08:39; Admin Dose 1 APPLIC; Start 04/30/18 at 15:00 Albuterol/ Ipratropium (Duoneb) 3 ml Q4H RESP THERAPY PRN HHN SHORTNESS OF BREATH Last administered on 05/04/18 17:15; Admin Dose 3 ML; Start 04/30/18 at 20:00 Ceftriaxone Sodium 50 ml @ 100 mls/hr Q24H IVPB Last administered on 05/13/18 17:52; Admin Dose 100 MLS/HR; Start 05/02/18 at 17:30 Linezolid (Zyvox) 600 mg BID PO Last administered on 05/14/18at 09:15; Admin Dose 600 MG; Start 05/02/18 at 21:00 Docusate Sodium (Colace) 100 mg BID PO Last administered on 05/13/18at 20:07; Admin Dose 100 MG; Start 05/02/18 at 21:00 Polyethylene Glycol (Miralax) 17 gm DAILY PO Last administered on 05/10/18at 09:00; Admin Dose 17 GM; Start 05/02/18 at 20:30 Diagnostic Test (Pha) (Accu-Chek) 1 ea AC MEALS AND BEDTIME XX Last adm inistered on 05/14/18at 11:30; Admin Dose 1 EA; Start 05/03/18 at 17:35 Miscellaneous Information 1 ea NOTE XX ; Start 05/03/18 at 14:30 Glucose (Glutose) 15 gm Q15M PRN PO DECREASED GLUCOSE; Start 05/03/18 at 14:30 Glucose (Glutose) 22.5 gm Q15M PRN PO DECREASED GLUCOSE; Start 05/03/18 at 14:30 Dextrose (D50w Syringe) 25 ml Q15M PRN IV DECREASED GLUCOSE; Start 05/03/18 at 14:30 Dextrose (D50w Syringe) 50 ml Q15M PRN IV DECREASED GLUCOSE; Start 05/03/18 at 14:30 Glucagon (Glucagen) 1 mg Q15M PRN IM DECREASED GLUCOSE; Start 05/03/18 at 14:30 Glucose (Glutose) 15 gm Q15M PRN BUCCAL DECREASED GLUCOSE; Start 05/03/18 at 14:30 Metronidazole (Flagyl) 500 mg Q6 PO Last administered on 05/14/18at 13:03; Admin Dose 500 MG; Start 05/06/18 at 18:00 IV Flush (NS 10 ml) 10 ml PRN PRN IV IV PROTOCOL; Start 05/08/18 at 15:30 Insulin Aspart (Novolog Insulin Pen) NOVOLOG *MILD* ALGORITHM WITH MEALS BEDTIME SC Last administered on 05/13/18at 17:31; Admin Dose 2 UNIT; Start 05/09/18 at 08:00 Diagnostic Test (Pha) (Accu-Chek) 1 ea 02 XX Last administered on 05/10/18at 02:35; Admin Dose 1 EA; Start 05/09/18 at 02:00 Pantoprazole (Protonix Tab) 40 mg DAILY PO Last administered on 05/14/18 09:09 ; Admin Dose 40 MG; Start 05/09/18 at 06:00 Metformin HCl (Glucophage) 1,000 mg BID WITH MEALS PO Last administered on 05/14/18 09:09; Admin Dose 1,000 MG; Start 05/10/18 at 08:00 Linagliptin (Tradjenta) 5 mg DAILY PO Last administered on 05/14/18 09:09; Admin Dose 5 MG; Start 05/09/18 at 19:30 Insulin Aspart (Novolog Insulin Pen) 13 unit WITH MEALS SC Last administered on 05/14/18 12:41; Admin Dose 13 UNIT; Start 05/10/18 at 11:30 Lactobacillus Acidophilus/ Rhamnosus (Culturelle) 1 cap WITH MEALS PO Last administered on 05/14/18 13:02; Admin Dose 1 CAP; Start 05/11/18 at 11:30 Insulin Glargine (Lantus) 35 units DAILY@2000 SC Last administered on 05/13/18 20:11; Admin Dose 35 UNITS; Start 05/11/18 at 20:00 Trazodone HCl (Desyrel) 100 mg HS PO Last administered on 05/13/18 20:08; Admin Dose 100 MG; Start 05/13/18 at 21:00 KITTY DUMONT NP May 14, 2018 13:56
[2018-05-14 14:47] VITALS: BP 92/53; PULSE 91; RESP 18
[2018-05-14] MEDS: CEFTRIAXONE 1 GM/50 ML (PMX) 50 ML IVPB SCH (17:27)
[2018-05-14 20:00] VITALS: BP 97/52; PULSE 85; RESP 19
[2018-05-14] MEDS: traZODone 50 MG TAB PO SCH (20:37)
[2018-05-14] MEDS: INSULIN GLARGINE [LANTus] (100 UNITS/ML) SYG SC SCH (20:38)
[2018-05-15] MEDS: metroNIDAZOLE 500 MG TAB PO SCH ×3 (00:42→12:25)
[2018-05-15] MEDS: ACCU-CHEK XX SCH ×5 (01:25→21:00)
[2018-05-15 02:00] VITALS: BP 121/59; PULSE 80; RESP 19
[2018-05-15] MEDS: ONDANSETRON 4 MG INJ IV PRN ×3 (07:55→20:58)
[2018-05-15] MEDS: LACTOBACILLUS RHAMNOSUS CAP PO SCH ×3 (07:59→17:23)
[2018-05-15] MEDS: INSULIN ASPART [NOVOLOG] 3 ML PEN SC SCH ×7 (08:00→21:00)
[2018-05-15] MEDS: HEPARIN 5,000 UNIT/1 ML VIAL SC SCH ×2 (08:01→21:05)
[2018-05-15] MEDS: POLYETHYLENE GLYCOL 17 GM PACKET PO SCH ×2 (08:01→08:09)
[2018-05-15] MEDS: LINAGLIPTIN 5 MG TABLET PO SCH (08:01)
[2018-05-15] MEDS: ZYVOX 600 MG TAB PO SCH (08:01)
[2018-05-15] MEDS: metFORMIN 500 MG TAB PO SCH ×2 (08:02→17:23)
[2018-05-15] MEDS: PANTOPRAZOLE (EC) 40 MG TAB PO SCH (08:02)
[2018-05-15] MEDS: DOCUSATE SODIUM 100 MG CAP PO SCH ×3 (08:02→21:02)
[2018-05-15] MEDS: SODIUM HYPOCHLORITE (1/40) 1 APPLIC BTL IRR SCH (08:03)
--- NOTE | 2018-05-15 08:53 | PN ---
Date/Time of Note Date/Time of Note DATE: 05/15/18 TIME: 08:53 Assessment/Plan VTE Prophylaxis Risk score (from Nsg)>0 risk: 9 SCD applied (from Nsg): Yes Pharmacological prophylaxis: LMWH Lines/Catheters IV Catheter Type (from Nrsg): PICC Line Central line still needed: Yes Urinary Cath still in place: No Assessment/Plan Assessment/Plan 1. Left foot wound with osteomyelitis- stable - Podiatry on board and appreciate recommendations. Continue all current care given request for limb salvage by patient - Status post multiple debridement and surgical correction - We will need antibiotics until 06/19/18 - ID on board for antibiotic management and appreciate consultation. Discussed changing antibiotics given intolerance to Flagyl. Will change to Invanz and D aptomycin 2. Diabetes mellitus - Continue Insulin, ISS and accuchecks - will need script for freestyle test strips prior to discharge 3. Dyslipidemia - Continue home meds 4. Disposition - Will adjust IV antibiotics and monitor for tolerance Result Diagram: 05/14/1861205/14/18612 Results 24hrs Laboratory Tests Test 05/14/18 12:11 05/14/18 14:23 05/14/18 17:26 05/14/18 20:36 Bedside Glucose 139 94 142 Erythrocyte 57 H Sedimentation Rate C-Reactive Protein 0.9 Test 05/15/18 07:56 Bedside Glucose 123 Subjective 24 Hr Interval Summary Free Text/Dictation Patient had episode of nausea with vomiting after given morning medications. Patient believes he's not able to tolerate Flagyl. Exam/Review of Systems Exam Vitals Vital Signs Date Temp Pulse Resp B/P (MAP) Pulse Ox O2 O2 Flow FiO2 Time Delivery Rate 05/15/18 97.7 80 19 121/59 98 02:00 (79) 05/14/18 Room Air 14:47 05/11/18 2.0 13:20 Intake and Output 05/14/18 05/14/18 05/15/18 1515:00 23:00 07:00 IntakeIntake Total 760 ml 50 ml 300 ml OutputOutput Total 600 ml 300 ml 400 ml BalanceBalance 160 ml -250 ml -100 ml Exam General: Patient is laying in bed and answers questions appropriately Neck: Supple, nontender, midline Respiratory: Clear to auscultation bilaterally. no wheezing Cardiovascular: regular rate and rhythm, no obvious murmurs Gastrointestinal: soft, non-tender to palpation, bowel sounds heard. 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: Moves all extremities spontaneously Skin: Left foot bandaged, CDI, casted Results Results 24hrs Laboratory Tests Test 05/14/18 12:11 05/14/18 14:23 05/14/18 17:26 05/14/18 20:36 Bedside Glucose 139 94 142 Erythrocyte 57 H Sedimentation Rate C-Reactive Protein 0.9 Test 05/15/18 07:56 Bedside Glucose 123 Medications Medication Current Medications IV Flush (NS 3 ml) 3 ml PER PROTOCOL IV ; Start 04/29/18 at 19:00 Acetaminophen/ Hydrocodone Bitart ([place] (5/325)) 2 tab Q6H PRN PO .SEVERE PAIN 7-10 Last administered on 05/01/18 11:42; Admin Dose 2 TAB; Start 04/29/18 at 19:00 Heparin Sodium (Porcine) (Heparin (5000 Units/1ml)) 5,000 unit Q12 SC Last administered on 05/15/18 08:01; Admin Dose 5,000 UNIT; Start 04/29/18 at 21:00 Ondansetron HCl (Zofran Inj) 4 mg Q4H PRN IV NAUSEA AND/OR VOMITING Last administered on 05/15/18 07:55; Admin Dose 4 MG; Start 04/30/18 at 05:00 Sodium Hypochlorite (Dakin'S (Dilute 140)) 1 applic DAILY IRR Last administered on 05/11/18 08:39; Admin Dose 1 APPLIC; Start 04/30/18 at 15:00 Albuterol/ Ipratropium (Duoneb) 3 ml Q4H RESP THERAPY PRN HHN SHORTNESS OF BREATH Last administered on 05/04/18 17:15; Admin Dose 3 ML; Start 04/30/18 at 20:00 Ceftriaxone Sodium 50 ml @ 100 mls/hr Q24H IVPB Last administered on 05/14/18 17:27; Admin Dose 100 MLS/HR; Start 05/02/18 at 17:30 Linezolid (Zyvox) 600 mg BID PO Last administered on 05/15/18 08:01; Admin Dose 600 MG; Start 05/02/18 at 21:00 Docusate Sodium (Colace) 100 mg BID PO Last administered on 3/20/19at 20:07; Admin Dose 100 MG; Start 05/02/18 at 21:00 Polyethylene Glycol (Miralax) 17 gm DAILY PO Last administered on 05/10/18at 09:00; Admin Dose 17 GM; Start 05/02/18 at 20:30 Diagnostic Test (Pha) (Accu-Chek) 1 ea AC MEALS AND BEDTIME XX Last administered on 05/14/18at 17:27; Admin Dose 1 EA; Start 05/03/18 at 17:35 Miscellaneous Information 1 ea NOTE XX ; Start 05/03/18 at 14:30 Glucose (Glutose) 15 gm Q15M PRN PO DECREASED GLUCOSE; Start 05/03/18 at 14:30 Glucose (Glutose) 22.5 gm Q15M PRN PO DECREASED GLUCOSE; Start 05/03/18 at 14:30 Dextrose (D50w Syringe) 25 ml Q15M PRN IV DECREASED GLUCOSE; Start 05/03/18 at 14:30 Dextrose (D50w Syringe) 50 ml Q15M PRN IV DECREASED GLUCOSE; Start 05/03/18 at 14:30 Glucagon (Glucagen) 1 mg Q15M PRN IM DECREASED GLUCOSE; Start 05/03/18 at 14:30 Glucose (Glutose) 15 gm Q15M PRN BUCCAL DECREASED GLUCOSE; Start 05/03/18 at 14:30 Metronidazole (Flagyl) 500 mg Q6 PO Last administered on 05/15/18at 06:01; Admin Dose 500 MG; Start 05/06/18 at 18:00 IV Flush (NS 10 ml) 10 ml PRN PRN IV IV PROTOCOL; Start 05/08/18 at 15:30 Insulin Aspart (Novolog Insulin Pen) NOVOLOG *MILD* ALGORITHM WITH MEALS BEDTIME SC Last administered on 05/13/18at 17:31; Admin Dose 2 UNIT; Start 05/09/18 at 08:00 Diagnostic Test (Pha) (Accu-Chek) 1 ea 02 XX Last administered on 05/10/18at 02:35; Admin Dose 1 EA; Start 05/09/18 at 02:00 Pantoprazole (Protonix Tab) 40 mg DAILY PO Last administered on 05/15/18at 08:02; Admin Dose 40 MG; Start 05/09/18 at 06:00 Metformin HCl (Glucophage) 1,000 mg BID WITH MEALS PO Last administered on 08:02; Admin Dose 1,000 MG; Start 05/10/18 at 08:00 Linagliptin (Tradjenta) 5 mg DAILY PO Last administered on 05/15/18 08:01; Admin Dose 5 MG; Start 05/09/18 at 19:30 Insulin Aspart (Novolog Insulin Pen) 13 unit WITH MEALS SC Last administered on 05/15/18 08:01; Admin Dose 13 UNIT; Start 05/10/18 at 11:30 Lactobacillus Acidophilus/ Rhamnosus (Culturelle) 1 cap WITH MEALS PO Last ad ministered on 05/15/18 07:59; Admin Dose 1 CAP; Start 05/11/18 at 11:30 Insulin Glargine (Lantus) 35 units DAILY@2000 SC Last administered on 05/14/18 20:38; Admin Dose 35 UNITS; Start 05/11/18 at 20:00 Trazodone HCl (Desyrel) 100 mg HS PO Last administered on 05/14/18 20:37; Admin Dose 100 MG; Start 05/13/18 at 21:00 KATIE RUTLEDGE MD May 15, 2018 08:53
[2018-05-15 09:05] VITALS: BP 90/60; PULSE 85; RESP 18
--- NOTE | 2018-05-15 11:06 | CONS ---
Assessment/Plan Assessment/Plan Hospital Course (Demo Recall) Looks comfortable, c/o nausea after Flagyl Wound culture grew VRE E. coli Corynebacterium species and Bacteroides fragilis Antimicrobials: Zyvox Rocephin,Flagyl PHYSICAL EXAMINATION: GENERAL: This is a well-developed, well-nourished, middle-aged man who is awake, in no distress. HEENT: Head is atraumatic, normocephalic. NECK: Supple. CHEST: Rise symmetrical. Breath sounds diminished to bases. HEART: S1, S2. ABDOMEN: Soft. Bowel tones are present. EXTREMITIES: With left extremity in a cast Assessment: 1. Left diabetic foot ulceration with ongoing osteomyelitis and cellulitis, s/p surgical intervention 05/08/18 2. Diabetes 3. Obesity 4. S/p ALESSANDRO Plan: Remains stable, pending discharge arrangements. Will change abx to Invanz and Daptomycin==> last dose June 19 Consultation Date/Type/Reason Admit Date/Time Apr 29, 2018 at 18:18 Initial Consult Date Type of Consult id Date/Time of Note DATE: 05/15/18 TIME: 11:05 Exam/Review of Systems Exam Vitals Vital Signs Date Temp Pulse Resp B/P (MAP) Pulse Ox O2 O2 Flow FiO2 Time Delivery Rate 05/15/18 97.8 85 18 90/60 (70) 99 Room Air 09:05 05/11/18 2.0 13:20 Intake and Output 05/14/18 05/14/18 05/15/18 1515:00 23:00 07:00 IntakeIntake Total 760 ml 50 ml 300 ml OutputOutput Total 600 ml 300 ml 400 ml BalanceBalance 160 ml -250 ml -100 ml Results Result Diagram: 05/14/18 0613 05/14/18 0613 Results 24hrs Laboratory Tests Test 05/14/18 12:11 05/14/18 14:23 05/14/18 17:26 05/14/18 20:36 Bedside Glucose 139 94 142 Erythrocyte 57 H Sedimentation Rate C-Reactive Protein 0.9 Test 05/15/18 07:56 Bedside Glucose 123 Medications Medication Current Medications IV Flush (NS 3 ml) 3 ml PER PROTOCOL IV ; Start 04/29/18 at 19:00 Acetaminophen/ Hydrocodone Bitart ([place] (5/325)) 2 tab Q6H PRN PO .SEVERE PAIN 7-10 Last administered on 05/01/18 11:42; Admin Dose 2 TAB; Start 04/29/18 at 19:00 Heparin Sodium (Porcine) (Heparin (5000 Units/1ml)) 5,000 unit Q12 SC Last administered on 05/15/18 08:01; Admin Dose 5,000 UNIT; Start 04/29/18 at 21:00 Ondansetron HCl (Zofran Inj) 4 mg Q4H PRN IV NAUSEA AND/OR VOMITING Last administered on 05/15/18 07:55; Admin Dose 4 MG; Start 04/30/18 at 05:00 Sodium Hypochlorite (Dakin'S (Dilute )) 1 applic DAILY IRR Last administered on 05/11/18 08:39; Admin Dose 1 APPLIC; Start 04/30/18 at 15:00 Albuterol/ Ipratropium (Duoneb) 3 ml Q4H RESP THERAPY PRN HHN SHORTNESS OF BREATH Last administered on 05/04/18 17:15; Admin Dose 3 ML; Start 04/30/18 at 20:00 Ceftriaxone Sodium 50 ml @ 100 mls/hr Q24H IVPB Last administered on 05/14/18 17:27; Admin Dose 100 MLS/HR; Start 05/02/18 at 17:30 Linezolid (Zyvox) 600 mg BID PO Last administered on 05/15/18 08:01; Admin Dose 600 MG; Start 05/02/18 at 21:00 Docusate Sodium (Colace) 100 mg BID PO Last administered on 05/13/18 20:07; Admin Dose 100 MG; Start 05/02/18 at 21:00 Polyethylene Glycol (Miralax) 17 gm DAILY PO Last administered on 05/10/18 09:00; Admin Dose 17 GM; Start 05/02/18 at 20:30 Diagnostic Test (Pha) (Accu-Chek) 1 ea AC MEALS AND BEDTIME XX Last administered on 05/14/18 17:27; Admin Dose 1 EA; Start 05/03/18 at 17:35 Miscellaneous Information 1 ea NOTE XX ; Start 05/03/18 at 14:30 Glucose (Glutose) 15 gm Q15M PRN PO DECREASED GLUCOSE; Start 05/03/18 at 14:30 Glucose (Glutose) 22.5 gm Q15M PRN PO DECREASED GLUCOSE; Start 05/03/18 at 14:30 Dextrose (D50w Syringe) 25 ml Q15M PRN IV DECREASED GLUCOSE; Start 05/03/18 at 14:30 Dextrose (D50w Syringe) 50 ml Q15M PRN IV DECREASED GLUCOSE; Start 05/03/18 at 14:30 Glucagon (Glucagen) 1 mg Q15M PRN IM DECREASED GLUCOSE; Start 05/03/18 at 14:30 Glucose (Glutose) 15 gm Q15M PRN BUCCAL DECREASED GLUCOSE; Start 05/03/18 at 14:30 Metronidazole (Flagyl) 500 mg Q6 PO Last administered on 05/15/18 06:01; Admin Dose 500 MG; Start 05/06/18 at 18:00 IV Flush (NS 10 ml) 10 ml PRN PRN IV IV PROTOCOL; Start 05/08/18 at 15:30 Insulin Aspart (Novolog Insulin Pen) NOVOLOG *MILD* ALGORITHM WITH MEALS BEDTIME SC Last administered on 05/13/18at 17:31; Admin Dose 2 UNIT; Start 05/09/18 at 08:00 Diagnostic Test (Pha) (Accu-Chek) 1 ea 02 XX Last administered on 05/10/18at 02 :35; Admin Dose 1 EA; Start 05/09/18 at 02:00 Pantoprazole (Protonix Tab) 40 mg DAILY PO Last administered on 05/15/18 08:02; Admin Dose 40 MG; Start 05/09/18 at 06:00 Metformin HCl (Glucophage) 1,000 mg BID WITH MEALS PO Last administered on 05/15/18at 08:02; Admin Dose 1,000 MG; Start 05/10/18 at 08:00 Linagliptin (Tradjenta) 5 mg DAILY PO Last administered on 05/15/18 08:01; Admin Dose 5 MG; Start 05/09/18 at 19:30 Insulin Aspart (Novolog Insulin Pen) 13 unit WITH MEALS SC Last administered on 05/15/18 08:01; Admin Dose 13 UNIT; Start 05/10/18 at 11:30 Lactobacillus Acidophilus/ Rhamnosus (Culturelle) 1 cap WITH MEALS PO Last administered on 05/15/18at 07:59; Admin Dose 1 CAP; Start 05/11/18 at 11:30 Insulin Glargine (Lantus) 35 units DAILY@2000 SC Last administered on 05/14/18at 20:38; Admin Dose 35 UNITS; Start 05/11/18 at 20:00 Trazodone HCl (Desyrel) 100 mg HS PO Last administered on 05/14/18at 20:37; Admin Dose 100 MG; Start 05/13/18 at 21:00 KITTY DUMONT NP May 15, 2018 11:06
[2018-05-15] MEDS ORDERED: ACETAMINOPHEN 325 MG TAB PO PRN (12:00)
[2018-05-15 14:13] VITALS: BP 87/48; PULSE 104; RESP 18
[2018-05-15] MEDS: ERTAPENEM SODIUM 1 GM in SOD CHLORIDE 0.9% 100 ML IVPB SCH (16:17)
[2018-05-15] MEDS: DAPTOMYCIN 650 MG in SOD CHLORIDE 0.9% 100 ML IVPB SCH (17:23)
[2018-05-15 20:05] VITALS: BP 109/66; PULSE 101; RESP 18
[2018-05-15] MEDS: traZODone 50 MG TAB PO SCH (21:03)
[2018-05-15] MEDS: INSULIN GLARGINE [LANTus] (100 UNITS/ML) SYG SC SCH (21:04)
[2018-05-16] MEDS: ACCU-CHEK XX SCH ×5 (02:00→20:22)
[2018-05-16 02:05] VITALS: BP 117/75; PULSE 98; RESP 16
[2018-05-16] MEDS: ONDANSETRON 4 MG INJ IV PRN ×2 (06:51→19:42)
[2018-05-16 07:59] VITALS: BP 101/54; PULSE 87; RESP 17
[2018-05-16] MEDS: INSULIN ASPART [NOVOLOG] 3 ML PEN SC SCH ×7 (08:00→20:21)
[2018-05-16] MEDS: SODIUM HYPOCHLORITE (1/40) 1 APPLIC BTL IRR SCH (08:14)
[2018-05-16] MEDS: HEPARIN 5,000 UNIT/1 ML VIAL SC SCH ×2 (08:46→21:09)
[2018-05-16] MEDS: LACTOBACILLUS RHAMNOSUS CAP PO SCH ×3 (08:49→17:43)
[2018-05-16] MEDS: metFORMIN 500 MG TAB PO SCH ×2 (08:49→17:43)
[2018-05-16] MEDS: DOCUSATE SODIUM 100 MG CAP PO SCH ×2 (08:49→21:00)
[2018-05-16] MEDS: POLYETHYLENE GLYCOL 17 GM PACKET PO SCH (08:49)
[2018-05-16] MEDS: PANTOPRAZOLE (EC) 40 MG TAB PO SCH (08:49)
[2018-05-16] MEDS: LINAGLIPTIN 5 MG TABLET PO SCH (08:50)
--- NOTE | 2018-05-16 08:52 | PN ---
Date/Time of Note Date/Time of Note DATE: 05/16/18 TIME: 08:52 Assessment/Plan VTE Prophylaxis Risk score (from Nsg)>0 risk: 8 SCD applied (from Nsg): Yes Pharmacological prophylaxis: LMWH Lines/Catheters IV Catheter Type (from Nrsg): PICC Line Central line still needed: Yes Urinary Cath still in place: No Assessment/Plan Assessment/Plan 1. Left foot wound with osteomyelitis- stable - Podiatry on board and appreciate recommendations. Continue all current care given request for limb salvage by patient. Discussed with patient that the cast duration will be determined at his outpatient follow up appt in 1-2 weeks - Status post multiple debridement and surgical correction - We will need antibiotics until 06/19/18 - ID on board for antibiotic management and appreciate consultation. Continue on Invanz and Daptomycin 2. Diabetes mellitus - Continue Insulin, ISS and accuchecks - will need script for freestyle test strips prior to discharge 3. Dyslipidemia - Continue home meds 4. Disposition - Monitor for improvement in nausea with vomiting. If tolerating antibiotics and no more episodes of emesis, will d/c to SNF Result Diagram: 05/16/18 0559 05/16/18 0559 Results 24hrs Laboratory Tests Test 05/15/18 12:23 05/15/18 17:22 05/15/18 21:01 05/16/18 03:52 Bedside Glucose 113 116 114 99 Test 05/16/18 05:59 05/16/18 08:05 White Blood Count 6.8 Red Blood Count 3.02 L Hemoglobin 8.5 L Hematocrit 27.2 L Mean Corpuscular 90.1 Volume Mean Corpuscular 28.1 L Hemoglobin Mean Corpuscular 31.3 L Hemoglobin Concent Red Cell 14.8 H Distribution Width Platelet Count 369 Mean Platelet Volume 8.8 Immature 0.300 Granulocytes % Neutrophils % 60.0 Lymphocytes % 30.1 Monocytes % 7.0 Eosinophils % 1.9 Basophils % 0.7 Nucleated Red Blood 0.0 Cells % Immature 0.020 Granulocytes # Neutrophils # 4.1 Lymphocytes # 2.1 Monocytes # 0.5 Eosinophils # 0.1 Basophils # 0.1 Nucleated Red Blood 0.0 Cells # Sodium Level 139 Potassium Level 4.2 Chloride Level 108 Carbon Dioxide Level 19 L Anion Gap 12 Blood Urea Nitrogen 22 H Creatinine 1.05 Glucose Level 108 Calcium Level 8.9 Phosphorus Level 3.5 Magnesium Level 1.7 Albumin 3.0 L Bedside Glucose 97 Subjective 24 Hr Interval Summary Free Text/Dictation Patient states he will still experiencing episodes of vomiting yesterday with last episode at 11pm. No episodes yet today and discussed change in antibiotics due to intolerance. Patient admits to sleeping better since Flagyl was d/c Exam/Review of Systems Exam Vitals Vital Signs Date Temp Pulse Resp B/P (MAP) Pulse Ox O2 O2 Flow FiO2 Time Delivery Rate 05/16/18 98.8 87 17 101/54 97 Room Air 07:59 (70) Intake and Output 05/15/18 05/15/18 05/16/18 1515:00 23:00 07:00 IntakeIntake Total 840 ml 440 ml OutputOutput Total 100 ml 500 ml BalanceBalance 840 ml 340 ml -500 ml Exam General: Patient is laying in bed and answers questions appropriately Neck: Supple, nontender, midline Respiratory: Clear to auscultation bilaterally. no wheezing Cardiovascular: regular rate and rhythm, no obvious murmurs Gastrointestinal: soft, non-tender to palpation, bowel sounds heard. 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: Moves all extremities spontaneously Skin: Left foot bandaged, CDI, casted Results Results 24hrs Laboratory Tests Test 05/15/18 12:23 05/15/18 17:22 05/15/18 21:01 05/16/18 03:52 Bedside Glucose 113 116 114 99 Test 05/16/18 05:59 05/16/18 08:05 White Blood Count 6.8 Red Blood Count 3.02 L Hemoglobin 8.5 L Hematocrit 27.2 L Mean Corpuscular 90.1 Volume Mean Corpuscular 28.1 L Hemoglobin Mean Corpuscular 31.3 L Hemoglobin Concent Red Cell 14.8 H Distribution Width Platelet Count 369 Mean Platelet Volume 8.8 Immature 0.300 Granulocytes % Neutrophils % 60.0 Lymphocytes % 30.1 Monocytes % 7.0 Eosinophils % 1.9 Basophils % 0.7 Nucleated Red Blood 0.0 Cells % Immature 0.020 Granulocytes # Neutrophils # 4.1 Lymphocytes # 2.1 Monocytes # 0.5 Eosinophils # 0.1 Basophils # 0.1 Nucleated Red Blood 0.0 Cells # Sodium Level 139 Potassium Level 4.2 Chloride Level 108 Carbon Dioxide Level 19 L Anion Gap 12 Blood Urea Nitrogen 22 H Creatinine 1.05 Glucose Level 108 Calcium Level 8.9 Phosphorus Level 3.5 Magnesium Level 1.7 Albumin 3.0 L Bedside Glucose 97 Medications Medication Current Medications IV Flush (NS 3 ml) 3 ml PER PROTOCOL IV ; Start 04/29/18 at 19:00 Acetaminophen/ Hydrocodone Bitart ([place] (5/325)) 2 tab Q6H PRN PO .SEVERE PAIN 7-10 Last administered on 05/01/18 11:42; Admin Dose 2 TAB; Start 04/29/18 at 19:00 Heparin Sodium (Porcine) (Heparin (5000 Units/1ml)) 5,000 unit Q12 SC Last administered on 05/15/18 21:05; Admin Dose 5,000 UNIT; Start 04/29/18 at 21:00 Ondansetron HCl (Zofran Inj) 4 mg Q4H PRN IV NAUSEA AND/OR VOMITING Last administered on 05/16/18 06:51; Admin Dose 4 MG; Start 04/30/18 at 05:00 Sodium Hypochlorite (Dakin'S (Dilute )) 1 applic DAILY IRR Last administered on 05/11/18 08:39; Admin Dose 1 APPLIC; Start 04/30/18 at 15:00 Albuterol/ Ipratropium (Duoneb) 3 ml Q4H RESP THERAPY PRN HHN SHORTNESS OF BREATH Last administered on 05/04/18 17:15; Admin Dose 3 ML; Start 04/30/18 at 20:00 Docusate Sodium (Colace) 100 mg BID PO Last administered on 05/15/18 21:02; Admin Dose 100 MG; Start 05/02/18 at 21:00 Polyethylene Glycol (Miralax) 17 gm DAILY PO Last administered on 05/10/18 09:00; Admin Dose 17 GM; Start 05/02/18 at 20:30 Diagnostic Test (Pha) (Accu-Chek) 1 ea AC MEALS AND BEDTIME XX Last administered on 05/16/18 08:13; Admin Dose 1 EA; Start 05/03/18 at 17:35 Miscellaneous Information 1 ea NOTE XX ; Start 05/03/18 at 14:30 Glucose (Glutose) 15 gm Q15M PRN PO DECREASED GLUCOSE; Start 05/03/18 at 14:30 Glucose (Glutose) 22.5 gm Q15M PRN PO DECREASED GLUCOSE; Start 05/03/18 at 14:30 Dextrose (D50w Syringe) 25 ml Q15M PRN IV DECREASED GLUCOSE; Start 05/03/18 at 14:30 Dextrose (D50w Syringe) 50 ml Q15M PRN IV DECREASED GLUCOSE; Start 05/03/18 at 14:30 Glucagon (Glucagen) 1 mg Q15M PRN IM DECREASED GLUCOSE; Start 05/03/18 at 14:30 Glucose (Glutose) 15 gm Q15M PRN BUCCAL DECREASED GLUCOSE; Start 05/03/18 at 14:30 IV Flush (NS 10 ml) 10 ml PRN PRN IV IV PROTOCOL; Start 05/08/18 at 15:30 Insulin Aspart (Novolog Insulin Pen) NOVOLOG *MILD* ALGORITHM WITH MEALS BEDTIME SC Last administered on 05/13/18at 17:31; Admin Dose 2 UNIT; Start 05/09/18 at 08:00 Diagnostic Test (Pha) (Accu-Chek) 1 ea 02 XX Last administered on 05/10/18at 02:35; Admin Dose 1 EA; Start 05/09/18 at 02:00 Pantoprazole (Protonix Tab) 40 mg DAILY PO Last administered on 05/15/18 08:02; Admin Dose 40 MG; Start 05/09/18 at 06:00 Metformin HCl (Glucophage) 1,000 mg BID WITH MEALS PO Last administered on 05/15/18at 17:23; Admin Dose 1,000 MG; Start 05/10/18 at 08:00 Linagliptin (Tradjenta) 5 mg DAILY PO Last administered on 05/15/18at 08:01; Admin Dose 5 MG; Start 05/09/18 at 19:30 Insulin Aspart (Novolog Insulin Pen) 13 unit WITH MEALS SC Last administered on 05/15/18 17:24; Admin Dose 13 UNIT; Start 05/10/18 at 11:30 Lactobacillus Acidophilus/ Rhamnosus (Culturelle) 1 cap WITH MEALS PO Last administered on 05/15/18at 17:23; Admin Dose 1 CAP; Start 05/11/18 at 11:30 Insulin Glargine (Lantus) 35 units DAILY@2000 SC Last administered on 05/15/18at 21:04; Admin Dose 35 UNITS; Start 05/11/18 at 20:00 Trazodone HCl (Desyrel) 100 mg HS PO Last administered on 05/15/18 21:03; Admin Dose 100 MG; Start 05/13/18 at 21:00 Acetaminophen (Tylenol Tab) 650 mg Q4H PRN PO MILD PAIN(1-3)OR ELEVATED TEMP Last administered on 05/15/18at 12:34; Admin Dose 650 MG; Start 05/15/18 at 12:00 Ertapenem 1 gm/ Sodium Chloride 100 ml @ 200 mls/hr Q24H IVPB Last administered on 05/15/18at 16:17; Admin Dose 200 MLS/HR; Start 05/15/18 at 16:00 Daptomycin 650 mg/ Sodium Chloride 100 ml @ 200 mls/hr Q24H IVPB Last administered on 05/15/18at 17:23; Admin Dose 200 MLS/HR; Start 05/15/18 at 17:00 KATIE RUTLEDGE MD May 16, 2018 08:52
--- NOTE | 2018-05-16 13:13 | CONS ---
Consultation Date/Type/Reason Admit Date/Time Apr 29, 2018 at 18:18 Initial Consult Date SUBJECTIVE: Pt is awake, alert, afebrile. VS: stable T: 98.8 LABS: Reviewed. WBC- 6.8 Wound culture grew VRE E. coli Corynebacterium species and Bacteroides fragilis Antimicrobials: Invanz and Daptomycin PHYSICAL EXAMINATION: GENERAL: This is a well-developed, well-nourished, middle-aged man who is awake, in no distress. HEENT: Head is atraumatic, normocephalic. NECK: Supple. CHEST: Rise symmetrical. Breath sounds diminished to bases. HEART: S1, S2. ABDOMEN: Soft. Bowel tones are present. EXTREMITIES: With left foot dressing intact. Assessment: 1. 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 Diabetes 3. Obesity 4. Acute possibly on chronic kidney disease Plan: Patient is stable. Continue current antbx treatment. Last dose June 19. Continue local wound care per podiatry recommendations. Date/Time of Note DATE: 05/16/18 TIME: 13:10 Exam/Review of Systems Exam Vitals Vital Signs Date Temp Pulse Resp B/P (MAP) Pulse Ox O2 O2 Flow FiO2 Time Delivery Rate 05/16/18 98.8 87 17 101/54 97 Room Air 07:59 (70) Intake and Output 05/15/18 05/15/18 05/16/18 1515:00 23:00 07:00 IntakeIntake Total 840 ml 440 ml OutputOutput Total 100 ml 500 ml BalanceBalance 840 ml 340 ml -500 ml Results Result Diagram: 05/16/18 0559 05/16/18 0559 Results 24hrs Laboratory Tests Test 05/15/18 17:22 05/15/18 21:01 05/16/18 03:52 05/16/18 05:59 Bedside Glucose 116 114 99 White Blood Count 6.8 Red Blood Count 3.02 L Hemoglobin 8.5 L Hematocrit 27.2 L Mean Corpuscular 90.1 Volume Mean Corpuscular 28.1 L Hemoglobin Mean Corpuscular 31.3 L Hemoglobin Concent Red Cell 14.8 H Distribution Width Platelet Count 369 Mean Platelet Volume 8.8 Immature 0.300 Granulocytes % Neutrophils % 60.0 Lymphocytes % 30.1 Monocytes % 7.0 Eosinophils % 1.9 Basophils % 0.7 Nucleated Red Blood 0.0 Cells % Immature 0.020 Granulocytes # Neutrophils # 4.1 Lymphocytes # 2.1 Monocytes # 0.5 Eosinophils # 0.1 Basophils # 0.1 Nucleated Red Blood 0.0 Cells # Sodium Level 139 Potassium Level 4.2 Chloride Level 108 Carbon Dioxide Level 19 L Anion Gap 12 Blood Urea Nitrogen 22 H Creatinine 1.05 Glucose Level 108 Calcium Level 8.9 Phosphorus Level 3.5 Magnesium Level 1.7 Albumin 3.0 L Test 05/16/18 08:05 05/16/18 12:11 Bedside Glucose 97 75 Medications Medication Current Medications IV Flush (NS 3 ml) 3 ml PER PROTOCOL IV ; Start 04/29/18 at 19:00 Acetaminophen/ Hydrocodone Bitart ([place] (5/325)) 2 tab Q6H PRN PO .SEVERE PAIN 7-10 Last administered on 05/01/18 11:42; Admin Dose 2 TAB; Start 04/29/18 at 19:00 Heparin Sodium (Porcine) (Heparin (5000 Units/1ml)) 5,000 unit Q12 SC Last administered on 05/16/18 08:46; Admin Dose 5,000 UNIT; Start 04/29/18 at 21:00 Ondansetron HCl (Zofran Inj) 4 mg Q4H PRN IV NAUSEA AND/OR VOMITING Last ad ministered on 05/16/18 06:51; Admin Dose 4 MG; Start 04/30/18 at 05:00 Sodium Hypochlorite (Dakin'S (Dilute )) 1 applic DAILY IRR Last administered on 05/11/18 08:39; Admin Dose 1 APPLIC; Start 04/30/18 at 15:00 Albuterol/ Ipratropium (Duoneb) 3 ml Q4H RESP THERAPY PRN HHN SHORTNESS OF BREATH Last administered on 05/04/18 17:15; Admin Dose 3 ML; Start 04/30/18 at 20:00 Docusate Sodium (Colace) 100 mg BID PO Last administered on 05/15/18 21:02; Admin Dose 100 MG; Start 05/02/18 at 21:00 Polyethylene Glycol (Miralax) 17 gm DAILY PO Last administered on 05/10/18 09:00; Admin Dose 17 GM; Start 05/02/18 at 20:30 Diagnostic Test (Pha) (Accu-Chek) 1 ea AC MEALS AND BEDTIME XX Last adminis tered on 05/16/18at 12:13; Admin Dose 1 EA; Start 05/03/18 at 17:35 Miscellaneous Information 1 ea NOTE XX ; Start 05/03/18 at 14:30 Glucose (Glutose) 15 gm Q15M PRN PO DECREASED GLUCOSE; Start 05/03/18 at 14:30 Glucose (Glutose) 22.5 gm Q15M PRN PO DECREASED GLUCOSE; Start 05/03/18 at 14:30 Dextrose (D50w Syringe) 25 ml Q15M PRN IV DECREASED GLUCOSE; Start 05/03/18 at 14:30 Dextrose (D50w Syringe) 50 ml Q15M PRN IV DECREASED GLUCOSE; Start 05/03/18 at 14:30 Glucagon (Glucagen) 1 mg Q15M PRN IM DECREASED GLUCOSE; Start 05/03/18 at 14:30 Glucose (Glutose) 15 gm Q15M PRN BUCCAL DECREASED GLUCOSE; Start 05/03/18 at 14:30 IV Flush (NS 10 ml) 10 ml PRN PRN IV IV PROTOCOL; Start 05/08/18 at 15:30 Insulin Aspart (Novolog Insulin Pen) NOVOLOG *MILD* ALGORITHM WITH MEALS BEDTIME SC Last administered on 05/13/18at 17:31; Admin Dose 2 UNIT; Start 05/09/18 at 08:00 Diagnostic Test (Pha) (Accu-Chek) 1 ea 02 XX Last administered on 05/10/18at 02:35; Admin Dose 1 EA; Start 05/09/18 at 02:00 Pantoprazole (Protonix Tab) 40 mg DAILY PO Last administered on 05/16/18at 08:49; Admin Dose 40 MG; Start 05/09/18 at 06:00 Metformin HCl (Glucophage) 1,000 mg BID WITH MEALS PO Last administered on 08:49; Admin Dose 1,000 MG; Start 05/10/18 at 08:00 Linagliptin (Tradjenta) 5 mg DAILY PO Last administered on 05/16/18at 08:50; Admin Dose 5 MG; Start 05/09/18 at 19:30 Lactobacillus Acidophilus/ Rhamnosus (Culturelle) 1 cap WITH MEALS PO Last administered on 05/16/18at 12:21; Admin Dose 1 CAP; Start 05/11/18 at 11:30 Trazodone HCl (Desyrel) 100 mg HS PO Last administered on 05/15/18at 21:03; Admin Dose 100 MG; Start 05/13/18 at 21:00 Acetaminophen (Tylenol Tab) 650 mg Q4H PRN PO MILD PAIN(1-3)OR ELEVATED TEMP Last administered on 05/15/18at 12:34; Admin Dose 650 MG; Start 05/15/18 at 12:00 Ertapenem 1 gm/ Sodium Chloride 100 ml @ 200 mls/hr Q24H IVPB Last administered on 05/15/18at 16:17; Admin Dose 200 MLS/HR; Start 05/15/18 at 16:00 Daptomycin 650 mg/ Sodium Chloride 100 ml @ 200 mls/hr Q24H IVPB Last administered on 05/15/18at 17:23; Admin Dose 200 MLS/HR; Start 05/15/18 at 17:00 Insulin Aspart (Novolog Insulin Pen) 10 unit WITH MEALS SC ; Start 05/16/18 at 17:35 Insulin Glargine (Lantus) 32 units DAILY@2000 SC ; Start 05/16/18 at 20:00 SARAI JOHN May 16, 2018 13:13
[2018-05-16 14:20] VITALS: BP 102/59; PULSE 96; RESP 18
[2018-05-16] MEDS: ERTAPENEM SODIUM 1 GM in SOD CHLORIDE 0.9% 100 ML IVPB SCH (15:55)
[2018-05-16] MEDS: DAPTOMYCIN 650 MG in SOD CHLORIDE 0.9% 100 ML IVPB SCH (17:41)
[2018-05-16] MEDS ORDERED: INSULIN GLARGINE [LANTus] (100 UNITS/ML) SYG SC SCH (20:00)
[2018-05-16 20:43] VITALS: BP 116/64; PULSE 96; RESP 18
[2018-05-16] MEDS: traZODone 50 MG TAB PO SCH (21:08)
[2018-05-17] MEDS: ACCU-CHEK XX SCH ×5 (01:45→20:54)
[2018-05-17 02:56] VITALS: BP 101/55; PULSE 89; RESP 18
[2018-05-17] MEDS: INSULIN ASPART [NOVOLOG] 3 ML PEN SC SCH ×6 (07:35→20:52)
[2018-05-17] MEDS: metFORMIN 500 MG TAB PO SCH ×2 (08:08→17:14)
[2018-05-17] MEDS: PANTOPRAZOLE (EC) 40 MG TAB PO SCH (08:12)
[2018-05-17] MEDS: LACTOBACILLUS RHAMNOSUS CAP PO SCH ×3 (08:13→17:14)
[2018-05-17] MEDS: LINAGLIPTIN 5 MG TABLET PO SCH (08:13)
[2018-05-17] MEDS: HEPARIN 5,000 UNIT/1 ML VIAL SC SCH ×2 (08:16→21:25)
[2018-05-17] MEDS: SODIUM HYPOCHLORITE (1/40) 1 APPLIC BTL IRR SCH (08:20)
[2018-05-17] MEDS: DOCUSATE SODIUM 100 MG CAP PO SCH ×2 (08:21→21:00)
[2018-05-17] MEDS: POLYETHYLENE GLYCOL 17 GM PACKET PO SCH (08:21)
[2018-05-17 08:39] VITALS: BP 102/56; PULSE 88; RESP 17
--- NOTE | 2018-05-17 09:21 | PN ---
Date/Time of Note Date/Time of Note DATE: 05/17/18 TIME: 09:21 Assessment/Plan VTE Prophylaxis Risk score (from Nsg)>0 risk: 8 SCD applied (from Nsg): Yes Pharmacological prophylaxis: LMWH Lines/Catheters IV Catheter Type (from Nrsg): PICC Line Central line still needed: Yes Urinary Cath still in place: No Assessment/Plan Assessment/Plan 1. Left foot wound with osteomyelitis- stable - Podiatry on board and appreciate recommendations. Continue all current care given request for limb salvage by patient. Discussed with patient that the cast duration will be determined at his outpatient follow up appt in 1-2 weeks after discharge - Status post multiple debridement and surgical correction - We will need antibiotics until 06/19/18 - ID on board for antibiotic management and appreciate consultation. Continue on Invanz and Daptomycin 2. Diabetes mellitus - patient has been experiencing multiple episodes of symptomatic hypoglycemia. Lantus dosages adjusted and novolog held since patient keeps refusing. - will need script for freestyle test strips prior to discharge 3. Dyslipidemia - Continue home meds 4. Disposition - Adjustments made to Insulin regime given experiencing multiple episodes of symptomatic hypoglycemia results in nausea, vomiting, and poor PO intake. - Will need resolution of symptoms prior to discharge. Patient accepted to SNF and will be d/c once medically stable. Result Diagram: 05/16/18 0559 05/16/18 0559 Results 24hrs Laboratory Tests Test 05/16/18 12:11 05/16/18 16:59 05/16/18 20:13 05/16/18 20:33 Bedside Glucose 75 156 59 L 57 L Test 05/16/18 20:49 05/16/18 21:06 05/16/18 21:29 05/17/18 07:27 Bedside Glucose 75 89 96 Creatine Kinase 22 L Test 05/17/18 07:58 Bedside Glucose 111 Subjective 24 Hr Interval Summary Free Text/Dictation Patient still with nausea and vomiting which he attributes to multiple episodes of hypoglycemia. No acute overnight events Exam/Review of Systems Exam Vitals Vital Signs Date Temp Pulse Resp B/P (MAP) Pulse Ox O2 O2 Flow FiO2 Time Delivery Rate 05/17/18 98.5 88 17 102/56 98 Room Air 08:39 (71) Intake and Output 05/16/18 05/16/18 05/17/18 1515:00 23:00 07:00 IntakeIntake Total 1580 ml OutputOutput Total 300 ml 900 ml 500 ml BalanceBalance -300 ml 680 ml -500 ml Exam General: Patient is laying in bed and answers questions appropriately Neck: Supple, nontender, midline Respiratory: Clear to auscultation bilaterally. no wheezing Cardiovascular: regular rate and rhythm, no obvious murmurs Gastrointestinal: soft, non-tender to palpation, bowel sounds heard. 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: Moves all extremities spontaneously Skin: Left foot bandaged, CDI, casted Results Results 24hrs Laboratory Tests Test 05/16/18 12:11 05/16/18 16:59 05/16/18 20:13 05/16/18 20:33 Bedside Glucose 75 156 59 L 57 L Test 05/16/18 20:49 05/16/18 21:06 05/16/18 21:29 05/17/18 07:27 Bedside Glucose 75 89 96 Creatine Kinase 22 L Test 05/17/18 07:58 Bedside Glucose 111 Medications Medication Current Medications IV Flush (NS 3 ml) 3 ml PER PROTOCOL IV ; Start 04/29/18 at 19:00 Acetaminophen/ Hydrocodone Bitart ([place] (5/325)) 2 tab Q6H PRN PO .SEVERE PAIN 7-10 Last administered on 05/01/18 11:42; Admin Dose 2 TAB; Start 04/29/18 at 19:00 Heparin Sodium (Porcine) (Heparin (5000 Units/1ml)) 5,000 unit Q12 SC Last administered on 05/17/18 08:16; Admin Dose 5,000 UNIT; Start 04/29/18 at 21:00 Ondansetron HCl (Zofran Inj) 4 mg Q4H PRN IV NAUSEA AND/OR VOMITING Last administered on 05/16/18 19:42; Admin Dose 4 MG; Start 04/30/18 at 05:00 Sodium Hypochlorite (Dakin'S (Dilute )) 1 applic DAILY IRR Last administered on 05/11/18 08:39; Admin Dose 1 APPLIC; Start 04/30/18 at 15:00 Albuterol/ Ipratropium (Duoneb) 3 ml Q4H RESP THERAPY PRN HHN SHORTNESS OF BREATH Last administered on 05/04/18 17:15; Admin Dose 3 ML; Start 04/30/18 at 20:00 Docusate Sodium (Colace) 100 mg BID PO Last administered on 05/15/18at 21:02; Admin Dose 100 MG; Start 05/02/18 at 21:00 Polyethylene Glycol (Miralax) 17 gm DAILY PO Last administered on 05/10/18at 09:00; Admin Dose 17 GM; Start 05/02/18 at 20:30 Diagnostic Test (Pha) (Accu-Chek) 1 ea AC MEALS AND BEDTIME XX Last administered on 05/16/18at 17:15; Admin Dose 1 EA; Start 05/03/18 at 17:35 Miscellaneous Information 1 ea NOTE XX ; Start 05/03/18 at 14:30 Glucose (Glutose) 15 gm Q15M PRN PO DECREASED GLUCOSE; Start 05/03/18 at 14:30 Glucose (Glutose) 22.5 gm Q15M PRN PO DECREASED GLUCOSE; Start 05/03/18 at 14:30 Dextrose (D50w Syringe) 25 ml Q15M PRN IV DECREASED GLUCOSE; Start 05/03/18 at 14:30 Dextrose (D50w Syringe) 50 ml Q15M PRN IV DECREASED GLUCOSE; Start 05/03/18 at 14:30 Glucagon (Glucagen) 1 mg Q15M PRN IM DECREASED GLUCOSE; Start 05/03/18 at 14:30 Glucose (Glutose) 15 gm Q15M PRN BUCCAL DECREASED GLUCOSE; Start 05/03/18 at 14:30 IV Flush (NS 10 ml) 10 ml PRN PRN IV IV PROTOCOL; Start 05/08/18 at 15:30 Insulin Aspart (Novolog Insulin Pen) NOVOLOG *MILD* ALGORITHM WITH MEALS BEDTIME SC Last administered on 05/16/18at 17:46; Admin Dose 1 UNIT; Start 05/09/18 at 08:00 Diagnostic Test (Pha) (Accu-Chek) 1 ea 02 XX Last administered on 05/10/18at 02:35; Admin Dose 1 EA; Start 05/09/18 at 02:00 Pantoprazole (Protonix Tab) 40 mg DAILY PO Last administered on 05/17/18at 08:12; Admin Dose 40 MG; Start 05/09/18 at 06:00 Metformin HCl (Glucophage) 1,000 mg BID WITH MEALS PO Last administered on 05/17/18at 08:08; Admin Dose 1,000 MG; Start 05/10/18 at 08:00 Linagliptin (Tradjenta) 5 mg DAILY PO Last administered on 05/17/18 08:13; Admin Dose 5 MG; Start 05/09/18 at 19:30 Lactobacillus Acidophilus/ Rhamnosus (Culturelle) 1 cap WITH MEALS PO Last administered on 05/17/18 08:13; Admin Dose 1 CAP; Start 05/11/18 at 11:30 Trazodone HCl (Desyrel) 100 mg HS PO Last administered on 05/16/18 21:08; Admin Dose 100 MG; Start 05/13/18 at 21:00 Acetaminophen (Tylenol Tab) 650 mg Q4H PRN PO MILD PAIN(1-3)OR ELEVATED TEMP Last administered on 05/15/18 12:34; Admin Dose 650 MG; Start 05/15/18 at 12:00 Ertapenem 1 gm/ Sodium Chloride 100 ml @ 200 mls/hr Q24H IVPB Last administered on 05/16/18 15:55; Admin Dose 200 MLS/HR; Start 05/15/18 at 16:00 Daptomycin 650 mg/ Sodium Chloride 100 ml @ 200 mls/hr Q24H IVPB Last administered on 05/16/18 17:41; Admin Dose 200 MLS/HR; Start 05/15/18 at 17:00 Insulin Aspart (Novolog Insulin Pen) 10 unit WITH MEALS SC Last administered on 05/16/18 17:45; Admin Dose 10 UNIT; Start 05/16/18 at 17:35 Insulin Glargine (Lantus) 32 units DAILY@2000 SC ; Start 05/16/18 at 20:00 KATIE RUTLEDGE MD May 17, 2018 09:21
--- NOTE | 2018-05-17 12:38 | CONS ---
Consultation Date/Type/Reason Admit Date/Time Apr 29, 2018 at 18:18 Initial Consult Date SUBJECTIVE: Pt is awake, alert, afebrile.No acute events over night. VS: stable T: 98.5 LABS: Reviewed. Wound culture grew VRE E. coli Corynebacterium species and Bacteroides fragilis Antimicrobials: Invanz and Daptomycin PHYSICAL EXAMINATION: GENERAL: This is a well-developed, well-nourished, middle-aged man who is awake, in no distress. HEENT: Head is atraumatic, normocephalic. NECK: Supple. CHEST: Rise symmetrical. Breath sounds diminished to bases. HEART: S1, S2. ABDOMEN: Soft. Bowel tones are present. EXTREMITIES: With left foot dressing intact. Assessment: 1. 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 Diabetes 3. Obesity 4. Acute possibly on chronic kidney disease Plan: Patient is stable. Continue current antbx . Last dose June 19. Continue local wound care per podiatry recommendations. Date/Time of Note DATE: 05/17/18 TIME: 12:37 Exam/Review of Systems Exam Vitals Vital Signs Date Temp Pulse Resp B/P (MAP) Pulse Ox O2 O2 Flow FiO2 Time Delivery Rate 05/17/18 98.5 88 17 102/56 98 Room Air 08:39 (71) Intake and Output 05/16/18 05/16/18 05/17/18 1515:00 23:00 07:00 IntakeIntake Total 1580 ml OutputOutput Total 300 ml 900 ml 500 ml BalanceBalance -300 ml 680 ml -500 ml Results Result Diagram: 05/16/18 0559 05/16/18 0559 Results 24hrs Laboratory Tests Test 05/16/18 16:59 05/16/18 20:13 05/16/18 20:33 05/16/18 20:49 Bedside Glucose 156 59 L 57 L 75 Test 05/16/18 21:06 05/16/18 21:29 05/17/18 07:27 05/17/18 07:58 Bedside Glucose 89 96 111 Creatine Kinase 22 L Test 05/17/18 12:07 Bedside Glucose 155 Medications Medication Current Medications IV Flush (NS 3 ml) 3 ml PER PROTOCOL IV ; Start 04/29/18 at 19:00 Acetaminophen/ Hydrocodone Bitart ([place] (5/325)) 2 tab Q6H PRN PO .SEVERE PAIN 7-10 Last administered on 05/01/18 11:42; Admin Dose 2 TAB; Start 04/29/18 at 19:00 Heparin Sodium (Porcine) (Heparin (5000 Units/1ml)) 5,000 unit Q12 SC Last administered on 05/17/18 08:16; Admin Dose 5,000 UNIT; Start 04/29/18 at 21:00 Ondansetron HCl (Zofran Inj) 4 mg Q4H PRN IV NAUSEA AND/OR VOMITING Last administered on 05/16/18 19:42; Admin Dose 4 MG; Start 04/30/18 at 05:00 Sodium Hypochlorite (Dakin'S (Dilute )) 1 applic DAILY IRR Last administered on 05/11/18 08:39; Admin Dose 1 APPLIC; Start 04/30/18 at 15:00 Albuterol/ Ipratropium (Duoneb) 3 ml Q4H RESP THERAPY PRN HHN SHORTNESS OF BREATH Last administered on 05/04/18 17:15; Admin Dose 3 ML; Start 04/30/18 at 20:00 Docusate Sodium (Colace) 100 mg BID PO Last administered on 05/15/18 21:02; Admin Dose 100 MG; Start 05/02/18 at 21:00 Polyethylene Glycol (Miralax) 17 gm DAILY PO Last administered on 05/10/18 09:00; Admin Dose 17 GM; Start 05/02/18 at 20:30 Diagnostic Test (Pha) (Accu-Chek) 1 ea AC MEALS AND BEDTIME XX Last administered on 05/16/18at 17:15; Admin Dose 1 EA; Start 05/03/18 at 17:35 Miscellaneous Information 1 ea NOTE XX ; Start 05/03/18 at 14:30 Glucose (Glutose) 15 gm Q15M PRN PO DECREASED GLUCOSE; Start 05/03/18 at 14:30 Glucose (Glutose) 22.5 gm Q15M PRN PO DECREASED GLUCOSE; Start 05/03/18 at 14:30 Dextrose (D50w Syringe) 25 ml Q15M PRN IV DECREASED GLUCOSE; Start 05/03/18 at 14:30 Dextrose (D50w Syringe) 50 ml Q15M PRN IV DECREASED GLUCOSE; Start 05/03/18 at 14:30 Glucagon (Glucagen) 1 mg Q15M PRN IM DECREASED GLUCOSE; Start 05/03/18 at 14:30 Glucose (Glutose) 15 gm Q15M PRN BUCCAL DECREASED GLUCOSE; Start 05/03/18 at 14:30 IV Flush (NS 10 ml) 10 ml PRN PRN IV IV PROTOCOL; Start 05/08/18 at 15:30 Insulin Aspart (Novolog Insulin Pen) NOVOLOG *MILD* ALGORITHM WITH MEALS BEDTIME SC Last administered on 05/16/18 17:46; Admin Dose 1 UNIT; Start 05/09/18 at 08:00 Diagnostic Test (Pha) (Accu-Chek) 1 ea 02 XX Last administered on 05/10/18 02:35; Admin Dose 1 EA; Start 05/09/18 at 02:00 Pantoprazole (Protonix Tab) 40 mg DAILY PO Last administered on 05/17/18 08:12; Admin Dose 40 MG; Start 05/09/18 at 06:00 Metformin HCl (Glucophage) 1,000 mg BID WITH MEALS PO Last administered on 05/17/18 08:08; Admin Dose 1,000 MG; Start 05/10/18 at 08:00 Linagliptin (Tradjenta) 5 mg DAILY PO Last administered on 05/17/18 08:13; Admin Dose 5 MG; Start 05/09/18 at 19:30 Lactobacillus Acidophilus/ Rhamnosus (Culturelle) 1 cap WITH MEALS PO Last administered on 05/17/18 08:13; Admin Dose 1 CAP; Start 05/11/18 at 11:30 Trazodone HCl (Desyrel) 100 mg HS PO Last administered on 05/16/18 21:08; Adm in Dose 100 MG; Start 05/13/18 at 21:00 Acetaminophen (Tylenol Tab) 650 mg Q4H PRN PO MILD PAIN(1-3)OR ELEVATED TEMP Last administered on 05/15/18 12:34; Admin Dose 650 MG; Start 05/15/18 at 12:00 Ertapenem 1 gm/ Sodium Chloride 100 ml @ 200 mls/hr Q24H IVPB Last administered on 05/16/18 15:55; Admin Dose 200 MLS/HR; Start 05/15/18 at 16:00 Daptomycin 650 mg/ Sodium Chloride 100 ml @ 200 mls/hr Q24H IVPB Last administered on 05/16/18at 17:41; Admin Dose 200 MLS/HR; Start 05/15/18 at 17:00 Insulin Aspart (Novolog Insulin Pen) 10 unit WITH MEALS SC Last administered on 05/16/18at 17:45; Admin Dose 10 UNIT; Start 05/16/18 at 17:35; Status Hold Insulin Glargine (Lantus) 28 units DAILY@2000 SC ; Start 05/17/18 at 20:00 SARAI JOHN May 17, 2018 12:38
[2018-05-17 14:24] VITALS: BP 93/51; PULSE 98; RESP 17
[2018-05-17] MEDS: ERTAPENEM SODIUM 1 GM in SOD CHLORIDE 0.9% 100 ML IVPB SCH (16:37)
[2018-05-17] MEDS: DAPTOMYCIN 650 MG in SOD CHLORIDE 0.9% 100 ML IVPB SCH (17:11)
[2018-05-17] MEDS: ONDANSETRON 4 MG INJ IV PRN (17:44)
[2018-05-17 20:00] VITALS: BP 112/70; PULSE 98; RESP 18
[2018-05-17] MEDS ORDERED: INSULIN GLARGINE [LANTus] (100 UNITS/ML) SYG SC SCH ×2 (20:00)
[2018-05-17] MEDS: traZODone 50 MG TAB PO SCH (21:23)
[2018-05-18] MEDS: ACCU-CHEK XX SCH ×5 (00:51→20:53)
[2018-05-18 02:00] VITALS: BP 115/71; PULSE 93; RESP 18
[2018-05-18 08:00] VITALS: BP 103/56; PULSE 77; RESP 18
[2018-05-18] MEDS: INSULIN ASPART [NOVOLOG] 3 ML PEN SC SCH ×4 (08:00→20:53)
[2018-05-18] MEDS: SODIUM HYPOCHLORITE (1/40) 1 APPLIC BTL IRR SCH (08:28)
[2018-05-18] MEDS: metFORMIN 500 MG TAB PO SCH ×2 (08:33→17:43)
[2018-05-18] MEDS: LINAGLIPTIN 5 MG TABLET PO SCH (08:33)
[2018-05-18] MEDS: LACTOBACILLUS RHAMNOSUS CAP PO SCH ×3 (08:33→17:43)
[2018-05-18] MEDS: POLYETHYLENE GLYCOL 17 GM PACKET PO SCH (08:34)
[2018-05-18] MEDS: PANTOPRAZOLE (EC) 40 MG TAB PO SCH (08:34)
[2018-05-18] MEDS: DOCUSATE SODIUM 100 MG CAP PO SCH ×2 (08:34→20:53)
[2018-05-18] MEDS: HEPARIN 5,000 UNIT/1 ML VIAL SC SCH ×2 (08:35→20:52)
--- NOTE | 2018-05-18 11:22 | PN ---
Date/Time of Note Date/Time of Note DATE: 05/18/18 TIME: Objective Vitals Vital Signs Date Temp Pulse Resp B/P (MAP) Pulse Ox O2 O2 Flow FiO2 Time Delivery Rate 05/18/18 97.6 77 18 103/56 95 Room Air 08:00 (72) Intake and Output 05/17/18 05/17/18 05/18/18 1515:00 23:00 07:00 IntakeIntake Total 300 ml OutputOutput Total 1000 ml 1100 ml 350 ml BalanceBalance -1000 ml -800 ml -350 ml Results Result Diagram: 05/18/1838 05/18/1838 Medications Medications Current Medications IV Flush (NS 3 ml) 3 ml PER PROTOCOL IV ; Start 04/29/18 at 19:00 Acetaminophen/ Hydrocodone Bitart ([place] (5/325)) 2 tab Q6H PRN PO .SEVERE PAIN 7-10 Last administered on 05/01/18 11:42; Admin Dose 2 TAB; Start 04/29/18 at 19:00 Heparin Sodium (Porcine) (Heparin (5000 Units/1ml)) 5,000 unit Q12 SC Last administered on 05/18/18 08:35; Admin Dose 5,000 UNIT; Start 04/29/18 at 21:00 Ondansetron HCl (Zofran Inj) 4 mg Q4H PRN IV NAUSEA AND/OR VOMITING Last administered on 05/17/18 17:44; Admin Dose 4 MG; Start 04/30/18 at 05:00 Sodium Hypochlorite (Dakin'S (Dilute )) 1 applic DAILY IRR Last administered on 05/11/18 08:39; Admin Dose 1 APPLIC; Start 04/30/18 at 15:00 Albuterol/ Ipratropium (Duoneb) 3 ml Q4H RESP THERAPY PRN HHN SHORTNESS OF BREATH Last administered on 05/04/18 17:15; Admin Dose 3 ML; Start 04/30/18 at 20:00 Docusate Sodium (Colace) 100 mg BID PO Last administered on 05/15/18 21:02; Admin Dose 100 MG; Start 05/02/18 at 21:00 Polyethylene Glycol (Miralax) 17 gm DAILY PO Last administered on 05/10/18 09:00; Admin Dose 17 GM; Start 05/02/18 at 20:30 Diagnostic Test (Pha) (Accu-Chek) 1 ea AC MEALS AND BEDTIME XX Last administered on 05/18/18at 07:30; Admin Dose 1 EA; Start 05/03/18 at 17:35 Miscellaneous Information 1 ea NOTE XX ; Start 05/03/18 at 14:30 Glucose (Glutose) 15 gm Q15M PRN PO DECREASED GLUCOSE; Start 05/03/18 at 14:30 Glucose (Glutose) 22.5 gm Q15M PRN PO DECREASED GLUCOSE; Start 05/03/18 at 14:30 Dextrose (D50w Syringe) 25 ml Q15M PRN IV DECREASED GLUCOSE; Start 05/03/18 at 14:30 Dextrose (D50w Syringe) 50 ml Q15M PRN IV DECREASED GLUCOSE; Start 05/03/18 at 14:30 Glucagon (Glucagen) 1 mg Q15M PRN IM DECREASED GLUCOSE; Start 05/03/18 at 14:30 Glucose (Glutose) 15 gm Q15M PRN BUCCAL DECREASED GLUCOSE; Start 05/03/18 at 14:30 IV Flush (NS 10 ml) 10 ml PRN PRN IV IV PROTOCOL; Start 05/08/18 at 15:30 Insulin Aspart (Novolog Insulin Pen) NOVOLOG *MILD* ALGORITHM WITH MEALS BEDTIME SC Last administered on 05/17/18at 17:46; Admin Dose 1 UNIT; Start 05/09 at 08:00 Diagnostic Test (Pha) (Accu-Chek) 1 ea 02 XX Last administered on 05/10/18at 02:35; Admin Dose 1 EA; Start 05/09/18 at 02:00 Pantoprazole (Protonix Tab) 40 mg DAILY PO Last administered on 05/18/18at 08:34; Admin Dose 40 MG; Start 05/09/18 at 06:00 Metformin HCl (Glucophage) 1,000 mg BID WITH MEALS PO Last administered on 05/18/18at 08:33; Admin Dose 1,000 MG; Start 05/10/18 at 08:00 Linagliptin (Tradjenta) 5 mg DAILY PO Last administered on 05/18/18at 08:33; Admin Dose 5 MG; Start 05/09/18 at 19:30 Lactobacillus Acidophilus/ Rhamnosus (Culturelle) 1 cap WITH MEALS PO Last administered on 05/18/18 08:33; Admin Dose 1 CAP; Start 05/11/18 at 11:30 Trazodone HCl (Desyrel) 100 mg HS PO Last administered on 05/17/18 21:23; Admin Dose 100 MG; Start 05/13/18 at 21:00 Acetaminophen (Tylenol Tab) 650 mg Q4H PRN PO MILD PAIN(1-3)OR ELEVATED TEMP Last administered on 05/15/18 12:34; Admin Dose 650 MG; Start 05/15/18 at 12:00 Ertapenem 1 gm/ Sodium Chloride 100 ml @ 200 mls/hr Q24H IVPB Last administered on 05/17/18 16:37; Admin Dose 200 MLS/HR; Start 05/15/18 at 16:00 Daptomycin 650 mg/ Sodium Chloride 100 ml @ 200 mls/hr Q24H IVPB Last administered on 05/17/18 17:11; Admin Dose 200 MLS/HR; Start 05/15/18 at 17:00 Insulin Aspart (Novolog Insulin Pen) 10 unit WITH MEALS SC Last administered on 05/16/18 17:45; Admin Dose 10 UNIT; Start 05/16/18 at 17:35; Status Hold Insulin Glargine (Lantus) 28 units DAILY@2000 SC ; Start 05/17/18 at 20:00 VTE Prophylaxis Risk score (from Nsg)>0 risk: 8 SCD applied (from Ns): No SCD contraindication: other Lines/Catheters IV Catheter Type: [place] in Place: No Assessment/Plan Hospital Course Subjective No acute changes, Objective Physical exam General: Patient is laying in bed and answers questions appropriately Mentation: Patient is alert and oriented 4, Head: Normocephalic atraumatic Eyes: EOMI, pupils reactive to light Neck: Supple, nontender, midline Respiratory: Clear to auscultation bilaterally Cardiovascular: regular rate, no obvious murmurs Gastrointestinal: non-tender to palpation, bowel sounds heard. 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: Moves all extremities spontaneously Skin: Left foot bandaged, CDI, casted 1. Left foot wound with osteomyelitis- stable - Podiatry on board and appreciate recommendations. Continue all current care given request for limb salvage by patient. Discussed with patient that the cast duration will be determined at his outpatient follow up appt in 1-2 weeks after discharge - Status post multiple debridement and surgical correction - We will need antibiotics until 06/19/18 - ID on board for antibiotic management and appreciate consultation. Continue on Invanz and Daptomycin 2. Diabetes mellitus - patient has been experiencing multiple episodes of symptomatic hypoglycemia. -Patient has very interesting course regarding his diabetes where it was well controlled and after surgery it was very not controlled and insulin and NovoLog had to be adjusted, now it seems to be back trending, will restart a very low dose of Lantus and continue some p.o. medications Nausea, vomiting -Patient's nausea and vomiting has significantly improved, no nausea and vomiting in over 12 hours no abdominal pain, patient may be having side effects of the metformin, instead of just continuing metformin altogether, patient wants to attempt to just lower the medication as metformin is a good oral medication. The patient still not tolerating will DC metformin altogether. 3. Dyslipidemia - Continue home meds 4. Disposition - Adjustments made to Insulin regime given experiencing multiple episodes of symptomatic hypoglycemia results in nausea, vomiting, and poor PO intake. - Will need resolution of symptoms prior to discharge. Patient accepted to SNF and will be d/c once medically stable. - JANELL YOO May 18, 2018 11:22
--- NOTE | 2018-05-18 13:40 | CONS ---
Assessment/Plan Assessment/Plan Hospital Course (Demo Recall) Looks comfortable, no fevers Wound culture grew VRE E. coli Corynebacterium species and Bacteroides fragilis Antimicrobials: Invanz, Dapto PHYSICAL EXAMINATION: GENERAL: This is a well-developed, well-nourished, middle-aged man who is awake, in no distress. HEENT: Head is atraumatic, normocephalic. NECK: Supple. CHEST: Rise symmetrical. Breath sounds diminished to bases. HEART: S1, S2. ABDOMEN: Soft. Bowel tones are present. EXTREMITIES: With left extremity in a cast Assessment: 1. Left diabetic foot ulceration with ongoing osteomyelitis and cellulitis, s/p surgical intervention 05/08/18 2. Diabetes 3. Obesity 4. S/p ALESSANDRO 5. S/p adverse reaction to Flagyl==> vomiting Plan: Stable, pending discharge arrangements, last dose abx June 19 Consultation Date/Type/Reason Admit Date/Time Apr 29, 2018 at 18:18 Initial Consult Date Type of Consult id Date/Time of Note DATE: 05/18/18 TIME: 13:39 Exam/Review of Systems Exam Vitals Vital Signs Date Temp Pulse Resp B/P (MAP) Pulse Ox O2 O2 Flow FiO2 Time Delivery Rate 05/18/18 97.6 77 18 103/56 95 Room Air 08:00 (72) Intake and Output 05/17/18 05/17/18 05/18/18 1515:00 23:00 07:00 IntakeIntake Total 300 ml OutputOutput Total 1000 ml 1100 ml 350 ml BalanceBalance -1000 ml -800 ml -350 ml Results Result Diagram: 05/18/18 0538 05/18/18 0538 Results 24hrs Laboratory Tests Test 05/17/18 17:39 05/17/18 20:49 05/18/18 05:38 05/18/18 08:30 Bedside Glucose 144 149 103 White Blood Count 5.7 Red Blood Count 3.05 L Hemoglobin 8.8 L Hematocrit 27.6 L Mean Corpuscular 90.5 Volume Mean Corpuscular 28.9 L Hemoglobin Mean Corpuscular 31.9 L Hemoglobin Concent Red Cell 15.3 H Distribution Width Platelet Count 370 Mean Platelet Volume 8.8 Immature 0.300 Granulocytes % Neutrophils % 52.1 Lymphocytes % 35.5 Monocytes % 8.4 Eosinophils % 3.0 Basophils % 0.7 Nucleated Red Blood 0.0 Cells % Immature 0.020 Granulocytes # Neutrophils # 3.0 Lymphocytes # 2.0 Monocytes # 0.5 Eosinophils # 0.2 Basophils # 0.0 Nucleated Red Blood 0.0 Cells # Sodium Level 138 Potassium Level 4.1 Chloride Level 110 Carbon Dioxide Level 21 Anion Gap 7 Blood Urea Nitrogen 20 Creatinine 0.95 Glucose Level 93 Calcium Level 9.1 Phosphorus Level 3.3 Magnesium Level 1.7 Albumin 3.1 L Test 05/18/18 12:31 Bedside Glucose 175 Medications Medication Current Medications IV Flush (NS 3 ml) 3 ml PER PROTOCOL IV ; Start 04/29/18 at 19:00 Acetaminophen/ Hydrocodone Bitart ([place] (5/325)) 2 tab Q6H PRN PO .SEVERE PAIN 7-10 Last administered on 05/01/18 11:42; Admin Dose 2 TAB; Start 04/29/18 at 19:00 Heparin Sodium (Porcine) (Heparin (5000 Units/1ml)) 5,000 unit Q12 SC Last administered on 05/18/18 08:35; Admin Dose 5,000 UNIT; Start 04/29/18 at 21:00 Ondansetron HCl (Zofran Inj) 4 mg Q4H PRN IV NAUSEA AND/OR VOMITING Last administered on 05/17/18 17:44; Admin Dose 4 MG; Start 04/30/18 at 05:00 Sodium Hypochlorite (Dakin'S (Dilute )) 1 applic DAILY IRR Last administered on 05/11/18 08:39; Admin Dose 1 APPLIC; Start 04/30/18 at 15:00 Albuterol/ Ipratropium (Duoneb) 3 ml Q4H RESP THERAPY PRN HHN SHORTNESS OF BREATH Last administered on 05/04/18 17:15; Admin Dose 3 ML; Start 04/30/18 at 20:00 Docusate Sodium (Colace) 100 mg BID PO Last administered on 05/15/18 21:02; Admin Dose 100 MG; Start 05/02/18 at 21:00 Polyethylene Glycol (Miralax) 17 gm DAILY PO Last administered on 05/10/18 09:00; Admin Dose 17 GM; Start 05/02/18 at 20:30 Diagnostic Test (Pha) (Accu-Chek) 1 ea AC MEALS AND BEDTIME XX Last administered on 05/18/18at 12:33; Admin Dose 1 EA; Start 05/03/18 at 17:35 Miscellaneous Information 1 ea NOTE XX ; Start 05/03/18 at 14:30 Glucose (Glutose) 15 gm Q15M PRN PO DECREASED GLUCOSE; Start 05/03/18 at 14:30 Glucose (Glutose) 22.5 gm Q15M PRN PO DECREASED GLUCOSE; Start 05/03/18 at 14:30 Dextrose (D50w Syringe) 25 ml Q15M PRN IV DECREASED GLUCOSE; Start 05/03/18 at 14:30 Dextrose (D50w Syringe) 50 ml Q15M PRN IV DECREASED GLUCOSE; Start 05/03/18 at 14:30 Glucagon (Glucagen) 1 mg Q15M PRN IM DECREASED GLUCOSE; Start 05/03/18 at 14:30 Glucose (Glutose) 15 gm Q15M PRN BUCCAL DECREASED GLUCOSE; Start 05/03/18 at 14:30 IV Flush (NS 10 ml) 10 ml PRN PRN IV IV PROTOCOL; Start 05/08/18 at 15:30 Insulin Aspart (Novolog Insulin Pen) NOVOLOG *MILD* ALGORITHM WITH MEALS BEDTIME SC Last administered on 05/18/18 12:33; Admin Dose 1 UNIT; Start 05/09/18 at 08:00 Diagnostic Test (Pha) (Accu-Chek) 1 ea 02 XX Last administered on 05/10/18at 02:35; Admin Dose 1 EA; Start 05/09/18 at 02:00 Pantoprazole (Protonix Tab) 40 mg DAILY PO Last administered on 05/18/18at 08:34; Admin Dose 40 MG; Start 05/09/18 at 06:00 Linagliptin (Tradjenta) 5 mg DAILY PO Last administered on 05/18/18 08:33; Admin Dose 5 MG; Start 05/09/18 at 19:30 Lactobacillus Acidophilus/ Rhamnosus (Culturelle) 1 cap WITH MEALS PO Last administered on 05/18/18at 12:33; Admin Dose 1 CAP; Start 05/11/18 at 11:30 Trazodone HCl (Desyrel) 100 mg HS PO Last administered on 05/17/18at 21:23; Admin Dose 100 MG; Start 05/13/18 at 21:00 Acetaminophen (Tylenol Tab) 650 mg Q4H PRN PO MILD PAIN(1-3)OR ELEVATED TEMP Last administered on 05/15/18at 12:34; Admin Dose 650 MG; Start 05/15/18 at 12:00 Ertapenem 1 gm/ Sodium Chloride 100 ml @ 200 mls/hr Q24H IVPB Last administered on 05/17/18at 16:37; Admin Dose 200 MLS/HR; Start 05/15/18 at 16:00 Daptomycin 650 mg/ Sodium Chloride 100 ml @ 200 mls/hr Q24H IVPB Last administered on 05/17/18at 17:11; Admin Dose 200 MLS/HR; Start 05/15/18 at 17:00 Insulin Aspart (Novolog Insulin Pen) 10 unit WITH MEALS SC Last administered on 05/16/18at 17:45; Admin Dose 10 UNIT; Start 05/16/18 at 17:35; Status Hold Insulin Glargine (Lantus) 15 units DAILY@2000 SC ; Start 05/18/18 at 20:00 Metformin HCl (Glucophage) 500 mg BID WITH MEALS PO ; Start 05/18/18 at 18:05 KITTY DUMONT NP May 18, 2018 13:40
[2018-05-18 14:15] VITALS: BP 102/56; PULSE 85; RESP 18
[2018-05-18] MEDS: ERTAPENEM SODIUM 1 GM in SOD CHLORIDE 0.9% 100 ML IVPB SCH (15:11)
[2018-05-18] MEDS: DAPTOMYCIN 650 MG in SOD CHLORIDE 0.9% 100 ML IVPB SCH (16:01)
[2018-05-18 20:00] VITALS: BP 108/67; PULSE 94; RESP 18
[2018-05-18] MEDS ORDERED: INSULIN GLARGINE [LANTus] (100 UNITS/ML) SYG SC SCH (20:00)
[2018-05-18] MEDS: traZODone 50 MG TAB PO SCH (20:53)
[2018-05-19] MEDS: ACCU-CHEK XX SCH ×5 (02:00→21:00)
[2018-05-19 03:32] VITALS: BP 98/60; PULSE 87; RESP 17
[2018-05-19 08:00] VITALS: BP 102/71; PULSE 92; RESP 18
[2018-05-19] MEDS: LACTOBACILLUS RHAMNOSUS CAP PO SCH ×3 (08:28→17:28)
[2018-05-19] MEDS: INSULIN ASPART [NOVOLOG] 3 ML PEN SC SCH ×4 (08:28→20:39)
[2018-05-19] MEDS: metFORMIN 500 MG TAB PO SCH ×2 (08:28→17:28)
[2018-05-19] MEDS: PANTOPRAZOLE (EC) 40 MG TAB PO SCH (08:58)
[2018-05-19] MEDS: DOCUSATE SODIUM 100 MG CAP PO SCH ×3 (08:58→20:43)
[2018-05-19] MEDS: LINAGLIPTIN 5 MG TABLET PO SCH (08:58)
[2018-05-19] MEDS: HEPARIN 5,000 UNIT/1 ML VIAL SC SCH ×2 (08:59→20:38)
[2018-05-19] MEDS: POLYETHYLENE GLYCOL 17 GM PACKET PO SCH (09:00)
[2018-05-19] MEDS: SODIUM HYPOCHLORITE (1/40) 1 APPLIC BTL IRR SCH (09:00)
--- NOTE | 2018-05-19 13:31 | CONS ---
Assessment/Plan Assessment/Plan Hospital Course (Demo Recall) Looks comfortable, no fevers Wound culture grew VRE E. coli Corynebacterium species and Bacteroides fragilis Antimicrobials: Invanz, Dapto PHYSICAL EXAMINATION: GENERAL: This is a well-developed, well-nourished, middle-aged man who is awake, in no distress. HEENT: Head is atraumatic, normocephalic. NECK: Supple. CHEST: Rise symmetrical. Breath sounds diminished to bases. HEART: S1, S2. ABDOMEN: Soft. Bowel tones are present. EXTREMITIES: With left extremity in a cast Assessment: 1. Left diabetic foot ulceration with ongoing osteomyelitis and cellulitis, s/p surgical intervention 05/08/18 2. Diabetes 3. Obesity 4. S/p ALESSANDRO 5. S/p adverse reaction to Flagyl==> vomiting Plan: Stable, pending discharge arrangements, last dose abx June 19 Consultation Date/Type/Reason Admit Date/Time Apr 29, 2018 at 18:18 Initial Consult Date Type of Consult id Date/Time of Note DATE: 05/19/18 TIME: 13:31 Exam/Review of Systems Exam Vitals Vital Signs Date Temp Pulse Resp B/P (MAP) Pulse Ox O2 O2 Flow FiO2 Time Delivery Rate 05/19/18 97.8 92 18 102/71 98 Room Air 08:00 (81) Intake and Output 05/18/18 05/18/18 05/19/18 1515:00 23:00 07:00 IntakeIntake Total 240 ml 1100 ml 480 ml OutputOutput Total 200 ml 600 ml 380 ml BalanceBalance 40 ml 500 ml 100 ml Results Result Diagram: 05/19/18 0549 05/19/18 0549 Results 24hrs Laboratory Tests Test 05/18/18 17:41 05/18/18 20:46 05/19/18 05:49 05/19/18 08:25 Bedside Glucose 135 117 150 White Blood Count 7.3 # Red Blood Count 3.17 L Hemoglobin 9.0 L Hematocrit 28.3 L Mean Corpuscular 89.3 Volume Mean Corpuscular 28.4 L Hemoglobin Mean Corpuscular 31.8 L Hemoglobin Concent Red Cell 15.5 H Distribution Width Platelet Count 369 Mean Platelet Volume 9.1 Immature 0.400 Granulocytes % Neutrophils % 52.1 Lymphocytes % 35.3 Monocytes % 9.0 Eosinophils % 2.2 Basophils % 1.0 Nucleated Red Blood 0.0 Cells % Immature 0.030 Granulocytes # Neutrophils # 3.8 Lymphocytes # 2.6 Monocytes # 0.7 Eosinophils # 0.2 Basophils # 0.1 Nucleated Red Blood 0.0 Cells # Sodium Level 139 Potassium Level 4.1 Chloride Level 106 Carbon Dioxide Level 22 Anion Gap 11 Blood Urea Nitrogen 21 H Creatinine 0.96 Est Glomerular > 60 Filtrat Rate mL/min Glucose Level 143 # Calcium Level 9.2 Phosphorus Level 3.4 Magnesium Level 1.7 Test 05/19/18 11:45 Bedside Glucose 164 Medications Medication Current Medications IV Flush (NS 3 ml) 3 ml PER PROTOCOL IV ; Start 04/29/18 at 19:00 Acetaminophen/ Hydrocodone Bitart ([place] (5/325)) 2 tab Q6H PRN PO .SEVERE PAIN 7-10 Last administered on 05/01/18 11:42; Admin Dose 2 TAB; Start 04/29/18 at 19:00 Heparin Sodium (Porcine) (Heparin (5000 Units/1ml)) 5,000 unit Q12 SC Last administered on 05/19/18 08:59; Admin Dose 5,000 UNIT; Start 04/29/18 at 21:00 Ondansetron HCl (Zofran Inj) 4 mg Q4H PRN IV NAUSEA AND/OR VOMITING Last administered on 05/17/18 17:44; Admin Dose 4 MG; Start 04/30/18 at 05:00 Sodium Hypochlorite (Dakin'S (Dilute 40)) 1 applic DAILY IRR Last administered on 05/11/18 08:39; Admin Dose 1 APPLIC; Start 04/30/18 at 15:00 Albuterol/ Ipratropium (Duoneb) 3 ml Q4H RESP THERAPY PRN HHN SHORTNESS OF BREATH Last administered on 05/04/18 17:15; Admin Dose 3 ML; Start 04/30/18 at 20:00 Docusate Sodium (Colace) 100 mg BID PO Last administered on 05/15/18 21:02; Admin Dose 100 MG; Start 05/02/18 at 21:00 Polyethylene Glycol (Miralax) 17 gm DAILY PO Last administered on 05/10/18 09:00; Admin Dose 17 GM; Start 05/02/18 at 20:30 Diagnostic Test (Pha) (Accu-Chek) 1 ea AC MEALS AND BEDTIME XX Last administered on 05/18/18at 17:43; Admin Dose 1 EA; Start 05/03/18 at 17:35 Miscellaneous Information 1 ea NOTE XX ; Start 05/03/18 at 14:30 Glucose (Glutose) 15 gm Q15M PRN PO DECREASED GLUCOSE; Start 05/03/18 at 14:30 Glucose (Glutose) 22.5 gm Q15M PRN PO DECREASED GLUCOSE; Start 05/03/18 at 14:30 Dextrose (D50w Syringe) 25 ml Q15M PRN IV DECREASED GLUCOSE; Start 05/03/18 at 14:30 Dextrose (D50w Syringe) 50 ml Q15M PRN IV DECREASED GLUCOSE; Start 05/03/18 at 14:30 Glucagon (Glucagen) 1 mg Q15M PRN IM DECREASED GLUCOSE; Start 05/03/18 at 14:30 Glucose (Glutose) 15 gm Q15M PRN BUCCAL DECREASED GLUCOSE; Start 05/03/18 at 14:30 IV Flush (NS 10 ml) 10 ml PRN PRN IV IV PROTOCOL; Start 05/08/18 at 15:30 Insulin Aspart (Novolog Insulin Pen) NOVOLOG *MILD* ALGORITHM WITH MEALS BEDTIME SC Last administered on 05/19/18 11:47; Admin Dose 1 UNIT; Start 05/09/18 at 08:00 Diagnostic Test (Pha) (Accu-Chek) 1 ea 02 XX Last administered on 05/10/18at 02:35; Admin Dose 1 EA; Start 05/09/18 at 02:00 Pantoprazole (Protonix Tab) 40 mg DAILY PO Last administered on 05/19/18at 08:58; Admin Dose 40 MG; Start 05/09/18 at 06:00 Linagliptin (Tradjenta) 5 mg DAILY PO Last administered on 05/19/18 08:58; Admin Dose 5 MG; Start 05/09/18 at 19:30 Lactobacillus Acidophilus/ Rhamnosus (Culturelle) 1 cap WITH MEALS PO Last administered on 05/19/18 11:46; Admin Dose 1 CAP; Start 05/11/18 at 11:30 Trazodone HCl (Desyrel) 100 mg HS PO Last administered on 05/18/18 20:53; Ad min Dose 100 MG; Start 05/13/18 at 21:00 Acetaminophen (Tylenol Tab) 650 mg Q4H PRN PO MILD PAIN(1-3)OR ELEVATED TEMP Last administered on 05/15/18at 12:34; Admin Dose 650 MG; Start 05/15/18 at 12:00 Ertapenem 1 gm/ Sodium Chloride 100 ml @ 200 mls/hr Q24H IVPB Last administered on 05/18/18at 15:11; Admin Dose 200 MLS/HR; Start 05/15/18 at 16:00 Daptomycin 650 mg/ Sodium Chloride 100 ml @ 200 mls/hr Q24H IVPB Last administered on 05/18/18 16:01; Admin Dose 200 MLS/HR; Start 05/15/18 at 17:00 Insulin Aspart (Novolog Insulin Pen) 10 unit WITH MEALS SC Last administered on 05/16/18 17:45; Admin Dose 10 UNIT; Start 05/16/18 at 17:35; Status Hold Metformin HCl (Glucophage) 500 mg BID WITH MEALS PO Last administered on 05/19/18 08:28; Admin Dose 500 MG; Start 05/18/18 at 18:05 KITTY DUMONT NP May 19, 2018 13:31
[2018-05-19 14:00] VITALS: BP 115/76; PULSE 99; RESP 18
[2018-05-19] MEDS: ERTAPENEM SODIUM 1 GM in SOD CHLORIDE 0.9% 100 ML IVPB SCH (15:39)
[2018-05-19] MEDS: DAPTOMYCIN 650 MG in SOD CHLORIDE 0.9% 100 ML IVPB SCH (16:51)
[2018-05-19 20:00] VITALS: BP 103/58; PULSE 92; RESP 18
[2018-05-19] MEDS: traZODone 50 MG TAB PO SCH (21:14)
[2018-05-20] MEDS: ACCU-CHEK XX SCH ×5 (01:50→20:37)
[2018-05-20 02:00] VITALS: BP 112/66; PULSE 92; RESP 16
[2018-05-20] MEDS: LACTOBACILLUS RHAMNOSUS CAP PO SCH ×3 (08:12→18:00)
[2018-05-20] MEDS: metFORMIN 500 MG TAB PO SCH ×2 (08:14→18:00)
[2018-05-20] MEDS: INSULIN ASPART [NOVOLOG] 3 ML PEN SC SCH ×4 (08:15→20:27)
[2018-05-20] MEDS: LINAGLIPTIN 5 MG TABLET PO SCH (08:17)
[2018-05-20] MEDS: SODIUM HYPOCHLORITE (1/40) 1 APPLIC BTL IRR SCH (08:39)
[2018-05-20] MEDS: PANTOPRAZOLE (EC) 40 MG TAB PO SCH (08:41)
[2018-05-20] MEDS: HEPARIN 5,000 UNIT/1 ML VIAL SC SCH ×2 (08:42→20:28)
[2018-05-20] MEDS: DOCUSATE SODIUM 100 MG CAP PO SCH ×2 (08:43→20:28)
[2018-05-20] MEDS: POLYETHYLENE GLYCOL 17 GM PACKET PO SCH (08:43)
[2018-05-20 09:18] VITALS: BP 99/50; PULSE 81; RESP 18
[2018-05-20 10:30] VITALS: BP 102/56; PULSE 80
--- NOTE | 2018-05-20 12:54 | CONS ---
Assessment/Plan Assessment/Plan Hospital Course (Demo Recall) No events, looks comfortable, no fevers Wound culture grew VRE E. coli Corynebacterium species and Bacteroides fragilis Antimicrobials: Invanz, Dapto PHYSICAL EXAMINATION: GENERAL: This is a well-developed, well-nourished, middle-aged man who is awake, in no distress. HEENT: Head is atraumatic, normocephalic. NECK: Supple. CHEST: Rise symmetrical. Breath sounds diminished to bases. HEART: S1, S2. ABDOMEN: Soft. Bowel tones are present. EXTREMITIES: With left extremity in a cast Assessment: 1. Left diabetic foot ulceration with ongoing osteomyelitis and cellulitis, s/p surgical intervention 05/08/18 2. Diabetes 3. Obesity 4. S/p ALESSANDRO 5. S/p adverse reaction to Flagyl==> vomiting Plan: Stable, pending discharge arrangements, last dose abx June 19 Consultation Date/Type/Reason Admit Date/Time Apr 29, 2018 at 18:18 Initial Consult Date Type of Consult id Date/Time of Note DATE: 05/20/18 TIME: 12:54 Exam/Review of Systems Exam Vitals Vital Signs Date Temp Pulse Resp B/P (MAP) Pulse Ox O2 O2 Flow FiO2 Time Delivery Rate 05/20/18 80 102/56 10:30 (71) 05/20/18 97.8 18 98 Room Air 09:18 Intake and Output 05/19/18 05/19/18 05/20/18 1515:00 23:00 07:00 IntakeIntake Total 800 ml OutputOutput Total 400 ml 250 ml BalanceBalance 400 ml -250 ml Results Result Diagram: 05/19/18 0549 05/19/18 0549 Results 24hrs Laboratory Tests Test 05/19/18 17:22 05/19/18 20:35 05/20/18 01:46 05/20/18 01:47 Bedside Glucose 203 195 203 211 Test 05/20/18 08:11 05/20/18 09:02 05/20/18 12:10 Bedside Glucose 201 263 H Erythrocyte 50 H Sedimentation Rate Medications Medication Current Medications IV Flush (NS 3 ml) 3 ml PER PROTOCOL IV ; Start 04/29/18 at 19:00 Acetaminophen/ Hydrocodone Bitart ([place] (5/325)) 2 tab Q6H PRN PO .SEVERE PAIN 7-10 Last administered on 05/01/18 11:42; Admin Dose 2 TAB; Start 04/29/18 at 19:00 Heparin Sodium (Porcine) (Heparin (5000 Units/1ml)) 5,000 unit Q12 SC Last administered on 05/20/18 08:42; Admin Dose 5,000 UNIT; Start 04/29/18 at 21:00 Ondansetron HCl (Zofran Inj) 4 mg Q4H PRN IV NAUSEA AND/OR VOMITING Last administered on 05/17/18 17:44; Admin Dose 4 MG; Start 04/30/18 at 05:00 Sodium Hypochlorite (Dakin'S (Dilute )) 1 applic DAILY IRR Last administere d on 05/11/18 08:39; Admin Dose 1 APPLIC; Start 04/30/18 at 15:00 Albuterol/ Ipratropium (Duoneb) 3 ml Q4H RESP THERAPY PRN HHN SHORTNESS OF BREATH Last administered on 05/04/18 17:15; Admin Dose 3 ML; Start 04/30/18 at 20:00 Docusate Sodium (Colace) 100 mg BID PO Last administered on 05/15/18 21:02; Admin Dose 100 MG; Start 05/02/18 at 21:00 Polyethylene Glycol (Miralax) 17 gm DAILY PO Last administered on 05/10/18 09:00; Admin Dose 17 GM; Start 05/02/18 at 20:30 Diagnostic Test (Pha) (Accu-Chek) 1 ea AC MEALS AND BEDTIME XX Last administered on 05/18/18at 17:43; Admin Dose 1 EA; Start 05/03/18 at 17:35 Miscellaneous Information 1 ea NOTE XX ; Start 05/03/18 at 14:30 Glucose (Glutose) 15 gm Q15M PRN PO DECREASED GLUCOSE; Start 05/03/18 at 14:30 Glucose (Glutose) 22.5 gm Q15M PRN PO DECREASED GLUCOSE; Start 05/03/18 at 14:30 Dextrose (D50w Syringe) 25 ml Q15M PRN IV DECREASED GLUCOSE; Start 05/03/18 at 14:30 Dextrose (D50w Syringe) 50 ml Q15M PRN IV DECREASED GLUCOSE; Start 05/03/18 at 14:30 Glucagon (Glucagen) 1 mg Q15M PRN IM DECREASED GLUCOSE; Start 05/03/18 at 14:30 Glucose (Glutose) 15 gm Q15M PRN BUCCAL DECREASED GLUCOSE; Start 05/03/18 at 14:30 IV Flush (NS 10 ml) 10 ml PRN PRN IV IV PROTOCOL; Start 05/08/18 at 15:30 Insulin Aspart (Novolog Insulin Pen) NOVOLOG *MILD* ALGORITHM WITH MEALS BEDTIME SC Last administered on 05/20/18 12:15; Admin Dose 4 UNIT; Start 05/09/18 at 08:00 Diagnostic Test (Pha) (Accu-Chek) 1 ea 02 XX Last administered on 05/10/18at 0 2:35; Admin Dose 1 EA; Start 05/09/18 at 02:00 Pantoprazole (Protonix Tab) 40 mg DAILY PO Last administered on 05/20/18 08:41; Admin Dose 40 MG; Start 05/09/18 at 06:00 Linagliptin (Tradjenta) 5 mg DAILY PO Last administered on 05/20/18 08:17; Admin Dose 5 MG; Start 05/09/18 at 19:30 Lactobacillus Acidophilus/ Rhamnosus (Culturelle) 1 cap WITH MEALS PO Last administered on 05/20/18 12:15; Admin Dose 1 CAP; Start 05/11/18 at 11:30 Trazodone HCl (Desyrel) 100 mg HS PO Last administered on 05/19/18 21:14; Admin Dose 100 MG; Start 05/13/18 at 21:00 Acetaminophen (Tylenol Tab) 650 mg Q4H PRN PO MILD PAIN(1-3)OR ELEVATED TEMP Last administered on 05/15/18 12:34; Admin Dose 650 MG; Start 05/15/18 at 12:00 Ertapenem 1 gm/ Sodium Chloride 100 ml @ 200 mls/hr Q24H IVPB Last administered on 05/19/18 15:39; Admin Dose 200 MLS/HR; Start 05/15/18 at 16:00 Daptomycin 650 mg/ Sodium Chloride 100 ml @ 200 mls/hr Q24H IVPB Last administered on 05/19/18 16:51; Admin Dose 200 MLS/HR; Start 05/15/18 at 17:00 Insulin Aspart (Novolog Insulin Pen) 10 unit WITH MEALS SC Last administered o n 05/16/18at 17:45; Admin Dose 10 UNIT; Start 05/16/18 at 17:35; Status Hold Metformin HCl (Glucophage) 1,000 mg BID WITH MEALS PO ; Start 05/20/18 at 18:05 KITTY DUMONT NP May 20, 2018 12:54
--- NOTE | 2018-05-20 14:27 | PN ---
Date/Time of Note Date/Time of Note DATE: 05/20/18 TIME: 14:24 Objective Vitals Vital Signs Date Temp Pulse Resp B/P (MAP) Pulse Ox O2 O2 Flow FiO2 Time Delivery Rate 05/20/18 80 102/56 10:30 (71) 05/20/18 97.8 18 98 Room Air 09:18 Intake and Output 05/19/18 05/19/18 05/20/18 1515:00 23:00 07:00 IntakeIntake Total 800 ml OutputOutput Total 400 ml 250 ml BalanceBalance 400 ml -250 ml Results Result Diagram: 05/19/18 0549 05/19/18 0549 Medications Medications Current Medications IV Flush (NS 3 ml) 3 ml PER PROTOCOL IV ; Start 04/29/18 at 19:00 Acetaminophen/ Hydrocodone Bitart ([place] (5/325)) 2 tab Q6H PRN PO .SEVERE PAIN 7-10 Last administered on 05/01/18 11:42; Admin Dose 2 TAB; Start 04/29/18 at 19:00 Heparin Sodium (Porcine) (Heparin (5000 Units/1ml)) 5,000 unit Q12 SC Last administered on 05/20/18 08:42; Admin Dose 5,000 UNIT; Start 04/29/18 at 21:00 Ondansetron HCl (Zofran Inj) 4 mg Q4H PRN IV NAUSEA AND/OR VOMITING Last administered on 05/17/18 17:44; Admin Dose 4 MG; Start 04/30/18 at 05:00 Sodium Hypochlorite (Dakin'S (Dilute 40)) 1 applic DAILY IRR Last administered on 05/11/18 08:39; Admin Dose 1 APPLIC; Start 04/30/18 at 15:00 Albuterol/ Ipratropium (Duoneb) 3 ml Q4H RESP THERAPY PRN HHN SHORTNESS OF BREATH Last administered on 05/04/18 17:15; Admin Dose 3 ML; Start 04/30/18 at 20:00 Docusate Sodium (Colace) 100 mg BID PO Last administered on 05/15/18 21:02; Admin Dose 100 MG; Start 05/02/18 at 21:00 Polyethylene Glycol (Miralax) 17 gm DAILY PO Last administered on 05/10/18 09:00; Admin Dose 17 GM; Start 05/02/18 at 20:30 Diagnostic Test (Pha) (Accu-Chek) 1 ea AC MEALS AND BEDTIME XX Last administered on 05/18/18at 17:43; Admin Dose 1 EA; Start 05/03/18 at 17:35 Miscellaneous Information 1 ea NOTE XX ; Start 05/03/18 at 14:30 Glucose (Glutose) 15 gm Q15M PRN PO DECREASED GLUCOSE; Start 05/03/18 at 14:30 Glucose (Glutose) 22.5 gm Q15M PRN PO DECREASED GLUCOSE; Start 05/03/18 at 14:30 Dextrose (D50w Syringe) 25 ml Q15M PRN IV DECREASED GLUCOSE; Start 05/03/18 at 14:30 Dextrose (D50w Syringe) 50 ml Q15M PRN IV DECREASED GLUCOSE; Start 05/03/18 at 14:30 Glucagon (Glucagen) 1 mg Q15M PRN IM DECREASED GLUCOSE; Start 05/03/18 at 14:30 Glucose (Glutose) 15 gm Q15M PRN BUCCAL DECREASED GLUCOSE; Start 05/03/18 at 14:30 IV Flush (NS 10 ml) 10 ml PRN PRN IV IV PROTOCOL; Start 05/08/18 at 15:30 Insulin Aspart (Novolog Insulin Pen) NOVOLOG *MILD* ALGORITHM WITH MEALS BEDTIME SC Last administered on 05/20/18at 12:15; Admin Dose 4 UNIT; Start 05/09/18 at 08:00 Diagnostic Test (Pha) (Accu-Chek) 1 ea 02 XX Last administered on 05/10/18at 02: 35; Admin Dose 1 EA; Start 05/09/18 at 02:00 Pantoprazole (Protonix Tab) 40 mg DAILY PO Last administered on 05/20/18 08:41; Admin Dose 40 MG; Start 05/09/18 at 06:00 Linagliptin (Tradjenta) 5 mg DAILY PO Last administered on 05/20/18at 08:17; Admin Dose 5 MG; Start 05/09/18 at 19:30 Lactobacillus Acidophilus/ Rhamnosus (Culturelle) 1 cap WITH MEALS PO Last administered on 05/20/18at 12:15; Admin Dose 1 CAP; Start 05/11/18 at 11:30 Trazodone HCl (Desyrel) 100 mg HS PO Last administered on 05/19/18at 21:14; Admin Dose 100 MG; Start 05/13/18 at 21:00 Acetaminophen (Tylenol Tab) 650 mg Q4H PRN PO MILD PAIN(1-3)OR ELEVATED TEMP Last administered on 05/15/18at 12:34; Admin Dose 650 MG; Start 05/15/18 at 12:00 Ertapenem 1 gm/ Sodium Chloride 100 ml @ 200 mls/hr Q24H IVPB Last administered on 05/19/18at 15:39; Admin Dose 200 MLS/HR; Start 05/15/18 at 16:00 Daptomycin 650 mg/ Sodium Chloride 100 ml @ 200 mls/hr Q24H IVPB Last administered on 05/19/18at 16:51; Admin Dose 200 MLS/HR; Start 05/15/18 at 17:00 Insulin Aspart (Novolog Insulin Pen) 10 unit WITH MEALS SC Last administered on 05/16/18at 17:45; Admin Dose 10 UNIT; Start 05/16/18 at 17:35; Status Hold Metformin HCl (Glucophage) 1,000 mg BID WITH MEALS PO ; Start 05/20/18 at 18:05 VTE Prophylaxis Risk score (from Ns)>0 risk: 1 SCD applied [place]from [facility] [place] No SCD contraindication: other Lines/Catheters IV Catheter Type: Juarez in Place: No Assessment/Plan Hospital Course Subjective Patient has some dizziness when getting upright too fast, also with PT, currently otherwise doing well. Objective Physical exam General: Patient is laying in bed and answers questions appropriately Mentation: Patient is alert and oriented 4, Head: Normocephalic atraumatic Eyes: EOMI, pupils reactive to light Neck: Supple, nontender, midline Respiratory: Clear to auscultation bilaterally Cardiovascular: regular rate, no obvious murmurs Gastrointestinal: non-tender to palpation, bowel sounds heard. 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: Moves all extremities spontaneously Skin: Left foot bandaged, CDI, casted 1. Left foot wound with osteomyelitis- stable - Podiatry on board and appreciate recommendations. Continue all current care given request for limb salvage by patient. Discussed with patient that the cast duration will be determined at his outpatient follow up appt in 1-2 weeks after discharge - Status post multiple debridement and surgical correction - We will need antibiotics until 06/19/18 - ID on board for antibiotic management and appreciate consultation. Continue on Invanz and Daptomycin Dizziness -May be orthostatic, orthostatic vitals have been ordered -We will get CT of the head, MRI cannot be done due to metal in the foot from surgery per podiatry. 2. Diabetes mellitus - patient has been experiencing multiple episodes of symptomatic hypoglycemia. But now under control -Patient has very interesting course regarding his diabetes where it was well controlled and after surgery it was very not controlled and insulin and NovoLog had to be adjusted, now it seems to be relatively stable, however patient has not needed Lantus for many days now and is doing well on regimen of metformin and linagliptin. Continue current treatment. Nausea, vomiting -Secondary to Flagyl, no significant nausea and vomiting except for one patient had increased dizziness when working with PT and vomited just at one time from the dizziness, no abdominal pain. 3. Dyslipidemia - Continue home meds 4. Disposition -We will need to confirm patient's ride to [facility] on a weekly basis before discharge to [facility], CT head pending, orthostatic vitals pending for patient's unexplained dizziness. - JANELL YOO May 20, 2018 14:27
[2018-05-20 14:35] VITALS: BP 108/69; PULSE 88; RESP 18
[2018-05-20 15:31] VITALS: BP_SYST 101; BP_SYST 105; BP_DIAS 59; BP_DIAS 62; PULSE 92
[2018-05-20] MEDS: ERTAPENEM SODIUM 1 GM in SOD CHLORIDE 0.9% 100 ML IVPB SCH (16:21)
[2018-05-20] MEDS: DAPTOMYCIN 650 MG in SOD CHLORIDE 0.9% 100 ML IVPB SCH (17:46)
[2018-05-20 20:14] VITALS: BP 110/65; PULSE 87; RESP 18
[2018-05-20] MEDS: traZODone 50 MG TAB PO SCH (20:28)
[2018-05-21 01:50] VITALS: BP 125/69; PULSE 88; RESP 16
[2018-05-21] MEDS: ACCU-CHEK XX SCH ×4 (02:28→17:31)
[2018-05-21 07:56] VITALS: BP 104/58; PULSE 81; RESP 16
[2018-05-21] MEDS: LACTOBACILLUS RHAMNOSUS CAP PO SCH ×3 (07:59→16:43)
[2018-05-21] MEDS: HEPARIN 5,000 UNIT/1 ML VIAL SC SCH (08:01)
[2018-05-21] MEDS: INSULIN ASPART [NOVOLOG] 3 ML PEN SC SCH ×3 (08:01→17:29)
[2018-05-21] MEDS: metFORMIN 500 MG TAB PO SCH ×2 (08:02→17:30)
[2018-05-21] MEDS: PANTOPRAZOLE (EC) 40 MG TAB PO SCH (08:02)
[2018-05-21] MEDS: LINAGLIPTIN 5 MG TABLET PO SCH (08:02)
[2018-05-21] MEDS: DOCUSATE SODIUM 100 MG CAP PO SCH (08:03)
[2018-05-21] MEDS: SODIUM HYPOCHLORITE (1/40) 1 APPLIC BTL IRR SCH (08:03)
[2018-05-21] MEDS: POLYETHYLENE GLYCOL 17 GM PACKET PO SCH (08:03)
[2018-05-21] MEDS ORDERED: MAGNESIUM OXIDE 400 MG TAB PO ONE (10:00)
--- NOTE | 2018-05-21 10:17 | DS ---
Date/Time of Note Date/Time of Note DATE: 05/21/18 TIME: 10:17 Discharge Summary Admission/Discharge Info Admit Date/Time Apr 29, 2018 at 18:18 Discharge Date/Time Patient Condition: Stable Hospital Course Patient is a male with past medical history significant for diabetes mellitus, chronic left foot wound, dyslipidemia, questionable hypertension who presented to [facility] for foot surgery. Patient received multiple debridement and surgical correction by podiatry which included a pin placement of the left foot. Patient was also seen by infectious disease and diagnosed with osteomyelitis and will need Invanz and daptomycin until June 19, 2018. Patient had multiple issues during the stay however issues have sign ificantly resolved. Patient had episodes of nausea and vomiting which was attributed to Flagyl use and it subsided significantly at time of discharge to absolutely no nausea and vomiting and no abdominal pain. Patient also complained of mild dizziness before discharge however CT of the head was negative and patient's dizziness with sitting up and standing significantly resolved spontaneously. Orthostatic vitals were taken and were not conclusive of orthostatic hypotension. Patient is feeling well and was placed on a diabetic regimen that controls his sugars. Patient originally needed Lantus in the outpatient setting however when placed on different oral medications patient's blood sugars did significantly improve. Patient had a wide range of blood sugar during this stay due to his body continuously readjusting and diet. At this time patient is doing very well on Tradjenta and metformin and may or may not need insulin sliding scale for extra coverage. Further adjustments will be made by at nursing facility or his primary care physician. Patient will have a short stay at the assisted facility and then follow-up with Dr. [place], podiatry on a normal basis every , transportation will be provided by [facility]. Discharge diagnosis Left foot wound with osteomyelitis status post incision and debridement and surgical correction with pinning Dizziness, resolving Diabetes mellitus, chronic Nausea vomiting, resolved This lipidemia, chronic Home Meds Reported Medications Lisinopril* (Lisinopril*) 20 Mg Tablet, 20 MG PO DAILY, #30 TAB 04/29/18 Glipizide* (Glipizide*) 10 Mg Tablet, 10 MG PO AC BREAKFAST DINNER, TAB 04/29/18 Ibuprofen* (Ibuprofen*) 800 Mg Tablet, 800 MG PO Q6H PRN for PAIN, TAB 04/29/18 Insulin Glargine,Hum.rec.anlog (Kayla Feliciano U-100) 100 Unit/1 Ml Ins uln.pen, UNIT SC SLIDING SCALE, EA 04/29/18 Simvastatin* (Zocor*) 20 Mg Tablet, 20 MG PO QHS, #30 TAB 04/29/18 Fluconazole* (Fluconazole*) 200 Mg Tablet, 400 MG PO DAILY, TAB 04/29/18 Levofloxacin* (Levofloxacin*) 750 Mg Tablet, 750 MG PO DAILY, TAB 04/29/18 Primary Care Provider Not On Staff Doctor Time spent on discharge: > 30 minutes Pending Labs Laboratory Tests Test 05/20/18 12:10 05/20/18 17:55 05/20/18 20:23 05/21/18 02:24 Bedside 263 262 205 135 Glucose mg/dL (70-220) mg/dL (70-220) mg/dL (70-220) mg/dL (70-220) Test 05/21/18 07:56 05/21/18 07:58 Bedside 159 Glucose mg/dL (70-220) White Blood 7.5 Count 10^3/ul (4.8-1 0.8) Red Blood 3.29 Count 10^6/ul (4.70- 6.10) Hemoglobin 9.3 g/dl (14.0-18. 0) Hematocrit 29.1 % (42.0-52.0) Mean 88.4 Corpuscular fl (82.0-101.0 Volume ) Mean 28.3 Corpuscular pg (29.0-33.0) Hemoglobin Mean 32.0 Corpuscular g/dl (32.0-37. Hemoglobin Conc 0) ent Red Cell 15.9 Distribution % (11.5-14.5) Width Platelet Count 365 10^3/UL (140-4 15) Mean Platelet 9.2 Volume fl (7.4-10.4) Immature 1.900 Granulocytes % % (0.001-0.429 ) Neutrophils % 51.4 % (39.0-77.0) Lymphocytes % 35.0 % (15.0-51.0) Monocytes % 8.5 % (0.0-11.0) Eosinophils % 2.3 % (0.0-7.0) Basophils % 0.9 % (0.0-2.0) Nucleated Red 0.0 Blood Cells % /100WBC (0.0-0 .0) Immature 0.140 Granulocytes # 10^3/ul (0.0-0 .031) Neutrophils # 3.8 10^3/ul (1.6-7 .5) Lymphocytes # 2.6 10^3/ul (0.8-2 .9) Monocytes # 0.6 10^3/ul (0.3-0 .9) Eosinophils # 0.2 10^3/ul (0.0-0 .5) Basophils # 0.1 10^3/ul (0.0-0 .1) Nucleated Red 0.0 Blood Cells # 10^3/ul (0.0-0 .0) Sodium Level 139 mmol/L (135-14 4) Potassium 3.7 Level mmol/L (3.5-5. 1) Chloride Level 109 mmol/L (97-110 ) Carbon Dioxide 21 Level mmol/L (21-31) Anion Gap 9 (5-13) Blood Urea 13 Nitrogen mg/dl (7-20) Creatinine 0.86 mg/dl (0.61-1. 24) Est Glomerular > 60 Filtrat mL/min (>60) Rate mL/min Glucose Level 152 mg/dl (70-220) Calcium Level 9.2 mg/dl (8.4-10. 2) Phosphorus 3.5 Level mg/dl (2.5-4.9 ) Magnesium 1.6 Level mg/dl (1.7-2.5 ) JANELL YOO May 21, 2018 10:17
[2018-05-21] MEDS ORDERED: LINA5TAB PO (10:18)
[2018-05-21] MEDS ORDERED: TRA50 PO (10:18)
[2018-05-21] MEDS ORDERED: METF-849 PO (10:18)
--- NOTE | 2018-05-21 10:51 | PN ---
Date/Time of Note Date/Time of Note DATE: 05/19/18 TIME: 10:49 Objective Vitals Vital Signs Date Temp Pulse Resp B/P (MAP) Pulse Ox O2 O2 Flow FiO2 Time Delivery Rate 05/21/18 98.2 81 16 104/58 97 Room Air 07:56 (73) Intake and Output 05/20/18 05/20/18 05/21/18 1515:00 23:00 07:00 IntakeIntake Total 1060 ml 800 ml 240 ml OutputOutput Total 275 ml 700 ml BalanceBalance 1060 ml 525 ml -460 ml Results Result Diagram: 05/21/18 0758 05/21/18 0758 Medications Medications Current Medications IV Flush (NS 3 ml) 3 ml PER PROTOCOL IV ; Start 04/29/18 at 19:00 Acetaminophen/ Hydrocodone Bitart ([place] (5/325)) 2 tab Q6H PRN PO .SEVERE PAIN 7-10 Last administered on 05/01/18 11:42; Admin Dose 2 TAB; Start 04/29/18 at 19:00 Heparin Sodium (Porcine) (Heparin (5000 Units/1ml)) 5,000 unit Q12 SC Last administered on 05/21/18 08:01; Admin Dose 5,000 UNIT; Start 04/29/18 at 21:00 Ondansetron HCl (Zofran Inj) 4 mg Q4H PRN IV NAUSEA AND/OR VOMITING Last administered on 05/17/18 17:44; Admin Dose 4 MG; Start 04/30/18 at 05:00 Sodium Hypochlorite (Dakin'S (Dilute 40)) 1 applic DAILY IRR Last administered on 05/11/18 08:39; Admin Dose 1 APPLIC; Start 04/30/18 at 15:00 Albuterol/ Ipratropium (Duoneb) 3 ml Q4H RESP THERAPY PRN HHN SHORTNESS OF BREATH Last administered on 05/04/18 17:15; Admin Dose 3 ML; Start 04/30/18 at 20:00 Docusate Sodium (Colace) 100 mg BID PO Last administered on 05/15/18 21:02; A dmin Dose 100 MG; Start 05/02/18 at 21:00 Diagnostic Test (Pha) (Accu-Chek) 1 ea AC MEALS AND BEDTIME XX Last administered on 3/25/19at 17:43; Admin Dose 1 EA; Start 05/03/18 at 17:35 Miscellaneous Information 1 ea NOTE XX ; Start 05/03/18 at 14:30 Glucose (Glutose) 15 gm Q15M PRN PO DECREASED GLUCOSE; Start 05/03/18 at 14:30 Glucose (Glutose) 22.5 gm Q15M PRN PO DECREASED GLUCOSE; Start 05/03/18 at 14:30 Dextrose (D50w Syringe) 25 ml Q15M PRN IV DECREASED GLUCOSE; Start 05/03/18 at 14:30 Dextrose (D50w Syringe) 50 ml Q15M PRN IV DECREASED GLUCOSE; Start 05/03/18 at 14:30 Glucagon (Glucagen) 1 mg Q15M PRN IM DECREASED GLUCOSE; Start 05/03/18 at 14:30 Glucose (Glutose) 15 gm Q15M PRN BUCCAL DECREASED GLUCOSE; Start 05/03/18 at 14:30 IV Flush (NS 10 ml) 10 ml PRN PRN IV IV PROTOCOL Last administered on 05/20/18at 20:32; Admin Dose 10 ML; Start 05/08/18 at 15:30 Insulin Aspart (Novolog Insulin Pen) NOVOLOG *MILD* ALGORITHM WITH MEALS BEDTIME SC Last administered on 05/21/18 08:01; Admin Dose 1 UNIT; Start 05/09/18 at 08:00 Diagnostic Test (Pha) (Accu-Chek) 1 ea 02 XX Last administered on 05/21/18 02:28; Admin Dose 1 EA; Start 05/09/18 at 02:00 Pantoprazole (Protonix Tab) 40 mg DAILY PO Last administered on 05/21/18 08:02; Admin Dose 40 MG; Start 05/09/18 at 06:00 Linagliptin (Tradjenta) 5 mg DAILY PO Last administered on 05/21/18 08:02; Admin Dose 5 MG; Start 05/09/18 at 19:30 Lactobacillus Acidophilus/ Rhamnosus (Culturelle) 1 cap WITH MEALS PO Last administered on 05/21/18 07:59; Admin Dose 1 CAP; Start 05/11/18 at 11:30 Trazodone HCl (Desyrel) 100 mg HS PO Last administered on 05/20/18 20:28; Admin Dose 100 MG; Start 05/13/18 at 21:00 Acetaminophen (Tylenol Tab) 650 mg Q4H PRN PO MILD PAIN(1-3)OR ELEVATED TEMP Last administered on 05/15/18at 12:34; Admin Dose 650 MG; Start 05/15/18 at 12:00 Ertapenem 1 gm/ Sodium Chloride 100 ml @ 200 mls/hr Q24H IVPB Last administered on 05/20/18at 16:21; Admin Dose 200 MLS/HR; Start 05/15/18 at 16:00 Daptomycin 650 mg/ Sodium Chloride 100 ml @ 200 mls/hr Q24H IVPB Last administered on 05/20/18at 17:46; Admin Dose 200 MLS/HR; Start 05/15/18 at 17:00 Insulin Aspart (Novolog Insulin Pen) 10 unit WITH MEALS SC Last administered on 05/16/18at 17:45; Admin Dose 10 UNIT; Start 05/16/18 at 17:35; Status Hold Metformin HCl (Glucophage) 1,000 mg BID WITH MEALS PO Last administered on 05/21/18at 08:02; Admin Dose 1,000 MG; Start 05/20/18 at 18:05 VTE Prophylaxis Risk score (from Ns)>0 risk: 6 SCD applied (from [facility] [place] No SCD contraindication: other Lines/Catheters IV Catheter Type: Juarez in Place: No Assessment/Plan Hospital Course This note is intended for May 19, 2018, late addition Subjective No acute changes, Objective Physical exam General: Patient is laying in bed and answers questions appropriately Mentation: Patient is alert and oriented 4, Head: Normocephalic atraumatic Eyes: EOMI, pupils reactive to light Neck: Supple, nontender, midline Respiratory: Clear to auscultation bilaterally Cardiovascular: regular rate, no obvious murmurs Gastrointestinal: non-tender to palpation, bowel sounds heard. 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: Moves all extremities spontaneously Skin: Left foot bandaged, CDI, casted 1. Left foot wound with osteomyelitis- stable - Podiatry on board and appreciate recommendations. Continue all current care given request for limb salvage by patient. Discussed with patient that the cast duration will be determined at his outpatient follow up appt in 1-2 weeks after discharge - Status post multiple debridement and surgical correction - We will need antibiotics until 06/19/18 - ID on board for antibiotic management and appreciate consultation. Continue on Invanz and Daptomycin 2. Diabetes mellitus - patient has been experiencing multiple episodes of symptomatic hypoglycemia. -Patient has very interesting course regarding his diabetes where it was well controlled and after surgery it was very not controlled and insulin and NovoLog had to be adjusted, now it seems to be back trending, will restart a very low dose of Lantus and continue some p.o. medications Nausea, vomiting -Patient's nausea and vomiting has significantly improved, no nausea and vomiting in over 12 hours no abdominal pain, patient may be having side effects of the metformin, instead of just continuing metformin altogether, patient wants to attempt to just lower the medication as metformin is a good oral medication. The patient still not tolerating will DC metformin altogether. 3. Dyslipidemia - Continue home meds 4. Disposition - improving abdominal pain/nausea/vomiting. will need to confirm ride from SNF to podiatry clinic before DC JANELL YOO May 21, 2018 10:51
--- NOTE | 2018-05-21 12:06 | CONS ---
Assessment/Plan Assessment/Plan Hospital Course (Demo Recall) No events, looks comfortable Wound culture grew VRE E. coli Corynebacterium species and Bacteroides fragilis Antimicrobials: Invanz Daptomycin PHYSICAL EXAMINATION: GENERAL: This is a well-developed, well-nourished, middle-aged man who is awake, in no distress. HEENT: Head is atraumatic, normocephalic. NECK: Supple. CHEST: Rise symmetrical. Breath sounds diminished to bases. HEART: S1, S2. ABDOMEN: Soft. Bowel tones are present. EXTREMITIES: With left extremity in a cast Assessment: 1. Left diabetic foot ulceration with ongoing osteomyelitis and cellulitis, s/p surgical intervention 05/08/18 2. Diabetes 3. Obesity 4. S/p ALESSANDRO 5. S/p adverse reaction to Flagyl==> vomiting Plan: Remains stable, pending discharge arrangements, last dose abx June 19 Consultation Date/Type/Reason Admit Date/Time Apr 29, 2018 at 18:18 Initial Consult Date Type of Consult id Date/Time of Note DATE: 05/21/18 TIME: 12:06 Exam/Review of Systems Exam Vitals Vital Signs Date Temp Pulse Resp B/P (MAP) Pulse Ox O2 O2 Flow FiO2 Time Delivery Rate 05/21/18 98.2 81 16 104/58 97 Room Air 07:56 (73) Intake and Output 05/20/18 05/20/18 05/21/18 1515:00 23:00 07:00 IntakeIntake Total 1060 ml 800 ml 240 ml OutputOutput Total 275 ml 700 ml BalanceBalance 1060 ml 525 ml -460 ml Results Result Diagram: 05/21/18 0758 05/21/18 0758 Results 24hrs Laboratory Tests Test 05/20/18 12:10 05/20/18 17:55 05/20/18 20:23 05/21/18 02:24 Bedside Glucose 263 H 262 H 205 135 Test 05/21/18 07:56 05/21/18 07:57 05/21/18 07:58 05/21/18 11:55 Bedside Glucose 159 195 Erythrocyte 46 H Sedimentation Rate White Blood Count 7.5 Red Blood Count 3.29 L Hemoglobin 9.3 L Hematocrit 29.1 L Mean Corpuscular 88.4 Volume Mean Corpuscular 28.3 L Hemoglobin Mean Corpuscular 32.0 Hemoglobin Concent Red Cell 15.9 H Distribution Width Platelet Count 365 Mean Platelet Volume 9.2 Immature 1.900 H Granulocytes % Neutrophils % 51.4 Lymphocytes % 35.0 Monocytes % 8.5 Eosinophils % 2.3 Basophils % 0.9 Nucleated Red Blood 0.0 Cells % Immature 0.140 H Granulocytes # Neutrophils # 3.8 Lymphocytes # 2.6 Monocytes # 0.6 Eosinophils # 0.2 Basophils # 0.1 Nucleated Red Blood 0.0 Cells # Sodium Level 139 Potassium Level 3.7 Chloride Level 109 Carbon Dioxide Level 21 Anion Gap 9 Blood Urea Nitrogen 13 Creatinine 0.86 Est Glomerular > 60 Filtrat Rate mL/min Glucose Level 152 Calcium Level 9.2 Phosphorus Level 3.5 Magnesium Level 1.6 L Medications Medication Current Medications IV Flush (NS 3 ml) 3 ml PER PROTOCOL IV ; Start 04/29/18 at 19:00 Acetaminophen/ Hydrocodone Bitart ([place] (5/325)) 2 tab Q6H PRN PO .SEVERE PAIN 7-10 Last administered on 05/01/18 11:42; Admin Dose 2 TAB; Start 04/29/18 at 19:00 Heparin Sodium (Porcine) (Heparin (5000 Units/1ml)) 5,000 unit Q12 SC Last administered on 05/21/18 08:01; Admin Dose 5,000 UNIT; Start 04/29/18 at 21:00 Ondansetron HCl (Zofran Inj) 4 mg Q4H PRN IV NAUSEA AND/OR VOMITING Last administered on 05/17/18 17:44; Admin Dose 4 MG; Start 04/30/18 at 05:00 Sodium Hypochlorite (Dakin'S (Dilute )) 1 applic DAILY IRR Last administered on 05/11/18 08:39; Admin Dose 1 APPLIC; Start 04/30/18 at 15:00 Albuterol/ Ipratropium (Duoneb) 3 ml Q4H RESP THERAPY PRN HHN SHORTNESS OF BREATH Last administered on 05/04/18 17:15; Admin Dose 3 ML; Start 04/30/18 at 20:00 Docusate Sodium (Colace) 100 mg BID PO Last administered on 05/15/18 21:02; Admin Dose 100 MG; Start 05/02/18 at 21:00 Diagnostic Test (Pha) (Accu-Chek) 1 ea AC MEALS AND BEDTIME XX Last admi nistered on 05/18/18at 17:43; Admin Dose 1 EA; Start 05/03/18 at 17:35 Miscellaneous Information 1 ea NOTE XX ; Start 05/03/18 at 14:30 Glucose (Glutose) 15 gm Q15M PRN PO DECREASED GLUCOSE; Start 05/03/18 at 14:30 Glucose (Glutose) 22.5 gm Q15M PRN PO DECREASED GLUCOSE; Start 05/03/18 at 14:30 Dextrose (D50w Syringe) 25 ml Q15M PRN IV DECREASED GLUCOSE; Start 05/03/18 at 14:30 Dextrose (D50w Syringe) 50 ml Q15M PRN IV DECREASED GLUCOSE; Start 05/03/18 at 14:30 Glucagon (Glucagen) 1 mg Q15M PRN IM DECREASED GLUCOSE; Start 05/03/18 at 14:30 Glucose (Glutose) 15 gm Q15M PRN BUCCAL DECREASED GLUCOSE; Start 05/03/18 at 14:30 IV Flush (NS 10 ml) 10 ml PRN PRN IV IV PROTOCOL Last administered on 05/20/18at 20:32; Admin Dose 10 ML; Start 05/08/18 at 15:30 Insulin Aspart (Novolog Insulin Pen) NOVOLOG *MILD* ALGORITHM WITH MEALS BEDTIME SC Last administered on 05/21/18 11:59; Admin Dose 2 UNIT; Start 05/09/18 at 08:00 Diagnostic Test (Pha) (Accu-Chek) 1 ea 02 XX Last administered on 05/21/18 02:28; Admin Dose 1 EA; Start 05/09/18 at 02:00 Pantoprazole (Protonix Tab) 40 mg DAILY PO Last administered on 05/21/18 08:02; Admin Dose 40 MG; Start 05/09/18 at 06:00 Linagliptin (Tradjenta) 5 mg DAILY PO Last administered on 05/21/18 08:02; Admin Dose 5 MG; Start 05/09/18 at 19:30 Lactobacillus Acidophilus/ Rhamnosus (Culturelle) 1 cap WITH MEALS PO Last administered on 05/21/18 10:49; Admin Dose 1 CAP; Start 05/11/18 at 11:30 Trazodone HCl (Desyrel) 100 mg HS PO Last administered on 05/20/18 20:28; Admin Dose 100 MG; Start 05/13/18 at 21:00 Acetaminophen (Tylenol Tab) 650 mg Q4H PRN PO MILD PAIN(1-3)OR ELEVATED TEMP Last administered on 05/15/18 12:34; Admin Dose 650 MG; Start 05/15/18 at 12:00 Ertapenem 1 gm/ Sodium Chloride 100 ml @ 200 mls/hr Q24H IVPB Last adm inistered on 05/20/18 16:21; Admin Dose 200 MLS/HR; Start 05/15/18 at 16:00 Daptomycin 650 mg/ Sodium Chloride 100 ml @ 200 mls/hr Q24H IVPB Last administered on 05/20/18 17:46; Admin Dose 200 MLS/HR; Start 05/15/18 at 17:00 Insulin Aspart (Novolog Insulin Pen) 10 unit WITH MEALS SC Last administered on 05/16/18 17:45; Admin Dose 10 UNIT; Start 05/16/18 at 17:35; Status Hold Metformin HCl (Glucophage) 1,000 mg BID WITH MEALS PO Last administered on 05/21/18 08:02; Admin Dose 1,000 MG; Start 05/20/18 at 18:05 KITTY DUMONT NP May 21, 2018 12:06
--- NOTE | 2018-05-21 13:07 | CONS ---
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 Non weight bearing to left lower extremity. X-rays ordered to left foot. Patient will need to follow up in [facility] wound care clinic and is planned for SNF disposition. Patient will need transportation weekly for the clinic visit. Minimum of 2 month follow up in clinic or until wound resolution. Given hx of osteomyelitis and infection, patient would benefit from outpatient HBO therapy. Patient is stable from podiatry stand point for discharge. Consultation Date/Type/Reason Admit Date/Time Apr 29, 2018 at 18:18 Initial Consult Date Date/Time of Note DATE: 05/21/18 TIME: 13:06 24 HR Interval Summary Free Text/Dictation No acute events overnight. Exam/Review of Systems Exam Vitals Vital Signs Date Temp Pulse Resp B/P (MAP) Pulse Ox O2 O2 Flow FiO2 Time Delivery Rate 05/21/18 98.2 81 16 104/58 97 Room Air 07:56 (73) Intake and Output 05/20/18 05/20/18 05/21/18 1515:00 23:00 07:00 IntakeIntake Total 1060 ml 800 ml 240 ml OutputOutput Total 275 ml 700 ml BalanceBalance 1060 ml 525 ml -460 ml Exam cast clean dry and intact, no proximal streaking, no strikethrough drainage appreciated, no foul odor. Results Result Diagram: 05/21/18 0758 05/21/18 0758 Results 24hrs Laboratory Tests Test 05/20/18 17:55 05/20/18 20:23 05/21/18 02:24 05/21/18 07:56 Bedside Glucose 262 H 205 135 159 Test 05/21/18 07:57 05/21/18 07:58 05/21/18 11:55 Erythrocyte 46 H Sedimentation Rate White Blood Count 7.5 Red Blood Count 3.29 L Hemoglobin 9.3 L Hematocrit 29.1 L Mean Corpuscular 88.4 Volume Mean Corpuscular 28.3 L Hemoglobin Mean Corpuscular 32.0 Hemoglobin Concent Red Cell 15.9 H Distribution Width Platelet Count 365 Mean Platelet Volume 9.2 Immature 1.900 H Granulocytes % Neutrophils % 51.4 Lymphocytes % 35.0 Monocytes % 8.5 Eosinophils % 2.3 Basophils % 0.9 Nucleated Red Blood 0.0 Cells % Immature 0.140 H Granulocytes # Neutrophils # 3.8 Lymphocytes # 2.6 Monocytes # 0.6 Eosinophils # 0.2 Basophils # 0.1 Nucleated Red Blood 0.0 Cells # Sodium Level 139 Potassium Level 3.7 Chloride Level 109 Carbon Dioxide Level 21 Anion Gap 9 Blood Urea Nitrogen 13 Creatinine 0.86 Est Glomerular > 60 Filtrat Rate mL/min Glucose Level 152 Calcium Level 9.2 Phosphorus Level 3.5 Magnesium Level 1.6 L Bedside Glucose 195 Medications Medication Current Medications IV Flush (NS 3 ml) 3 ml PER PROTOCOL IV ; Start 04/29/18 at 19:00 Acetaminophen/ Hydrocodone Bitart ([place] (5/325)) 2 tab Q6H PRN PO .SEVERE PAIN 7-10 Last administered on 05/01/18 11:42; Admin Dose 2 TAB; Start 04/29/18 at 19:00 Heparin Sodium (Porcine) (Heparin (5000 Units/1ml)) 5,000 unit Q12 SC Last administered on 05/21/18 08:01; Admin Dose 5,000 UNIT; Start 04/29/18 at 21:00 Ondansetron HCl (Zofran Inj) 4 mg Q4H PRN IV NAUSEA AND/OR VOMITING Last administered on 05/17/18 17:44; Admin Dose 4 MG; Start 04/30/18 at 05:00 Sodium Hypochlorite (Dakin'S (Dilute )) 1 applic DAILY IRR Last administered on 05/11/18 08:39; Admin Dose 1 APPLIC; Start 04/30/18 at 15:00 Albuterol/ Ipratropium (Duoneb) 3 ml Q4H RESP THERAPY PRN HHN SHORTNESS OF BREATH Last administered on 05/04/18 17:15; Admin Dose 3 ML; Start 04/30/18 at 20:00 Docusate Sodium (Colace) 100 mg BID PO Last administered on 05/15/18 21:02; Admin Dose 100 MG; Start 05/02/18 at 21:00 Diagnostic Test (Pha) (Accu-Chek) 1 ea AC MEALS AND BEDTIME XX Last administered on 3/25/19at 17:43; Admin Dose 1 EA; Start 05/03/18 at 17:35 Miscellaneous Information 1 ea NOTE XX ; Start 05/03/18 at 14:30 Glucose (Glutose) 15 gm Q15M PRN PO DECREASED GLUCOSE; Start 05/03/18 at 14:30 Glucose (Glutose) 22.5 gm Q15M PRN PO DECREASED GLUCOSE; Start 05/03/18 at 14:30 Dextrose (D50w Syringe) 25 ml Q15M PRN IV DECREASED GLUCOSE; Start 05/03/18 at 14:30 Dextrose (D50w Syringe) 50 ml Q15M PRN IV DECREASED GLUCOSE; Start 05/03/18 at 14:30 Glucagon (Glucagen) 1 mg Q15M PRN IM DECREASED GLUCOSE; Start 05/03/18 at 14:30 Glucose (Glutose) 15 gm Q15M PRN BUCCAL DECREASED GLUCOSE; Start 05/03/18 at 14:30 IV Flush (NS 10 ml) 10 ml PRN PRN IV IV PROTOCOL Last administered on 05/20/18at 20:32; Admin Dose 10 ML; Start 05/08/18 at 15:30 Insulin Aspart (Novolog Insulin Pen) NOVOLOG *MILD* ALGORITHM WITH MEALS BEDTIME SC Last administered on 05/21/18 11:59; Admin Dose 2 UNIT; Start 05/09/18 at 08:00 Diagnostic Test (Pha) (Accu-Chek) 1 ea 02 XX Last administered on 05/21/18 02:28; Admin Dose 1 EA; Start 05/09/18 at 02:00 Pantoprazole (Protonix Tab) 40 mg DAILY PO Last administered on 05/21/18 08:02; Admin Dose 40 MG; Start 05/09/18 at 06:00 Linagliptin (Tradjenta) 5 mg DAILY PO Last administered on 05/21/18 08:02; Admin Dose 5 MG; Start 05/09/18 at 19:30 Lactobacillus Acidophilus/ Rhamnosus (Culturelle) 1 cap WITH MEALS PO Last administered on 05/21/18 10:49; Admin Dose 1 CAP; Start 05/11/18 at 11:30 Trazodone HCl (Desyrel) 100 mg HS PO Last administered on 05/20/18 20:28; Admin Dose 100 MG; Start 05/13/18 at 21:00 Acetaminophen (Tylenol Tab) 650 mg Q4H PRN PO MILD PAIN(1-3)OR ELEVATED TEMP Last administered on 05/15/18 12:34; Admin Dose 650 MG; Start 05/15/18 at 12:00 Ertapenem 1 gm/ Sodium Chloride 100 ml @ 200 mls/hr Q24H IVPB Last administered on 05/20/18 16:21; Admin Dose 200 MLS/HR; Start 05/15/18 at 16:00 Daptomycin 650 mg/ Sodium Chloride 100 ml @ 200 mls/hr Q24H IVPB Last administered on 05/20/18 17:46; Admin Dose 200 MLS/HR; Start 05/15/18 at 17:00 Insulin Aspart (Novolog Insulin Pen) 10 unit WITH MEALS SC Last administered on 05/16/18 17:45; Admin Dose 10 UNIT; Start 05/16/18 at 17:35; Status Hold Metformin HCl (Glucophage) 1,000 mg BID WITH MEALS PO Last administered on 05/21/18 08:02; Admin Dose 1,000 MG; Start 05/20/18 at 18:05 NIMISHA HENNING DPM May 21, 2018 13:07
[2018-05-21 14:05] VITALS: BP 90/60; PULSE 92; RESP 16
[2018-05-21] MEDS: ERTAPENEM SODIUM 1 GM in SOD CHLORIDE 0.9% 100 ML IVPB SCH (15:30)
[2018-05-21] MEDS ORDERED: ZYVOX 600 MG TAB PO SCH (16:00)
== END 2018-05-21 20:13 | DRG 616 ==
LOC: E/R 13:52 → PP2 18:18
PROVIDERS: ADMIT Internal Medicine; ATTEND Internal Medicine
PROC: 0KBW0ZZ Excision of Left Foot Muscle, Open Approach (ICD-10-PCS; 2018-04-29)
PROC: 0KBW0ZZ Excision of Left Foot Muscle, Open Approach (ICD-10-PCS; 2018-05-01)
PROC: 0YHN0YZ Insertion of Other Device into Left Foot, Open Approach (ICD-10-PCS; 2018-05-01)
PROC: B41DYZZ Fluoroscopy of Aorta and Bilateral Lower Extremity Arteries using Other Contrast (ICD-10-PCS; 2018-05-06)
PROC: 0KBW0ZZ Excision of Left Foot Muscle, Open Approach (ICD-10-PCS; 2018-05-08)
PROC: 0QBP0ZZ Excision of Left Metatarsal, Open Approach (ICD-10-PCS; 2018-05-08)
PROC: 0QBR0ZZ Excision of Left Toe Phalanx, Open Approach (ICD-10-PCS; 2018-05-08)
PROC: 0HRNXK3 Replacement of Left Foot Skin with Nonautologous Tissue Substitute, Full Thickness, External Approach (ICD-10-PCS; 2018-05-08)
PROC: 0SSN34Z Reposition Left Metatarsal-Phalangeal Joint with Internal Fixation Device, Percutaneous Approach (ICD-10-PCS; 2018-05-08)
PROC: 0YHN0YZ Insertion of Other Device into Left Foot, Open Approach (ICD-10-PCS; 2018-05-08)
PROC: 02HV33Z Insertion of Infusion Device into Superior Vena Cava, Percutaneous Approach (ICD-10-PCS; 2018-05-08)
PROC: 0Y6Y0Z0 Detachment at Left 5th Toe, Complete, Open Approach (ICD-10-PCS; principal; 2018-05-08 18:00)
DX: E11.69 Type 2 diabetes mellitus with other specified complication (principal); L89.893 Pressure ulcer of other site, stage 3; M86.172 Other acute osteomyelitis, left ankle and foot; E87.2 Acidosis; L97.526 Non-pressure chronic ulcer of other part of left foot with bone involvement without evidence of necrosis; L03.116 Cellulitis of left lower limb; E11.52 Type 2 diabetes mellitus with diabetic peripheral angiopathy with gangrene; I96 Gangrene, not elsewhere classified; E11.621 Type 2 diabetes mellitus with foot ulcer; E11.42 Type 2 diabetes mellitus with diabetic polyneuropathy; L97.529 Non-pressure chronic ulcer of other part of left foot with unspecified severity; N17.9 Acute kidney failure, unspecified; N25.89 Other disorders resulting from impaired renal tubular function; N14.0 Analgesic nephropathy; T39.395A Adverse effect of other nonsteroidal anti-inflammatory drugs [NSAID], initial encounter; B96.20 Unspecified Escherichia coli [E. coli] as the cause of diseases classified elsewhere; B95.2 Enterococcus as the cause of diseases classified elsewhere; D64.9 Anemia, unspecified; E66.9 Obesity, unspecified; E11.22 Type 2 diabetes mellitus with diabetic chronic kidney disease; N18.9 Chronic kidney disease, unspecified; E11.65 Type 2 diabetes mellitus with hyperglycemia; E87.6 Hypokalemia; E83.42 Hypomagnesemia; E78.5 Hyperlipidemia, unspecified; E83.39 Other disorders of phosphorus metabolism; R11.2 Nausea with vomiting, unspecified; R42 Dizziness and giddiness; Z16.21 Resistance to vancomycin; Z16.11 Resistance to penicillins; Z89.421 Acquired absence of other right toe(s); Z68.30 Body mass index [BMI] 30.0-30.9, adult; Z79.4 Long term (current) use of insulin
CPT/HCPCS: 36246; 36569; 36600; 70450; 71045; 73718; 75630; 76937; 80048; 80053; 80069; 81001; 81003; 82043; 82436; 82550; 82803; 82962; 83036; 83735; 84100; 84133; 84155; 84300; 85025; 85610; 85651; 86140; 87040; 87070; 87075; 87102; 88304; 88305; 88311; 93922; 94640; 94664; 96365; 96366; 96368; 97110; 97116; 97162; 97167; 97530; 97535; C1713; C1769; C1887; C1894; C9113; J0690; J0692; J0696; J1100; J1335; J1580; J1644; J1815; J1956; J2250; J2370; J2405; J2710; J2765; J2795; J3010; J3370; J3475; J3480; J7030; J7040; J7050; J7070; Q4104-JC; Q9967

== ENCOUNTER 2018-07-09 09:52 | Day surgery (SDC) | payer BC ==
[~2018-07-09] VITALS: Ht 182.9 cm; Wt 100.8 kg
[2018-07-09] VITALS (10 sets, daily range): BP systolic 134–158; BP diastolic 72–91; PULSE 74–84; RESP 10–18; Ht 182.9 cm; Wt 100.8 kg
[~2018-07-09 09:52] MED LIST changes: -ASC500 PO; +GLYCOPYRROLATE 0.4 MG INJ ONE; -LEVO750T25 PO; +LINA5TAB PO; +METF-849 PO; -MULTI PO; +SIMV20TA PO; +TRA50 PO; -ZINC220C5 PO
[2018-07-09] MEDS ORDERED: TRA100 PO (10:47)
[2018-07-09] MEDS ORDERED: LINA5TAB PO (10:48)
[2018-07-09] MEDS ORDERED: SENN-120 PO (10:49)
[2018-07-09] MEDS ORDERED: MULTI PO (10:49)
[2018-07-09] MEDS ORDERED: METF100010 PO (10:50)
[2018-07-09] MEDS ORDERED: MAGN400O19 PO (10:50)
[2018-07-09] MEDS ORDERED: HYDR-4011 PO (10:51)
[2018-07-09] MEDS ORDERED: MIDAZOLAM 1 MG/ML 2 ML INJ ONE ×3 (10:52→13:11)
[2018-07-09] MEDS ORDERED: HYDR-3980 PO (10:52)
[2018-07-09] MEDS ORDERED: FENTAnyl 50 MCG/ML VIAL ONE ×2 (10:52→11:24)
[2018-07-09] MEDS ORDERED: ACET-2047 PO (10:53)
[2018-07-09] MEDS ORDERED: METOCLOPRAMIDE 10 MG INJ ONE (10:53)
[2018-07-09] MEDS ORDERED: ROPIVACAINE 0.2% 20 ML VIAL ONE (10:53)
[2018-07-09] MEDS ORDERED: ASC500 PO (10:54)
[2018-07-09] MEDS ORDERED: BISA10SU55 RC (10:55)
[2018-07-09] MEDS ORDERED: INSU100I12 SQ (10:59)
[2018-07-09] MEDS ORDERED: SOD CHLORIDE 0.9% 1,000 ML IV SCH (11:00)
--- NOTE | 2018-07-09 11:02 | PREAC ---
Date/Time of Note Date/Time of Note DATE: 07/09/18 TIME: 10:58 Anesthesia Eval and Record Evaluation Time Pre-Procedure Interview DATE: 07/09/18 TIME: 10:58 Age 57 Sex male NPO: 8 hrs Preoperative diagnosis L foot diabetic ulcer Planned procedure L foot wound bed prep and application of split thickness skin graft Past Medical History Past Medical History: Includes (PVD) Endo: Diabetes Heme: Anemia Surgery & Anesthesia Issues No known issue Meds Anticoagulation: No Beta Celeste within 24 hr: No Reason Beta Celeste not given: Pt. not on B-Celeste Reported Medications Bisacodyl (Dulcolax) 10 Mg Supp.rect, 10 MG RC DAILY PRN for CONSTIPATION, SUPP.RECT 07/09/18 Ascorbic Acid (Vitamin C) 500 Mg Tab, 500 MG PO BID, TAB 07/09/18 Acetaminophen* (Acetaminophen*) 650 Mg Tablet, 650 MG PO Q4 PRN for MILD PAIN LEVEL 1-3, #30 TAB 07/09/18 Hydrocodone/Acetaminophen ([place] 10-325 Tablet) 1 Each Tablet, 1 EACH PO Q6 PRN for SEVERE PAIN LEVEL 7-10, TAB 07/09/18 Hydrocodone/Acetaminophen ([place] 5-325 Tablet) 1 Each Tablet, 1 EACH PO Q6 PRN for MODERATE PAIN LEVEL 4-6, TAB 07/09/18 Metformin Hcl* (Metformin Hcl*) 1,000 Mg Tablet, 1000 MG PO WITH BREAKFAST DINNE, #60 TAB 07/09/18 Magnesium Hydroxide* (Milk Of Magnesia*) 400 Mg/5 Ml Oral.susp, 30 ML PO DAILY PRN for CONSTIPATION, ML 07/09/18 Multivitamins* (Theragran*) 1 Tab Tab, 1 TAB PO DAILY, TAB 07/09/18 Sennosides* (Senna Lax*) 8.6 Mg Tablet, 1 TAB PO DAILY, TAB 07/09/18 Linagliptin (TRADJENTA) 5 Mg Tablet, 5 MG PO DAILY, TAB 07/09/18 Trazodone Hcl* (Trazodone Hcl*) 100 Mg Tablet, 100 MG PO QHS, #30 TAB 07/09/18 Discontinued Reported Medications Simvastatin* (Zocor*) 20 Mg Tablet, 20 MG PO QHS, #30 TAB 04/29/18 Discontinued Scripts Metformin* (Glucophage*) 500 Mg Tab, 1000 MG PO BID WITH MEALS for 30 Days, TAB Prov:JANELL YOO 05/21/18 Linagliptin (TRADJENTA) 5 Mg Tablet, 5 MG PO DAILY for 30 Days, TAB Prov:JANELL YOO 05/21/18 Trazodone Hcl* (Desyrel*) 50 Mg Tablet, 100 MG PO HS for 30 Days, TAB Prov:JANELL YOO 05/21/18 Meds reviewed: Yes Allergies Coded Allergies: No Known Allergy (Unverified , 04/29/18) Allergies Reviewed: Yes Labs/Studies Labs Reviewed: Reviewed by anesthesiologist test: N/A Pre-procedure Exam Airway: Adequate mouth opening, Adequate thyromental dist Mallampati: Mallampati II Teeth: Normal Lung: Normal Heart: Normal ASA Physical Status ASA physical status: 2 Emergency: None Planned Anesthetic General/MAC: MAC Pre-operative Attestations Prior to commencing anesthesia and surgery, the patient was re-evaluated, there was verification of: *The patient's identity *The results of appropriate recent lab work and preoperative vital signs *The above evaluation not changing prior to induction *Anesthetic plan, risk benefits, alternative and complications discussed with patient/family; questions answered; patient/family understands, accepts and wishes to proceed. BENTON MADERA July 09, 2018 11:02
[2018-07-09] MEDS ORDERED: CEFAZOLIN 1 GM INJ ONE (11:23)
[2018-07-09] MEDS ORDERED: LIDOCAINE 2% (SDV) 5 ML INJ ONE (11:23)
[2018-07-09] MEDS ORDERED: PROPOFOL 40 ML ONE (11:23)
[2018-07-09] MEDS ORDERED: ALBUTEROL 0.083% (NEB) 2.5 MG/3 ML AMP HHN PRN (11:30)
[2018-07-09] MEDS ORDERED: DIPHENHYDRAMINE 50 MG INJ IV PRN (11:30)
[2018-07-09] MEDS ORDERED: ACETAMINOPHEN 500 MG TAB PO ONE (11:30)
[2018-07-09] MEDS ORDERED: morphine 2 MG INJ IV PRN ×2 (11:30)
[2018-07-09] MEDS ORDERED: FENTAnyl 50 MCG/ML VIAL IV PRN ×2 (11:30)
[2018-07-09] MEDS ORDERED: OXYCODONE/ACETAMINOPHEN (5/325) TAB PO PRN ×2 (11:30)
[2018-07-09] MEDS ORDERED: HYDROmorphONE 1 MG/5 ML IV SYRINGE IV PRN ×3 (11:30)
[2018-07-09] MEDS ORDERED: LABETALOL HCL 20MG INJ IV PRN (11:30)
[2018-07-09] MEDS ORDERED: MEPERIDINE 25 MG INJ IV PRN (11:30)
[2018-07-09] MEDS ORDERED: ONDANSETRON 4 MG INJ IV PRN (11:30)
[2018-07-09] MEDS ORDERED: MINERAL OIL LIGHT 10 ML VIAL ONE (12:50)
[2018-07-09] MEDS ORDERED: LIDOCAINE 1% (MPF) 30 ML INJ ONE (12:50)
--- NOTE | 2018-07-09 12:55 | HPN ---
Date/Time of Note Date/Time of Note DATE: 07/09/18 TIME: 12:54 Interval H&P Admission Note Pt. seen H&P reviewed: No system changes RACHELLE WAITE DPM July 09, 2018 12:54
[2018-07-09] MEDS ORDERED: LIDOCAINE 2%/EPI 30 ML INJ ONE (13:41)
[2018-07-09] MEDS ORDERED: LIDOCAINE 2%/EPI (MDV) 20ML INJ INJ ONE (13:52)
--- NOTE | 2018-07-09 14:05 | SIPON ---
Date/Time of Note Date/Time of Note DATE: 07/09/18 TIME: 14:03 Operative Report Preoperative Diagnosis Left foot Diabetic foot ulceration DM2 with PN Postoperative Diagnosis same Operation/Procedure Performed Left foot wound bed prep Left foot STSG Surgeon see signature line medical assistant per diem Mick Boston DPM Anesthesia: MAC Estimated blood loss: 0 - 10 ml's Transfusion Required none Specimen wound culture left foot Grafts/Implants none Complications none RACHELLE WAITE DPM July 09, 2018 14:05
[2018-07-09] MEDS ORDERED: KETOROLAC 30 MG INJ IV PRN (14:30)
--- NOTE | 2018-07-09 18:50 | OPR ---
DATE OF OPERATION: 07/09/2018 SURGEON: Rachelle Perez DPM RECORD MAKER: Nimisha Henning DPM PREOPERATIVE DIAGNOSES: 1. Left foot diabetic foot ulceration. 2. Diabetes type 2 with peripheral neuropathy. POSTOPERATIVE DIAGNOSES: 1. Left foot diabetic foot ulceration. 2. Diabetes type 2 with peripheral neuropathy. PROCEDURE PERFORMED: 1. Left foot wound bed preparation for skin grafting. 2. Split-thickness skin graft to the left foot. PATHOLOGY: Wound cultures. ANESTHESIA: MAC with local, lidocaine 1% to the left foot and lidocaine 2% with epinephrine to donor site. HEMOSTASIS: Compression. ESTIMATED BLOOD LOSS: 5 to 10 mL COMPLICATIONS: None. INDICATION FOR PROCEDURE: This is a 57-year-old gentleman with a history of left foot infection stat us post incision and drainage. He has been following up weekly for debridements. He has had improve d wound appearance and at this time presents for closure. Discussed planned procedure, risks, benefits, potential complications. Foot was marked. Informed co nsent was obtained. PROCEDURE IN DETAIL: The patient brought in to the operating room and placed in the supine position. A formal timeout was performed, prepped with Betadine scrub and paint, and draped in the usual ster ile fashion. At this time, wounds were located at the plantar hallux and lateral aspect of the 5th metatarsal whic h were irrigated, cleansed, debrided and prepared for application of the graft material. Wound cultu res had been obtained and irrigated. Ulceration on the medial left 1st MPJ measured approximately 2 x 2 cm. Lateral aspect of the 5th metatarsal measurement of 1.5 x 1 cm. Hemostasis had been achieve d. Attention was directed to the donor site. Lateral ipsilateral thigh was injected with lidocaine 2% p [place]. Mineral oil applied to the surface of the skin and a split-thickness skin graft harvested 18/1 000 of an inch and meshed 1.5:1 then sutured to the recipient site using 3-0 nylon. Both sites were covered with Xeroform and the donor site with Tegaderm and soft dressing to the left foot, and the patient tolerated the procedure well. POSTOPERATIVE PLAN: Recommend elevation of the extremity, nonweightbearing to the left foot, and fol low up in outpatient in 1 to 2 weeks. Recommend keeping dressings clean, dry and intact. The patient did have Ancef 2 grams preoperatively. Dictated By: RACHELLE BALBUENA/LUCIEN Conf#: [id number] [facility]#: [id number] CC: NIMISHA HENNING DPM;*EndCC*
== END 2018-07-09 16:24 | disposition home or self-care (01) ==
LOC: SDS 09:52
PROVIDERS: ATTEND Podiatrist Foot & Ankle Surgery
DX: E11.621 Type 2 diabetes mellitus with foot ulcer (principal); E11.42 Type 2 diabetes mellitus with diabetic polyneuropathy; Z79.84 Long term (current) use of oral hypoglycemic drugs
CPT/HCPCS: 15120; 82962; 87070; 87075; 87102; J0690; J2250; J3010; Z7512; Z7610; J2765; J2795